=== PATIENT | female | born 1955 | race Caucasian/White ===

== ENCOUNTER 2019-12-30 10:20 | Emergency (ER) | payer MEDICARE, MEDICAID, SELFPAY ==
--- NOTE | ~2019-12-30 | CT_ITS ---
EXAMINATION: CT brain wo con DATE: 12/30/2019 12:01 INDICATION: Head injury. TECHNIQUE: Computed tomography (CT) of the head was performed without intravenous contrast. The mA wa s adjusted according to patient size. Iterative reconstruction technique was employed. The dose-lengt h product was 529.67 mGy-cm. COMPARISON: None FINDINGS: There is no intracranial hemorrhage, acute infarction, or abnormal intracranial mass lesion . The ventricles are normal in size. There is a right frontal lateral scalp hematoma. The paranasal s inuses are clear. The mastoid air cells are normal. The orbits are normal. IMPRESSION: 1. Normal brain. Reviewed, dictated and finalized at location A. IMPRESSION: 1. Normal brain.
[2019-12-30 10:48] VITALS: BP 152/83; PULSE 100; RESP 18; TEMP 37.3; O2SAT 97
--- NOTE | 2019-12-30 12:12 | ED.FALL ---
HPI - Fall General Chief Complaint: Wound/Laceration Stated Complaint: Fell scraped arm and head Source: patient and family Mode of arrival: ambulatory Limitations: no limitations History of Present Illness HPI Narrative: This is 64-year-old female patient presents after she had tripped outdoors and fell on an outstretched right forearm and hit her head has a hematoma right frontal scalp with no loss of consciousness there is no nausea vomiting no blurry vision no headache. Also has abrasions to her right forearm elbow and palm has good range of motion in her arms with no swelling no bruising just abrasions that were visualized. The patient is up-to-date with her tetanus. complaint: fall Onset (ago): hour(s) Fall from: standing Fall witnessed: yes, by family Place fall occurred: street Loss of consciousness: none Prolonged down time: no Symptoms prior to fall: none Context: tripped/slipped Location of injury: head Location of injury - extremities: Right: forearm (abrasions) Severity: mild Related Data Home Medications Medication Instructions Recorded Confirmed atorvastatin 40 mg DAILY 12/30/19 12/30/19 clopidogrel 75 mg DAILY 12/30/19 12/30/19 insulin NPH and regular human 70 unit SUBCUT BID 12/30/19 12/30/19 [Novolin 70/30 U-100 Insulin] lisinopril 40 mg DAILY 12/30/19 12/30/19 metoprolol succinate 50 mg PO DAILY 12/30/19 12/30/19 Allergies Allergy/AdvReac Type Severity Reaction Status Date / Time cephalexin [Keflex] Allergy Intermediate Hives Verified 12/30/19 10:58 No Known Allergies Allergy Mild Verified 12/30/19 10:58 Review of Systems Review of Systems: All systems reviewed & are unremarkable except as noted in HPI and below PMFSH Past Medical History Medical History Diabetes mellitus Family History Family History Other Family history of coronary artery disease Social History Social History Gender identity (if verbalized by the patient): Female Exam Const: General: no acute distress and alert Orientation/consciousness: patient oriented x3 HENMT: Head: normal to inspection, contusion and hematoma Head images: 1. Eyes: Pupils: Equal, round and reactive pupils present Neck: Neck: normal visual inspection Chest: Chest palpation & inspection: normal inspection of the chest and abnormal inspection of the chest Resp: Effort & Inspection: normal respiratory effort Cardio: Rate: regular rate Rhythm: regular rhythm GI: Auscultation: normal bowel sounds : General: Yes no CVA tenderness Back/Spine/Pelvis: Back: no CVA tenderness Skin: General skin exam: normal color Rashes: no rashes Wounds: wounds noted Other: Abrasions noted on right elbow and right palm area Neuro: General: patient oriented x3 and moves all extremities Course Vital Signs Vital signs: Vital Signs Temperature 37.3 C 12/30/19 10:48 Pulse Rate 100 12/30/19 10:48 Respiratory Rate 18 12/30/19 10:48 Blood Pressure 152/83 H 12/30/19 10:48 Pulse Oximetry 97 12/30/19 10:48 Temperature 37.3 C 12/30/19 10:48 Pulse Rate 100 12/30/19 10:48 Respiratory Rate 18 12/30/19 10:48 Blood Pressure 152/83 H 12/30/19 10:48 Pulse Oximetry 97 12/30/19 10:48 Critical Care Time Critical Care Time Critical Care Time: No Discharge Plan Discharge Clinical Impression: Multiple contusions Patient Disposition: Home, Self-Care Condition: Stable Instructions: Antibiotic Form, Concussion (ED), Head Injury (ED) Additional Instructions: follow-up with primary care physician if symptoms persist or worsen. Prescriptions: No Action atorvastatin 40 mg tablet 40 mg DAILY RF: 0 metoprolol succinate 50 mg tablet extended release 24 hr 50 mg PO DAILY RF: 0 Novolin 70/30 U-100 Insulin 100 uni
[2019-12-30 12:35] VITALS: RESP 18
== END 2019-12-30 12:30 | disposition home or self-care (01) ==
PROVIDERS: Emergency Provider Emergency Medicine; PCP Internal Medicine
DX: T14.8XXA Other injury of unspecified body region, initial encounter (principal); E11.9 Type 2 diabetes mellitus without complications; W01.0XXA Fall on same level from slipping, tripping and stumbling without subsequent striking against object, initial encounter
CPT/HCPCS: 70450; 99282; 99284

== ENCOUNTER 2020-07-18 15:13 | Observation (INO) | payer MEDICARE, MEDICAID, SELFPAY ==
[2020-07-18] VITALS (8 sets, daily range): BP systolic 96–161; BP diastolic 42–86; PULSE 82–94; RESP 18–20; TEMP 36.4–37.5; O2SAT 92–98; BMI 25.9
--- NOTE | ~2020-07-18 | CT_ITS ---
EXAMINATION: CT brain wo con EXAM DATE: 07/18/2020 17:55 INDICATION: dizziness, generalized weakness x 7 days TECHNIQUE: Spiral CT of the head was performed without contrast. Axial, coronal and sagittal images were reviewed. The dose-length product (DLP) for this examination was 605.33 mGy-cm. The exposure w as tailored according to patient size, and iterative reconstruction (ASIR) was used as additional dos e reduction technique. Comparison is made to prior examination from 12/30/2019. FINDINGS: There is no acute intraparenchymal hemorrhage. No evidence of intraparenchymal brain mass lesion. No evidence of acute infarction. Please note that initial head CT has limited sensitivity f or small or acute infarctions. There is mild periventricular and subcortical hypodensity, nonspecific but probably related to small vessel ischemic disease. There is mild prominence of the sulci and v entricles related to cerebral atrophy. There is intracranial carotid arteriosclerosis. There are n o extra-axial collections. There is no mass effect or midline shift. The orbits are unremarkable. Soft tissue is unremarkable. The visualized sinuses and mastoid air cells are well aerated. IMPRESSION: 1. No acute intracranial findings. 2. Mild age related findings. Reviewed, dictated and finalized at location A.
--- NOTE | ~2020-07-18 | XR_ITS ---
EXAMINATION: XR chest 2V 07/18/2020 16:00 INDICATION: Shortness of breath. Weakness. Chest tightness. PROCEDURE: 2 view chest COMPARISON: Comparison to multiple prior studies sequentially, with oldest reviewed study dated 05/2008. FINDINGS: The lungs are clear. The cardiomediastinal silhouette is within normal limits. There are no pleural effusions. There is no pneumothorax suspected. IMPRESSION: 1: NO ACUTE CARDIOPULMONARY DISEASE. Reviewed, dictated and finalized at location B.
--- NOTE | 2020-07-18 15:24 | ED.WEAKNESS ---
HPI - Weakness General Chief complaint: Dizziness Stated complaint: weak,chills,dizzy Time Seen by Provider: 07/18/20 15:24 Source: patient Mode of arrival: ambulatory Limitations: no limitations History of Present Illness HPI Narrative: 65-year-old woman comes in today complaining of weakness and chills and lightheadedness when she stands for the last week. Patient states that she has had no cough, sore throat, nausea, vomiting, diarrhea, abdominal pain or rash. She denies any sick exposures. Patient states that he has a history of coronary artery disease but has had no chest pain or shortness of breath. MD Complaint: generalized weakness Onset (ago): week(s) (1) Duration: constant Migration: none Severity: mild Relieving factors: rest Related Data Home Medications Medication Instructions Recorded Confirmed atorvastatin 40 mg DAILY 12/30/19 12/30/19 insulin NPH and regular human 70 unit SUBCUT BID 12/30/19 12/30/19 [Novolin 70/30 U-100 Insulin] metoprolol succinate 50 mg PO DAILY 12/30/19 12/30/19 aspirin [Aspirin Childrens] 81 mg PO DAILY 07/18/20 07/18/20 lisinopril-hydrochlorothiazide 2 tablet PO DAILY 07/18/20 07/18/20 multivit with min-folic acid 1 tablet PO DAILY 07/18/20 07/18/20 [Women's Multivitamin Gummies] nifedipine [Adalat CC] 30 mg PO DAILY 07/18/20 07/18/20 omega 0-yhy-bzq-fish oil [Fish Oil] 1 cap PO DAILY 07/18/20 07/18/20 Allergies Allergy/AdvReac Type Severity Reaction Status Date / Time cephalexin [Keflex] Allergy Intermediate Hives Verified 12/30/19 10:58 No Known Allergies Allergy Mild Verified 12/30/19 10:58 Review of Systems Constitutional: Constitutional: Reports chills, Denies fever(s) and Reports weakness Eyes: Eyes: Denies change in vision and Denies photophobia ENT: Denies dysphagia, Denies nasal congestion and Denies sore throat Cardiovascular: Cardiovascular: Denies chest pain and Denies radiating jaw, neck or arm pain Respiratory: Respiratory: Denies cough, Denies dyspnea and Denies wheezing Gastrointestinal: Gastrointestinal: Denies abdominal pain, Denies diarrhea, Denies nausea and Denies vomiting Genitourinary: Genitourinary: Denies nocturia and Denies dysuria Musculoskeletal: Musculoskeletal: Denies arthralgias, Denies joint swelling and Denies muscle cramps Integumentary/Breasts: Skin/Breast: Denies pruritus, Denies erythema and Denies rash Neurologic: Denies vertigo, Denies dizziness and Denies syncope Endocrine: Endocrine: Denies polydipsia and Denies polyuria Hematologic/Lymphatic: Hematologic/Lymphatic: Denies easy bleeding and Denies easy bruising Allergic/Immunologic: Allergic/Immunologic: Denies lip swelling and Denies tongue swelling PMFSH Past Medical History Medical History Coronary artery disease Diabetes mellitus Hyperlipidemia Hypertension Surgical History Surgical History History of appendectomy S/P coronary artery stent placement x2 Family History Family History Other Family history of coronary artery disease Social History Social History Smoking status: Never smoker Alcohol use details: rare Substance use: never Living arrangements: alone Occupation/Education: retired Gender identity (if verbalized by the patient): Female Exam Const: General: healthy appearing and alert Orientation/consciousness: patient oriented x3 Limitations: no limitations Other: mild acute distress HENMT: Head: normal to inspection Ears: external ears normal, TM's normal bilaterally and EAC's normal General nose exam: Normal nares present Face and sinus: normal facial exam Mouth: Yes moist mucous membranes Throat: posterior oropharynx normal Eyes: Conjunctivae: conjunctivae normal Pupils: Equal, round a
--- NOTE | 2020-07-18 15:30 | ECG_ITS ---
Measurements Intervals [place] Rate: 85 P: 54 FL: 124 QRS: 67 QRSD: 84 T: 81 QT: 336 QTc: 400 Interpretive Statements SINUS RHYTHM BASELINE WANDER- I, II, III, AVR, AVL, AVF NORMAL ECG Electronically Signed On 07-18-2020 15:58:02 CDT by Ricki Torrez D.O.
[2020-07-18 15:48] LABS: Basophils Absolute Auto 0.01 K/mm3 (0.00-0.10); Basophils Percent Auto 0.1 % (0.0-1.0); Eosinophils Absolute Auto 0.02 K/mm3 (0.02-0.50); Eosinophils Percent Auto 0.3 % (1.0-6.0); Hematocrit 34.9 % (35.0-42.0); Hemoglobin 11.9 g/dL (11.7-13.8); Immature Granulocyte Absolute 0.03 K/mm3 (0.00-0.00); Immature Granulocyte Percent A 0.4 % (0.0-0.0); Lymphocytes Absolute Auto 1.53 K/mm3 (1.10-4.50); Lymphocytes Percent Auto 21.4 % (18.0-42.0); Mean Corpuscular HGB Conc 34.1 g/dL (32.0-36.0); Mean Corpuscular Volume 90.9 fL (78.0-102.0); Mean Platelet Volume 9.2 fl (9.2-11.8); Monocytes Absolute Auto 0.44 K/mm3 (0.10-0.90); Monocytes Percent Auto 6.2 % (2.0-11.0); Neutrophils Absolute Auto 5.1 K/mm3 (1.7-7.2); Neutrophils Percent Auto 71.6 % (50.0-70.0); Platelet Count Result 184 K/mm3 (150-420); Red Blood Count 3.84 M/mm3 (4.20-5.40); Red Cell Distribution Width 12.6 % (11.6-14.4); White Blood Count 7.2 K/mm3 (4.8-10.8)
[2020-07-18] MEDS: SODIUM CHLORIDE 0.9% IV 1,000 ML 999 ML IV CONT (15:49)
[2020-07-18 16:03] LABS: D Dimer 0.47 mg/L (0.19-0.50); Partial Thromboplastin Time 27.3 SEC (22.3-31.6)
[2020-07-18 16:06] LABS: Lactic Acid Reflex 1.4 mmol/L (0.4-2.0)
[2020-07-18 16:12] LABS: Alanine Aminotransferase 27 U/L (14-59); Albumin Level 3.3 g/dL (3.4-5.0); Alkaline Phosphatase 87 U/L (46-116); Anion Gap 9 mmol/L (8-16); Aspartate Amino Transferase 18 U/L (15-37); Bilirubin,Total 0.8 mg/dL (0.00-1.00); Blood Urea Nitrogen 25 mg/dL (7-18); CRP 2.8 mg/dL (0.0-0.9); Carbon Dioxide 26 mmol/L (21-32); Chloride 92 mmol/L (98-108); Estimated Glomerular Filt Rate 52; Glucose 229 mg/dL (70-99); Osmolality Calculated 275 mOsm/kg (285-295); Potassium 4.3 mmol/L (3.5-5.1); Sodium 127 mmol/L (136-145); Total Protein 7.8 g/dL (6.4-8.2)
[2020-07-18 16:13] LABS: Troponin I < 0.02 ng/mL (0.00-0.056)
[2020-07-18 16:26] LABS: Creatine Kinase 68 U/L (26-192); Lactate Dehydrogenase 237 U/L (81-234)
[2020-07-18 16:36] LABS: Add Urine Microscopic? YES; Appearance Urine Clear (Clear); Bilirubin Urine Negative (Negative); Blood Urine Negative (Negative); Color Urine Yellow (Yellow); Glucose Urine UA Trace (Negative); Ketones Urine Negative (Negative); Leukocyte Esterase Ur Negative LEU/UL (Negative); Nitrate Urine Negative (Negative); Protein Urine Negative (Negative); Urobilinogen Urine 0.2 mg/dL (0.2-1.0); pH Urine 5.5 (5.0-8.0)
[2020-07-18 16:44] LABS: RBC Urine 0-2 /hpf (0-2); WBC Urine 0-3 /hpf (0-3)
[2020-07-18 16:45] LABS: Bacteria Urine Trace /hpf; Squamous Epithelial Cell Urine Few /hpf (Few)
--- NOTE | 2020-07-18 18:40 | PC.NURSE ---
Admitted to 210 for PUI Covid, telemetry applied, admit diagnosis of dehydration and hyponatremia, states 1 week hx of dizzyness, weakness, body aches, no fever, no n/v/d,
[2020-07-18 19:23] LABS: BNP 43.3 pg/mL (0-100); Troponin I < 0.02 ng/mL (0.00-0.056)
[2020-07-18] MEDS: SODIUM CHLORIDE 0.9% IV 1,000 ML 100 ML IV CONT (19:23)
--- NOTE | 2020-07-18 20:00 | PC.NURSE ---
Patient watching tv. Respirations even and unlabored. Denies pain/complaints/needs/dizziness @ this time. IVF infusing to site in RFA without difficulty. No distress noted. Call light in reach.
[2020-07-18] MEDS: INSULIN HUMAN ISOPHAN/REGULAR 70/30 (*BKC) 100 UNITS/ML 70 UNITS SUB-Q (20:10)
--- NOTE | 2020-07-18 20:20 | PC.NURSE ---
Patient requested/given turkey sandwich and fruit cup. Call light in reach.
[2020-07-18 21:05] LABS: Glucose Point of Care 236 (65-105)
--- NOTE | 2020-07-18 21:50 | PC.NURSE ---
Patient ambulated to/from bathroom with IV pole with CGA and steady gait. Respirations remained even and unlabored. Denies SOB/pain/complaints/needs/dizziness @ this time. IVF infusing to site in RFA without difficulty. No distress noted. Call light in reach.
[2020-07-18 22:26] LABS: Anion Gap 8 mmol/L (8-16); Blood Urea Nitrogen 19 mg/dL (7-18); Calcium 8.9 mg/dL (8.5-10.1); Carbon Dioxide 27 mmol/L (21-32); Chloride 98 mmol/L (98-108); Estimated CRCL calculation 49 ml/min; Estimated Glomerular Filt Rate > 60; Glucose 197 mg/dL (70-99); Osmolality Calculated 283 mOsm/kg (285-295); Potassium 4.2 mmol/L (3.5-5.1); Sodium 133 mmol/L (136-145)
[2020-07-18 22:28] LABS: Troponin I < 0.02 ng/mL (0.00-0.056)
--- NOTE | 2020-07-19 01:05 | PC.NURSE ---
Patient appears to be sleeping by the rise and fall of her chest. No distress noted. IVF infusing to site in RFA without difficulty. Call light in reach.
[2020-07-19 03:46] VITALS: BP 141/62; PULSE 88; RESP 18; TEMP 37.2; O2SAT 94
[2020-07-19] MEDS: SODIUM CHLORIDE 0.9% IV 1,000 ML 100 ML IV CONT (05:30)
[2020-07-19 05:49] LABS: Basophils Absolute Auto 0.02 K/mm3 (0.00-0.10); Basophils Percent Auto 0.3 % (0.0-1.0); Eosinophils Absolute Auto 0.06 K/mm3 (0.02-0.50); Eosinophils Percent Auto 0.8 % (1.0-6.0); Hemoglobin 11.2 g/dL (11.7-13.8); Immature Granulocyte Absolute 0.02 K/mm3 (0.00-0.00); Immature Granulocyte Percent A 0.3 % (0.0-0.0); Lymphocytes Absolute Auto 2.73 K/mm3 (1.10-4.50); Lymphocytes Percent Auto 34.5 % (18.0-42.0); Mean Corpuscular HGB Conc 33.9 g/dL (32.0-36.0); Mean Corpuscular Hemoglobin 30.9 pg (27.0-31.0); Mean Corpuscular Volume 90.9 fL (78.0-102.0); Mean Platelet Volume 9.2 fl (9.2-11.8); Monocytes Absolute Auto 0.53 K/mm3 (0.10-0.90); Monocytes Percent Auto 6.7 % (2.0-11.0); Neutrophils Absolute Auto 4.6 K/mm3 (1.7-7.2); Neutrophils Percent Auto 57.4 % (50.0-70.0); Platelet Count Result 206 K/mm3 (150-420); Red Blood Count 3.63 M/mm3 (4.20-5.40); Red Cell Distribution Width 12.6 % (11.6-14.4); White Blood Count 7.9 K/mm3 (4.8-10.8)
[2020-07-19 06:04] LABS: Anion Gap 8 mmol/L (8-16); Blood Urea Nitrogen 15 mg/dL (7-18); Calcium 8.6 mg/dL (8.5-10.1); Carbon Dioxide 27 mmol/L (21-32); Chloride 100 mmol/L (98-108); Estimated CRCL calculation 57 ml/min; Estimated Glomerular Filt Rate > 60; Glucose 57 mg/dL (70-99); Osmolality Calculated 278 mOsm/kg (285-295); Phosphorus 2.8 mg/dL (2.6-4.7); Potassium 3.8 mmol/L (3.5-5.1); Sodium 135 mmol/L (136-145)
--- NOTE | 2020-07-19 07:30 | PC.NURSE ---
bedside glucose 58, orange juice with sugar given, denies s/s of low glucose, advised breakfast would be here at 0800
[2020-07-19 08:00] VITALS: BP 145/53; PULSE 79; RESP 18; TEMP 35.9; O2SAT 96
--- NOTE | 2020-07-19 08:19 | PC.NURSE ---
EAting breakfast at this time, no dizzyness noted, feels good today
[2020-07-19 08:26] LABS: Glucose Point of Care 58 (65-105)
--- NOTE | 2020-07-19 09:00 | PC.NURSE ---
fluids infusing, insulin held at this time, patient aware, did receive insulin late in day yesterday, no dizzyness, denies needs, sitting quietly in bed,
--- NOTE | 2020-07-19 09:01 | PHAR ---
07/19/20 08:45 - SPOKE W/[facility] AND CONFIRMED PT. TAKES HUMULIN 70/30 INSULIN 70U BID. TLS
[2020-07-19 09:06] VITALS: PULSE 79
[2020-07-19] MEDS: OMEGA 3 POLYUNSAT FATTY ACIDS 1 GM CAP PO (09:06)
[2020-07-19] MEDS: METOPROLOL SUCCINATE EXT REL 50 MG TABCR 100 MG PO (09:06)
[2020-07-19] MEDS: ASPIRIN 81 MG CHEWABLE TABLET PO (09:06)
[2020-07-19] MEDS: THERAPEUTIC MULTIVITAMINS/MINERALS TAB (*BKC) 1 TABLET PO (09:07)
[2020-07-19] MEDS: lisinopriL 20 MG TABLET 40 MG PO (09:07)
[2020-07-19] MEDS: NIFEdipine 30 MG TAB.ER.24 PO (09:08)
[2020-07-19] MEDS: ATORVASTATIN 40 MG TABLET PO (09:08)
--- NOTE | 2020-07-19 09:54 | PM.SD ---
Same Day Admit/Disch: HPI History of Present Illness Chief complaint: DEHYDRATION HYPONATREMIA Narrative: Sujata Prakash is a 65 year old female that presents to our ED with complaints of weakness chills dizziness and lightheadedness for approximately 1 week. Patient has a past medical history of CAD, diabetes mellitus, HLD, hypertension. On admission patient's WBC was within normal limits, H&H 11.2/33, sodium 133, potassium BUN and creatinine within normal limits, glucose 197, lactic acid within normal limit, troponin negative x2, BUN 43.3. Covid test pending, chest x-ray and head CT unremarkable patient is being admitted for gastritis, hypernatremia and dehydration. Today she notes that her condition has improved she no longer had weakness, chills, dizziness or lightheaded. She believes that the IV hydration helped her. The patient denies SOB, CP, palpitation, extremity numbness, lightheadedness, dizziness, constipation, diarrhea, chills, or fever. Patient is at baseline and agrees that she is ready for discharge today PMFSH Past Medical History Medical History Coronary artery disease Diabetes mellitus Hyperlipidemia Hypertension Surgical History Surgical History History of appendectomy S/P coronary artery stent placement x2 Family History Family History Other Family history of coronary artery disease Social History Social History Smoking status: Never smoker Alcohol use details: rare Substance use: never Living arrangements: alone Occupation/Education: retired Gender identity (if verbalized by the patient): Female Spiritual care concerns: No Same Day Admit/Disch: Med Pre-admit Medications Home Medications Medication Instructions Recorded Confirmed Type Novolin 70/30 U-100 Insulin 70 unit SUBCUT BID 12/30/19 07/18/20 History atorvastatin 40 mg PO DAILY 12/30/19 07/18/20 History metoprolol succinate [Toprol XL] 100 mg PO DAILY 12/30/19 07/18/20 History Women's Multivitamin Gummies 1 tablet PO DAILY 07/18/20 07/18/20 History aspirin [Aspirin Childrens] 81 mg PO DAILY 07/18/20 07/18/20 History lisinopril-hydrochlorothiazide 2 tablet PO DAILY 07/18/20 07/18/20 History nifedipine [Adalat CC] 30 mg PO DAILY 07/18/20 07/18/20 History omega 9-ahp-rpr-fish oil [Fish Oil] 1 cap PO DAILY 07/18/20 07/18/20 History Exam Narrative: Exam Narrative: GENERAL: This is a well-nourished, well-developed patient, in no apparent distress. HEAD: normocephalic, atraumatic. EYES: PERRL. Sclera clear/white. Vision is grossly intact. EARS: External ears normal, auditory canals clear and without drainage, TMs normal without perforation. Hearing grossly intact. NOSE: External nose normal with no obvious nasal discharge, nares without redness, no rhinorrhea. THROAT: Mucous membranes moist, posterior pharynx clear. NECK: Neck supple, non-tender without lymphadenopathy, masses or thyromegaly. CARDIOVASCULAR: Regular rate and rhythm without murmurs, gallops, or rubs. RESPIRATORY: Clear to auscultation. Breath sounds equal bilaterally. No wheezes, rales, or rhonchi. GASTROINTESTINAL: Abdomen soft, non-tender, nondistended. Bowel sounds are active. No hepato-splenomegaly, or palpable masses. No guarding. SKIN: warm, intact with no suspicious lesions or rash, good texture and turgor. NEURO: awake, alert, and oriented to person, place and time. There were no obvious focal neurologic abnormalities. Steady gait EXTREMITIES: Normal range of motion. No edema. No calf tenderness. Negative Homans sign bilaterally. BACK: Nontender without deformity or crepitance. No flank tenderness. DS: Data Data Completed and Pending Labs on day of discharge: Labs from last 24 hours 07/19/20 07/19/20 07/19/20 07:33 05:41 05
[2020-07-19 11:31] LABS: Glucose Point of Care 187 (65-105)
--- NOTE | 2020-07-19 11:31 | PC.NURSE ---
Called for ride home, saline lock removed, telemetry dc'd, up in room with no dizzyness
[2020-07-19 12:00] VITALS: PULSE 70; RESP 18; TEMP 36.1; O2SAT 95
--- NOTE | 2020-07-19 12:48 | PC.NURSE ---
Discharge instructions reveiwed with pateint, just waiting on ride home, up in room with no dizziness, no chest pain
--- NOTE | 2020-07-19 13:18 | PC.NURSE ---
WAiting on ride home, denies needs,
--- NOTE | 2020-07-19 13:35 | PC.NURSE ---
Discharge to home via wheel chair, discharge instructions reviewed with patient, no questions voiced
[2020-07-19 23:56] LABS: SARS-CoV-2 RNA PCR Positive
--- NOTE | 2020-07-28 13:52 | PC.NURSE ---
Pt states she understood her discharge instructions and everybody treated me wonderful, the nurses were so kind .
== END 2020-07-19 13:35 | disposition home or self-care (01) ==
LOC: CHSED 17:02 → CHS2ND 17:41
PROVIDERS: Admitting Provider Emergency Medicine; Emergency Provider Emergency Medicine; PCP Internal Medicine; Visit Provider Emergency Medicine
DX: U07.1 COVID-19 (principal); E86.0 Dehydration; E87.1 Hypo-osmolality and hyponatremia; I25.10 Atherosclerotic heart disease of native coronary artery without angina pectoris; E11.9 Type 2 diabetes mellitus without complications; E78.5 Hyperlipidemia, unspecified; I10 Essential (primary) hypertension; Z95.5 Presence of coronary angioplasty implant and graft
CPT/HCPCS: 36415; 70450; 71046; 80048; 80053; 81001; 82550; 83605; 83615; 83735; 83880; 84100; 84484; 85025; 85380; 85610; 85730; 86140; 87040; 87635; 93005; 96360; 96361; 99285; A9270; C9803; G0378; J1815; J7030; U0003

== ENCOUNTER 2020-08-02 20:48 | Emergency (ER) | payer MEDICARE, MEDICAID, SELFPAY ==
[2020-08-02 21:04] VITALS: BP 118/95; PULSE 106; RESP 20; TEMP 36.8; O2SAT 99
--- NOTE | 2020-08-02 21:04 | ED.WEAKNESS ---
HPI - Weakness General Chief complaint: Weakness Stated complaint: Weak dry mouth Time Seen by Provider: 08/02/20 21:04 Source: patient Mode of arrival: ambulatory Limitations: no limitations History of Present Illness HPI Narrative: 65-year-old woman with a history of diabetes, coronary artery disease, and hypertension comes in today complaining of weakness and dry mouth. Patient states that she was here 2 weeks ago, had hyponatremia, and was diagnosed with COVID-19. She was kept overnight and went home the next day after her sodium was corrected with normal saline. She also complains of a sore throat. Patient states that she has had no chest pain, shortness of breath, nausea, vomiting, dysuria, hematuria, abdominal pain. MD Complaint: generalized weakness Onset (ago): day(s) Duration: constant Location: generalized Migration: none Severity: mild Relieving factors: none Exacerbating factors: none Context: history of similar Related Data Home Medications Medication Instructions Recorded Confirmed Novolin 70/30 U-100 Insulin 70 unit SUBCUT BID 12/30/19 07/18/20 atorvastatin 40 mg PO DAILY 12/30/19 07/18/20 metoprolol succinate [Toprol XL] 100 mg PO DAILY 12/30/19 07/18/20 Women's Multivitamin Gummies 1 tablet PO DAILY 07/18/20 07/18/20 aspirin [Aspirin Childrens] 81 mg PO DAILY 07/18/20 07/18/20 nifedipine [Adalat CC] 30 mg PO DAILY 07/18/20 07/18/20 omega 3-dcg-tit-fish oil [Fish Oil] 1 cap PO DAILY 07/18/20 07/18/20 Allergies Allergy/AdvReac Type Severity Reaction Status Date / Time cephalexin [Keflex] Allergy Intermediate Hives Verified 08/02/20 21:10 No Known Allergies Allergy Mild Verified 08/02/20 21:10 Review of Systems Constitutional: Constitutional: Reports as per HPI, Denies chills, Denies fever(s) and Reports weakness Eyes: Eyes: Denies change in vision and Denies photophobia ENT: Denies dysphagia, Denies nasal congestion and Denies sore throat Cardiovascular: Cardiovascular: Denies chest pain and Denies radiating jaw, neck or arm pain Respiratory: Respiratory: Denies cough, Denies dyspnea and Denies wheezing Gastrointestinal: Gastrointestinal: Denies abdominal pain, Denies diarrhea, Denies nausea and Denies vomiting Genitourinary: Genitourinary: Denies hematuria, Denies nocturia and Denies dysuria Musculoskeletal: Musculoskeletal: Denies arthralgias and Denies joint swelling Integumentary/Breasts: Skin/Breast: Denies pruritus, Denies erythema and Denies rash Neurologic: Denies vertigo, Denies dizziness and Denies syncope Hematologic/Lymphatic: Hematologic/Lymphatic: Denies easy bleeding and Denies easy bruising Allergic/Immunologic: Allergic/Immunologic: Denies lip swelling and Denies tongue swelling PMFSH Past Medical History Medical History Coronary artery disease Diabetes mellitus Hyperlipidemia Hypertension Surgical History Surgical History History of appendectomy S/P coronary artery stent placement x2 Family History Family History Other Family history of coronary artery disease Social History Social History Smoking status: Never smoker Substance use: never Gender identity (if verbalized by the patient): Female Spiritual care concerns: No Exam Const: General: no acute distress and alert Orientation/consciousness: patient oriented x3 Limitations: no limitations HENMT: Head: normal to inspection Ears: TM's normal bilaterally and EAC's normal General nose exam: Normal nares present Face and sinus: normal facial exam Mouth: Yes moist mucous membranes Throat: posterior oropharynx normal Eyes: Conjunctivae: conjunctivae normal Pupils: Equal, round and reactive pupils present EOM: EOMs intact bilaterally Direct Ophthalmoscopy: no photop
--- NOTE | 2020-08-02 21:07 | ECG_ITS ---
Measurements Intervals [place] Rate: 97 P: 67 RI: 144 QRS: 67 QRSD: 85 T: 65 QT: 310 QTc: 394 Interpretive Statements SINUS RHYTHM MINIMAL Q WAVES- INF/LAT LEADS BORDERLINE ECG Electronically Signed On 08-03-2020 7:12:58 [employer] by Ricki Torrez D.O.
[2020-08-02 21:29] LABS: Add Urine Microscopic? YES; Appearance Urine Clear (Clear); Bilirubin Urine Negative (Negative); Blood Urine Negative (Negative); Color Urine Yellow (Yellow); Glucose Urine UA 2+ (Negative); Ketones Urine Negative (Negative); Leukocyte Esterase Ur Negative (Negative); Nitrate Urine Negative (Negative); Protein Urine Negative (Negative); Specific Grav Ur <= 1.005 (1.010-1.020); Urobilinogen Urine 0.2 mg/dL (0.2-1.0)
[2020-08-02 21:29] LABS: Basophils Absolute Auto 0.06 K/mm3 (0.00-0.10); Basophils Percent Auto 0.6 % (0.0-1.0); Eosinophils Absolute Auto 0.19 K/mm3 (0.02-0.50); Eosinophils Percent Auto 1.7 % (1.0-6.0); Hematocrit 32.9 % (35.0-42.0); Hemoglobin 11.4 g/dL (11.7-13.8); Immature Granulocyte Absolute 0.05 K/mm3 (0.00-0.00); Immature Granulocyte Percent A 0.5 % (0.0-0.0); Lymphocytes Absolute Auto 2.84 K/mm3 (1.10-4.50); Lymphocytes Percent Auto 26.1 % (18.0-42.0); Mean Corpuscular HGB Conc 34.7 g/dL (32.0-36.0); Mean Corpuscular Hemoglobin 30.9 pg (27.0-31.0); Mean Corpuscular Volume 89.2 fL (78.0-102.0); Mean Platelet Volume 8.5 fl (9.2-11.8); Monocytes Absolute Auto 0.73 K/mm3 (0.10-0.90); Monocytes Percent Auto 6.7 % (2.0-11.0); Neutrophils Percent Auto 64.4 % (50.0-70.0); Platelet Count Result 277 K/mm3 (150-420); Red Blood Count 3.69 M/mm3 (4.20-5.40); Red Cell Distribution Width 12.4 % (11.6-14.4); White Blood Count 10.9 K/mm3 (4.8-10.8)
[2020-08-02 21:35] LABS: Bacteria Urine Trace /hpf; RBC Urine 0-2 /hpf (0-2); Squamous Epithelial Cell Urine Few /hpf (Few); WBC Urine 0-3 /hpf (0-3)
[2020-08-02 21:39] VITALS: BP 136/66; PULSE 95
[2020-08-02 21:40] VITALS: BP 136/65; BP 144/68; PULSE 101; PULSE 98
[2020-08-02 21:48] LABS: Lactic Acid Reflex 2.5 mmol/L (0.4-2.0)
[2020-08-02 21:54] LABS: Alanine Aminotransferase 26 U/L (14-59); Albumin Level 3.2 g/dL (3.4-5.0); Alkaline Phosphatase 86 U/L (46-116); Anion Gap 9 mmol/L (8-16); Aspartate Amino Transferase 10 U/L (15-37); Bilirubin,Total 0.6 mg/dL (0.00-1.00); Blood Urea Nitrogen 17 mg/dL (7-18); Calcium 9.2 mg/dL (8.5-10.1); Carbon Dioxide 26 mmol/L (21-32); Chloride 89 mmol/L (98-108); Estimated CRCL calculation 44 ml/min; Estimated Glomerular Filt Rate 56; Glucose 281 mg/dL (70-99); Lactate Dehydrogenase 167 U/L (81-234); Osmolality Calculated 269 mOsm/kg (285-295); Potassium 4.2 mmol/L (3.5-5.1); Sodium 124 mmol/L (136-145); Total Protein 7.5 g/dL (6.4-8.2)
[2020-08-02 21:55] LABS: Troponin I < 0.02 ng/mL (0.00-0.056)
[2020-08-02 21:56] LABS: Thyroid Stimulating Hormone Reflex 0.63 u/IU/mL (0.36-3.74)
[2020-08-02] MEDS: SODIUM CHLORIDE 0.9% IV 1,000 ML 999 ML IV CONT (22:07)
[2020-08-02 22:50] VITALS: PULSE 95; RESP 20; O2SAT 99
== END 2020-08-02 22:51 | disposition home or self-care (01) ==
PROVIDERS: Emergency Provider Emergency Medicine; PCP Internal Medicine
DX: E87.1 Hypo-osmolality and hyponatremia (principal)
CPT/HCPCS: 36415; 80053; 81001; 83605; 83615; 84443; 84484; 85025; 93005; 96360; 99284; J7030

== ENCOUNTER 2020-08-05 14:35 | Emergency (ER) | payer MEDICARE, MEDICAID, SELFPAY ==
[2020-08-05 15:23] VITALS: BP 149/68; PULSE 92; RESP 16; TEMP 37; O2SAT 98
[2020-08-05 16:22] LABS: Basophils Absolute Auto 0.05 K/mm3 (0.00-0.10); Basophils Percent Auto 0.6 % (0.0-1.0); Eosinophils Absolute Auto 0.14 K/mm3 (0.02-0.50); Eosinophils Percent Auto 1.8 % (1.0-6.0); Hematocrit 36.3 % (35.0-42.0); Hemoglobin 12.1 g/dL (11.7-13.8); Immature Granulocyte Absolute 0.05 K/mm3 (0.00-0.00); Immature Granulocyte Percent A 0.6 % (0.0-0.0); Lymphocytes Absolute Auto 2.05 K/mm3 (1.10-4.50); Lymphocytes Percent Auto 26.5 % (18.0-42.0); Mean Corpuscular HGB Conc 33.3 g/dL (32.0-36.0); Mean Corpuscular Hemoglobin 30.3 pg (27.0-31.0); Mean Corpuscular Volume 90.8 fL (78.0-102.0); Mean Platelet Volume 8.7 fl (9.2-11.8); Monocytes Absolute Auto 0.47 K/mm3 (0.10-0.90); Monocytes Percent Auto 6.1 % (2.0-11.0); Neutrophils Percent Auto 64.4 % (50.0-70.0); Platelet Count Result 273 K/mm3 (150-420); Red Cell Distribution Width 12.7 % (11.6-14.4); White Blood Count 7.7 K/mm3 (4.8-10.8)
[2020-08-05 16:36] LABS: Alanine Aminotransferase 28 U/L (14-59); Albumin Level 3.5 g/dL (3.4-5.0); Alkaline Phosphatase 88 U/L (46-116); Anion Gap 6 mmol/L (8-16); Aspartate Amino Transferase 11 U/L (15-37); Bilirubin,Total 0.6 mg/dL (0.00-1.00); Blood Urea Nitrogen 13 mg/dL (7-18); Calcium 9.6 mg/dL (8.5-10.1); Carbon Dioxide 29 mmol/L (21-32); Chloride 97 mmol/L (98-108); Estimated CRCL calculation 56 ml/min; Estimated Glomerular Filt Rate > 60; Glucose 223 mg/dL (70-99); Osmolality Calculated 281 mOsm/kg (285-295); Potassium 4.8 mmol/L (3.5-5.1); Sodium 132 mmol/L (136-145); Total Protein 8.2 g/dL (6.4-8.2)
--- NOTE | 2020-08-05 16:45 | ED.WEAKNESS ---
HPI - Weakness General Chief complaint: Weakness Stated complaint: weakness, dry mouth, light headedness Source: patient Mode of arrival: ambulatory Limitations: no limitations History of Present Illness HPI Narrative: This is a 65-year-old female with a history of hypertension was seen in the emergency department about a week or so ago and had a sodium level that was 124, felt some weakness and dizziness was on lisinopril with hydrochlorothiazide, like hydrochlorothiazide was discontinued and the patient had contacted her primary care physician which wanted her to perform another sodium level but the patient felt anxious and wanted her sodium levels evaluated before Friday. Patient is stable afebrile no chest pain no shortness of breath did complain of some generalized weakness but it was more of a concern with her sodium level. Complaint: generalized weakness Onset (ago): day(s) Duration: improved Severity: mild Relieving factors: none Exacerbating factors: none Related Data Home Medications Medication Instructions Recorded Confirmed Novolin 70/30 U-100 Insulin 70 unit SUBCUT BID 12/30/19 07/18/20 atorvastatin 40 mg PO DAILY 12/30/19 07/18/20 metoprolol succinate [Toprol XL] 100 mg PO DAILY 12/30/19 07/18/20 Women's Multivitamin Gummies 1 tablet PO DAILY 07/18/20 07/18/20 aspirin [Aspirin Childrens] 81 mg PO DAILY 07/18/20 07/18/20 nifedipine [Adalat CC] 30 mg PO DAILY 07/18/20 07/18/20 omega 8-ksi-sup-fish oil [Fish Oil] 1 cap PO DAILY 07/18/20 07/18/20 Allergies Allergy/AdvReac Type Severity Reaction Status Date / Time cephalexin [Keflex] Allergy Intermediate Hives Verified 08/02/20 21:10 No Known Allergies Allergy Mild Verified 08/02/20 21:10 Review of Systems Review of Systems: All systems reviewed & are unremarkable except as noted in HPI and below PMFSH Past Medical History Medical History Coronary artery disease Diabetes mellitus Hyperlipidemia Hypertension Surgical History Surgical History History of appendectomy S/P coronary artery stent placement x2 Family History Family History Other Family history of coronary artery disease Social History Social History Smoking status: Never smoker Substance use: never Gender identity (if verbalized by the patient): Female Spiritual care concerns: No Exam Const: General: no acute distress and alert Orientation/consciousness: patient oriented x3 HENMT: Head: normal to inspection Eyes: Conjunctivae: conjunctivae normal Pupils: Equal, round and reactive pupils present EOM: EOMs intact bilaterally Direct Ophthalmoscopy: no photophobia Neck: Neck: normal visual inspection Chest: Chest palpation & inspection: normal inspection of the chest Resp: Effort & Inspection: normal respiratory effort Auscultation: clear to auscultation bilaterally Cardio: Rate: regular rate Rhythm: regular rhythm GI: GI Palp: Yes Soft to palpation Auscultation: normal bowel sounds : General: Yes no CVA tenderness Urinary Catheter: Urinary Catheter: patent and draining Neuro: General: patient oriented x3, moves all extremities, no meningeal signs and no focal motor deficits Extrem: General: normal to inspection and no pedal edema Psych: Mental Status: mental status grossly normal Course Course Emergency Course: Patient reassessed and informed of sodium levels which gave the patient reassurance and feeling stable with currently no symptoms. Vital Signs Vital signs: Vital Signs Temperature 37.0 C 08/05/20 15:23 Pulse Rate 92 08/05/20 15:23 Respiratory Rate 16 08/05/20 15:23 Blood Pressure 149/68 H 08/05/20 15:23 Pulse Oximetry 98 08/05/20 15:23 Temperature 37.0 C 08/05/20 15:23 Pulse Rate 92 11/0
[2020-08-05 17:10] VITALS: BP 140/69; PULSE 82; RESP 16; O2SAT 99
== END 2020-08-05 17:10 | disposition home or self-care (01) ==
PROVIDERS: Emergency Provider Emergency Medicine; PCP Internal Medicine
DX: E87.1 Hypo-osmolality and hyponatremia (principal); I25.10 Atherosclerotic heart disease of native coronary artery without angina pectoris; E11.9 Type 2 diabetes mellitus without complications; E78.5 Hyperlipidemia, unspecified; I10 Essential (primary) hypertension
CPT/HCPCS: 36415; 80053; 85025; 99282; 99283

== ENCOUNTER 2020-08-07 07:00 | Outpatient (CLI) | payer MEDICARE, MEDICAID, SELFPAY ==
[2020-08-07 07:12] LABS: Basophils Absolute Auto 0.03 K/mm3 (0.00-0.10); Basophils Percent Auto 0.4 % (0.0-1.0); Eosinophils Absolute Auto 0.29 K/mm3 (0.02-0.50); Eosinophils Percent Auto 4.1 % (1.0-6.0); Hematocrit 35.8 % (35.0-42.0); Hemoglobin 11.8 g/dL (11.7-13.8); Immature Granulocyte Absolute 0.04 K/mm3 (0.00-0.00); Immature Granulocyte Percent A 0.6 % (0.0-0.0); Lymphocytes Percent Auto 36.3 % (18.0-42.0); Mean Corpuscular Hemoglobin 30.8 pg (27.0-31.0); Mean Corpuscular Volume 93.5 fL (78.0-102.0); Mean Platelet Volume 8.4 fl (9.2-11.8); Monocytes Absolute Auto 0.47 K/mm3 (0.10-0.90); Monocytes Percent Auto 6.6 % (2.0-11.0); Neutrophils Absolute Auto 3.7 K/mm3 (1.7-7.2); Platelet Count Result 252 K/mm3 (150-420); Red Blood Count 3.83 M/mm3 (4.20-5.40); Red Cell Distribution Width 13.2 % (11.6-14.4); White Blood Count 7.2 K/mm3 (4.8-10.8)
[2020-08-07 07:33] LABS: Hemoglobin A1C 7.8 % (<5.7)
[2020-08-07 08:04] LABS: Alanine Aminotransferase 31 U/L (14-59); Albumin Level 3.3 g/dL (3.4-5.0); Alkaline Phosphatase 81 U/L (46-116); Anion Gap 9 mmol/L (8-16); Aspartate Amino Transferase < 10 U/L (15-37); Bilirubin,Total 0.7 mg/dL (0.00-1.00); Blood Urea Nitrogen 14 mg/dL (7-18); Calcium 9.2 mg/dL (8.5-10.1); Carbon Dioxide 30 mmol/L (21-32); Chloride 100 mmol/L (98-108); Estimated Glomerular Filt Rate > 60; Glucose 191 mg/dL (70-99); Osmolality Calculated 293 mOsm/kg (285-295); Sodium 139 mmol/L (136-145); Total Protein 7.1 g/dL (6.4-8.2)
[2020-08-09 07:45] LABS: Osmolality, Urine 439 mOsm/kg (50-1200)
== END 2020-08-07 07:01 | disposition home or self-care (01) ==
LOC: CHSLAB 07:02
PROVIDERS: PCP Internal Medicine; Visit Provider Internal Medicine
DX: E11.9 Type 2 diabetes mellitus without complications (principal); E87.1 Hypo-osmolality and hyponatremia
CPT/HCPCS: 36415; 80053; 83036; 83930; 83935; 85025

== ENCOUNTER 2021-03-02 15:58 | Emergency (ER) | payer MEDICARE, MEDICAID, SELFPAY ==
[2021-03-02 16:15] VITALS: BP 163/65; PULSE 92; RESP 18; TEMP 36.8; O2SAT 96
--- NOTE | 2021-03-02 16:21 | ED.DIZZY ---
HPI - Dizziness General Chief Complaint: Dizziness Stated Complaint: dizziness Time Seen by Provider: 03/02/21 16:21 Source: patient Mode of arrival: ambulatory Limitations: no limitations History of Present Illness HPI Narrative: 65-year-old woman with a history of hyponatremia comes in today complaining of dizziness. She states the dizziness is such that she feels unsteady but has no room spinning. It is like the dizziness she had when her sodium was low. She states that she is scheduled to get some lab tests this week but has not done it yet. She denies headache, nausea, vomiting, ear pain, cough or cold symptoms, chest pain, shortness of breath, abdominal pain, diarrhea, dysuria, hematuria, and black or bloody stools. she states she no longer takes hydrochlorothiazide. Patient states that she has had no difficulty navigating stairs as she walks her dog every day. She states that she feels off balance she has a walker at home, but has not been using it. MD elicited complaint: dizziness Pertinent past history: other ( Hyponatremia) Onset (ago): week(s) (1) Timing: gradual onset Severity: mild Description: off-balance History of similar symptoms: Yes Exacerbating factors: standing Relieving factors: nothing Associated symptoms: denies other symptoms Related Data Home Medications Medication Instructions Recorded Confirmed Novolin 70/30 U-100 Insulin 70 unit SUBCUT BID 12/30/19 03/02/21 atorvastatin 40 mg PO DAILY 12/30/19 03/02/21 metoprolol succinate [Toprol XL] 100 mg PO DAILY 12/30/19 03/02/21 Women's Multivitamin Gummies 1 tablet PO DAILY 07/18/20 03/02/21 aspirin [Aspirin Childrens] 81 mg PO DAILY 07/18/20 03/02/21 nifedipine [Adalat CC] 30 mg PO DAILY 07/18/20 03/02/21 omega 7-fmb-tam-fish oil [Fish Oil] 1 cap PO DAILY 07/18/20 03/02/21 Allergies Allergy/AdvReac Type Severity Reaction Status Date / Time cephalexin [Keflex] Allergy Intermediate Hives Verified 08/02/20 21:10 Review of Systems Constitutional: Constitutional: Denies chills, Denies fever(s) and Denies weakness Eyes: Eyes: Denies change in vision and Denies photophobia ENT: Denies nasal congestion and Denies sore throat Cardiovascular: Cardiovascular: Denies chest pain and Denies radiating jaw, neck or arm pain Respiratory: Respiratory: Denies cough, Denies dyspnea and Denies wheezing Gastrointestinal: Gastrointestinal: Denies abdominal pain, Denies diarrhea, Denies nausea and Denies vomiting Genitourinary: Genitourinary: Denies nocturia and Denies dysuria Musculoskeletal: Musculoskeletal: Denies back pain, Denies arthralgias and Denies joint swelling Integumentary/Breasts: Skin/Breast: Denies pruritus, Denies erythema and Denies rash Neurologic: Reports as per HPI, Denies confusion, Denies vertigo, Reports dizziness, Denies syncope, Denies headache(s), Denies numbness and Denies weakness Hematologic/Lymphatic: Hematologic/Lymphatic: Denies easy bleeding and Denies easy bruising Allergic/Immunologic: Allergic/Immunologic: Denies lip swelling and Denies throat swelling PMFSH Past Medical History Medical History (Updated 03/02/21 @ 17:06 by Bubba Felix MD) Coronary artery disease Diabetes mellitus Hyperlipidemia Hypertension Hyponatremia Surgical History Surgical History History of appendectomy S/P coronary artery stent placement x2 Family History Family History Other Family history of coronary artery disease Social History Social History Smoking status: Never smoker Substance use: never Gender identity (if verbalized by the patient): Female Spiritual care concerns: No Exam Const: General: healthy appearing, no acute distress and alert Orientation/consciousness: patient oriented x3 Limitations: no limitations HENMT: Head: normal to
--- NOTE | 2021-03-02 16:25 | ECG_ITS ---
Measurements Intervals [place] Rate: 89 P: 53 [place]: 143 QRS: 51 QRSD: 81 T: 87 QT: 331 QTc: 403 Interpretive Statements SINUS RHYTHM BORDERLINE ST-T WAVE ABNORMALITY- HIGH LATERAL LEADS BASELINE ARTIFACT- I, II, V2 BORDERLINE ECG Electronically Signed On 03-02-2021 16:49:10 CDT by Ricki Torrez D.O.
[2021-03-02 16:41] LABS: Add Urine Microscopic? YES; Appearance Urine Clear (Clear); Bilirubin Urine Negative (Negative); Blood Urine Negative (Negative); Color Urine Yellow (Yellow); Glucose Urine UA 1+ (Negative); Ketones Urine Negative (Negative); Leukocyte Esterase Ur Negative LEU/UL (Negative); Nitrate Urine Negative (Negative); Protein Urine Negative (Negative); Specific Grav Ur <= 1.005 (1.010-1.020); Urobilinogen Urine 0.2 mg/dL (0.2-1.0); pH Urine 5.5 (5.0-8.0)
[2021-03-02 16:41] LABS: Basophils Absolute Auto 0.07 K/mm3 (0.00-0.10); Basophils Percent Auto 0.7 % (0.0-1.0); Eosinophils Absolute Auto 0.23 K/mm3 (0.02-0.50); Eosinophils Percent Auto 2.4 % (1.0-6.0); Hematocrit 39.9 % (35.0-42.0); Hemoglobin 13.7 g/dL (11.7-13.8); Immature Granulocyte Absolute 0.05 K/mm3 (0.00-0.00); Immature Granulocyte Percent A 0.5 % (0.0-0.0); Lymphocytes Absolute Auto 3.27 K/mm3 (1.10-4.50); Lymphocytes Percent Auto 34.6 % (18.0-42.0); Mean Corpuscular HGB Conc 34.3 g/dL (32.0-36.0); Mean Corpuscular Hemoglobin 31.4 pg (27.0-31.0); Mean Corpuscular Volume 91.5 fL (78.0-102.0); Mean Platelet Volume 9.9 fl (9.2-11.8); Monocytes Absolute Auto 0.53 K/mm3 (0.10-0.90); Monocytes Percent Auto 5.6 % (2.0-11.0); Neutrophils Absolute Auto 5.3 K/mm3 (1.7-7.2); Neutrophils Percent Auto 56.2 % (50.0-70.0); Platelet Count Result 220 K/mm3 (150-420); Red Blood Count 4.36 M/mm3 (4.20-5.40); Red Cell Distribution Width 12.7 % (11.6-14.4); White Blood Count 9.4 K/mm3 (4.8-10.8)
[2021-03-02 16:46] LABS: Bacteria Urine None seen /hpf; RBC Urine 0-2 /hpf (0-2); Squamous Epithelial Cell Urine Few /hpf (Few); WBC Urine 0-3 /hpf (0-3)
[2021-03-02 16:58] LABS: Alanine Aminotransferase 30 U/L (14-59); Albumin Level 3.7 g/dL (3.4-5.0); Alkaline Phosphatase 90 U/L (46-116); Anion Gap 12 mmol/L (8-16); Aspartate Amino Transferase 13 U/L (15-37); Bilirubin,Total 0.7 mg/dL (0.00-1.00); Blood Urea Nitrogen 16 mg/dL (7-18); Calcium 9.8 mg/dL (8.5-10.1); Carbon Dioxide 26 mmol/L (21-32); Chloride 99 mmol/L (98-108); Estimated CRCL calculation 45 ml/min; Estimated Glomerular Filt Rate 57; Glucose 262 mg/dL (70-99); Magnesium 1.9 mg/dL (1.8-2.4); Osmolality Calculated 294 mOsm/kg (285-295); Potassium 4.5 mmol/L (3.5-5.1); Sodium 137 mmol/L (136-145)
[2021-03-02 16:59] LABS: Troponin I < 4.0 ng/L (0.00-60.4)
[2021-03-02 17:13] VITALS: BP 144/68; PULSE 86; RESP 16
== END 2021-03-02 17:15 | disposition home or self-care (01) ==
PROVIDERS: Emergency Provider Emergency Medicine; PCP Internal Medicine
DX: R42 Dizziness and giddiness (principal)
CPT/HCPCS: 36415; 80053; 81001; 83735; 84484; 85025; 93005; 99283; 99284

== ENCOUNTER 2021-06-08 10:34 | Outpatient (CLI) | payer MEDICARE, MEDICAID, SELFPAY ==
[2021-06-08 10:50] LABS: Basophils Absolute Auto 0.07 K/mm3 (0.00-0.10); Basophils Percent Auto 0.8 % (0.0-1.0); Eosinophils Absolute Auto 0.14 K/mm3 (0.02-0.50); Eosinophils Percent Auto 1.6 % (1.0-6.0); Hematocrit 41.7 % (35.0-42.0); Hemoglobin 14.2 g/dL (11.7-13.8); Immature Granulocyte Absolute 0.04 K/mm3 (0.00-0.00); Immature Granulocyte Percent A 0.4 % (0.0-0.0); Lymphocytes Absolute Auto 3.07 K/mm3 (1.10-4.50); Lymphocytes Percent Auto 34.1 % (18.0-42.0); Mean Corpuscular HGB Conc 34.1 g/dL (32.0-36.0); Mean Corpuscular Hemoglobin 31.5 pg (27.0-31.0); Mean Corpuscular Volume 92.5 fL (78.0-102.0); Mean Platelet Volume 9.2 fl (9.2-11.8); Monocytes Absolute Auto 0.53 K/mm3 (0.10-0.90); Monocytes Percent Auto 5.9 % (2.0-11.0); Neutrophils Absolute Auto 5.2 K/mm3 (1.7-7.2); Neutrophils Percent Auto 57.2 % (50.0-70.0); Platelet Count Result 236 K/mm3 (150-420); Red Blood Count 4.51 M/mm3 (4.20-5.40); Red Cell Distribution Width 12.7 % (11.6-14.4)
[2021-06-08 11:07] LABS: Alanine Aminotransferase 35 U/L (14-59); Albumin Level 3.9 g/dL (3.4-5.0); Alkaline Phosphatase 83 U/L (46-116); Anion Gap 11 mmol/L (8-16); Aspartate Amino Transferase 14 U/L (15-37); Bilirubin,Total 0.7 mg/dL (0.00-1.00); Blood Urea Nitrogen 13 mg/dL (7-18); CRP < 0.2 mg/dL (0.0-0.9); Calcium 9.8 mg/dL (8.5-10.1); Carbon Dioxide 28 mmol/L (21-32); Chloride 100 mmol/L (98-108); Estimated Glomerular Filt Rate 60; Glucose 259 mg/dL (70-99); Osmolality Calculated 297 mOsm/kg (285-295); Potassium 4.5 mmol/L (3.5-5.1); Sodium 139 mmol/L (136-145); Total Protein 8.2 g/dL (6.4-8.2)
[2021-06-08 14:36] LABS: Uric Acid 4.1 mg/dL (2.6-6.0)
== END 2021-06-08 10:35 | disposition home or self-care (01) ==
LOC: CHSLAB 10:37
PROVIDERS: PCP Internal Medicine; Visit Provider Nurse Practitioner Family
DX: M79.605 Pain in left leg (principal)
CPT/HCPCS: 36415; 80053; 83735; 84550; 85025; 85380; 86140

== ENCOUNTER 2021-07-27 10:50 | Outpatient (CLI) | payer MEDICARE, MEDICAID, SELFPAY ==
[2021-07-27 12:33] LABS: SARS-CoV-2 RNA PCR Negative (Negative)
== END 2021-07-27 10:51 | disposition home or self-care (01) ==
LOC: CHSLAB 10:52
PROVIDERS: PCP Internal Medicine; Visit Provider Internal Medicine
DX: Z20.822 Contact with and (suspected) exposure to COVID-19 (principal)
CPT/HCPCS: C9803; U0003; U0005

== ENCOUNTER 2021-07-28 22:08 | Emergency (ER) | payer MEDICARE, MEDICAID, SELFPAY ==
[2021-07-28 22:20] VITALS: BP 202/83; PULSE 103; RESP 20; TEMP 36.6; O2SAT 99
--- NOTE | 2021-07-28 22:21 | ECG_ITS ---
Measurements Intervals [place] Rate: 103 P: 49 MD: 135 QRS: 46 QRSD: 90 T: 88 QT: 320 QTc: 419 Interpretive Statements SINUS TACHYCARDIA BORDERLINE ST-T WAVE ABNORMALITY- HIGH LATERAL LEADS BASELINE ARTIFACT- I, II, III, AVR, AVL, AVF BORDERLINE ECG Electronically Signed On 07-30-2021 7:50:06 CDT by Ricki Torrez D.O.
--- NOTE | 2021-07-28 22:44 | ED.HA ---
HPI - Headache General Chief Complaint: Unspecified Stated Complaint: bp high,heart rate high Source: patient Mode of arrival: ambulatory Limitations: no limitations History of Present Illness HPI Narrative: this is a 66-year-old female presents with a a mild throbbing like headache after she took her blood pressure at home and found that she had a blood pressure reading that was high with elevated heart rate. Patient denies any chest pain no shortness of breath no nausea vomiting no abdominal plain no blurry vision headache is a mild throbbing that started gradually with no dysuria no flank pain. The patient has a history of hypertension recently saw her primary care physician. MD elicited complaint: headache Onset description: gradually Severity: mild Exacerbating factors: none Relieving factors: nothing Context: occurred at rest Related Data Home Medications Medication Instructions Recorded Confirmed Novolin 70/30 U-100 Insulin 70 unit SUBCUT BID 12/30/19 03/02/21 atorvastatin 40 mg PO DAILY 12/30/19 03/02/21 metoprolol succinate [Toprol XL] 100 mg PO DAILY 12/30/19 03/02/21 Women's Multivitamin Gummies 1 tablet PO DAILY 07/18/20 03/02/21 aspirin [Aspirin Childrens] 81 mg PO DAILY 07/18/20 03/02/21 nifedipine [Adalat CC] 30 mg PO DAILY 07/18/20 03/02/21 omega 8-qet-dql-fish oil [Fish Oil] 1 cap PO DAILY 07/18/20 03/02/21 Allergies Allergy/AdvReac Type Severity Reaction Status Date / Time cephalexin [Keflex] Allergy Intermediate Hives Verified 08/02/20 21:10 Review of Systems Review of Systems: All systems reviewed & are unremarkable except as noted in HPI and below PMFSH Past Medical History Medical History Coronary artery disease Diabetes mellitus Hyperlipidemia Hypertension Hyponatremia Surgical History Surgical History History of appendectomy S/P coronary artery stent placement x2 Family History Family History Other Family history of coronary artery disease Social History Social History Smoking status: Never smoker Alcohol use details: rare Substance use: never Gender identity (if verbalized by the patient): Female Spiritual care concerns: No Exam Const: General: no acute distress Orientation/consciousness: patient oriented x3 HENMT: Head: normal to inspection and contusion Eyes: Conjunctivae: conjunctivae normal Pupils: Equal, round and reactive pupils present Neck: Neck: normal visual inspection, no lymphadenopathy and no meningeal signs Chest: Chest palpation & inspection: normal inspection of the chest Resp: Effort & Inspection: normal respiratory effort Cardio: Rate: regular rate Rhythm: regular rhythm GI: GI Palp: Yes Soft to palpation : General: Yes no CVA tenderness Urinary Catheter: Urinary Catheter: patent and draining and urine clear Neuro: General: patient oriented x3, moves all extremities, no meningeal signs and no focal motor deficits Psych: Appearance: grossly normal Mental Status: mental status grossly normal Affect: normal affect Course Course Emergency Course: Labs and EKG reviewed with patient blood pressure has improved and will give the patient a dose of Lopressor. Reassessment of blood pressure has improved along with improvement of her heart rate Critical Care Time Critical Care Time Critical Care Time: No Discharge Plan Discharge Clinical Impression: Hypertension Qualifiers: Hypertension type: primary hypertension Qualified Code(s): I10 - Essential (primary) hypertension Patient Disposition: Home, Self-Care Condition: Stable Instructions: Antibiotic Form Additional Instructions: Take medicine as prescribed and follow-up with primary care physician within 1 week further evaluation and raza
[2021-07-28 23:10] LABS: Alanine Aminotransferase 33 U/L (14-59); Albumin Level 3.6 g/dL (3.4-5.0); Alkaline Phosphatase 88 U/L (46-116); Anion Gap 12 mmol/L (8-16); Aspartate Amino Transferase 16 U/L (15-37); Bilirubin,Total 0.7 mg/dL (0.00-1.00); Blood Urea Nitrogen 16 mg/dL (7-18); Calcium 9.3 mg/dL (8.5-10.1); Carbon Dioxide 25 mmol/L (21-32); Chloride 100 mmol/L (98-108); Estimated Glomerular Filt Rate > 60; Glucose 135 mg/dL (70-99); Osmolality Calculated 287 mOsm/kg (285-295); Potassium 3.8 mmol/L (3.5-5.1); Sodium 137 mmol/L (136-145); Total Protein 7.9 g/dL (6.4-8.2)
[2021-07-28 23:20] VITALS: PULSE 100
[2021-07-28] MEDS: METOPROLOL TARTRATE 50 MG TAB PO (23:20)
[2021-07-28 23:26] VITALS: PULSE 100
[2021-07-28 23:27] VITALS: BP 155/66; PULSE 90; RESP 20; TEMP 36.6; O2SAT 96
== END 2021-07-28 23:33 | disposition home or self-care (01) ==
PROVIDERS: Emergency Provider Emergency Medicine; PCP Internal Medicine
DX: I10 Essential (primary) hypertension (principal); I25.10 Atherosclerotic heart disease of native coronary artery without angina pectoris; E11.9 Type 2 diabetes mellitus without complications; E78.5 Hyperlipidemia, unspecified
CPT/HCPCS: 36415; 80053; 93005; 99282; 99283; A9270

== ENCOUNTER 2021-12-04 06:58 | Outpatient (CLI) | payer MEDICARE, MEDICAID, SELFPAY ==
[2021-12-04 09:12] LABS: SARS-CoV-2 RNA PCR Negative (Negative)
== END 2021-12-04 06:59 | disposition home or self-care (01) ==
PROVIDERS: PCP Internal Medicine; Visit Provider Internal Medicine
DX: J06.9 Acute upper respiratory infection, unspecified (principal); Z20.822 Contact with and (suspected) exposure to COVID-19
CPT/HCPCS: C9803; U0003; U0005

== ENCOUNTER 2022-01-02 19:29 | Emergency (ER) | payer MEDICARE, MEDICAID, SELFPAY ==
--- NOTE | ~2022-01-02 | XR_ITS ---
EXAMINATION: XR chest 1V portable Exam Date/Time: 01/02/2022 19:50 CDT CLINICAL HISTORY: chest tightness across center of chest today Comparison: 07/18/2020. RESULT: Lines, tubes, and devices: None. Lungs and pleura: Clear. Cardiomediastinal silhouette: Stable cardiomediastinal silhouette. Other: No acute osseous or upper abdominal finding. IMPRESSION: No acute cardiopulmonary process. Reviewed, dictated and finalized at [facility].
--- NOTE | 2022-01-02 19:38 | ECG_ITS ---
Measurements Intervals [place] Rate: 88 P: 54 [place]: 144 QRS: 48 QRSD: 86 T: 77 QT: 333 QTc: 404 Interpretive Statements SINUS RHYTHM COMPARED TO ECG 07/28/2021 22:51:14 THE PATIENT IS NO LONGER TACHYCARDIA Electronically Signed On 01-02-2022 21:23:44 CDT by Sujey Bella M.D.
--- NOTE | 2022-01-02 19:39 | ED.CHESTPAIN ---
HPI - Chest Pain General Chief Complaint: Chest Pain Stated Complaint: tightness in chest Time Seen by Provider: 01/02/22 19:40 History of Present Illness HPI narrative: 66-year-old female with positive history of coronary artery disease hypertension, dyslipidemia diabetes mellitus, coronary artery status post 2 stents in 2010, a recent negative stress test developed -- chest discomfort when she walked up a flight of stairs at 2:00 p.m. She took sublingual nitro with resolution of chest discomfort. Total duration of chest discomfort was 7 minutes. There was no radiation of the discomfort. No nausea vomiting. No shortness of breath. No lightheadedness. Subsequently the patient went out and walked her dog for 15 minutes without any recurrence of chest discomfort. She is presently pain-free. MD complaint: chest discomfort Pertinent past history: coronary artery disease Onset (ago): hour(s) ( Started 6 hours ago) Timing of current episode: other ( pain lasted 7 minutes with resolution with sublingual nitro) Prior episodes: No Onset: during exertion Pain location: left chest Pain radiation: none Severity: mild Quality: tightness Relieving factors: nitroglycerin Exacerbating factors: nothing Treatment prior to arrival: nitroglycerin Risk Factors Coronary artery disease risk factors: diabetes, hyperlipidemia and hypertension Thoracic aortic dissection risk factors: longstanding hypertension Related Data On Oral Contraceptives: No Home Medications Medication Instructions Recorded Confirmed Novolin 70/30 U-100 Insulin 70 unit SUBCUT BID 12/30/19 01/02/22 atorvastatin 40 mg PO DAILY 12/30/19 01/02/22 metoprolol succinate [Toprol XL] 100 mg PO DAILY 12/30/19 01/02/22 Women's Multivitamin Gummies 1 tablet PO DAILY 07/18/20 01/02/22 aspirin [Aspirin Childrens] 81 mg PO DAILY 07/18/20 01/02/22 nifedipine [Adalat CC] 30 mg PO DAILY 07/18/20 01/02/22 omega 0-bcd-tkg-fish oil [Fish Oil] 1 cap PO DAILY 07/18/20 01/02/22 Allergies Allergy/AdvReac Type Severity Reaction Status Date / Time cephalexin [Keflex] Allergy Intermediate Hives Verified 01/02/22 19:46 Review of Systems Review of Systems: All systems reviewed & are unremarkable except as noted in HPI and below Constitutional: Constitutional: Reports as per HPI and Reports no additional constitutional complaints Eyes: Eyes: Reports as per HPI and Reports no additional eye complaints ENT: Reports system reviewed and no additional complaints, except as documented and Reports as per HPI Cardiovascular: Cardiovascular: Reports as per HPI and Reports no additional cardiovascular complaints Comments: chest discomfort with exertion Respiratory: Respiratory: Reports as per HPI and Reports no additional respiratory complaints Gastrointestinal: Gastrointestinal: Reports as per HPI and Reports no additional gastrointestinal complaints Genitourinary: Genitourinary: Reports no additional female genitourinary complaints Musculoskeletal: Musculoskeletal: Reports no additional musculoskeletal complaints and Reports as per HPI Integumentary/Breasts: Skin/Breast: Reports system reviewed and no additional complaints, except as docu and Reports as per HPI Neurologic: Reports system reviewed and no additional complaints, except as documented and Reports as per HPI Psychiatric: Psychiatric: Reports no additional psychiatric complaints and Reports as per HPI Endocrine: Endocrine: Reports no additional endocrine complaints and Reports as per HPI Hematologic/Lymphatic: Hematologic/Lymphatic: Reports no additional hematologic/lymphatic complaints and Reports as per HPI Allergic/Immunologic: Allergic/Immunologic: Reports no additional allergic/immunologic complaints and Reports as per HPI [facility] Past Medical History Medical History Coronary artery disease Diabetes mellitus Hyperlipidemia Hypertension Hyponatremia Surgical History
[2022-01-02 19:42] VITALS: BP 168/58; PULSE 91; RESP 18; TEMP 36.9; O2SAT 98
[2022-01-02] MEDS: ASPIRIN 81 MG CHEWABLE TABLET 324 MG PO (19:54)
[2022-01-02 20:03] LABS: Basophils Absolute Auto 0.07 K/mm3 (0.00-0.10); Basophils Percent Auto 0.7 % (0.0-1.0); Eosinophils Absolute Auto 0.22 K/mm3 (0.02-0.50); Eosinophils Percent Auto 2.3 % (1.0-6.0); Hemoglobin 12.6 g/dL (11.7-13.8); Immature Granulocyte Absolute 0.05 K/mm3 (0.00-0.00); Immature Granulocyte Percent A 0.5 % (0.0-0.0); Lymphocytes Absolute Auto 3.22 K/mm3 (1.10-4.50); Lymphocytes Percent Auto 33.2 % (18.0-42.0); Mean Corpuscular HGB Conc 34.1 g/dL (32.0-36.0); Mean Corpuscular Hemoglobin 31.8 pg (27.0-31.0); Mean Corpuscular Volume 93.4 fL (78.0-102.0); Mean Platelet Volume 9.6 fl (9.2-11.8); Monocytes Absolute Auto 0.62 K/mm3 (0.10-0.90); Monocytes Percent Auto 6.4 % (2.0-11.0); Neutrophils Absolute Auto 5.5 K/mm3 (1.7-7.2); Neutrophils Percent Auto 56.9 % (50.0-70.0); Platelet Count Result 222 K/mm3 (150-420); Red Blood Count 3.96 M/mm3 (4.20-5.40); White Blood Count 9.7 K/mm3 (4.8-10.8)
[2022-01-02 20:20] LABS: Partial Thromboplastin Time 24.1 SEC (23.90-30.70); Prothrombin Time 10.3 Seconds (9.50-12.10)
[2022-01-02 20:21] LABS: Lactic Acid Reflex 1.5 mmol/L (0.4-2.0)
[2022-01-02 20:23] LABS: SARS-CoV-2 Ag Negative (Negative)
[2022-01-02 20:32] LABS: Alanine Aminotransferase 27 U/L (14-59); Albumin Level 3.6 g/dL (3.4-5.0); Alkaline Phosphatase 68 U/L (46-116); Anion Gap 10 mmol/L (8-16); Aspartate Amino Transferase 11 U/L (15-37); Bilirubin,Total 0.5 mg/dL (0.00-1.00); Blood Urea Nitrogen 20 mg/dL (7-18); Calcium 9.4 mg/dL (8.5-10.1); Carbon Dioxide 26 mmol/L (21-32); Chloride 102 mmol/L (98-108); Estimated CRCL calculation 48 ml/min; Estimated Glomerular Filt Rate 55; Glucose 182 mg/dL (70-99); NT Pro B Type Natriuretic Pept 242 pg/mL (0-125); Osmolality Calculated 293 mOsm/kg (285-295); Potassium 3.9 mmol/L (3.5-5.1); Sodium 138 mmol/L (136-145); Total Protein 7.8 g/dL (6.4-8.2)
[2022-01-02 20:34] LABS: Magnesium 1.9 mg/dL (1.8-2.4)
[2022-01-02 20:35] LABS: Troponin I 8.4 ng/L (0.00-60.4)
[2022-01-02 21:22] LABS: Add Urine Microscopic? YES; Appearance Urine Clear (Clear); Bilirubin Urine Negative (Negative); Blood Urine Negative (Negative); Color Urine Light Yellow (Yellow); Glucose Urine UA Negative (Negative); Ketones Urine Negative (Negative); Leukocyte Esterase Ur 2+ (Negative); Nitrate Urine Negative (Negative); Protein Urine Negative (Negative); Specific Grav Ur <= 1.005 (1.010-1.020); Urobilinogen Urine 0.2 mg/dL (0.2-1.0); pH Urine 6.5 (5.0-8.0)
[2022-01-02 21:28] LABS: Bacteria Urine Trace /hpf; RBC Urine 0-2 /hpf (0-2); Squamous Epithelial Cell Urine Few /hpf (Few)
--- NOTE | 2022-01-03 | ECG_ITS ---
Measurements Intervals [place] Rate: 82 P: 49 [place]: 142 QRS: 54 QRSD: 90 T: 72 QT: 341 QTc: 399 Interpretive Statements SINUS RHYTHM COMPARED TO ECG 01/02/2022 19:43:38 NO SIGNIFICANT CHANGES Electronically Signed On 01-03-2022 19:02:16 CDT by Sujey Bella M.D.
[2022-01-03 01:05] VITALS: BP 145/88; PULSE 82; RESP 16; TEMP 36.6; O2SAT 96
== END 2022-01-03 01:10 | disposition home or self-care (01) ==
PROVIDERS: Emergency Provider Internal Medicine Critical Care Medicine; PCP Internal Medicine
DX: I20.9 Angina pectoris, unspecified (principal); N39.0 Urinary tract infection, site not specified; E11.65 Type 2 diabetes mellitus with hyperglycemia; Z20.822 Contact with and (suspected) exposure to COVID-19; E78.5 Hyperlipidemia, unspecified; I10 Essential (primary) hypertension
CPT/HCPCS: 36415; 71045; 80053; 81001; 83605; 83735; 83880; 84484; 85025; 85610; 85730; 87426; 93005; 99284; A9270; C9803

== ENCOUNTER 2022-02-11 07:56 | Outpatient (CLI) | payer MEDICARE, MEDICAID, SELFPAY ==
[2022-02-11 08:20] LABS: Hemoglobin A1C 7.3 % (<5.7)
[2022-02-11 08:28] LABS: Alanine Aminotransferase 17 U/L (14-59); Albumin Level 3.4 g/dL (3.4-5.0); Alkaline Phosphatase 65 U/L (46-116); Anion Gap 8 mmol/L (8-16); Aspartate Amino Transferase 11 U/L (15-37); Bilirubin,Total 0.7 mg/dL (0.00-1.00); Blood Urea Nitrogen 19 mg/dL (7-18); Calcium 9.1 mg/dL (8.5-10.1); Carbon Dioxide 28 mmol/L (21-32); Chloride 103 mmol/L (98-108); Estimated Glomerular Filt Rate > 60; Glucose 185 mg/dL (70-99); Osmolality Calculated 295 mOsm/kg (285-295); Potassium 4.7 mmol/L (3.5-5.1); Sodium 139 mmol/L (136-145); Total Protein 7.6 g/dL (6.4-8.2)
[2022-02-11 08:32] LABS: Creatinine Urine 54.57 mg/dL (40-278); MALB Creatinine Ratio 99.1 mg/g (0-30); Microalbumin Urine Random 54.1 mg/L
== END 2022-02-11 07:57 | disposition home or self-care (01) ==
LOC: CHSLAB 07:59
PROVIDERS: PCP Internal Medicine; Visit Provider Internal Medicine
DX: E11.9 Type 2 diabetes mellitus without complications (principal); I10 Essential (primary) hypertension
CPT/HCPCS: 36415; 80053; 82043; 83036

== ENCOUNTER 2022-04-04 10:32 | Emergency (ER) | payer MEDICARE, MEDICAID, SELFPAY ==
[2022-04-04 10:38] VITALS: BP 149/60; PULSE 86; RESP 18; TEMP 36.7; O2SAT 98
[2022-04-04 11:31] LABS: SARS-CoV-2 RNA PCR Positive (Negative)
--- NOTE | 2022-04-04 11:36 | ED.GENADULT ---
HPI - General Adult General Chief complaint: Upper Respiratory Infection Stated complaint: THROAT PAIN COUGH Source: patient Mode of arrival: ambulatory Limitations: no limitations History of Present Illness HPI narrative: This is a 66-year-old female who presents with cough and sore throat with no shortness of breath no fever chills no chest pain no abdominal pain no diarrhea constipation, the patient is not vaccinated for COVID and started developing cough with sore throat over the last 2 days. Onset (ago): day(s) Severity: mild Related Data Home Medications Medication Instructions Recorded Confirmed atorvastatin 40 mg tablet 40 mg PO DAILY 12/30/19 01/02/22 insulin human U-100 NPH-regulr 70 unit subcut BID 12/30/19 01/02/22 70-30 mix 100 unit/mL subcutaneous susp (Novolin 70/30 U-100 Insulin) metoprolol succinate 50 mg 100 mg PO DAILY 12/30/19 01/02/22 tablet,extended release 24 hr (Toprol XL) aspirin 81 mg chewable tablet 81 mg PO DAILY 07/18/20 01/02/22 (Aspirin Childrens) multivitamin with minerals-folic 1 tablet PO DAILY 07/18/20 01/02/22 acid 200 mcg chewable tablet (Women's Multivitamin Gummies) nifedipine 30 mg tablet,extended 30 mg PO DAILY 07/18/20 01/02/22 release (Adalat CC) omega 6-zxp-aqx-fish oil 1,000 mg 1 cap PO DAILY 07/18/20 01/02/22 (120 mg-180 mg) capsule (Fish Oil) insulin human U-100 NPH-regulr 80 unit subcut HS 04/04/22 04/04/22 70-30 mix 100 unit/mL subcutaneous susp (Humulin 70/30 U-100 Insulin) metoprolol succinate 100 mg 100 tablet PO HS 04/04/22 04/04/22 tablet,extended release 24 hr Allergies Allergy/AdvReac Type Severity Reaction Status Date / Time cephalexin [Keflex] Allergy Intermediate Hives Verified 04/04/22 11:11 Review of Systems Review of Systems: All systems reviewed & are unremarkable except as noted in HPI and below PMFSH Past Medical History Medical History Coronary artery disease Diabetes mellitus Hyperlipidemia Hypertension Hyponatremia Surgical History Surgical History History of appendectomy S/P coronary artery stent placement x2 Family History Family History Other Family history of coronary artery disease Social History Social History Smoking status: Never smoker Alcohol use details: rare Substance use: never Gender identity (if verbalized by the patient): Female Spiritual care concerns: No Exam Const: General: healthy appearing Nutritional Appearance: well nourished HENMT: Head: normal to inspection General nose exam: Normal external nose present Face and sinus: normal facial exam Eyes: Conjunctivae: conjunctivae normal Neck: Neck: normal visual inspection, no lymphadenopathy and no meningeal signs Chest: Chest palpation & inspection: normal inspection of the chest Resp: Effort & Inspection: normal respiratory effort Auscultation: clear to auscultation bilaterally Cardio: Rate: regular rate Rhythm: regular rhythm GI: GI Palp: Yes Soft to palpation Auscultation: normal bowel sounds : General: Yes bladder normal to palpation Skin: General skin exam: normal color Rashes: no rashes Wounds: no wounds Neuro: General: patient oriented x3, moves all extremities and no meningeal signs Extrem: General: normal to inspection Psych: Mental Status: mental status grossly normal Affect: normal affect Course Course Emergency Course: Patient is positive for COVID and will be sending medication to her pharmacy. Vital Signs Vital signs: Vital Signs Temperature 36.7 C 04/04/22 10:38 Pulse Rate 86 04/04/22 10:38 Respiratory Rate 18 04/04/22 10:38 Blood Pressure 149/60 H 04/04/22 10:38 Pulse Oximetry 98 04/04/22 10:38 Oxygen Delivery Room Air 0
[2022-04-04 11:42] VITALS: BP 135/64; PULSE 86; RESP 18; TEMP 36.9; O2SAT 98
== END 2022-04-04 11:45 | disposition home or self-care (01) ==
PROVIDERS: Emergency Provider Emergency Medicine; PCP Internal Medicine
DX: U07.1 COVID-19 (principal); I25.10 Atherosclerotic heart disease of native coronary artery without angina pectoris; E11.9 Type 2 diabetes mellitus without complications; E78.5 Hyperlipidemia, unspecified; I10 Essential (primary) hypertension
CPT/HCPCS: 87081; 87880; 99283; C9803; U0003; U0005

== ENCOUNTER 2022-04-05 19:23 | Inpatient (IN) | payer MEDICARE, MEDICAID, SELFPAY ==
[2022-04-05] VITALS (7 sets, daily range): BP systolic 110–139; BP diastolic 50–83; PULSE 80–95; RESP 16–20; TEMP 36.4–36.6; O2SAT 90–97; BMI 31.0
--- NOTE | ~2022-04-05 | CT_ITS ---
EXAMINATION: CT diagnostic chest wo con DATE: 04/05/2022 20:01 INDICATION: Shortness of breath, cough. The lungs TECHNIQUE: Computed tomography (CT) of the chest was performed without intravenous contrast. Automate d exposure control and iterative reconstruction technique were employed. Exam dose: 313.99 mGy-cm to sienna exam DLP. COMPARISON: None FINDINGS: Mild bilateral pleural effusions. There is mild involvement of the left upper lobe, lingula. There are more prominent bilateral lower l obe dependent pulmonary infiltrates and/or atelectasis. Mild bilateral mediastinal lymph node prominence, likely reactive. Mild cardiomegaly. Trace pericardial fluid. Coronary artery calcifications. Line aortic and great ves rocky calcification. No thoracic aortic aneurysm. Normal morphology of the adrenal glands. Numerous small stones are noted in the gallbladder. No gallbladder wall thickening or pericholecystic fluid or fat stranding is evident. Prominent degenerative disc disease in the lower cervical spine. 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 No suspicious osteolytic or osteoblastic lesions are noted. IMPRESSION: Bilateral pulmonary infiltrates, mild in the left upper lobe and lingula, more prominent in the dependent lower lobes Mild pleural effusions, cardiomegaly. Mild congestive heart failure is suspected Aortic and coronary atherosclerosis Reviewed, dictated and finalized at [facility]. Reviewed, dictated and finalized at location [facility]. IMPRESSION: Bilateral pulmonary infiltrates, mild in the left upper lobe and l ingula, more prominent in the dependent lower lobes Mild pleural effusions, cardiomegaly. Mild congestive heart failure is suspecte d Aortic and coronary atherosclerosis
[2022-04-05 20:13] LABS: Basophils Absolute Auto 0.03 K/mm3 (0.00-0.10); Basophils Percent Auto 0.2 % (0.0-1.0); Hematocrit 30.3 % (35.0-42.0); Hemoglobin 10.9 g/dL (11.7-13.8); Immature Granulocyte Absolute 0.12 K/mm3 (0.00-0.00); Immature Granulocyte Percent A 0.6 % (0.0-0.0); Lymphocytes Percent Auto 7.3 % (18.0-42.0); Mean Corpuscular Hemoglobin 31.6 pg (27.0-31.0); Mean Corpuscular Volume 87.8 fL (78.0-102.0); Monocytes Absolute Auto 0.97 K/mm3 (0.10-0.90); Neutrophils Absolute Auto 16.7 K/mm3 (1.7-7.2); Neutrophils Percent Auto 86.9 % (50.0-70.0); Platelet Count Result 246 K/mm3 (150-420); Red Blood Count 3.45 M/mm3 (4.20-5.40); Red Cell Distribution Width 12.2 % (11.6-14.4); White Blood Count 19.2 K/mm3 (4.8-10.8)
[2022-04-05 20:15] LABS: Alveolar/Arterial O2 Gradient 39.8 mmHg; Base Excess ABG -4.8 mmol/L (0-2); Fractional Inspired Oxygen 21 %; HCO3 ABG 19.4 mmol/L (23-29); Oxygen Content ABG 15.8 %vol (16.0-22.0); Oxygen Saturation ABG 92.8 % (95-97); Oxyhemoglobin 92.7 % (94-100); PCO2 ABG 33.1 mmHg (35-45); PO2 ABG 70.3 mmHg (75-85); PO2 FiO2 Ratio Arterial Blood 3.35 %; Total Hemoglobin 12.1 g/dL (12.0-18.0); pH ABG 7.39 (7.35-7.45)
[2022-04-05 20:16] LABS: Device ROOM AIR; Modified Allen's Test Pass; Site Drawn RIGHT RADIAL
[2022-04-05] MEDS: methylPREDNISolone SOD SUCC 125 MG VIAL IV PUSH (20:27)
[2022-04-05 20:32] LABS: Alanine Aminotransferase 23 U/L (14-59); Albumin Level 2.8 g/dL (3.4-5.0); Alkaline Phosphatase 72 U/L (46-116); Anion Gap 14 mmol/L (8-16); Aspartate Amino Transferase 25 U/L (15-37); Blood Urea Nitrogen 36 mg/dL (7-18); Calcium 9.6 mg/dL (8.5-10.1); Carbon Dioxide 19 mmol/L (21-32); Chloride 82 mmol/L (98-108); Estimated Glomerular Filt Rate 35; Osmolality Calculated 269 mOsm/kg (285-295); Potassium 5.1 mmol/L (3.5-5.1); Total Protein 7.1 g/dL (6.4-8.2)
[2022-04-05 20:35] LABS: Lactic Acid Reflex 7.8 mmol/L (0.4-2.0)
--- NOTE | 2022-04-05 20:37 | PC.NURSE ---
pt refused strep and pcr swab
[2022-04-05 20:39] LABS: Sodium 115 mmol/L (136-145)
[2022-04-05 20:40] LABS: Glucose 483 mg/dL (70-99)
[2022-04-05] MEDS: UMECLIDINIUM BROMIDE 62.5 MCG ELLIPTA 1 PUFF INHALATION ×2 (20:43→21:21)
[2022-04-05] MEDS: ALBUTEROL SULFATE (*SP) INHALER 2 PUFF INHALATION (20:43)
[2022-04-05] MEDS: SODIUM CHLORIDE 0.9% IV 1,000 ML 999 ML IV CONT (21:09)
[2022-04-05] MEDS: FUROSEMIDE INJ 100 MG/10 ML VIAL 80 MG IV PUSH (21:10)
[2022-04-05] MEDS: AZITHROMYCIN 250 MG TABLET 500 MG PO (21:10)
[2022-04-05] MEDS: INSULIN HUMAN REGULAR (*BKC) 100 UNITS/ML 8 UNITS IV PUSH (21:21)
--- NOTE | 2022-04-05 22:11 | ED.WEAKNESS ---
HPI - Weakness General Chief complaint: Weakness Stated complaint: COVID+,Dehydrated Time Seen by Provider: 04/05/22 19:27 Source: patient and RN notes reviewed Mode of arrival: ambulatory Limitations: no limitations History of Present Illness HPI Narrative: Virus + patient on Paxlovid x 1 day. now very weak, SOB/wheezing and mild episodic vomiting. MD Complaint: generalized weakness and lack of energy Onset (ago): hour(s) (12) Duration: progressively worsening Location: generalized Migration: none Severity: mild Severity scale (1-10): 8 Quality: other (no acute chest pain) Relieving factors: none Exacerbating factors: none Associated symptoms: nausea/vomiting, myalgias and shortness of breath Related Data Home Medications Medication Instructions Recorded Confirmed atorvastatin 40 mg tablet 40 mg PO DAILY 12/30/19 04/05/22 insulin human U-100 NPH-regulr 75 unit subcut QACBREAK 12/30/19 04/05/22 70-30 mix 100 unit/mL subcutaneous susp (Novolin 70/30 U-100 Insulin) metoprolol succinate 50 mg 50 mg PO DAILY 12/30/19 04/05/22 tablet,extended release 24 hr (Toprol XL) aspirin 81 mg chewable tablet 81 mg PO DAILY 07/18/20 04/05/22 (Aspirin Childrens) multivitamin with minerals-folic 1 tablet PO DAILY 07/18/20 04/05/22 acid 200 mcg chewable tablet (Women's Multivitamin Gummies) nifedipine 30 mg tablet,extended 60 mg PO DAILY 07/18/20 04/05/22 release (Adalat CC) omega 9-bfq-yxq-fish oil 1,000 mg 1 cap PO DAILY 07/18/20 04/05/22 (120 mg-180 mg) capsule (Fish Oil) insulin human U-100 NPH-regulr 80 unit subcut HS 04/04/22 04/05/22 70-30 mix 100 unit/mL subcutaneous susp (Humulin 70/30 U-100 Insulin) metoprolol succinate 100 mg 100 tablet PO HS 04/04/22 04/05/22 tablet,extended release 24 hr Allergies Allergy/AdvReac Type Severity Reaction Status Date / Time cephalexin [Keflex] Allergy Intermediate Hives Verified 04/05/22 19:41 Review of Systems Review of Systems: All systems reviewed & are unremarkable except as noted in HPI and below Constitutional: Constitutional: Reports no additional constitutional complaints Eyes: Eyes: Reports no additional eye complaints ENT: Reports system reviewed and no additional complaints, except as documented Cardiovascular: Cardiovascular: Reports no additional cardiovascular complaints Respiratory: Respiratory: Reports dyspnea Gastrointestinal: Gastrointestinal: Reports no additional gastrointestinal complaints Genitourinary: Genitourinary: Reports no additional female genitourinary complaints Musculoskeletal: Musculoskeletal: Reports no additional musculoskeletal complaints Integumentary/Breasts: Skin/Breast: Reports system reviewed and no additional complaints, except as docu Neurologic: Reports system reviewed and no additional complaints, except as documented Psychiatric: Psychiatric: Reports no additional psychiatric complaints Endocrine: Endocrine: Reports no additional endocrine complaints Hematologic/Lymphatic: Hematologic/Lymphatic: Reports no additional hematologic/lymphatic complaints Allergic/Immunologic: Allergic/Immunologic: Reports no additional allergic/immunologic complaints PMFSH Past Medical History Medical History Coronary artery disease COVID-19 Diabetes mellitus Hyperlipidemia Hypertension Hyponatremia Non-STEMI (non-ST elevated myocardial infarction) Pneumonia Surgical History Surgical History History of appendectomy S/P coronary artery stent placement x2 Family History Family History Other Family history of coronary artery disease Social History Social History Smoking status: Never smoker Alcohol use details: rare Substance use: never Gender identity (if verbalized by the
--- NOTE | 2022-04-05 22:18 | ECG_ITS ---
Measurements Intervals [place] Rate: 77 P: 55 [place]: 155 QRS: 66 QRSD: 96 T: 85 QT: 356 QTc: 405 Interpretive Statements SINUS RHYTHM ST-T WAVE ABNORMALITY IN HIGH LATERAL LEADS- CONSIDER ISCHEMIA BASELINE ARTIFACT- I, III, AVR, AVL, V5 ABNORMAL ECG Electronically Signed On 04-06-2022 7:22:42 CDT by Ricki Torrez D.O.
--- NOTE | 2022-04-05 22:45 | PC.NURSE ---
pt admitted with 0.9 NS 1000ml still infusing
[2022-04-05 23:02] LABS: Reflex Lactic Acid Yes or No Add Lactic
[2022-04-05 23:19] LABS: Prothrombin Time 10.9 Seconds (9.50-12.10)
[2022-04-05 23:27] LABS: Lactic Acid 5.4 mmol/L (0.4-2.0)
[2022-04-05 23:28] LABS: NT Pro B Type Natriuretic Pept 2519 pg/mL (0-125)
[2022-04-05 23:30] LABS: Alanine Aminotransferase 25 U/L (14-59); Estimated Glomerular Filt Rate 40
[2022-04-06] VITALS: BP 145/68; PULSE 74; PULSE 78; RESP 20; TEMP 36
--- NOTE | 2022-04-06 00:06 | PC.NURSE ---
Sandra in lab called with critical troponin for patient. Result 2235.2. Dr. Antonio notified of result, then Napoleon Ventura notified of result. Dr. Antonio to call tile helper.
--- NOTE | 2022-04-06 00:08 | ADMGEN ---
This patient, Sujata Prakash, was admitted to 2nd Floor Room 210-2. Patient oriented to hospital policies and general routines including ID bracelet, bed and alarms, visiting hours, pain management, procedures, bathroom and other care routines, personal items, smoking policy, room service/diet, and visiting hours. Information on how to activate the Rapid Response Team has been discussed. Patient are encouraged to report perceived risks to care and to ask questions if they do not understand what they are told or what they should do. Patient stood and transferred from ER stretcher to bed without assistance with steady gait. Respirations even and unlabored. Denies SOB. Denies pain. Alert and oriented x4. IV NS infusing to site in LAC without difficulty. No distress noted. Call light in reach
--- NOTE | 2022-04-06 00:09 | PM.EVENT ---
Event Note Event Note Event Note: Received a phone call from nurse who called me about a Trop that was ordered in the emergency room prior to bringing pt to the floor. Trop result are critical 2235.5 . Informed nurse to call and discuss with emergency room MD Antonio. I did call myself and spoke with Dr. Antonio about elevated Trop and the needed to get a hold of cardiology for patient who is having a Non STEMI that is positive for COVID-19, hyponatremic . Patient is in need of possible transfer at this time as she needs higher acuity of care .
[2022-04-06 00:16] LABS: Glucose Point of Care > 450 mg/dl (65-105)
--- NOTE | 2022-04-06 00:18 | PC.NURSE ---
Manfred Ventura, MICROBIOLOGY ANALYST/Hospitalist notified that patient's blood sugar is 493.
[2022-04-06] MEDS: REMDESIVIR 200 MG/NS 250 ML 200 MG/250 ML BAG 250 MG IVPB (00:37)
[2022-04-06] MEDS: WATER, STERILE FOR INJECTION 10 ML VIAL 20 ML XX (00:37)
[2022-04-06] MEDS: SODIUM CHLORIDE 0.9% IV 1,000 ML 75 ML IV CONT (00:38)
[2022-04-06] MEDS: ENOXAPARIN 100 MG/ML SYRINGE 84 MG SUB-Q (01:03)
[2022-04-06] MEDS: INSULIN HUMAN REGULAR (*BKC) 100 UNITS/ML 10 UNITS SUB-Q (01:04)
--- NOTE | 2022-04-06 02:15 | PC.NURSE ---
Dr Antonio updated on patient's VS and BS being over 500 with new orders received.
[2022-04-06 02:16] LABS: Glucose Point of Care > 450 mg/dl (65-105)
[2022-04-06 02:23] VITALS: PULSE 74; RESP 20; O2SAT 91
--- NOTE | 2022-04-06 02:27 | PC.NURSE ---
Patient VS bp- 134/49 p-76 t-96.9 spo2-87 r-20, blood sugar greater than 500, MD notified, O2 started at 3l n/c, spo2 91%, lactated ringers at 250ml/hr per orders.
[2022-04-06 02:31] VITALS: BP 134/49; PULSE 76; RESP 20; TEMP 36.1; O2SAT 91
[2022-04-06] MEDS: LACTATED RINGERS 1,000 ML 250 ML IV CONT (02:35)
[2022-04-06] MEDS: INSULIN REG 100 UNITS/100 ML 100 UNITS/100 ML BAG IV CONT (02:43)
--- NOTE | 2022-04-06 03:40 | PC.NURSE ---
Finger stick blood sugar report to Dr Antonio in ED 497, insulin drip at 5 units an hour
[2022-04-06 03:44] LABS: Glucose Point of Care > 450 mg/dl (65-105)
--- NOTE | 2022-04-06 03:45 | PC.NURSE ---
Report to Nia at [facility], to go to ICU for direct admit
[2022-04-06 03:47] VITALS: BP 116/49; PULSE 78; RESP 20; TEMP 36.1; O2SAT 91
--- NOTE | 2022-04-06 03:48 | PC.NURSE ---
EMILIANA doesn't have ALS truck page out for [facility] for transfer
[2022-04-06 03:51] LABS: Acetone Negative (Negative)
[2022-04-06 04:02] LABS: Hemoglobin 10.4 g/dL (11.7-13.8); Lactic Acid Reflex 3.6 mmol/L (0.4-2.0); Mean Corpuscular HGB Conc 35.9 g/dL (32.0-36.0); Mean Corpuscular Hemoglobin 31.6 pg (27.0-31.0); Mean Corpuscular Volume 88.1 fL (78.0-102.0); Mean Platelet Volume 10.6 fl (9.2-11.8); Platelet Count Result 220 K/mm3 (150-420); Red Blood Count 3.29 M/mm3 (4.20-5.40); Red Cell Distribution Width 12.2 % (11.6-14.4); White Blood Count 17.4 K/mm3 (4.8-10.8)
[2022-04-06 04:10] LABS: Alanine Aminotransferase 22 U/L (14-59); Estimated CRCL calculation 41 ml/min; Estimated Glomerular Filt Rate 43
[2022-04-06 04:14] LABS: Anion Gap 11 mmol/L (8-16); Blood Urea Nitrogen 37 mg/dL (7-18); Calcium 8.8 mg/dL (8.5-10.1); Carbon Dioxide 22 mmol/L (21-32); Chloride 84 mmol/L (98-108); Estimated CRCL calculation 41 ml/min; Estimated Glomerular Filt Rate 43; Osmolality Calculated 274 mOsm/kg (285-295); Potassium 4.8 mmol/L (3.5-5.1)
[2022-04-06 04:16] LABS: Glucose 496 mg/dL (70-99); Sodium 117 mmol/L (136-145)
[2022-04-06 04:21] LABS: Hemoglobin A1C 8.2 % (<5.7)
--- NOTE | 2022-04-06 04:29 | PC.NURSE ---
Report to EMS for transfer, patient insulin drip on hold at this time, EMS unable to transport with drip, Dr Antonio aware and OK to hold for transfer, glucose per lab 496 at this time
--- NOTE | 2022-04-06 04:33 | PC.NURSE ---
EMS has patient loaded on Nia amaya at [facility] notified of discharge time, all personal items including patient chart with images on disc sent with patient via EMS
--- NOTE | 2022-04-08 13:47 | PM.EVENT ---
Event Note Event Note Event Note: I didn't see pt or transfer according to Nurses note Dr. Antonio transferred patient to [facility]
[2022-04-09 20:22] LABS: Vitamin D 25 Hydroxy 24 ng/mL (30-100)
== END 2022-04-06 04:35 | disposition short-term general hospital (02) | DRG 177 ==
LOC: CHSED 19:27 → CHS2ND 22:18
PROVIDERS: Nurse Practitioner Family; Admitting Provider Internal Medicine; Emergency Provider Emergency Medicine; PCP Internal Medicine; Visit Provider Internal Medicine
DX: U07.1 COVID-19 (principal); A41.9 Sepsis, unspecified organism; I21.4 Non-ST elevation (NSTEMI) myocardial infarction; J18.9 Pneumonia, unspecified organism; I25.10 Atherosclerotic heart disease of native coronary artery without angina pectoris; I10 Essential (primary) hypertension; E87.1 Hypo-osmolality and hyponatremia; E78.5 Hyperlipidemia, unspecified; Z95.5 Presence of coronary angioplasty implant and graft; E11.9 Type 2 diabetes mellitus without complications
CPT/HCPCS: 36415; 36600; 71250; 80048; 80053; 82010; 82306; 82565; 82805; 82948; 83036; 83605; 83880; 84460; 84484; 85025; 85027; 85610; 87040; 93005; 94640; 96365; 96375; 99285; A9270; J0248; J0696; J1650; J1815; J1940; J2930; J7030; J7120

== ENCOUNTER 2022-04-22 23:40 | Observation (INO) | payer MEDICARE, MEDICAID, SELFPAY ==
--- NOTE | ~2022-04-22 | XR_ITS ---
EXAMINATION: XR chest 1V portable DATE: 04/23/2022 00:13 INDICATION: Weakness, nausea and vomiting. TECHNIQUE: frontal view of the chest was obtained. COMPARISON: Chest radiograph dated 01/02/[address] dated 04/05/2022 FINDINGS: The lungs are clear with no focal airspace opacities, pulmonary edema, pleural effusion or pneumothor ax. The cardiomediastinal silhouette is normal. Moderate degenerative skeletal changes in the spine a nd at both shoulders. IMPRESSION: 1. No acute cardiopulmonary disease. Reviewed, dictated and finalized at location A.
[2022-04-22 23:45] VITALS: BP 120/52; PULSE 93; RESP 16; TEMP 36.7; O2SAT 100
[2022-04-22 23:57] LABS: Glucose Point of Care 354 mg/dl (65-105)
[2022-04-23] VITALS (30 sets, daily range): BP systolic 103–157; BP diastolic 42–85; PULSE 86–106; RESP 14–22; TEMP 36.2–36.8; O2SAT 97–100
--- NOTE | 2022-04-23 00:06 | ECG_ITS ---
Measurements Intervals Freeman Rate: 93 P: 61 IL: 133 QRS: 44 QRSD: 82 T: 50 QT: 316 QTc: 395 Interpretive Statements SINUS RHYTHM WITH SINUS ARRHYTHMIA BASELINE ARTIFACT- I, II, III, AVR, AVL, AVF, V1 NORMAL ECG Electronically Signed On 04-23-2022 7:17:38 CDT by Ricki Torrez D.O.
[2022-04-23 00:18] LABS: Alveolar/Arterial O2 Gradient 20.2 mmHg; Base Excess ABG 1.7 mEq/l (+/-2.0); Carboxyhemoglobin 0.3 % THb (0-2.0); Device ROOM AIR; Fractional Inspired Oxygen 21 %; Modified Allen's Test Pass; Oxygen Content ABG 11.2 %vol (16.0-22.0); Oxygen Saturation ABG 96.5 % (95.0-100.0); Oxyhemoglobin 94.6 % THb (90.0-100.0); PCO2 ABG 39.3 mmHg (35.0-45.0); PO2 ABG 82.5 mmHg (80.0-100.0); PO2 FiO2 Ratio Arterial Blood 3.93 %; Reduced Hemoglobin 5.1 %THb (0-5.0); Site Drawn RIGHT RADIAL; Total Hemoglobin 8.3 g/dL (12.0-18.0); pH ABG 7.438 (7.350-7.450)
[2022-04-23] MEDS: PANTOPRAZOLE SODIUM IV 40 MG VIAL IV PUSH ×3 (00:38→18:41)
[2022-04-23] MEDS: ONDANSETRON INJ 4 MG/2 ML VIAL IV PUSH (00:38)
[2022-04-23] MEDS: LACTATED RINGERS 1,000 ML 999 ML IV CONT (00:38)
[2022-04-23 00:59] LABS: Basophils Percent Auto 0.6 % (0.2-1.2); Eosinophils Percent Auto 0.1 % (0-4.4); Hematocrit 24.2 % (37.0-47.0); Hemoglobin 7.5 g/dL (12.0-15.0); Immature Granulocyte Absolute 0.06 K/mm3 (0.00-0.031); Immature Granulocyte Percent A 0.9 % (0-0.5); Lymphocytes Absolute Auto 0.95 K/mm3 (0.9-3.2); Lymphocytes Percent Auto 13.6 % (18.3-44.2); Mean Corpuscular Hemoglobin 30.7 pg (26-34); Mean Corpuscular Volume 99.2 fl (80-100); Monocytes Absolute Auto 0.3 K/mm3 (0.1-0.6); Monocytes Percent Auto 4.5 % (2.6-8.5); Neutrophils Absolute Auto 5.6 K/mm3 (1.3-6.7); Neutrophils Percent Auto 80.3 % (45.5-73.1); Platelet Count Result 213 k/mm3 (150-375); Red Blood Count 2.44 M/mm3 (4.2-5.4); Red Cell Distribution Width 14.1 % (11.5-14.5)
--- NOTE | 2022-04-23 01:04 | PC.NURSE ---
attempted to get urine sample from pt, pt accidentally pooped at the same time contaminating the urine sample - NC [id number]
--- NOTE | 2022-04-23 01:07 | ED.GENADULT ---
HPI - General Adult General Chief complaint: Unspecified Stated complaint: HEMATAEMESIS Time Seen by Provider: 04/22/22 23:50 Source: patient, EMS, RN notes reviewed and old records reviewed Mode of arrival: EMS Limitations: no limitations History of Present Illness HPI narrative: This is a 66 year old female who presents for evaluation of weakness and hematemesis. Patient states she was recently discharged from hospital in [place] after treatment of COVID with bilateral pneumonia. She was restarted back on Plavix due to her heart disease. She states around 6 pm tonight she develop weakness, sweating with nausea and vomiting. She reports having 6 episodes of emesis, and her initial episodes of nonbloody. She developed emesis with bright red blood. She states it looked like mucous with blood, and she denies clots. She reports having large loose bowel movement today, but she thinks she took too much stool softener. Today she took Senna and gave herself a suppository. She does reports her stool was dark in color. She denies fever, chills, abdominal pain, chest pain or shortness of breath. She denies history of PUD or GI bleeding. Related Data Home Medications Medication Instructions Recorded Confirmed atorvastatin 40 mg tablet 40 mg PO DAILY 12/30/19 04/23/22 metoprolol succinate 50 mg 50 mg PO [facility] 12/30/19 04/23/22 tablet,extended release 24 hr (Toprol XL) aspirin 81 mg chewable tablet 81 mg PO DAILY 07/18/20 04/23/22 (Aspirin Childrens) multivitamin with minerals-folic 1 tablet PO DAILY 07/18/20 04/23/22 acid 200 mcg chewable tablet (Women's Multivitamin Gummies) omega 0-xdl-rjp-fish oil 1,000 mg 1 cap PO DAILY 07/18/20 04/23/22 (120 mg-180 mg) capsule (Fish Oil) clopidogrel 75 mg tablet 75 mg PO DAILY 04/23/22 04/23/22 insulin human U-100 NPH-regulr 75 unit subcut 04/23/22 04/23/22 70-30 mix 100 unit/mL subcutaneous susp (Humulin 70/30 U-100 Insulin) losartan 100 mg tablet 100 mg PO 04/23/22 04/23/22 metoprolol succinate 100 mg 100 mg PO 04/23/22 04/23/22 tablet,extended release 24 hr nifedipine 60 mg tablet,extended 60 mg PO DAILY 04/23/22 04/23/22 release nitroglycerin 0.4 mg sublingual 0.4 mg sublingual Q5M PRN Angina 04/23/22 04/23/22 tablet Allergies Allergy/AdvReac Type Severity Reaction Status Date / Time cephalexin [Keflex] Allergy Intermediate Hives Verified 04/05/22 19:41 Review of Systems Review of Systems: CONSTITUTIONAL: Denies fever, chills, EYES: Denies visual changes, redness, or discharge. ENT: Denies rhinorrhea, congestion, sore throat, or otalgia. CARDIOVASCULAR: Denies chest pain, palpitations, or edema. RESPIRATORY: Denies cough or dyspnea. GASTROINTESTINAL: Denies abdominal pain; Reports nausea, vomiting, GENITOURINARY: Denies dysuria or hematuria. SKIN: Denies rash or itching. MUSCULOSKELETAL: Denies back pain, joint pain, or myalgia. NEUROLOGIC: Denies headache, numbness PSYCHIATRIC: Denies anxiety or depression. All systems reviewed & are unremarkable except as noted in HPI and below PMFSH Past Medical History Medical History (Updated 04/23/22 @ 05:26 by Zoe Garcia MD) Coronary artery disease (11/04/17) Diabetes mellitus Hyperlipidemia Hypertension Non-STEMI (non-ST elevated myocardial infarction) (04/06/22) Pneumonia due to COVID-19 virus (04/05/22) Surgical History Surgical History (Updated 04/23/22 @ 05:15 by Geovanna Rowe DO) History of appendectomy At age 3 S/P coronary artery stent placement (~2010) x2 Family History Family History (Updated 04/23/22 @ 05:14 by Geovanna Rowe DO) Other CHF (congestive heart failure) Social History Social History (Updated 04/23/22 @ 05:18 by Geovanna Rowe DO) Social History: Code status: Full code Surrogate decision maker: Babatunde Prakash (son) Smoking status: Never smoker Alcohol intake: never Alcohol use details: rare alcohol use only in small
[2022-04-23 01:10] LABS: Alanine Aminotransferase 31 U/L (6-35); Albumin Level 2.9 g/dL (3.5-5.1); Alkaline Phosphatase 58 U/L (38-126); Anion Gap 8 mmol/L (8-16); Aspartate Amino Transferase 27 U/L (14-36); Bilirubin,Total 0.5 mg/dL (0.2-1.3); Blood Urea Nitrogen 41 mg/dL (7-17); Carbon Dioxide 27 mmol/L (22-30); Chloride 95 mmol/L (98-107); Estimated CRCL calculation 68 ml/min; Estimated Glomerular Filt Rate > 60; Glucose 368 mg/dL (65-110); Lipase 49 U/L (23-300); Magnesium 1.9 mg/dL (1.6-2.3); Potassium 5.3 mmol/L (3.4-5.0); Sodium 130 mmol/L (137-145)
[2022-04-23 01:11] LABS: Lactic Acid Reflex 3.4 mmol/L (0.7-2.0)
[2022-04-23 01:13] LABS: INR 1.1; Prothrombin Time 14.2 Seconds (11.1-14.7)
[2022-04-23 01:14] LABS: Partial Thromboplastin Time 24.4 SECONDS (22.3-36.8)
[2022-04-23] MEDS: INSULIN HUMAN REGULAR (*BKC) 100 UNITS/ML 6 UNITS IV PUSH (01:33)
[2022-04-23] MEDS: SODIUM CHLORIDE 0.9% IV 1,000 ML 999 ML IV CONT (01:34)
[2022-04-23 01:38] LABS: Glucose Point of Care 324 mg/dl (65-105)
[2022-04-23 02:32] LABS: Hemoglobin 7.6 g/dL (12.0-15.0)
[2022-04-23 02:33] LABS: Glucose Point of Care 257 mg/dl (65-105)
[2022-04-23] MEDS: SODIUM CHLORIDE 0.9% IV 500 ML 999 ML IV CONT (02:39)
[2022-04-23 02:40] LABS: SARS-CoV-2 RNA PCR Positive
[2022-04-23 02:58] LABS: Appearance Urine Clear (Clear); Bilirubin Urine Negative (Negative); Blood Urine Negative (Negative); Color Urine Yellow (Yellow); Glucose Urine UA 2+ mg/dL (Negative); Ketones Urine Trace mg/dL (Negative); Leukocyte Esterase Ur Negative LEU/UL (Negative); Nitrate Urine Negative (Negative); Protein Urine Negative (Negative); Specific Grav Ur 1.015 (1.001-1.035); Urobilinogen Urine 0.2 mg/dL (<2.0); pH Urine 5.5 (5.0-9.0)
[2022-04-23 03:05] LABS: Mucus Urine Rare /lpf; RBC Urine 0-2 /hpf (0-2); WBC Urine 0-3 /hpf
[2022-04-23 03:06] LABS: Add Urine Microscopic? YES
--- NOTE | 2022-04-23 03:55 | PM.IMHP ---
H&P: HPI History of Present Illness Date/Time: 04/23/22 03:55 Chief Complaint: Vomiting blood Narrative: 66-year-old female with a past medical history of coronary artery disease, hyperlipidemia, insulin-dependent diabetes and hypertension who presented to the ER from home due to vomiting bright red blood. Patient was evaluated at [facility] 04/05/2022 and was diagnosed with COVID. She returned to the hospital the next day and was found have bilateral COVID pneumonia, severe lactic acidosis, DKA, and markedly elevated troponins. 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 She was treated conservatively for elevated troponin but on discharge was sent home on Plavix. It sounds as if she was also treated with steroids but I am unsure if she received Remdesivir. The patient reported that she did not have any chest pain throughout her stay except for what was associated with cough. Since she was discharged from the hospital on the she has had persistent dry cough. She denies any recent fever or chills. She denies any chest pain or she changes in shortness of breath. She denies a known history of heart murmur or congestive heart failure. Today the patient suddenly developed generalized ill feeling and started having dry heaves. She became lightheaded and clammy. She had a syncopal or near syncopal event. EMS was called. When EMS arrived to the home that witnessed the patient having bright red emesis multiple times. The patient denies any prior history of GI bleed and has not been taking any NSAIDs at home. She reported that she had not had a bowel movement in several days so on the afternoon of the she took a suppository and a couple of stool softeners. When she did have a bowel movement it was black and mushy. She denies having any abdominal pain, heartburn or GERD symptoms. When her son had stopped to visit with the patient to prior to onset of events the patient had reported that she was feeling bloated and felt like she needed to belch. Patient reports that she has never had a colonoscopy or an EGD. She has never been diagnosed with ulcers. She denies any urinary symptoms are episodes of urinary incontinence. Her repeat COVID PCR today was still positive. Her glucoses at home have been elevated. In the ER her glucose was 368. She received 6 units of IV insulin with repeat glucose of 257. Her anion gap and bicarb were normal. She did have significant lactic acidosis on initial labs in the ER. She received 200 mL of fluid bolus via EMS and another 2.5 L of isotonic fluids in the ER. Her lactic acidosis resolved. The patient was noted to be anemic when she arrived to the hospital at [place] on the she denies a known history of anemia. Her hemoglobin at that time was 10.4. Her hemoglobin today was 7.5. Source of information is from the patient and patient's son at bedside. I discussed the patient's care in condition with the son with the patient's permission. The patient's son reported the patient's voice had been quite course for the last several days in seemed to be getting worse since she was discharged from the hospital. But after she has received several L of fluid in the ER her hoarseness in her voice has almost resolved. Review of Systems Review of Systems: 12 systems were reviewed with pertinent positives and negatives per HPI. Except as documented in the HPI, all other systems were reviewed and are negative. [facility] Past Medical History Medical History (Updated 04/23/22 @ 05:37 by Geovanna Rowe DO) Coronary artery disease (11/04/17) Diabetes mellitus Hyperlipidemia Hypertension Non-STEMI (non-ST elevated myocardial infarction) (04/06/22) Pneumonia due to COVID-19 virus (04/05/22) Surgical History Surgical History (Updated 04/23/22 @ 05:15 by Geovanna Rowe DO) History of appendectomy At age 3 S/P coronary artery stent
[2022-04-23 03:57] LABS: Reflex Lactic Acid Yes or No Add Lactic
--- NOTE | 2022-04-23 04:12 | ADMGEN ---
This patient, Sujata Prakash, was admitted to IMU Room 213-01. Patient/family oriented to hospital policies and general routines including ID bracelet, bed and alarms, visiting hours, pain management, procedures, bathroom and other care routines, personal items, smoking policy, room service/diet, and visiting hours. Information on how to activate the Rapid Response Team has been discussed. Patient/Family are encouraged to report perceived risks to care and to ask questions if they do not understand what they are told or what they should do.
[2022-04-23 04:52] LABS: Lactic Acid 1.5 mmol/L (0.7-2.0)
[2022-04-23 05:39] LABS: Glucose Point of Care 292 mg/dl (65-105)
[2022-04-23] MEDS: INSULIN ASPART (*BKC) 100 UNITS/ML SUB-Q ×3 (05:48→18:47)
[2022-04-23] MEDS: SODIUM CHLORIDE 0.9% IV 1,000 ML 125 ML IV CONT ×2 (05:49→21:47)
[2022-04-23 07:31] LABS: Immature Reticulocyte Fraction 31.5 % (3.0-15.9); Reticulocyte Hemoglobin Conten 34.3 pg (28.2-35.7); Reticulocyte Percent 6.57 % (0.7-4.3); Reticulocytes Absolute 0.14 B/L (32.2-175.7)
[2022-04-23 07:37] LABS: Iron 42 ug/dL (37-170)
[2022-04-23 07:46] LABS: Percent Iron Saturation 16 % (20-50)
[2022-04-23 08:07] LABS: Thyroid Stimulating Hormone Reflex 0.156 uIU/mL (0.465-4.68)
[2022-04-23 08:29] LABS: Hematocrit 20.7 % (37.0-47.0)
[2022-04-23 08:30] LABS: Hemoglobin 6.4 g/dL (12.0-15.0)
[2022-04-23 08:39] LABS: Anion Gap 7 mmol/L (8-16); Blood Urea Nitrogen 35 mg/dL (7-17); Calcium 8.6 mg/dL (8.4-10.2); Carbon Dioxide 24 mmol/L (22-30); Chloride 103 mmol/L (98-107); Estimated CRCL calculation 78 ml/min; Estimated Glomerular Filt Rate > 60; Glucose 249 mg/dL (65-110); Potassium 4.7 mmol/L (3.4-5.0); Sodium 134 mmol/L (137-145)
[2022-04-23 08:42] LABS: Folic Acid 17.7 ng/mL (2.76->20)
[2022-04-23 09:07] LABS: Free T4 Free Thyroxine Reflex 1.37 ng/dL (0.78-2.19)
[2022-04-23] MEDS: SODIUM CHLORIDE 0.9% IV 250 ML 30 ML IV CONT (10:22)
[2022-04-23] MEDS: TUBING, BLOOD PLUM PUMP TUBING 1 EACH XX (10:23)
[2022-04-23 11:28] LABS: Total Triiodothyronine (T3) 1.09 NG/ML (0.97-1.69)
[2022-04-23 11:58] LABS: Glucose Point of Care 267 mg/dl (65-105)
--- NOTE | 2022-04-23 16:52 | WPDGICN ---
Assessment and Plan Assessment and plan (1) Hematemesis: Code(s): K92.0 - Hematemesis Status: Acute Assessment and Plan: will do egd in the morning probably stress ulcer, evaluated for esophagitis, etc on iv protonix more recommendations after scope (2) Acute anemia: Code(s): D64.9 - Anemia, unspecified Status: Acute Assessment and Plan: patient required blood transfusion most likely upper gi source never had colonoscopy, probably can offer one as outpatient' continue to monitor for more signs of bleeding (3) Hyperglycemia due to diabetes mellitus: Code(s): E11.65 - Type 2 diabetes mellitus with hyperglycemia Status: Acute Assessment and Plan: treated (4) Acute dehydration: Code(s): E86.0 - Dehydration Status: Acute Assessment and Plan: treated (5) Coronary artery disease: Onset Date: 11/04/17 Code(s): I25.10 - Atherosclerotic heart disease of [place] coronary artery without angina pectoris Status: Acute Assessment and Plan: plavix on hold for now GI Consult Note Consult date/time: 04/23/22 16:52 Reason for consult: hematemesis, acute blood loss anemia HPI: Sujata Prakash is a 66 year old female with history of coronary artery disease, hyperlipidemia, insulin-dependent diabetes and hypertension who came to the ER from home due to new onset of vomiting bright red blood.?She was diagnosed with COVID on 04/05/22 at [place] and admitted the following day with bilateral COVID pneumonia, severe lactic acidosis, DKA, and markedly elevated troponins then 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 She now is taking baby aspirin and plavix. [place]ay had at least 6 episodes of bright red emesis and also noted melena, became lightheaded and clammy.?She denies any prior history of GI bleed and has not been taking any NSAIDs. Patient reports that she has never had a colonoscopy or an EGD.? She is feeling better now and got 2 units prbc, hb was low ~ 6.4, bun 40. Review of Systems Review of Systems: CONSTITUTIONAL: Denies fever, chills, EYES: Denies visual changes, redness, or discharge. ENT: Denies rhinorrhea, congestion, sore throat, or otalgia. CARDIOVASCULAR: Denies chest pain, palpitations, or edema. RESPIRATORY: Denies cough or dyspnea. GASTROINTESTINAL: Denies abdominal pain; Reports nausea, vomiting, GENITOURINARY: Denies dysuria or hematuria. SKIN: Denies rash or itching. MUSCULOSKELETAL: Denies back pain, joint pain, or myalgia. NEUROLOGIC: Denies headache, numbness PSYCHIATRIC: Denies anxiety or depression. All systems reviewed & are unremarkable except as noted in HPI and below PMFSH Past Medical History Medical History (Updated 04/23/22 @ 17:03 by Jaime Cruz MD) Coronary artery disease (11/04/17) Diabetes mellitus Hyperlipidemia Hypertension Non-STEMI (non-ST elevated myocardial infarction) (04/06/22) Pneumonia due to COVID-19 virus (04/05/22) Surgical History Surgical History (Updated 04/23/22 @ 05:15 by Geovanna Rowe DO) History of appendectomy At age 3 S/P coronary artery stent placement (~2010) x2 Family History Family History (Updated 04/23/22 @ 05:14 by Geovanna Rowe DO) Other CHF (congestive heart failure) Social History Social History (Updated 04/23/22 @ 05:18 by Geovanna Rowe DO) Social History: Code status: Full code Surrogate decision maker: Babatunde Prakash (son) Smoking status: Never smoker Alcohol intake: never Alcohol use details: rare alcohol use only in small amounts Substance use: never Additional living arrangements comments: She lives in her own apartment. Her brother recently moved in with her after he retired. She has 1 son. 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 Gender identi
[2022-04-23 17:18] LABS: Glucose Point of Care 217 mg/dl (65-105)
[2022-04-23 20:08] LABS: Hematocrit 29.1 % (37.0-47.0); Hemoglobin 9.4 g/dL (12.0-15.0)
[2022-04-23 21:20] LABS: Hematocrit 29.1 % (37.0-47.0); Hemoglobin 9.2 g/dL (12.0-15.0)
[2022-04-23] MEDS: LOSARTAN POTASSIUM 100 MG TABLET PO (21:45)
[2022-04-23] MEDS: INSULIN HUMAN ISOPHAN/REGULAR 70/30 (*BKC) 100 UNITS/ML 40 UNITS SUB-Q (21:48)
[2022-04-24] VITALS (16 sets, daily range): BP systolic 105–151; BP diastolic 42–56; PULSE 66–95; RESP 16–22; TEMP 36.3–37.1; O2SAT 93–100
[2022-04-24 00:26] LABS: Glucose Point of Care 256 mg/dl (65-105)
[2022-04-24 05:20] LABS: Glucose Point of Care 146 mg/dl (65-105)
[2022-04-24] MEDS: SODIUM CHLORIDE 0.9% IV 1,000 ML 125 ML IV CONT ×2 (05:21→21:18)
[2022-04-24 07:14] LABS: Glucose Point of Care 148 mg/dl (65-105)
[2022-04-24 07:31] LABS: Hematocrit 28.7 % (37.0-47.0); Hemoglobin 9.4 g/dL (12.0-15.0)
[2022-04-24] MEDS: NIFEdipine 30 MG TAB.ER.24 60 MG PO (09:15)
[2022-04-24] MEDS: ATORVASTATIN 40 MG TABLET PO (09:15)
[2022-04-24] MEDS: PANTOPRAZOLE SODIUM IV 40 MG VIAL IV PUSH ×2 (09:15→17:42)
[2022-04-24] MEDS: METOPROLOL SUCCINATE EXT REL 100 MG TABCR PO (09:15)
--- NOTE | 2022-04-24 11:12 | WPDANESEPPF ---
Anes - Initial Pre Proc Eval Procedure: Operation Date: 04/24/22 15:00 Proposed Procedures p Esophagogastroduodenoscopy - Jaime Cruz MD Date/Time: 04/24/22 11:12 Surgeon: Kevin Harris MD Pre Op Diagnosis: upper GI Bleeding, anemia Patient Data Age: 66 Gender: F Height: 1.65 m Weight: 76.2 kg Last Vital Signs Temp 36.6 C 04/24/22 08:00 Pulse 89 04/24/22 09:15 Resp 16 04/24/22 08:00 BP 139/56 L 04/24/22 08:00 Pulse Ox 93 04/24/22 08:00 O2 Del Method Room Air 04/24/22 04:00 Allergies Allergy/AdvReac Type Severity Reaction Status Date / Time cephalexin [Keflex] Allergy Intermediate Hives Verified 04/05/22 19:41 Home Medications Medication Instructions Recorded Confirmed Type atorvastatin 40 mg tablet 40 mg PO DAILY 12/30/19 04/23/22 History aspirin 81 mg chewable tablet 81 mg PO DAILY 07/18/20 04/23/22 History (Aspirin Childrens) multivitamin with minerals-folic 1 tablet PO DAILY 07/18/20 04/23/22 History acid 200 mcg chewable tablet (Women's Multivitamin Gummies) omega 0-ags-mru-fish oil 1,000 mg 1 cap PO DAILY 07/18/20 04/23/22 History (120 mg-180 mg) capsule (Fish Oil) clopidogrel 75 mg tablet 75 mg PO DAILY 04/23/22 04/23/22 History insulin human U-100 NPH-regulr 70 unit subcut DAILY 04/23/22 04/23/22 History 70-30 mix 100 unit/mL subcutaneous susp (Humulin 70/30 U-100 Insulin) insulin human U-100 NPH-regulr 80 unit subcut HS 04/23/22 04/23/22 History 70-30 mix 100 unit/mL subcutaneous susp (Humulin 70/30 U-100 Insulin) losartan 100 mg tablet 100 mg PO HS 04/23/22 04/23/22 History metoprolol succinate 100 mg 100 mg PO DAILY 04/23/22 04/23/22 History tablet,extended release 24 hr nifedipine 60 mg tablet,extended 60 mg PO DAILY 04/23/22 04/23/22 History release nitroglycerin 0.4 mg sublingual 0.4 mg sublingual Q5M PRN Angina 04/23/22 04/23/22 History tablet Laboratory Tests 04/23/22 04/23/22 04/23/22 00:56 04:36 11:39 Hgb Hct POC Capillary Glucose 267 mg/dl H mg/dl (65-105) Total T3 1.09 NG/ML NG/ML (0.97-1.69) Blood Type A Negative Antibody Screen Negative Crossmatch See Detail 04/23/22 04/23/22 04/23/22 17:11 19:32 21:02 Hgb 9.4 g/dL L D g/dL 9.2 g/dL L g/dL (12.0-15.0) (12.0-15.0) Hct 29.1 % L % 29.1 % L % (37.0-47.0) (37.0-47.0) POC Capillary Glucose 217 mg/dl H mg/dl (65-105) Total T3 Blood Type Antibody Screen Crossmatch 04/24/22 04/24/22 04/24/22 00:22 05:16 07:11 Hgb Hct POC Capillary Glucose 256 mg/dl H mg/dl 146 mg/dl H mg/dl 148 mg/dl H mg/dl (65-105) (65-105) (65-105) Total T3 Blood Type Antibody Screen Crossmatch 04/24/22 07:20 Hgb 9.4 g/dL L g/dL (12.0-15.0) Hct 28.7 % L % (37.0-47.0) POC Capillary Glucose Total T3 Blood Type Antibody Screen Crossmatch Patient hx anesthesia problems: none Family hx anesthesia problems: none Results Review: All pre-operative results and documents have been reviewed as part of the pre-operative evaluation. [facility] Past Medical History Medical History (Updated 04/23/22 @ 17:03 by Jaime Cruz MD) Coronary artery disease (11/04/17) Diabetes mellitus Hyperlipidemia Hypertension Non-STEMI (non-ST elevated myocardial infarction) (04/06/22) Pneumonia due to COVID-19 virus (04/05/22) Surgical History Surgical History (Updated 04/23/22 @ 05:15 by Geovanna Rowe DO) History of appendectomy At age 3 S/P coronary artery stent placement (~2010) x2 Family History Family History (Updated 04/23/22 @ 05:14 by Geovanna Rowe DO) Other CHF (congestive heart failure) Social History Social History (Updated 04/23
[2022-04-24 11:25] LABS: Glucose Point of Care 180 mg/dl (65-105)
--- NOTE | 2022-04-24 12:03 | PM.IMPN ---
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 The patient may have developed a stress ulcer given her recent hospitalizations and recent restarting of Plavix. Aspirin and Plavix are on hold. GI consulted PPI b.i.d. Planned EGD today (2) Type 2 diabetes mellitus with hyperglycemia, with long-term current use of insulin: Code(s): E11.65 - Type 2 diabetes mellitus with hyperglycemia; Z79.4 - MCFP (current) use of insulin Status: Acute Assessment and Plan: The patient has insulin-dependent diabetes mellitus with hyperglycemia. She had significant hyperglycemia on presentation. Glucoses improved after IV insulin and fluids. Currently on high-dose sliding scale insulin q.6 hours will NPO. Will continue hypoglycemia protocol as needed. (3) Acute anemia: Code(s): D64.9 - Anemia, unspecified Status: Acute Assessment and Plan: The patient has acute on chronic anemia. Although patient did have a hemoglobin of 10 during her ER visit at [place] I suspect the patient's hemoglobin was lower upon discharge from hospital in [place] as she was quite dehydrated when she was in the ER at [place]. Her baseline hemoglobin is not known. Patient has been typed and screened. Will continue to monitor serial H&Hs every 6 hours. Hemoglobin down to 6.4 04/23 (4) Hyponatremia: Code(s): E87.1 - Hypo-osmolality and hyponatremia Status: Acute Assessment and Plan: The patient's hyponatremia is improved compared to her prior hospitalization. I suspect of pop component of her hyponatremia so due to hyperglycemia. Will continue to monitor. (5) Essential hypertension: Code(s): I10 - Essential (primary) hypertension Status: Acute Assessment and Plan: Resume home medication (6) Hyperkalemia: Code(s): E87.5 - Hyperkalemia Status: Acute Assessment and Plan: Likely due to dehydration Plan Mild lactic acidosis 3.4 on admission resolved with IV resuscitation Coronary artery disease with recent elevated troponin related to COVID pneumonia status post stents in 2010 recently placed back on Plavix. DVT prophylaxis SCDs Code status full code Subjective Date/time seen: 04/24/22 12:03 Interval history: HPI:66-year-old female with a past medical history of coronary artery disease, hyperlipidemia, insulin-dependent diabetes and hypertension who presented to the ER from home due to vomiting bright red blood.? Patient was evaluated at [facility] 04/05/2022 and was diagnosed with COVID.? She returned to the hospital the next day and was found have bilateral COVID pneumonia, severe lactic acidosis, DKA, and markedly elevated troponins.? 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 She was treated conservatively for elevated troponin but on discharge was sent home on Plavix.? It sounds as if she was also treated with steroids but I am unsure if she received Remdesivir.? The patient reported that she did not have any chest pain throughout her stay except for what was associated with cough.? Since she was discharged from the hospital on the she has had persistent dry cough.? She denies any recent fever or chills.? She denies any chest pain or she changes in shortness of breath.? She denies a known history of heart murmur or congestive heart failure.? Today the patient suddenly developed generalized ill feeling and started having dry heaves.? She became lightheaded and clammy.? She had a syncopal or near syncopal event.? EMS was called.? When EMS arrived to the home that witnessed the patient having bright red emesis multiple times.? The patient denies any prior history of GI bleed and has not
[2022-04-24] MEDS: LACTATED RINGERS 1,000 ML 150 ML IV CONT (13:24)
[2022-04-24 13:29] LABS: Glucose Point of Care 159 mg/dl (65-105)
[2022-04-24 14:46] LABS: Glucose Point of Care 148 mg/dl (65-105)
[2022-04-24 16:59] LABS: Glucose Point of Care 146 mg/dl (65-105)
[2022-04-24] MEDS: SUCRALFATE SUSP 100 MG/ML 10 ML UDC 1000 MG PO ×2 (17:41→21:18)
[2022-04-24 18:45] LABS: Glucose Point of Care 304 mg/dl (65-105)
[2022-04-24] MEDS: INSULIN ASPART (*BKC) 100 UNITS/ML SUB-Q (18:57)
[2022-04-24] MEDS: INSULIN HUMAN ISOPHAN/REGULAR 70/30 (*BKC) 100 UNITS/ML 40 UNITS SUB-Q (21:18)
[2022-04-24] MEDS: LOSARTAN POTASSIUM 100 MG TABLET PO (21:19)
--- NOTE | 2022-04-24 22:12 | PC.NURSE ---
This patient, Sujata Prakash, was transferred to [[id number] ] on 04/24/22 at 2213. Personal belongings sent with patient. Report given to [ ]. Appropriate documentation sent with patient.report given to carley.
[2022-04-24] MEDS: BENZOCAINE/MENTHOL (*BKC) 18 EA LOZENGE 1 LOZENGE PO (23:08)
[2022-04-25] MEDS: SODIUM CHLORIDE 0.9% IV 1,000 ML 125 ML IV CONT (06:09)
[2022-04-25] MEDS: SUCRALFATE SUSP 100 MG/ML 10 ML UDC 1000 MG PO ×4 (06:09→20:46)
[2022-04-25 06:15] VITALS: BP 147/55; PULSE 87; RESP 21; TEMP 36.7; O2SAT 100
[2022-04-25 06:22] LABS: Basophils Percent Auto 0.5 % (0.2-1.2); Eosinophils Absolute Auto 0.2 K/mm3 (0-0.3); Eosinophils Percent Auto 3.3 % (0-4.4); Hematocrit 28.1 % (37.0-47.0); Hemoglobin 9.1 g/dL (12.0-15.0); Immature Granulocyte Absolute 0.05 K/mm3 (0.00-0.031); Immature Granulocyte Percent A 0.9 % (0-0.5); Lymphocytes Absolute Auto 2.02 K/mm3 (0.9-3.2); Lymphocytes Percent Auto 34.7 % (18.3-44.2); Mean Corpuscular HGB Conc 32.4 g/dl (32-36); Mean Corpuscular Volume 92.7 fl (80-100); Mean Platelet Volume 9.2 fl (7.4-10.4); Monocytes Absolute Auto 0.5 K/mm3 (0.1-0.6); Monocytes Percent Auto 8.4 % (2.6-8.5); Neutrophils Percent Auto 52.2 % (45.5-73.1); Nucleated Red Blood Cells Perc 0.3 % (0.0-0.2); Platelet Count Result 144 k/mm3 (150-375); Red Blood Count 3.03 M/mm3 (4.2-5.4); Red Cell Distribution Width 16.7 % (11.5-14.5); White Blood Count 5.8 K/mm3 (4.5-10.0)
[2022-04-25 06:38] LABS: Alanine Aminotransferase 19 U/L (6-35); Albumin Level 2.6 g/dL (3.5-5.1); Alkaline Phosphatase 54 U/L (38-126); Anion Gap 5 mmol/L (8-16); Aspartate Amino Transferase 19 U/L (14-36); Bilirubin,Total 0.6 mg/dL (0.2-1.3); Blood Urea Nitrogen 12 mg/dL (7-17); Carbon Dioxide 29 mmol/L (22-30); Chloride 106 mmol/L (98-107); Estimated CRCL calculation 78 ml/min; Estimated Glomerular Filt Rate > 60; Glucose 56 mg/dL (65-110); Magnesium 1.8 mg/dL (1.6-2.3); Potassium 3.5 mmol/L (3.4-5.0); Sodium 140 mmol/L (137-145)
[2022-04-25 07:34] LABS: Glucose Point of Care 159 mg/dl (65-105)
--- NOTE | 2022-04-25 07:59 | WPDANESPN ---
Anes - Prog Note Post-Op Date/Time: 04/25/22 07:59 Cardiovascular status: normal Respiratory status: normal Airway patency: baseline Mental status: baseline Post-Op hydration status: normal Vital Signs: Last Vital Signs Temp 36.7 C 04/25/22 06:15 Pulse 87 04/25/22 06:15 Resp 21 H 04/25/22 06:15 BP 147/55 H 04/25/22 06:15 Pulse Ox 100 04/25/22 06:15 O2 Del Method Room Air 04/24/22 22:45 O2 Flow Rate 2 04/24/22 14:36 Pain Score (VAS): 0 I/O: Intake & Output 04/24/22 04/24/22 04/25/22 15:59 23:59 07:59 Intake Total 7314 294 2270 Output Total 400 Balance 222 881 1826 Laboratory Tests 04/25/22 05:41 04/25/22 05:41 04/24/22 04/24/22 04/24/22 11:19 13:25 14:43 WBC RBC Hgb Hct MCV MCH MCHC RDW Plt Count MPV Immature Gran % (Auto) Neut % (Auto) Lymph % (Auto) [place] % (Auto) Eos % (Auto) Baso % (Auto) Lymph # (Auto) [place] # (Auto) Eos # (Auto) Baso # (Auto) Abs Immat Gran (auto) Absolute Neuts (auto) Absolute Nucleated RBC Nucleated RBC % Sodium Potassium Chloride Carbon Dioxide Anion Gap BUN Creatinine Estim Creat Clear Calc Estimated GFR Glucose POC Capillary Glucose 180 H 159 H 148 H Calcium Magnesium Total Bilirubin AST ALT Alkaline Phosphatase Total Protein Albumin 04/24/22 04/24/22 04/25/22 16:33 18:41 05:41 WBC 5.8 RBC 3.03 L Hgb 9.1 L Hct 28.1 L MCV 92.7 D MCH 30.0 MCHC 32.4 RDW 16.7 H Plt Count 144 L MPV 9.2 Immature Gran % (Auto) 0.9 H Neut % (Auto) 52.2 Lymph % (Auto) 34.7 [place] % (Auto) 8.4 Eos % (Auto) 3.3 Baso % (Auto) 0.5 Lymph # (Auto) 2.02 [place] # (Auto) 0.5 Eos # (Auto) 0.2 Baso # (Auto) 0.0 Abs Immat Gran (auto) 0.05 H Absolute Neuts (auto) 3.0 Absolute Nucleated RBC 0.0 Nucleated RBC % 0.3 H Sodium Potassium Chloride Carbon Dioxide Anion Gap BUN Creatinine Estim Creat Clear Calc Estimated GFR Glucose POC Capillary Glucose 146 H 304 H Calcium Magnesium Total Bilirubin AST ALT Alkaline Phosphatase Total Protein Albumin 04/25/22 04/25/22 05:41 07:31 WBC RBC Hgb Hct MCV MCH MCHC RDW Plt Count MPV Immature Gran % (Auto) Neut % (Auto) Lymph % (Auto) [place] % (Auto) Eos % (Auto) Baso % (Auto) Lymph # (Auto) [place] # (Auto) Eos # (Auto) Baso # (Auto) Abs Immat Gran (auto) Absolute Neuts (auto) Absolute Nucleated RBC Nucleated RBC % Sodium 140 Potassium 3.5 Chloride 106 Carbon Dioxide 29 Anion Gap 5 L BUN 12 D Creatinine 0.60 L Estim Creat Clear Calc 78 Estimated GFR > 60 Glucose 56 L* POC Capillary Glucose 159 H Calcium 8.0 L Magnesium 1.8 Total Bilirubin 0.6 AST 19 ALT 19 Alkaline Phosphatase 54 Total Protein 5.0 L Albumin 2.6 L Post-procedural complaints: none Patient Feedback: Patient satisfied with anesthetic care.
[2022-04-25 09:03] VITALS: PULSE 89
[2022-04-25] MEDS: METOPROLOL SUCCINATE EXT REL 100 MG TABCR PO (09:03)
[2022-04-25] MEDS: CLOPIDOGREL BISULFATE 75 MG TABLET PO (09:03)
[2022-04-25] MEDS: ATORVASTATIN 40 MG TABLET PO (09:03)
[2022-04-25] MEDS: PANTOPRAZOLE SODIUM IV 40 MG VIAL IV PUSH ×2 (09:03→17:12)
[2022-04-25] MEDS: NIFEdipine 30 MG TAB.ER.24 60 MG PO (09:03)
[2022-04-25] MEDS: polyethylene glycoL 3350 17 GM POWD.PACK PO (10:37)
[2022-04-25] MEDS: INSULIN HUMAN ISOPHAN/REGULAR 70/30 (*BKC) 100 UNITS/ML 20 UNITS SUB-Q (10:37)
[2022-04-25 11:18] LABS: Glucose Point of Care 224 mg/dl (65-105)
--- NOTE | 2022-04-25 11:31 | PM.IMPN ---
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 The patient may have developed a stress ulcer given her recent hospitalizations and recent restarting of Plavix. Aspirin and Plavix are on hold. GI consulted PPI b.i.d. status post EGD 04/24/2022 with esophagitis and gastritis on PPI hold Plavix for 2. Resume aspirin upon discharge H&H is stable Follow-up with Cardiology with regard to long-term Plavix need as sounds elevated troponin recent admission would be related to her underlying COPD rather than myocardial infarction (2) Type 2 diabetes mellitus with hyperglycemia, with long-term current use of insulin: Code(s): E11.65 - Type 2 diabetes mellitus with hyperglycemia; Z79.4 - shelter (current) use of insulin Status: Acute Assessment and Plan: The patient has insulin-dependent diabetes mellitus with hyperglycemia. She had significant hyperglycemia on presentation. Glucoses improved after IV insulin and fluids. Currently on high-dose sliding scale insulin q.6 hours will NPO. Will continue hypoglycemia protocol as needed. Adjust insulin and monitor (3) Acute anemia: Code(s): D64.9 - Anemia, unspecified Status: Acute Assessment and Plan: The patient has acute on chronic anemia. Although patient did have a hemoglobin of 10 during her ER visit at [place] I suspect the patient's hemoglobin was lower upon discharge from hospital in [place] as she was quite dehydrated when she was in the ER at [place]. Her baseline hemoglobin is not known. Patient has been typed and screened. Will continue to monitor serial H&Hs every 6 hours. Hemoglobin down to 6.4 04/23 status post 2 units check PRBC transfusion (4) Hyponatremia: Code(s): E87.1 - Hypo-osmolality and hyponatremia Status: Acute Assessment and Plan: The patient's hyponatremia is improved compared to her prior hospitalization. I suspect of pop component of her hyponatremia so due to hyperglycemia. Will continue to monitor. (5) Essential hypertension: Code(s): I10 - Essential (primary) hypertension Status: Acute Assessment and Plan: Resume home medication (6) Hyperkalemia: Code(s): E87.5 - Hyperkalemia Status: Acute Assessment and Plan: Likely due to dehydration Plan Mild lactic acidosis 3.4 on admission resolved with IV resuscitation Coronary artery disease with recent elevated troponin related to COVID pneumonia status post stents in 2010 recently placed back on Plavix. currently aspirin Plavix both on hold due to GI bleed DVT prophylaxis SCDs Code status full code Additional Plan disposition: PT OT to see will stop fluid today labs in a.m. stable discharge home tomorrow Subjective Date/time seen: 04/25/22 11:31 Interval history: HPI:66-year-old female with a past medical history of coronary artery disease, hyperlipidemia, insulin-dependent diabetes and hypertension who presented to the ER from home due to vomiting bright red blood.? Patient was evaluated at [facility] 04/05/2022 and was diagnosed with COVID.? She returned to the hospital the next day and was found have bilateral COVID pneumonia, severe lactic acidosis, DKA, and markedly elevated troponins.? 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 She was treated conservatively for elevated troponin but on discharge was sent home on Plavix.? It sounds as if she was also treated with steroids but I am unsure if she received Remdesivir.? The patient reported that she did not have any chest pain throughout her stay except for what was associated with cough.? Since she was discharged from the hospital on the she has had persistent dry cough.?
[2022-04-25] MEDS: INSULIN ASPART (*BKC) 100 UNITS/ML SUB-Q (12:26)
[2022-04-25 14:00] VITALS: BP 136/48; PULSE 79; RESP 16; TEMP 36.6; O2SAT 97
[2022-04-25 16:20] LABS: Glucose Point of Care 142 mg/dl (65-105)
--- NOTE | 2022-04-25 16:41 | WPDGIPROGNO ---
Progress Note: A&P Assessment and Plan (1) Ulcer, stomach peptic: Code(s): K25.9 - Gastric ulcer, unspecified as acute or chronic, without hemorrhage or perforation Status: Acute Assessment and Plan: egd yesterday with esophagitis and ulcerative gastritis s/p bx will need to go home with ppi twice daily (already prescribed) egd in 3 months to document healing hold plavix for 2 weeks home soon (2) Hematemesis: Code(s): K92.0 - Hematemesis Status: Acute Assessment and Plan: resolved (3) Acute anemia: Code(s): D64.9 - Anemia, unspecified Status: Acute Assessment and Plan: improved after transfusion h/h as outpatient (4) Coronary artery disease: Onset Date: 11/04/17 Code(s): I25.10 - Atherosclerotic heart disease of [place] coronary artery without angina pectoris Status: Acute Subjective Date/time seen: 04/25/22 16:41 Interval history: she is doing much better, no signs of bleeding and tolerating diet Review of Systems Review of Systems: All systems reviewed & are unremarkable except as noted in HPI and below Exam Const: General: comfortable and no acute distress HENMT: General nose exam: Normal nares present Eyes: General: appearance normal, both eyes and all related structures Neck: Neck: supple Resp: Other: Clear to auscultation bilaterally Cardio: Rate: regular rate GI: GI Palp: Yes Soft to palpation and No Tenderness to palpation present (GI) Auscultation: normal bowel sounds Neuro: Other: Alert oriented times 4, speech is clear, no facial asymmetry, patient is a good historian, no localizing neurologic deficits noted on limited exam Extrem: Other: No clubbing, cyanosis or edema Psych: Other: Appropriate mood and affect, pleasant and cooperative Objective Data Vital Signs Vital Signs: Vital Signs - 24 hr 04/24/22 16:58 04/24/22 19:31 04/24/22 20:00 Temperature 97.4 F L 97.5 F L Pulse Rate 81 86 86 Respiratory Rate 16 22 H 22 H Blood Pressure 128/53 L 122/43 L Pulse Oximetry 98 94 94 Oxygen Delivery Room Air 04/24/22 22:45 04/25/22 06:15 04/25/22 09:03 Temperature 98.1 F Pulse Rate 86 87 89 Respiratory Rate 22 H 21 H Blood Pressure 147/55 H Pulse Oximetry 94 100 Oxygen Delivery Room Air 04/25/22 10:58 04/25/22 09:15 04/25/22 11:10 Temperature Pulse Rate Respiratory Rate Blood Pressure Pulse Oximetry Oxygen Delivery Room Air Room Air Room Air 04/25/22 14:00 Temperature 97.9 F Pulse Rate 79 Respiratory Rate 16 Blood Pressure 136/48 L Pulse Oximetry 97 Oxygen Delivery Intake/Output Intake/Output: Intake & Output 04/22/22 04/23/22 04/24/22 04/25/22 23:59 23:59 23:59 23:59 Intake Total 4890 2640 1600 Output Total 1725 1400 Balance 3165 1240 1600 Meds/Results Medications: Active Medications Generic Name Dose Route Start Last Admin Trade Name Freq PRN Reason Stop Dose Admin Atorvastatin Calcium 40 mg 04/24/22 09:00 04/25/22 09:03 Atorvastatin 40 Mg Tablet PO 40 mg DAILY [place] Administration Clopidogrel Bisulfate 75 mg 04/24/22 09:00 04/25/22 09:03 Clopidogrel Bisulfate 75 Mg Tablet PO 75 mg DAILY [place] Administration Dextrose 12.5 gm 04/23/22 05:12 Dextrose 50% 25 Gm/50 Ml Syringe IV PUSH PRN PRN Hypoglycemia Protocol Glucagon 1 mg 04/23/22 05:12 Glucagon For Inj 1 Mg Vial IM PRN PRN Hypoglycemia Protocol Glucose 15 gm 04/23/22 05:12 Glucose Oral Gel 15 Gm Of Glucse In 37.5 Gm Tube PO PRN PRN Hypoglycemia Protocol Dextrose 1,000 mls @ 100 mls/hr 04/23/22 05:12 Dextrose 5% 1,000 Ml IVPB PRN PRN Hypoglycemia Protocol Insulin Aspart 3 - 6 units 04/25/22 08:00 04/25/22 12:26 Insulin Aspart (*Bkc) 100 Units/Ml SUB-Q 3 units TIDWM [place] Administration Protocol Insulin Human Isoph/Insulin Regular 40 units
[2022-04-25 20:00] VITALS: PULSE 79; RESP 16; O2SAT 97
[2022-04-25] MEDS: LOSARTAN POTASSIUM 100 MG TABLET PO (20:45)
[2022-04-25] MEDS: INSULIN HUMAN ISOPHAN/REGULAR 70/30 (*BKC) 100 UNITS/ML 40 UNITS SUB-Q (20:59)
[2022-04-25 21:02] LABS: Glucose Point of Care 246 mg/dl (65-105)
[2022-04-25 22:47] VITALS: BP 110/53; PULSE 84; RESP 21; TEMP 36.9; O2SAT 100
[2022-04-26] MEDS: SUCRALFATE SUSP 100 MG/ML 10 ML UDC 1000 MG PO ×2 (05:52→12:30)
[2022-04-26 05:55] LABS: Basophils Percent Auto 0.5 % (0.2-1.2); Eosinophils Absolute Auto 0.2 K/mm3 (0-0.3); Eosinophils Percent Auto 3.8 % (0-4.4); Hematocrit 26.7 % (37.0-47.0); Hemoglobin 8.4 g/dL (12.0-15.0); Immature Granulocyte Absolute 0.05 K/mm3 (0.00-0.031); Immature Granulocyte Percent A 0.9 % (0-0.5); Lymphocytes Absolute Auto 1.81 K/mm3 (0.9-3.2); Lymphocytes Percent Auto 31.5 % (18.3-44.2); Mean Corpuscular HGB Conc 31.5 g/dl (32-36); Mean Corpuscular Hemoglobin 29.8 pg (26-34); Mean Corpuscular Volume 94.7 fl (80-100); Mean Platelet Volume 9.2 fl (7.4-10.4); Monocytes Absolute Auto 0.5 K/mm3 (0.1-0.6); Monocytes Percent Auto 9.4 % (2.6-8.5); Neutrophils Absolute Auto 3.1 K/mm3 (1.3-6.7); Neutrophils Percent Auto 53.9 % (45.5-73.1); Platelet Count Result 142 k/mm3 (150-375); Red Blood Count 2.82 M/mm3 (4.2-5.4); Red Cell Distribution Width 16.5 % (11.5-14.5); White Blood Count 5.7 K/mm3 (4.5-10.0)
[2022-04-26 06:00] VITALS: BP 129/43; PULSE 83; RESP 20; TEMP 37.1; O2SAT 99
[2022-04-26 06:04] LABS: Alanine Aminotransferase 16 U/L (6-35); Albumin Level 2.6 g/dL (3.5-5.1); Alkaline Phosphatase 53 U/L (38-126); Anion Gap 2 mmol/L (8-16); Aspartate Amino Transferase 15 U/L (14-36); Bilirubin,Total 0.7 mg/dL (0.2-1.3); Blood Urea Nitrogen 10 mg/dL (7-17); Calcium 8.1 mg/dL (8.4-10.2); Carbon Dioxide 30 mmol/L (22-30); Chloride 106 mmol/L (98-107); Estimated CRCL calculation 78 ml/min; Estimated Glomerular Filt Rate > 60; Glucose 47 mg/dL (65-110); Potassium 3.7 mmol/L (3.4-5.0); Sodium 138 mmol/L (137-145)
[2022-04-26 07:34] LABS: Glucose Point of Care 52 mg/dl (65-105)
[2022-04-26 08:02] LABS: Glucose Point of Care 100 mg/dl (65-105)
[2022-04-26 09:03] LABS: Hematocrit 29.4 % (37.0-47.0); Hemoglobin 9.3 g/dL (12.0-15.0)
[2022-04-26] MEDS: ATORVASTATIN 40 MG TABLET PO (09:06)
[2022-04-26] MEDS: NIFEdipine 30 MG TAB.ER.24 60 MG PO (09:06)
[2022-04-26] MEDS: PANTOPRAZOLE SODIUM IV 40 MG VIAL IV PUSH (09:06)
[2022-04-26 09:07] VITALS: PULSE 83
[2022-04-26] MEDS: METOPROLOL SUCCINATE EXT REL 100 MG TABCR PO (09:07)
--- NOTE | 2022-04-26 11:00 | WPDGIPROGNO ---
Progress Note: A&P Assessment and Plan (1) Ulcer, stomach peptic: Code(s): K25.9 - Gastric ulcer, unspecified as acute or chronic, without hemorrhage or perforation Status: Acute Assessment and Plan: egd showed esophagitis and ulcerative gastritis s/p bx she is going home with ppi twice daily (already prescribed) egd in 3 months to document healing hold plavix for 2 weeks (2) Hematemesis: Code(s): K92.0 - Hematemesis Status: Acute Assessment and Plan: resolved (3) Acute anemia: Code(s): D64.9 - Anemia, unspecified Status: Acute Assessment and Plan: improved after transfusion h/h as outpatient (4) Coronary artery disease: Onset Date: 11/04/17 Code(s): I25.10 - Atherosclerotic heart disease of [place] coronary artery without angina pectoris Status: Acute Subjective Date/time seen: 04/26/22 11:00 Interval history: no more bleeding and tolerating regular diet Review of Systems Review of Systems: All systems reviewed & are unremarkable except as noted in HPI and below Exam Const: General: comfortable and no acute distress HENMT: General nose exam: Normal nares present Eyes: General: appearance normal, both eyes and all related structures Neck: Neck: supple Resp: Other: Clear to auscultation bilaterally Cardio: Rate: regular rate GI: GI Palp: Yes Soft to palpation and No Tenderness to palpation present (GI) Auscultation: normal bowel sounds Neuro: Other: Alert oriented times 4, speech is clear, no facial asymmetry, patient is a good historian, no localizing neurologic deficits noted on limited exam Extrem: Other: No clubbing, cyanosis or edema Psych: Other: Appropriate mood and affect, pleasant and cooperative Objective Data Vital Signs Vital Signs: Vital Signs - 24 hr 04/25/22 20:00 04/25/22 22:47 04/26/22 06:00 Temperature 98.4 F 98.8 F Pulse Rate 79 84 83 Respiratory Rate 16 21 H 20 Blood Pressure 110/53 L 129/43 L Pulse Oximetry 97 100 99 Oxygen Delivery Room Air 04/26/22 09:07 04/26/22 08:00 Temperature Pulse Rate 83 Respiratory Rate Blood Pressure Pulse Oximetry Oxygen Delivery Room Air Intake/Output Intake/Output: Intake & Output 04/23/22 04/24/22 04/25/22 04/26/22 23:59 23:59 23:59 23:59 Intake Total 4890 2640 2340 1180 Output Total 1725 1400 Balance 3165 1240 2340 1180 Meds/Results Radiology Results: ITS Impressions Chest X-Ray 04/23/22 07:14 IMPRESSION: 1. No acute cardiopulmonary disease. Labs Labs: Laboratory Results - last 24 hr 04/25/22 04/25/22 04/26/22 16:18 20:45 05:20 WBC 5.7 RBC 2.82 L Hgb 8.4 L Hct 26.7 L MCV 94.7 MCH 29.8 MCHC 31.5 L RDW 16.5 H Plt Count 142 L MPV 9.2 Immature Gran % (Auto) 0.9 H Neut % (Auto) 53.9 Lymph % (Auto) 31.5 [place] % (Auto) 9.4 H Eos % (Auto) 3.8 Baso % (Auto) 0.5 Lymph # (Auto) 1.81 [place] # (Auto) 0.5 Eos # (Auto) 0.2 Baso # (Auto) 0.0 Abs Immat Gran (auto) 0.05 H Absolute Neuts (auto) 3.1 Absolute Nucleated RBC 0.0 Nucleated RBC % 0.0 Sodium Potassium Chloride Carbon Dioxide Anion Gap BUN Creatinine Estim Creat Clear Calc Estimated GFR Glucose POC Capillary Glucose 142 H 246 H Calcium Magnesium Total Bilirubin AST ALT Alkaline Phosphatase Total Protein Albumin 04/26/22 04/26/22 04/26/22 05:20 07:29 08:00 WBC RBC Hgb Hct MCV MCH MCHC RDW Plt Count MPV Immature Gran % (Auto) Neut % (Auto) Lymph % (Auto) [place] % (Auto) Eos % (Auto) Baso % (Auto) Lymph # (Auto) [place] # (Auto) Eos # (Auto) Baso # (Auto) Abs Immat Gran (auto) Absolute Neuts (auto) Absolute Nucleated RBC Nucleated RBC % Sodium 138 Potassium 3.7 Chloride 106 Carbon Dioxide 30 Anio
[2022-04-26 11:17] LABS: Glucose Point of Care 260 mg/dl (65-105)
--- NOTE | 2022-04-26 12:22 | PM.DS ---
DS: Admitting Diagnosis Discharge Date 04/26/2022 Admitting Diagnosis GI bleed DS: Discharge Diagnosis Discharge Diagnosis (1) Hematemesis of fresh blood: Code(s): K92.0 - Hematemesis Status: Acute Assessment and Plan: Patient has Hemoccult-positive stools and emesis with bright red blood. The patient may have developed a stress ulcer given her recent hospitalizations and recent restarting of Plavix. Aspirin and Plavix are on hold. GI consulted PPI b.i.d. status post EGD 04/24/2022 with esophagitis and gastritis on PPI need to hold aspirin and Plavix for 2 weeks Resume aspirin following that 2 weeks. Needed transfusion during hospital stay Follow-up with Cardiology with regard to long-term Plavix need as sounds elevated troponin recent admission would be related to her underlying COPD rather than myocardial infarction (2) Type 2 diabetes mellitus with hyperglycemia, with long-term current use of insulin: Code(s): E11.65 - Type 2 diabetes mellitus with hyperglycemia; Z79.4 - FPC (current) use of insulin Status: Acute Assessment and Plan: The patient has insulin-dependent diabetes mellitus with hyperglycemia. She had significant hyperglycemia on presentation. Glucoses improved after IV insulin and fluids. Currently on high-dose sliding scale insulin q.6 hours will NPO. Will continue hypoglycemia protocol as needed. Adjust insulin and monitor She was hypoglycemic the few times during the hospital stay the she was on lot lower dose of insulin compared to what she takes at home Her 70/30 dose reduced to 20 units in the morning and 20 units in the evening and further titration of the dose as an outpatient basis with her primary care physician (3) Acute anemia: Code(s): D64.9 - Anemia, unspecified Status: Acute Assessment and Plan: The patient has acute on chronic anemia. Although patient did have a hemoglobin of 10 during her ER visit at [place] I suspect the patient's hemoglobin was lower upon discharge from hospital in [place] as she was quite dehydrated when she was in the ER at [place]. Her baseline hemoglobin is not known. Patient has been typed and screened. Will continue to monitor serial H&Hs every 6 hours. Hemoglobin down to 6.4 04/23 status post 2 units check PRBC transfusion H&H remained stable at the time of discharge Recheck in (4) Hyponatremia: Code(s): E87.1 - Hypo-osmolality and hyponatremia Status: Acute Assessment and Plan: The patient's hyponatremia is improved compared to her prior hospitalization. I suspect of pop component of her hyponatremia so due to hyperglycemia. Will continue to monitor. (5) Essential hypertension: Code(s): I10 - Essential (primary) hypertension Status: Acute Assessment and Plan: Resume home medication (6) Hyperkalemia: Code(s): E87.5 - Hyperkalemia Status: Acute Assessment and Plan: Likely due to dehydration Plan Mild lactic acidosis 3.4 on admission resolved with IV resuscitation Coronary artery disease with recent elevated troponin related to COVID pneumonia status post stents in 2010 recently placed back on Plavix. currently aspirin Plavix both on hold due to GI bleed DVT prophylaxis SCDs Code status full code DS: Summary Hospital Course Hospital Course: See above Time Spent with Patient Time attestation: Total time spent providing and/or coordinating discharge services: 50 minutes Exam Narrative: GENERAL: well appearing, not in acute distress HEENT: Nonicteric sclerae, PERRLA, EOMI. Oropharynx clear. Moist mucous membranes. Conjunctivae appear pale CHEST: Chest wall is nontender. HEART: Regular rate and rhythm without murmur, rubs, or gallops LUNGS: Clear to auscultation bilaterally. no respiratory distress ABDOMEN: Soft, positive bowel sounds, non-tender, no organomegaly. SKIN: No rash, no excessive bruising, petechiae,
== END 2022-04-26 14:20 | disposition home health service (06) ==
LOC: ANHED 23:50 → ANHIMU 04-23 02:53 → ANH3MED 04-24 22:19
PROVIDERS: Internal Medicine Gastroenterology; Student in an Organized Health Care Education/Training Program; Admitting Provider Internal Medicine; Emergency Provider General Practice; PCP Internal Medicine; Visit Provider Internal Medicine
PROC: 0DJ08ZZ Inspection of Upper Intestinal Tract, Via Natural or Artificial Opening Endoscopic (ICD-10-PCS; CPT 43235; principal; 2022-04-24 15:00)
DX: K92.0 Hematemesis (principal); K29.50 Unspecified chronic gastritis without bleeding; K22.10 Ulcer of esophagus without bleeding; K25.9 Gastric ulcer, unspecified as acute or chronic, without hemorrhage or perforation; K21.00 Gastro-esophageal reflux disease with esophagitis, without bleeding; K29.80 Duodenitis without bleeding; U07.1 COVID-19; E11.65 Type 2 diabetes mellitus with hyperglycemia; D62 Acute posthemorrhagic anemia; E87.1 Hypo-osmolality and hyponatremia; I10 Essential (primary) hypertension; E87.5 Hyperkalemia; E87.2 Acidosis; E78.5 Hyperlipidemia, unspecified; R55 Syncope and collapse; E86.0 Dehydration; R19.5 Other fecal abnormalities; I25.10 Atherosclerotic heart disease of native coronary artery without angina pectoris; Z95.5 Presence of coronary angioplasty implant and graft; I25.2 Old myocardial infarction; Z90.49 Acquired absence of other specified parts of digestive tract; Z79.82 Long term (current) use of aspirin; Z79.02 Long term (current) use of antithrombotics/antiplatelets; Z79.4 Long term (current) use of insulin; Z79.899 Other long term (current) drug therapy; Z82.49 Family history of ischemic heart disease and other diseases of the circulatory system
CPT/HCPCS: 43239; 36415; 36430; 36600; 51701; 71045; 80048; 80053; 81001; 82010; 82375; 82607; 82728; 82746; 82805; 82948; 83050; 83540; 83550; 83605; 83690; 83735; 84439; 84443; 84480; 85014; 85018; 85025; 85046; 85610; 85730; 86850; 86900; 86901; 86920; 87081; 88305; 93005; 96361; 96365; 96366; 96374; 96375; 96376; 97161; 97165; 99285; A9270; C9113; C9803; G0378; J1815; J2001; J2354; J2405; J2704; J7030; J7040; J7050; J7120; P9016; U0003; U0005

== ENCOUNTER 2022-08-27 02:17 | Day surgery (SDC) | payer MEDICARE, MEDICAID, SELFPAY ==
[2022-08-08 15:40] VITALS: BMI 27.1
[2022-08-27 09:08] LABS: Glucose Point of Care 302 mg/dl (65-105)
[2022-08-27 09:11] VITALS: BP 156/57; PULSE 78; RESP 20; TEMP 36.6; O2SAT 98
--- NOTE | 2022-08-27 09:22 | WPDANESEPPF ---
Anes - Initial Pre Proc Eval Procedure: Operation Date: 08/27/22 10:30 Proposed Procedures p Esophagogastroduodenoscopy EGD - Jaime Cruz MD Date/Time: 08/27/22 09:22 Surgeon: Jaime Cruz MD Pre Op Diagnosis: gastritis, esophagitis, duodenitis Patient Data Age: 67 Gender: F Height: 1.65 m Weight: 74 kg Last Vital Signs Temp 36.6 C 08/27/22 09:11 Pulse 78 08/27/22 09:11 Resp 20 08/27/22 09:11 BP 156/57 H 08/27/22 09:11 Pulse Ox 98 08/27/22 09:11 O2 Del Method Room Air 08/27/22 09:11 Allergies Allergy/AdvReac Type Severity Reaction Status Date / Time cephalexin [Keflex] Allergy Intermediate Hives Verified 08/27/22 09:09 Home Medications Medication Instructions Recorded Confirmed Type atorvastatin 40 mg tablet 40 mg PO DAILY 12/30/19 08/08/22 History multivitamin with minerals-folic 2 tablet PO DAILY 07/18/20 08/08/22 History acid 200 mcg chewable tablet (Women's Multivitamin Gummies) omega 4-mcl-trl-fish oil 1,000 mg 1 cap PO DAILY 07/18/20 08/08/22 History (120 mg-180 mg) capsule (Fish Oil) losartan 100 mg tablet 100 mg PO HS 04/23/22 08/08/22 History metoprolol succinate 100 mg 100 mg PO HS 04/23/22 08/08/22 History tablet,extended release 24 hr nifedipine 60 mg tablet,extended 60 mg PO DAILY 04/23/22 08/08/22 History release nitroglycerin 0.4 mg sublingual 0.4 mg sublingual Q5M PRN Angina 04/23/22 08/08/22 History tablet sucralfate 100 mg/mL oral 1,000 mg (10 mL) PO ACHS #1,000 mL 04/26/22 08/08/22 Rx suspension aspirin 81 mg capsule 81 mg PO DAILY 08/08/22 08/08/22 History insulin human U-100 NPH-regulr 60 unit subcut DAILY 08/08/22 08/08/22 History 70-30 mix 100 unit/mL subcutaneous susp (Humulin 70/30 U-100 Insulin) insulin human U-100 NPH-regulr 60 unit subcut HS 08/08/22 08/08/22 History 70-30 mix 100 unit/mL subcutaneous susp (Humulin 70/30 U-100 Insulin) metoprolol succinate 50 mg 50 mg PO DAILY 08/08/22 08/27/22 History tablet,extended release 24 hr pantoprazole 40 mg tablet,delayed See Rx Instructions .Route 08/26/22 08/27/22 Rx release .COMPLEX #180 tabs Laboratory Tests 08/27/22 09:05 POC Capillary Glucose 302 mg/dl H mg/dl (65-105) Patient hx anesthesia problems: none Family hx anesthesia problems: none Results Review: All pre-operative results and documents have been reviewed as part of the pre-operative evaluation. [facility] Past Medical History Medical History Coronary artery disease (11/04/17) Diabetes mellitus Hyperlipidemia Hypertension Non-STEMI (non-ST elevated myocardial infarction) (04/06/22) Pneumonia due to COVID-19 virus (04/05/22) Ulcer, stomach peptic Surgical History Surgical History History of appendectomy At age 3 S/P coronary artery stent placement (~2010) x2 Family History Family History Other CHF (congestive heart failure) Social History Social History Social History: Code status: Full code Surrogate decision maker: Babatunde Prakash (son) Smoking status: Never smoker Alcohol intake: never Alcohol use details: rare alcohol use only in small amounts Substance use: never Living arrangements: with family Additional living arrangements comments: She lives in her own apartment. Her brother recently moved in with her after he retired. She has 1 son. 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 Gender identity (if verbalized by the patient): Female Spiritual care concerns: No Anes - Eval Final PreProcedure Day of Procedure 08/27/22 09:22 Patient weight: overweight Heart: regular
[2022-08-27] MEDS: LACTATED RINGERS 1,000 ML 150 ML IV CONT (09:23)
--- NOTE | 2022-08-27 09:31 | PM.HPGS ---
History of Present Illness History of Present Illness Consent: Risks, benefits, and alternatives have been discussed and questions answered. Patient agrees to proceed with procedure. Chief complaint: gastritis, esophagitis, duodenitis Narrative: Sujata Prakash is a 67 year old female with ugib, 03/2022 and egd showed gastric ulcers and erosive esophagitis, doing well on ppi Review of Systems Constitutional: Constitutional: Denies headache(s) and Denies weakness Eyes: Eyes: Denies blurry vision ENT: Reports Normal hearing present, Denies headache(s) and Denies neck pain Cardiovascular: Cardiovascular: Denies chest pain and Denies dyspnea Respiratory: Respiratory: Denies dyspnea Gastrointestinal: Gastrointestinal: Reports no additional gastrointestinal complaints Genitourinary: Genitourinary: Denies dysuria Musculoskeletal: Musculoskeletal: Denies neck pain Integumentary/Breasts: Skin/Breast: Denies dry skin Neurologic: Reports Normal hearing present, Denies headache(s) and Denies weakness Psychiatric: Psychiatric: Denies anxiety Endocrine: Endocrine: Denies change in body appearance Hematologic/Lymphatic: Hematologic/Lymphatic: Denies easy bleeding Allergic/Immunologic: Allergic/Immunologic: Denies urticaria PMFSH Past Medical History Medical History Coronary artery disease (11/04/17) Diabetes mellitus Hyperlipidemia Hypertension Non-STEMI (non-ST elevated myocardial infarction) (04/06/22) Pneumonia due to COVID-19 virus (04/05/22) Ulcer, stomach peptic Surgical History Surgical History History of appendectomy At age 3 S/P coronary artery stent placement (~2010) x2 Family History Family History Other CHF (congestive heart failure) Social History Social History Social History: Code status: Full code Surrogate decision maker: Babatunde Prakash (son) Smoking status: Never smoker Alcohol intake: never Alcohol use details: rare alcohol use only in small amounts Substance use: never Living arrangements: with family Additional living arrangements comments: She lives in her own apartment. Her brother recently moved in with her after he retired. She has 1 son. 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 Gender identity (if verbalized by the patient): Female Spiritual care concerns: No Meds Home Medications and Allergies Home Medications Medication Instructions Recorded Confirmed Type atorvastatin 40 mg tablet 40 mg PO DAILY 12/30/19 08/08/22 History multivitamin with minerals-folic 2 tablet PO DAILY 07/18/20 08/08/22 History acid 200 mcg chewable tablet (Women's Multivitamin Gummies) omega 0-wjh-isq-fish oil 1,000 mg 1 cap PO DAILY 07/18/20 08/08/22 History (120 mg-180 mg) capsule (Fish Oil) losartan 100 mg tablet 100 mg PO HS 04/23/22 08/08/22 History metoprolol succinate 100 mg 100 mg PO HS 04/23/22 08/08/22 History tablet,extended release 24 hr nifedipine 60 mg tablet,extended 60 mg PO DAILY 04/23/22 08/08/22 History release nitroglycerin 0.4 mg sublingual 0.4 mg sublingual Q5M PRN Angina 04/23/22 08/08/22 History tablet sucralfate 100 mg/mL oral 1,000 mg (10 mL) PO ACHS #1,000 mL 04/26/22 08/08/22 Rx suspension aspirin 81 mg capsule 81 mg PO DAILY 08/08/22 08/08/22 History insulin human U-100 NPH-regulr 60 unit subcut DAILY 08/08/22 08/08/22 History 70-30 mix 100 unit/mL subcutaneous susp (Humulin 70/30 U-100 Insulin) insulin human U-100 NPH-regulr 60 unit subcut HS 08/08/22 08/08/22 History 70-30 mix 100 unit/mL subcutaneous susp (Humulin 70/30 U-100 Insulin) metoprolol succinate 50 mg 50 mg PO DA
[2022-08-27 09:40] VITALS: BP 129/60; PULSE 64; RESP 23; O2SAT 100
[2022-08-27 09:50] VITALS: BP 144/70; PULSE 69; RESP 22; O2SAT 98
[2022-08-27 09:59] LABS: Glucose Point of Care 366 mg/dl (65-105)
[2022-08-27 10:00] VITALS: BP 162/62; PULSE 68; RESP 20; O2SAT 98
== END 2022-08-27 10:08 | disposition home or self-care (01) ==
PROVIDERS: PCP Internal Medicine; Visit Provider Internal Medicine Gastroenterology
PROC: 0DJ08ZZ Inspection of Upper Intestinal Tract, Via Natural or Artificial Opening Endoscopic (ICD-10-PCS; CPT 43235; principal; 2022-08-27 10:30)
DX: Z09 Encounter for follow-up examination after completed treatment for conditions other than malignant neoplasm (principal); K29.70 Gastritis, unspecified, without bleeding; Z87.11 Personal history of peptic ulcer disease; I10 Essential (primary) hypertension; I25.10 Atherosclerotic heart disease of native coronary artery without angina pectoris; E11.9 Type 2 diabetes mellitus without complications; E78.5 Hyperlipidemia, unspecified; I25.2 Old myocardial infarction; Z95.5 Presence of coronary angioplasty implant and graft; Z79.82 Long term (current) use of aspirin; Z79.4 Long term (current) use of insulin
CPT/HCPCS: 43235; 82948; J2704; J7120

== ENCOUNTER 2023-06-11 10:09 | Outpatient (CLI) | payer MEDICARE, MEDICAID, SELFPAY ==
--- NOTE | ~2023-06-11 | US_ITS ---
EXAMINATION: US carotid duplex BI DATE: 06/11/2023 10:36 INDICATION: Dizziness TECHNIQUE: Grayscale, color Doppler, and pulsed Doppler images of the cervical carotid arteries were obtained. The degree of vessel stenosis is placed in one of the following categories: normal, <50%, 5 0-69%, >=70% but less than near-occlusion, near-occlusion, or total occlusion. Note that percent sten osis relative to normal distal artery lumen diameter is indirectly measured from velocity measurement s as described by Cecil, et al. Radiology 2003; 229:340-346. Notes: Normal: Peak systolic velocity <125 centimeters/sec and no plaque <50%. Peak systolic velocity <125 ( EDV <40; ICA/CCA PSV ratio <2.0; used these factors only a tandem lesions or low cardiac output or co ntralateral disease) 50-69 %: PSV 125-230 (EDV 40-100; ratio 2-4) >= 70% but less than near occlusion: PSV greater than 230 (EDV > 100; ratio> 4.0) Near Occlusion: PSV that is variable; markedly narrowed lumen Occlusion: Absent flow on color/spectral Doppler and no lumen on mcclellan scale. COMPARISON: None. FINDINGS: RIGHT: The right common carotid artery (CCA) peak systolic velocity (PSV) is 79 cm/s. The right internal car otid artery (ICA) PSV is 83 cm/s. The right ICA end-diastolic velocity (EDV) is 28 cm/s. The right IC A/CCA PSV ratio is 1.0. The external carotid artery (ECA) PSV is 134 cm/s. There is antegrade flow in the right vertebral artery. LEFT: The left CCA PSV is 84 cm/s. The left ICA PSV is 108 cm/s. The left ICA EDV is 32 cm/s. The left ICA/ CCA PSV ratio is 1.3. The ECA PSV is 118 cm/s. There is antegrade flow in the left vertebral artery. IMPRESSION: 1. Less than 50% stenosis in the right internal carotid artery by sonographic criteria. 2. Less than 50% stenosis in the left internal carotid artery by sonographic criteria. Reviewed, dictated and finalized at location B. IMPRESSION: 1. Less than 50% stenosis in the right internal carotid artery by sonographic amaury mahajan. 2. Less than 50% stenosis in the left internal carotid artery by sonographic veena morton.
== END 2023-06-11 10:10 | disposition home or self-care (01) ==
LOC: CHSIMG 10:12
PROVIDERS: PCP Internal Medicine; Visit Provider Internal Medicine
DX: I25.10 Atherosclerotic heart disease of native coronary artery without angina pectoris (principal); R42 Dizziness and giddiness; I65.23 Occlusion and stenosis of bilateral carotid arteries
CPT/HCPCS: 93880

== ENCOUNTER 2024-04-06 08:44 | Emergency (ER) | payer MEDICARE, MEDICAID, SELFPAY ==
[2024-04-06] VITALS (70 sets, daily range): BP systolic 120–173; BP diastolic 40–117; PULSE 14–93; RESP 11–24; TEMP 36.4–36.7; O2SAT 92–99
[2024-04-06 08:51] LABS: Glucose Point of Care 252 mg/dl (65-105)
--- NOTE | 2024-04-06 09:21 | ECG_ITS ---
Test Date: 2024-04-06 09:18:10 Measurements Intervals [place] Rate: 78 P: 70 [place]: 150 QRS: 77 QRSD: 90 T: 81 QT: 368 QTc: 419 Interpretive Statements SINUS RHYTHM BORDERLINE ST-T WAVE ABNORMALITY- DIFFUSE LEADS BASELINE WANDER- II, III, AVL, AVF BORDERLINE ECG No previous ECG available for comparison Electronically Signed On 04-06-2024 09:25:30 CDT by Ricki Torrez D.O.
--- NOTE | 2024-04-06 09:24 | ECG_ITS ---
Test Date: 2024-04-06 15:53:15 Measurements Intervals [place] Rate: 82 P: 68 MD: 137 QRS: 72 QRSD: 90 T: 79 QT: 353 QTc: 414 Interpretive Statements SINUS RHYTHM NONSPECIFIC ST & T-WAVE ABNORMALITY- INF/LAT LEADS BASELINE ARTIFACT- I, II, III BORDERLINE ECG Compared to ECG 04/06/2024 09:18:10 NO SIGNIFICANT CHANGE Electronically Signed On 04-06-2024 18:37:32 CDT by Ricki Torrez D.O.
--- NOTE | 2024-04-06 09:26 | ED.DIZZY ---
HPI - Dizziness General Chief Complaint: Dizziness Stated Complaint: dizziness Time Seen by Provider: 04/06/24 09:22 History of Present Illness HPI Narrative: 68-year-old white female with history of type 2 diabetes, hypertension, coronary artery disease, 2 previous stents, last 1 in 2010, reports that she had got up this morning, had a bowl of cereal and 2 cups of coffee, and then went to stand up, got a little lightheaded, dizzy, walked a few steps over to a bed and sat on the edge of it, and stayed there for a few minutes while the sensation gradually cleared. There was no vertigo, did not feel that it the lightheadedness got enough to where she was at risk of passing out, had no chest pain, palpitations, shortness of breath, abdominal pain, nausea or vomiting, diarrhea or constipation, has noted a little bit of increased urinary frequency, but no dysuria or urgency. She has had some vaginal itching for the last 4 5 days, has tried some vaginosis so but that has not helped. She has had no recent fever, chills, sinus drainage. Related Data Home Medications Medication Instructions Recorded Confirmed losartan 100 mg tablet 100 mg PO HS 04/23/22 04/06/24 metoprolol succinate 100 mg 100 mg PO HS 04/23/22 04/06/24 tablet,extended release 24 hr nifedipine 60 mg tablet,extended 60 mg PO DAILY 04/23/22 04/06/24 release aspirin 81 mg capsule 81 mg PO DAILY 08/08/22 04/06/24 insulin human U-100 NPH-regulr 70 unit subcut HS 08/08/22 04/06/24 70-30 mix 100 unit/mL subcutaneous susp (Humulin 70/30 U-100 Insulin) insulin human U-100 NPH-regulr 70 unit subcut QA 08/08/22 04/06/24 70-30 mix 100 unit/mL subcutaneous susp (Humulin 70/30 U-100 Insulin) pioglitazone 15 mg tablet 15 mg PO DAILY 04/06/24 04/06/24 rosuvastatin 20 mg tablet 20 mg PO DAILY 04/06/24 04/06/24 sucralfate 100 mg/mL oral 10 ml PO ACHS 04/06/24 04/06/24 suspension Allergies Allergy/AdvReac Type Severity Reaction Status Date / Time cephalexin [Keflex] Allergy Intermediate Hives Verified 04/06/24 08:50 Review of Systems Review of Systems: All systems reviewed & are unremarkable except as noted in HPI and below PMFSH Past Medical History Medical History Coronary artery disease (11/04/17) Diabetes mellitus Hyperlipidemia Hypertension Non-STEMI (non-ST elevated myocardial infarction) (04/06/22) Pneumonia due to COVID-19 virus (04/05/22) Ulcer, stomach peptic Surgical History Surgical History History of appendectomy At age 3 S/P coronary artery stent placement (~2010) x2 Family History Family History Other CHF (congestive heart failure) Social History Social History Social History: Code status: Full code Surrogate decision maker: Babatunde Prakash (son) Smoking status: Never smoker Alcohol intake: never Alcohol use details: rare alcohol use only in small amounts Substance use: never Living arrangements: with family Additional living arrangements comments: She lives in her own apartment. Her brother recently moved in with her after he retired. She has 1 son. 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 Gender identity (if verbalized by the patient): Female Spiritual care concerns: No Exam Narrative: pleasant, well-appearing, appropriately interactive, no acute distress Const: General: cooperative, healthy appearing, comfortable, no acute distress, well developed, alert, awake and Physically active Orientation/consciousness: patient oriented x3 HENMT: Head: normal to inspection, normocephalic and atraumatic Ears: hearing grossly normal b
[2024-04-06] MEDS: LACTATED RINGERS 500 ML 999 ML IV CONT (09:39)
[2024-04-06 09:40] LABS: Basophils Absolute Auto 0.06 K/mm3 (0.00-0.10); Basophils Percent Auto 0.7 % (0.0-1.0); Eosinophils Absolute Auto 0.27 K/mm3 (0.02-0.50); Hematocrit 37.4 % (35.0-42.0); Hemoglobin 12.6 g/dL (11.7-13.8); Immature Granulocyte Absolute 0.07 K/mm3 (0.00-0.00); Immature Granulocyte Percent A 0.8 % (0.0-0.0); Lymphocytes Absolute Auto 2.21 K/mm3 (1.10-4.50); Lymphocytes Percent Auto 24.8 % (18.0-42.0); Mean Corpuscular HGB Conc 33.7 g/dL (32-36); Mean Corpuscular Hemoglobin 30.6 pg (27.0-31.0); Mean Corpuscular Volume 90.8 fL (78.0-102.0); Mean Platelet Volume 10.6 fl (9.2-11.8); Monocytes Absolute Auto 0.65 K/mm3 (0.10-0.90); Monocytes Percent Auto 7.3 % (2.0-11.0); Neutrophils Absolute Auto 5.64 K/mm3 (1.70-7.20); Neutrophils Percent Auto 63.4 % (50.0-70.0); Platelet Count Result 212 K/mm3 (150-420); Red Blood Count 4.12 M/mm3 (4.20-5.40); Red Cell Distribution Width 13.7 % (11.6-14.4); White Blood Count 8.9 K/mm3 (4.8-10.8)
[2024-04-06 10:00] LABS: Alanine Aminotransferase 9 U/L (14-59); Albumin Level 3.3 g/dL (3.4-5.0); Alkaline Phosphatase 61 U/L (46-116); Anion Gap 10 mmol/L (4-12); Aspartate Amino Transferase < 10 U/L (15-37); Bilirubin,Total 0.5 mg/dL (0.00-1.00); Blood Urea Nitrogen 13 mg/dL (7-18); Calcium 9.4 mg/dL (8.5-10.1); Carbon Dioxide 26 mmol/L (21-32); Chloride 100 mmol/L (98-108); Estimated CRCL calculation 60 ml/min; Estimated Glomerular Filt Rate > 60; Glucose 256 mg/dL (70-99); Osmolality Calculated 291 mOsm/kg (285-295); Potassium 4.2 mmol/L (3.5-5.1); Sodium 136 mmol/L (136-145); Total Protein 7.7 g/dL (6.4-8.2)
[2024-04-06 10:01] LABS: Hemoglobin A1C 7.2 % (<5.7)
[2024-04-06 10:03] LABS: Troponin I 87.8 ng/L (0.00-60.4)
[2024-04-06 10:09] LABS: Appearance Urine Clear (Clear); Bilirubin Urine Negative (Negative); Blood Urine Trace-intact (Negative); Color Urine Light Yellow (Yellow); Glucose Urine UA 1+ (Negative); Ketones Urine Negative (Negative); Leukocyte Esterase Ur 1+ LEU/UL (Negative); Nitrate Urine Negative (Negative); Protein Urine 2+ (Negative); Urobilinogen Urine 0.2 mg/dL (0.2-1.0)
[2024-04-06 10:20] LABS: Add Urine Microscopic? YES; Bacteria Urine 1+ /hpf; RBC Urine 0-2 /hpf (0-2); Squamous Epithelial Cell Urine Moderate /hpf (Few); WBC Urine 0-5 /hpf (0-3)
[2024-04-06 12:47] LABS: Troponin I 618.1 ng/L (0.00-60.4)
[2024-04-06] MEDS: ASPIRIN 81 MG CHEWABLE TABLET 324 MG PO (13:51)
[2024-04-06 16:06] LABS: Troponin I 1947.4 ng/L (0.00-60.4)
[2024-04-06 17:59] LABS: Glucose Point of Care 150 mg/dl (65-105)
== END 2024-04-06 16:32 | disposition short-term general hospital (02) ==
PROVIDERS: Emergency Provider Emergency Medicine; PCP Internal Medicine
DX: I21.4 Non-ST elevation (NSTEMI) myocardial infarction (principal); E11.59 Type 2 diabetes mellitus with other circulatory complications; I10 Essential (primary) hypertension; I25.10 Atherosclerotic heart disease of native coronary artery without angina pectoris; E78.5 Hyperlipidemia, unspecified; I25.2 Old myocardial infarction; Z79.4 Long term (current) use of insulin; Z79.82 Long term (current) use of aspirin
CPT/HCPCS: 36415; 80053; 81001; 82948; 83036; 84484; 85025; 87077; 87086; 87088; 93005; 96360; 99285; A9270; J7120

== ENCOUNTER 2024-04-06 14:45 | Observation (INO) | payer MEDICARE, MEDICAID, SELFPAY ==
[2024-04-06] VITALS (7 sets, daily range): BP systolic 159–180; BP diastolic 52–72; PULSE 75–90; RESP 18–20; TEMP 36–36.6; O2SAT 97–99; BMI 29.9
--- NOTE | 2024-04-06 17:27 | PC.NURSE ---
This patient, Sujata Prakash, was admitted to IMU Room 201-01 at 17:13. Patient/family oriented to hospital policies and general routines including ID bracelet, bed and alarms, visiting hours, pain management, procedures, bathroom and other care routines, personal items, smoking policy, room service/diet, and visiting hours. Information on how to activate the Rapid Response Team has been discussed. Patient/Family are encouraged to report perceived risks to care and to ask questions if they do not understand what they are told or what they should do.
--- NOTE | 2024-04-06 19:17 | PM.IMHP ---
H&P: HPI History of Present Illness Date/Time: 04/06/24 19:17 Chief Complaint: Dizziness and shortness of breath Narrative: Patient is a 68-year-old female who came to the hospital complaining of dizziness. Patient has past medical history of type 2 diabetes, hypertension, coronary artery disease status post 2 stents last 1 done in 2010. History of hypertension and hyperlipidemia. She got up this morning had some coffee and cupcake but cereal that she started feeling some lightheadedness as she moved 2 steps forward. Patient denied any chest pain no nausea no vomiting no diarrhea and no rectal bleed no hematemesis hemoptysis no urgency frequency of urination no vaginal bleed. Patient has history of GI bleeds in the past currently very compliant with medication follows her primary care physician routinely. At bedtime patient is fully alert awake very hungry eating her dinner denies any complaints Review of Systems Review of Systems: No fevers chills nausea vomiting. No double vision no blurry vision. No difficulty hearing or sinus complaints. No chest pain shortness of breath fever palpitation dizziness ankle swelling. No coughing wheezing chills. No nausea constipation diarrhea abdominal pain reflux. No urgency frequency of urination. No hematuria. No skin rash eczema. No anxiety depression difficulty sleeping. No bleeding gums enlarged glands. No muscle ache back pain joint stiffness. No loss of strength numbness headache tremor or loss of memory. [facility] Past Medical History Medical History Coronary artery disease (11/04/17) Diabetes mellitus Hyperlipidemia Hypertension Non-STEMI (non-ST elevated myocardial infarction) (04/06/22) Pneumonia due to COVID-19 virus (04/05/22) Ulcer, stomach peptic Surgical History Surgical History History of appendectomy At age 3 S/P coronary artery stent placement (~2010) x2 Family History Family History Other CHF (congestive heart failure) Social History Social History Social History: Code status: Full code Surrogate decision maker: Babatunde Prakash (son) Smoking status: Never smoker Alcohol intake: never Alcohol use details: rare alcohol use only in small amounts Substance use: never Do You Feel Safe in your Home?: Yes Lack of Transportation: No Lack of Food: Never True Current Housing: I Have Housing Concerned About Future Housing: No Difficulty Paying Gas/Electric Bills: No Difficulty Paying for Meds: No Currently Unemployed: No Education: Decline to Answer Difficulty w/ Childcare or Family Care: No Living arrangements: with family Additional living arrangements comments: She lives in her own apartment. Her brother recently moved in with her after he retired. She has 1 son. 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 Gender identity (if verbalized by the patient): Female Spiritual care concerns: No Meds Home Medications and Allergies Home Medications Medication Instructions Recorded Confirmed Type losartan 100 mg tablet 100 mg PO 04/23/22 04/06/24 History metoprolol succinate 100 mg 100 mg PO HS 04/23/22 04/06/24 History tablet,extended release 24 hr nifedipine 60 mg tablet,extended 60 mg PO DAILY 04/23/22 04/06/24 History release aspirin 81 mg capsule 81 mg PO DAILY 08/08/22 04/06/24 History insulin human U-100 NPH-regulr 70 unit subcut 08/08/22 04/06/24 History 70-30 mix 100 unit/mL subcutaneous susp (Humulin 70/30 U-100 Insulin) insulin human U-100 NPH-regulr 70 unit subcut [facility] 08/08/22 04/06/24 History 68
[2024-04-06 19:46] LABS: Hematocrit 39.3 % (37.0-47.0); Hemoglobin 12.6 g/dL (12.0-15.0); Mean Corpuscular HGB Conc 32.1 g/dl (32-36); Mean Corpuscular Hemoglobin 29.5 pg (26-34); Mean Platelet Volume 10.5 fl (7.4-10.4); Platelet Count Result 229 k/mm3 (150-375); Red Blood Count 4.27 M/mm3 (4.2-5.4); Red Cell Distribution Width 13.8 % (11.5-14.5); White Blood Count 10.9 K/mm3 (4.5-10.0)
[2024-04-06 19:56] LABS: Alanine Aminotransferase 17 U/L (6-35); Albumin Level 4.4 g/dL (3.5-5.1); Alkaline Phosphatase 69 U/L (38-126); Anion Gap 11 mmol/L (4-12); Aspartate Amino Transferase 32 U/L (14-36); Bilirubin,Total 0.9 mg/dL (0.2-1.3); Blood Urea Nitrogen 16 mg/dL (7-17); Calcium 9.5 mg/dL (8.4-10.2); Carbon Dioxide 27 mmol/L (22-30); Chloride 101 mmol/L (98-107); Cholesterol 167 mg/dL (0-200); Estimated CRCL calculation 60 ml/min; Estimated Glomerular Filt Rate > 60; Glucose 225 mg/dL (65-110); HDL Direct 47 mg/dL; Potassium 4.4 mmol/L (3.4-5.0); Sodium 139 mmol/L (137-145); Triglycerides 218 mg/dL (<150)
[2024-04-06 20:08] LABS: LDL Cholesterol Direct 74 mg/dL
[2024-04-06 20:15] LABS: Glucose Point of Care 256 mg/dl (65-105)
[2024-04-06] MEDS: INSULIN HUMAN ISOPHAN/REGULAR 70/30 (*BKC) 100 UNITS/ML 70 UNITS SUB-Q (21:10)
[2024-04-06] MEDS: LOSARTAN POTASSIUM 100 MG TABLET PO (21:11)
[2024-04-06] MEDS: SUCRALFATE SUSP 100 MG/ML 10 ML UDC 1000 MG PO (21:12)
[2024-04-06] MEDS: METOPROLOL SUCCINATE EXT REL 100 MG TABCR PO (21:12)
[2024-04-06] MEDS: PANTOPRAZOLE 40 MG TABLET PO (21:12)
[2024-04-07] VITALS (16 sets, daily range): BP systolic 146–173; BP diastolic 45–69; PULSE 65–99; RESP 12–18; TEMP 36.6–37.2; O2SAT 95–98
--- NOTE | 2024-04-07 | ECHO_ITS ---
Patient Info Name: Sujata Prakash Age: 68 years : 1955 Gender: Female Ht: 65 in Wt: 179 lbs BSA: 1.95 m2 HR: 70 bpm BP: 146 / 67 mmHg Heart Rhythm: Sinus Rhythm Technical Quality: Fair Exam Date: 04/07/2024 7:34 AM Exam Location: Echo Lab Patient Status: Outpatient Admit Date: 04/06/2024 Staff Ordering Physician: Vasile Jarquin MD Dog Show Judge: Tamara Parr RDCS Attending Provider: Ovidio Calero MD Exam Type: CA echo dop color flow w con Study Info Indications - CHF Complete two-dimensional, color flow and Doppler transthoracic echocardiogram is performed with contrast to opacify the left ventricle and to improve the deliniation of the left ventricle endocardial borders. Contrast/Agitated Saline Contrast/Ag. Saline: Definity Amount: 2.00 ml Administered By: Tamara Parr RDCS Existing IV Access: Yes IV Access Condition: patent with no signs of infiltration Summary 1. Left ventricular chamber dimension is normal. 2. Left ventricular systolic function is normal, estimated at 65-70%. 3. There is moderate asymmetric septal increased left ventricular wall thickness. 4. The left ventricular diastolic function is grade II diastolic dysfunction. 5. Left atrial chamber dimension is mildly enlarged. 6. The mitral valve has thickened leaflets and calcified leaflets. 7. There is mild mitral valve regurgitation. 8. There is mild tricuspid valve regurgitation. 9. Moderate pulmonary hypertension, estimated pulmonary arterial systolic pressure is 49 mmHg. 10. There is mild pulmonic regurgitation. Left Ventricle Left ventricular chamber dimension is normal. Left ventricular systolic function is normal, estimated at 65-70%. There is moderate asymmetric septal increased left ventricular wall thickness. The left ventricular diastolic function is grade II diastolic dysfunction. Right Ventricle Right ventricular chamber dimension is normal. Right ventricular systolic function is normal. Left Atria Left atrial chamber dimension is mildly enlarged. Right Atria Right atrial chamber dimension is normal. Atrial Septum Intact interatrial septum visualized by color flow imaging. Aortic Valve The aortic valve is trileaflet. There is mild aortic valve sclerosis. There is no aortic valve stenosis. There is trace aortic valve regurgitation. Pulmonic Valve The pulmonic valve is normal. There is no pulmonic valve stenosis. There is mild pulmonic regurgitation. Mitral Valve The mitral valve has thickened leaflets and calcified leaflets. There is no mitral valve stenosis. There is mild mitral valve regurgitation. Tricuspid Valve The tricuspid valve leaflets are normal. There is no significant tricuspid valve stenosis. There is mild tricuspid valve regurgitation. Moderate pulmonary hypertension, estimated pulmonary arterial systolic pressure is 49 mmHg. Pericardium/Pleural The pericardium appears normal. There is trivial pericardial effusion. Inferior Vena Cava Normal inferior vena cava with >50% collapse upon inspiration consistent with normal right atrial pressure, 10 mmHg. Aorta The aortic root size at the sinus of Valsalva is normal. Left Ventricular Outflow Tract Name Value Normal LVOT 2D LVOT Diameter 1.88
[2024-04-07] MEDS: SUCRALFATE SUSP 100 MG/ML 10 ML UDC 1000 MG PO ×4 (05:59→20:22)
[2024-04-07 06:24] LABS: Glucose Point of Care 80 mg/dl (65-105)
[2024-04-07] MEDS: PERFLUTREN LIPID MICROSPHERES 1.5 ML VIAL DILUTED TO 10 ML TOTAL VOLUME IV PUSH (07:37)
[2024-04-07 08:36] LABS: Glucose Point of Care 97 mg/dl (65-105)
[2024-04-07] MEDS: NIFEdipine 30 MG TAB.ER.24 60 MG PO (09:12)
[2024-04-07] MEDS: ASPIRIN 81 MG ENTERIC TABLET PO (09:12)
[2024-04-07] MEDS: ROSUVASTATIN 20 MG TABLET PO (09:12)
[2024-04-07] MEDS: PANTOPRAZOLE 40 MG TABLET PO ×2 (09:12→20:22)
--- NOTE | 2024-04-07 10:26 | IVDEFINITY ---
Prior to administration of IV Definity the patient was educated on the risks and benefits of the imaging enhancing agent including potential adverse side effects. The patient verbalized understanding. Allergies were verified. No exclusion criteria were identified and at least one of the following inclusion criteria were met: 1) physician request, 2) patient technically difficult to image (per the [place] Society of Echocardiography guidelines of two or more segments not discernable within the apical view), or 3) questionable left ventricular function. ?
[2024-04-07 11:02] LABS: Troponin I 0.832 ng/mL (0.000-0.034)
--- NOTE | 2024-04-07 11:38 | PM.CNCAR ---
Assessment and Plan Assessment and plan (1) Non-STEMI (non-ST elevated myocardial infarction): Onset Date: 04/06/22 Code(s): I21.4 - Non-ST elevation (NSTEMI) myocardial infarction Status: Acute Assessment and Plan: EKGs show sinus rhythm, nonspecific STTW abnormality. No ischemic changes. Unable to compare to previous EKGs. Her first troponin at [facility] was elevated at 87.8 [0-60], with repeat at 618, and third troponin at 1947. Troponin here 1.830, followed by 0.832. Telemetry without any arrhythmias. Her troponin levels are lower this admission than when she was last here in March 2022 for acute on chronic anemia, GI bleed. No chest pain whatsoever. Had an episode of dizziness that lasted for about an hour. No other associated symptoms. Feeling well now without recurrence in symptoms. Unclear if this is an acute coronary syndrome. Her symptoms could have possibly been from an arrhythmia as well. At this time, will obtain transthoracic echocardiogram. Continue tele monitoring. Check TSH level. Further recommendations and plan pending results of echocardiogram. May need an event monitor at time of discharge if workup otherwise negative. Patient's primary sheet metal helper is Dr. Akiko Hastings with [facility]. She will need to follow up with Dr. Hastings after hospital discharge. (2) Coronary artery disease: Onset Date: 11/04/17 Code(s): I25.10 - Atherosclerotic heart disease of elim ira coronary artery without angina pectoris Status: Acute Assessment and Plan: Continue ASA, statin, beta migdalia. (3) Essential hypertension: Code(s): I10 - Essential (primary) hypertension Status: Acute Assessment and Plan: Continue Losartan, Toprol, Nifedipine. (4) Hyperlipidemia: Code(s): E78.5 - Hyperlipidemia, unspecified Status: Acute Assessment and Plan: Continue Rosuvastatin. (5) Type 2 diabetes mellitus with hyperglycemia, with long-term current use of insulin: Code(s): E11.65 - Type 2 diabetes mellitus with hyperglycemia; Z79.4 - halfway (current) use of insulin Status: Acute Assessment and Plan: Management as per primary team. Plan Recommendations and plan discussed with Hospitalist. History of Present Illness History of Present Illness Consult date/time: 04/07/24 11:38 Requesting physician: Vasile Jarquin MD Consult reason: Other (Elevated troponin) Reason For Visit: NSTEMI Narrative: We are consulted for elevated troponin. This is a pleasant 68 year old female with coronary artery disease s/p two prior stents in 2010, type 2 diabetes mellitus, hypertension, hyperlipidemia, history of GI bleed in 03/2022 who was transferred from [facility] for elevated troponin levels. Patient states she was feeling well and in her usual state of health until she got sudden onset of dizziness yesterday morning. Occurred shortly after eating breakfast. Ate Rice Krispy cereal, which is her normal breakfast. Patient states the dizziness felt like she had partied too much. No chest pain, shortness of breathy, or other associated symptoms. Lasted for about an hour and then resolved. [place] better when she got IVFs in the ED. EKGs on admission show sinus rhythm, nonspecific STTW abnormality. No ischemic changes. Unable to compare to previous EKGs. Her first troponin at [facility] was elevated at 87.8 [0-60], with repeat at 618, and third troponin at 1947. Patient's primary sheet metal helper is Dr. Akiko Hastings with [facility]. [facility] initially tried to transfer patient there, however, they were at capacity. Patient therefore transferred to [place]. Patient remains chest pain free here and has had no recurrences in her dizziness. Ambulating about her room without issue. Troponin here 1.830, followed by 0.832. Telemetry without any arrhythmias. Review of Systems Review of Systems: All systems reviewed & are unremarkable exc
[2024-04-07] MEDS: SENNOSIDES 8.6 MG TABLET PO (11:39)
[2024-04-07 11:57] LABS: Glucose Point of Care 223 mg/dl (65-105)
[2024-04-07 15:49] LABS: Glucose Point of Care 255 mg/dl (65-105)
--- NOTE | 2024-04-07 16:41 | WPDPN ---
Progress Note: A&P Assessment and Plan (1) Non-ST elevated myocardial infarction (non-STEMI): Code(s): I21.4 - Non-ST elevation (NSTEMI) myocardial infarction Status: Inactive (2) Coronary artery disease: Onset Date: 11/04/17 Code(s): I25.10 - Atherosclerotic heart disease of [place] coronary artery without angina pectoris Status: Acute (3) Essential hypertension: Code(s): I10 - Essential (primary) hypertension Status: Acute (4) Type 2 diabetes mellitus with hyperglycemia, with long-term current use of insulin: Code(s): E11.65 - Type 2 diabetes mellitus with hyperglycemia; Z79.4 - group home (current) use of insulin Status: Acute (5) Ulcer, stomach peptic: Code(s): K25.9 - Gastric ulcer, unspecified as acute or chronic, without hemorrhage or perforation Status: Acute Plan CAD/non STEMI/chest pain -patient's symptoms are typical chest pain with worse on exertion, concerning for ACS -elevated troponins will continue trending troponins Will avoid anticoagulation for right now due to history of GI bleed -continue telemetry, EKG showed may be early repolarization -cardiology consulted -prn Nitroglycerin, oxygen, morphine, aspirin -checking lipid panel DM Optimize medications insulin 70 /30 Routine glucose monitoring. Watch for Hypoglycemia. Watch for peripheral neuropathy Encouraged lower extremity and foot care BMI goal < 25 LDL goal <80 1800 ADA diet Lifestyle modification HB A1c levels 7.2 Antiplatelet therapy with aspirin GERD History of peptic ulcer disease and GI bleed 2 years ago Continue Protonix and Carafate Watch for dysphagia and sudden weight loss Monitor H&H routinely. Stool for occult blood if needed Discussed the etiology of GERD with patient. Encouraged lifestyle changes and the need for a lifelong regimen of medications to help reduce symptoms. Discussed the potential for serious complications if symptoms are not resolved. Discussed raising the head of the bed 4 to 6 inches; avoiding chocolate, coffee, peppermint, fruit juices, tomatoes, greasy and spicy foods. Encouraged moderation of alcoholic beverages if you drink routinely and avoidance of smoking.if a smoker History of hypertension. Continue losartan, metoprolol History of hyperlipidemia. Continue Crestor. DVT prophylaxis. SCDs will avoid any anticoagulation due to previous history of peptic ulcer disease and GI bleed GI prophylaxis. Protonix All records reviewed Discussed plan of care with the nursing staff and with the patient in detail. Answered all questions and concerns from the patient. All labs have been reviewed. 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 dictation may have been done utilizing a voice recognition system. Attempts have been made to correct errors. However, there may be uncorrected grammatical, spelling, and recognition errors present. 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 Review of Systems Review of Systems: No fevers chills nausea vomiting. No double vision no blurry vision.
[2024-04-07 19:37] LABS: Alanine Aminotransferase 17 U/L (6-35); Albumin Level 4.7 g/dL (3.5-5.1); Alkaline Phosphatase 73 U/L (38-126); Anion Gap 13 mmol/L (4-12); Aspartate Amino Transferase 29 U/L (14-36); Bilirubin,Total 0.9 mg/dL (0.2-1.3); Blood Urea Nitrogen 19 mg/dL (7-17); Calcium 9.5 mg/dL (8.4-10.2); Carbon Dioxide 26 mmol/L (22-30); Chloride 98 mmol/L (98-107); Estimated CRCL calculation 45 ml/min; Estimated Glomerular Filt Rate 49; Glucose 323 mg/dL (65-110); Potassium 4.5 mmol/L (3.4-5.0); Sodium 137 mmol/L (137-145)
[2024-04-07] MEDS: INSULIN HUMAN ISOPHAN/REGULAR 70/30 (*BKC) 100 UNITS/ML 70 UNITS SUB-Q (20:22)
[2024-04-07] MEDS: LOSARTAN POTASSIUM 100 MG TABLET PO (20:22)
[2024-04-07] MEDS: METOPROLOL SUCCINATE EXT REL 100 MG TABCR PO (20:22)
[2024-04-07 20:29] LABS: Glucose Point of Care 319 mg/dl (65-105)
[2024-04-07 20:37] LABS: Hemoglobin A1C 7.3 % (<5.7)
[2024-04-08] VITALS (32 sets, daily range): BP systolic 118–178; BP diastolic 44–110; PULSE 66–99; RESP 14–26; TEMP 36.2–37; O2SAT 92–100
[2024-04-08 00:33] LABS: Glucose Point of Care 129 mg/dl (65-105)
[2024-04-08] MEDS: SUCRALFATE SUSP 100 MG/ML 10 ML UDC 1000 MG PO ×4 (05:49→20:14)
[2024-04-08 08:20] LABS: Glucose Point of Care 84 mg/dl (65-105)
--- NOTE | 2024-04-08 08:39 | PM.PNCARD ---
Progress Note: A&P Assessment and Plan (1) Non-STEMI (non-ST elevated myocardial infarction): Onset Date: 04/06/22 Code(s): I21.4 - Non-ST elevation (NSTEMI) myocardial infarction Status: Acute Assessment and Plan: EKGs show sinus rhythm, nonspecific STTW abnormality. No ischemic changes. Unable to compare to previous EKGs. Her first troponin at [facility], [place] was elevated at 87.8 [0-60], with repeat at 618, and third troponin at 1947. Troponin here 1.830, followed by 0.832. Telemetry without any arrhythmias. Her troponin levels are lower this admission than when she was last here in March 2022 for acute on chronic anemia, GI bleed. No chest pain whatsoever. Had an episode of dizziness that lasted for about an hour. No other associated symptoms. Feeling well now without recurrence in symptoms. Unclear if this is an acute coronary syndrome. Her symptoms could have possibly been from an arrhythmia as well. Echocardiogram unremarkable. As there is no alternate explanation for her rise in troponin at this point, will proceed with [facility] this afternoon. Patient understands and is in agreement. Patient's primary manager advertising is Dr. Akiko Hastings with [facility]. She will need to follow up with Dr. Hastings after hospital discharge. (2) Coronary artery disease: Onset Date: 11/04/17 Code(s): I25.10 - Atherosclerotic heart disease of [place] coronary artery without angina pectoris Status: Acute Assessment and Plan: Continue ASA, statin, beta migdalia. (3) Essential hypertension: Code(s): I10 - Essential (primary) hypertension Status: Acute Assessment and Plan: Continue Losartan, Toprol, Nifedipine. (4) Hyperlipidemia: Code(s): E78.5 - Hyperlipidemia, unspecified Status: Acute Assessment and Plan: Continue Rosuvastatin. (5) Type 2 diabetes mellitus with hyperglycemia, with long-term current use of insulin: Code(s): E11.65 - Type 2 diabetes mellitus with hyperglycemia; Z79.4 - halfway (current) use of insulin Status: Acute Assessment and Plan: Management as per primary team. Subjective Date/time seen: 04/08/24 08:39 Interval history: Cardiology follow up for elevated troponin Date of service 04/08/2024: She's feeling well this morning and has no complaints. Review of Systems Review of Systems: All systems reviewed & are unremarkable except as noted in HPI and below (HPI) Exam Const: General: comfortable and no acute distress Eyes: General: appearance normal, both eyes and all related structures Sclera: sclerae normal Neck: Neck: supple Resp: Effort & Inspection: normal respiratory effort Auscultation: clear to auscultation bilaterally Cardio: Rate: regular rate Rhythm: regular rhythm Heart sounds: no murmurs Skin: General skin exam: normal color Neuro: Speech: normal speech Psych: Mental Status: mental status grossly normal Affect: normal affect Objective Data Vital Signs Vital Signs: Vital Signs - 24 hr 04/07/24 10:00 04/07/24 12:00 04/07/24 12:00 Temperature 37.2 C Pulse Rate 80 66 Respiratory Rate 12 Blood Pressure 159/69 H Pulse Oximetry 98 Oxygen Delivery Room Air 04/07/24 12:00 04/07/24 14:00 04/07/24 15:59 Temperature 37.2 C Pulse Rate 87 82 98 Respiratory Rate 16 Blood Pressure 173/45 H Pulse Oximetry 98 Oxygen Delivery 04/07/24 16:00 04/07/24 16:00 04/07/24 18:00 Temperature Pulse Rate 95 79 Respiratory Rate Blood Pressure Pulse Oximetry Oxygen Delivery Room Air 04/07/24 20:22 04/07/24 20:38 04/07/24 20:00 Temperature 36.6 C Pulse Rate 99 94 97 Respiratory Rate 16 Blood Pressure 152/64 H Pulse Oximetry 98 Oxygen Delivery 04/07/24 20:00 04/07/24 22:00 04/08/24 00:15 Temperature 36.5 C Pulse Rate 89 97 Respiratory Rate 16 Blood Pressure 145/51 H Pulse Oximetry 97 Oxygen Delivery Room
[2024-04-08] MEDS: ASPIRIN 81 MG ENTERIC TABLET PO (09:01)
[2024-04-08] MEDS: NIFEdipine 30 MG TAB.ER.24 60 MG PO (09:01)
[2024-04-08] MEDS: PANTOPRAZOLE 40 MG TABLET PO ×2 (09:02→20:05)
[2024-04-08] MEDS: ROSUVASTATIN 20 MG TABLET PO (09:02)
[2024-04-08 11:56] LABS: Glucose Point of Care 157 mg/dl (65-105)
--- NOTE | 2024-04-08 12:27 | WPDHPUPDATE1 ---
History and Physical Update Update Date/Time: 04/08/24 12:27 History and Physical has been reviewed, including an updated exam of the patient. There are NO changes in the patient's condition. Risks, benefits, and alternatives have been discussed and questions answered. Patient agrees to proceed with procedure.
--- NOTE | 2024-04-08 12:27 | WPDMODSED ---
Moderate Sedation Note-Pt Data Patient Data Diagnosis: NSTEMI Present Complaint: NSTEMI Procedure to be performed/Plan: Coronary angiography, left heart cath, +/- PCI Allergies Allergy/AdvReac Type Severity Reaction Status Date / Time cephalexin [Keflex] Allergy Intermediate Hives Verified 04/06/24 17:36 Home Medications Medication Instructions Recorded Confirmed Type losartan 100 mg tablet 100 mg PO 04/23/22 04/06/24 History metoprolol succinate 100 mg 100 mg PO 04/23/22 04/06/24 History tablet,extended release 24 hr nifedipine 60 mg tablet,extended 60 mg PO DAILY 04/23/22 04/06/24 History release aspirin 81 mg capsule 81 mg PO DAILY 08/08/22 04/06/24 History insulin human U-100 NPH-regulr 70 unit subcut 08/08/22 04/06/24 History 70-30 mix 100 unit/mL subcutaneous susp (Humulin 70/30 U-100 Insulin) insulin human U-100 NPH-regulr 70 unit subcut [facility] 08/08/22 04/06/24 History 70-30 mix 100 unit/mL subcutaneous susp (Humulin 70/30 U-100 Insulin) pantoprazole 40 mg tablet,delayed 40 mg PO BID 90 days #180 tabs 03/06/23 04/06/24 Rx release pioglitazone 15 mg tablet 15 mg PO DAILY 04/06/24 04/06/24 History rosuvastatin 20 mg tablet 20 mg PO DAILY 04/06/24 04/06/24 History sucralfate 100 mg/mL oral 10 ml PO ACHS 04/06/24 04/06/24 History suspension Current Medications: Active Medications Aspirin (Aspirin 81 Mg Enteric Tablet) 81 mg PO DAILY [facility] Stop: 05/07/24 08:59 Last Admin: 04/08/24 09:01 Dose: 81 mg Insulin Human Isoph/Insulin Regular (Insulin Human Isophan/Regular 70/30 (*Bkc) 100 Units/Ml) 70 units SUB-Q [facility] Last Admin: 04/08/24 09:07 Dose: Not Given Insulin Human Isoph/Insulin Regular (Insulin Human Isophan/Regular 70/30 (*Bkc) 100 Units/Ml) 70 units SUB-Q [facility] Last Admin: 04/07/24 20:22 Dose: 70 units Losartan Potassium (Losartan Potassium 100 Mg Tablet) 100 mg PO [facility] Last Admin: 04/07/24 20:22 Dose: 100 mg Metoprolol Succinate (Metoprolol Succinate Ext Rel 100 Mg Tabcr) 100 mg PO [facility] Last Admin: 04/07/24 20:22 Dose: 100 mg Nifedipine (Nifedipine 30 Mg Tab.Er.24) 60 mg PO DAILY [facility] Last Admin: 04/08/24 09:01 Dose: 60 mg Pantoprazole Sodium (Pantoprazole 40 Mg Tablet) 40 mg PO Q12HR [facility] Last Admin: 04/08/24 09:02 Dose: 40 mg Rosuvastatin Calcium (Rosuvastatin 20 Mg Tablet) 20 mg PO DAILY [facility] Last Admin: 04/08/24 09:02 Dose: 20 mg Senna (Sennosides 8.6 Mg Tablet) 8.6 mg PO PRN PRN PRN Reason: Constipation Last Admin: 04/07/24 11:39 Dose: 8.6 mg Sucralfate (Sucralfate Susp 100 Mg/Ml 10 Ml Udc) 1,000 mg PO ACHS [facility] Last Admin: 04/08/24 12:00 Dose: 1,000 mg Sedation/Anesthesia: No previous sedation/anesthesia problems (including family history). [facility] Past Medical History Medical History Coronary artery disease (11/04/17) Diabetes mellitus Hyperlipidemia Hypertension Non-STEMI (non-ST elevated myocardial infarction) (04/06/22) Pneumonia due to COVID-19 virus (04/05/22) Ulcer, stomach peptic Surgical History Surgical History History of appendectomy At age 3 S/P coronary artery stent placement (~2010) x2 Family History Family History Other CHF (congestive heart failure) Social History Social History Social History: Code status: Full code Surrogate decision maker: Babatunde Prakash (son) Smoking status: Never smoker Alcohol intake: never Alcohol use details: rare alcohol use only in small amounts Substance use: never Do You Feel Safe in your Home?: Yes Lack of Transportation: No Lack of Food: Never True Current Housing: I Have Housing Concerned About Future Housing: No Difficulty Paying Gas/Electric Bills: No Difficulty Paying for Meds: No Currently Unemploye
--- NOTE | 2024-04-08 13:01 | WPDCARDPROC ---
Cardiac Cath Procedure Note Date of procedure:: 04/08/24 Performing physician:: CATHETERIZATION LABORATORY REPORT Procedure Date: 1955 Qa Manager: Juana Pinto M.D., [facility]? Referring Physician: Juana Pinto M.D. ? Anesthesia: Versed and Fentanyl were ordered and given in my presence at 12:37, procedure ended at 12:58. Supervision of nurse monitored moderate sedation with Versed and Fentanyl was provided for 21 minutes. Total of Versed 1mg and Fentanyl 50mcg were administered by the Midlevel Provider RN Addis Meehan. Pre-op Diagnosis: Coronary artery disease Post-op Diagnosis: 1. Multi vessel coronary artery disease involving LAD, OM-2, and WASH OIL COOLER OPERATOR of proximal RCA. 2. Elevated left ventricular end-diastolic pressure of 28mmHg Procedure(s): 1. Moderate sedation 2. Ultrasound-guided access of the right radial artery 3. Coronary angiography 4. Left heart catheterization Access Site: Right radial artery Brief History and Clinical Indications: Patient is a 68 year old female with known CAD s/p 2 prior stents in 2010 who is referred for [facility] for NSTEMI. All risks, benefits and alternatives to left heart catheterization with or without percutaneous coronary intervention was discussed at length with the patient. Risk of complications including but not limited to bleeding, infection, arrhythmia, stroke, worsening kidney function, blood loss, groin hematoma, limb loss, emergency coronary artery bypass grafting, and even were discussed with the patient and all questions were answered. The patient understood and wished to proceed. Time out called, patient name, date of , medical record number, allergies, procedure performed, identify Qa Manager, patient and staff member concurred with accurate data, procedure carried on. Findings: LEFT HEART CATHETERIZATION FINDINGS: 1. Left main: The left main coronary artery is widely patent without any significant obstructive disease. The left main is short. 2. Left anterior descending: The proximal-mid LAD is heavily calcified. The proximal LAD has a heavily calcific 80% stenosis. The remainder of the LAD is diffusely diseased. The mid and distal LAD is of small caliber. Diagonal branches are of very small caliber and diffusely diseased. 3. Left circumflex: The proximal LCX is calcified. There is an angiographically moderate stenosis in the proximal LCX. Prior stent material is seen in the mid portion of the LCX extending into OM branch, proximal to the bifurcation of the OM. OM-2 branch has significant ostial disease of 70-80%. 4. Right coronary artery: The RCA is the dominant vessel. The RCA is WASH OIL COOLER OPERATOR in its proximal portion. Prior stent material is visualized in the mid portion. There are well-formed [id number]-rv-uvpod collaterals supplying the distal RCA territory. 5. Left ventricle: A. End-diastolic pressure 28 mmHg. B. LV gram deferred. C. No significant gradient across aortic valve on catheter pullback. Description of Procedure: Informed consent signed and placed in the chart. Patient transferred to veterinary laboratory technician room. Prepped and draped in usual sterile fashion. 2% lidocaine injected subcutaneously in right wrist area. 22-gauge venipuncture catheter used to access the right radial artery under ultrasound guidance. 6-FR slender sheath placed in right radial artery. Nitroglycerine and Verapamil were given intraarterial through the sheath. Versacore wire advanced under fluoroscopy 5F Tig 4 diagnostic catheter engaged Left Main Coronary Artery. 5F Tig 4 diagnostic catheter engaged Right Coronary Artery Multiple orthogonal angiogram obtained and reviewed 5F Pigtail diagnostic catheter crossed aortic valve to obtain LVEDP, LV angiogram deferred. Hemostasis was achieved by application of TR band. Post Operative Condition: Stable No significant blood loss Disposition: Floor Plan: The patient will be monitored in the recovery area. Patient has multivessel coronary art
--- NOTE | 2024-04-08 13:49 | WPDPN ---
Progress Note: A&P Assessment and Plan (1) Non-ST elevated myocardial infarction (non-STEMI): Code(s): I21.4 - Non-ST elevation (NSTEMI) myocardial infarction Status: Inactive (2) Coronary artery disease: Onset Date: 11/04/17 Code(s): I25.10 - Atherosclerotic heart disease of [place] coronary artery without angina pectoris Status: Acute (3) Essential hypertension: Code(s): I10 - Essential (primary) hypertension Status: Acute (4) Type 2 diabetes mellitus with hyperglycemia, with long-term current use of insulin: Code(s): E11.65 - Type 2 diabetes mellitus with hyperglycemia; Z79.4 - nursing home (current) use of insulin Status: Acute (5) Ulcer, stomach peptic: Code(s): K25.9 - Gastric ulcer, unspecified as acute or chronic, without hemorrhage or perforation Status: Acute Plan CAD/non STEMI/chest pain -patient's symptoms are typical chest pain with worse on exertion, concerning for ACS -elevated troponins will continue trending troponins Will avoid anticoagulation for right now due to history of GI bleed -continue telemetry, EKG showed may be early repolarization -cardiology consulted -prn Nitroglycerin, oxygen, morphine, aspirin -checking lipid panel DM Optimize medications insulin 70 /30 Routine glucose monitoring. Watch for Hypoglycemia. Watch for peripheral neuropathy Encouraged lower extremity and foot care BMI goal < 25 LDL goal <80 1800 ADA diet Lifestyle modification HB A1c levels 7.2 Antiplatelet therapy with aspirin GERD History of peptic ulcer disease and GI bleed 2 years ago Continue Protonix and Carafate Watch for dysphagia and sudden weight loss Monitor H&H routinely. Stool for occult blood if needed Discussed the etiology of GERD with patient. Encouraged lifestyle changes and the need for a lifelong regimen of medications to help reduce symptoms. Discussed the potential for serious complications if symptoms are not resolved. Discussed raising the head of the bed 4 to 6 inches; avoiding chocolate, coffee, peppermint, fruit juices, tomatoes, greasy and spicy foods. Encouraged moderation of alcoholic beverages if you drink routinely and avoidance of smoking.if a smoker History of hypertension. Continue losartan, metoprolol History of hyperlipidemia. Continue Crestor. DVT prophylaxis. SCDs will avoid any anticoagulation due to previous history of peptic ulcer disease and GI bleed GI prophylaxis. Protonix All records reviewed Discussed plan of care with the nursing staff and with the patient in detail. Answered all questions and concerns from the patient. All labs have been reviewed. 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 Will monitor will have a PT OT evaluate the patient. dictation may have been done utilizing a voice recognition system. Attempts have been made to correct errors. However, there may be uncorrected grammatical, spelling, and recognition errors present. 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
[2024-04-08 17:16] LABS: Glucose Point of Care 297 mg/dl (65-105)
[2024-04-08] MEDS: SODIUM CHLORIDE 0.9% IV 1,000 ML 125 ML IV CONT (17:23)
[2024-04-08] MEDS: INSULIN HUMAN ISOPHAN/REGULAR 70/30 (*BKC) 100 UNITS/ML 70 UNITS SUB-Q (20:04)
[2024-04-08] MEDS: LOSARTAN POTASSIUM 100 MG TABLET PO (20:05)
[2024-04-08] MEDS: METOPROLOL SUCCINATE EXT REL 100 MG TABCR PO (20:05)
[2024-04-08 20:14] LABS: Glucose Point of Care 327 mg/dl (65-105)
[2024-04-09] VITALS (10 sets, daily range): BP systolic 124–153; BP diastolic 52–62; PULSE 68–85; RESP 16–20; TEMP 36.2–36.8; O2SAT 93–99
[2024-04-09] MEDS: SUCRALFATE SUSP 100 MG/ML 10 ML UDC 1000 MG PO ×2 (07:23→12:02)
[2024-04-09 08:32] LABS: Glucose Point of Care 121 mg/dl (65-105)
[2024-04-09] MEDS: ROSUVASTATIN 20 MG TABLET PO (08:52)
[2024-04-09] MEDS: NIFEdipine 30 MG TAB.ER.24 60 MG PO (08:52)
[2024-04-09] MEDS: ASPIRIN 81 MG ENTERIC TABLET PO (08:52)
[2024-04-09] MEDS: PANTOPRAZOLE 40 MG TABLET PO (08:52)
[2024-04-09] MEDS: INSULIN HUMAN ISOPHAN/REGULAR 70/30 (*BKC) 100 UNITS/ML 70 UNITS SUB-Q (08:52)
--- NOTE | 2024-04-09 10:50 | PM.PNCARD ---
Progress Note: A&P Assessment and Plan (1) Non-STEMI (non-ST elevated myocardial infarction): Onset Date: 04/06/22 Code(s): I21.4 - Non-ST elevation (NSTEMI) myocardial infarction Status: Acute Assessment and Plan: EKGs show sinus rhythm, nonspecific STTW abnormality. No ischemic changes. Unable to compare to previous EKGs. Her first troponin at [facility] was elevated at 87.8 [0-60], with repeat at 618, and third troponin at 1947. Troponin here 1.830, followed by 0.832. Telemetry without any arrhythmias. Her troponin levels are lower this admission than when she was last here in March 2022 for acute on chronic anemia, GI bleed. No chest pain whatsoever. Had an episode of dizziness that lasted for about an hour. No other associated symptoms. Feeling well now without recurrence in symptoms. Unclear if this is an acute coronary syndrome. Her symptoms could have possibly been from an arrhythmia as well. Echocardiogram unremarkable. [facility] 04/08/24: 1. Left main: The left main coronary artery is widely patent without any significant obstructive disease. The left main is short. 2. Left anterior descending: The proximal-mid LAD is heavily calcified. The proximal LAD has a heavily calcific 80% stenosis. The remainder of the LAD is diffusely diseased. The mid and distal LAD is of small caliber. Diagonal branches are of very small caliber and diffusely diseased. 3. Left circumflex: The proximal LCX is calcified. There is an angiographically moderate stenosis in the proximal LCX. Prior stent material is seen in the mid portion of the LCX extending into OM branch, proximal to the bifurcation of the OM. OM-2 branch has significant ostial disease of 70-80%. 4. Right coronary artery: The RCA is the dominant vessel. The RCA is PLASMA CENTER TECHNICIAN in its proximal portion. Prior stent material is visualized in the mid portion. There are well-formed [id number] collaterals supplying the distal RCA territory. Patient has multivessel coronary artery disease. The mid and distal LAD is diffusely diseased and quite small caliber in size -- not sure if this would be graftable for a BHATIA, however, recommended outpatient Heart Team discussion with CT Surgery consultation. As patient is clinically stable, does not need inpatient evaluation. In the meantime, will treat medically. Started DAPT, however, patient refusing Plavix as she had significant GI bleeding with plavix in the past. Patient's primary consulting psychologist is Dr. Akiko Hastings with [facility]. She will need to follow up with Dr. Hastings after hospital discharge - she has already made an appointment. (2) Coronary artery disease: Onset Date: 11/04/17 Code(s): I25.10 - Atherosclerotic heart disease of [place] coronary artery without angina pectoris Status: Acute Assessment and Plan: Continue ASA, statin, beta migdalia. (3) Essential hypertension: Code(s): I10 - Essential (primary) hypertension Status: Acute Assessment and Plan: Continue Losartan, Toprol, Nifedipine. (4) Hyperlipidemia: Code(s): E78.5 - Hyperlipidemia, unspecified Status: Acute Assessment and Plan: Continue Rosuvastatin. (5) Type 2 diabetes mellitus with hyperglycemia, with long-term current use of insulin: Code(s): E11.65 - Type 2 diabetes mellitus with hyperglycemia; Z79.4 - oysterman (current) use of insulin Status: Acute Assessment and Plan: Management as per primary team. Subjective Date/time seen: 04/09/24 10:50 Interval history: Cardiology follow up for elevated troponin Date of service 04/08/2024: She's feeling well this morning and has no complaints. Date of service 04/09/2024: Continues to feel well and have no complaints. She is eager to go home. Review of Systems Review of Systems: All systems reviewed & are unremarkable except as noted in HPI and below (HPI) Exam Const: General: comfortable and no acute dist
--- NOTE | 2024-04-09 11:45 | PM.DS ---
DS: Admitting Diagnosis Discharge Date 04/09/2024 Admitting Diagnosis Dizziness and shortness of breath DS: Discharge Diagnosis Discharge Diagnosis (1) Non-STEMI (non-ST elevated myocardial infarction): Onset Date: 04/06/22 Code(s): I21.4 - Non-ST elevation (NSTEMI) myocardial infarction Status: Acute (2) Type 2 diabetes mellitus with hyperglycemia, with long-term current use of insulin: Code(s): E11.65 - Type 2 diabetes mellitus with hyperglycemia; Z79.4 - long term care social worker (current) use of insulin Status: Acute DS: Summary Hospital Course Hospital Course: patient presented with c/o of CP and dizziness to outside hospital and patient was found to have elevated tropes and transferred to the hospital for further evaluation, patient is seem by fashion editor does not suspect acute DC most likely demand ischemia due to arrhythmias, however to further evaluate patient will have cardiac cath today, patient is clinically stable her symptoms have improved, to further evaluate patient patient had a cardiac echo showed normal left ventricular function with ejection fraction of 65% and grade 2 diastolic dysfunction. Will monitor will have a PT OT evaluate the patient. Patient had cardiac cath patient has multivesseles coronary artery disease and many need CABG, patient with need further evaluation with CT surgeon, seen by her fashion editor and clinically stable, will discharge home today. Time Spent with Patient Time attestation: Total time spent providing and/or coordinating discharge services: Exam Narrative: GENERAL: Well appearing, no acute distress. HEAD: Normocephalic, atraumatic. NECK: Supple. No adenopathy, no masses. RESPIRATORY: respirations nonlabored. , no rales, wheezing. CARDIOVASCULAR: Regular rate and rhythm without murmurs, . Peripheral pulses 2+ and equal bilaterally.ABDOMINAL: Soft, nontender, nondistended, no hepatosplenomegaly. Normoactive BS. MUSCULOSKELETAL: no Epigastric and no hypochondrial tenderness SKIN: Warm, dry, NEURO: A&O X3. Moves all extremities DS: Data Data Completed and Pending Labs on day of discharge: Labs from last 24 hours 04/09/24 04/08/24 04/08/24 07:34 19:55 16:57 POC Capillary Glucose 121 H 327 H 297 H 04/08/24 11:44 POC Capillary Glucose 157 H Discharge Plan Discharge Attending physician on discharge: Ovidio Calero Consulting providers: Juana Pinto; Augusto Hernandez; Kimmie Parra Discharging Clinician: Marcelo To Patient Disposition: Home, Self-Care Activity: as tolerated Diet: heart healthy Discharge Instructions: [facility] [address] [place] [address] DISCHARGE INSTRUCTIONS - POST RADIAL CATH Activity 1. No driving for 24 hours. 2. No lifting more than 5 lb with affected arm for 1 week. 3. May shower ( tomorrow) but no excessive soaking of affected hand/wrist (such as washing dishes), swimming pool or hot tub for 5 days. Wound Care 1. May remove arm board in the morning. 2. May remove gauze dressing in the morning and put Band-Aid over affected radial site. Keep site covered for 3 days. 3. Observe for redness, drainage, swelling or bleeding. Medications DO NOT STOP YOUR MEDICATIONS ONLY YOUR TUBE TRAILER FILLER CAN STOP THE FOLLOWING MEDICATIONS - PLEASE CALL THE OFFICE WITH QUESTIONS. *Aspirin *Atorvastatin *Losartan *Metoprolol *Clopidogrel (Plavix) Important Reminders 1.
[2024-04-09 12:50] LABS: Glucose Point of Care 130 mg/dl (65-105)
== END 2024-04-09 12:59 | disposition home or self-care (01) ==
PROVIDERS: Internal Medicine; Admitting Provider Internal Medicine; PCP Internal Medicine; Visit Provider Family Medicine
PROC: 4A023N7 Measurement of Cardiac Sampling and Pressure, Left Heart, Percutaneous Approach (ICD-10-PCS; CPT 93452; principal; 2024-04-08 13:00)
DX: I21.4 Non-ST elevation (NSTEMI) myocardial infarction (principal); I25.10 Atherosclerotic heart disease of native coronary artery without angina pectoris; I10 Essential (primary) hypertension; E11.65 Type 2 diabetes mellitus with hyperglycemia; I27.20 Pulmonary hypertension, unspecified; I08.1 Rheumatic disorders of both mitral and tricuspid valves; K25.9 Gastric ulcer, unspecified as acute or chronic, without hemorrhage or perforation; Z95.5 Presence of coronary angioplasty implant and graft; E78.5 Hyperlipidemia, unspecified; I25.2 Old myocardial infarction; Z79.4 Long term (current) use of insulin; Z79.82 Long term (current) use of aspirin; Z79.84 Long term (current) use of oral hypoglycemic drugs
CPT/HCPCS: 36415; 80053; 80061; 82948; 83036; 84443; 84484; 85027; 93458; 96374; A9270; C1769; C1887; C1894; C8929; G0378; J1644; J1815; J2250; J2305; J3010; J7030; J7040; Q9957

== ENCOUNTER 2024-07-09 14:49 | Inpatient (IN) | payer MEDICARE, MEDICAID, SELFPAY ==
[2024-07-09] VITALS (21 sets, daily range): BP systolic 132–165; BP diastolic 39–66; PULSE 98–114; RESP 16–30; TEMP 36.9; O2SAT 94–100; BMI 26.8; BMI 26.6
--- NOTE | ~2024-07-09 | CT_ITS ---
EXAMINATION: CT brain wo con DATE: 07/09/2024 15:32 INDICATION: Dizziness. TECHNIQUE: Computed tomography (CT) of the head was performed without intravenous contrast. The mA wa s adjusted according to patient size. Iterative reconstruction technique was employed. The dose-lengt h product was 605.33 mGy-cm. COMPARISON: Head CT 07/18/2020 FINDINGS: There is no intracranial hemorrhage, acute infarction, or abnormal intracranial mass lesion . The ventricles are normal in size. The orbits are normal. The paranasal sinuses are clear. The mast oid air cells are normal. IMPRESSION: 1. Normal brain. Reviewed, dictated and finalized at location A. IMPRESSION: 1. Normal brain.
--- NOTE | ~2024-07-09 | CT_ITS ---
EXAMINATION: CT abdomen pelvis wo con DATE: 07/11/2024 00:02 INDICATION: Bleeding stoma. TECHNIQUE: Computed tomography (CT) of the abdomen and pelvis was performed without intravenous contr ast. Automated exposure control and iterative reconstruction technique were employed. The dose-length product was 798.29 mGy-cm. COMPARISON: None. FINDINGS: The visualized portions of the lung bases demonstrate mild atelectasis. There are small ple ural effusions. Cardiomegaly is noted. There are coronary artery calcifications. There is a small per icardial effusion. The liver is normal. There are gallstones in the gallbladder, which is normal in s ize. The spleen, pancreas, adrenal glands, and kidneys are normal. There is no urolithiasis. There is calcified atherosclerosis of the aorta and many of the other arteries. There is a stent in the super ior mesenteric artery. There is gas in the bladder lumen, likely from recent instrumentation. There i s diverticulosis of the colon without evidence of diverticulitis. There is an end ileostomy on the ri ght. 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 There is fat stranding in the abdomen, consistent with in flammation versus edema. There is trace ascites. There is severe lumbar spondylosis. IMPRESSION: 1. Small pleural effusions. 2. Small pericardial effusion. 3. Stranding in the abdomen, consistent with inflammation versus edema. Reviewed, dictated and finalized at location A.
--- NOTE | ~2024-07-09 | XR_ITS ---
XR chest 2V Ordering provider: Canelo Duran MD History: 68 years Female with . dizziness . Comparison: April 23, 2022 FINDINGS: MEDIASTINUM: The cardiac silhouette is not enlarged. Postoperative changes in the mediastinum. LUNGS: No infiltrates, effusions or pneumothorax. OTHER: No free air under the diaphragm. IMPRESSION: No acute cardiopulmonary pathology. Reviewed, dictated and finalized at location A.
--- NOTE | 2024-07-09 14:50 | ED.DIZZY ---
HPI - Dizziness General Chief Complaint: Dizziness Stated Complaint: dizzy Time Seen by Provider: 07/09/24 14:49 Source: patient and EMS Mode of arrival: EMS History of Present Illness HPI Narrative: 68 years old white female came to the ED by ambulance from [facility] not feeling good, feeling dehydrated, nauseated, diaphoretic associated with dizziness started at 5:00 a.m. this morning. Which is roughly 10 hours ago. Patient is status post CABG subsequently 1 week later abdominal surgery and 2 ostomies. Patient was discharged from [facility] and admitted to [facility] on July 02 which is 7 days ago. Patient is telling me the staff Of the [facility] are not qualify to take care of her. Her stools leaking out of the bag, diarrhea like, yellowish coloration, unable to manage the colostomy bags. History of diabetes, hypertension, hyperlipidemia, baby aspirin once a day, CABG and abdominal surgery of unknown etiology at this time Related Data Home Medications Medication Instructions Recorded Confirmed losartan 100 mg tablet 100 mg PO HS 04/23/22 04/06/24 metoprolol succinate 100 mg 100 mg PO 04/23/22 04/06/24 tablet,extended release 24 hr nifedipine 60 mg tablet,extended 60 mg PO DAILY 04/23/22 04/06/24 release aspirin 81 mg capsule 81 mg PO DAILY 08/08/22 04/06/24 insulin human U-100 NPH-regulr 70 unit subcut 08/08/22 04/06/24 70-30 mix 100 unit/mL subcutaneous susp (Humulin 70/30 U-100 Insulin) insulin human U-100 NPH-regulr 70 unit subcut [facility] 08/08/22 04/06/24 70-30 mix 100 unit/mL subcutaneous susp (Humulin 70/30 U-100 Insulin) pioglitazone 15 mg tablet 15 mg PO DAILY 04/06/24 04/06/24 rosuvastatin 20 mg tablet 20 mg PO DAILY 04/06/24 04/06/24 sucralfate 100 mg/mL oral 10 ml PO ACHS 04/06/24 04/06/24 suspension Allergies Allergy/AdvReac Type Severity Reaction Status Date / Time cephalexin [Keflex] Allergy Intermediate Hives Verified 04/06/24 17:36 Review of Systems Review of Systems: All systems reviewed & are unremarkable except as noted in HPI and below PMFSH Past Medical History Medical History Coronary artery disease (11/04/17) Diabetes mellitus Hyperlipidemia Hypertension Non-STEMI (non-ST elevated myocardial infarction) (04/06/22) Pneumonia due to COVID-19 virus (04/05/22) Ulcer, stomach peptic Surgical History Surgical History History of appendectomy At age 3 S/P coronary artery stent placement (~2010) x2 Family History Family History Other CHF (congestive heart failure) Social History Social History Social History: Code status: Full code Surrogate decision maker: Babatunde Prakash (son) Smoking status: Never smoker Alcohol intake: never Alcohol use details: rare alcohol use only in small amounts Substance use: never Do You Feel Safe in your Home?: Yes Lack of Transportation: No Lack of Food: Never True Current Housing: I Have Housing Concerned About Future Housing: No Difficulty Paying Gas/Electric Bills: No Difficulty Paying for Meds: No Currently Unemployed: No Education: Decline to Answer Difficulty w/ Childcare or Family Care: No Living arrangements: with family Additional living arrangements comments: She lives in her own apartment. Her brother recently moved in with her after he retired. She has 1 son. 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 Gender identity (if verbalized by the patient): Female Spiritual care concerns: No Exam Narrative: General appearance: Well-developed, well-nourished Skin: Normal color Head: Normocephalic, nontraumatic Eyes: Clear conjunctiva ENT: Oropharynx normal, ears normal, nose normal Neck: Supple, nontender Chest and respiratory: Airway patent, no respiratory distress, no accessory muscle use Heart: tachycardia Abdomen: Soft, nontender, no organomegaly, quiet bowel sounds ,2 bags 1 of them showing liquid yellowish stool almost full Vascular: Normal peripheral pulses, normal capillary refill. Musculoskeletal: Normal range of motion, nontender back Neurologic: Alert and oriented ?3, TRAUMA DOCTOR is normal as tested, no gross motor deficit Course Vital Signs Vital signs: Vital Signs Pulse Rate 110 H 07/09/24 14:49 Respiratory Rate 30 H 07/09/24 14:49 Blood Pressure 136/43 L 07/09/24 14:49 Pulse Oximetry 94 07/09/24 14:49 Oxygen Delivery Room Air 07/09/24 14:49 Pulse Rate 107 H 07/09/24 18:15 Respiratory Rate 18 07/09/24 18:15 Blood Pressure 154/64 H 07/09/24 18:14 Pulse Oximetry 97 07/09/24 18:15 Oxygen Delivery Room Air 07/09/24 14:49 MDM - Dizziness MDM Narrative Medical decision making narrative: PATIENT PRESENTS WITH NOT FEELING WELL, FEELING DEHYDRATED, DIZZY, AND POOR RETIREMENT MANAGEMENT FOR HER CLOSELY BAGS. VITAL SIGNS ARE STABLE PHYSICAL EXAMINATION SHOWING ILL LOOKING PATIENT, YELLOW LIQUID STOOL LEAKING OUT A CLOSE BAG DIFFERENTIAL DIAGNOSIS INCLUDE DEHYDRATION, URINARY TRACT INFECTION, ELECTROLYTE IMBALANCE, DEPRESSION. BLOOD WORKUP TODAY SHOWED NORMAL WBC, LIKE A SODIUM OF 132, BLOOD GLUCOSE 388, LACTIC ACID 3.6 URINALYSIS SHOWED EVIDENCE OF URINARY TRACT INFECTION, /STRAIGHT CATH. ROCEPHIN IV STARTED PATIENT RECEIVED 2 L OF NORMAL SALINE ADMIT TO HOSPITALIST, OBSERVATION. Differential Diagnosis Differential diagnosis: Likely other ( ABOVE) Lab Data 07/09/24 16:02 07/09/24 16:02 Labs: Lab Results 07/09/24 07/09/24 Range/Units 16:02 16:28 WBC 8.2 (4.5-10.0) K/mm3 RBC 3.75 L (4.2-5.4) M/mm3 Hgb 11.2 L (12.0-15.0) g/dL Hct 35.9 L (37.0-47.0) % MCV 95.7 (80-100) fl MCH 29.9 (26-34) pg MCHC 31.2 L (32-36) g/dl RDW 16.0 H (11.5-14.5) % Plt Count 340 (150-375) k/mm3 MPV 9.7 (7.4-10.4) fl Immature Gran % (Auto) 0.5 (0-0.5) % Neut % (Auto) 79.5 H (45.5-73.1) % Lymph % (Auto) 10.9 L (18.3-44.2) % [place] % (Auto) 7.2 (2.6-8.5) % Eos % (Auto) 1.2 (0-4.4) % Baso % (Auto) 0.7 (0.2-1.2) % Lymph # (Auto) 0.89 L (0.9-3.2) K/mm3 [place] # (Auto) 0.6 (0.1-0.6) K/mm3 Eos # (Auto) 0.1 (0-0.3) K/mm3 Baso # (Auto) 0.1 (0.0-0.1) K/mm3 Abs Immat Gran (auto) 0.04 H (0.00-0.031) K/mm3 Absolute Neuts (auto) 6.5 (1.3-6.7) K/mm3 Absolute Nucleated RBC 0.000 (0.0-0.012) K/mm3 Nucleated RBC % 0.0 (0.0-0.2) % PT 16.1 H (11.1-14.7) Seconds INR 1.2 APTT 28.5 (22.3-36.8) Seconds Sodium 132 L (137-145) mmol/L Potassium 5.0 (3.4-5.0) mmol/L Chloride 96 L (98-107) mmol/L Carbon Dioxide 27 (22-30) mmol/L Anion Gap 9 (4-12) mmol/L BUN 23 H (7-17) mg/dL Creatinine 0.90 (0.7-1.0) mg/dL Estim Creat Clear Calc Not Reportable Estimated GFR > 60 (59 - ) Glucose 388 H (65-110) mg/dL Lactic Acid 3.6 H (0.7-2.0) mmol/L Calcium 9.0 (8.4-10.2) mg/dL Total Bilirubin 1.4 H (0.2-1.3) mg/dL AST 34 (14-36) U/L ALT 34 (6-35) U/L Alkaline Phosphatase 141 H (38-126) U/L C-Reactive Protein 5.3 H (<1.0) mg/dL Total Protein 8.0 (6.3-8.2) g/dL Albumin 3.7 (3.5-5.1) g/dL Urine Color Yellow (Yellow) Urine Appearance Turbid H (Clear) Urine pH 5.0 (5.0-9.0) Ur Specific [place] 1.015 (1.001-1.035) Urine Protein 1+ H (Negative) mg/dL Urine Glucose (UA) 3+ H (Negative) mg/dL Urine Ketones Negative (Negative) mg/dL Ur Blood (Man) Non-hemolyzed trace H (Negative) Urine Nitrate Negative (Negative) Urine Bilirubin Negative (Negative) Urine Urobilinogen 0.2 (<2.0) mg/dL Add Ur Microanalysis Reviewed Leukocyte Esterase Rfl 3+ H (Negative) MILLI/UL Urine RBC 11-20 H (0-2) /hpf Urine WBC 51-100 H (0-3) /hpf Ur Squamous Epith Cells Many H (Few) /hpf Urine Bacteria 1+ H /hpf Urine Casts 11-20 Imaging Data Radiologist's impression: Impressions Head CT 07/09/24 15:36 IMPRESSION: 1. Normal brain. Chest X-Ray 07/09/24 15:40 IMPRESSION: No acute cardiopulmonary pathology. Discharge Plan Discharge Clinical Impression: Urinary tract infection, Hyperglycemia due to diabetes mellitus, Acute dehydration Patient Disposition: Still a Patient Condition: Stable Additional Instructions: admit to hospitalist Prescriptions: No Action pioglitazone 15 mg tablet 15 mg PO DAILY sucralfate 100 mg/mL suspension 10 ml PO ACHS rosuvastatin 20 mg tablet 20 mg PO DAILY nifedipine 60 mg tablet extended release 60 mg PO DAILY losartan 100 mg tablet 100 mg PO HS metoprolol succinate 100 mg tablet extended release 24 hr 100 mg PO HS aspirin 81 mg Capsule 81 mg PO DAILY Humulin 70/30 U-100 Insulin 100 unit/mL (70-30) suspension 70 unit SUBCUT QAM Humulin 70/30 U-100 Insulin 100 unit/mL (70-30) suspension 70 unit SUBCUT HS sennosides [Senokot] 8.6 mg Tablet 8.6 mg PO PRN PRN (Reason: Constipation) Qty: 30 0RF pantoprazole 40 mg tablet,delayed release (DR/EC) 40 mg PO BID 90 Days Qty: 180 2RF Follow-up/Referrals: Torres Pedroza MD [Primary Care Provider] -
--- NOTE | 2024-07-09 14:58 | ECG_ITS ---
Test Date: 2024-07-09 15:03:36 Measurements Intervals [place] Rate: 106 P: 68 SD: 142 QRS: 62 QRSD: 83 T: 180 QT: 313 QTc: 417 Interpretive Statements SINUS TACHYCARDIA LEFT VENTRICULAR HYPERTROPHY AND ST-T CHANGE [VOLTAGE CRITERIA PLUS ST/T ABNORMALITY] ARTIFACT Compared to ECG 04/06/2024 15:53:15 NO CHANGES Electronically Signed On 07-10-2024 08:26:39 CDT by Mundo Rogers M.D.
[2024-07-09] MEDS: ONDANSETRON INJ 4 MG/2 ML VIAL 8 MG IV PUSH (15:57)
[2024-07-09] MEDS: SODIUM CHLORIDE 0.9% IV 1,000 ML 999 ML IV CONT ×2 (15:57→17:17)
[2024-07-09 16:15] LABS: Basophils Absolute Auto 0.1 K/mm3 (0.0-0.1); Basophils Percent Auto 0.7 % (0.2-1.2); Eosinophils Absolute Auto 0.1 K/mm3 (0-0.3); Eosinophils Percent Auto 1.2 % (0-4.4); Hematocrit 35.9 % (37.0-47.0); Hemoglobin 11.2 g/dL (12.0-15.0); Immature Granulocyte Absolute 0.04 K/mm3 (0.00-0.031); Immature Granulocyte Percent A 0.5 % (0-0.5); Lymphocytes Absolute Auto 0.89 K/mm3 (0.9-3.2); Lymphocytes Percent Auto 10.9 % (18.3-44.2); Mean Corpuscular HGB Conc 31.2 g/dl (32-36); Mean Corpuscular Hemoglobin 29.9 pg (26-34); Mean Corpuscular Volume 95.7 fl (80-100); Mean Platelet Volume 9.7 fl (7.4-10.4); Monocytes Absolute Auto 0.6 K/mm3 (0.1-0.6); Monocytes Percent Auto 7.2 % (2.6-8.5); Neutrophils Absolute Auto 6.5 K/mm3 (1.3-6.7); Neutrophils Percent Auto 79.5 % (45.5-73.1); Platelet Count Result 340 k/mm3 (150-375); Red Blood Count 3.75 M/mm3 (4.2-5.4); White Blood Count 8.2 K/mm3 (4.5-10.0)
[2024-07-09 16:33] LABS: Lactic Acid Reflex 3.6 mmol/L (0.7-2.0)
[2024-07-09 16:36] LABS: Alanine Aminotransferase 34 U/L (6-35); Albumin Level 3.7 g/dL (3.5-5.1); Alkaline Phosphatase 141 U/L (38-126); Anion Gap 9 mmol/L (4-12); Aspartate Amino Transferase 34 U/L (14-36); Bilirubin,Total 1.4 mg/dL (0.2-1.3); Blood Urea Nitrogen 23 mg/dL (7-17); CRP 5.3 mg/dL (<1.0); Carbon Dioxide 27 mmol/L (22-30); Chloride 96 mmol/L (98-107); Estimated Glomerular Filt Rate > 60; Glucose 388 mg/dL (65-110); Sodium 132 mmol/L (137-145)
[2024-07-09 16:40] LABS: INR 1.2; Prothrombin Time 16.1 Seconds (11.1-14.7)
[2024-07-09 16:41] LABS: Partial Thromboplastin Time 28.5 Seconds (22.3-36.8)
[2024-07-09 17:03] LABS: Add Urine Microscopic? YES; Appearance Urine Turbid (Clear); Bacteria Urine 1+ /hpf; Bilirubin Urine Negative (Negative); Blood Urine Non-Hemolyzed Trace (Negative); Color Urine Yellow (Yellow); Glucose Urine UA 3+ mg/dL (Negative); Ketones Urine Negative (Negative); Leukocyte Esterase Ur 3+ LEU/UL (Negative); Need Manual Microscopic Reviewed; Nitrate Urine Negative (Negative); Protein Urine 1+ mg/dL (Negative); Specific Grav Ur 1.015 (1.001-1.035); Squamous Epithelial Cell Urine Many /hpf (Few); Urobilinogen Urine 0.2 mg/dL (<2.0); WBC Urine 51-100 /hpf (0-3)
[2024-07-09] MEDS: MORPHINE SULFATE (*CRX) 4 MG/ML INJ IV PUSH (17:54)
[2024-07-09] MEDS: ONDANSETRON INJ 4 MG/2 ML VIAL IV PUSH (17:54)
--- NOTE | 2024-07-09 18:09 | PC.NURSE ---
Faxed release of info consent to [facility] hospitalist request
--- NOTE | 2024-07-09 18:15 | PM.IMHP ---
H&P: HPI History of Present Illness Date/Time: 07/09/24 18:15 Chief Complaint: Multiple complaints. Narrative: This is a pleasant 68-year-old female with coronary artery disease status post 4 vessel bypass on 06/15/2024 at [facility], insulin-dependent type 2 diabetes mellitus, hypertension, dyslipidemia, peptic ulcers, and what sounds like a partial colectomy with ostomy who presented to the emergency department via EMS from [facility] with multiple complaints. The patient provides the following history. Following her bypass surgery she had what sounds like a bowel obstruction with necrosis or possible perforation (the patient and her son do not know the specifics and records have been requested) and she was in the ICU for an extended stay. She was discharged to [facility] for rehab one week ago and she has not been happy with the care that she is receiving there. The patient feels as though they are not responsive to her needs in a timely fashion and she does not believe they have the appropriate bags for her ostomy as they are continuously leaking. Her glucose has been labile with a reported level in the 40s this morning however was over 300 last evening. She does not think that she is getting enough fluid and feels dehydrated. Today she is feeling lightheaded and dizzy with position changes and overall feels weak. She denies fever, chills, sweats, syncope, chest pain, pleuritic pain, palpitations, shortness of breath, cough, abdominal pain, vomiting, and dysuria. In the ED: She was afebrile on arrival with stable vital signs. Labs were significant for WBC count of 8.2, hemoglobin 11.2, platelet 340, sodium 132, chloride 96, BUN 23, creatinine 0.90, glucose 388, total bilirubin 1.4, CRP 5.3 lactic acid 3.6. Urinalysis was positive for 1+ protein, 3+ glucose, 3+ leukocyte esterase, 11 to 20 RBC, 51 to 100 WBC, 1+ bacteria, and many squamous cells with 11 to 20 casts seen on microscopy. Head CT showed normal brain. Chest x-ray showed no acute cardiopulmonary disease. She was given ceftriaxone 1 g for possible urinary tract infection and 2 L normal saline bolus. She is being admitted in this setting for further hydration and care coordination consult as she reports will not be to returning to [facility]. Review of Systems Review of Systems: 12 systems were reviewed and are negative except for as per HPI. [facility] Past Medical History Medical History (Updated 07/09/24 @ 21:30 by Sushila Alvarez PA-C) Coronary artery disease (11/04/17) Esophagitis with gastritis Hyperlipidemia Hypertension Insulin dependent type 2 diabetes mellitus Non-STEMI (non-ST elevated myocardial infarction) (04/06/22) Peptic ulcer of stomach Pneumonia due to COVID-19 virus (04/05/22) Surgical History Surgical History (Updated 07/09/24 @ 18:40 by Sushila Alvarez PA-C) History of appendectomy History of coronary artery stent placement History of four vessel coronary artery bypass graft (05/2024) [facility] History of partial colectomy Family History Family History Other CHF (congestive heart failure) Social History Social History (Updated 07/09/24 @ 21:32 by Sushila Alvarez PA-C) Social History: Surrogate medical decision maker: Babatunde Prakash, son ([phone]). Code status: Full code. Smoking status: Never smoker Alcohol intake: never Alcohol use details: rare alcohol use only in small amounts Substance use: never Substance use type: does not use Do You Feel Safe in your Home?: Yes Lack of Transportation: No Lack of Food: Never True Current Housing: I Have Housing Concerned About Future Housing: No Difficulty Paying Gas/Electric Bills: No Difficulty Paying for Meds: No Currently Unemployed: No Education: High School Diploma/GED Difficulty w/ Childcare or Family Care: No Living arrangements: with family Additional living arrangements comments: She lives with her brother and her beagle Vick. She has 1 son. 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 Spiritual care concerns: No Meds Home Medications and Allergies Home Medications Medication Instructions Recorded Confirmed Type losartan 100 mg tablet 100 mg PO HS 04/23/22 07/09/24 History metoprolol succinate 100 mg 50 mg PO BID 04/23/22 07/09/24 History tablet,extended release 24 hr aspirin 81 mg capsule 81 mg PO DAILY 08/08/22 07/09/24 History insulin human U-100 NPH-regulr 50 unit subcut BID 08/08/22 07/09/24 History 70-30 mix 100 unit/mL subcutaneous susp (Humulin 70/30 U-100 Insulin) rosuvastatin 20 mg tablet 20 mg PO DAILY 04/06/24 07/09/24 History sucralfate 100 mg/mL oral 10 ml PO ACHS 04/06/24 07/09/24 History suspension sennosides 8.6 mg tablet (Senokot) 8.6 mg PO PRN PRN Constipation #30 04/09/24 07/09/24 Rx tabs acetaminophen 325 mg tablet 650 mg PO Q8H PRN Pain (Scale 07/09/24 07/09/24 History Score 1-3) amiodarone 200 mg tablet 200 mg PO BID 07/09/24 07/09/24 History bisacodyl 10 mg rectal suppository 10 mg RECTAL DAILY PRN Constipation 07/09/24 07/09/24 History clopidogrel 75 mg tablet 75 mg PO DAILY 07/09/24 07/09/24 History furosemide 40 mg tablet 40 mg PO DAILY 07/09/24 07/09/24 History nifedipine 60 mg tablet,extended 60 mg PO DAILY 07/09/24 07/09/24 History release pantoprazole 40 mg tablet,delayed 40 mg PO DAILY 07/09/24 07/09/24 History release trazodone 50 mg tablet 50 mg PO HS 07/09/24 07/09/24 History Allergies Allergy/AdvReac Type Severity Reaction Status Date / Time cephalexin [Keflex] Allergy Intermediate Hives Verified 04/06/24 17:36 clopidogrel [From Plavix] Allergy Unknown Verified 07/09/24 20:12 Vital Signs Vital Signs - 24 hr 07/09/24 14:49 07/09/24 14:55 07/09/24 16:00 Pulse Rate 110 H 106 H 108 H Respiratory Rate 30 H 22 H 19 Blood Pressure 136/43 L 136/43 L 132/50 L Pulse Oximetry 94 99 98 Oxygen Delivery Room Air 07/09/24 17:25 07/09/24 15:00 07/09/24 15:15 Pulse Rate 100 106 H 109 H Respiratory Rate 20 20 23 H Blood Pressure 140/46 L 137/41 L 136/39 L Pulse Oximetry 100 99 98 Oxygen Delivery 07/09/24 16:15 07/09/24 16:30 07/09/24 17:00 Pulse Rate 101 H 101 H 103 H Respiratory Rate 17 18 16 Blood Pressure 150/55 H 146/48 H 136/45 L Pulse Oximetry 99 99 99 Oxygen Delivery 07/09/24 17:15 07/09/24 17:23 07/09/24 17:46 Pulse Rate 102 H 101 H 103 H Respiratory Rate 19 17 19 Blood Pressure 138/50 L 132/66 155/58 H Pulse Oximetry 98 100 99 Oxygen Delivery 07/09/24 18:00 07/09/24 18:01 Pulse Rate 105 H 105 H Respiratory Rate 21 H 18 Blood Pressure 159/47 H Pulse Oximetry 100 98 Oxygen Delivery Exam Narrative: General: Chronically ill-appearing female in the semi-Perez position in bed in no acute distress. Weight: 72.5 kg. BMI: 26.6. HEENT: PERRL, EOMI. Sclera anicteric. Tacky mucous membranes. Neck: Supple. No JVD or lymphadenopathy. Respiratory: Respirations are nonlabored and lungs are clear to auscultation bilaterally. Cardiovascular: Regular rate and rhythm with S1-S2. Chest: Healing sternotomy. Gastrointestinal: Abdomen is soft and nondistended with positive bowel sounds. There is an ostomy in the right middle quadrant with loose yellow stool in the bag. Another stoma is to the left of that and is draining a small amount of pinkish mcclellan opaque fluid. Multiple healing incisions from laparoscopy. There is some area of breakdown around the stoma bags. Skin: Warm and dry. Generalized pallor. Extremities: No cyanosis, clubbing, or edema. Radial and pedal pulses intact. Healing incisions from vein grafts. Neurological: Alert. Cranial nerves 2-12 are grossly intact. Generalized weakness without focal findings. Psychiatric: Pleasant and cooperative with normal mood. She is tearful. H&P: Results Labs Labs: Short CBC 07/09/24 Range/Units 16:02 WBC 8.2 (4.5-10.0) K/mm3 Hgb 11.2 L (12.0-15.0) g/dL Hct 35.9 L (37.0-47.0) % Plt Count 340 (150-375) k/mm3 [facility] 07/09/24 16:02 Sodium 132 L Potassium 5.0 Chloride 96 L Carbon Dioxide 27 BUN 23 H Creatinine 0.90 Glucose 388 H Calcium 9.0 Liver Function 07/09/24 Range/Units 16:02 Total Bilirubin 1.4 H (0.2-1.3) mg/dL AST 34 (14-36) U/L ALT 34 (6-35) U/L Alkaline Phosphatase 141 H (38-126) U/L Albumin 3.7 (3.5-5.1) g/dL Urine 07/09/24 Range/Units 16:28 Urine Color Yellow (Yellow) Urine Appearance Turbid H (Clear) Urine pH 5.0 (5.0-9.0) Ur Specific [place] 1.015 (1.001-1.035) Urine Protein 1+ H (Negative) mg/dL Urine Glucose (UA) 3+ H (Negative) mg/dL Imaging Head CT 07/09/24 15:36 IMPRESSION: 1. Normal brain. Chest X-Ray 07/09/24 15:40 IMPRESSION: 1. No acute cardiopulmonary pathology. Assessment and Plan Assessment and plan (1) Dehydration: Code(s): E86.0 - Dehydration Status: Acute (2) Labile blood glucose: Code(s): R73.09 - Other abnormal glucose Status: Acute (3) Insulin dependent type 2 diabetes mellitus: Code(s): E11.9 - Type 2 diabetes mellitus without complications; Z79.4 - [facility] (current) use of insulin Status: Acute (4) Coronary artery disease: Onset Date: 11/04/17 Code(s): I25.10 - Atherosclerotic heart disease of [place] coronary artery without angina pectoris Status: Acute (5) Essential hypertension: Code(s): I10 - Essential (primary) hypertension Status: Acute Plan The patient presented to the emergency department for evaluation of multiple complaints including dizziness, dehydration, labile blood pressures, and concerns about the care that she is receiving at rehab as detailed in HPI. Labs, imaging, EKG, and all reports were personally reviewed. She looks a bit dry on exam and labs and will be hydrated overnight. Lactic acid level was elevated though sepsis seems unlikely and I suspect this is related to lab draw technique. She did received 2 L normal saline in the ED and lactic acid level has normalized. Blood cultures were obtained though there is no history to suggest underlying infection. Her dizziness seems to occur mostly with position changes thus will check orthostatic vital signs. Initiate fall precautions and consult PT/OT. She does not intend on returning to [facility] and care coordination has been consulted as she will likely still need to go to rehab on discharge. She is interested to see if she would qualify for [facility]. 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 We will continue to monitor glucose closely and make adjustments in dosing depending on how she trends. Initiate sliding scale insulin, Accu-Cheks, and hypoglycemic protocol. A1c is pending. Urinalysis is abnormal but looks contaminated. She is afebrile with a normal WBC count and has no complaints of dysuria thus will discontinue antibiotics. Her abdominal exam is benign and records have been requested from [facility] to establish a better picture as to what surgeries she had while in the hospital. Wound nurse has been consulted to help with her ostomy; patient has not been instructed on how to care for them. No issues with regards to chest pain and her sternotomy is healing nicely. Her medications will be reviewed and resumed as appropriate. Findings and treatment plan were discussed with the patient. Questions were solicited and answered to satisfaction. The patient's medical management will be taken over by the hospitalist team in a.m. Quality VTE Prophylaxis VTE prophylaxis: mechanical ordered If No VTE Prophylaxis Answer both mechanical and pharmacologic: Reason no pharmacologic proph: medical contraindication (patient on dual anti-platelet therapy, pharmacologic prophylaxis would put her at increased risk for bleeding.) The patient has been admitted under observation status. Hospitalist [facility] Advance Care Plan I have confirmed that the patient's Advanced Care Plan is present, code status is documented, or surrogate decision maker is listed in patient medical record.: Yes Medication Reconciliation The patient is not eligible for med reconciliation; the patient is in a emergent medical situation where delaying treatment would jeopardize the patients health.: Yes
[2024-07-09 19:09] LABS: Reflex Lactic Acid Yes or No Add Lactic
--- NOTE | 2024-07-09 20:22 | ADMGEN ---
This patient, Sujata Prakash, was admitted to Medical Room 345-. Patient/family oriented to hospital policies and general routines including ID bracelet, bed and alarms, visiting hours, pain management, procedures, bathroom and other care routines, personal items, smoking policy, room service/diet, and visiting hours. Information on how to activate the Rapid Response Team has been discussed. Patient/Family are encouraged to report perceived risks to care and to ask questions if they do not understand what they are told or what they should do.
[2024-07-09] MEDS: SODIUM CHLORIDE 0.9% IV 1,000 ML 125 ML IV CONT (20:46)
[2024-07-09 21:33] LABS: Hemoglobin A1C 5.8 % (<5.7)
[2024-07-09] MEDS: AMIODARONE HCL 200 MG TABLET PO (22:22)
[2024-07-09] MEDS: METOPROLOL SUCCINATE EXT REL 50 MG TABCR PO (22:22)
[2024-07-09] MEDS: INSULIN ASPART (*BKC) 100 UNITS/ML SUB-Q (22:26)
[2024-07-09] MEDS: PANTOPRAZOLE 40 MG TABLET PO (22:28)
[2024-07-09 23:05] LABS: Glucose Point of Care 273 mg/dl (65-105)
[2024-07-10] VITALS (12 sets, daily range): BP systolic 122–162; BP diastolic 44–57; PULSE 86–102; RESP 18; TEMP 36.4–37; O2SAT 97–100
[2024-07-10] MEDS: SUCRALFATE SUSP 100 MG/ML 10 ML UDC 1000 MG PO ×4 (05:04→20:52)
[2024-07-10 06:04] LABS: Hematocrit 32.8 % (37.0-47.0); Mean Corpuscular HGB Conc 30.5 g/dl (32-36); Mean Corpuscular Hemoglobin 29.7 pg (26-34); Mean Corpuscular Volume 97.3 fl (80-100); Mean Platelet Volume 9.5 fl (7.4-10.4); Platelet Count Result 283 k/mm3 (150-375); Red Blood Count 3.37 M/mm3 (4.2-5.4); White Blood Count 7.4 K/mm3 (4.5-10.0)
[2024-07-10 06:15] LABS: Alanine Aminotransferase 26 U/L (6-35); Albumin Level 2.9 g/dL (3.5-5.1); Alkaline Phosphatase 116 U/L (38-126); Anion Gap 6 mmol/L (4-12); Aspartate Amino Transferase 23 U/L (14-36); Bilirubin,Total 1.1 mg/dL (0.2-1.3); Blood Urea Nitrogen 15 mg/dL (7-17); Carbon Dioxide 25 mmol/L (22-30); Chloride 105 mmol/L (98-107); Estimated CRCL calculation 51 ml/min; Estimated Glomerular Filt Rate > 60; Glucose 174 mg/dL (65-110); Magnesium 1.8 mg/dL (1.6-2.3); Potassium 4.7 mmol/L (3.4-5.0); Sodium 136 mmol/L (137-145)
[2024-07-10 08:34] LABS: Glucose Point of Care 162 mg/dl (65-105)
[2024-07-10] MEDS: AMIODARONE HCL 200 MG TABLET PO ×2 (08:42→20:52)
[2024-07-10] MEDS: ASPIRIN 81 MG ENTERIC TABLET PO (08:42)
[2024-07-10] MEDS: CLOPIDOGREL BISULFATE 75 MG TABLET PO (08:43)
[2024-07-10] MEDS: METOPROLOL SUCCINATE EXT REL 50 MG TABCR PO ×2 (08:44→20:52)
[2024-07-10] MEDS: FUROSEMIDE 40 MG TABLET PO (08:44)
[2024-07-10] MEDS: ROSUVASTATIN 20 MG TABLET PO (08:45)
[2024-07-10] MEDS: PANTOPRAZOLE 40 MG TABLET PO ×2 (08:45→20:52)
[2024-07-10] MEDS: NIFEdipine 30 MG TAB.ER.24 60 MG PO (08:46)
[2024-07-10] MEDS: INSULIN HUMAN ISOPHAN/REGULAR 70/30 (*BKC) 100 UNITS/ML 50 UNITS SUB-Q (08:51)
--- NOTE | 2024-07-10 12:17 | P.PNIM_ITS ---
Progress Note: A&P Assessment and Plan (1) Dehydration: Code(s): E86.0 - Dehydration Status: Acute Assessment and Plan: * Resolved after IV hydration * 07/10 hold furosemide (2) Labile blood glucose: Code(s): R73.09 - Other abnormal glucose Status: Acute Assessment and Plan: * At home she was taking 70 units of 70/30 twice daily and at the [facility] 50 units of 70/30 twice daily * She is willing to switch to a basal bolus regimen * Discussed the benefits of continuous glucose monitoring which she had never heard of but will discuss with her physician (3) Insulin dependent type 2 diabetes mellitus: Code(s): E11.9 - Type 2 diabetes mellitus without complications; Z79.4 - [facility] (current) use of insulin Status: Acute Assessment and Plan: * 07/10 change diabetic regimen from 70/30 50 units b.i.d. to basal glargine 30 units and pre meal aspartate 8 units plus sliding scale * Adjust based on sliding scale insulin requirements (4) Coronary artery disease: Onset Date: 11/04/17 Code(s): I25.10 - Atherosclerotic heart disease of [place] coronary artery without angina pectoris Status: Acute Assessment and Plan: * Status post CABG June 15 (5) Essential hypertension: Code(s): I10 - Essential (primary) hypertension Status: Acute Assessment and Plan: * 07/10 blood pressures reviewed and adequately controlled (6) Complication of ostomy: Status: Acute Assessment and Plan: * Ostomy nurse consultation regarding leakage issues (7) Protein-calorie malnutrition, moderate: Code(s): E44.0 - Moderate protein-calorie malnutrition Status: Acute Assessment and Plan: * Albumin 2.9 07/10 * Encouraged p.o. intake Subjective Date/time seen: 07/10/24 12:17 Interval history: This unfortunate 69-year-old female was admitted from [facility] where she was rehabbing from 2 major surgeries. June 15 she underwent 4 vessel bypass. She was healing from that when she had abdominal pain and what sounds like ischemic bowel. She had a stent placed in an abdominal artery and an ostomy placed. She has had issues with the ostomy leaking. Her blood sugars have been swinging wildly up and down at the rehab facility. She did not feel good there at all. She did not feel safe. She was not eating well. She was sent to the hospital because of the widely varying blood sugars and problems with her ostomy. Currently she is having no chest pain shortness of breath or swelling. No blood in urine or stool. No focal weakness or numbness. Review of Systems Review of Systems: All systems reviewed & are unremarkable except as noted in HPI and below Exam Narrative: HEENT: PERRL, sclerae nonicteric, pharyngeal mucosa pink and intact NECK: No JVD. CHEST: Clear to auscultation. Normal effort. HEART: NL S1/S2, regular, no murmur. ABDOMEN: BS+, soft, nontender, no mass, no bruits, ostomy intact and functioning. EXTREMITIES: No cyanosis, edema, or clubbing. NEUROLOGIC: CN intact and symmetric to inspection. MUSCULOSKELETAL: Tone and strength symmetric. PSYCH: Alert. Oriented to person, place, and time. Objective Data Vital Signs Vital Signs: Vital Signs - 24 hr 07/09/24 14:49 07/09/24 14:55 07/09/24 16:00 Temperature Pulse Rate 110 H 106 H 108 H Respiratory Rate 30 H 22 H 19 Blood Pressure 136/43 L 136/43 L 132/50 L Pulse Oximetry 94 99 98 Oxygen Delivery Room Air 07/09/24 17:25 07/09/24 15:00 07/09/24 15:15 Temperature Pulse Rate 100 106 H 109 H Respiratory Rate 20 20 23 H Blood Pressure 140/46 L 137/41 L 136/39 L Pulse Oximetry 100 99 98 Oxygen Delivery 07/09/24 16:15 07/09/24 16:30 07/09/24 17:00 Temperature Pulse Rate 101 H 101 H 103 H Respiratory Rate 17 18 16 Blood Pressure 150/55 H 146/48 H 136/45 L Pulse Oximetry 99 99 99 Oxygen Delivery 07/09/24 17:15 07/09/24 17:23 07/09/24 17:46 Temperature Pulse Rate 102 H 101 H 103 H Respiratory Rate 19 17 19 Blood Pressure 138/50 L 132/66 155/58 H Pulse Oximetry 98 100 99 Oxygen Delivery 07/09/24 18:00 07/09/24 18:01 07/09/24 18:12 Temperature Pulse Rate 105 H 105 H 105 H Respiratory Rate 21 H 18 24 H Blood Pressure 159/47 H 165/58 H Pulse Oximetry 100 98 98 Oxygen Delivery 07/09/24 18:14 07/09/24 18:15 07/09/24 18:16 Temperature Pulse Rate 114 H 107 H 105 H Respiratory Rate 24 H 18 19 Blood Pressure 154/64 H 156/58 H Pulse Oximetry 97 97 97 Oxygen Delivery 07/09/24 18:31 07/09/24 20:24 07/09/24 22:22 Temperature 98.5 F Pulse Rate 99 99 98 Respiratory Rate 19 18 Blood Pressure 138/59 L 153/55 H Pulse Oximetry 99 97 Oxygen Delivery 07/09/24 22:22 07/10/24 00:02 07/10/24 05:08 Temperature 97.6 F Pulse Rate 98 90 Respiratory Rate 18 Blood Pressure 159/54 H Pulse Oximetry 97 Oxygen Delivery Room Air 07/10/24 08:24 07/10/24 08:25 07/10/24 08:25 Temperature Pulse Rate 92 94 102 H Respiratory Rate Blood Pressure 149/57 H 156/51 H 133/52 L Pulse Oximetry 100 Oxygen Delivery 07/10/24 08:42 07/10/24 09:52 Temperature Pulse Rate 92 Respiratory Rate Blood Pressure Pulse Oximetry 98 Oxygen Delivery Room Air Intake/Output Intake/Output: Intake & Output 07/07/24 07/08/24 07/09/24 07/10/24 23:59 23:59 23:59 23:59 Intake Total 2049 710 Output Total 350 Balance 2049 360 Meds/Results Medications: Active Medications Generic Name Dose Route Start Last Admin Trade Name Freq PRN Reason Stop Dose Admin Acetaminophen 650 mg 07/09/24 18:18 Acetaminophen 325 Mg Tablet PO Q4H PRN Mild Pain (1-3) or Fever Amiodarone HCl 200 mg 07/09/24 21:45 07/10/24 08:42 Amiodarone Hcl 200 Mg Tablet PO 200 mg Q12HR [place] Administration Aspirin 81 mg 07/10/24 09:00 07/10/24 08:42 Aspirin 81 Mg Enteric Tablet PO 08/09/24 08:59 81 mg DAILY [facility] Administration Bisacodyl 10 mg 07/09/24 21:43 Bisacodyl 10 Mg Suppository RECTAL DAILY PRN Constipation Clopidogrel Bisulfate 75 mg 07/10/24 09:00 07/10/24 08:43 Clopidogrel Bisulfate 75 Mg Tablet PO 75 mg DAILY [place] Administration Dextrose 12.5 gm 07/09/24 21:15 Dextrose 50% 25 Gm/50 Ml Syringe IV PUSH PRN PRN Hypoglycemia Protocol Furosemide 40 mg 07/10/24 09:00 07/10/24 08:44 Furosemide 40 Mg Tablet PO 40 mg DAILY [place] Administration Glucagon 1 mg 07/09/24 21:15 Glucagon For Inj 1 Mg Vial IM PRN PRN Hypoglycemia Protocol Glucose 15 gm 07/09/24 21:15 Glucose Oral Gel 15 Gm Of Glucse In 37.5 Gm Tube PO PRN PRN Hypoglycemia Protocol Dextrose 1,000 mls @ 100 mls/hr 07/09/24 21:15 Dextrose 5% 1,000 Ml IVPB PRN PRN Hypoglycemia Protocol Insulin Aspart 3 - 6 units 07/10/24 08:00 07/10/24 08:49 Insulin Aspart (*Bkc) 100 Units/Ml SUB-Q Not Given TIDWM [place] Protocol Insulin Aspart 1 - 3 units 07/09/24 22:19 07/09/24 22:26 Insulin Aspart (*Bkc) 100 Units/Ml SUB-Q 2 units HS [place] Administration Protocol Insulin Human Isoph/Insulin Regular 50 units 07/10/24 09:00 07/10/24 08:51 Insulin Human Isophan/Regular 70/30 (*Bkc) 100 Units/Ml SUB-Q 50 units BID [facility] Administration Losartan Potassium 100 mg 07/10/24 21:00 Losartan Potassium 100 Mg Tablet PO HS [facility] Metoprolol Succinate 50 mg 07/09/24 21:45 07/10/24 08:44 Metoprolol Succinate Ext Rel 50 Mg Tabcr PO 50 mg Q12HR [place] Administration Nifedipine 60 mg 07/10/24 09:00 07/10/24 08:46 Nifedipine 30 Mg Tab.Er.24 PO 60 mg DAILY [place] Administration Ondansetron HCl 4 mg 07/09/24 18:18 Ondansetron Inj 4 Mg/2 Ml Vial IV PUSH Q4H PRN Nausea Pantoprazole Sodium 40 mg 07/09/24 21:00 07/10/24 08:45 Pantoprazole 40 Mg Tablet PO 40 mg Q12HR [place] Administration Rosuvastatin Calcium 20 mg 07/10/24 09:00 07/10/24 08:45 Rosuvastatin 20 Mg Tablet PO 20 mg DAILY [place] Administration Senna 8.6 mg 07/09/24 21:43 Sennosides 8.6 Mg Tablet PO PRN PRN Constipation Sucralfate 1,000 mg 07/10/24 06:30 07/10/24 11:47 Sucralfate Susp 100 Mg/Ml 10 Ml Udc PO 1,000 mg ACHS [facility] Administration Trazodone HCl 50 mg 07/10/24 21:00 Trazodone Hcl 50 Mg Tablet PO HS [facility] Radiology Results: ITS Impressions Head CT 07/09/24 15:36 IMPRESSION: 1. Normal brain. Chest X-Ray 07/09/24 15:40 IMPRESSION: No acute cardiopulmonary pathology. Labs Labs: Laboratory Results - last 24 hr 07/09/24 07/09/24 07/09/24 16:00 16:02 16:28 WBC 8.2 RBC 3.75 L Hgb 11.2 L Hct 35.9 L MCV 95.7 MCH 29.9 MCHC 31.2 L RDW 16.0 H Plt Count 340 MPV 9.7 Immature Gran % (Auto) 0.5 Neut % (Auto) 79.5 H Lymph % (Auto) 10.9 L [place] % (Auto) 7.2 Eos % (Auto) 1.2 Baso % (Auto) 0.7 Lymph # (Auto) 0.89 L [place] # (Auto) 0.6 Eos # (Auto) 0.1 Baso # (Auto) 0.1 Abs Immat Gran (auto) 0.04 H Absolute Neuts (auto) 6.5 Absolute Nucleated RBC 0.000 Nucleated RBC % 0.0 PT 16.1 H INR 1.2 APTT 28.5 Sodium 132 L Potassium 5.0 Chloride 96 L Carbon Dioxide 27 Anion Gap 9 BUN 23 H Creatinine 0.90 Estim Creat Clear Calc Not Reportable Estimated GFR > 60 Glucose 388 H POC Capillary Glucose Hemoglobin A1c 5.8 H Lactic Acid 3.6 H Calcium 9.0 Magnesium Total Bilirubin 1.4 H AST 34 ALT 34 Alkaline Phosphatase 141 H C-Reactive Protein 5.3 H Total Protein 8.0 Albumin 3.7 Urine Color Yellow Urine Appearance Turbid H Urine pH 5.0 Ur Specific [place] 1.015 Urine Protein 1+ H Urine Glucose (UA) 3+ H Urine Ketones Negative Ur Blood (Man) Non-hemolyzed trace H Urine Nitrate Negative Urine Bilirubin Negative Urine Urobilinogen 0.2 Add Ur Microanalysis Reviewed Leukocyte Esterase Rfl 3+ H Urine RBC 11-20 H Urine WBC 51-100 H Ur Squamous Epith Cells Many H Urine Bacteria 1+ H Urine Casts 11-20 07/09/24 07/09/24 07/10/24 20:06 20:20 05:42 WBC 7.4 RBC 3.37 L Hgb 10.0 L Hct 32.8 L MCV 97.3 MCH 29.7 MCHC 30.5 L RDW 16.0 H Plt Count 283 MPV 9.5 Immature Gran % (Auto) Neut % (Auto) Lymph % (Auto) [place] % (Auto) Eos % (Auto) Baso % (Auto) Lymph # (Auto) [place] # (Auto) Eos # (Auto) Baso # (Auto) Abs Immat Gran (auto) Absolute Neuts (auto) Absolute Nucleated RBC Nucleated RBC % PT INR APTT Sodium 136 L Potassium 4.7 Chloride 105 Carbon Dioxide 25 Anion Gap 6 BUN 15 D Creatinine 0.80 Estim Creat Clear Calc 51 Estimated GFR > 60 Glucose 174 H POC Capillary Glucose 273 H Hemoglobin A1c Lactic Acid 2.0 Calcium 8.0 L Magnesium 1.8 Total Bilirubin 1.1 AST 23 ALT 26 Alkaline Phosphatase 116 C-Reactive Protein Total Protein 7.0 Albumin 2.9 L Urine Color Urine Appearance Urine pH Ur Specific [place] Urine Protein Urine Glucose (UA) Urine Ketones Ur Blood (Man) Urine Nitrate Urine Bilirubin Urine Urobilinogen Add Ur Microanalysis Leukocyte Esterase Rfl Urine RBC Urine WBC Ur Squamous Epith Cells Urine Bacteria Urine Casts 07/10/24 08:13 WBC RBC Hgb Hct MCV MCH MCHC RDW Plt Count MPV Immature Gran % (Auto) Neut % (Auto) Lymph % (Auto) [place] % (Auto) Eos % (Auto) Baso % (Auto) Lymph # (Auto) [place] # (Auto) Eos # (Auto) Baso # (Auto) Abs Immat Gran (auto) Absolute Neuts (auto) Absolute Nucleated RBC Nucleated RBC % PT INR APTT Sodium Potassium Chloride Carbon Dioxide Anion Gap BUN Creatinine Estim Creat Clear Calc Estimated GFR Glucose POC Capillary Glucose 162 H Hemoglobin A1c Lactic Acid Calcium Magnesium Total Bilirubin AST ALT Alkaline Phosphatase C-Reactive Protein Total Protein Albumin Urine Color Urine Appearance Urine pH Ur Specific [place] Urine Protein Urine Glucose (UA) Urine Ketones Ur Blood (Man) Urine Nitrate Urine Bilirubin Urine Urobilinogen Add Ur Microanalysis Leukocyte Esterase Rfl Urine RBC Urine WBC Ur Squamous Epith Cells Urine Bacteria Urine Casts
[2024-07-10 12:21] LABS: Glucose Point of Care 128 mg/dl (65-105)
--- NOTE | 2024-07-10 14:59 | PCOTNOTE ---
Attempted OT evaluation. Patient just finished with PT evaluation and is resting. Will follow.
[2024-07-10 17:05] LABS: Glucose Point of Care 125 mg/dl (65-105)
[2024-07-10] MEDS: INSULIN ASPART (*BKC) 100 UNITS/ML 8 UNITS SUB-Q (17:07)
[2024-07-10] MEDS: INSULIN GLARGINE (*BKC) 100 UNITS/ML 30 UNITS SUB-Q (20:49)
[2024-07-10] MEDS: traZODone HCL 50 MG TABLET PO (20:51)
[2024-07-10] MEDS: LOSARTAN POTASSIUM 100 MG TABLET PO (20:51)
--- NOTE | 2024-07-10 23:01 | P.PNCROSS_ITS ---
Event Note Event Note Event Note: 07/10/2024 at 23:00 69-year-old female past medical history of recent 4 vessel CABG 06/15/2024 complicated by bowel obstruction/bowel ischemia and/or necrosis requiring bowel resection and ostomy placement [facility] complicated by prolonged ICU stay. Patient was subsequently discharged from that facility approximately approximately 07/01/2024 who was brought into our facility due to dizziness and hypoglycemia. Patient was subsequently treated for dehydration and hypoglycemia. Nursing staff called me just before 23:00 when they noticed blood in her ostomy bag with cares. When they removed the patient's ostomy bag to further evaluate they noticed arterial spurting blood flow from the medial side of her right ostomy. When I arrived at bedside nursing staff was holding pressure. When dressing was removed the patient had a small amounts of pulsat ile bright red blood from the 9 o'clock position of the right ostomy. I held pressure and applied Surgicel. After 10 minutes of direct pressure and Surgicel patient did have brief hemostasis. However shortly thereafter the patient did develop spurting arterial blood again. I considered using silver nitrate on the wound but given that I do not experience this much I did run this by the surgeon at our facility. Although they were not involved in the patient's care or performed the patient's prior surgical procedures the reassure me that trial of silver nitrate would be appropriate. Obtain silver nitrate applied to the patient's area of bleeding. Patient no longer had pulsatile blood flow but did have some venous appearing blood from adjacent site. So nitrate was also apply to this area as well. Patient had hemostasis. The patient had been reporting some right lower quadrant pain on palpation but had not been having any abdominal pain prior to onset of bleeding. Patient was having good ostomy output although she did have evidence of some intact pills discharging from her ostomy. I was not concerned of internal hemorrhage but given patient's abdominal pain and extensive surgical history I did err on the side of caution and obtain CT of the abdomen pelvis with and without contrast. I am awaiting radiologic interpretation of his CT but on my review patient has no obvious free air or areas of active extravasation of blood but of course my interpretation is limited the scope and area of my practice. Patient's abdomen is soft with normoactive bowel sounds. Surgical cailin are in place in midline and incision is clean dry and intact. The patient is alert oriented and appropriate. Nursing staff called me a couple of hours later as a noted that when they ruled the patient for bathing the patient again developed arterial blood loss from same area. I gave instructions on holding pressure and applying Surgicel. By the time I arrived at the patient's bedside the patient had adequate hemostasis and Surgicel was well adhered to the area of bleeding. I gave instructions for frequent monitoring of wound area and to apply ostomy bag over the patient's site with care to avoid disrupting of clot. If recurrence in bleeding will place official surgical consult. 75 minute spent in critical care activities. Due to a high probability of clinically significant, life threatening deterioration, the patient required my highest level of preparedness to intervene emergently and I personally spent this critical care time directly and personally managing the patient. This critical care time included obtaining a history; examining the patient; pulse oximetry; ordering and review of studies; arranging urgent treatment with development of a management plan; evaluation of patient's response to treatment; frequent reassessment; and discussions with other providers. It was exclusive of separately billable procedures and treating other patients and teaching time. Please see Assessment and Plan section and the rest of the note for further information on patient assessment and treatment.
[2024-07-10 23:03] LABS: Glucose Point of Care 128 mg/dl (65-105)
[2024-07-10 23:13] LABS: Hematocrit 30.9 % (37.0-47.0); Hemoglobin 9.7 g/dL (12.0-15.0)
[2024-07-11 00:02] LABS: INR 1.3; Prothrombin Time 16.6 Seconds (11.1-14.7)
[2024-07-11 00:03] LABS: Partial Thromboplastin Time 29.4 Seconds (22.3-36.8)
[2024-07-11 04:43] LABS: Hematocrit 31.1 % (37.0-47.0); Hemoglobin 9.8 g/dL (12.0-15.0); Mean Corpuscular HGB Conc 31.5 g/dl (32-36); Mean Corpuscular Hemoglobin 30.1 pg (26-34); Mean Corpuscular Volume 95.4 fl (80-100); Mean Platelet Volume 9.3 fl (7.4-10.4); Platelet Count Result 269 k/mm3 (150-375); Red Blood Count 3.26 M/mm3 (4.2-5.4); Red Cell Distribution Width 15.5 % (11.5-14.5); White Blood Count 6.6 K/mm3 (4.5-10.0)
[2024-07-11 04:52] VITALS: BP 132/50; PULSE 80; RESP 16; TEMP 37.2; O2SAT 98
[2024-07-11 04:53] LABS: Anion Gap 5 mmol/L (4-12); Blood Urea Nitrogen 13 mg/dL (7-17); Calcium 8.9 mg/dL (8.4-10.2); Carbon Dioxide 29 mmol/L (22-30); Chloride 102 mmol/L (98-107); Estimated CRCL calculation 51 ml/min; Estimated Glomerular Filt Rate > 60; Glucose 122 mg/dL (65-110); Potassium 4.8 mmol/L (3.4-5.0); Sodium 136 mmol/L (137-145)
[2024-07-11 05:30] LABS: Thyroid Stimulating Hormone Reflex 0.943 uIU/mL (0.465-4.68)
[2024-07-11] MEDS: SILVER NITRATE (*SP) STICK 1 EACH TOPICAL (06:01)
[2024-07-11] MEDS: CELLULOSE OXIDIZED 4 x 8 INCH 1 PKT XX (06:01)
--- NOTE | 2024-07-11 07:49 | PCOTNOTE ---
Attempted OT evaluation, due to current medical condition RN reports not appropriate to see. Will follow.
[2024-07-11 09:07] LABS: Glucose Point of Care 149 mg/dl (65-105)
--- NOTE | 2024-07-11 09:21 | P.CONGS_ITS ---
Assessment and Plan Assessment and plan (1) Complication of ostomy: Status: Acute Assessment and Plan: no further bleeding from the ileostomy site this morning, continue watchful observation, continue to hold Plavix, okay to restart diet and replace ostomy appliance (2) Non-STEMI (non-ST elevated myocardial infarction): Onset Date: 04/06/22 Code(s): I21.4 - Non-ST elevation (NSTEMI) myocardial infarction Status: Acute Assessment and Plan: management per primary team and Cardiology History of Present Illness Consult details Consult date: 07/11/24 Reason for consult: wound care Requesting physician: Geovanna Rowe DO Narrative: The patient is a 69-year-old female with multiple medical issues that we are consulted on for bleeding from her ileostomy. The patient had a CABG and postoperatively developed ischemic bowel. The patient was emergently taken to the operating and bowel resection was performed. There are no records and the patient is unsure of exactly what happened. The patient does have an ileostomy as well as a colostomy. Apparently last night the patient had bright red blood from the ileostomy site. The patient is on Plavix. Multiple interventions were done including silver nitrate, Surgicel, and pressure. The patient has not had any further bleeding this morning. Review of Systems Review of Systems: All systems reviewed & are unremarkable except as noted in HPI and below PMFSH Past Medical History Medical History Coronary artery disease (11/04/17) Esophagitis with gastritis Hyperlipidemia Hypertension Insulin dependent type 2 diabetes mellitus Non-STEMI (non-ST elevated myocardial infarction) (04/06/22) Peptic ulcer of stomach Pneumonia due to COVID-19 virus (04/05/22) Surgical History Surgical History History of appendectomy History of coronary artery stent placement History of four vessel coronary artery bypass graft (05/2024) [facility] History of partial colectomy Family History Family History Other CHF (congestive heart failure) Social History Social History Social History: Surrogate medical decision maker: Babatunde Prakash, son ([phone]). Code status: Full code. Smoking status: Never smoker Alcohol intake: never Alcohol use details: rare alcohol use only in small amounts Substance use: never Substance use type: does not use Do You Feel Safe in your Home?: Yes Lack of Transportation: No Lack of Food: Never True Current Housing: I Have Housing Concerned About Future Housing: No Difficulty Paying Gas/Electric Bills: No Difficulty Paying for Meds: No Currently Unemployed: No Education: High School Diploma/GED Difficulty w/ Childcare or Family Care: No Living arrangements: with family Additional living arrangements comments: She lives with her brother and her beagle Vick. She has 1 son. Occupation/Education: retired Additional occupation/education comments: Worked in a longterm and in the [employer] for the [employer]. Spiritual care concerns: No Meds Home Medications and Allergies Home Medications Medication Instructions Recorded Confirmed Type losartan 100 mg tablet 100 mg PO HS 04/23/22 07/09/24 History metoprolol succinate 100 mg 50 mg PO BID 04/23/22 07/09/24 History tablet,extended release 24 hr aspirin 81 mg capsule 81 mg PO DAILY 08/08/22 07/09/24 History insulin human U-100 NPH-regulr 50 unit subcut BID 08/08/22 07/09/24 History 70-30 mix 100 unit/mL subcutaneous susp (Humulin 70/30 U-100 Insulin) rosuvastatin 20 mg tablet 20 mg PO DAILY 04/06/24 07/09/24 History sucralfate 100 mg/mL oral 10 ml PO ACHS 04/06/24 07/09/24 History suspension sennosides 8.6 mg tablet (Senokot) 8.6 mg PO PRN PRN Constipation #30 04/09/24 07/09/24 Rx tabs acetaminophen 325 mg tablet 650 mg PO Q8H PRN Pain (Scale 07/09/24 07/09/24 History Score 1-3) amiodarone 200 mg tablet 200 mg PO BID 07/09/24 07/09/24 History bisacodyl 10 mg rectal suppository 10 mg RECTAL DAILY PRN Constipation 07/09/24 07/09/24 History clopidogrel 75 mg tablet 75 mg PO DAILY 07/09/24 07/09/24 History furosemide 40 mg tablet 40 mg PO DAILY 07/09/24 07/09/24 History nifedipine 60 mg tablet,extended 60 mg PO DAILY 07/09/24 07/09/24 History release pantoprazole 40 mg tablet,delayed 40 mg PO DAILY 07/09/24 07/09/24 History release trazodone 50 mg tablet 50 mg PO HS 07/09/24 07/09/24 History Allergies Allergy/AdvReac Type Severity Reaction Status Date / Time cephalexin [Keflex] Allergy Intermediate Hives Verified 04/06/24 17:36 clopidogrel [From Plavix] Allergy Unknown Verified 07/09/24 20:12 Vital Signs Vital Signs - 24 hr 07/10/24 09:52 07/10/24 11:00 07/10/24 13:48 Temperature 36.7 C Pulse Rate 86 Respiratory Rate 18 Blood Pressure 144/44 H Pulse Oximetry 98 100 Oxygen Delivery Room Air Room Air 07/10/24 13:59 07/10/24 20:05 07/10/24 20:10 Temperature 36.8 C Pulse Rate 96 98 Respiratory Rate 18 Blood Pressure 122/50 L 127/56 L Pulse Oximetry 99 Oxygen Delivery Room Air 07/10/24 20:13 07/10/24 20:00 07/10/24 20:52 Temperature Pulse Rate 102 H 86 Respiratory Rate Blood Pressure 125/45 L 127/56 L Pulse Oximetry Oxygen Delivery 07/10/24 20:52 07/10/24 23:00 07/10/24 20:00 Temperature 37.0 C Pulse Rate 86 94 Respiratory Rate 18 Blood Pressure 162/54 H Pulse Oximetry 100 Oxygen Delivery Room Air 07/11/24 04:52 Temperature 37.2 C Pulse Rate 80 Respiratory Rate 16 Blood Pressure 132/50 L Pulse Oximetry 98 Oxygen Delivery Exam Const: General: cooperative, comfortable, no acute distress and ill appearing Resp: Auscultation: diminished lung sounds Cardio: Rate: regular rate Rhythm: regular rhythm GI: Inspection: normal to inspection, non-distended and incision GI Palp: Yes abdominal tenderness, Yes Soft to palpation, Yes Tenderness to palpation present (GI), No Guarding due to palpation present (GI) and No Rigid due to palpation Other: Midline incision with cailin, right sided ileostomy with no bleeding, left- sided colostomy Skin: General skin exam: normal color and no rashes or lesions noted Neuro: General: patient oriented x3 and CN's II-XI intact bilaterally Extrem: General: normal to inspection and full ROM Psych: Appearance: grossly normal Results Labs 07/11/24 04:37 07/11/24 04:37 Labs: Abnormal lab results 07/10/24 07/10/24 07/10/24 Range/Units 12:18 16:58 20:20 RBC (4.2-5.4) M/mm3 Hgb (12.0-15.0) g/dL Hct (37.0-47.0) % MCHC (32-36) g/dl RDW (11.5-14.5) % PT (11.1-14.7) Seconds Sodium (137-145) mmol/L Glucose (65-110) mg/dL POC Capillary Glucose 128 H 125 H 128 H (65-105) mg/dl 07/10/24 07/10/24 07/11/24 Range/Units 23:04 23:33 04:37 RBC 3.26 L (4.2-5.4) M/mm3 Hgb 9.7 L 9.8 L (12.0-15.0) g/dL Hct 30.9 L 31.1 L (37.0-47.0) % MCHC 31.5 L (32-36) g/dl RDW 15.5 H (11.5-14.5) % PT 16.6 H (11.1-14.7) Seconds Sodium 136 L (137-145) mmol/L Glucose 122 H (65-110) mg/dL POC Capillary Glucose (65-105) mg/dl 07/11/24 Range/Units 08:51 RBC (4.2-5.4) M/mm3 Hgb (12.0-15.0) g/dL Hct (37.0-47.0) % MCHC (32-36) g/dl RDW (11.5-14.5) % PT (11.1-14.7) Seconds Sodium (137-145) mmol/L Glucose (65-110) mg/dL POC Capillary Glucose 149 H (65-105) mg/dl Diabetes panel 07/11/24 Range/Units 04:37 Sodium 136 L (137-145) mmol/L Potassium 4.8 (3.4-5.0) mmol/L Chloride 102 (98-107) mmol/L Carbon Dioxide 29 (22-30) mmol/L BUN 13 (7-17) mg/dL Creatinine 0.80 (0.7-1.0) mg/dL Glucose 122 H (65-110) mg/dL Calcium 8.9 (8.4-10.2) mg/dL Calcium panel 07/11/24 Range/Units 04:37 Calcium 8.9 (8.4-10.2) mg/dL Pituitary panel 07/11/24 Range/Units 04:37 Sodium 136 L (137-145) mmol/L Potassium 4.8 (3.4-5.0) mmol/L Chloride 102 (98-107) mmol/L Carbon Dioxide 29 (22-30) mmol/L BUN 13 (7-17) mg/dL Creatinine 0.80 (0.7-1.0) mg/dL Glucose 122 H (65-110) mg/dL Calcium 8.9 (8.4-10.2) mg/dL Adrenal panel 07/11/24 Range/Units 04:37 Sodium 136 L (137-145) mmol/L Potassium 4.8 (3.4-5.0) mmol/L Chloride 102 (98-107) mmol/L Carbon Dioxide 29 (22-30) mmol/L BUN 13 (7-17) mg/dL Creatinine 0.80 (0.7-1.0) mg/dL Glucose 122 H (65-110) mg/dL Calcium 8.9 (8.4-10.2) mg/dL All other labs normal.
[2024-07-11] MEDS: ASPIRIN 81 MG ENTERIC TABLET PO (09:35)
[2024-07-11] MEDS: NIFEdipine 30 MG TAB.ER.24 60 MG PO (09:35)
[2024-07-11 09:36] VITALS: PULSE 79
[2024-07-11] MEDS: METOPROLOL SUCCINATE EXT REL 50 MG TABCR PO ×2 (09:36→20:16)
[2024-07-11] MEDS: AMIODARONE HCL 200 MG TABLET PO ×2 (09:36→20:15)
[2024-07-11] MEDS: ROSUVASTATIN 20 MG TABLET PO (09:36)
[2024-07-11] MEDS: PANTOPRAZOLE 40 MG TABLET PO ×2 (09:37→20:16)
[2024-07-11] MEDS: INSULIN ASPART (*BKC) 100 UNITS/ML 8 UNITS SUB-Q ×3 (09:39→17:32)
[2024-07-11 12:06] LABS: Glucose Point of Care 174 mg/dl (65-105)
[2024-07-11] MEDS: SUCRALFATE SUSP 100 MG/ML 10 ML UDC 1000 MG PO ×3 (12:08→20:15)
--- NOTE | 2024-07-11 13:58 | PM.IMPN ---
Progress Note: A&P Assessment and Plan (1) Labile blood glucose: Code(s): R73.09 - Other abnormal glucose Status: Acute Assessment and Plan: At home she was taking 70 units of 70/30 twice daily and at the [place] [facility] units of 70/30 twice daily She is willing to switch to a basal bolus regimen Discussed the benefits of continuous glucose monitoring which she had never heard of but will discuss with her physician 07/11 BS 149-174 on basal-bolus regimen with no hypoglycemia (2) Complication of ostomy: Status: Acute Assessment and Plan: Bleeding 07/11 early AM, stopped with topical surgiseal and silver nitrate 07/10 Plavix held and ASA continued (due to recent CABG) 07/11 Hgb stable at 9.8 Ostomy nurse consultation 07/12 regarding leakage issues (3) Dehydration: Code(s): E86.0 - Dehydration Status: Acute Assessment and Plan: Resolved after IV hydration 07/10 hold furosemide (4) Insulin dependent type 2 diabetes mellitus: Code(s): E11.9 - Type 2 diabetes mellitus without complications; Z79.4 - assisted (current) use of insulin Status: Acute Assessment and Plan: 07/10 change diabetic regimen from 70/30 50 units b.i.d. to basal glargine 30 units and pre meal aspartate 8 units plus sliding scale Adjust based on sliding scale insulin requirements (5) Coronary artery disease: Onset Date: 11/04/17 Code(s): I25.10 - Atherosclerotic heart disease of [place] coronary artery without angina pectoris Status: Acute Assessment and Plan: Status post CABG June 1507/10 Plavix held due to bleeding, ASA continued (6) Essential hypertension: Code(s): I10 - Essential (primary) hypertension Status: Acute Assessment and Plan: 07/11 blood pressures reviewed and adequately controlled (7) Protein-calorie malnutrition, moderate: Code(s): E44.0 - Moderate protein-calorie malnutrition Status: Acute Assessment and Plan: Albumin 2.9 07/10 Encouraged p.o. intake Subjective Date/time seen: 07/11/24 13:58 Interval history: Bleeding from stoma overnight. Cross coverage hospitalist was able to get bleeding stopped with silver nitrate and SurgiSeal. Irritation around stoma is chronic. No chest pain or shortness of breath or abdominal pain. No blood in stool or urine. Review of Systems Review of Systems: All systems reviewed & are unremarkable except as noted in HPI and below Exam Narrative: HEENT: PERRL, sclerae nonicteric, pharyngeal mucosa pink and intact NECK: No JVD. CHEST: Clear to auscultation. Normal effort. HEART: NL S1/S2, regular, no murmur. ABDOMEN: BS+, soft, nontender, no mass, no bruits, ostomy intact and functioning. EXTREMITIES: No cyanosis, edema, or clubbing. NEUROLOGIC: CN intact and symmetric to inspection. MUSCULOSKELETAL: Tone and strength symmetric. PSYCH: Alert. Oriented to person, place, and time. Objective Data Vital Signs Vital Signs: Vital Signs - 24 hr 07/10/24 13:59 07/10/24 20:05 07/10/24 20:10 Temperature 98.2 F Pulse Rate 96 98 Respiratory Rate 18 Blood Pressure 122/50 L 127/56 L Pulse Oximetry 99 Oxygen Delivery Room Air 07/10/24 20:13 07/10/24 20:00 07/10/24 20:52 Temperature Pulse Rate 102 H 86 Respiratory Rate Blood Pressure 125/45 L 127/56 L Pulse Oximetry Oxygen Delivery 07/10/24 20:52 07/10/24 23:00 07/10/24 20:00 Temperature 98.6 F Pulse Rate 86 94 Respiratory Rate 18 Blood Pressure 162/54 H Pulse Oximetry 100 Oxygen Delivery Room Air 07/11/24 04:52 07/11/24 09:36 07/11/24 09:36 Temperature 99 F Pulse Rate 80 79 79 Respiratory Rate 16 Blood Pressure 132/50 L Pulse Oximetry 98 Oxygen Delivery 07/11/24 09:40 Temperature Pulse Rate Respiratory Rate Blood Pressure Pulse Oximetry Oxygen Delivery Room Air Intake/Output Intake/Output: Intake & Output 07/08/24 07/09/24 07/10/24 07/11/24 23:59 23:59 23:59 23:59 Intake Total 2049 1320 850 Output Total 1550 500 Balance 2049 -230 350 Meds/Results Medications: Active Medications Generic Name Dose Route Start Last Admin Trade Name Freq PRN Reason Stop Dose Admin Acetaminophen 650 mg 07/09/24 18:18 Acetaminophen 325 Mg Tablet PO Q4H PRN Mild Pain (1-3) or Fever Amiodarone HCl 200 mg 07/09/24 21:45 07/11/24 09:36 Amiodarone Hcl 200 Mg Tablet PO 200 mg Q12HR [facility] Administration Aspirin 81 mg 07/10/24 09:00 07/11/24 09:35 Aspirin 81 Mg Enteric Tablet PO 08/09/24 08:59 81 mg DAILY [facility] Administration Bisacodyl 10 mg 07/09/24 21:43 Bisacodyl 10 Mg Suppository RECTAL DAILY PRN Constipation Clopidogrel Bisulfate 75 mg 07/10/24 09:00 07/10/24 08:43 Clopidogrel Bisulfate 75 Mg Tablet PO 75 mg DAILY [facility] Administration Dextrose 12.5 gm 07/09/24 21:15 Dextrose 50% 25 Gm/50 Ml Syringe IV PUSH PRN PRN Hypoglycemia Protocol Furosemide 40 mg 07/10/24 09:00 07/10/24 08:44 Furosemide 40 Mg Tablet PO 40 mg DAILY [facility] Administration Glucagon 1 mg 07/09/24 21:15 Glucagon For Inj 1 Mg Vial IM PRN PRN Hypoglycemia Protocol Glucose 15 gm 07/09/24 21:15 Glucose Oral Gel 15 Gm Of Glucse In 37.5 Gm Tube PO PRN PRN Hypoglycemia Protocol Dextrose 1,000 mls @ 100 mls/hr 07/09/24 21:15 Dextrose 5% 1,000 Ml IVPB PRN PRN Hypoglycemia Protocol Insulin Aspart 3 - 6 units 07/10/24 08:00 07/11/24 12:07 Insulin Aspart (*Bkc) 100 Units/Ml SUB-Q Not Given TIDWM [facility] Protocol Insulin Aspart 1 - 3 units 07/09/24 22:19 07/10/24 20:52 Insulin Aspart (*Bkc) 100 Units/Ml SUB-Q Not Given HS [facility] Protocol Insulin Aspart 8 units 07/10/24 17:00 07/11/24 12:09 Insulin Aspart (*Bkc) 100 Units/Ml SUB-Q 8 units TIDWM [facility] Administration Insulin Glargine 30 units 07/10/24 21:00 07/10/24 20:49 Insulin Glargine (*Bkc) 100 Units/Ml SUB-Q 30 units HS [facility] Administration Losartan Potassium 100 mg 07/10/24 21:00 07/10/24 20:51 Losartan Potassium 100 Mg Tablet PO 100 mg HS [facility] Administration Metoprolol Succinate 50 mg 07/09/24 21:45 07/11/24 09:36 Metoprolol Succinate Ext Rel 50 Mg Tabcr PO 50 mg Q12HR [facility] Administration Nifedipine 60 mg 07/10/24 09:00 07/11/24 09:35 Nifedipine 30 Mg Tab.Er.24 PO 60 mg DAILY [facility] Administration Ondansetron HCl 4 mg 07/09/24 18:18 Ondansetron Inj 4 Mg/2 Ml Vial IV PUSH Q4H PRN Nausea Pantoprazole Sodium 40 mg 07/09/24 21:00 07/11/24 09:37 Pantoprazole 40 Mg Tablet PO 40 mg Q12HR [facility] Administration Rosuvastatin Calcium 20 mg 07/10/24 09:00 07/11/24 09:36 Rosuvastatin 20 Mg Tablet PO 20 mg DAILY [facility] Administration Senna 8.6 mg 07/09/24 21:43 Sennosides 8.6 Mg Tablet PO PRN PRN Constipation Sucralfate 1,000 mg 07/10/24 06:30 07/11/24 12:08 Sucralfate Susp 100 Mg/Ml 10 Ml Udc PO 1,000 mg ACHS [facility] Administration Trazodone HCl 50 mg 07/10/24 21:00 07/10/24 20:51 Trazodone Hcl 50 Mg Tablet PO 50 mg HS [facility] Administration Radiology Results: ITS Impressions Head CT 07/09/24 15:36 IMPRESSION: 1. Normal brain. Chest X-Ray 07/09/24 15:40 IMPRESSION: No acute cardiopulmonary pathology. Abdomen/Pelvis CT 07/11/24 07:45 IMPRESSION: 1. Small pleural effusions. 2. Small pericardial effusion. 3. Stranding in the abdomen, consistent with inflammation versus edema. Labs Labs: Laboratory Results - last 24 hr 07/10/24 07/10/24 07/10/24 16:58 20:20 23:04 WBC RBC Hgb 9.7 L Hct 30.9 L MCV MCH MCHC RDW Plt Count MPV PT INR APTT Sodium Potassium Chloride Carbon Dioxide Anion Gap BUN Creatinine Estim Creat Clear Calc Estimated GFR Glucose POC Capillary Glucose 125 H 128 H Calcium TSH (Reflex) 07/10/24 07/11/24 07/11/24 23:33 04:37 08:51 WBC 6.6 RBC 3.26 L Hgb 9.8 L Hct 31.1 L MCV 95.4 MCH 30.1 MCHC 31.5 L RDW 15.5 H Plt Count 269 MPV 9.3 PT 16.6 H INR 1.3 APTT 29.4 Sodium 136 L Potassium 4.8 Chloride 102 Carbon Dioxide 29 Anion Gap 5 BUN 13 Creatinine 0.80 Estim Creat Clear Calc 51 Estimated GFR > 60 Glucose 122 H POC Capillary Glucose 149 H Calcium 8.9 TSH (Reflex) 0.943 07/11/24 11:59 WBC RBC Hgb Hct MCV MCH MCHC RDW Plt Count MPV PT INR APTT Sodium Potassium Chloride Carbon Dioxide Anion Gap BUN Creatinine Estim Creat Clear Calc Estimated GFR Glucose POC Capillary Glucose 174 H Calcium TSH (Reflex)
[2024-07-11 14:00] VITALS: BP 132/46; PULSE 83; RESP 20; TEMP 36.6; O2SAT 100
[2024-07-11 17:10] LABS: Glucose Point of Care 130 mg/dl (65-105)
[2024-07-11] MEDS: INSULIN GLARGINE (*BKC) 100 UNITS/ML 30 UNITS SUB-Q (20:11)
[2024-07-11 20:15] VITALS: BP 124/48; PULSE 79; RESP 20; TEMP 36.8; O2SAT 100
[2024-07-11 20:16] VITALS: PULSE 79
[2024-07-11] MEDS: traZODone HCL 50 MG TABLET PO (20:16)
[2024-07-11] MEDS: LOSARTAN POTASSIUM 100 MG TABLET PO (20:16)
[2024-07-11 20:52] LABS: Glucose Point of Care 186 mg/dl (65-105)
[2024-07-12] VITALS (7 sets, daily range): BP systolic 124–139; BP diastolic 44–58; PULSE 64–93; RESP 18–20; TEMP 36.4–37; O2SAT 97–100
[2024-07-12] MEDS: SUCRALFATE SUSP 100 MG/ML 10 ML UDC 1000 MG PO ×4 (06:04→20:30)
[2024-07-12 08:23] LABS: Glucose Point of Care 140 mg/dl (65-105)
[2024-07-12] MEDS: NIFEdipine 30 MG TAB.ER.24 60 MG PO (09:22)
[2024-07-12] MEDS: ROSUVASTATIN 20 MG TABLET PO (09:23)
[2024-07-12] MEDS: AMIODARONE HCL 200 MG TABLET PO ×2 (09:23→20:30)
[2024-07-12] MEDS: ASPIRIN 81 MG ENTERIC TABLET PO (09:25)
[2024-07-12] MEDS: PANTOPRAZOLE 40 MG TABLET PO ×2 (09:25→20:30)
[2024-07-12] MEDS: METOPROLOL SUCCINATE EXT REL 50 MG TABCR PO ×2 (09:25→20:30)
[2024-07-12] MEDS: INSULIN ASPART (*BKC) 100 UNITS/ML 8 UNITS SUB-Q ×3 (09:26→17:56)
--- NOTE | 2024-07-12 11:13 | PM.PNGS ---
Progress Note: A&P Assessment and Plan (1) Complication of ostomy: Status: Acute Assessment and Plan: No further bleeding from the ileostomy site, continue to hold Plavix, no need for surgical intervention. Will sign off at this point. Call with any surgical questions or concern. Discussed with the patient that she needs to follow-up with her surgeon as an outpatient as scheduled. (2) Non-STEMI (non-ST elevated myocardial infarction): Onset Date: 04/06/22 Code(s): I21.4 - Non-ST elevation (NSTEMI) myocardial infarction Status: Acute Assessment and Plan: management per primary team and Cardiology Plan I have discussed the patient's case and plan of care with Dr. Alex. Subjective Subjective Date/Time Seen: 07/12/24 11:13 Interval history: Patient seen today. Nurse at the bedside as well. No issues with bleeding from the ileostomy site overnight. Plavix still on hold. Exam Const: General: comfortable and no acute distress Orientation/consciousness: patient oriented x3 GI: Inspection: non-distended GI Palp: Yes Soft to palpation, No Tenderness to palpation present (GI) and No Guarding due to palpation present (GI) Auscultation: normal bowel sounds Other: Ileostomy functioning well, no bleeding, ostomy appliance in place. Midline incision healing well with cailin in place. No erythema or drainage. Mucous fistula left of midline, stoma pink and healthy, ostomy appliance in place. Objective Data Vital Signs Vital Signs: Vital Signs - 24 hr 07/11/24 14:00 07/11/24 20:15 07/11/24 20:15 Temperature 97.9 F 98.2 F Pulse Rate 83 79 79 Respiratory Rate 20 20 Blood Pressure 132/46 L 124/48 L Pulse Oximetry 100 100 07/11/24 20:16 07/12/24 06:00 07/12/24 09:23 Temperature 97.6 F Pulse Rate 79 80 93 Respiratory Rate 18 Blood Pressure 134/44 L Pulse Oximetry 97 07/12/24 09:25 Temperature Pulse Rate 93 Respiratory Rate Blood Pressure Pulse Oximetry Intake/Output Intake/Output: Intake & Output 07/09/24 07/10/24 07/11/24 07/12/24 23:59 23:59 23:59 23:59 Intake Total 2049 1320 1900 170 Output Total 1550 1975 500 Balance 205 -230 -75 -330 Meds/Results Medications: Active Medications Generic Name Dose Route Start Last Admin Trade Name Freq PRN Reason Stop Dose Admin Acetaminophen 650 mg 07/09/24 18:18 Acetaminophen 325 Mg Tablet PO Q4H PRN Mild Pain (1-3) or Fever Amiodarone HCl 200 mg 07/09/24 21:45 07/12/24 09:23 Amiodarone Hcl 200 Mg Tablet PO 200 mg Q12HR [facility] Administration Aspirin 81 mg 07/10/24 09:00 07/12/24 09:25 Aspirin 81 Mg Enteric Tablet PO 08/09/24 08:59 81 mg DAILY [facility] Administration Bisacodyl 10 mg 07/09/24 21:43 Bisacodyl 10 Mg Suppository RECTAL DAILY PRN Constipation Clopidogrel Bisulfate 75 mg 07/10/24 09:00 07/10/24 08:43 Clopidogrel Bisulfate 75 Mg Tablet PO 75 mg DAILY [facility] Administration Dextrose 12.5 gm 07/09/24 21:15 Dextrose 50% 25 Gm/50 Ml Syringe IV PUSH PRN PRN Hypoglycemia Protocol Furosemide 40 mg 07/10/24 09:00 07/10/24 08:44 Furosemide 40 Mg Tablet PO 40 mg DAILY [facility] Administration Glucagon 1 mg 07/09/24 21:15 Glucagon For Inj 1 Mg Vial IM PRN PRN Hypoglycemia Protocol Glucose 15 gm 07/09/24 21:15 Glucose Oral Gel 15 Gm Of Glucse In 37.5 Gm Tube PO PRN PRN Hypoglycemia Protocol Dextrose 1,000 mls @ 100 mls/hr 07/09/24 21:15 Dextrose 5% 1,000 Ml IVPB PRN PRN Hypoglycemia Protocol Insulin Aspart 3 - 6 units 07/10/24 08:00 07/12/24 08:33 Insulin Aspart (*Bkc) 100 Units/Ml SUB-Q Not Given [facility] Protocol Insulin Aspart 1 - 3 units 07/09/24 22:19 07/11/24 20:11 Insulin Aspart (*Bkc) 100 Units/Ml SUB-Q Not Given HS [facility] Protocol Insulin Aspart 8 units 07/10/24 17:00 07/12/24 09:26 Insulin Aspart (*Bkc) 100 Units/Ml SUB-Q 8 units TIDWM [facility] Administration Insulin Glargine 30 units 07/10/24 21:00 07/11/24 20:11 Insulin Glargine (*Bkc) 100 Units/Ml SUB-Q 30 units HS [facility] Administration Losartan Potassium 100 mg 07/10/24 21:00 07/11/24 20:16 Losartan Potassium 100 Mg Tablet PO 100 mg HS [facility] Administration Metoprolol Succinate 50 mg 07/09/24 21:45 07/12/24 09:25 Metoprolol Succinate Ext Rel 50 Mg Tabcr PO 50 mg Q12HR [facility] Administration Nifedipine 60 mg 07/10/24 09:00 07/12/24 09:22 Nifedipine 30 Mg Tab.Er.24 PO 60 mg DAILY [facility] Administration Ondansetron HCl 4 mg 07/09/24 18:18 Ondansetron Inj 4 Mg/2 Ml Vial IV PUSH Q4H PRN Nausea Pantoprazole Sodium 40 mg 07/09/24 21:00 07/12/24 09:25 Pantoprazole 40 Mg Tablet PO 40 mg Q12HR [facility] Administration Rosuvastatin Calcium 20 mg 07/10/24 09:00 07/12/24 09:23 Rosuvastatin 20 Mg Tablet PO 20 mg DAILY [facility] Administration Senna 8.6 mg 07/09/24 21:43 Sennosides 8.6 Mg Tablet PO PRN PRN Constipation Sucralfate 1,000 mg 07/10/24 06:30 07/12/24 06:04 Sucralfate Susp 100 Mg/Ml 10 Ml Udc PO 1,000 mg ACHS [facility] Administration Trazodone HCl 50 mg 07/10/24 21:00 07/11/24 20:16 Trazodone Hcl 50 Mg Tablet PO 50 mg HS [facility] Administration Radiology Results: ITS Impressions Head CT 07/09/24 15:36 IMPRESSION: 1. Normal brain. Chest X-Ray 07/09/24 15:40 IMPRESSION: No acute cardiopulmonary pathology. Abdomen/Pelvis CT 07/11/24 07:45 IMPRESSION: 1. Small pleural effusions. 2. Small pericardial effusion. 3. Stranding in the abdomen, consistent with inflammation versus edema. Labs Labs: Laboratory Results - last 24 hr 07/11/24 07/11/24 07/11/24 11:59 17:04 20:09 POC Capillary Glucose 174 H 130 H 186 H 07/12/24 08:14 POC Capillary Glucose 140 H
[2024-07-12 12:22] LABS: Glucose Point of Care 137 mg/dl (65-105)
[2024-07-12 17:13] LABS: Glucose Point of Care 161 mg/dl (65-105)
--- NOTE | 2024-07-12 18:50 | PM.IMPN ---
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 She had bright red blood from the ileostomy on 07/11. Multiple interventions and surgery followin. Interventions include silver nitrate, Surgicel and pressure. Holding Plavix Bleeding 07/11 early AM, stopped with topical SurgiSeal and silver nitrate 07/10 Plavix held and ASA continued (due to recent CABG) 07/11 Hgb stable at 9.8 Ostomy nurse consultation 07/12 regarding leakage issues, appreciate assistance (2) Dehydration: Code(s): E86.0 - Dehydration Status: Acute Assessment and Plan: Resolved after IV hydration 07/10 hold furosemide (3) Insulin dependent type 2 diabetes mellitus: Code(s): E11.9 - Type 2 diabetes mellitus without complications; Z79.4 - FDC (current) use of insulin Status: Acute Assessment and Plan: Home meds: 70 units of 70/30 twice daily and at the [facility] 50 units of 70/30 twice daily Switched to basal/bolus: Lovolog 8units TID, Lantus 30 hs Discussed the benefits of continuous glucose monitoring, she will discuss with her outpatient physician 07/11 BS 149-174 on basal-bolus regimen with no hypoglycemia (4) Coronary artery disease: Onset Date: 11/04/17 Code(s): I25.10 - Atherosclerotic heart disease of [place] coronary artery without angina pectoris Status: Acute Assessment and Plan: Status post CABG June 15. Plavix held 07/10 due to bleeding --continue aspirin --continue to Plavix per surgery recs for bleeding ostomy (5) Essential hypertension: Code(s): I10 - Essential (primary) hypertension Status: Acute Assessment and Plan: Home meds: furosemide 40 daily, losartan 100, metoprolol succinate 50 b.i.d., nifedipine 60 daily blood pressures reviewed and adequately controlled, 122-162/44-56 in the last 3 days --continue to hold furosemide --continue losartan, metoprolol, nifedipine at home doses --restart furosemide as able (6) Protein-calorie malnutrition, moderate: Code(s): E44.0 - Moderate protein-calorie malnutrition Status: Acute Assessment and Plan: Albumin 2.9 07/10. Encouraged p.o. intake Time Spent With Patient Time: 59 minutes Subjective Date/time seen: 07/12/24 15:30 Interval history: Doing well today, eating sugar free birthday cake that her brother made (birthday was [birth year]). Has an appetite. No acute issues, no bleeding. Holding plavix Review of Systems Review of Systems: 12 systems were reviewed and are negative except for as per HPI. All systems reviewed & are unremarkable except as noted in HPI and below Exam Narrative: HEENT: PERRL, sclerae nonicteric, pharyngeal mucosa pink and intact NECK: No JVD. CHEST: Clear to auscultation. Normal effort. HEART: NL S1/S2, regular, no murmur. ABDOMEN: BS+, soft, nontender, no mass, no bruits, ostomy x2 intact and functioning. No bleeding, somas pink EXTREMITIES: No cyanosis, edema, or clubbing. NEUROLOGIC: CN intact and symmetric to inspection. MUSCULOSKELETAL: Tone and strength symmetric. PSYCH: Alert. Oriented to person, place, and time. Objective Data Vital Signs Vital Signs: Vital Signs - 24 hr 07/11/24 20:15 07/11/24 20:15 07/11/24 20:16 Temperature 98.2 F Pulse Rate 79 79 79 Respiratory Rate 20 Blood Pressure 124/48 L Pulse Oximetry 100 Oxygen Delivery 07/12/24 06:00 07/12/24 09:23 07/12/24 09:25 Temperature 97.6 F Pulse Rate 80 93 93 Respiratory Rate 18 Blood Pressure 134/44 L Pulse Oximetry 97 Oxygen Delivery 07/12/24 09:20 07/12/24 14:00 Temperature 98.6 F Pulse Rate 84 Respiratory Rate 18 Blood Pressure 124/50 L Pulse Oximetry 100 Oxygen Delivery Room Air Intake/Output Intake/Output: Intake & Output 07/09/24 07/10/24 07/11/24 07/12/24 23:59 23:59 23:59 23:59 Intake Total 2049 1320 1900 960 Output Total 1550 1975 700 Balance 2049230 260 Meds/Results Medications: Active Medications Generic Name Dose Route Start Last Admin Trade Name Freq PRN Reason Stop Dose Admin Acetaminophen 650 mg 07/09/24 18:18 Acetaminophen 325 Mg Tablet PO Q4H PRN Mild Pain (1-3) or Fever Amiodarone HCl 200 mg 10/11/24 21:45 07/12/24 09:23 Amiodarone Hcl 200 Mg Tablet PO 200 mg Q12HR [facility] Administration Aspirin 81 mg 07/10/24 09:00 07/12/24 09:25 Aspirin 81 Mg Enteric Tablet PO 08/09/24 08:59 81 mg DAILY [facility] Administration Bisacodyl 10 mg 07/09/24 21:43 Bisacodyl 10 Mg Suppository RECTAL DAILY PRN Constipation Clopidogrel Bisulfate 75 mg 07/10/24 09:00 07/10/24 08:43 Clopidogrel Bisulfate 75 Mg Tablet PO 75 mg DAILY [facility] Administration Dextrose 12.5 gm 07/09/24 21:15 Dextrose 50% 25 Gm/50 Ml Syringe IV PUSH PRN PRN Hypoglycemia Protocol Furosemide 40 mg 07/10/24 09:00 07/10/24 08:44 Furosemide 40 Mg Tablet PO 40 mg DAILY [facility] Administration Glucagon 1 mg 07/09/24 21:15 Glucagon For Inj 1 Mg Vial IM PRN PRN Hypoglycemia Protocol Glucose 15 gm 07/09/24 21:15 Glucose Oral Gel 15 Gm Of Glucse In 37.5 Gm Tube PO PRN PRN Hypoglycemia Protocol Dextrose 1,000 mls @ 100 mls/hr 07/09/24 21:15 Dextrose 5% 1,000 Ml IVPB PRN PRN Hypoglycemia Protocol Insulin Aspart 3 - 6 units 07/10/24 08:00 07/12/24 17:53 Insulin Aspart (*Bkc) 100 Units/Ml SUB-Q Not Given TIDWM [facility] Protocol Insulin Aspart 1 - 3 units 07/09/24 22:19 07/11/24 20:11 Insulin Aspart (*Bkc) 100 Units/Ml SUB-Q Not Given HS [facility] Protocol Insulin Aspart 8 units 07/10/24 17:00 07/12/24 17:56 Insulin Aspart (*Bkc) 100 Units/Ml SUB-Q 8 units TIDWM [facility] Administration Insulin Glargine 30 units 07/10/24 21:00 07/11/24 20:11 Insulin Glargine (*Bkc) 100 Units/Ml SUB-Q 30 units HS [facility] Administration Losartan Potassium 100 mg 07/10/24 21:00 07/11/24 20:16 Losartan Potassium 100 Mg Tablet PO 100 mg HS [facility] Administration Metoprolol Succinate 50 mg 07/09/24 21:45 07/12/24 09:25 Metoprolol Succinate Ext Rel 50 Mg Tabcr PO 50 mg Q12HR [facility] Administration Nifedipine 60 mg 07/10/24 09:00 07/12/24 09:22 Nifedipine 30 Mg Tab.Er.24 PO 60 mg DAILY [facility] Administration Ondansetron HCl 4 mg 07/09/24 18:18 Ondansetron Inj 4 Mg/2 Ml Vial IV PUSH Q4H PRN Nausea Pantoprazole Sodium 40 mg 07/09/24 21:00 07/12/24 09:25 Pantoprazole 40 Mg Tablet PO 40 mg Q12HR [facility] Administration Rosuvastatin Calcium 20 mg 07/10/24 09:00 07/12/24 09:23 Rosuvastatin 20 Mg Tablet PO 20 mg DAILY [facility] Administration Senna 8.6 mg 07/09/24 21:43 Sennosides 8.6 Mg Tablet PO PRN PRN Constipation Sucralfate 1,000 mg 07/10/24 06:30 07/12/24 17:03 Sucralfate Susp 100 Mg/Ml 10 Ml Udc PO 1,000 mg ACHS [facility] Administration Trazodone HCl 50 mg 07/10/24 21:00 07/11/24 20:16 Trazodone Hcl 50 Mg Tablet PO 50 mg HS [facility] Administration Radiology Results: ITS Impressions Head CT 07/09/24 15:36 IMPRESSION: 1. Normal brain. Chest X-Ray 07/09/24 15:40 IMPRESSION: No acute cardiopulmonary pathology. Abdomen/Pelvis CT 07/11/24 07:45 IMPRESSION: 1. Small pleural effusions. 2. Small pericardial effusion. 3. Stranding in the abdomen, consistent with inflammation versus edema. Labs Labs: Laboratory Results - last 24 hr 07/11/24 07/12/24 07/12/24 20:09 08:14 12:14 POC Capillary Glucose 186 H 140 H 137 H 07/12/24 17:02 POC Capillary Glucose 161 H Quality VTE Prophylaxis VTE prophylaxis: mechanical ordered Hospitalist MIPS Advance Care Plan I have confirmed that the patient's Advanced Care Plan is present, code status is documented, or surrogate decision maker is listed in patient medical record.: Yes Medication Reconciliation I have utilized all available resources to obtain, update and review the patients current medications (includes all prescriptions, OTC, herbals, cannabis, and nutritional supplements).: Yes
[2024-07-12 20:16] LABS: Glucose Point of Care 181 mg/dl (65-105)
[2024-07-12] MEDS: INSULIN GLARGINE (*BKC) 100 UNITS/ML 30 UNITS SUB-Q (20:29)
[2024-07-12] MEDS: traZODone HCL 50 MG TABLET PO (20:30)
[2024-07-12] MEDS: LOSARTAN POTASSIUM 100 MG TABLET PO (20:30)
[2024-07-13] VITALS (8 sets, daily range): BP systolic 121–145; BP diastolic 49–56; PULSE 79–90; RESP 16–20; TEMP 36.1–36.9; O2SAT 100
[2024-07-13] MEDS: SUCRALFATE SUSP 100 MG/ML 10 ML UDC 1000 MG PO ×4 (05:27→20:05)
[2024-07-13 08:24] LABS: Glucose Point of Care 163 mg/dl (65-105)
[2024-07-13] MEDS: ROSUVASTATIN 20 MG TABLET PO (08:24)
[2024-07-13] MEDS: AMIODARONE HCL 200 MG TABLET PO ×2 (08:24→20:05)
[2024-07-13] MEDS: PANTOPRAZOLE 40 MG TABLET PO ×2 (08:25→20:06)
[2024-07-13] MEDS: ASPIRIN 81 MG ENTERIC TABLET PO (08:25)
[2024-07-13] MEDS: METOPROLOL SUCCINATE EXT REL 50 MG TABCR PO ×2 (08:25→20:06)
[2024-07-13] MEDS: NIFEdipine 30 MG TAB.ER.24 60 MG PO (08:25)
[2024-07-13] MEDS: INSULIN ASPART (*BKC) 100 UNITS/ML 8 UNITS SUB-Q ×3 (09:11→17:08)
--- NOTE | 2024-07-13 09:19 | P.PNIM_ITS ---
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 She had bright red blood from the ileostomy on 07/11. Multiple interventions and surgery followin. Interventions include silver nitrate, Surgicel and pressure. Holding Plavix Bleeding 07/11 early AM, stopped with topical SurgiSeal and silver nitrate * 07/10 Plavix held and ASA continued (due to recent CABG) * Hgb stable, 9-10 * Ostomy nurse consultation 07/12 regarding leakage issues, appreciate assistance * Continue to follow CBC * Patient reports pills are whole in ostomy. Can't change most of them to liquid, try crushing and putting in applesauce if she can tolerate them (2) Dehydration: Code(s): E86.0 - Dehydration Status: Acute Assessment and Plan: Resolved after IV hydration 07/10 hold furosemide (3) Insulin dependent type 2 diabetes mellitus: Code(s): E11.9 - Type 2 diabetes mellitus without complications; Z79.4 - correction (current) use of insulin Status: Acute Assessment and Plan: Home meds: 70 units of 70/30 twice daily and at the retirement 50 units of 70/30 twice daily * Switched to basal/bolus: Lovolog 8units TID, Lantus 30 hs * Discussed the benefits of continuous glucose monitoring, she will discuss with her outpatient physician * Blood sugars relatively controlled, 130-160, occasional blood sugar over 200 and no hypoglycemia (4) Coronary artery disease: Onset Date: 11/04/17 Code(s): I25.10 - Atherosclerotic heart disease of [place] coronary artery without angina pectoris Status: Acute Assessment and Plan: Status post CABG June 15. Plavix held 07/10 due to bleeding --continue aspirin --continue to Plavix per surgery recs for bleeding ostomy (5) Essential hypertension: Code(s): I10 - Essential (primary) hypertension Status: Acute Assessment and Plan: Home meds: furosemide 40 daily, losartan 100, metoprolol succinate 50 b.i.d., nifedipine 60 daily blood pressures reviewed and adequately controlled, 122-162/44-56 in the last 3 days --continue to hold furosemide --continue losartan, metoprolol, nifedipine at home doses --restart furosemide as able (6) Protein-calorie malnutrition, moderate: Code(s): E44.0 - Moderate protein-calorie malnutrition Status: Acute Assessment and Plan: Albumin 2.9 07/10. Encouraged p.o. intake Time Spent With Patient Time: 57 minutes Subjective Date/time seen: 07/13/24 09:19 Interval history: No bleeding, and feeling ok. H&H stable. She reported pills in ostomy bag were still whole Review of Systems Review of Systems: 12 systems were reviewed and are negativ e except for as per HPI. All systems reviewed & are unremarkable except as noted in HPI and below Exam Narrative: HEENT: PERRL, sclerae nonicteric, pharyngeal mucosa pink and intact NECK: No JVD. CHEST: Clear to auscultation. Normal effort. HEART: NL S1/S2, regular, no murmur. ABDOMEN: BS+, soft, nontender, no mass, no bruits, ostomy x2 intact and functioning. No bleeding, somas pink EXTREMITIES: No cyanosis, edema, or clubbing. NEUROLOGIC: CN intact and symmetric to inspection. MUSCULOSKELETAL: Tone and strength symmetric. PSYCH: Alert. Oriented to person, place, and time. Objective Data Vital Signs Vital Signs: Vital Signs - 24 hr 07/12/24 09:23 07/12/24 09:25 07/12/24 09:20 Temperature Pulse Rate 93 93 Respiratory Rate Blood Pressure Pulse Oximetry Oxygen Delivery Room Air 07/12/24 14:00 07/12/24 20:30 07/12/24 20:30 Temperature 98.6 F Pulse Rate 84 79 79 Respiratory Rate 18 Blood Pressure 124/50 L Pulse Oximetry 100 Oxygen Delivery 07/12/24 21:15 07/12/24 21:16 07/13/24 06:00 Temperature 98.2 F 98.2 F 98.4 F Pulse Rate 79 64 79 Respiratory Rate 20 20 16 Blood Pressure 139/56 L 129/58 L 124/51 L Pulse Oximetry 100 100 100 Oxygen Delivery 07/13/24 08:24 07/13/24 08:25 Temperature Pulse Rate 88 88 Respiratory Rate Blood Pressure Pulse Oximetry Oxygen Delivery Intake/Output Intake/Output: Intake & Output 07/10/24 07/11/24 07/12/24 07/13/24 23:59 23:59 23:59 23:59 Intake Total 1320 1900 960 500 Output Total 0700 1699 1538 792 Balance -230 -75 -340 -350 Meds/Results Medications: Active Medications Generic Name Dose Route Start Last Admin Trade Name Freq PRN Reason Stop Dose Admin Acetaminophen 650 mg 07/09/24 18:18 Acetaminophen 325 Mg Tablet PO Q4H PRN Mild Pain (1-3) or Fever Amiodarone HCl 200 mg 07/09/24 21:45 07/13/24 08:24 Amiodarone Hcl 200 Mg Tablet PO 200 mg Q12HR [facility] Administration Aspirin 81 mg 07/10/24 09:00 07/13/24 08:25 Aspirin 81 Mg Enteric Tablet PO 08/09/24 08:59 81 mg DAILY [facility] Administration Bisacodyl 10 mg 07/09/24 21:43 Bisacodyl 10 Mg Suppository RECTAL DAILY PRN Constipation Clopidogrel Bisulfate 75 mg 07/10/24 09:00 07/10/24 08:43 Clopidogrel Bisulfate 75 Mg Tablet PO 75 mg DAILY [facility] Administration Dextrose 12.5 gm 07/09/24 21:15 Dextrose 50% 25 Gm/50 Ml Syringe IV PUSH PRN PRN Hypoglycemia Protocol Furosemide 40 mg 07/10/24 09:00 07/10/24 08:44 Furosemide 40 Mg Tablet PO 40 mg DAILY [facility] Administration Glucagon 1 mg 07/09/24 21:15 Glucagon For Inj 1 Mg Vial IM PRN PRN Hypoglycemia Protocol Glucose 15 gm 07/09/24 21:15 Glucose Oral Gel 15 Gm Of Glucse In 37.5 Gm Tube PO PRN PRN Hypoglycemia Protocol Dextrose 1,000 mls @ 100 mls/hr 07/09/24 21:15 Dextrose 5% 1,000 Ml IVPB PRN PRN Hypoglycemia Protocol Insulin Aspart 3 - 6 units 07/10/24 08:00 07/13/24 08:38 Insulin Aspart (*Bkc) 100 Units/Ml SUB-Q Not Given TIDWM [facility] Protocol Insulin Aspart 1 - 3 units 07/09/24 22:19 07/12/24 20:29 Insulin Aspart (*Bkc) 100 Units/Ml SUB-Q Not Given HS [facility] Protocol Insulin Aspart 8 units 07/10/24 17:00 07/13/24 09:11 Insulin Aspart (*Bkc) 100 Units/Ml SUB-Q 8 units TIDWM [facility] Administration Insulin Glargine 30 units 07/10/24 21:00 07/12/24 20:29 Insulin Glargine (*Bkc) 100 Units/Ml SUB-Q 30 units HS [facility] Administration Losartan Potassium 100 mg 07/10/24 21:00 07/12/24 20:30 Losartan Potassium 100 Mg Tablet PO 100 mg HS [facility] Administration Metoprolol Succinate 50 mg 07/09/24 21:45 07/13/24 08:25 Metoprolol Succinate Ext Rel 50 Mg Tabcr PO 50 mg Q12HR [facility] Administration Nifedipine 60 mg 07/10/24 09:00 07/13/24 08:25 Nifedipine 30 Mg Tab.Er.24 PO 60 mg DAILY [facility] Administration Ondansetron HCl 4 mg 07/09/24 18:18 Ondansetron Inj 4 Mg/2 Ml Vial IV PUSH Q4H PRN Nausea Pantoprazole Sodium 40 mg 07/09/24 21:00 07/13/24 08:25 Pantoprazole 40 Mg Tablet PO 40 mg Q12HR [facility] Administration Rosuvastatin Calcium 20 mg 07/10/24 09:00 07/13/24 08:24 Rosuvastatin 20 Mg Tablet PO 20 mg DAILY [facility] Administration Senna 8.6 mg 07/09/24 21:43 Sennosides 8.6 Mg Tablet PO PRN PRN Constipation Sucralfate 1,000 mg 07/10/24 06:30 07/13/24 05:27 Sucralfate Susp 100 Mg/Ml 10 Ml Udc PO 1,000 mg ACHS [facility] Administration Trazodone HCl 50 mg 07/10/24 21:00 07/12/24 20:30 Trazodone Hcl 50 Mg Tablet PO 50 mg HS [facility] Administration Radiology Results: ITS Impressions Head CT 07/09/24 15:36 IMPRESSION: 1. Normal brain. Chest X-Ray 07/09/24 15:40 IMPRESSION: No acute cardiopulmonary pathology. Abdomen/Pelvis CT 07/11/24 07:45 IMPRESSION: 1. Small pleural effusions. 2. Small pericardial effusion. 3. Stranding in the abdomen, consistent with inflammation versus edema. Labs Labs: Laboratory Results - last 24 hr 07/12/24 07/12/24 07/12/24 12:14 17:02 19:47 POC Capillary Glucose 137 H 161 H 181 H 07/13/24 08:10 POC Capillary Glucose 163 H Quality VTE Prophylaxis VTE prophylaxis: mechanical ordered Hospitalist MIPS Advance Care Plan I have confirmed that the patient's Advanced Care Plan is present, code status is documented, or surrogate decision maker is listed in patient medical record.: Yes Medication Reconciliation I have utilized all available resources to obtain, update and review the patients current medications (includes all prescriptions, OTC, herbals, cannabis, and nutritional supplements).: Yes
[2024-07-13 09:36] LABS: Basophils Absolute Auto 0.1 K/mm3 (0.0-0.1); Basophils Percent Auto 1.5 % (0.2-1.2); Eosinophils Absolute Auto 0.2 K/mm3 (0-0.3); Eosinophils Percent Auto 3.3 % (0-4.4); Hematocrit 33.6 % (37.0-47.0); Hemoglobin 10.6 g/dL (12.0-15.0); Immature Granulocyte Absolute 0.05 K/mm3 (0.00-0.031); Immature Granulocyte Percent A 0.8 % (0-0.5); Lymphocytes Absolute Auto 1.83 K/mm3 (0.9-3.2); Lymphocytes Percent Auto 27.6 % (18.3-44.2); Mean Corpuscular HGB Conc 31.5 g/dl (32-36); Mean Corpuscular Hemoglobin 29.9 pg (26-34); Mean Corpuscular Volume 94.6 fl (80-100); Mean Platelet Volume 9.3 fl (7.4-10.4); Monocytes Absolute Auto 0.5 K/mm3 (0.1-0.6); Monocytes Percent Auto 6.8 % (2.6-8.5); Platelet Count Result 367 k/mm3 (150-375); Red Blood Count 3.55 M/mm3 (4.2-5.4); Red Cell Distribution Width 15.2 % (11.5-14.5); White Blood Count 6.6 K/mm3 (4.5-10.0)
[2024-07-13 09:54] LABS: Anion Gap 8 mmol/L (4-12); Blood Urea Nitrogen 20 mg/dL (7-17); Calcium 9.3 mg/dL (8.4-10.2); Carbon Dioxide 27 mmol/L (22-30); Chloride 99 mmol/L (98-107); Estimated CRCL calculation 41 ml/min; Estimated Glomerular Filt Rate 55; Glucose 210 mg/dL (65-110); Potassium 4.9 mmol/L (3.4-5.0); Sodium 134 mmol/L (137-145)
--- NOTE | 2024-07-13 11:34 | PCOTNOTE ---
The patient treatment was not able to be completed. Not appropriate at this time. Patient requiring colostomy care per RN. Will plan to continue treatment per plan of care.
[2024-07-13 11:55] LABS: Glucose Point of Care 232 mg/dl (65-105)
[2024-07-13] MEDS: INSULIN ASPART (*BKC) 100 UNITS/ML SUB-Q (12:02)
[2024-07-13 16:56] LABS: Glucose Point of Care 132 mg/dl (65-105)
[2024-07-13] MEDS: traZODone HCL 50 MG TABLET PO (20:06)
[2024-07-13] MEDS: LOSARTAN POTASSIUM 100 MG TABLET PO (20:06)
[2024-07-13] MEDS: INSULIN GLARGINE (*BKC) 100 UNITS/ML 30 UNITS SUB-Q (20:07)
[2024-07-13 20:19] LABS: Glucose Point of Care 138 mg/dl (65-105)
[2024-07-14] VITALS (13 sets, daily range): BP systolic 84–153; BP diastolic 51–77; PULSE 78–94; RESP 16–19; TEMP 36.7–36.8; O2SAT 99–100
[2024-07-14] MEDS: SUCRALFATE SUSP 100 MG/ML 10 ML UDC 1000 MG PO ×4 (05:24→20:18)
[2024-07-14 05:31] LABS: Basophils Absolute Auto 0.1 K/mm3 (0.0-0.1); Basophils Percent Auto 0.9 % (0.2-1.2); Eosinophils Absolute Auto 0.2 K/mm3 (0-0.3); Eosinophils Percent Auto 3.8 % (0-4.4); Hematocrit 33.1 % (37.0-47.0); Hemoglobin 10.5 g/dL (12.0-15.0); Immature Granulocyte Absolute 0.03 K/mm3 (0.00-0.031); Immature Granulocyte Percent A 0.5 % (0-0.5); Lymphocytes Absolute Auto 1.72 K/mm3 (0.9-3.2); Lymphocytes Percent Auto 27.1 % (18.3-44.2); Mean Corpuscular HGB Conc 31.7 g/dl (32-36); Mean Corpuscular Hemoglobin 29.5 pg (26-34); Mean Platelet Volume 9.3 fl (7.4-10.4); Monocytes Absolute Auto 0.5 K/mm3 (0.1-0.6); Monocytes Percent Auto 8.5 % (2.6-8.5); Neutrophils Absolute Auto 3.8 K/mm3 (1.3-6.7); Neutrophils Percent Auto 59.2 % (45.5-73.1); Platelet Count Result 328 k/mm3 (150-375); Red Blood Count 3.56 M/mm3 (4.2-5.4); Red Cell Distribution Width 15.1 % (11.5-14.5); White Blood Count 6.3 K/mm3 (4.5-10.0)
[2024-07-14 05:44] LABS: Anion Gap 7 mmol/L (4-12); Blood Urea Nitrogen 20 mg/dL (7-17); Calcium 9.1 mg/dL (8.4-10.2); Carbon Dioxide 27 mmol/L (22-30); Chloride 99 mmol/L (98-107); Estimated CRCL calculation 41 ml/min; Estimated Glomerular Filt Rate 55; Glucose 154 mg/dL (65-110); Potassium 4.6 mmol/L (3.4-5.0); Sodium 133 mmol/L (137-145)
[2024-07-14 08:33] LABS: Glucose Point of Care 163 mg/dl (65-105)
--- NOTE | 2024-07-14 09:22 | PM.IMPN ---
Progress Note: A&P Assessment and Plan (1) Orthostatic hypotension: Code(s): I95.1 - Orthostatic hypotension Status: Acute Assessment and Plan: Patient with positive orthostatics this AM 139/51 to 84/61. 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 She had bright red blood from the ileostomy on 07/11. Multiple interventions and surgery followin. Interventions include silver nitrate, Surgicel and pressure. Holding Plavix Bleeding 07/11 early AM, stopped with topical SurgiSeal and silver nitrate 07/10 Plavix held and ASA continued (due to recent CABG) Hgb stable, 9-10 Ostomy nurse consultation 07/12 regarding leakage issues, appreciate assistance Continue to follow CBC Patient reports pills are whole in ostomy. Can't change most of them to liquid, try crushing and putting in applesauce if she can tolerate them, likely due to decreased transit time (3) Dehydration: Code(s): E86.0 - Dehydration Status: Acute Assessment and Plan: See above 07/10 hold furosemide (4) Insulin dependent type 2 diabetes mellitus: Code(s): E11.9 - Type 2 diabetes mellitus without complications; Z79.4 - alf (current) use of insulin Status: Acute Assessment and Plan: Home meds: 70 units of 70/30 twice daily and at the long-term 50 units of 70/30 twice daily Switched to basal/bolus: Lovolog 8units TID, Lantus 30 hs Discussed the benefits of continuous glucose monitoring, she will discuss with her outpatient physician Blood sugars relatively controlled, 130-160, occasional blood sugar over 200 and no hypoglycemia (5) Coronary artery disease: Onset Date: 11/04/17 Code(s): I25.10 - Atherosclerotic heart disease of [place] coronary artery without angina pectoris Status: Acute Assessment and Plan: Status post CABG June 15. Plavix held 07/10 due to bleeding --continue aspirin --continue to hold Plavix per surgery recs for bleeding ostomy No surgical plans, no signs of bleeding (6) Essential hypertension: Code(s): I10 - Essential (primary) hypertension Status: Acute Assessment and Plan: Patient currently hypotensive likely due to dehydration Home meds: furosemide 40 daily, losartan 100, metoprolol succinate 50 b.i.d., nifedipine 60 daily blood pressures reviewed and adequately controlled, 122-162/44-56 in the last 3 days --continue to hold furosemide --continue losartan, metoprolol, nifedipine at home doses --restart furosemide as able (7) Protein-calorie malnutrition, moderate: Code(s): E44.0 - Moderate protein-calorie malnutrition Status: Acute Assessment and Plan: Albumin 2.9 07/10. Encouraged p.o. intake Time Spent With Patient Time: Greater than 55 minutes Subjective Date/time seen: 07/14/24 09:22 Interval history: No bleeding, and feeling ok. H&H stable. She reported pills in ostomy bag were still whole. Patient unwilling to stand with OT due to fear of falling, with PT the patent had to take several breaks while doing standing exercises patient not appropriate for Acute Rehab at this time. Per PT patient did much better yesterday, likely unable to do therapy today due to positive orthostatics. Patient with positive orthostatics this AM 139/51 to 84/61. Given 1 L bolus with improvement and orthostatics. Patient's ostomy doubling fluid with very little fecal matter and in it, Imodium ordered, goal for ostomy to have 600-1500 mL a day. Review of Systems Review of Systems: 12 systems were reviewed and are negative except for as per HPI. All systems reviewed & are unremarkable except as noted in HPI and below Exam Narrative: HEENT: PERRL, sclerae nonicteric, pharyngeal mucosa pink and intact NECK: No JVD. CHEST: Clear to auscultation. Normal effort. HEART: NL S1/S2, regular, no murmur. ABDOMEN: BS+, soft, nontender, no mass, no bruits, ostomy x2 intact and functioning. Colostomy with water, ileostomy with mucous, No bleeding, somas pink EXTREMITIES: No cyanosis, edema, or clubbing. NEUROLOGIC: CN intact and symmetric to inspection. MUSCULOSKELETAL: Tone and strength symmetric. PSYCH: Alert. Oriented to person, place, and time. Objective Data Vital Signs Vital Signs: Vital Signs - 24 hr 07/13/24 14:00 07/13/24 20:05 07/13/24 20:06 Temperature 97.0 F L Pulse Rate 90 82 82 Respiratory Rate 18 Blood Pressure 121/55 L Pulse Oximetry 100 07/13/24 20:00 07/13/24 21:24 07/14/24 06:00 Temperature 98.2 F 98.2 F 98.2 F Pulse Rate 79 82 85 Respiratory Rate 20 20 18 Blood Pressure 142/56 H 145/49 H 125/77 Pulse Oximetry 100 100 100 Intake/Output Intake/Output: Intake & Output 07/11/24 07/12/24 07/13/24 07/14/24 23:59 23:59 23:59 23:59 Intake Total 4899 557 6819 500 Output Total 1975 1300 1925 400 Balance -75 340 -505 100 Meds/Results Medications: Active Medications Generic Name Dose Route Start Last Admin Trade Name Freq PRN Reason Stop Dose Admin Acetaminophen 650 mg 07/09/24 18:18 Acetaminophen 325 Mg Tablet PO Q4H PRN Mild Pain (1-3) or Fever Amiodarone HCl 200 mg 07/09/24 21:45 07/13/24 20:05 Amiodarone Hcl 200 Mg Tablet PO 200 mg Q12HR [facility] Administration Aspirin 81 mg 07/10/24 09:00 07/13/24 08:25 Aspirin 81 Mg Enteric Tablet PO 08/09/24 08:59 81 mg DAILY [facility] Administration Bisacodyl 10 mg 07/09/24 21:43 Bisacodyl 10 Mg Suppository RECTAL DAILY PRN Constipation Clopidogrel Bisulfate 75 mg 07/10/24 09:00 07/10/24 08:43 Clopidogrel Bisulfate 75 Mg Tablet PO 75 mg DAILY [facility] Administration Dextrose 12.5 gm 07/09/24 21:15 Dextrose 50% 25 Gm/50 Ml Syringe IV PUSH PRN PRN Hypoglycemia Protocol Furosemide 40 mg 07/10/24 09:00 07/10/24 08:44 Furosemide 40 Mg Tablet PO 40 mg DAILY [facility] Administration Glucagon 1 mg 07/09/24 21:15 Glucagon For Inj 1 Mg Vial IM PRN PRN Hypoglycemia Protocol Glucose 15 gm 07/09/24 21:15 Glucose Oral Gel 15 Gm Of Glucse In 37.5 Gm Tube PO PRN PRN Hypoglycemia Protocol Dextrose 1,000 mls @ 100 mls/hr 07/09/24 21:15 Dextrose 5% 1,000 Ml IVPB PRN PRN Hypoglycemia Protocol Insulin Aspart 3 - 6 units 07/10/24 08:00 07/14/24 08:44 Insulin Aspart (*Bkc) 100 Units/Ml SUB-Q Not Given TIDWM [facility] Protocol Insulin Aspart 1 - 3 units 07/09/24 22:19 07/13/24 20:06 Insulin Aspart (*Bkc) 100 Units/Ml SUB-Q Not Given HS [facility] Protocol Insulin Aspart 8 units 07/10/24 17:00 07/13/24 17:08 Insulin Aspart (*Bkc) 100 Units/Ml SUB-Q 8 units TIDWM [place] Administration Insulin Glargine 30 units 07/10/24 21:00 07/13/24 20:07 Insulin Glargine (*Bkc) 100 Units/Ml SUB-Q 30 units HS [facility] Administration Losartan Potassium 100 mg 07/10/24 21:00 07/13/24 20:06 Losartan Potassium 100 Mg Tablet PO 100 mg HS [facility] Administration Metoprolol Succinate 50 mg 07/09/24 21:45 07/13/24 20:06 Metoprolol Succinate Ext Rel 50 Mg Tabcr PO 50 mg Q12HR [facility] Administration Nifedipine 60 mg 07/10/24 09:00 07/13/24 08:25 Nifedipine 30 Mg Tab.Er.24 PO 60 mg DAILY [place] Administration Ondansetron HCl 4 mg 07/09/24 18:18 Ondansetron Inj 4 Mg/2 Ml Vial IV PUSH Q4H PRN Nausea Pantoprazole Sodium 40 mg 07/09/24 21:00 07/13/24 20:06 Pantoprazole 40 Mg Tablet PO 40 mg Q12HR [facility] Administration Rosuvastatin Calcium 20 mg 07/10/24 09:00 07/13/24 08:24 Rosuvastatin 20 Mg Tablet PO 20 mg DAILY [facility] Administration Senna 8.6 mg 07/09/24 21:43 Sennosides 8.6 Mg Tablet PO PRN PRN Constipation Sucralfate 1,000 mg 07/10/24 06:30 07/14/24 05:24 Sucralfate Susp 100 Mg/Ml 10 Ml Udc PO 1,000 mg ACHS [facility] Administration Trazodone HCl 50 mg 07/10/24 21:00 07/13/24 20:06 Trazodone Hcl 50 Mg Tablet PO 50 mg HS [facility] Administration Radiology Results: ITS Impressions Head CT 07/09/24 15:36 IMPRESSION: 1. Normal brain. Chest X-Ray 07/09/24 15:40 IMPRESSION: No acute cardiopulmonary pathology. Abdomen/Pelvis CT 07/11/24 07:45 IMPRESSION: 1. Small pleural effusions. 2. Small pericardial effusion. 3. Stranding in the abdomen, consistent with inflammation versus edema. Labs Labs: Laboratory Results - last 24 hr 07/13/24 07/13/24 07/13/24 09:31 11:41 16:45 WBC 6.6 RBC 3.55 L Hgb 10.6 L Hct 33.6 L MCV 94.6 MCH 29.9 MCHC 31.5 L RDW 15.2 H Plt Count 367 MPV 9.3 Immature Gran % (Auto) 0.8 H Neut % (Auto) 60.0 Lymph % (Auto) 27.6 [place] % (Auto) 6.8 Eos % (Auto) 3.3 Baso % (Auto) 1.5 H Lymph # (Auto) 1.83 [place] # (Auto) 0.5 Eos # (Auto) 0.2 Baso # (Auto) 0.1 Abs Immat Gran (auto) 0.05 H Absolute Neuts (auto) 4.0 Absolute Nucleated RBC 0.000 Nucleated RBC % 0.0 Sodium 134 L Potassium 4.9 Chloride 99 Carbon Dioxide 27 Anion Gap 8 BUN 20 H Creatinine 1.00 Estim Creat Clear Calc 41 Estimated GFR 55 L Glucose 210 H POC Capillary Glucose 232 H 132 H Calcium 9.3 07/13/24 07/14/24 07/14/24 19:43 05:24 08:23 WBC 6.3 RBC 3.56 L Hgb 10.5 L Hct 33.1 L MCV 93.0 MCH 29.5 MCHC 31.7 L RDW 15.1 H Plt Count 328 MPV 9.3 Immature Gran % (Auto) 0.5 Neut % (Auto) 59.2 Lymph % (Auto) 27.1 [place] % (Auto) 8.5 Eos % (Auto) 3.8 Baso % (Auto) 0.9 Lymph # (Auto) 1.72 [place] # (Auto) 0.5 Eos # (Auto) 0.2 Baso # (Auto) 0.1 Abs Immat Gran (auto) 0.03 Absolute Neuts (auto) 3.8 Absolute Nucleated RBC 0.000 Nucleated RBC % 0.0 Sodium 133 L Potassium 4.6 Chloride 99 Carbon Dioxide 27 Anion Gap 7 BUN 20 H Creatinine 1.00 Estim Creat Clear Calc 41 Estimated GFR 55 L Glucose 154 H POC Capillary Glucose 138 H 163 H Calcium 9.1 Quality VTE Prophylaxis VTE prophylaxis: mechanical ordered and pharmacologic ordered Hospitalist MIPS Advance Care Plan I have confirmed that the patient's Advanced Care Plan is present, code status is documented, or surrogate decision maker is listed in patient medical record.: Yes Medication Reconciliation I have utilized all available resources to obtain, update and review the patients current medications (includes all prescriptions, OTC, herbals, cannabis, and nutritional supplements).: Yes
[2024-07-14] MEDS: SODIUM CHLORIDE 0.9% IV 1,000 ML 999 ML IV CONT (10:12)
[2024-07-14] MEDS: ASPIRIN 81 MG ENTERIC TABLET PO (10:14)
[2024-07-14] MEDS: ROSUVASTATIN 20 MG TABLET PO (10:14)
[2024-07-14] MEDS: LOPERAMIDE HCL 2 MG CAPSULE 4 MG PO (10:17)
[2024-07-14 12:07] LABS: Glucose Point of Care 227 mg/dl (65-105)
[2024-07-14] MEDS: PANTOPRAZOLE 40 MG TABLET PO ×2 (13:16→20:18)
[2024-07-14] MEDS: METOPROLOL SUCCINATE EXT REL 50 MG TABCR PO ×2 (13:16→20:18)
[2024-07-14] MEDS: AMIODARONE HCL 200 MG TABLET PO ×2 (13:17→20:18)
[2024-07-14] MEDS: INSULIN ASPART (*BKC) 100 UNITS/ML SUB-Q (13:18)
[2024-07-14] MEDS: INSULIN ASPART (*BKC) 100 UNITS/ML 8 UNITS SUB-Q ×2 (13:18→18:16)
[2024-07-14 16:39] LABS: Glucose Point of Care 173 mg/dl (65-105)
[2024-07-14] MEDS: LOPERAMIDE HCL 2 MG CAPSULE PO ×2 (18:14→20:18)
[2024-07-14] MEDS: traZODone HCL 50 MG TABLET PO (20:18)
[2024-07-14] MEDS: INSULIN GLARGINE (*BKC) 100 UNITS/ML 30 UNITS SUB-Q (20:23)
[2024-07-14 21:09] LABS: Glucose Point of Care 185 mg/dl (65-105)
[2024-07-15] VITALS (14 sets, daily range): BP systolic 126–162; BP diastolic 41–56; PULSE 69–97; RESP 16–18; TEMP 35.9–36.7; O2SAT 100
[2024-07-15] MEDS: SUCRALFATE SUSP 100 MG/ML 10 ML UDC 1000 MG PO ×4 (05:41→20:32)
[2024-07-15] MEDS: LOPERAMIDE HCL 2 MG CAPSULE PO ×3 (05:42→17:35)
[2024-07-15 08:00] LABS: Glucose Point of Care 140 mg/dl (65-105)
--- NOTE | 2024-07-15 08:35 | PM.IMPN ---
Progress Note: A&P Assessment and Plan (1) Orthostatic hypotension: Code(s): I95.1 - Orthostatic hypotension Status: Acute Assessment and Plan: Resolved Patient with positive orthostatics this AM 139/51 to 84/61. Likely due to acute dehydration from increased output in ostomy Imodium ordered, goal for ostomy to have 600-1500 mL with paste like output, Imodium ordered to prevent dehydration Started banatrol with meals. 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 She had bright red blood from the ileostomy on 07/11. Multiple interventions and surgery followin. Interventions include silver nitrate, Surgicel and pressure. Holding Plavix Bleeding 07/11 early AM, stopped with topical SurgiSeal and silver nitrate 07/10 Plavix held and ASA continued (due to recent CABG) Hgb stable, 9-10 Ostomy nurse consultation 07/12 regarding leakage issues, appreciate assistance Continue to follow CBC Patient reports pills are whole in ostomy. Can't change most of them to liquid, try crushing and putting in applesauce if she can tolerate them, likely due to decreased transit time Restart Plavix on 07/15 (3) Dehydration: Code(s): E86.0 - Dehydration Status: Acute Assessment and Plan: See above 07/10 hold furosemide (4) Insulin dependent type 2 diabetes mellitus: Code(s): E11.9 - Type 2 diabetes mellitus without complications; Z79.4 - prison (current) use of insulin Status: Acute Assessment and Plan: Home meds: 70 units of 70/30 twice daily and at the [place] [facility] units of 70/30 twice daily Switched to basal/bolus: Lovolog 8units TID, Lantus 30 hs Discussed the benefits of continuous glucose monitoring, she will discuss with her outpatient physician Blood sugars relatively controlled, 130-160, occasional blood sugar over 200 and no hypoglycemia (5) Coronary artery disease: Onset Date: 11/04/17 Code(s): I25.10 - Atherosclerotic heart disease of [place] coronary artery without angina pectoris Status: Acute Assessment and Plan: Status post CABG June 15. Plavix held 07/10 due to bleeding --continue aspirin --continue to hold Plavix per surgery recs for bleeding ostomy No surgical plans, no signs of bleeding (6) Essential hypertension: Code(s): I10 - Essential (primary) hypertension Status: Acute Assessment and Plan: Patient currently hypotensive likely due to dehydration Home meds: furosemide 40 daily, losartan 100, metoprolol succinate 50 b.i.d., nifedipine 60 daily blood pressures reviewed and adequately controlled, 122-162/44-56 in the last 3 days --continue to hold furosemide --continue losartan, metoprolol, nifedipine at home doses --restart furosemide as able (7) Protein-calorie malnutrition, moderate: Code(s): E44.0 - Moderate protein-calorie malnutrition Status: Acute Assessment and Plan: Albumin 2.9 07/10. Encouraged p.o. intake (8) Hyperkalemia: Code(s): E87.5 - Hyperkalemia Status: Acute Assessment and Plan: Repeat potassium level, patient may need treatment for hyperkalemia Time Spent With Patient Time with patient: Greater than 35 minutes Subjective Date/time seen: 07/15/24 08:35 Interval history: No bleeding from ostomy, and feeling ok. H&H stable. She reported pills in ostomy bag were still whole. Patient orthostatic yesterday with improvement after a 1 L bolus we likely due to acute dehydration from copious watery from ostomy. Patient placed on Imodium and fiber yesterday, with some improvement in output. Started banatrol with meals. Review of Systems Review of Systems: 12 systems were reviewed and are negative except for as per HPI. All systems reviewed & are unremarkable except as noted in HPI and below Exam Narrative: HEENT: PERRL, sclerae nonicteric, pharyngeal mucosa pink and intact NECK: No JVD. CHEST: Clear to auscultation. Normal effort. HEART: NL S1/S2, regular, no murmur. ABDOMEN: BS+, soft, nontender, no mass, no bruits, ostomy x2 intact and functioning. Colostomy with watery output, ileostomy with mucous, No bleeding, somas pink EXTREMITIES: No cyanosis, edema, or clubbing. NEUROLOGIC: CN intact and symmetric to inspection. MUSCULOSKELETAL: Tone and strength symmetric. PSYCH: Alert. Oriented to person, place, and time. Objective Data Vital Signs Vital Signs: Vital Signs - 24 hr 07/14/24 09:34 07/14/24 09:35 07/14/24 13:16 Temperature 98.2 F 98.2 F Pulse Rate 88 93 84 Respiratory Rate 16 18 Blood Pressure 111/64 84/61 L Pulse Oximetry 100 100 Oxygen Delivery 07/14/24 13:17 07/14/24 14:00 07/14/24 16:00 Temperature 98.2 F Pulse Rate 84 83 78 Respiratory Rate 19 Blood Pressure 120/68 Pulse Oximetry 99 Oxygen Delivery 07/14/24 19:55 07/14/24 19:58 07/14/24 20:02 Temperature 98.2 F Pulse Rate 80 89 94 Respiratory Rate 18 Blood Pressure 153/66 H 137/67 129/52 L Pulse Oximetry 100 100 Oxygen Delivery 07/14/24 20:18 07/14/24 20:18 07/14/24 20:00 Temperature Pulse Rate 94 94 Respiratory Rate Blood Pressure Pulse Oximetry Oxygen Delivery Room Air 07/14/24 20:00 07/15/24 00:00 07/15/24 04:00 Temperature Pulse Rate 94 69 75 Respiratory Rate Blood Pressure Pulse Oximetry Oxygen Delivery 07/15/24 05:25 07/15/24 08:00 Temperature 98.1 F Pulse Rate 80 75 Respiratory Rate 16 Blood Pressure 133/48 L Pulse Oximetry 100 Oxygen Delivery Intake/Output Intake/Output: Intake & Output 07/12/24 07/13/24 07/14/24 07/15/24 23:59 23:59 23:59 23:59 Intake Total 960 1420 2558 250 Output Total 1300 1925 1225 450 Balance -340 -505 1333 -200 Meds/Results Medications: Active Medications Generic Name Dose Route Start Last Admin Trade Name Freq PRN Reason Stop Dose Admin Acetaminophen 650 mg 07/09/24 18:18 Acetaminophen 325 Mg Tablet PO Q4H PRN Mild Pain (1-3) or Fever Amiodarone HCl 200 mg 07/09/24 21:45 07/14/24 20:18 Amiodarone Hcl 200 Mg Tablet PO 200 mg Q12HR [facility] Administration Aspirin 81 mg 07/10/24 09:00 07/14/24 10:14 Aspirin 81 Mg Enteric Tablet PO 08/09/24 08:59 81 mg DAILY [facility] Administration Bisacodyl 10 mg 07/09/24 21:43 Bisacodyl 10 Mg Suppository RECTAL DAILY PRN Constipation Calcium Polycarbophil 625 mg 07/15/24 09:00 Calcium Polycarbophil 625 Mg Tablet PO QAM [facility] Clopidogrel Bisulfate 75 mg 07/10/24 09:00 07/10/24 08:43 Clopidogrel Bisulfate 75 Mg Tablet PO 75 mg DAILY [facility] Administration Dextrose 12.5 gm 07/09/24 21:15 Dextrose 50% 25 Gm/50 Ml Syringe IV PUSH PRN PRN Hypoglycemia Protocol Enoxaparin Sodium 40 mg 07/15/24 09:00 Enoxaparin 40 Mg/0.4 Ml Syringe SUB-Q DAILY [facility] Furosemide 40 mg 07/10/24 09:00 07/10/24 08:44 Furosemide 40 Mg Tablet PO 40 mg DAILY [facility] Administration Glucagon 1 mg 07/09/24 21:15 Glucagon For Inj 1 Mg Vial IM PRN PRN Hypoglycemia Protocol Glucose 15 gm 07/09/24 21:15 Glucose Oral Gel 15 Gm Of Glucse In 37.5 Gm Tube PO PRN PRN Hypoglycemia Protocol Dextrose 1,000 mls @ 100 mls/hr 07/09/24 21:15 Dextrose 5% 1,000 Ml IVPB PRN PRN Hypoglycemia Protocol Insulin Aspart 3 - 6 units 07/10/24 08:00 07/15/24 08:07 Insulin Aspart (*Bkc) 100 Units/Ml SUB-Q Not Given TIDWM [facility] Protocol Insulin Aspart 1 - 3 units 07/09/24 22:19 07/14/24 20:23 Insulin Aspart (*Bkc) 100 Units/Ml SUB-Q Not Given HS [facility] Protocol Insulin Aspart 8 units 07/10/24 17:00 07/14/24 18:16 Insulin Aspart (*Bkc) 100 Units/Ml SUB-Q 8 units TIDWM [facility] Administration Insulin Glargine 30 units 07/10/24 21:00 07/14/24 20:23 Insulin Glargine (*Bkc) 100 Units/Ml SUB-Q 30 units HS [facility] Administration Loperamide HCl 2 mg 07/14/24 09:46 07/15/24 05:42 Loperamide Hcl 2 Mg Capsule PO 2 mg PRN PRN Administration Diarrhea Losartan Potassium 100 mg 07/10/24 21:00 07/13/24 20:06 Losartan Potassium 100 Mg Tablet PO 100 mg HS [facility] Administration Metoprolol Succinate 50 mg 07/09/24 21:45 10/16/24 20:18 Metoprolol Succinate Ext Rel 50 Mg Tabcr PO 50 mg Q12HR [facility] Administration Nifedipine 60 mg 07/10/24 09:00 07/14/24 10:07 Nifedipine 30 Mg Tab.Er.24 PO Not Given DAILY [facility] Ondansetron HCl 4 mg 07/09/24 18:18 Ondansetron Inj 4 Mg/2 Ml Vial IV PUSH Q4H PRN Nausea Pantoprazole Sodium 40 mg 07/09/24 21:00 07/14/24 20:18 Pantoprazole 40 Mg Tablet PO 40 mg Q12HR [facility] Administration Rosuvastatin Calcium 20 mg 07/10/24 09:00 07/14/24 10:14 Rosuvastatin 20 Mg Tablet PO 20 mg DAILY [facility] Administration Senna 8.6 mg 07/09/24 21:43 Sennosides 8.6 Mg Tablet PO PRN PRN Constipation Sucralfate 1,000 mg 07/10/24 06:30 07/15/24 05:41 Sucralfate Susp 100 Mg/Ml 10 Ml Udc PO 1,000 mg ACHS [facility] Administration Trazodone HCl 50 mg 07/10/24 21:00 07/14/24 20:18 Trazodone Hcl 50 Mg Tablet PO 50 mg HS [facility] Administration Radiology Results: ITS Impressions Head CT 07/09/24 15:36 IMPRESSION: 1. Normal brain. Chest X-Ray 07/09/24 15:40 IMPRESSION: No acute cardiopulmonary pathology. Abdomen/Pelvis CT 07/11/24 07:45 IMPRESSION: 1. Small pleural effusions. 2. Small pericardial effusion. 3. Stranding in the abdomen, consistent with inflammation versus edema. Labs Labs: Laboratory Results - last 24 hr 07/14/24 07/14/24 07/14/24 11:56 16:32 20:20 POC Capillary Glucose 227 H 173 H 185 H 07/15/24 07:55 POC Capillary Glucose 140 H Quality VTE Prophylaxis VTE prophylaxis: mechanical ordered and pharmacologic ordered Hospitalist MIPS Advance Care Plan I have confirmed that the patient's Advanced Care Plan is present, code status is documented, or surrogate decision maker is listed in patient medical record.: Yes Medication Reconciliation I have utilized all available resources to obtain, update and review the patients current medications (includes all prescriptions, OTC, herbals, cannabis, and nutritional supplements).: Yes
[2024-07-15] MEDS: ASPIRIN 81 MG ENTERIC TABLET PO (08:56)
[2024-07-15] MEDS: PANTOPRAZOLE 40 MG TABLET PO ×2 (08:56→20:32)
[2024-07-15] MEDS: ROSUVASTATIN 20 MG TABLET PO (08:56)
[2024-07-15] MEDS: METOPROLOL SUCCINATE EXT REL 50 MG TABCR PO ×2 (08:57→20:32)
[2024-07-15] MEDS: INSULIN ASPART (*BKC) 100 UNITS/ML 8 UNITS SUB-Q ×3 (08:57→17:34)
[2024-07-15] MEDS: AMIODARONE HCL 200 MG TABLET PO ×2 (08:57→20:32)
[2024-07-15] MEDS: ENOXAPARIN 40 MG/0.4 ML SYRINGE SUB-Q (08:58)
[2024-07-15 09:30] LABS: Hematocrit 36.4 % (37.0-47.0); Hemoglobin 11.2 g/dL (12.0-15.0); Mean Corpuscular HGB Conc 30.8 g/dl (32-36); Mean Corpuscular Volume 94.3 fl (80-100); Mean Platelet Volume 9.3 fl (7.4-10.4); Platelet Count Result 423 k/mm3 (150-375); Red Blood Count 3.86 M/mm3 (4.2-5.4); Red Cell Distribution Width 15.3 % (11.5-14.5); White Blood Count 8.3 K/mm3 (4.5-10.0)
[2024-07-15 09:38] LABS: Anion Gap 6 mmol/L (4-12); Blood Urea Nitrogen 19 mg/dL (7-17); Calcium 9.6 mg/dL (8.4-10.2); Carbon Dioxide 27 mmol/L (22-30); Chloride 102 mmol/L (98-107); Estimated CRCL calculation 45 ml/min; Estimated Glomerular Filt Rate > 60; Glucose 165 mg/dL (65-110); Potassium 5.3 mmol/L (3.4-5.0); Sodium 135 mmol/L (137-145)
[2024-07-15 11:51] LABS: Glucose Point of Care 172 mg/dl (65-105)
[2024-07-15 14:33] LABS: Potassium 4.9 mmol/L (3.4-5.0)
[2024-07-15 17:03] LABS: Glucose Point of Care 154 mg/dl (65-105)
[2024-07-15] MEDS: INSULIN GLARGINE (*BKC) 100 UNITS/ML 30 UNITS SUB-Q (20:29)
[2024-07-15] MEDS: traZODone HCL 50 MG TABLET PO (20:32)
[2024-07-15 23:01] LABS: Glucose Point of Care 192 mg/dl (65-105)
[2024-07-16] VITALS (13 sets, daily range): BP systolic 78–167; BP diastolic 48–70; PULSE 75–89; RESP 16–20; TEMP 35.8–36.6; O2SAT 98–100
[2024-07-16] MEDS: SUCRALFATE SUSP 100 MG/ML 10 ML UDC 1000 MG PO ×4 (05:55→21:02)
[2024-07-16 06:01] LABS: Hematocrit 31.2 % (37.0-47.0); Hemoglobin 9.9 g/dL (12.0-15.0); Mean Corpuscular HGB Conc 31.7 g/dl (32-36); Mean Corpuscular Hemoglobin 29.2 pg (26-34); Mean Platelet Volume 9.3 fl (7.4-10.4); Platelet Count Result 341 k/mm3 (150-375); Red Blood Count 3.39 M/mm3 (4.2-5.4); White Blood Count 6.9 K/mm3 (4.5-10.0)
[2024-07-16 06:14] LABS: Alanine Aminotransferase 20 U/L (6-35); Albumin Level 3.3 g/dL (3.5-5.1); Alkaline Phosphatase 116 U/L (38-126); Anion Gap 6 mmol/L (4-12); Aspartate Amino Transferase 21 U/L (14-36); Bilirubin,Total 0.7 mg/dL (0.2-1.3); Blood Urea Nitrogen 22 mg/dL (7-17); Calcium 9.1 mg/dL (8.4-10.2); Carbon Dioxide 24 mmol/L (22-30); Chloride 102 mmol/L (98-107); Estimated CRCL calculation 45 ml/min; Estimated Glomerular Filt Rate > 60; Glucose 143 mg/dL (65-110); Potassium 4.8 mmol/L (3.4-5.0); Sodium 132 mmol/L (137-145)
[2024-07-16 08:03] LABS: Glucose Point of Care 164 mg/dl (65-105)
--- NOTE | 2024-07-16 08:12 | P.PNIM_ITS ---
Progress Note: A&P Assessment and Plan (1) Orthostatic hypotension: Code(s): I95.1 - Orthostatic hypotension Status: Acute Assessment and Plan: positive orthostatics this morning 150/56 prone and 78/51 standing, fluid bolus ordered and midodrine TID. Likely due to acute dehydration from increased output in ostomy Imodium ordered, goal for ostomy to have 600-1500 mL with paste like output, Imodium ordered to prevent dehydration Continue banatrol with meals. 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 She had bright red blood from the ileostomy on 07/11. Multiple interventions Bleeding 07/11 early AM, stopped with topical SurgiSeal and silver nitrate * 07/10 Plavix held and ASA continued (due to recent CABG) * Hgb stable, 9-10 * Ostomy nurse consultation 07/12 regarding leakage issues, appreciate assistance * Continue to follow CBC * Patient reports pills are whole in ostomy. 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 Status: Acute Assessment and Plan: Home meds: 70 units of 70/30 twice daily and at the intermediate 50 units of 70/30 twice daily * Switched to basal/bolus: Lovolog 8units TID, Lantus 30 hs * Discussed the benefits of continuous glucose monitoring, she will discuss with her outpatient physician * Blood sugars relatively controlled, 130-160, occasional blood sugar over 200 and no hypoglycemia (5) Coronary artery disease: Onset Date: 11/04/17 Code(s): I25.10 - Atherosclerotic heart disease of [place] coronary artery without angina pectoris Status: Acute Assessment and Plan: Status post CABG June 15. Plavix held 07/10 due to bleeding --continue aspirin --continue to hold Plavix per surgery recs for bleeding ostomy No surgical plans, no signs of bleeding (6) Essential hypertension: Code(s): I10 - Essential (primary) hypertension Status: Acute Assessment and Plan: Patient currently hypotensive likely due to dehydration Home meds: furosemide 40 daily, losartan 100, metoprolol succinate 50 b.i.d., nifedipine 60 daily blood pressures reviewed and adequately controlled, 122-162/44-56 in the last 3 days --continue to hold furosemide --continue losartan, metoprolol, nifedipine at home doses --restart furosemide as able (7) Protein-calorie malnutrition, moderate: Code(s): E44.0 - Moderate protein-calorie malnutrition Status: Acute Assessment and Plan: Albumin 2.9 07/10. Encouraged p.o. intake (8) Hyperkalemia: Code(s): E87.5 - Hyperkalemia Status: Acute Assessment and Plan: Repeat potassium level WNL (9) Hyponatremia: Code(s): E87.1 - Hypo-osmolality and hyponatremia Status: Acute Assessment and Plan: Patient taken off low-sodium diet placed on regular diabetic diet Repeat BMP tomorrow Time Spent With Patient Time with patient: Greater than 35 minutes Subjective Date/time seen: 07/16/24 08:12 Interval history: No bleeding from ostomy, and feeling ok. H&H stable. She reported pills in ostomy bag were still whole. Patient orthostatic yesterday with improvement after a 1 L bolus we likely due to acute dehydration from copious watery from ostomy. Patient placed on Imodium PRN and fiber, with some improvement in output. Started banatrol with meals yesterday. Patient with positive orthostatics this morning 150/56 prone and 78/51 standing, fluid bolus ordered and midodrine TID. Patient also is still putting out straight water, this paste like before patient can discharge, patient is not medically ready for discharge. Review of Systems Review of Systems: 12 systems were reviewed and are negativ e except for as per HPI. All systems reviewed & are unremarkable except as noted in HPI and below Exam Narrative: HEENT: PERRL, sclerae nonicteric, pharyngeal mucosa pink and intact NECK: No JVD. CHEST: Clear to auscultation. Normal effort. HEART: NL S1/S2, regular, no murmur. ABDOMEN: BS+, soft, nontender, no mass, no bruits, ostomy x2 intact and functioning. Colostomy with watery output, ileostomy with mucous, No bleeding, somas pink EXTREMITIES: No cyanosis, edema, or clubbing. NEUROLOGIC: CN intact and symmetric to inspection. MUSCULOSKELETAL: Tone and strength symmetric. PSYCH: Alert. Oriented to person, place, and time. Objective Data Vital Signs Vital Signs: Vital Signs - 24 hr 07/15/24 08:57 07/15/24 08:57 07/15/24 09:53 Temperature Pulse Rate 79 79 82 Respiratory Rate Blood Pressure 162/50 H Pulse Oximetry Oxygen Delivery 07/15/24 09:53 07/15/24 09:54 07/15/24 14:00 Temperature 96.7 F L Pulse Rate 88 95 91 Respiratory Rate 18 Blood Pressure 126/54 L 133/41 L 161/52 H Pulse Oximetry 100 Oxygen Delivery 07/15/24 12:00 07/15/24 16:00 07/15/24 19:43 Temperature 97 F L Pulse Rate 79 86 97 Respiratory Rate 18 Blood Pressure 146/46 H Pulse Oximetry 100 Oxygen Delivery 07/15/24 19:45 07/15/24 20:32 07/15/24 20:32 Temperature Pulse Rate 86 86 Respiratory Rate Blood Pressure 128/56 L Pulse Oximetry Oxygen Delivery 07/15/24 20:00 07/15/24 20:00 07/16/24 00:00 Temperature Pulse Rate 81 78 Respiratory Rate Blood Pressure Pulse Oximetry Oxygen Delivery Room Air 07/16/24 04:00 07/16/24 05:55 Temperature 98 F Pulse Rate 75 83 Respiratory Rate 16 Blood Pressure 117/48 L Pulse Oximetry 100 Oxygen Delivery Intake/Output Intake/Output: Intake & Output 07/13/24 07/14/24 07/15/24 07/16/24 23:59 23:59 23:59 23:59 Intake Total 1420 2558 1220 0 Output Total 1925 1225 1500 300 Balance -505 5353 -280 -300 Meds/Results Medications: Active Medications Generic Name Dose Route Start Last Admin Trade Name Freq PRN Reason Stop Dose Admin Acetaminophen 650 mg 07/09/24 18:18 Acetaminophen 325 Mg Tablet PO Q4H PRN Mild Pain (1-3) or Fever Amiodarone HCl 200 mg 07/09/24 21:45 07/15/24 20:32 Amiodarone Hcl 200 Mg Tablet PO 200 mg Q12HR [facility] Administration Aspirin 81 mg 07/10/24 09:00 07/15/24 08:56 Aspirin 81 Mg Enteric Tablet PO 08/09/24 08:59 81 mg DAILY [facility] Administration Calcium Polycarbophil 625 mg 07/15/24 09:00 07/15/24 09:03 Calcium Polycarbophil 625 Mg Tablet PO Not Given QAM [facility] Clopidogrel Bisulfate 75 mg 07/10/24 09:00 07/10/24 08:43 Clopidogrel Bisulfate 75 Mg Tablet PO 75 mg DAILY [facility] Administration Dextrose 12.5 gm 07/09/24 21:15 Dextrose 50% 25 Gm/50 Ml Syringe IV PUSH PRN PRN Hypoglycemia Protocol Enoxaparin Sodium 40 mg 07/15/24 09:00 07/15/24 08:58 Enoxaparin 40 Mg/0.4 Ml Syringe SUB-Q 40 mg DAILY [facility] Administration Furosemide 40 mg 07/10/24 09:00 07/10/24 08:44 Furosemide 40 Mg Tablet PO 40 mg DAILY [facility] Administration Glucagon 1 mg 07/09/24 21:15 Glucagon For Inj 1 Mg Vial IM PRN PRN Hypoglycemia Protocol Glucose 15 gm 07/09/24 21:15 Glucose Oral Gel 15 Gm Of Glucse In 37.5 Gm Tube PO PRN PRN Hypoglycemia Protocol Dextrose 1,000 mls @ 100 mls/hr 07/09/24 21:15 Dextrose 5% 1,000 Ml IVPB PRN PRN Hypoglycemia Protocol Insulin Aspart 3 - 6 units 07/10/24 08:00 07/15/24 17:35 Insulin Aspart (*Bkc) 100 Units/Ml SUB-Q Not Given TIDWM [facility] Protocol Insulin Aspart 1 - 3 units 07/09/24 22:19 07/15/24 20:32 Insulin Aspart (*Bkc) 100 Units/Ml SUB-Q Not Given HS [facility] Protocol Insulin Aspart 8 units 07/10/24 17:00 07/15/24 17:34 Insulin Aspart (*Bkc) 100 Units/Ml SUB-Q 8 units TIDWM [facility] Administration Insulin Glargine 30 units 07/10/24 21:00 07/15/24 20:29 Insulin Glargine (*Bkc) 100 Units/Ml SUB-Q 30 units HS [facility] Administration Loperamide HCl 2 mg 07/14/24 09:46 07/15/24 17:35 Loperamide Hcl 2 Mg Capsule PO 2 mg PRN PRN Administration Diarrhea Losartan Potassium 100 mg 07/10/24 21:00 07/13/24 20:06 Losartan Potassium 100 Mg Tablet PO 100 mg HS [facility] Administration Metoprolol Succinate 50 mg 07/09/24 21:45 07/15/24 20:32 Metoprolol Succinate Ext Rel 50 Mg Tabcr PO 50 mg Q12HR [facility] Administration Nifedipine 60 mg 07/10/24 09:00 07/14/24 10:07 Nifedipine 30 Mg Tab.Er.24 PO Not Given DAILY [facility] Ondansetron HCl 4 mg 07/09/24 18:18 Ondansetron Inj 4 Mg/2 Ml Vial IV PUSH Q4H PRN Nausea Pantoprazole Sodium 40 mg 07/09/24 21:00 07/15/24 20:32 Pantoprazole 40 Mg Tablet PO 40 mg Q12HR [facility] Administration Rosuvastatin Calcium 20 mg 07/10/24 09:00 07/15/24 08:56 Rosuvastatin 20 Mg Tablet PO 20 mg DAILY [facility] Administration Sucralfate 1,000 mg 07/10/24 06:30 07/16/24 05:55 Sucralfate Susp 100 Mg/Ml 10 Ml Udc PO 1,000 mg ACHS [facility] Administration Trazodone HCl 50 mg 07/10/24 21:00 07/15/24 20:32 Trazodone Hcl 50 Mg Tablet PO 50 mg HS [facility] Administration Radiology Results: ITS Impressions Head CT 07/09/24 15:36 IMPRESSION: 1. Normal brain. Chest X-Ray 07/09/24 15:40 IMPRESSION: No acute cardiopulmonary pathology. Abdomen/Pelvis CT 07/11/24 07:45 IMPRESSION: 1. Small pleural effusions. 2. Small pericardial effusion. 3. Stranding in the abdomen, consistent with inflammation versus edema. Labs Labs: Laboratory Results - last 24 hr 07/15/24 07/15/24 07/15/24 09:21 11:36 14:08 WBC 8.3 RBC 3.86 L Hgb 11.2 L Hct 36.4 L MCV 94.3 MCH 29.0 MCHC 30.8 L RDW 15.3 H Plt Count 423 H MPV 9.3 Sodium 135 L Potassium 5.3 H 4.9 Chloride 102 Carbon Dioxide 27 Anion Gap 6 BUN 19 H Creatinine 0.90 Estim Creat Clear Calc 45 Estimated GFR > 60 Glucose 165 H POC Capillary Glucose 172 H Calcium 9.6 Total Bilirubin AST ALT Alkaline Phosphatase Total Protein Albumin 07/15/24 07/15/24 07/16/24 16:57 19:54 05:33 WBC 6.9 RBC 3.39 L Hgb 9.9 L Hct 31.2 L MCV 92.0 MCH 29.2 MCHC 31.7 L RDW 15.0 H Plt Count 341 MPV 9.3 Sodium 132 L Potassium 4.8 Chloride 102 Carbon Dioxide 24 Anion Gap 6 BUN 22 H Creatinine 0.90 Estim Creat Clear Calc 45 Estimated GFR > 60 Glucose 143 H POC Capillary Glucose 154 H 192 H Calcium 9.1 Total Bilirubin 0.7 AST 21 ALT 20 Alkaline Phosphatase 116 Total Protein 7.0 Albumin 3.3 L 07/16/24 07:59 WBC RBC Hgb Hct MCV MCH MCHC RDW Plt Count MPV Sodium Potassium Chloride Carbon Dioxide Anion Gap BUN Creatinine Estim Creat Clear Calc Estimated GFR Glucose POC Capillary Glucose 164 H Calcium Total Bilirubin AST ALT Alkaline Phosphatase Total Protein Albumin Quality VTE Prophylaxis VTE prophylaxis: mechanical ordered and pharmacologic ordered Hospitalist MIPS Advance Care Plan I have confirmed that the patient's Advanced Care Plan is present, code status is documented, or surrogate decision maker is listed in patient medical record.: Yes Medication Reconciliation I have utilized all available resources to obtain, update and review the patients current medications (includes all prescriptions, OTC, herbals, cannabi s, and nutritional supplements).: Yes
[2024-07-16] MEDS: AMIODARONE HCL 200 MG TABLET PO ×2 (08:32→21:02)
[2024-07-16] MEDS: METOPROLOL SUCCINATE EXT REL 50 MG TABCR PO ×2 (08:32→21:02)
[2024-07-16] MEDS: ASPIRIN 81 MG ENTERIC TABLET PO (08:32)
[2024-07-16] MEDS: PANTOPRAZOLE 40 MG TABLET PO ×2 (08:32→21:02)
[2024-07-16] MEDS: calcium polycarbophiL 625 MG TABLET PO (08:33)
[2024-07-16] MEDS: MIDODRINE HCL 10 MG TABLET 5 MG PO ×3 (08:33→16:46)
[2024-07-16] MEDS: ROSUVASTATIN 20 MG TABLET PO (08:33)
[2024-07-16] MEDS: CLOPIDOGREL BISULFATE 75 MG TABLET PO (08:33)
[2024-07-16] MEDS: ENOXAPARIN 40 MG/0.4 ML SYRINGE SUB-Q (08:33)
[2024-07-16] MEDS: SODIUM CHLORIDE 0.9% IV 1,000 ML 999 ML IV CONT (08:35)
--- NOTE | 2024-07-16 09:09 | PCPTNOTE ---
Attempted to see patient for PT, however patient was eating breakfast.
[2024-07-16] MEDS: INSULIN ASPART (*BKC) 100 UNITS/ML 8 UNITS SUB-Q ×3 (09:25→16:45)
[2024-07-16 11:38] LABS: Glucose Point of Care 185 mg/dl (65-105)
[2024-07-16 16:33] LABS: Glucose Point of Care 169 mg/dl (65-105)
[2024-07-16] MEDS: LOPERAMIDE HCL 2 MG CAPSULE PO (16:46)
[2024-07-16] MEDS: INSULIN GLARGINE (*BKC) 100 UNITS/ML 30 UNITS SUB-Q (20:48)
[2024-07-16] MEDS: traZODone HCL 50 MG TABLET PO (21:02)
[2024-07-17] VITALS (15 sets, daily range): BP systolic 95–158; BP diastolic 49–78; PULSE 70–102; RESP 18–20; TEMP 36.2–36.8; O2SAT 98–100
[2024-07-17] MEDS: LOPERAMIDE HCL 2 MG CAPSULE PO ×3 (04:22→17:36)
[2024-07-17 06:02] LABS: Alanine Aminotransferase 20 U/L (6-35); Albumin Level 3.4 g/dL (3.5-5.1); Alkaline Phosphatase 129 U/L (38-126); Anion Gap 6 mmol/L (4-12); Aspartate Amino Transferase 21 U/L (14-36); Bilirubin,Total 0.8 mg/dL (0.2-1.3); Blood Urea Nitrogen 19 mg/dL (7-17); Calcium 9.1 mg/dL (8.4-10.2); Carbon Dioxide 26 mmol/L (22-30); Chloride 101 mmol/L (98-107); Estimated CRCL calculation 45 ml/min; Estimated Glomerular Filt Rate > 60; Glucose 196 mg/dL (65-110); Potassium 4.7 mmol/L (3.4-5.0); Sodium 133 mmol/L (137-145)
[2024-07-17] MEDS: SUCRALFATE SUSP 100 MG/ML 10 ML UDC 1000 MG PO ×4 (06:38→20:22)
--- NOTE | 2024-07-17 08:00 | P.PNIM_ITS ---
Progress Note: A&P Assessment and Plan (1) Orthostatic hypotension: Code(s): I95.1 - Orthostatic hypotension Status: Acute Assessment and Plan: positive orthostatics this morning 150/56 prone and 78/51 standing, fluid bolus ordered and midodrine TID. 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 She had bright red blood from the ileostomy on 07/11. Multiple interventions Bleeding 07/11 early AM, stopped with topical SurgiSeal and silver nitrate * 07/10 Plavix held and ASA continued (due to recent CABG) * Hgb stable, 9-10 * Ostomy nurse consultation 07/12 regarding leakage issues, appreciate assistance * Continue to follow CBC * Patient reports pills are whole in ostomy. Can't change most of them to liquid, try crushing and putting in applesauce if she can tolerate them, likely due to decreased transit time * Restart Plavix on 07/15 (3) Dehydration: Code(s): E86.0 - Dehydration Status: Acute Assessment and Plan: See above 07/10 hold furosemide (4) Insulin dependent type 2 diabetes mellitus: Code(s): E11.9 - Type 2 diabetes mellitus without complications; Z79.4 - longterm (current) use of insulin Status: Acute Assessment and Plan: Home meds: 70 units of 70/30 twice daily and at the [facility] 50 units of 70/30 twice daily * Switched to basal/bolus: Lovolog 8units TID, Lantus 30 hs * Discussed the benefits of continuous glucose monitoring, she will discuss with her outpatient physician * Blood sugars relatively controlled, 130-160, occasional blood sugar over 200 and no hypoglycemia (5) Coronary artery disease: Onset Date: 11/04/17 Code(s): I25.10 - Atherosclerotic heart disease of [place] coronary artery without angina pectoris Status: Acute Assessment and Plan: Status post CABG June 15. Plavix held 07/10 due to bleeding --continue aspirin --continue Plavix No surgical plans, no signs of bleeding (6) Essential hypertension: Code(s): I10 - Essential (primary) hypertension Status: Acute Assessment and Plan: Patient currently hypotensive likely due to dehydration Home meds: furosemide 40 daily, losartan 100, metoprolol succinate 50 b.i.d., nifedipine 60 daily blood pressures reviewed and adequately controlled, 122-162/44-56 in the last 3 days --continue to hold furosemide --continue losartan, metoprolol, nifedipine at home doses --restart furosemide as able (7) Protein-calorie malnutrition, moderate: Code(s): E44.0 - Moderate protein-calorie malnutrition Status: Acute Assessment and Plan: Albumin 2.9 07/10. Encouraged p.o. intake Ensure TID (8) Hyperkalemia: Code(s): E87.5 - Hyperkalemia Status: Acute Assessment and Plan: Repeat potassium level WNL (9) Hyponatremia: Code(s): E87.1 - Hypo-osmolality and hyponatremia Status: Acute Assessment and Plan: Patient taken off low-sodium diet placed on regular diabetic diet Repeat BMP tomorrow Time Spent With Patient Time with patient: Greater than 35 minutes Subjective Date/time seen: 07/17/24 08:00 Interval history: Patient again with positive orthostatics were 30 and around, fluid bolus 1 L and Bentyl added, p.r.n. Imodium given. Dietitian consulted for recommendations. Patient with over 2 L of ostomy watery output yesterday, output should be paste like before patient can discharge, patient is not medically ready for discharge. Patient still with surgical cailin from last month, will remove Review of Systems Review of Systems: 12 systems were reviewed and are negativ e except for as per HPI. All systems reviewed & are unremarkable except as noted in HPI and below Exam Narrative: HEENT: PERRL, sclerae nonicteric, pharyngeal mucosa pink and intact NECK: No JVD. CHEST: Clear to auscultation. Normal effort. HEART: NL S1/S2, regular, no murmur. ABDOMEN: BS+, soft, nontender, no mass, no bruits, ostomy x2 intact and functioning. Colostomy with watery output, ileostomy with mucous, No bleeding, somas pink EXTREMITIES: No cyanosis, edema, or clubbing. NEUROLOGIC: CN intact and symmetric to inspection. MUSCULOSKELETAL: Tone and strength symmetric. PSYCH: Alert. Oriented to person, place, and time. Objective Data Vital Signs Vital Signs: Vital Signs - 24 hr 07/16/24 08:14 07/16/24 08:15 07/16/24 08:32 Temperature 96.5 F L 96.5 F L Pulse Rate 86 89 76 Respiratory Rate 18 19 Blood Pressure 113/57 L 78/51 L Pulse Oximetry 100 100 Oxygen Delivery 07/16/24 14:00 07/16/24 12:00 07/16/24 16:00 Temperature 97.0 F L Pulse Rate 76 78 84 Respiratory Rate 18 Blood Pressure 120/70 Pulse Oximetry 98 Oxygen Delivery 07/16/24 20:00 07/16/24 21:02 07/16/24 21:02 Temperature Pulse Rate 82 86 86 Respiratory Rate Blood Pressure Pulse Oximetry Oxygen Delivery 07/16/24 20:00 07/16/24 22:00 07/17/24 00:00 Temperature 97.1 F L Pulse Rate 86 74 Respiratory Rate 20 Blood Pressure 167/59 H Pulse Oximetry 99 Oxygen Delivery Room Air 07/17/24 04:28 07/17/24 05:35 07/17/24 05:43 Temperature 98.3 F 98.3 F Pulse Rate 80 76 76 Respiratory Rate 20 20 Blood Pressure 150/78 H 150/78 H Pulse Oximetry 98 98 Oxygen Delivery 07/17/24 05:44 Temperature 98.3 F Pulse Rate 79 Respiratory Rate 20 Blood Pressure 148/69 H Pulse Oximetry 99 Oxygen Delivery Intake/Output Intake/Output: Intake & Output 07/14/24 07/15/24 07/16/24 07/17/24 23:59 23:59 23:59 23:59 Intake Total 2558 1220 2960 500 Output Total 1225 1500 1125 1200 Balance 1333 -280 1835 -700 Meds/Results Medications: Active Medications Generic Name Dose Route Start Last Admin Trade Name Freq PRN Reason Stop Dose Admin Acetaminophen 650 mg 07/09/24 18:18 Acetaminophen 325 Mg Tablet PO Q4H PRN Mild Pain (1-3) or Fever Amiodarone HCl 200 mg 07/09/24 21:45 07/16/24 21:02 Amiodarone Hcl 200 Mg Tablet PO 200 mg Q12HR [facility] Administration Aspirin 81 mg 07/10/24 09:00 07/16/24 08:32 Aspirin 81 Mg Enteric Tablet PO 08/09/24 08:59 81 mg DAILY [facility] Administration Calcium Polycarbophil 625 mg 07/15/24 09:00 07/16/24 08:33 Calcium Polycarbophil 625 Mg Tablet PO 625 mg QAM [facility] Administration Clopidogrel Bisulfate 75 mg 07/10/24 09:00 07/16/24 08:33 Clopidogrel Bisulfate 75 Mg Tablet PO 75 mg DAILY [facility] Administration Dextrose 12.5 gm 07/09/24 21:15 Dextrose 50% 25 Gm/50 Ml Syringe IV PUSH PRN PRN Hypoglycemia Protocol Enoxaparin Sodium 40 mg 07/15/24 09:00 07/16/24 08:33 Enoxaparin 40 Mg/0.4 Ml Syringe SUB-Q 40 mg DAILY [facility] Administration Furosemide 40 mg 07/10/24 09:00 07/10/24 08:44 Furosemide 40 Mg Tablet PO 40 mg DAILY [facility] Administration Glucagon 1 mg 07/09/24 21:15 Glucagon For Inj 1 Mg Vial IM PRN PRN Hypoglycemia Protocol Glucose 15 gm 07/09/24 21:15 Glucose Oral Gel 15 Gm Of Glucse In 37.5 Gm Tube PO PRN PRN Hypoglycemia Protocol Dextrose 1,000 mls @ 100 mls/hr 07/09/24 21:15 Dextrose 5% 1,000 Ml IVPB PRN PRN Hypoglycemia Protocol Insulin Aspart 3 - 6 units 07/10/24 08:00 07/16/24 16:30 Insulin Aspart (*Bkc) 100 Units/Ml SUB-Q Not Given TIDWM [facility] Protocol Insulin Aspart 1 - 3 units 07/09/24 22:19 07/16/24 21:03 Insulin Aspart (*Bkc) 100 Units/Ml SUB-Q Not Given HS [facility] Protocol Insulin Aspart 8 units 07/10/24 17:00 07/16/24 16:45 Insulin Aspart (*Bkc) 100 Units/Ml SUB-Q 8 units TIDWM [facility] Administration Insulin Glargine 30 units 07/10/24 21:00 07/16/24 20:48 Insulin Glargine (*Bkc) 100 Units/Ml SUB-Q 30 units HS [facility] Administration Loperamide HCl 2 mg 07/14/24 09:46 07/17/24 04:22 Loperamide Hcl 2 Mg Capsule PO 2 mg PRN PRN Administration Diarrhea Losartan Potassium 100 mg 07/10/24 21:00 07/13/24 20:06 Losartan Potassium 100 Mg Tablet PO 100 mg HS [facility] Administration Metoprolol Succinate 50 mg 07/09/24 21:45 07/16/24 21:02 Metoprolol Succinate Ext Rel 50 Mg Tabcr PO 50 mg Q12HR [facility] Administration Midodrine 5 mg 07/16/24 09:00 07/16/24 16:46 Midodrine Hcl 10 Mg Tablet PO 5 mg TID [facility] Administration Nifedipine 60 mg 07/10/24 09:00 07/14/24 10:07 Nifedipine 30 Mg Tab.Er.24 PO Not Given DAILY [facility] Ondansetron HCl 4 mg 07/09/24 18:18 Ondansetron Inj 4 Mg/2 Ml Vial IV PUSH Q4H PRN Nausea Pantoprazole Sodium 40 mg 07/09/24 21:00 07/16/24 21:02 Pantoprazole 40 Mg Tablet PO 40 mg Q12HR [facility] Administration Rosuvastatin Calcium 20 mg 07/10/24 09:00 07/16/24 08:33 Rosuvastatin 20 Mg Tablet PO 20 mg DAILY [facility] Administration Sucralfate 1,000 mg 07/10/24 06:30 07/17/24 06:38 Sucralfate Susp 100 Mg/Ml 10 Ml Udc PO 1,000 mg ACHS [facility] Administration Trazodone HCl 50 mg 07/10/24 21:00 07/16/24 21:02 Trazodone Hcl 50 Mg Tablet PO 50 mg HS [facility] Administration Radiology Results: ITS Impressions Head CT 10/11/24 15:36 IMPRESSION: 1. Normal brain. Chest X-Ray 07/09/24 15:40 IMPRESSION: No acute cardiopulmonary pathology. Abdomen/Pelvis CT 07/11/24 07:45 IMPRESSION: 1. Small pleural effusions. 2. Small pericardial effusion. 3. Stranding in the abdomen, consistent with inflammation versus edema. Labs Labs: Laboratory Results - last 24 hr 07/16/24 07/16/24 07/16/24 07:59 11:32 16:30 Sodium Potassium Chloride Carbon Dioxide Anion Gap BUN Creatinine Estim Creat Clear Calc Estimated GFR Glucose POC Capillary Glucose 164 H 185 H 169 H Calcium Total Bilirubin AST ALT Alkaline Phosphatase Total Protein Albumin 07/17/24 05:35 Sodium 133 L Potassium 4.7 Chloride 101 Carbon Dioxide 26 Anion Gap 6 BUN 19 H Creatinine 0.90 Estim Creat Clear Calc 45 Estimated GFR > 60 Glucose 196 H POC Capillary Glucose Calcium 9.1 Total Bilirubin 0.8 AST 21 ALT 20 Alkaline Phosphatase 129 H Total Protein 7.0 Albumin 3.4 L Quality VTE Prophylaxis VTE prophylaxis: mechanical ordered and pharmacologic ordered Hospitalist [facility] Advance Care Plan I have confirmed that the patient's Advanced Care Plan is present, code status is documented, or surrogate decision maker is listed in patient medical record.: Yes Medication Reconciliation I have utilized all available resources to obtain, update and review the patients current medications (includes all prescriptions, OTC, herbals, cannabis, and nutritional supplements).: Yes
[2024-07-17 08:13] LABS: Glucose Point of Care 163 mg/dl (65-105)
[2024-07-17 08:33] LABS: Glucose Point of Care 160 mg/dl (65-105)
[2024-07-17] MEDS: ROSUVASTATIN 20 MG TABLET PO (08:34)
[2024-07-17] MEDS: calcium polycarbophiL 625 MG TABLET PO (08:35)
[2024-07-17] MEDS: CLOPIDOGREL BISULFATE 75 MG TABLET PO (08:35)
[2024-07-17] MEDS: MIDODRINE HCL 10 MG TABLET 5 MG PO ×3 (08:35→17:36)
[2024-07-17] MEDS: PANTOPRAZOLE 40 MG TABLET PO ×2 (08:35→20:22)
[2024-07-17] MEDS: ASPIRIN 81 MG ENTERIC TABLET PO (08:35)
[2024-07-17] MEDS: ENOXAPARIN 40 MG/0.4 ML SYRINGE SUB-Q (08:36)
[2024-07-17] MEDS: METOPROLOL SUCCINATE EXT REL 50 MG TABCR PO ×2 (08:39→20:22)
[2024-07-17] MEDS: AMIODARONE HCL 200 MG TABLET PO ×2 (08:39→20:22)
[2024-07-17] MEDS: INSULIN ASPART (*BKC) 100 UNITS/ML 8 UNITS SUB-Q ×3 (08:40→17:37)
[2024-07-17 12:13] LABS: Glucose Point of Care 218 mg/dl (65-105)
[2024-07-17] MEDS: DICYCLOMINE HCL 10 MG CAPSULE PO ×3 (13:08→20:22)
[2024-07-17] MEDS: INSULIN ASPART (*BKC) 100 UNITS/ML SUB-Q (13:12)
[2024-07-17] MEDS: SODIUM CHLORIDE 0.9% IV 1,000 ML 999 ML IV CONT (13:23)
[2024-07-17 17:30] LABS: Glucose Point of Care 161 mg/dl (65-105)
[2024-07-17] MEDS: INSULIN GLARGINE (*BKC) 100 UNITS/ML 30 UNITS SUB-Q (20:21)
[2024-07-17] MEDS: traZODone HCL 50 MG TABLET PO (20:22)
[2024-07-18] VITALS (17 sets, daily range): BP systolic 120–156; BP diastolic 46–60; PULSE 70–102; RESP 17–20; TEMP 36.1–36.3; O2SAT 100
[2024-07-18 01:28] LABS: Glucose Point of Care 170 mg/dl (65-105)
[2024-07-18] MEDS: SUCRALFATE SUSP 100 MG/ML 10 ML UDC 1000 MG PO ×4 (06:36→20:34)
--- NOTE | 2024-07-18 08:39 | P.PNIM_ITS ---
Progress Note: A&P Assessment and Plan (1) Orthostatic hypotension: Code(s): I95.1 - Orthostatic hypotension Status: Acute Assessment and Plan: positive orthostatics this morning 150/56 prone and 78/51 standing, fluid bolus ordered and midodrine TID. 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 She had bright red blood from the ileostomy on 07/11. Multiple interventions Bleeding 07/11 early AM, stopped with topical SurgiSeal and silver nitrate * 07/10 Plavix held and ASA continued (due to recent CABG) * Hgb stable, 9-10 * Ostomy nurse consultation 07/12 regarding leakage issues, appreciate assistance * Continue to follow CBC * Patient reports pills are whole in ostomy. Can't change most of them to liquid, try crushing and putting in applesauce if she can tolerate them, likely due to decreased transit time * Restart Plavix on 07/15 (3) Dehydration: Code(s): E86.0 - Dehydration Status: Acute Assessment and Plan: See above 07/10 hold furosemide (4) Insulin dependent type 2 diabetes mellitus: Code(s): E11.9 - Type 2 diabetes mellitus without complications; Z79.4 - snf (current) use of insulin Status: Acute Assessment and Plan: Home meds: 70 units of 70/30 twice daily and at the [facility] 50 units of 70/30 twice daily * Switched to basal/bolus: Lovolog 8units TID, Lantus 30 hs * Discussed the benefits of continuous glucose monitoring, she will discuss with her outpatient physician * Blood sugars relatively controlled, 130-160, occasional blood sugar over 200 and no hypoglycemia (5) Coronary artery disease: Onset Date: 11/04/17 Code(s): I25.10 - Atherosclerotic heart disease of [place] coronary artery without angina pectoris Status: Acute Assessment and Plan: Status post CABG June 15. Plavix held 07/10 due to bleeding --continue aspirin --continue Plavix No surgical plans, no signs of bleeding (6) Essential hypertension: Code(s): I10 - Essential (primary) hypertension Status: Acute Assessment and Plan: Patient currently hypotensive likely due to dehydration Home meds: furosemide 40 daily, losartan 100, metoprolol succinate 50 b.i.d., nifedipine 60 daily blood pressures reviewed and adequately controlled, 122-162/44-56 in the last 3 days --continue to hold furosemide --continue losartan, metoprolol, nifedipine at home doses --restart furosemide as able (7) Protein-calorie malnutrition, moderate: Code(s): E44.0 - Moderate protein-calorie malnutrition Status: Acute Assessment and Plan: Albumin 2.9 07/10. Encouraged p.o. intake Ensure TID Fiber (8) Hyperkalemia: Code(s): E87.5 - Hyperkalemia Status: Acute Assessment and Plan: Repeat potassium level WNL (9) Hyponatremia: Code(s): E87.1 - Hypo-osmolality and hyponatremia Status: Acute Assessment and Plan: Patient taken off low-sodium diet placed on regular diabetic diet Repeat BMP tomorrow Time Spent With Patient Time with patient: Greater than 35 minutes Subjective Date/time seen: 07/18/24 08:39 Interval history: Patient's orthostatics were negative, stool output trending down Patient with brown liquid no fecal matter in the ostomy bag, Imodium adjusted Review of Systems Review of Systems: 12 systems were reviewed and are negativ e except for as per HPI. All systems reviewed & are unremarkable except as noted in HPI and below Exam Narrative: HEENT: PERRL, sclerae nonicteric, pharyngeal mucosa pink and intact NECK: No JVD. CHEST: Clear to auscultation. Normal effort. HEART: NL S1/S2, regular, no murmur. ABDOMEN: BS+, soft, nontender, no mass, no bruits, ostomy x2 intact and functioning. Colostomy with watery output, ileostomy with mucous, No bleeding, somas pink EXTREMITIES: No cyanosis, edema, or clubbing. NEUROLOGIC: CN intact and symmetric to inspection. MUSCULOSKELETAL: Tone and strength symmetric. PSYCH: Alert. Oriented to person, place, and time. Objective Data Vital Signs Vital Signs: Vital Signs - 24 hr 07/17/24 09:16 07/17/24 09:17 07/17/24 09:17 Temperature Pulse Rate 88 87 100 Respiratory Rate Blood Pressure 150/49 H 153/60 H 95/50 L Pulse Oximetry Oxygen Delivery 07/17/24 14:41 07/17/24 12:00 07/17/24 16:00 Temperature 97.1 F L Pulse Rate 80 87 70 Respiratory Rate 18 Blood Pressure 158/55 H Pulse Oximetry 100 Oxygen Delivery 07/17/24 20:22 07/17/24 20:22 07/17/24 20:00 Temperature Pulse Rate 80 80 102 H Respiratory Rate Blood Pressure Pulse Oximetry Oxygen Delivery 07/17/24 20:00 07/17/24 22:00 07/18/24 00:00 Temperature 97.7 F Pulse Rate 89 70 Respiratory Rate 20 Blood Pressure 157/52 H Pulse Oximetry 100 Oxygen Delivery Room Air 07/18/24 04:00 07/18/24 05:43 07/18/24 05:45 Temperature 97.3 F L 97.3 F L Pulse Rate 84 80 80 Respiratory Rate 20 20 Blood Pressure 150/53 H 150/53 H Pulse Oximetry 100 100 Oxygen Delivery 07/18/24 05:46 07/18/24 05:47 Temperature 97.0 F L 97.4 F L Pulse Rate 82 92 Respiratory Rate 20 20 Blood Pressure 148/57 H 134/46 L Pulse Oximetry 100 100 Oxygen Delivery Intake/Output Intake/Output: Intake & Output 07/15/24 07/16/24 07/17/24 07/18/24 23:59 23:59 23:59 23:59 Intake Total 1220 2960 2880 400 Output Total 1500 1125 1875 1000 Balance -280 1835 1005 -600 Meds/Results Medications: Active Medications Generic Name Dose Route Start Last Admin Trade Name Freq PRN Reason Stop Dose Admin Acetaminophen 650 mg 07/09/24 18:18 Acetaminophen 325 Mg Tablet PO Q4H PRN Mild Pain (1-3) or Fever Amiodarone HCl 200 mg 07/09/24 21:45 07/17/24 20:22 Amiodarone Hcl 200 Mg Tablet PO 200 mg Q12HR [facility] Administration Aspirin 81 mg 07/10/24 09:00 07/17/24 08:35 Aspirin 81 Mg Enteric Tablet PO 08/09/24 08:59 81 mg DAILY [facility] Administration Calcium Polycarbophil 625 mg 07/15/24 09:00 07/17/24 08:35 Calcium Polycarbophil 625 Mg Tablet PO 625 mg QAM [facility] Administration Clopidogrel Bisulfate 75 mg 07/10/24 09:00 07/17/24 08:35 Clopidogrel Bisulfate 75 Mg Tablet PO 75 mg DAILY [facility] Administration Dextrose 12.5 gm 07/09/24 21:15 Dextrose 50% 25 Gm/50 Ml Syringe IV PUSH PRN PRN Hypoglycemia Protocol Dicyclomine HCl 10 mg 07/17/24 13:00 07/17/24 20:22 Dicyclomine Hcl 10 Mg Capsule PO 10 mg QID [facility] Administration Enoxaparin Sodium 40 mg 07/15/24 09:00 07/17/24 08:36 Enoxaparin 40 Mg/0.4 Ml Syringe SUB-Q 40 mg DAILY [facility] Administration Furosemide 40 mg 07/10/24 09:00 07/10/24 08:44 Furosemide 40 Mg Tablet PO 40 mg DAILY [facility] Administration Glucagon 1 mg 07/09/24 21:15 Glucagon For Inj 1 Mg Vial IM PRN PRN Hypoglycemia Protocol Glucose 15 gm 07/09/24 21:15 Glucose Oral Gel 15 Gm Of Glucse In 37.5 Gm Tube PO PRN PRN Hypoglycemia Protocol Dextrose 1,000 mls @ 100 mls/hr 07/09/24 21:15 Dextrose 5% 1,000 Ml IVPB PRN PRN Hypoglycemia Protocol Insulin Aspart 3 - 6 units 07/10/24 08:00 07/17/24 17:10 Insulin Aspart (*Bkc) 100 Units/Ml SUB-Q Not Given TIDWM [facility] Protocol Insulin Aspart 1 - 3 units 07/09/24 22:19 07/17/24 20:42 Insulin Aspart (*Bkc) 100 Units/Ml SUB-Q Not Given HS [facility] Protocol Insulin Aspart 8 units 07/10/24 17:00 07/17/24 17:37 Insulin Aspart (*Bkc) 100 Units/Ml SUB-Q 8 units TIDWM [facility] Administration Insulin Glargine 30 units 07/10/24 21:00 07/17/24 20:21 Insulin Glargine (*Bkc) 100 Units/Ml SUB-Q 30 units HS [facility] Administration Loperamide HCl 2 mg 07/17/24 18:00 07/17/24 17:36 Loperamide Hcl 2 Mg Capsule PO 2 mg BID [facility] Administration Losartan Potassium 100 mg 07/10/24 21:00 07/13/24 20:06 Losartan Potassium 100 Mg Tablet PO 100 mg HS [facility] Administration Metoprolol Succinate 50 mg 07/09/24 21:45 07/17/24 20:22 Metoprolol Succinate Ext Rel 50 Mg Tabcr PO 50 mg Q12HR [facility] Administration Midodrine 5 mg 07/16/24 09:00 07/17/24 17:36 Midodrine Hcl 10 Mg Tablet PO 5 mg TID [facility] Administration Nifedipine 60 mg 07/10/24 09:00 07/14/24 10:07 Nifedipine 30 Mg Tab.Er.24 PO Not Given DAILY [facility] Ondansetron HCl 4 mg 07/09/24 18:18 Ondansetron Inj 4 Mg/2 Ml Vial IV PUSH Q4H PRN Nausea Pantoprazole Sodium 40 mg 07/09/24 21:00 07/17/24 20:22 Pantoprazole 40 Mg Tablet PO 40 mg Q12HR [facility] Administration Rosuvastatin Calcium 20 mg 07/10/24 09:00 07/17/24 08:34 Rosuvastatin 20 Mg Tablet PO 20 mg DAILY [facility] Administration Sucralfate 1,000 mg 07/10/24 06:30 07/18/24 06:36 Sucralfate Susp 100 Mg/Ml 10 Ml Udc PO 1,000 mg ACHS [facility] Administration Trazodone HCl 50 mg 07/10/24 21:00 07/17/24 20:22 Trazodone Hcl 50 Mg Tablet PO 50 mg HS [facility] Administration Radiology Results: ITS Impressions Head CT 07/09/24 15:36 IMPRESSION: 1. Normal brain. Chest X-Ray 07/09/24 15:40 IMPRESSION: No acute cardiopulmonary pathology. Abdomen/Pelvis CT 07/11/24 07:45 IMPRESSION: 1. Small pleural effusions. 2. Small pericardial effusion. 3. Stranding in the abdomen, consistent with inflammation versus edema. Labs Labs: Laboratory Results - last 24 hr 07/17/24 07/17/24 07/17/24 12:06 17:10 19:44 POC Capillary Glucose 218 H 161 H 170 H Quality VTE Prophylaxis VTE prophylaxis: mechanical ordered and pharmacologic ordered Hospitalist [facility] Advance Care Plan I have confirmed that the patient's Advanced Care Plan is present, code status is documented, or surrogate decision maker is listed in patient medical record.: Yes Medication Reconciliation I have utilized all available resources to obtain, update and review the patients current medications (includes all prescriptions, OTC, herbals, canna bis, and nutritional supplements).: Yes
[2024-07-18 08:44] LABS: Glucose Point of Care 223 mg/dl (65-105)
[2024-07-18] MEDS: ENOXAPARIN 40 MG/0.4 ML SYRINGE SUB-Q (08:54)
[2024-07-18] MEDS: PANTOPRAZOLE 40 MG TABLET PO ×2 (08:54→20:34)
[2024-07-18] MEDS: ASPIRIN 81 MG ENTERIC TABLET PO (08:54)
[2024-07-18] MEDS: MIDODRINE HCL 10 MG TABLET 5 MG PO ×3 (08:54→16:37)
[2024-07-18] MEDS: CLOPIDOGREL BISULFATE 75 MG TABLET PO (08:54)
[2024-07-18] MEDS: LOPERAMIDE HCL 2 MG CAPSULE PO (08:54)
[2024-07-18] MEDS: ROSUVASTATIN 20 MG TABLET PO (08:54)
[2024-07-18] MEDS: METOPROLOL SUCCINATE EXT REL 50 MG TABCR PO ×2 (08:55→20:34)
[2024-07-18] MEDS: DICYCLOMINE HCL 10 MG CAPSULE PO ×4 (08:55→20:34)
[2024-07-18] MEDS: INSULIN ASPART (*BKC) 100 UNITS/ML SUB-Q ×3 (08:55→20:35)
[2024-07-18] MEDS: calcium polycarbophiL 625 MG TABLET PO (08:55)
[2024-07-18] MEDS: INSULIN ASPART (*BKC) 100 UNITS/ML 8 UNITS SUB-Q (08:55)
[2024-07-18] MEDS: AMIODARONE HCL 200 MG TABLET PO ×2 (08:55→20:34)
[2024-07-18] MEDS: INSULIN ASPART (*BKC) 100 UNITS/ML 10 UNITS SUB-Q ×2 (12:15→17:50)
[2024-07-18 12:18] LABS: Glucose Point of Care 230 mg/dl (65-105)
[2024-07-18] MEDS: LOPERAMIDE HCL 2 MG CAPSULE 4 MG PO (16:38)
[2024-07-18 17:31] LABS: Glucose Point of Care 199 mg/dl (65-105)
[2024-07-18] MEDS: INSULIN GLARGINE (*BKC) 100 UNITS/ML 30 UNITS SUB-Q (20:35)
[2024-07-18] MEDS: traZODone HCL 50 MG TABLET PO (21:44)
[2024-07-19] VITALS (15 sets, daily range): BP systolic 108–161; BP diastolic 52–67; PULSE 76–103; RESP 16–20; TEMP 36.2–36.8; O2SAT 98–100
[2024-07-19] MEDS: SUCRALFATE SUSP 100 MG/ML 10 ML UDC 1000 MG PO ×4 (05:40→20:31)
[2024-07-19 08:14] LABS: Glucose Point of Care 249 mg/dl (65-105)
[2024-07-19 08:20] LABS: Glucose Point of Care 208 mg/dl (65-105)
[2024-07-19] MEDS: calcium polycarbophiL 625 MG TABLET PO (09:02)
[2024-07-19] MEDS: ROSUVASTATIN 20 MG TABLET PO (09:03)
[2024-07-19] MEDS: CLOPIDOGREL BISULFATE 75 MG TABLET PO (09:03)
[2024-07-19] MEDS: PANTOPRAZOLE 40 MG TABLET PO ×2 (09:03→20:31)
[2024-07-19] MEDS: DICYCLOMINE HCL 10 MG CAPSULE PO ×4 (09:03→20:32)
[2024-07-19] MEDS: ASPIRIN 81 MG ENTERIC TABLET PO (09:03)
[2024-07-19] MEDS: LOPERAMIDE HCL 2 MG CAPSULE 4 MG PO ×2 (09:03→17:36)
--- NOTE | 2024-07-19 09:04 | P.PNIM_ITS ---
Progress Note: A&P Assessment and Plan (1) Orthostatic hypotension: Code(s): I95.1 - Orthostatic hypotension Status: Acute Assessment and Plan: positive orthostatics this morning 150/56 prone and 78/51 standing, fluid bolus ordered and midodrine TID. 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 She had bright red blood from the ileostomy on 07/11. Multiple interventions Bleeding 07/11 early AM, stopped with topical SurgiSeal and silver nitrate * 07/10 Plavix held and ASA continued (due to recent CABG) * Hgb stable, 9-10 * Ostomy nurse consultation 07/12 regarding leakage issues, appreciate assistance * Continue to follow CBC * Patient reports pills are whole in ostomy. 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 Plavix held 07/10 due to bleeding --continue aspirin --continue Plavix No surgical plans, no signs of bleeding (6) Essential hypertension: Code(s): I10 - Essential (primary) hypertension Status: Acute Assessment and Plan: Patient currently hypotensive likely due to dehydration Home meds: furosemide 40 daily, losartan 100, metoprolol succinate 50 b.i.d., nifedipine 60 daily blood pressures reviewed and adequately controlled, 122-162/44-56 in the last 3 days --continue to hold furosemide --continue losartan, metoprolol, nifedipine at home doses --restart furosemide as able (7) Protein-calorie malnutrition, moderate: Code(s): E44.0 - Moderate protein-calorie malnutrition Status: Acute Assessment and Plan: Albumin 2.9 07/10. Encouraged p.o. intake Ensure TID Fiber (8) Hyperkalemia: Code(s): E87.5 - Hyperkalemia Status: Acute Assessment and Plan: Repeat potassium level WNL (9) Hyponatremia: Code(s): E87.1 - Hypo-osmolality and hyponatremia Status: Acute Assessment and Plan: Patient taken off low-sodium diet placed on regular diabetic diet Repeat BMP tomorrow Time Spent With Patient Time with patient: Greater than 35 minutes Subjective Date/time seen: 07/19/24 09:04 Interval history: Patient's orthostatics were negative, stool output trending down Ostomy output improving and is more stool like, patient will likely be medically ready to discharge tomorrow Review of Systems Review of Systems: 12 systems were reviewed and are negativ e except for as per HPI. All systems reviewed & are unremarkable except as noted in HPI and below Exam Narrative: HEENT: PERRL, sclerae nonicteric, pharyngeal mucosa pink and intact NECK: No JVD. CHEST: Clear to auscultation. Normal effort. HEART: NL S1/S2, regular, no murmur. ABDOMEN: BS+, soft, nontender, no mass, no bruits, ostomy x2 intact and functioning. Colostomy with watery output was some soft stool, ileostomy with mucous, No bleeding, somas pink EXTREMITIES: No cyanosis, edema, or clubbing. NEUROLOGIC: CN intact and symmetric to inspection. MUSCULOSKELETAL: Tone and strength symmetric. PSYCH: Alert. Oriented to person, place, and time. Objective Data Vital Signs Vital Signs: Vital Signs - 24 hr 07/18/24 12:00 07/18/24 14:18 07/18/24 16:05 Temperature 97.2 F L Pulse Rate 82 84 79 Respiratory Rate 17 Blood Pressure 120/48 L Pulse Oximetry 100 Oxygen Delivery 07/18/24 20:34 07/18/24 20:34 07/18/24 21:06 Temperature 97.0 F L Pulse Rate 84 84 89 Respiratory Rate 20 Blood Pressure 156/60 H Pulse Oximetry 100 Oxygen Delivery 07/18/24 21:08 07/18/24 21:09 07/18/24 21:10 Temperature 97.3 F L 97.0 F L 97.0 F L Pulse Rate 91 89 102 H Respiratory Rate 20 20 20 Blood Pressure 156/57 H 156/60 H 139/52 L Pulse Oximetry 100 100 100 Oxygen Delivery 07/18/24 20:00 07/18/24 20:00 07/19/24 00:00 Temperature Pulse Rate 86 82 Respiratory Rate Blood Pressure Pulse Oximetry Oxygen Delivery Room Air 07/19/24 04:00 07/19/24 06:00 Temperature 97.8 F Pulse Rate 79 76 Respiratory Rate 20 Blood Pressure 140/55 L Pulse Oximetry 98 Oxygen Delivery Intake/Output Intake/Output: Intake & Output 07/16/24 07/17/24 07/18/24 07/19/24 23:59 23:59 23:59 23:59 Intake Total 2960 2880 2580 700 Output Total 1125 1875 2800 1950 Balance 1835 8360 -085 -[id number] Meds/Results Medications: Active Medications Generic Name Dose Route Start Last Admin Trade Name Freq PRN Reason Stop Dose Admin Acetaminophen 650 mg 07/09/24 18:18 Acetaminophen 325 Mg Tablet PO Q4H PRN Mild Pain (1-3) or Fever Amiodarone HCl 200 mg 07/09/24 21:45 07/18/24 20:34 Amiodarone Hcl 200 Mg Tablet PO 200 mg Q12HR [place] Administration Aspirin 81 mg 07/10/24 09:00 07/18/24 08:54 Aspirin 81 Mg Enteric Tablet PO 08/09/24 08:59 81 mg DAILY [facility] Administration Calcium Polycarbophil 625 mg 07/15/24 09:00 07/18/24 08:55 Calcium Polycarbophil 625 Mg Tablet PO 625 mg QAM [facility] Administration Clopidogrel Bisulfate 75 mg 07/10/24 09:00 07/18/24 08:54 Clopidogrel Bisulfate 75 Mg Tablet PO 75 mg DAILY [facility] Administration Dextrose 12.5 gm 07/09/24 21:15 Dextrose 50% 25 Gm/50 Ml Syringe IV PUSH PRN PRN Hypoglycemia Protocol Dicyclomine HCl 10 mg 07/17/24 13:00 07/18/24 20:34 Dicyclomine Hcl 10 Mg Capsule PO 10 mg QID [place] Administration Enoxaparin Sodium 40 mg 07/15/24 09:00 07/18/24 08:54 Enoxaparin 40 Mg/0.4 Ml Syringe SUB-Q 40 mg DAILY [facility] Administration Furosemide 40 mg 07/10/24 09:00 07/10/24 08:44 Furosemide 40 Mg Tablet PO 40 mg DAILY [facility] Administration Glucagon 1 mg 07/09/24 21:15 Glucagon For Inj 1 Mg Vial IM PRN PRN Hypoglycemia Protocol Glucose 15 gm 07/09/24 21:15 Glucose Oral Gel 15 Gm Of Glucse In 37.5 Gm Tube PO PRN PRN Hypoglycemia Protocol Dextrose 1,000 mls @ 100 mls/hr 07/09/24 21:15 Dextrose 5% 1,000 Ml IVPB PRN PRN Hypoglycemia Protocol Insulin Aspart 3 - 6 units 07/10/24 08:00 07/18/24 17:34 Insulin Aspart (*Bkc) 100 Units/Ml SUB-Q Not Given TIDWM [place] Protocol Insulin Aspart 1 - 3 units 07/09/24 22:19 07/18/24 20:35 Insulin Aspart (*Bkc) 100 Units/Ml SUB-Q 1 units HS [facility] Administration Protocol Insulin Aspart 10 units 07/18/24 12:00 07/18/24 17:50 Insulin Aspart (*Bkc) 100 Units/Ml SUB-Q 10 units TIDWM [place] Administration Insulin Glargine 30 units 07/10/24 21:00 07/18/24 20:35 Insulin Glargine (*Bkc) 100 Units/Ml SUB-Q 30 units HS [facility] Administration Loperamide HCl 4 mg 07/18/24 17:00 07/18/24 16:38 Loperamide Hcl 2 Mg Capsule PO 4 mg BID [facility] Administration Losartan Potassium 100 mg 07/10/24 21:00 07/13/24 20:06 Losartan Potassium 100 Mg Tablet PO 100 mg HS [facility] Administration Metoprolol Succinate 50 mg 07/09/24 21:45 07/18/24 20:34 Metoprolol Succinate Ext Rel 50 Mg Tabcr PO 50 mg Q12HR [place] Administration Midodrine 5 mg 07/16/24 09:00 07/18/24 16:37 Midodrine Hcl 10 Mg Tablet PO 5 mg TID [facility] Administration Nifedipine 60 mg 07/10/24 09:00 07/14/24 10:07 Nifedipine 30 Mg Tab.Er.24 PO Not Given DAILY [facility] Ondansetron HCl 4 mg 07/09/24 18:18 Ondansetron Inj 4 Mg/2 Ml Vial IV PUSH Q4H PRN Nausea Pantoprazole Sodium 40 mg 07/09/24 21:00 07/18/24 20:34 Pantoprazole 40 Mg Tablet PO 40 mg Q12HR [place] Administration Rosuvastatin Calcium 20 mg 07/10/24 09:00 07/18/24 08:54 Rosuvastatin 20 Mg Tablet PO 20 mg DAILY [place] Administration Sucralfate 1,000 mg 07/10/24 06:30 07/19/24 05:40 Sucralfate Susp 100 Mg/Ml 10 Ml Udc PO 1,000 mg ACHS [facility] Administration Trazodone HCl 50 mg 07/10/24 21:00 07/18/24 21:44 Trazodone Hcl 50 Mg Tablet PO 50 mg HS [place] Administration Radiology Results: ITS Impressions Head CT 07/09/24 15:36 IMPRESSION: 1. Normal brain. Chest X-Ray 07/09/24 15:40 IMPRESSION: No acute cardiopulmonary pathology. Abdomen/Pelvis CT 07/11/24 07:45 IMPRESSION: 1. Small pleural effusions. 2. Small pericardial effusion. 3. Stranding in the abdomen, consistent with inflammation versus edema. Labs Labs: Laboratory Results - last 24 hr 07/18/24 07/18/24 07/18/24 12:09 17:26 19:54 POC Capillary Glucose 230 H 199 H 249 H 07/19/24 08:14 POC Capillary Glucose 208 H Quality VTE Prophylaxis VTE prophylaxis: mechanical ordered and pharmacologic ordered
[2024-07-19] MEDS: INSULIN ASPART (*BKC) 100 UNITS/ML SUB-Q ×3 (09:07→20:32)
[2024-07-19] MEDS: INSULIN ASPART (*BKC) 100 UNITS/ML 10 UNITS SUB-Q ×3 (09:07→17:37)
[2024-07-19] MEDS: METOPROLOL SUCCINATE EXT REL 50 MG TABCR PO ×2 (09:09→20:30)
[2024-07-19] MEDS: AMIODARONE HCL 200 MG TABLET PO ×2 (09:09→20:31)
[2024-07-19 11:55] LABS: Glucose Point of Care 231 mg/dl (65-105)
--- NOTE | 2024-07-19 13:51 | PCDIET ---
Nutrition consult: Discussed with [employer] INSTRUCTOR Nel re: ostomy output being watery. Soft stool is common with ileostomy as the water absorption in the colon is bypassed. Pt is optimized on Banatrol TID. Glucerna BID for additional 220 kcal and 10 g protein each. Eating 50-100% on diabetic diet. No additional nutrition interventions needed. Thank you for this consult.
[2024-07-19 16:55] LABS: Glucose Point of Care 173 mg/dl (65-105)
[2024-07-19] MEDS: traZODone HCL 50 MG TABLET PO (20:31)
[2024-07-19] MEDS: INSULIN GLARGINE (*BKC) 100 UNITS/ML 34 UNITS SUB-Q (20:32)
[2024-07-19 21:12] LABS: Glucose Point of Care 233 mg/dl (65-105)
[2024-07-20] VITALS: PULSE 83
[2024-07-20 04:00] VITALS: PULSE 74
[2024-07-20 04:12] VITALS: BP 148/57; PULSE 75; RESP 16; TEMP 36.6; O2SAT 100
[2024-07-20] MEDS: SUCRALFATE SUSP 100 MG/ML 10 ML UDC 1000 MG PO (06:19)
[2024-07-20 08:00] VITALS: PULSE 76
[2024-07-20 08:12] LABS: Glucose Point of Care 191 mg/dl (65-105)
[2024-07-20] MEDS: ROSUVASTATIN 20 MG TABLET PO (08:49)
[2024-07-20] MEDS: CLOPIDOGREL BISULFATE 75 MG TABLET PO (08:49)
[2024-07-20] MEDS: calcium polycarbophiL 625 MG TABLET PO (08:49)
[2024-07-20] MEDS: PANTOPRAZOLE 40 MG TABLET PO (08:49)
[2024-07-20] MEDS: INSULIN ASPART (*BKC) 100 UNITS/ML 10 UNITS SUB-Q (08:49)
[2024-07-20] MEDS: DICYCLOMINE HCL 10 MG CAPSULE PO (08:49)
[2024-07-20] MEDS: ASPIRIN 81 MG ENTERIC TABLET PO (08:49)
[2024-07-20 08:52] VITALS: PULSE 97
[2024-07-20] MEDS: AMIODARONE HCL 200 MG TABLET PO (08:52)
[2024-07-20] MEDS: METOPROLOL SUCCINATE EXT REL 50 MG TABCR PO (08:52)
--- NOTE | 2024-07-20 09:51 | P.DS_ITS ---
DS: Admitting Diagnosis Discharge Date 07/20/2024 Admitting Diagnosis Acute dehydration DS: Discharge Diagnosis Discharge Diagnosis (1) Orthostatic hypotension: Code(s): I95.1 - Orthostatic hypotension Status: Acute Assessment and Plan: positive orthostatics this morning 150/56 prone and 78/51 standing, fluid bolus ordered and midodrine TID. 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 She had bright red blood from the ileostomy on 07/11. Multiple interventions Bleeding 07/11 early AM, stopped with topical SurgiSeal and silver nitrate * 07/10 Plavix held and ASA continued (due to recent CABG) * Hgb stable, 9-10 * Ostomy nurse consultation 07/12 regarding leakage issues, appreciate assistance * Continue to follow CBC * Patient reports pills are whole in ostomy. 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 Status: Acute Assessment and Plan: Home meds: 70 units of 70/30 twice daily and at the detention 50 units of 70/30 twice daily * Switched to basal/bolus: Lovolog 8units TID, Lantus 30 hs * Discussed the benefits of continuous glucose monitoring, she will discuss with her outpatient physician * Blood sugars relatively controlled, 130-160, occasional blood sugar over 200 and no hypoglycemia (5) Coronary artery disease: Onset Date: 11/04/17 Code(s): I25.10 - Atherosclerotic heart disease of [place] coronary artery without angina pectoris Status: Acute Assessment and Plan: Status post CABG June 15. Plavix held 07/10 due to bleeding --continue aspirin --continue Plavix No surgical plans, no signs of bleeding (6) Essential hypertension: Code(s): I10 - Essential (primary) hypertension Status: Acute Assessment and Plan: Patient currently hypotensive likely due to dehydration Home meds: furosemide 40 daily, losartan 100, metoprolol succinate 50 b.i.d., nifedipine 60 daily blood pressures reviewed and adequately controlled, 122-162/44-56 in the last 3 days --continue to hold furosemide --continue losartan, metoprolol, nifedipine at home doses --restart furosemide as able (7) Protein-calorie malnutrition, moderate: Code(s): E44.0 - Moderate protein-calorie malnutrition Status: Acute Assessment and Plan: Albumin 2.9 07/10. Encouraged p.o. intake Ensure TID Fiber (8) Hyperkalemia: Code(s): E87.5 - Hyperkalemia Status: Acute Assessment and Plan: Repeat potassium level WNL (9) Hyponatremia: Code(s): E87.1 - Hypo-osmolality and hyponatremia Status: Acute Assessment and Plan: Patient taken off low-sodium diet placed on regular diabetic diet Repeat BMP tomorrow DS: Summary Hospital Course Reason for hospitalization: Acute dehydration due to over productive colostomy and hypoglycemia Hospital Course: This is a pleasant 68-year-old female with coronary artery disease status post 4 vessel bypass on 06/15/2024 at [facility], insulin-dependent type 2 diabetes mellitus, hypertension, dyslipidemia, peptic ulcers, and what sounds like a partial colectomy with ostomy who presented to the emergency department via EMS from [facility] with multiple complaints. The patient provides the following history. Following her bypass surgery she had what sounds like a bowel obstruction with necrosis or possible perforation (the patient and her son do not know the specifics and records have been requested) and she was in the ICU for an extended stay. She was discharged to [facility] for rehab one week ago and she has not been happy with the care that she is receiving there. The patient feels as though they are not responsive to her needs in a timely fashion and she does not believe they have the appropriate bags for her ostomy as they are continuously leaking. Her glucose has been labile with a reported level in the 40s this morning however was over 300 last evening. She does not think that she is getting enough fluid and feels dehydrated. Today she is feeling lightheaded and dizzy with position changes and overall feels weak. She denies fever, chills, sweats, syncope, chest pain, pleuritic pain, palpitations, shortness of breath, cough, abdominal pain, vomiting, and dysuria. In the ED: She was afebrile on arrival with stable vital signs. Labs were significant for WBC count of 8.2, hemoglobin 11.2, platelet 340, sodium 132, chloride 96, BUN 23, creatinine 0.90, glucose 388, total bilirubin 1.4, CRP 5.3 lactic acid 3.6. Urinalysis was positive for 1+ protein, 3+ glucose, 3+ leukocyte esterase, 11 to 20 RBC, 51 to 100 WBC, 1+ bacteria, and many squamous cells with 11 to 20 casts seen on microscopy. Head CT showed normal brain. Chest x-ray showed no acute cardiopulmonary disease. She was given ceftriaxone 1 g for possible urinary tract infection and 2 L normal saline bolus. She is being admitted in this setting for further hydration and care coordination consult as she reports will not be to returning to [facility]. On 07/10/2024 the patient had a rapid response for blood in her ostomy bag with cares. When they removed the patient's ostomy bag to further evaluate they noticed arterial spurting blood flow from the medial side of her right ostomy. Multiple interventions were done including silver nitrate, Surgicel, and pressure. The patient has not had any further bleeding the next morning. Patient had hypoglycemia from malabsorption her home insulin was decreased while she was in hospital, on day of discharge patient was hyperglycemic and may restart on her home insulin. Patient had several bouts of hypotension and orthostatic hypotension due to severe dehydration from over productive colostomy that was having over 2 L of watery output per day. The patient was started on several medications including fiber, Bentyl, mannitol and scheduled Imodium. Her ostomy output goal is to have 600-1800 mL with toothpaste like output, Imodium ordered to prevent dehydration, hold Imodium if output is less than 800 mL in 12 hours. Patient will need a follow-up with her general surgeon and cardiothoracic surgeon as previously planned. Status at Discharge Functional status at discharge: uses cane/walker Time Spent with Patient Time attestation: Total time spent providing and/or coordinating discharge services: Exam Narrative: HEENT: PERRL, sclerae nonicteric, pharyngeal mucosa pink and intact NECK: No JVD. CHEST: Clear to auscultation. Normal effort. HEART: NL S1/S2, regular, no murmur. ABDOMEN: BS+, soft, nontender, no mass, no bruits, ostomy x2 intact and functioning. Colostomy with watery output was some soft stool-improving, ileostomy with mucous, No bleeding, somas pink EXTREMITIES: No cyanosis, edema, or clubbing. NEUROLOGIC: CN intact and symmetric to inspection. MUSCULOSKELETAL: Tone and strength symmetric. PSYCH: Alert. Oriented to person, place, and time. DS: Data Data Completed and Pending Labs on day of discharge: Labs from last 24 hours 07/20/24 07/19/24 07/19/24 07:58 20:03 16:51 POC Capillary Glucose 191 H 233 H 173 H 07/19/24 11:34 POC Capillary Glucose 231 H Discharge Plan Discharge Discharging Clinician: Nel Walton Anticipated Discharge Date/Time: 07/20/24 09:52 Patient Disposition: SNF Activity: january shower Diet: high fiber Wound Care Instructions: follow printed instructions Discharge Instructions: Discharge instructions: You were admitted for acute dehydration related to your new colostomy, able to keep your ostomy output with toothpaste like consistency, you had been prescribed several medications to help. Restart home insulin 70 units of 70/30 twice daily and at the detention 50 units of 70/30 twice daily New medications prescribed: Imodium BID, goal for ostomy to have 600-1800 mL in 24 hours with toothpaste like output, hold if ostomy output is less than 800 mL and 12 hours Banatrol with meals Ensure with meals Daily Fiber Follow-up with JASON for ostomy teaching and management You are recommended to be on a high-fiber diabetic diet. You are activity as tolerated Monitor blood pressures Avoid social areas, you wear a mask when in social settings Encouraged to continue with yearly vaccinations Return to the emergency department if he developed sudden shortness of breath, chest pain, nausea, vomiting, upset stomach or intractable diarrhea Return to the emergency department if you develop fever greater than 101.5 Follow-up with: Your primary care physician within 1-2 weeks for post hospitalization check up Follow-up with your surgeon within 1-2 weeks for ostomy evaluation Follow-up with your cardiac surgeon as previously recommended Thank you for choosing [facility] for your healthcare needs Patient Instructions: Dehydration (DC), High Fiber Diet (DC), Short Bowel Syndrome (DC), Colectomy (DC) Stand Alone Forms: General Discharge Information Discharge Medications: New calcium polycarbophil [Fiber (calcium polycarbophil)] 625 mg Tablet 625 mg PO QAM Qty: 30 0RF dicyclomine 10 mg Capsule 10 mg PO QID Qty: 90 0RF loperamide 2 mg Capsule 4 mg PO BID Qty: 14 0RF Rx Instructions: Hold for colostomy output less than 800 in 12 hours. Ostomy output goal for 24 hours is between 600-1800, unit colostomy output to be toothpaste like, to water into will become dehydrated, too thick and you will become constipated. Continued sucralfate 100 mg/mL suspension 10 ml PO ACHS rosuvastatin 20 mg tablet 20 mg PO DAILY furosemide 40 mg tablet 40 mg PO DAILY acetaminophen 325 mg Tablet 650 mg PO Q8H PRN (Reason: Pain (Scale Score 1-3)) trazodone 50 mg tablet 50 mg PO HS amiodarone 200 mg tablet 200 mg PO BID Rx Instructions: 200 mg BID until 07/15, then changes to 200 mg daily clopidogrel 75 mg tablet 75 mg PO DAILY pantoprazole 40 mg tablet,delayed release (DR/EC) 40 mg PO DAILY metoprolol succinate 100 mg tablet extended release 24 hr 50 mg PO BID aspirin 81 mg Capsule 81 mg PO DAILY Humulin 70/30 U-100 Insulin 100 unit/mL (70-30) suspension 50 unit SUBCUT BID Held nifedipine 60 mg tablet extended release 60 mg PO DAILY Hold Instructions: Resume on 07/27/24. Hold for 1 week, blood pressure hypertensive may restart losartan 100 mg tablet 100 mg PO HS Hold Instructions: Resume on 07/23/24. May restart if patient is still hypertensive after Lasix Discontinued bisacodyl 10 mg Suppository 10 mg RECTAL DAILY PRN (Reason: Constipation) sennosides [Senokot] 8.6 mg Tablet 8.6 mg PO PRN PRN (Reason: Constipation) Qty: 30 0RF Date of admission: 07/14/24 11:10 Primary Care Provider: Torres Pedroza Admitting Provider: Ovidio Calero Attending physician on admission: Joslyn Mcdonnell Condition: Stable Quality VTE Prophylaxis VTE prophylaxis: mechanical ordered and pharmacologic ordered Hospitalist MIPS Heart Failure (Exclusion) Patient has history of Heart Transplant or Left Ventricular Assistive Device?: No IF YES, STOP HERE Heart Failure (Qualifier) Patient has current or prior documentation of LVEF less than or equal to 40%, or mod/servere depressed LVSF?: No IF NO, STOP HERE
[2024-07-20 11:57] LABS: SARS-CoV-2 RNA PCR Negative (Negative)
== END 2024-07-20 11:40 | DRG 982 ==
LOC: ANHED 17:13 → ANH3MED 18:58
PROVIDERS: Internal Medicine; Nurse Practitioner; Nurse Practitioner Acute Care; Physician Assistant; Admitting Provider Internal Medicine; Emergency Provider Emergency Medicine; PCP Internal Medicine; Visit Provider Nurse Practitioner Gerontology
DX: E86.0 Dehydration (principal); E44.0 Moderate protein-calorie malnutrition; K94.11 Enterostomy hemorrhage; K94.09 Other complications of colostomy; E87.1 Hypo-osmolality and hyponatremia; I95.1 Orthostatic hypotension; I25.10 Atherosclerotic heart disease of native coronary artery without angina pectoris; I10 Essential (primary) hypertension; E87.5 Hyperkalemia; E11.65 Type 2 diabetes mellitus with hyperglycemia; E78.5 Hyperlipidemia, unspecified; Z11.52 Encounter for screening for COVID-19; Z95.1 Presence of aortocoronary bypass graft; Z79.4 Long term (current) use of insulin; Z79.82 Long term (current) use of aspirin; Z68.26 Body mass index [BMI] 26.0-26.9, adult; Z87.11 Personal history of peptic ulcer disease; I25.2 Old myocardial infarction; Z95.5 Presence of coronary angioplasty implant and graft; Z90.49 Acquired absence of other specified parts of digestive tract; Z86.16 Personal history of COVID-19
CPT/HCPCS: 36415; 70450; 71046; 74176; 80048; 80053; 81001; 82948; 83036; 83605; 83735; 84132; 84443; 85014; 85018; 85025; 85027; 85610; 85730; 86140; 87040; 87086; 87635; 93005; 96361; 96365; 96375; 96376; 97110; 97162; 97166; 97530; 97535; 99213; 99215; 99285; A9270; G0378; G0463; J0696; J1650; J1815; J2270; J2405; J7030

== ENCOUNTER 2024-10-21 14:30 | Inpatient (IN) | payer MEDICARE, MEDICAID, SELFPAY ==
[2024-10-21] VITALS (14 sets, daily range): BP systolic 105–146; BP diastolic 42–67; PULSE 78–90; RESP 13–20; TEMP 36.4; O2SAT 100; BMI 24.7
--- NOTE | ~2024-10-21 | XR_ITS ---
HISTORY: ulcer of 2nd right toe COMPARISON: None TECHNIQUE: 3 views of the right foot were performed FINDINGS: In the region of clinical concern (the right second toe) there is significant soft tissue swelling wi th bony erosion likely osteomyelitis of the peripheral most portion of the distal phalanx. Soft tissu e swelling extends to the dorsum of the forefoot. Scattered lucency within the proximal and middle ph alanx of the second toe. IMPRESSION: Significant soft tissue swelling with bony erosion the peripheral most portion of the di stal phalanx of the second toe Reviewed, dictated and finalized at location A. GRINDER IMPRESSION: Significant soft tissue swelling with bony erosion the peripheral most portion of the distal phalanx of the second toe
--- NOTE | ~2024-10-21 | XR_ITS ---
CHEST RADIOGRAPH CLINICAL HISTORY: increased oxygen needs . COMPARISON: 07/09/2024 TECHNIQUE: Single portable view of the chest. FINDINGS Sternal wires and mediastinal clips are identified, the wires are midline and intact. Clip projecting over the atrial appendage. The remainder of the cardiomediastinal silhouette is otherwise unremarkable. The lungs are clear. IMPRESSION: No focal infiltrate or effusion. Reviewed, dictated and finalized at location A. LE DRILLER
--- NOTE | 2024-10-21 14:40 | ED_ITS ---
HPI - Extremity Injury (Lower) General Chief Complaint: Extremity Injury, Lower <Deb Augustine, PHOTO STUDIO ASSISTANT - Last Filed: 10/21/24 14:42> Stated Complaint: wound to toe on left foot <Deb Augustine APRN - Last Filed: 10/21/24 14:42> Time Seen by Provider: 10/21/24 14:35 <Deb Augustine PHOTO STUDIO ASSISTANT - Last Filed: 10/21/24 14:42> Focused HPI: Patient is a 69-year-old female who presents to the ER with concerns of infected 2nd phalange on her right foot. She reports she 1st started noticing the infection at the beginning of the month. Patient reports her primary care provider has been watching the wound, and sent her here to get a ?MRI. Patient endorses a history of diabetes, cardiac surgery in May, colostomy, neuropathy. She denies any pain, recent fevers, streaking redness up her leg, calf pain. GENERAL: Well-appearing, obese, and in no acute distress. HEAD: Normocephalic, atraumatic. CHEST: Clear to auscultation. ?No respiratory distress. HEART: Regular rate and rhythm.? NEURO: ?Alert and oriented x3. Patient screened in triage and initial orders placed.? ?Additional care and disposition to be based upon?diagnostic testing and treatment. <Deb Augustine, PHOTO STUDIO ASSISTANT - Last Filed: 10/21/24 14:42> Focused HPI: Patient is a 69-year-old female who presents to the ER with concerns of infected 2nd phalange on her right foot. She reports she 1st started noticing the infection at the beginning of the month. Patient reports her primary care provider has been watching the wound, and sent her here to get a ?MRI. Patient endorses a history of diabetes, cardiac surgery in May, colostomy, neuropathy. She denies any pain, recent fevers, streaking redness up her leg, calf pain. GENERAL: Well-appearing, obese, and in no acute distress. HEAD: Normocephalic, atraumatic. CHEST: Clear to auscultation. ?No respiratory distress. HEART: Regular rate and rhythm.? NEURO: ?Alert and oriented x3. Patient screened in triage and initial orders placed.? ?Additional care and disposition to be based upon?diagnostic testing and treatment. Agree with triage assessment, patient states that [place] [facility] she has had wound care and states that she has been soaking her foot in Epson salts. She states that she has not taking any antibiotics for her infection. Also admits that secondary to her diabetes she has peripheral neuropathy and cannot feel much of her foot. <Emili Rahman MD - Last Filed: 10/21/24 19:57> Related Data Home Medications: Home Medications ?Medication ?Instructions ?Recorded ?Confirmed ?Last Taken ?Type losartan 100 mg tablet 100 mg PO HS 04/23/22 09/06/24 07/09/24 History metoprolol succinate 100 mg 50 mg PO BID 04/23/22 09/06/24 07/09/24 History tablet,extended release 24 hr aspirin 81 mg capsule 81 mg PO DAILY 08/08/22 09/06/24 07/09/24 History insulin human U-100 NPH-regulr 50 unit subcut BID 08/08/22 09/06/24 07/09/24 History 70-30 mix 100 unit/mL subcutaneous susp (Humulin 70/30 U-100 Insulin) rosuvastatin 20 mg tablet 20 mg PO DAILY 04/06/24 09/06/24 07/09/24 History sucralfate 100 mg/mL oral 10 ml PO ACHS 04/06/24 09/06/24 07/09/24 History suspension acetaminophen 325 mg tablet 650 mg PO Q8H PRN Pain (Scale 07/09/24 09/06/24 Unknown History Score 1-3) amiodarone 200 mg tablet 200 mg PO BID 07/09/24 09/06/24 07/09/24 History clopidogrel 75 mg tablet 75 mg PO DAILY 07/09/24 09/06/24 07/09/24 History furosemide 40 mg tablet 40 mg PO DAILY 07/09/24 09/06/24 07/09/24 History nifedipine 60 mg tablet,extended 60 mg PO DAILY 07/09/24 09/06/24 07/09/24 History release pantoprazole 40 mg tablet,delayed 40 mg PO DAILY 07/09/24 09/06/24 07/09/24 History release trazodone 50 mg tablet 50 mg PO HS 07/09/24 09/06/24 07/08/24 History <Deb Augustine APRN - Last Filed: 10/21/24 14:42> Allergies/Adverse Reactions: Allergies Allergy/AdvReac Type Severity Reaction Status Date / Time cephalexin (Keflex) Allergy Intermediate Hives Verified 10/21/24 14:59 clopidogrel (From Plavix) Allergy Unknown Verified 10/21/24 14:59 <Deb Augustine PHOTO STUDIO ASSISTANT - Last Filed: 10/21/24 14:42> Review of Systems 2 Review of Systems: All systems are reviewed and are negative unless stated otherwise in the HPI. <Emili Rahman MD - Last Filed: 10/21/24 19:57> PMFSH Past Medical History Medical History: Medical History Esophagitis with gastritis Peptic ulcer of stomach Insulin dependent type 2 diabetes mellitus Pneumonia due to COVID-19 virus (04/05/22) Coronary artery disease (11/04/17) Non-STEMI (non-ST elevated myocardial infarction) (04/06/22) Hypertension Hyperlipidemia <Deb Augustine PHOTO STUDIO ASSISTANT - Last Filed: 10/21/24 14:42> Surgical History Surgical History: Surgical History History of partial colectomy History of four vessel coronary artery bypass graft (05/2024) [facility] History of coronary artery stent placement History of appendectomy <Deb Augustine APRN - Last Filed: 10/21/24 14:42> Family History Family History: Family History Other CHF (congestive heart failure) <Deb Augustine APRN - Last Filed: 10/21/24 14:42> Social History Social History: Social History Social History: Surrogate medical decision maker: Babatunde Prakash, son ([phone]). Code status: Full code. Smoking status: Never smoker Alcohol intake: never Alcohol use details: rare alcohol use only in small amounts Substance use: never Substance use type: does not use Do You Feel Safe in your Home?: Yes Lack of Transportation: No Lack of Food: Never True Current Housing: I Have Housing Concerned About Future Housing: No Difficulty Paying Gas/Electric Bills: No Difficulty Paying for Meds: No Currently Unemployed: No Education: High School Diploma/GED Difficulty w/ Childcare or Family Care: No Living arrangements: with family Additional living arrangements comments: She lives with her brother and her beagle Vick. She has 1 son. 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 Spiritual care concerns: No <Deb Augustine APRN - Last Filed: 10/21/24 14:42> Exam 2 Narrative: General: Alert, awake, afebrile, in no acute distress. HEENT: PERRL, no rhinorrhea, no post nasal drip, oropharynx clear. Neck: Trachea midline, no JVD, no lymphadenopathy. Cardiovascular: Regular rate and rhythm, no murmurs, rubs or gallops, no peripheral edema. Respiratory: Clear to auscultation bilaterally, no tachypnea, no wheezing, no rhonchi, no rubs, no respiratory distress. Abdomen: Soft, nontender, nondistended, no rebound, no guarding, no peritoneal signs. Musculoskeletal: Right foot 2nd toe cellulitis with abscess and pearly all inked yellow greenish drainage Skin: No rashes or petechia, no signs of infection. Psychiatric: Alert and oriented, normal behavior and judgment for situation. Neurological: Alert and oriented to person, place, and time. Follows all commands. No focal deficits, speech is clear and fluent. <Emili Rahman MD - Last Filed: 10/21/24 19:57> Course Vital Signs Vital signs: Vital Signs Temperature 97.5 F L 10/21/24 14:54 Pulse Rate 78 10/21/24 14:54 Respiratory Rate 16 10/21/24 14:54 Blood Pressure 105/51 L 10/21/24 14:54 Pulse Oximetry 100 10/21/24 14:54 Oxygen Delivery Room Air 10/21/24 14:54 Temperature 97.5 F L 10/21/24 14:54 Pulse Rate 80 10/21/24 17:50 Respiratory Rate 18 10/21/24 17:50 Blood Pressure 111/58 L 10/21/24 17:50 Pulse Oximetry 100 10/21/24 17:50 Oxygen Delivery Room Air 10/21/24 14:54 <Deb Augustine APRN - Last Filed: 10/21/24 14:42> Vital Signs Temperature 97.5 F L 10/21/24 14:54 Pulse Rate 78 10/21/24 14:54 Respiratory Rate 16 10/21/24 14:54 Blood Pressure 105/51 L 10/21/24 14:54 Pulse Oximetry 100 10/21/24 14:54 Oxygen Delivery Room Air 10/21/24 14:54 Temperature 97.5 F L 10/21/24 14:54 Pulse Rate 80 10/21/24 17:50 Respiratory Rate 18 10/21/24 17:50 Blood Pressure 111/58 L 10/21/24 17:50 Pulse Oximetry 100 10/21/24 17:50 Oxygen Delivery Room Air 10/21/24 14:54 <Emili Rahman MD - Last Filed: 10/21/24 19:57> MDM - Extremity Injury (Lower) MDM Narrative Medical decision making narrative: The patient was evaluated by myself in the emergency department. History is obtained from patient who is an independent historian and physical exam was performed. External medical records were reviewed at this time. IV was established and pertinent tests were ordered. Patient was administered 1 L IV fluid bolus with normal saline. EKG was obtained which revealed sinus rhythm rate of 78 beats per minute, no evidence of acute ischemia with limitation of baseline artifact. EKG was independently interpreted by me and is currently pending official cardiology read. Laboratory results obtained revealing a leukocytosis of 15.4, hemoglobin of 8.3 which is around patient's baseline, sodium 126, potassium 6.3, bicarb 17, BUN 69 creatinine 1.74 which is higher than patient's baseline, C reactive protein 3.2, urinalysis did reveal urinary tract infection with 3+ leuk esterases and 51-100 white blood cells. At this time, patient was administered 1 g of calcium gluconate, 10 units of IV insulin, dextrose, 30 g of Kayexalate and 10 mg of albuterol for hyperkalemia. Patient was also started on maintenance fluids with normal saline at a rate of 100 cc/hour. Imaging studies obtained included a right foot x-ray which was independently interpreted by me revealin. Significant soft tissue swelling with bony erosion the peripheral most portion of the distal phalanx of the second toe consistent with osteomyelitis. Patient was started on IV vancomycin and ciprofloxacin to cover her for osteomyelitis. Blood cultures were obtained prior to antibiotic administration. Differential diagnosis considerations include cellulitis, sepsis, osteomyelitis. Comorbidities impacting this visit include history of diabetes mellitus. I have evaluated and discussed social determinants of health with the patient that could potentially impact subsequent diagnosis and treatment plans. On repeat assessment of the patient, reevaluation revealed that the patient is doing well and is in no acute distress. Patient symptoms have improved since she arrived to our emergency department. Repeat vital signs were all reviewed and noted to be stable. Differential diagnosis and treatment plan were discussed with the patient at bedside. Patient agrees with discussion and after shared medical decision making agrees with [admission/discharge]. All questions were answered to the patient's satisfaction. Case was discussed with the on-call TELETYPIST Chema at 1945 regarding admission and he accepted admission. Patient was admitted in stable condition. <Emili Rahman MD - Last Filed: 10/21/24 19:57> Lab Data Result diagrams: 10/21/24 17:46 10/21/24 17:46 <Deb Augustine APRN - Last Filed: 10/21/24 14:42> Labs: Lab Results 10/21/24 10/21/24 10/21/24 Range/Units 17:45 17:46 18:46 WBC 15.4 H (4.5-10.0) K/mm3 RBC 2.72 L (4.2-5.4) M/mm3 Hgb 8.3 L (12.0-15.0) g/dL Hct 26.0 L (37.0-47.0) % MCV 95.6 (80-100) fl MCH 30.5 (26-34) pg MCHC 31.9 L (32-36) g/dl RDW 15.6 H (11.5-14.5) % Plt Count 385 H (150-375) k/mm3 MPV 9.4 (7.4-10.4) fl Immature Gran % (Auto) 1.2 H (0-0.5) % Neut % (Auto) 74.5 H (45.5-73.1) % Lymph % (Auto) 15.5 L (18.3-44.2) % [place] % (Auto) 6.7 (2.6-8.5) % Eos % (Auto) 1.4 (0-4.4) % Baso % (Auto) 0.7 (0.2-1.2) % Lymph # (Auto) 2.38 (0.9-3.2) K/mm3 [place] # (Auto) 1.0 H (0.1-0.6) K/mm3 Eos # (Auto) 0.2 (0-0.3) K/mm3 Baso # (Auto) 0.1 (0.0-0.1) K/mm3 Abs Immat Gran (auto) 0.18 H (0.00-0.031) K/mm3 Absolute Neuts (auto) 11.5 H (1.3-6.7) K/mm3 Absolute Nucleated RBC 0.000 (0.0-0.012) K/mm3 Nucleated RBC % 0.0 (0.0-0.2) % ESR 104 H (0-20) mm/hr PT 15.7 H (11.1-14.7) Seconds INR 1.2 APTT 31.2 (22.3-36.8) Seconds Sodium 126 L (137-145) mmol/L Potassium 6.3 H* (3.4-5.0) mmol/L Chloride 96 L (98-107) mmol/L Carbon Dioxide 17 L (22-30) mmol/L Anion Gap 13 H (4-12) mmol/L BUN 69 H D (7-17) mg/dL Creatinine 1.74 H (0.7-1.0) mg/dL Estim Creat Clear Calc 24 ml/min Estimated GFR 29 L (59 - ) Glucose 134 H (65-110) mg/dL Lactic Acid 1.7 (0.7-2.0) mmol/L Calcium 9.6 (8.4-10.2) mg/dL Total Bilirubin 0.6 (0.2-1.3) mg/dL AST 19 (14-36) U/L ALT 19 (6-35) U/L Alkaline Phosphatase 108 (38-126) U/L Troponin I 0.012 (0.000-0.034) ng/mL C-Reactive Protein 3.2 H (<1.0) mg/dL Total Protein 8.0 (6.3-8.2) g/dL Albumin 3.8 (3.5-5.1) g/dL Urine Color Yellow (Yellow) Urine Appearance Cloudy H (Clear) Urine pH 5.0 (5.0-9.0) Ur Specific [place] 1.013 (1.001-1.035) Urine Protein Negative (Negative) mg/dL Urine Glucose (UA) Negative (Negative) mg/dL Urine Ketones Negative (Negative) mg/dL Ur Blood (Man) Negative (Negative) Urine Nitrate Negative (Negative) Urine Bilirubin Negative (Negative) Urine Urobilinogen 0.2 (<2.0) mg/dL Add Ur Microanalysis Reviewed Leukocyte Esterase Rfl 3+ H (Negative) MILLI/UL Urine RBC 0-2 (0-2) /hpf Urine WBC 51-100 H (0-3) /hpf Ur Squamous Epith Cells Few (Few) /hpf Urine Bacteria 1+ H /hpf Urine Casts 6-10 Hyaline Casts Present (None) /lpf <Deb Augustine, PHOTO STUDIO ASSISTANT - Last Filed: 10/21/24 14:42> Lab Results 10/21/24 10/21/24 10/21/24 Range/Units 17:45 17:46 18:46 WBC 15.4 H (4.5-10.0) K/mm3 RBC 2.72 L (4.2-5.4) M/mm3 Hgb 8.3 L (12.0-15.0) g/dL Hct 26.0 L (37.0-47.0) % MCV 95.6 (80-100) fl MCH 30.5 (26-34) pg MCHC 31.9 L (32-36) g/dl RDW 15.6 H (11.5-14.5) % Plt Count 385 H (150-375) k/mm3 MPV 9.4 (7.4-10.4) fl Immature Gran % (Auto) 1.2 H (0-0.5) % Neut % (Auto) 74.5 H (45.5-73.1) % Lymph % (Auto) 15.5 L (18.3-44.2) % [place] % (Auto) 6.7 (2.6-8.5) % Eos % (Auto) 1.4 (0-4.4) % Baso % (Auto) 0.7 (0.2-1.2) % Lymph # (Auto) 2.38 (0.9-3.2) K/mm3 [place] # (Auto) 1.0 H (0.1-0.6) K/mm3 Eos # (Auto) 0.2 (0-0.3) K/mm3 Baso # (Auto) 0.1 (0.0-0.1) K/mm3 Abs Immat Gran (auto) 0.18 H (0.00-0.031) K/mm3 Absolute Neuts (auto) 11.5 H (1.3-6.7) K/mm3 Absolute Nucleated RBC 0.000 (0.0-0.012) K/mm3 Nucleated RBC % 0.0 (0.0-0.2) % ESR 104 H (0-20) mm/hr PT 15.7 H (11.1-14.7) Seconds INR 1.2 APTT 31.2 (22.3-36.8) Seconds Sodium 126 L (137-145) mmol/L Potassium 6.3 H* (3.4-5.0) mmol/L Chloride 96 L (98-107) mmol/L Carbon Dioxide 17 L (22-30) mmol/L Anion Gap 13 H (4-12) mmol/L BUN 69 H D (7-17) mg/dL Creatinine 1.74 H (0.7-1.0) mg/dL Estim Creat Clear Calc 24 ml/min Estimated GFR 29 L (59 - ) Glucose 134 H (65-110) mg/dL Lactic Acid 1.7 (0.7-2.0) mmol/L Calcium 9.6 (8.4-10.2) mg/dL Total Bilirubin 0.6 (0.2-1.3) mg/dL AST 19 (14-36) U/L ALT 19 (6-35) U/L Alkaline Phosphatase 108 (38-126) U/L Troponin I 0.012 (0.000-0.034) ng/mL C-Reactive Protein 3.2 H (<1.0) mg/dL Total Protein 8.0 (6.3-8.2) g/dL Albumin 3.8 (3.5-5.1) g/dL Urine Color Yellow (Yellow) Urine Appearance Cloudy H (Clear) Urine pH 5.0 (5.0-9.0) Ur Specific [place] 1.013 (1.001-1.035) Urine Protein Negative (Negative) mg/dL Urine Glucose (UA) Negative (Negative) mg/dL Urine Ketones Negative (Negative) mg/dL Ur Blood (Man) Negative (Negative) Urine Nitrate Negative (Negative) Urine Bilirubin Negative (Negative) Urine Urobilinogen 0.2 (<2.0) mg/dL Add Ur Microanalysis Reviewed Leukocyte Esterase Rfl 3+ H (Negative) MILLI/UL Urine RBC 0-2 (0-2) /hpf Urine WBC 51-100 H (0-3) /hpf Ur Squamous Epith Cells Few (Few) /hpf Urine Bacteria 1+ H /hpf Urine Casts 6-10 Hyaline Casts Present (None) /lpf <Emili Rahman MD - Last Filed: 10/21/24 19:57> Discharge Plan Discharge Clinical Impression: Acute hyponatremia, Urinary tract infection, Osteomyelitis, Diabetic foot ulcer, Acute kidney injury, Acute hyperkalemia Diabetes mellitus Qualifiers: Diabetes mellitus type: type 2 Diabetes mellitus skilled nursing insulin use: with exterminator helper use Diabetes mellitus complication status: with circulatory complication Diabetes mellitus complication detail: with other circulatory complications Qualified Code(s): E11.59 - Type 2 diabetes mellitus with other circulatory complications <Deb Augustine APRN - Last Filed: 10/21/24 14:42> Patient Disposition: Still a Patient <Deb Augustine APRN - Last Filed: 10/21/24 14:42> Condition: Improved <Deb Augustine APRN - Last Filed: 10/21/24 14:42> Patient Language: Ethiopian <Deb Augustine APRN - Last Filed: 10/21/24 14:42> Prescriptions: No Action sucralfate 100 mg/mL suspension 10 ml PO ACHS rosuvastatin 20 mg tablet 20 mg PO DAILY furosemide 40 mg tablet 40 mg PO DAILY acetaminophen 325 mg Tablet 650 mg PO Q8H PRN (Reason: Pain (Scale Score 1-3)) trazodone 50 mg tablet 50 mg PO HS amiodarone 200 mg tablet 200 mg PO BID Rx Instructions: 200 mg BID until 07/15, then changes to 200 mg daily clopidogrel 75 mg tablet 75 mg PO DAILY nifedipine 60 mg tablet extended release 60 mg PO DAILY pantoprazole 40 mg tablet,delayed release (DR/EC) 40 mg PO DAILY calcium polycarbophil [Fiber (calcium polycarbophil)] 625 mg Tablet 625 mg PO QAM Qty: 30 0RF dicyclomine 10 mg Capsule 10 mg PO QID Qty: 90 0RF loperamide 2 mg Capsule 4 mg PO BID Qty: 14 0RF Rx Instructions: Hold for colostomy output less than 800 in 12 hours. Ostomy output goal for 24 hours is between 600-1800, unit colostomy output to be toothpaste like, to water into will become dehydrated, too thick and you will become constipated. losartan 100 mg tablet 100 mg PO HS metoprolol succinate 100 mg tablet extended release 24 hr 50 mg PO BID aspirin 81 mg Capsule 81 mg PO DAILY Humulin 70/30 U-100 Insulin 100 unit/mL (70-30) suspension 50 unit SUBCUT BID <Deb Augustine APRN - Last Filed: 10/21/24 14:42> Follow-up/Referrals: Torres Pedroza MD [Primary Care Provider] - <Deb Augustine APRN - Last Filed: 10/21/24 14:42> Time of Disposition: 19:56 <Deb Augustine APRN - Last Filed: 10/21/24 14:42> 19:56 <Emili Rahman MD - Last Filed: 10/21/24 19:57>
[2024-10-21 17:57] LABS: Basophils Absolute Auto 0.1 K/mm3 (0.0-0.1); Basophils Percent Auto 0.7 % (0.2-1.2); Eosinophils Absolute Auto 0.2 K/mm3 (0-0.3); Eosinophils Percent Auto 1.4 % (0-4.4); Hemoglobin 8.3 g/dL (12.0-15.0); Immature Granulocyte Absolute 0.18 K/mm3 (0.00-0.031); Immature Granulocyte Percent A 1.2 % (0-0.5); Lymphocytes Absolute Auto 2.38 K/mm3 (0.9-3.2); Lymphocytes Percent Auto 15.5 % (18.3-44.2); Mean Corpuscular HGB Conc 31.9 g/dl (32-36); Mean Corpuscular Hemoglobin 30.5 pg (26-34); Mean Corpuscular Volume 95.6 fl (80-100); Mean Platelet Volume 9.4 fl (7.4-10.4); Monocytes Percent Auto 6.7 % (2.6-8.5); Neutrophils Absolute Auto 11.5 K/mm3 (1.3-6.7); Neutrophils Percent Auto 74.5 % (45.5-73.1); Platelet Count Result 385 k/mm3 (150-375); Red Blood Count 2.72 M/mm3 (4.2-5.4); Red Cell Distribution Width 15.6 % (11.5-14.5); White Blood Count 15.4 K/mm3 (4.5-10.0)
[2024-10-21 18:18] LABS: INR 1.2; Partial Thromboplastin Time 31.2 Seconds (22.3-36.8); Prothrombin Time 15.7 Seconds (11.1-14.7)
[2024-10-21 18:30] LABS: Alanine Aminotransferase 19 U/L (6-35); Albumin Level 3.8 g/dL (3.5-5.1); Alkaline Phosphatase 108 U/L (38-126); Anion Gap 13 mmol/L (4-12); Aspartate Amino Transferase 19 U/L (14-36); Bilirubin,Total 0.6 mg/dL (0.2-1.3); Blood Urea Nitrogen 69 mg/dL (7-17); CRP 3.2 mg/dL (<1.0); Calcium 9.6 mg/dL (8.4-10.2); Carbon Dioxide 17 mmol/L (22-30); Chloride 96 mmol/L (98-107); Estimated CRCL calculation 24 ml/min; Estimated Glomerular Filt Rate 29; Glucose 134 mg/dL (65-110); Potassium 6.3 mmol/L (3.4-5.0); Sodium 126 mmol/L (137-145)
--- NOTE | 2024-10-21 18:41 | ECG_ITS ---
Test Date: 2024-10-21 19:44:10 Measurements Intervals [place] Rate: 78 P: 66 GA: 168 QRS: 47 QRSD: 94 T: 85 QT: 338 QTc: 386 Interpretive Statements SINUS RHYTHM NONSPECIFIC T-WAVE ABNORMALITY Compared to ECG 07/09/2024 15:03:36 T-wave abnormality now present Sinus tachycardia no longer present Left ventricular hypertrophy no longer present ST (T wave) deviation no longer present Electronically Signed On 10-22-2024 11:53:21 [employer]REIGHT AIR BRAKE FITTER by Anny Smith
[2024-10-21 18:58] LABS: Lactic Acid Reflex 1.7 mmol/L (0.7-2.0)
[2024-10-21 19:02] LABS: Add Urine Microscopic? YES; Appearance Urine Cloudy (Clear); Bacteria Urine 1+ /hpf; Bilirubin Urine Negative (Negative); Blood Urine Negative (Negative); Color Urine Yellow (Yellow); Glucose Urine UA Negative (Negative); Hyaline Casts Urine Present /lpf; Ketones Urine Negative (Negative); Leukocyte Esterase Ur 3+ LEU/UL (Negative); Need Manual Microscopic Reviewed; Nitrate Urine Negative (Negative); Protein Urine Negative (Negative); RBC Urine 0-2 /hpf (0-2); Specific Grav Ur 1.013 (1.001-1.035); Squamous Epithelial Cell Urine Few /hpf (Few); Urobilinogen Urine 0.2 mg/dL (<2.0); WBC Urine 51-100 /hpf (0-3)
[2024-10-21 19:13] LABS: Troponin I 0.012 ng/mL (0.000-0.034)
[2024-10-21 19:22] LABS: Erythrocyte Sedimentation Rate 104 mm/hr (0-20)
[2024-10-21] MEDS: ALBUTEROL SULFATE NEB 2.5 MG/3 ML INH 10 MG INHALATION (19:40)
[2024-10-21] MEDS: SODIUM CHLORIDE 0.9% IV 1,000 ML 999 ML IV CONT (20:11)
[2024-10-21] MEDS: DEXTROSE 50% 25 GM/50 ML SYRINGE IV PUSH (20:13)
[2024-10-21] MEDS: INSULIN HUMAN REGULAR (*BKC) 100 UNITS/ML 10 UNITS IV PUSH (20:14)
[2024-10-21] MEDS: CALCIUM GLUC 1,000 MG/NS 100ML 1,000 MG/100 ML BAG 200 MG IVPB (20:17)
[2024-10-21] MEDS: SODIUM POLYSTYRENE SULFONONATE 15 GM/60 ML BTL 30 GM PO (20:23)
[2024-10-21] MEDS: metroNIDAZOLE 500 MG/ISO 100ML 500 MG/100 ML BAG 100 MG IVPB (20:41)
[2024-10-21] MEDS: CIPROFLOXACIN 400 MG/D5W 200ML 200 ML 200 MG IVPB (21:43)
[2024-10-21 22:19] LABS: Anion Gap 11 mmol/L (4-12); Blood Urea Nitrogen 65 mg/dL (7-17); Calcium 8.9 mg/dL (8.4-10.2); Carbon Dioxide 15 mmol/L (22-30); Chloride 100 mmol/L (98-107); Estimated CRCL calculation 28 ml/min; Estimated Glomerular Filt Rate 35; Glucose 158 mg/dL (65-110); Sodium 126 mmol/L (137-145)
--- NOTE | 2024-10-21 22:20 | PC.NURSE ---
This patient, Sujata Prakash, was admitted to IMU Room 200-01. Patient/family oriented to hospital policies and general routines including ID bracelet, bed and alarms, visiting hours, pain management, procedures, bathroom and other care routines, personal items, smoking policy, room service/diet, and visiting hours. Information on how to activate the Rapid Response Team has been discussed. Patient/Family are encouraged to report perceived risks to care and to ask questions if they do not understand what they are told or what they should do.
[2024-10-21] MEDS: SODIUM CHLORIDE 0.9% IV 1,000 ML 250 ML IV CONT (22:40)
[2024-10-21] MEDS: VANCOMYCIN 1,750 MG/NS 500 ML 1,750 MG/500 ML BAG 250 MG IVPB (22:40)
[2024-10-22] VITALS (28 sets, daily range): BP systolic 98–138; BP diastolic 38–54; PULSE 83–113; RESP 14–18; TEMP 35.7–36.9; O2SAT 93–100; BMI 24.7
[2024-10-22] MEDS: SODIUM CHLORIDE 0.9% IV 1,000 ML 100 ML IV CONT ×2 (02:53→15:48)
[2024-10-22 05:10] LABS: Basophils Absolute Auto 0.1 K/mm3 (0.0-0.1); Basophils Percent Auto 0.5 % (0.2-1.2); Eosinophils Absolute Auto 0.1 K/mm3 (0-0.3); Eosinophils Percent Auto 1.1 % (0-4.4); Hematocrit 22.9 % (37.0-47.0); Hemoglobin 7.4 g/dL (12.0-15.0); Immature Granulocyte Absolute 0.16 K/mm3 (0.00-0.031); Immature Granulocyte Percent A 1.3 % (0-0.5); Lymphocytes Absolute Auto 1.89 K/mm3 (0.9-3.2); Lymphocytes Percent Auto 14.8 % (18.3-44.2); Mean Corpuscular HGB Conc 32.3 g/dl (32-36); Mean Corpuscular Volume 95.8 fl (80-100); Mean Platelet Volume 9.3 fl (7.4-10.4); Monocytes Percent Auto 7.8 % (2.6-8.5); Neutrophils Absolute Auto 9.5 K/mm3 (1.3-6.7); Neutrophils Percent Auto 74.5 % (45.5-73.1); Platelet Count Result 314 k/mm3 (150-375); Red Blood Count 2.39 M/mm3 (4.2-5.4); Red Cell Distribution Width 15.7 % (11.5-14.5); White Blood Count 12.7 K/mm3 (4.5-10.0)
[2024-10-22 05:24] LABS: Alanine Aminotransferase 15 U/L (6-35); Alkaline Phosphatase 88 U/L (38-126); Anion Gap 9 mmol/L (4-12); Aspartate Amino Transferase 18 U/L (14-36); Bilirubin,Total 0.4 mg/dL (0.2-1.3); Blood Urea Nitrogen 56 mg/dL (7-17); CRP 2.8 mg/dL (<1.0); Calcium 9.1 mg/dL (8.4-10.2); Carbon Dioxide 18 mmol/L (22-30); Chloride 106 mmol/L (98-107); Estimated CRCL calculation 31 ml/min; Estimated Glomerular Filt Rate 39; Glucose 116 mg/dL (65-110); Phosphorus 5.7 mg/dL (2.5-4.5); Potassium 5.9 mmol/L (3.4-5.0); Sodium 133 mmol/L (137-145)
[2024-10-22] MEDS: metroNIDAZOLE 500 MG/ISO 100ML 500 MG/100 ML BAG 100 MG IVPB (05:25)
[2024-10-22 05:28] LABS: Lactic Acid Reflex 1.9 mmol/L (0.7-2.0)
[2024-10-22] MEDS: SUCRALFATE SUSP 100 MG/ML 10 ML UDC 1000 MG PO (05:30)
[2024-10-22 05:37] LABS: Procalcitonin 0.1 ng/mL
[2024-10-22 05:42] LABS: Erythrocyte Sedimentation Rate > 140 mm/hr (0-20)
[2024-10-22] MEDS: SODIUM BICARBONATE 8.4% 50 MEQ/50 ML SYRINGE IV PUSH (05:44)
[2024-10-22] MEDS: SODIUM ZIRCONIUM CYCLOSILICATE 5 GM POWD.PACK 15 GM PO (05:44)
[2024-10-22] MEDS: DEXTROSE 50% 25 GM/50 ML SYRINGE IV PUSH (05:45)
[2024-10-22] MEDS: INSULIN HUMAN REGULAR (*BKC) 100 UNITS/ML 10 UNITS IV PUSH (05:45)
--- OUTSIDE RECORDS SUMMARY | 2024-10-22 05:56 | XMS_ITS | Encounter Summary ---
Author Organization [facility] Address [address] [place] [address]. [place], [place] [id number] [place] [id number] Care Team Providers Care Camp Counselor Name Role Phone José Emmanuel MD Primary Care Provider Kai Bryson MD Unavailable Unavailable Torres Pedroza MD Primary Care Provider [phone] Akiko Hastings MD Unavailable [phone] Encounter Details Date Type Department Care Team (Late st Contact Info) Description 03/06/2016 Abstract [facility] AT [address] [id number] Case Lawson MD Social History Tobacco Use Types Packs/Day Years Used Date Smoking Tobacco: Never Alcohol Use Standard Drinks/Week Comments No 0 (1 standard drink = 0.6 oz pur e alcohol) Comments Unknown Sex and Gender Information Value Date Recorded Sex Assigned at Not on file Legal Sex Female 1:34 AM CDT Gender Identity Not on file Sexual Orientation Not on file Occupation Industry Job Start Date Job End Date 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 EQUIPMENT OPERATOR Office Visit [facility] [place] [phone] Akiko Hastings MD [address] [place] [address] 12/15/2024 3:30 PM CDT Office Visit [facility] [place] [address] Akiko Hastings MD [address] [place], [place] [id number] documented as of this encounter Visit Diagnoses Not on filedocumented in this encounter Additional Health Concerns Infection Onset Date Last Indicated Resolved Time COVID-19 Rule Out 04/06/2022 04/06/2022 04/06/2022 7:09 AM CDT COVID-19 Confirmed Comment:04/04/22 per H&P (SB) 04/06/2022 04/06/2022 05/01/2022 1 2:32 AM CDT documented as of this encounter Care Teams Camp Counselor Relationship Specialty Start Date End Date José Emmanuel MD PCP - General SURGERY 09/05/16 12/13/18 Torres Pedroza MD [address] [place] [id number] PCP - General INTERNAL MEDICINE 12/14/18 Kai Herndon MD CARDIOVASCULAR DISEASE 09/05/16 10/07/19 Akiko Hastings MD [address] [place] [address] CARDIOVASCULAR DISEASE 10/08/19 documented as of this encounter
--- OUTSIDE RECORDS SUMMARY | 2024-10-22 05:56 | XMS_ITS | Clinical Summary ---
Author Organization [facility] [address] [place] [address] Care Team Providers Care Garage Worker Name Role Phone Torres Pedroza MD Primary Care Provider [phone] Akiko Hastings MD Unavailable [phone] Kevin Hancock MD Unavailable [phone] Babatunde Baron MD Unavailable [phone] Carlos Harding MD Unavailable Allergies Active Allergy Reactions Criticality Noted Date Comments Cephalexin Hives Medium 01/02/2022 Clopidogrel Other (See comments) Medium 06/04/2024 Bleeding Medications sucralfate (CARAFATE) suspension 1 gram/10 mL Take 10 mL (1 g total) by mouth 4 (four) times a day (with meals and nightly) Active pantoprazole DR (PROTONIX) 40 mg EC tablet Take 1 tablet (40 mg total) by mouth 2 (two) times a day 3 Active losartan (COZAAR) 100 mg tablet Take 1 tablet (100 mg total) by mouth nightly Active rosuvastatin (CRESTOR) 20 mg tablet Take 1 tablet (20 mg total) by mouth daily 3 Active aspirin 81 mg chewable tablet Take 1 tablet (81 mg total) by mouth daily 4 Active senna (SENOKOT) 8.6 mg tablet Take 1 tablet by mouth daily as needed for constipation 2 Active acetaminophen ER (TYLENOL) 650 mg 8 hr tablet Take 1 tablet (650 mg total) by mouth every 8 (eight) hours as needed for pain Active HumuLIN 70/30 100 unit/mL vial for injection Inject 50 Units under the skin every 12 (twelve) hours 30 mL 4 Active amiodarone (PACERONE) 200 mg tabletIndicatio ns:Prevention of A. Fib Post Cardio-Thoracic Surgery Take 1 tablet (200 mg total) by mouth 2 (two) times a day for 14 days, THEN 1 tablet (200 mg total) daily. 58 tablet 4 Active furosemide (LASIX) 40 mg tablet Take 1 tablet (40 mg total) by mouth daily 30 tablet 11 4 07/02/20 25 Active dicyclomine (BENTYL) 10 mg capsule Take 1 capsule (10 mg total) by mouth 4 (four) times a day before meals and nightly Active polycarbophil (FIBERCON) 625 mg tablet Take 1 tablet (625 mg total) by mouth daily Active metoprolol tartrate (LOPRESSOR) 50 mg immediate release tablet Take 1 tablet (50 mg total) by mouth 2 (two) times a day 60 tablet 4 Active magnesium oxide (MAG-OX) 400 mg (241.3 mg elemental magnesium) tabletIndicatio ns:hypomagnesem ia Take 1 tablet (400 mg total) by mouth 2 (two) times a day 60 tablet 4 Active clopidogreL (PLAVIX) 75 mg tablet Take 1 tablet (75 mg total) by mouth daily 30 tablet 2 4 11/10/19 25 Active ondansetron (ZOFRAN) 4 mg tablet Take 1 tablet (4 mg total) by mouth every 6 (six) hours as needed for nausea or vomiting Active sertraline (ZOLOFT) 25 mg tablet Take 1 tablet (25 mg total) by mouth daily Active collagenase (SANTYL) ointment Apply topically daily Active Active Problems Problem Noted Date Diagnosed Date Acute ischemic enteritis ([facility]) 08/10/2024 MILENA (acute kidney injury) 06/28/2024 Superior mesenteric artery stenosis ([facility]/HCC) Ischemic colitis 06/23/2024 Atrial fibrillation with RVR ([facility]) 4 S/P CABG (coronary artery bypass graft) 06/15/20 24 Coronary artery disease involving [place] heart 0 06/04/2024 Hypertension 05/20/2024 Overview (05/20/2024): History of hypertension treated with medication Hyperlipidemia 05/20/2024 Overview (05/20/2024): History of hyperlipidemia - treated. Diabetes 05/20/2024 CAD, multiple vessel 05/20/2024 Encounters Date Type Department Care Team Description 09/30/2024 9:30 AM [employer] OFFICER Office Visit [facility] [address] [place] [address] Kevin Hancock MD Surgical wound dehiscence, subsequent encounter (Primary Dx) 08/30/2024 11:00 AM [employer] OFFICER Office Visit [facility] [address] [place] [address] [address] [place] [address] Kevin Hancock MD Encounter for post surgical wound check (Primary Dx) 08/19/2024 3:00 PM [employer] OFFICER - 08/19/2024 11:59 PM [employer] OFFICER Hospital Encounter [facility] Infusion Center [facility] [place] [address] Acute ischemic enteritis (CMS/HCC) (HCC) (Primary Dx) Discharge Disposition: Discharge to home or self care 08/12/2024 11:05 AM [employer] OFFICER - 08/12/2024 11:59 PM [employer] OFFICER Hospital Encounter [facility] Cardiac Testing [address] [place] [address] S/P CABG (coronary artery bypass graft) Discharge Disposition: Discharge to home or self care 08/12/2024 10:00 AM [employer] OFFICER Office Visit [facility] [address] [place] [address] Kevin Hancock MD Sternal wound dehiscence, initial encounter (Primary Dx); Hypomagnesemia 08/12/2024 9:35 AM [employer] OFFICER - 08/12/2024 11:59 PM [employer] OFFICER Hospital Encounter [facility] Diagnostic Imaging [facility] [place] [address] S/P CABG (coronary artery bypass graft) Discharge Disposition: Discharge to home or self care 08/11/2024 Telephone [facility] [address] [facility] Advanced Medicine 8th Floor [address] Room [address] [place] [address] JuanJennaAGUILA 08/10/2024 Orders Only [facility] [address] [place] [address] Catherine Lomas RN 07/26/2024 Telephone [facility] [address] [facility] 8th Floor [address] Room [address] [address] Kevin Hancock MD 07/23/2024 Telephone [facility] 8th Floor [address] Room [address] [place] [address] Jenna Martinez RMA 07/23/2024 Telephone [facility] [address] [facility] [address] [place] [address] Sol Folres, NARCISO Follow-up from Last 3 Months Surgical History Surgery Date Site/Laterality Comments CORONARY ANGIOPLASTY 04/26/2011 N/A MANJULA to Circ APPENDECTOMY CARDIAC CATHETERIZATION 03/29/2024 - 04/28/2024 CORONARY ARTERY BYPASS GRAFT Medical History Medical History Date Comments Hypertension Hyperlipidemia Diabetes mellitus (HCC) CAD (coronary artery disease) Cardiomyopathy (HCC) Acute respiratory distress s yndrome (ARDS) due to COVID-19 virus (CMS/HCC) (HCC) 04/06/2022 Type 2 diabetes mellitus (HCC) Gastric ulcer GERD (gastroesophageal reflux disease) Wears glasses Wears dentures upper Family History Medical History Relation Name Comments CABG Father 5 vessel CABG i n his 70's Coronary artery disease Other Fami ly history of premature CAD Relation Name Status Comments Father Other Social History Tobacco Use Types Packs/Day Years Used Date Smoking Tobacco: Never Smokeless Tobacco: Never Tobacco Cessation:Counseling Given: Not Answered [facility] Utilities Answer Date Recorded In the past 12 months has [employer], gas, oil, or water [employer] threatened to shut off services in your home? No 06/16/2024 Social Connection and Isolat ion Panel [NHANES] Answer Date Recorded In a typical week, how many times do you talk on the phone with family, friends, or neighbors? Three times a week 06/16/2024 How often do you get togethe r with friends or relatives? More than three times a week 06/16/2024 How often do you attend chur ch or orthodoxy services? Never 06/16/2024 Do you belong to any clubs o r organizations such as congregational groups, unions, fraternal or athletic groups, or school groups? No 06/16/2024 How often do you attend meet ings of the clubs or organizations you belong to? Never 06/16/2024 Are you , , di vorced, , never , or living with a partner? 06/16/2024 AUDIT-C Answer Date Recorded Q1: How often do you have a drink containing alcohol? Never 06/10/2024 Q2: How many drinks containi ng alcohol do you have on a typical day when you are drinking? Patient does not drink Q3: How often do you have si x or more drinks on one occasion? Never 06/10/2024 Overall Financial Resource Strain (CARDIA) Answe r Date Recorded How hard is it for you to pa y for the very basics like food, housing, medical care, and heating? Not very hard 06/16/2024 Hunger Vital Sign Answer Date Recorded Within the past 12 months, y ou worried that your food would run out before you got the money to buy more. Never true 06/16/20 24 Within the past 12 months, t he food you bought just didn't last and you didn't have money to get more. Never true 06/16/2024 PRAPARE - Transportation Answer Date Re corded In the past 12 months, has l ack of transportation kept you from medical appointments or from getting medications? No 05/30 In the past 12 months, has l ack of transportation kept you from meetings, work, or from getting things needed for daily living? No 06/16/2024 Housing Stability Vital Sign Answer Jean e Recorded In the last 12 months, was t here a time when you were not able to pay the mortgage or rent on time? No 06/16/2024 In the past 12 months, how m any times have you moved where you were living? 0 06/16/2024 At any time in the past 12 m [facility], were you homeless or living in a nursing home (including now)? No 06/16/2024 Personal Safety Answer Date Recorded Have you ever been in or are you currently in a harmful physical or emotional relationship or is someone making you feel afraid or unsafe? Denies 06/15/2024 Comments Unknown Sex and Gender Information Value Date Recorded Sex Assigned at Not on file Legal Sex Female 1:29 PM CDT Gender Identity Not on file Sexual Orientation Not on file Obstetrics History Last Filed Vital Signs Vital Sign Reading Time Taken Comments Blood Pressure 122/73 09/30/2024 9:23 AM [employer] OFFICER Pulse 81 09/30/2024 9:23 AM [employer] OFFICER Temperature 36.7 ??C (98.1 ??F) 09/30/2024 9:23 AM CS T Respiratory Rate 20 07/01/2024 11:00 AM CDT Oxygen Saturation 100% 09/30/2024 9:23 AM [employer] OFFICER Inhaled Oxygen Concentration - - Weight 67.6 kg (149 lb) 09/30/2024 9:23 AM [employer] OFFICER Height 165.1 cm (5' 5 ) 09/30/2024 9:23 AM [employer] OFFICER Body Mass Index 24.79 09/30/2024 9:23 AM [employer] OFFICER Plan of Treatment Health Maintenance Due Date Last Done Comments Albumin Creatinine Ratio, Urine 1953 Breast Cancer Screening-Mammogram 1953 Colon Cancer Screening-Colonoscopy 1953 Depression Screening 1953 Hepatitis C Screening 1953 Osteoporosis Screening-Bone Density Scan 1953 Dilated Eye Exam 1953 Foot Exam 1953 Pneumococcal vaccine 65+ (1 of 2 - PCV) 1959 DTaP/Tdap/Td Vaccine (1 - Tdap) 1964 Hepatitis B Screening 1971 Well Visit 65+ 2018 Influenza Vaccine (#1) 2024 3, 07/02/2022, 05/30/2021, Additional history exists Hemoglobin A1C 12/08/2024 06/10/2024 Lipid Panel 06/10/2025 06/10/2024, 04/06/2024 eGFR 06/30/2025 06/30/2024, 09/2023, 06/28/2024, Additional history exists Fall Risk Assessment 07/01/2025 07/01/2024 Zoster Vaccine Completed 07/19/2022, 10/04/2019 Medical Devices Implanted Type Area Chain Link Fence Installer Device Identifier Shelf Expiration Date Model / Serial / Lot Holidog Vasquez Distal Marker Radiology Stainless Steel Sterile [facility]-D - [id number] Implanted:Qty : 1 on 06/15/2024 by Kevin Hancock MD at [facility] Graft N/A: Heart Holidog 05/29/2026 AM-D / / [id number] Med[employer] Visi-Pro Od6 Mm L37 Mm L80 Cm Balloon Expandable; Solid Radial St [id number] 80 - [id number] Implanted:Qty : 1 on 06/22/2024 by Babatunde Baron MD at [facility] Stent N/A: Superior Mesenteric Artery [employer] Inc [id number] 10/10/2025 [id number] / / [id number] Stent Heart Montagect Implanted:Qty : 1 on 06/15/2024 by Kevin Hancock MD at [facility] N/A: Sternum [employer] 04/28/2027 OS-MON-1 401CT / [id number] / Description:NOT APPROVED BY [facility] DO NOT CHARGE [employer] Device Closure Fibertape Sternal Cerclage Cutting Needle Ar-[id number] - [id number] Implanted:Qty : 3 on 06/15/2024 by Kevin Hancock MD at [facility] [employer] [id number] 03/28/2029 [id number]-[id number] / / [id number] Procedures Procedure Name Priority Date/Time Associated Diagnosis Comments ECG 12-LEAD Routine 08/12/2024 11:16 AM [employer] OFFICER S/P CABG (coronary artery bypass graft) XR CHEST PA LATERAL 2 VIEWS Schedule Routine, Read Routine (OP Routine) 08/12/2024 10:13 AM [employer] OFFICER S/P CABG (coronary artery bypass graft) EGFR Routine 06/30/2024 5:18 AM CDT HEMOGLOBIN A1C Routine 06/10/2024 11:51 AM CDT Coronary artery disease involving [place] heart with other form of angina pectoris, unspecified vessel or lesion type (HCC) Type 2 diabetes mellitus without complication, unspecified whether mcfp insulin use (HCC) Pre-op exam LIPID PANEL Routine 06/10/2024 11:51 AM CDT Coronary artery disease involving [place] heart with other form of angina pectoris, unspecified vessel or lesion type (HCC) Pre-op exam from Last 3 Months or Most Recently Relevant to Health Maintenance Results * ECG 12 lead (08/12/2024 11:16 AM [employer] OFFICER) Ventricular Rate EKG/Min 94 BPM [facility] Atrial Rate 94 BPM [facility] [place]-Interval (MSEC) 146 ms [facility] QRS-Interval (MSEC) 86 ms [facility] QT-Interval (MSEC) 320 ms [facility] QTc 400 ms [facility] P [place] 58 degrees [facility] R [place] 63 degrees [facility] T [place] 158 degrees [facility] Diagnosis Normal sinus rhythm Minimal voltage criteria for LVH, may be normal variant ( Yvan product ) ST & T wave abnormality, consider lateral ischemia Abnormal ECG Confirmed by TERESA VERMA M.D. ([id number]) on 08/12/2024 4:12:25 PM [facility] 08/12/2024 11:1 6 AM [employer] OFFICER 08/12/2024 4:12 PM [employer] OFFICER us Sol Flores NP ECG ORDERABLES Final Resu lt [facility] * X-ray chest 2 views (08/12/2024 10:13 AM [employer] OFFICER) Anatomical Region Laterality Modality Body, Chest N/A Computed Radiogr aphy 08/17/2024 8:58 AM [employer] OFFICER Narrative 08/17/2024 8:59 AM [employer] OFFICER EXAM DESCRIPTION: XR CHEST PA LATERAL 2 VIEWS REASON FOR STUDY: Pt states she had CABG done Jun [address] appointment today where she is supposed to get her stitches removed. Denies chest pain and sob. States chest xray is a follow up from surgery. ? FINDINGS: Posteroanterior and lateral images of the thorax without comparison demonstrate evidence of prior cardiothoracic surgery, a normal heart size, no focal consolidation and no pleural effusions. IMPRESSION: No acute radiographic abnormality. THIS IS AN ELECTRONICALLY VERIFIED FINAL REPORT 08/17/2024 8:59 AM - Electronically signed by ??Andrew Canela M.D. SN D: ??08/17/2024 8:59 AM T: Report ID: [id number] Reading Location: ??[id number] Procedure Note Andrew Canela MD - 08/17/2024 EXAM DESCRIPTION: XR CHEST PA LATERAL 2 VIEWS REASON FOR STUDY: Pt states she had CABG done Jun [address] appointment today where she is supposed to get her stitches removed.Denies chest pain and sob. States chest xray is a follow up from surgery. FINDINGS: Posteroanterior and lateral images of the thorax withoutcomparison demonstrate evidence of prior cardiothoracic surgery, a normal heart size,no focal consolidation and no pleural effusions. IMPRESSION: No acute radiographic abnormality. THIS IS AN ELECTRONICALLY VERIFIED FINAL REPORT 08/17/2024 8:59 AM - Electronically signed by Andrew Canela M.D. SN T: Report ID: [id number] Reading Location: [id number] us Sol Flores NP IMG XR PROCEDURES Final Re sult * eGFR (06/30/2024 5:18 AM CDT) [facility] eGFR 70 >=60 mL/min/1. 73 m2 Comment: Interpretive Data Reference Interval Normal ?>/= 90 mL/min/1.73m2 Mildly decreased* ? 60 - 89 mL/min/1.73m2 Mildly to moderately decreased ?45 - 59 mL/min/1.73m2 Moderately to severely decreased ??30 - 44 mL/min/1.73m2 Severely decreased ?15 - 29 mL/min/1.73m2 Kidney Failure ?< 15 ??mL/min/1.73m2 *Relative to young adult level Estimated glomerular filtration rate is determined by the 2020 CKD-EPI equation recommended by the National Kidney Foundation (A Unifying Approach to GFR Estimation: Recommendations of the NKF-ASK Task Force on Reassessing the Inclusion of Race in Diagnosing Kidney Disease, JASN 2020). The CKD-EPI equation should not be used for patients with unstable renal function and has not been validated in children and those over 70. Current interpretive data was last reviewed 2021. Blood 06/30/2024 5:18 AM CDT 06/30/2024 6:10 AM CDT us Joleen Brewer MD LAB BLOOD ORDERABLES Final Resu lt [facility] [address] [facility] Department [place] [address] * (ABNORMAL) Hemoglobin A1c (06/10/2024 11:51 AM CDT) Hgb A1C 6.7(H) 4.0 - 5.6 % Estimated Average Glucose 146 mg/dL [facility] Comment: The ADA recommends reporting an estimated Average Glucose (eAG) with all Hemoglobin A1c results using the equation derived from a study of 507 normal and diabetic adults. ??Minority populations were underrepresented and children were not included. ?? (Diabetes Care 31:6783-5207, 2008). ??The eAG is not equivalent to a fasting glucose. Blood 06/10/2024 11:5 1 AM CDT 06/10/2024 11:57 AM CDT us Sol Flores NOTE TELLER LAB BLOOD ORDERABLES Final Result [facility] [address] [facility] Department [place] [address] * (ABNORMAL) Lipid panel (06/10/2024 11:51 AM CDT) Cholesterol 161 30 - 199 mg/dL Comment: Interpretive Data Ages < or = 19 years ??Acceptable: ? <170 mg/dL ??Borderline high: ??170-199 mg/dL ??High: ? >or= 200 mg/dL Ages > or = 20 years ??Desirable: ?<200 mg/dL ??Borderline high: ??200-239 mg/dL ??High: ? >or= 240 mg/dL Literature References: 1. Expert Panel on Integrated Guidelines for Cardiovascular Health and Risk Reduction in Children and Adolescents. Pediatrics 2011;128:S213 2. NCEP Expert Panel. Circulation 2004;110:227 Current Interpretive Data was last revised on 2018. Triglycerides 259(H) <=149 mg/dL [facility] Comment: Interpretive Data Ages < or = 9 years ??Acceptable: ? <75 mg/dL ??Borderline high: ??75-99 mg/dL ??High: ? >or= 100 mg/dL Ages 10 to 20 years ??Acceptable: ? <90 mg/dL ??Borderline high: ??90-129 mg/dL ??High: ? >or= 130 mg/dL Ages > or = 20 years ??Desirable: ?<150 mg/dL ??Borderline high: ??150-199 mg/dL ??High: ? 200-499 mg/dL ?Very high: ?? >or= 499 mg/dL Literature References: 1. Expert Panel on Integrated Guidelines for Cardiovascular Health and Risk Reduction in Children and Adolescents. Pediatrics 2011;128:S213 2. NCEP Expert Panel. Circulation 2004;110:227 Current Interpretive Data was last revised on 2018. HDL 53 >=40 mg/dL [facility] Comment: Interpretive Data Ages < or = 19 years ??Acceptable: ? >45 mg/dL ??Borderline low: ?? 40-45 mg/dL ??Low: ? <40 mg/dL Ages > or = 20 years ??Desirable: ?>or= 60 mg/dL ??Low: ? <40 mg/dL Literature References: 1. Expert Panel on Integrated Guidelines for Cardiovascular Health and Risk Reduction in Children and Adolescents. Pediatrics 2011;128:S213 2. NCEP Expert Panel. Circulation 2004;110:227 Current Interpretive Data was last revised on 2018. LDL, calculated 67 <=129 mg/dL [facility] Comment: Interpretive Data Ages < or = 19 years ??Acceptable: ? <110 mg/dL ??Borderline high: ??110-129 mg/dL ??High: ?>or= 130 mg/dL Ages > or = 20 years ??Optimal: ? <100 mg/dL ??Near optimal: ?100-129 mg/dL ??Borderline high: ?? 130-159 mg/dL ??High: ?>160 mg/dL Calculated using the Gonzalo LDL-C estimating equation. This equation was implemented on 2024. Prior to this date LDL-C was estimated using the Friedewald equation. Literature References: 1. Expert Panel on Integrated Guidelines for Cardiovascular Health and Risk Reduction in Children and Adolescents. Pediatrics 2011;128:S213 2. NCEP Expert Panel. Circulation 2004;110:227 3. Gonzalo Shearer et al. BRANDI Cardiol. 2020 January 27;5(5):540-548. doi: 10.1001/jamacardio.2020.0013 Current Interpretive Data was last revised on 2024. Non-HDL Cholesterol 108 mg/dL [facility] Comment: Interpretive Data Ages < or = 19 years ??Acceptable: ?<120 mg/dL ??Borderline high: ??120-144 mg/dL ??High: ?>145 mg/dL Ages > or = 20 years ??When triglycerides are >200 mg/dL, Non-HDL cholesterol is a secondary target of ? therapy with treatment goals that are 30 mg/dL greater than the LDL cholesterol target. ? Literature References: 1. Expert Panel on Integrated Guidelines for Cardiovascular Health and Risk Reduction in Children and Adolescents. Pediatrics 2011;128:S213 2. NCEP Expert Panel. Circulation 2004;110:227 Current Interpretive Data was last revised on 2018. Chol/HDL ratio 3 [facility] Blood 06/10/2024 11:5 1 AM CDT 06/10/2024 11:57 AM CDT Sol Flores NOTE TELLER LAB BLOOD ORDERABLES Final Result [facility] [address] [facility] Department [place] [address] from Last 3 Months or Most Recently Relevant to Health Maintenance Insurance [employer] Advance Directives For more information, please contact: [phone] * Full Code (Latest Code Status on File) Date Activated Date Inactivated Comments 06/15/2024 3:04 PM 07/01/2024 10:16 PM Care Teams Garage Worker Relationship Specialty Start Date End Date Torres Pedroza MD PCP - General Internal Medicine 04/06/24 Akiko Hastings MD [address] [place] [address] Referring Physician Cardiology 05/20/24 Kevin Hancock MD [id number] [place] [address] Thoracic Surgery 07/01/24 Babatunde Baron MD [address] [address] Consulting Physician General Surgery 07/01/24 Carlos Harding MD [address] [address] Consulting Physician Vascular Surgery 07/01/24
--- OUTSIDE RECORDS SUMMARY | 2024-10-22 05:56 | XMS_ITS | Referral Summary ---
Author Organization [facility] [address] [place] [address] Care Team Providers Care Endless Track Vehicle Supervisor Name Role Phone Torres Pedroza MD Primary Care Provider [phone] Akiko Hastings MD Unavailable [phone] Kevin Hancock MD Unavailable [phone] Babatunde Baron MD Unavailable [phone] Carlos Harding MD Unavailable Encounters Date Type Department Care Team Description 09/30/2024 9:30 AM SOUND TRUCK OPERATOR Office Visit [facility] Medical Office Building [address], [address] [place] [address] Kevin Hancock MD Surgical wound dehiscence, subsequent encounter (Primary Dx) 08/30/2024 11:00 AM SOUND TRUCK OPERATOR Office Visit [facility] Medical Office Building [address], [address] [place] [phone] Kevin Hancock MD Encounter for post surgical wound check (Primary Dx) 08/19/2024 3:00 PM SOUND TRUCK OPERATOR - 08/19/2024 11:59 PM SOUND TRUCK OPERATOR Hospital Encounter [address] [address] Acute ischemic enteritis (CMS/HCC) (HCC) (Primary Dx) Discharge Disposition: Discharge to home or self care 08/12/2024 11:05 AM SOUND TRUCK OPERATOR - 08/12/2024 11:59 PM SOUND TRUCK OPERATOR Hospital Encounter [facility] Cardiac Testing [address] [place] [address] S/P CABG (coronary artery bypass graft) Discharge Disposition: Discharge to home or self care 08/12/2024 9:35 AM SOUND TRUCK OPERATOR - 08/12/2024 11:59 PM SOUND TRUCK OPERATOR Hospital Encounter [facility] Diagnostic Imaging [address] [place] [address] S/P CABG (coronary artery bypass graft) Discharge Disposition: Discharge to home or self care 08/12/2024 10:00 AM SOUND TRUCK OPERATOR Office Visit [facility] [address] [place] [address] Medical Office Building [address], [address] [place] [address] Kevin Hancock MD Sternal wound dehiscence, initial encounter (Primary Dx); Hypomagnesemia 08/11/2024 Telephone [facility] [address] [place] [address] Medicine 8th Floor [address] Room [address] [place] [phone] Jenna aMrtinez RMA 08/10/2024 Orders Only [facility] Infusion Center [address] [place] [address] Catherine Lomas, RN 07/26/2024 Telephone [facility] [address] [place] [address] 8th Floor [address] Room [address] [place] [phone] Kevin Hancock MD 07/23/2024 Telephone [facility] [address] [place] [address] 8th Floor [address] Room [address] [place] [phone] Jenna Martinez RMA 07/23/2024 Telephone [facility] [address] [place] [address] Medical Office Building [address], [address] [place] [address] Sol Flores, SALES REPRESENTATIVE CONSULTANT Follow-up from Last 3 Months Allergies Active Allergy Reactions Criticality Noted Date [...] Noted Date Diagnosed Date Acute ischemic enteritis ([facility]) 08/10/2024 MILENA (acute kidney injury) 06/28/2024 Superior mesenteric artery stenosis ([facility]) Ischemic colitis 06/23/2024 Atrial fibrillation with RVR ([facility]) S/P CABG (coronary artery bypass graft) 06/15/20 24 Coronary artery disease involving [place] heart 0 06/04/2024 Hypertension 05/20/2024 Overview (05/20/2024): History of hypertension treated with medication Hyperlipidemia 05/20/2024 Overview (05/20/2024): History of hyperlipidemia - treated. Diabetes 05/20/2024 CAD, multiple vessel 05/20/2024 Social History Tobacco Use Types Packs/Day Years Used Date Smoking Tobacco: Never Smokeless Tobacco: Never Tobacco Cessation:Counseling Given: Not Answered [facility] [employer] Answer Date Recorded In the past 12 months has e [employer], gas, oil, or water [facility] [employer] threatened to shut off services in your [...] often do you attend chur ch or amish services? Never 06/16/2024 Do you belong to any clubs o r organizations such as christian groups, unions, fraternal or athletic groups, or [...] any time in the past 12 m [facility], were you homeless or living in a alf (including now)? No 06/16/2024 Personal Safety Answer [...] on file Sexual Orientation Not on file Last Filed Vital Signs Vital Sign Reading Time Taken Comments Blood Pressure 122/73 09/30/2024 9:23 AM SOUND TRUCK OPERATOR Pulse 81 09/30/2024 9:23 AM SOUND TRUCK OPERATOR Temperature 36.7 ??C (98.1 ??F) 09/30/2024 9:23 AM CS T Respiratory Rate 20 07/01/2024 11:00 AM CDT Oxygen Saturation 100% 09/30/2024 9:23 AM SOUND TRUCK OPERATOR Inhaled Oxygen Concentration - - Weight 67.6 kg (149 lb) 09/30/2024 9:23 AM SOUND TRUCK OPERATOR Height 165.1 cm (5' 5 ) 09/30/2024 9:23 AM SOUND TRUCK OPERATOR Body Mass Index 24.79 09/30/2024 9:23 AM SOUND TRUCK OPERATOR Plan of Treatment Not on file Medical Devices Implanted Type Area Landscape Foreman Device Identifier Shelf Expiration Date Model / Serial / Lot Yesware Vasquez Distal Marker Radiology Stainless Steel Sterile [facility] - [id number] Implanted:Qty : 1 on 06/15/2024 by Kevin Hancock MD at [facility] Graft N/A: Heart Yesware 05/29/2026 AM-D / / [id number] Medtronic Inc Visi-Pro Od6 Mm L37 Mm L80 Cm Balloon Expandable; Solid Radial St [id number] 80 - [id number] Implanted:Qty : 1 on 06/22/2024 by Babatunde Baron MD at [facility] Stent N/A: Superior Mesenteric Artery Medtronic Inc [id number] 10/10/2025 [id number] / / [id number] Stent Heart Montagect Implanted:Qty : 1 on 06/15/2024 by Kevin Hancock MD at [facility] N/A: Sternum [employer] 04/28/2027 OS-MON-1 401CT / [id number] / Description:NOT APPROVED BY [facility] DO NOT CHARGE [employer] Device Closure Fibertape Sternal [place]clage Cutting Needle Ar-7288 - [id number] Implanted:Qty : 3 on 06/15/2024 by Kevin Hancock MD at [facility] [employer] [id number] 03/28/2029 [id number] / / [id number] Procedures Procedure Name Priority Date/Time Associated Diagnosis Comments ECG 12-LEAD Routine 08/12/2024 11:16 AM SOUND TRUCK OPERATOR S/P CABG (coronary artery bypass graft) XR CHEST PA LATERAL 2 VIEWS Schedule Routine, Read Routine (OP Routine) 08/12/2024 10:13 AM SOUND TRUCK OPERATOR S/P CABG (coronary artery bypass graft) EGFR Routine 06/30/2024 5:18 AM CDT HEMOGLOBIN A1C Routine 06/10/2024 11:51 AM CDT Coronary artery disease involving [place] heart with other form of angina pectoris, unspecified vessel or lesion type (HCC) Type 2 diabetes mellitus without complication, unspecified whether halfway insulin use (HCC) Pre-op exam LIPID PANEL Routine 06/10/2024 11:51 AM CDT Coronary artery disease involving [place] heart with other form of angina pectoris, unspecified vessel or lesion type (HCC) Pre-op exam from Last 3 Months or Most Recently Relevant to Health Maintenance Results * ECG 12 lead (08/12/2024 11:16 AM SOUND TRUCK OPERATOR) Pathologist [facility] Ventricular Rate EKG/Min 94 BPM [facility] Atrial Rate 94 BPM [facility] SD-Interval (MSEC) 146 ms [facility] QRS-Interval (MSEC) 86 ms [facility] QT-Interval (MSEC) 320 ms [facility] QTc 400 ms [facility] P [place] 58 degrees [facility] R [place] 63 degrees [facility] T [place] 158 degrees [facility] Diagnosis Normal sinus rhythm Minimal voltage criteria for LVH, may be normal variant ( [place] product ) ST & T wave abnormality, consider lateral ischemia Abnormal ECG Confirmed by TERESA VERMA M.D. ([id number]) on 08/12/2024 4:12:25 PM [facility] 08/12/2024 11:1 6 AM SOUND TRUCK OPERATOR 08/12/2024 4:12 PM SOUND TRUCK OPERATOR us Sol Flores NP ECG ORDERABLES Final Resu lt [facility] * X-ray chest 2 views (08/12/2024 10:13 AM SOUND TRUCK OPERATOR) Anatomical Region Laterality Modality Body, Chest N/A Computed Radiogr aphy 08/17/2024 8:58 AM SOUND TRUCK OPERATOR Narrative 08/17/2024 8:59 AM SOUND TRUCK OPERATOR EXAM DESCRIPTION: XR CHEST PA LATERAL 2 [...] D: ??08/17/2024 8:59 AM T: Report ID: [id number] Reading Location: ??[id number] Procedure Note Andrew Canela MD - 08/17/2024 [...] Andrew Canela M.D. SN T: Report ID: [id number] Reading Location: [id number] us Sol Flores NP IMG XR PROCEDURES Final Re sult * eGFR (06/30/2024 5:18 AM CDT) eGFR 70 >=60 mL/min/1. 73 m2 Comment: [...] LAB BLOOD ORDERABLES Final Resu lt [facility] [address] [facility] [place] [address] * (ABNORMAL) Hemoglobin A1c (06/10/2024 [...] children were not included. ?? (Diabetes Care 31:2212-9717, 2008). ??The eAG is not equivalent to a fasting glucose. Blood 06/10/2024 11:5 1 AM CDT 06/10/2024 11:57 AM CDT Sol Flores SALES REPRESENTATIVE CONSULTANT LAB BLOOD ORDERABLES Final Result [facility] [address] [facility] [place] [address] * (ABNORMAL) Lipid panel (06/10/2024 11:51 AM [...] on 2018. Triglycerides 259(H) <=149 mg/dL [facility] Comment: Interpretive Data Ages < [...] mg/dL ??High: ?>160 mg/dL Calculated using the Sánchez LDL-C estimating equation. This equation was implemented on 2024. Prior to this date LDL-C was estimated using the Friedewald equation. Literature References: 1. Expert Panel on Integrated Guidelines for Cardiovascular Health and Risk Reduction in Children and Adolescents. Pediatrics 2011;128:S213 2. NCEP Expert Panel. Circulation 2004;110:227 3. Gonzalo M et al. BRANDI Cardiol. 2020 January 27;5(5):540-548. doi: 10.1001/jamacardio.2020.0013 Current Interpretive Data was last revised on 2024. Non-HDL Cholesterol 108 mg/dL [facility] Comment: Interpretive Data Ages [...] revised on 2018. Chol/HDL ratio 3 [facility] Blood 06/10/2024 11:5 1 AM CDT 06/10/2024 11:57 AM CDT Sol Flores NP LAB BLOOD ORDERABLES Final Result [facility] [address] [facility] [place] [address] from Last 3 Months or Most Recently Relevant to Health Maintenance Insurance [employer] MEDICARE [facility] Address: [address] [address] [place] [address] [employer] MEDICARE [facility] Address: [address] [address] [place] [address] Advance Directives For more information, please contact: [phone] * Full Code (Latest Code Status on File) Date Activated Date Inactivated Comments 06/15/2024 3:04 PM 07/01/2024 10:16 PM Care Teams Endless Track Vehicle Supervisor Relationship Specialty Start Date End Date Torres Pedroza MD PCP - General Internal Medicine 04/06/24 Akiko [place] MD [address] [place] [address] Referring Physician Cardiology 05/20/24 Kevin Hancock MD [id number] [place] [address] Thoracic Surgery 07/01/24 Babatunde Baron MD [address] [place] [address] Consulting Physician General Surgery 07/01/24 Carlos Harding MD [address] [address] Consulting Physician Vascular Surgery 07/01/24
--- OUTSIDE RECORDS SUMMARY | 2024-10-22 05:56 | XMS_ITS | Encounter Summary ---
Author Organization [facility] Address [address] [place] [address]. [place] [address] [place] [address] Care Team Providers Care Ecclesiastical Worker Name Role Phone José Emmanuel MD Primary Care Provider Kai Bryson MD Unavailable Unavailable Torres Pedroza MD Primary Care Provider [phone] Akiko Hastings MD Unavailable [phone] Encounter Details Date Type Department Care Team (Late st Contact Info) Description 03/18/2016 Abstract [facility] [address] [place] [phone] Case Lawson MD Social History Tobacco Use Types Packs/Day Years Used Date Smoking Tobacco: Never Comments Unknown Sex and Gender Information Value Date Recorded Sex Assigned at Not on file Legal Sex Female 1:34 AM CDT Gender Identity Not on file Sexual Orientation Not on file documented as of this encounter Plan of Treatment Upcoming Encounters Date Type Department Care Team (Late Contact Info) Description 10/27/2024 8:30 AM SHIELD INSTALLER Office Visit [facility] [place] [phone] Akiko [place] MD [address] [place] [address] 12/15/2024 3:30 PM CDT Office Visit [facility] [place] [phone] Akiko [place] MD [address] [place], [place] [phone] documented as of this encounter Visit Diagnoses Not on filedocumented in this encounter Additional Health Concerns Infection Onset Date Last Indicated Resolved Time COVID-19 Rule Out 04/06/2022 04/06/2022 04/06/2022 7:09 AM CDT COVID-19 Confirmed Comment:04/04/22 per H&P (SB) 04/06/2022 04/06/2022 05/01/2022 1 2:32 AM CDT documented as of this encounter Care Teams Ecclesiastical Worker Relationship Specialty Start Date End Date José Emmanuel MD PCP - General SURGERY 09/05/16 12/13/18 Torres Pedroza MD [address] [place] [phone] PCP - General INTERNAL MEDICINE 12/14/18 Kai Herndon MD CARDIOVASCULAR DISEASE 09/05/16 10/07/19 Akiko Hastings MD [address] [place] [address] CARDIOVASCULAR DISEASE 10/08/19 documented as of this encounter
--- OUTSIDE RECORDS SUMMARY | 2024-10-22 05:56 | XMS_ITS | Clinical Summary ---
Author Organization [facility] Address [address] [place] [address]. [place] [address] [place] [address] Care Team Providers Care Mill Feeder Name Role Phone Torres Pedroza MD Primary Care Provider [phone] Akiko Hatsings MD Unavailable [phone] Allergies Active Allergy Reactions Criticality Noted Date Comments Cephalexin Hives 01/02/2022 Medications aspirin 81 MG chewable tabletIndication s:Anticoagulant Therapy Chew 1 tablet (81 mg total) by mouth daily. Indications: Anticoagulant Therapy 01/13/20 14 Active HUMULIN 70/30 (70-30) 100 UNIT/ML injectionIndicat ions:Diabetes Mellitus Inject 70 Units into the skin 2 (two) times daily before meals. Indications: Diabetes 70 units in the morning and 70 units at night 03/27/20 20 Active METOPROLOL SUCCINATE ER 100 MG 24 hr tablet [The details of the medication are not available because there are pending changes by a home health clinician.] 90 tablet 3 05/28/20 21 Active Additional Information Patient taking differently: 150 mg Oral Daily, Reported on 01/06/2023 [address]CERIN 0.[address] TABLET UNDER THE TONGUE EVERY 5 MINUTES NEEDED FOR CHEST PAIN. 25 tablet 2 11/19/19 22 Active BD INSULIN SYRINGE U/F 31G X /16 1 ML Misc USE TWICE A DAY TO INJECT INSULIN DIRECTED 11/25/19 22 Active losartan 100 MG tabletIndication s:Hypertension Take 1 tablet (100 mg total) by mouth nightly at bedtime. Indications: High Blood Pressure Disorder at bedtime. 02/29/20 22 Active [place]berlake-3 Fatty Acids (EQL FISH OIL) 1000 MG CapIndications:S upplement Take 1,000 mg by mouth daily. Indications: Supplement 04/18/20 Active Multiple Vitamins-Mineral s (HM MULTIVITAMIN ADULT GUMMY OR)Indications:S upplement Take 1 each by mouth daily. Indications: Supplement 04/18/20 22 Active Senna (SENOKOT) 8.6 MG tabletIndication s:Constipation Take 1 tablet (8.6 mg total) by mouth daily as needed. Indications: Constipation 04/18/20 22 Active sucralfate (CARAFATE) 1 GM/10ML suspension SHAKE WELL AND TAKE 10 MLS BY MOUTH 4 TIMES A DAY BEFORE MEALS AND AT BEDTIME 01/01/20 23 Active pantoprazole EC (PROTONIX) 40 MG tablet Take 1 tablet (40 mg total) by mouth 2 (two) times daily. 12/24/19 23 Active pioglitazone (ACTOS) 15 MG tablet Take 1 tablet (15 mg total) by mouth daily. 07/26/20 23 Active rosuvastatin (CRESTOR) 20 MG tablet Take 1 tablet (20 mg total) by mouth daily. DIRECTED 07/20/20 23 Active isosorbide mononitrate ER (IMDUR) 30 MG 24 hr tablet Take 1 tablet (30 mg total) by mouth daily. 90 tablet 3 05/05/20 24 Active NIFEdipine ER (ADALAT CC) 60 MG 24 hr tablet take 1 tablet by mouth every day 90 tablet 1 06/28/20 24 Active Active Problems Problem Noted Date Diagnosed Date Pneumonia due to COVID-19 virus 04/06/2022 Acute respiratory distress s yndrome (ARDS) due to COVID-19 virus ([facility]) 04/06/2022 Chest pain of uncertain etiology 05/15/2018 Coronary artery disease invo lving [place] coronary artery of [place] heart without angina pectoris 09/03/2016 S/P angioplasty with stent 09/03/2016 Hypertension Overview (09/03/2016): History of hypertension treated with medication Hyperlipidemia Overview (09/03/2016): History of hyperlipidemia - treated. Diabetes ([facility]) Family History Medical History Relation Comments CABG Father 5 vessel Coronary artery disease Other Family h istory is positive for premature coronary heart disease Relation Status Comments Father (Age 74) of 5 vessel CABG at age 74 Mother (Age 85) Other Social History Tobacco Use Types Packs/Day Years Used Date Smoking Tobacco: Never Smokeless Tobacco: Never Tobacco Cessation:Counseling Given: Not Answered Alcohol Use Standard Drinks/Week Comments No 0 (1 standard drink = 0.6 oz pur e alcohol) Comments Unknown Sex and Gender Information Value Date Recorded Sex Assigned at Not on file Legal Sex Female 1:34 AM CDT Gender Identity Not on file Sexual Orientation Not on file Occupation Industry Job Start Date Job End Date 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 Not on f ile Not on file Not on file Last Filed Vital Signs Vital Sign Reading Time Taken Comments Blood Pressure 152/56 05/05/2024 3:17 PM CDT Pulse 91 05/05/2024 3:16 PM CDT Temperature 36.8 ??C (98.2 ??F) 05/16/2022 1:36 PM CD T Respiratory Rate 18 05/05/2024 3:16 PM CDT Oxygen Saturation 99% 05/05/2024 3:16 PM CDT Inhaled Oxygen Concentration - - Weight 82.2 kg (181 lb 4.8 oz) 05/05/2024 3:16 P M CDT Height 165.1 cm (5' 5 ) 05/05/2024 3:16 PM CDT Body Mass Index 30.17 05/05/2024 3:16 PM CDT Plan of Treatment Upcoming Encounters Date Type Department Care Team (Late st Contact Info) Description 10/27/2024 8:30 AM PELT SALTER Office Visit [facility] [place] [address] [place] [address] [phone] Akiko [place] MD [address] [place] [address] 12/15/2024 3:30 PM CDT Office Visit [facility] [place] [address] Akiko Hastings MD [address] [place] [address] Health Maintenance Due Date Last Done Comments Colorectal Cancer Screening Colonoscopy (10 Years) 1953 Kidney Health Evaluation 1955 Pneumococcal Vaccine: 65+ Years (1 of 2 - PCV) 1959 PHQ-2 (Physician Belkofski) 1965 Diabetes: Retinopathy Eye Exam 1971 Hepatitis C 1971 DTaP, Tdap and Td Vaccines ( 1 - Tdap) 1972 Mammogram Screening 1993 RSV Immunization or 60+ Years (1 - Risk 60-74 years 1-dose series) 2013 Annual Medicare Wellness Visit 2018 Dexa Scan (General) 2018 Zoster Vaccines (2 of 2) 11/29/2019 10/04/2019 Hemoglobin A1C 10/08/2022 04/07/2022 COVID-19 Vaccine (1 - 2023-2 5 season) 2024 Influenza Adult (#1) 2024 06/16/2019 Lipid Panel 04/06/2025 04/06/2024, 03/11/2012 Meningococcal B Vaccine Aged Out No l onger eligible based on patient's age to complete this topic Meningococcal Vaccine Aged Out No miquel lucretia eligible based on patient's age to complete this topic RSV Immunizations Under 20 Months Aged Out No longer eligible b ased on patient's age to complete this topic Procedures Procedure Name Priority Date/Time Associated Diagnosis Comments LIPID PANEL Routine 04/06/2024 HEMOGLOBIN, GLYCOSYLATED Routine 04/07/2022 4:11 AM CDT from Last 3 Months or Most Recently Relevant to Health Maintenance Results * LIPID PANEL (04/06/2024) CHOLESTEROL 167 TRIGLYCERIDES 218 HDL 47 DIRECT LDL 74 Narrative Resulting Agency Comment [facility], [place], [place] Marcelo To MD LABORATORY Final Result * (ABNORMAL) HEMOGLOBIN, GLYCOSYLATED (04/07/2022 4:11 AM CDT) HGB A1C 8.2(H) <5.7 % 04/07/2022 4:58 AM CDT [facility] ESTIMATED AVG GLUCOSE 189(H) 74 - 114 MG/DL 04/07/2022 4:58 AM CDT [facility] 04/07/2022 4:11 AM CDT Jerome Mckeon MD LABORATORY Final Result [facility] [address] [place] [address], [place] [phone] from Last 3 Months or Most Recently Relevant to Health Maintenance Insurance MEDICAID MEDICAID Advance Directives * Full Code (Latest Code Status on File) Date Activated Date Inactivated Comments 04/18/2022 4:27 PM * Full Code Date Activated Date Inactivated Comments 04/06/2022 5:43 AM 04/16/2022 5:39 PM Care Teams Mill Feeder Relationship Specialty Start Date End Date Torres Pedroza MD [address] [place] [phone] PCP - General INTERNAL MEDICINE 12/14/18 Akiko Hastings MD [address] [place] [address] CARDIOVASCULAR DISEASE 10/08/19
--- OUTSIDE RECORDS SUMMARY | 2024-10-22 05:56 | XMS_ITS | CONTINUITY OF CARE DOCUMENT ---
Author Name nievesleonora cira Address Unknown Organization [facility] Address [address] [place] [address] [address] [place] [address] Phone [phone] Care Team Providers Care Truss Assembler Name Role Phone KEITH AGUERO, JAZMIN Unavailable Unavailable ROQUE AGUERO, JEFFERSON Longo Unavailable INSURANCE PROVIDERS Payer name Policy type / Coverage type Lagrange red libertarian ID [facility] DISABILITY Commercial insuranc e [employer] [id number]
[2024-10-22 07:16] LABS: Fractional Inspired Oxygen 21 %; HCO3 VBG 16.3 mEq/l (24.0-30.0); PCO2 VBG 31.5 mmHg (42.0-48.0); PO2 VBG 79.2 mmHg (35.0-45.0); pH VBG 7.332 (7.300-7.400)
[2024-10-22 07:18] LABS: Device ROOM AIR
[2024-10-22] MEDS: ALBUTEROL SULFATE NEB 2.5 MG/3 ML INH 10 MG INHALATION (07:23)
[2024-10-22 07:38] LABS: Iron 28 ug/dL (37-170)
[2024-10-22 07:47] LABS: Percent Iron Saturation 10 % (20-50)
[2024-10-22 08:30] LABS: Folic Acid 11.1 ng/mL (2.76->20)
--- NOTE | 2024-10-22 09:29 | P.HP_ITS ---
H&P: HPI History of Present Illness Date/Time: 10/22/24 09:29 Chief Complaint: Two swelling Narrative: A 69-year-old female who presents to the ER from nursing facility with concerns for infected 2nd toe right foot. She noticed redness and sore spot in the beginning of this month. She went to see primary provider with been watching the wound. Continued worsening she was sent to the ER for evaluation. She d enies any fever chills leg swelling calf pain. She does have history of diabetes. He had recent complicated course after CABG in May followed by bowel ischemia leading to i.e. ostomy placement. She has been in rehab since then. Patient is not on any antibiotics currently. On ED evaluation her vitals were stable she was afebrile. EKG showed normal sinus rhythm with no signs of acute ischemia. Laboratory evaluation revealed leukocytosis of 15.4 hemoglobin of 8 which is around baseline sodium of 126 potassium 6.3 bicarb 17 BUN 69 creatinine 1.7 which is higher than her baseline creatinine level. CRP is 3.2. Urinalysis revealed 51-100 WBC 3 +leukocyte esterase. Patient received calcium gluconate IV insulin dextrose Kayexalate and albuterol for hyperkalemia and was started on IV fluids. X-ray of the right foot was obtained which showed significant soft tissue swelling with bony erosions the peripheral most portion of the distal phalanx of the 2nd toe consistent with osteomyelitis. Patient has been started on IV vancomycin and ciprofloxacin for osteomyelitis. Blood cultures were obtained. Review of Systems Review of Systems: - CONSTITUTIONAL: Denies weight loss, fe gemma and chills. - HEENT: Denies changes in vision and he aring - RESPIRATORY: Denies SOB and cough. - CV: Denies palpitations and CP. - GI: Denies abdominal pain, nausea, vom iting and diarrhea. - : Denies dysuria and urinary frequen cy. - MSK: Denies myalgia and joint pain. S ee HPI - SKIN: Denies rash and pruritus. - NEUROLOGICAL: Denies headache and sync ope. - PSYCHIATRIC: Denies recent changes in mood. Denies anxiety and depression. PMFSH Past Medical History Medical History Esophagitis with gastritis Peptic ulcer of stomach Insulin dependent type 2 diabetes mellitus Pneumonia due to COVID-19 virus (04/05/22) Coronary artery disease (11/04/17) Non-STEMI (non-ST elevated myocardial infarction) (04/06/22) Hypertension Hyperlipidemia Surgical History Surgical History History of partial colectomy History of four vessel coronary artery bypass graft (05/2024) [facility] History of coronary artery stent placement History of appendectomy Family History Family History (Updated 10/21/24 @ 22:56 by Meenu Pereyra RN) Father CHF (congestive heart failure) Mother Hypertension Social History Social History Social History: Surrogate medical decision maker: Babatunde Prakash, son ([phone]). Code status: Full code. Smoking status: Never smoker Alcohol intake: never Alcohol use details: rare alcohol use only in small amounts Substance use: never Substance use type: does not use Do You Feel Safe in your Home?: Yes Lack of Transportation: No Lack of Food: Never True Current Housing: I Have Housing Concerned About Future Housing: No Difficulty Paying Gas/Electric Bills: No Difficulty Paying for Meds: No Currently Unemployed: No Education: Decline to Answer Difficulty w/ Childcare or Family Care: No Living arrangements: with family Additional living arrangements comments: She lives with her brother and her beagle Vick. She has 1 son. 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 Spiritual care concerns: No Meds Home Medications and Allergies Home Medications ?Medication ?Instructions ?Recorded ?Confirmed ?Type losartan 100 mg tablet 100 mg PO DAILY 04/23/22 10/22/24 History metoprolol succinate 100 mg 50 mg PO BID 04/23/22 10/22/24 History tablet,extended release 24 hr aspirin 81 mg capsule 81 mg PO DAILY 08/08/22 10/22/24 History insulin human U-100 NPH-regulr 50 unit subcut BID 08/08/22 10/22/24 History 70-30 mix 100 unit/mL subcutaneous susp (Humulin 70/30 U-100 Insulin) rosuvastatin 20 mg tablet 20 mg PO DAILY 04/06/24 10/22/24 History sucralfate 100 mg/mL oral 10 ml PO ACHS 04/06/24 10/22/24 History suspension acetaminophen 325 mg tablet 650 mg PO Q8H PRN Pain (Scale 07/09/24 10/22/24 History Score 1-3) amiodarone 200 mg tablet 200 mg PO BID 07/09/24 10/22/24 History clopidogrel 75 mg tablet 75 mg PO DAILY 07/09/24 10/22/24 History furosemide 40 mg tablet 40 mg PO DAILY 07/09/24 10/22/24 History pantoprazole 40 mg tablet,delayed 20 mg PO DAILY 07/09/24 10/22/24 History release trazodone 50 mg tablet 50 mg PO HS 07/09/24 10/22/24 History calcium polycarbophil 625 mg 625 mg PO QAM #30 tabs 07/20/24 10/22/24 Rx tablet (Fiber (calcium polycarbophil)) dicyclomine 10 mg capsule 10 mg PO QID #90 caps 07/20/24 10/22/24 Rx magnesium oxide 400 mg PO BID 10/22/24 10/22/24 History ondansetron 4 mg disintegrating 4 mg PO Q6H PRN nausea and vomiting 10/22/24 10/22/24 History tablet sertraline 25 mg tablet 25 mg PO DAILY 10/22/24 10/22/24 History Allergies Allergy/AdvReac Type Severity Reaction Status Date / Time cephalexin (Keflex) Allergy Intermediate Hives Verified 10/21/24 22:37 Vital Signs Vital Signs - 24 hr 10/21/24 14:54 10/21/24 17:50 10/21/24 18:23 Temperature 97.5 F L Pulse Rate 78 80 Respiratory Rate 16 18 Blood Pressure 105/51 L 111/58 L 146/67 H Pulse Oximetry 100 100 100 Oxygen Delivery Room Air 10/21/24 18:49 10/21/24 19:01 10/21/24 19:40 Temperature Pulse Rate 81 Respiratory Rate 20 Blood Pressure 131/53 L 133/44 L Pulse Oximetry 100 100 Oxygen Delivery 10/21/24 20:10 10/21/24 20:11 10/21/24 20:16 Temperature Pulse Rate 81 80 82 Respiratory Rate 14 14 17 Blood Pressure 136/45 L 136/45 L 111/45 L Pulse Oximetry 100 100 100 Oxygen Delivery 10/21/24 20:21 10/21/24 20:46 10/21/24 21:31 Temperature Pulse Rate 88 87 88 Respiratory Rate 20 13 16 Blood Pressure 139/46 L 122/47 L Pulse Oximetry 100 100 Oxygen Delivery 10/21/24 22:20 10/21/24 22:32 10/21/24 23:50 Temperature 97.5 F L 97.5 F L Pulse Rate 90 83 Respiratory Rate 18 18 Blood Pressure 123/42 L 124/46 L Pulse Oximetry 100 100 Oxygen Delivery Room Air 10/22/24 00:00 10/22/24 00:00 10/22/24 02:00 Temperature Pulse Rate 83 86 Respiratory Rate Blood Pressure Pulse Oximetry Oxygen Delivery Room Air 10/22/24 04:00 10/22/24 04:00 10/22/24 04:48 Temperature 97.6 F Pulse Rate 83 84 Respiratory Rate 18 Blood Pressure 138/50 L Pulse Oximetry 100 Oxygen Delivery Room Air 10/22/24 06:00 10/22/24 07:25 10/22/24 07:26 Temperature Pulse Rate 90 85 Respiratory Rate 14 Blood Pressure Pulse Oximetry 98 Oxygen Delivery Room Air 10/22/24 07:57 Temperature 98.5 F Pulse Rate 96 Respiratory Rate 16 Blood Pressure 133/39 L Pulse Oximetry 100 Oxygen Delivery Exam Narrative: General: Alert, awake, afebrile, in no acute distress. HEENT: PERRL, no rhinorrhea, no post nasal drip, oropharynx clear. Neck: Trachea midline, no JVD, no lymphadenopathy. Cardiovascular: Regular rate and rhythm, no murmurs, rubs or gallops, no peripheral edema. Respiratory: Clear to auscultation bilaterally, no tachypnea, no wheezing, no rhonchi, no rubs, no respiratory distress. Abdomen: Soft, nontender, nondistended, no rebound, no guarding, no peritoneal signs. Musculoskeletal: Right foot 2nd toe cellulitis with purulent drainage is from di stal phalanx Skin: No rashes or petechia, no signs of infection. Psychiatric: Alert and oriented, normal behavior and judgment for situation. Neurological: Alert and oriented to person, place, and time. Follows all commands. No focal deficits, speech is clear and fluent. H&P: Results Labs Labs: Short CBC 10/21/24 10/22/24 Range/Units 17:46 04:23 WBC 15.4 H 12.7 H (4.5-10.0) K/mm3 Hgb 8.3 L 7.4 L (12.0-15.0) g/dL Hct 26.0 L 22.9 L (37.0-47.0) % Plt Count 385 H 314 (150-375) k/mm3 BMP 10/21/24 10/21/24 10/22/24 17:46 21:41 04:23 Sodium 126 L 126 L 133 L Potassium 6.3 H* 5.0 5.9 H Chloride 96 L 100 106 Carbon Dioxide 17 L 15 L 18 L BUN 69 H D 65 H 56 H Creatinine 1.74 H 1.47 H 1.33 H Glucose 134 H 158 H 116 H Calcium 9.6 8.9 9.1 Cardiac Enzymes 10/21/24 Range/Units 17:45 Troponin I 0.012 (0.000-0.034) ng/mL Liver Function 10/21/24 10/22/24 Range/Units 17:46 04:23 Total Bilirubin 0.6 0.4 (0.2-1.3) mg/dL AST 19 18 (14-36) U/L ALT 19 15 (6-35) U/L Alkaline Phosphatase 108 88 (38-126) U/L Albumin 3.8 3.0 L (3.5-5.1) g/dL Urine 10/21/24 Range/Units 18:46 Urine Color Yellow (Yellow) Urine Appearance Cloudy H (Clear) Urine pH 5.0 (5.0-9.0) Ur Specific [place] 1.013 (1.001-1.035) Urine Protein Negative (Negative) mg/dL Urine Glucose (UA) Negative (Negative) mg/dL Assessment and Plan Assessment and plan (1) Essential hypertension: Code(s): I10 - Essential (primary) hypertension Status: Acute (2) Coronary artery disease: Onset Date: 11/04/17 Code(s): I25.10 - Atherosclerotic heart disease of [place] coronary artery without angina pectoris Status: Acute (3) Hyperlipidemia: Code(s): E78.5 - Hyperlipidemia, unspecified Status: Acute (4) Type 2 diabetes mellitus with hyperglycemia, with long-term current use of insulin: Code(s): E11.65 - Type 2 diabetes mellitus with hyperglycemia; 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 She noticed redness and sore spot in the beginning of this month. She went to see primary provider with been watching the wound. Continued worsening she was sent to the ER for evaluation. She denies any fever chills leg swelling calf pain. She does have history of diabetes. He had recent complicated course after CABG in May followed by bowel ischemia leading to i.e. ostomy placement. She has been in rehab since then. Patient is not on any antibiotics currently. On ED evaluation her vitals were stable she was afebrile. EKG showed normal sinus rhythm with no signs of acute ischemia. Laboratory evaluation revealed leukocytosis of 15.4 hemoglobin of 8 which is around baseline sodium of 126 potassium 6.3 bicarb 17 BUN 69 creatinine 1.7 which is higher than her baseline creatinine level. CRP is 3.2. Urinalysis revealed 51-100 WBC 3 +leukocyte esterase. Patient received calcium gluconate IV insulin dextrose Kayexalate and albuterol for hyperkalemia and was started on IV fluids. X-ray of the right foot was obtained which showed significant soft tissue swelling with bony erosions the peripheral most portion of the distal phalanx of the 2nd toe consistent with osteomyelitis. Patient has been started on IV vancomycin and c iprofloxacin for osteomyelitis. Blood cultures were obtained. General surgery has been consulted. Purulent discharge comes from the toe infection site on evaluation. She will likely need debridement and/or toe amputation further treatment. Will continue IV antibiotics as ordered. Culture was also obtained this a.m.. Diabetic toe infection with osteomyelitis of phalanx MILENA creatinine 1.7. Baseline creatinine 0.9 IV fluid to continue will hold Lasix Chronic anemia Hyponatremia UTI Hyperkalemia Coronary artery disease status post CABG May of 2024 Hypertension Hyperlipidemia Status post partial colectomy and ostomy placement June 2024. Peptic ulcer disease Type 2 diabetes on insulin DVTprophylaxis SCDs Code status full code Hospitalist MIPS Advance Care Plan I have confirmed that the patient's Advanced Care Plan is present, code status is documented, or surrogate decision maker is listed in patient medical record.: Yes Medication Reconciliation I have utilized all available resources to obtain, update and review the patients current medications (includes all prescriptions, OTC, herbals, cannabis, and nutritional supplements).: Yes
[2024-10-22] MEDS: AMIODARONE HCL 200 MG TABLET PO ×2 (11:08→17:42)
[2024-10-22] MEDS: PANTOPRAZOLE 40 MG TABLET PO (11:09)
[2024-10-22] MEDS: MAGNESIUM OXIDE 400 MG TABLET PO ×2 (11:09→17:42)
[2024-10-22] MEDS: DICYCLOMINE HCL 10 MG CAPSULE PO ×3 (11:09→17:42)
[2024-10-22] MEDS: ROSUVASTATIN 20 MG TABLET PO (11:09)
[2024-10-22] MEDS: METOPROLOL SUCCINATE EXT REL 50 MG TABCR PO ×2 (11:09→21:13)
[2024-10-22] MEDS: SERTRALINE HCL 25 MG TABLET PO (11:09)
--- NOTE | 2024-10-22 11:27 | PM.CNGS ---
Assessment and Plan Assessment and plan (1) Osteomyelitis: Qualifiers: Osteomyelitis type: chronic, with draining sinus Osteomyelitis location: foot Laterality: right Qualified Code(s): M86.471 - Chronic osteomyelitis with draining sinus, right ankle and foot Code(s): M86.9 - Osteomyelitis, unspecified Status: Acute Assessment and Plan: Osteomyelitis right 2nd toe. I explained the options of nonsurgical treatment verses toe amputation to both the patient and her son. I explained that the medical treatment would involve 6 weeks of IV antibiotics and there is no guarantee that would be successful. After discussion and phone call with her son, she wishes to go ahead with right 2nd toe amputation. I explained the procedure to her and the usual recovery. All questions were answered. We will plan to go ahead this afternoon. 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 This was complicated by a bowel infarction postoperatively. 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 She had been in [facility] in [place] since that time. Recently it was noted that she had purulent fluid and ulceration with erythema and swelling of her right 2nd toe. She was sent to the emergency room at [facility] yesterday. Plain films showed osteomyelitis of the distal phalanx. I saw her in consultation this morning. She has purulent fluid coming from the end of her right 2nd toe as well as easily palpable bone at the distal ulceration. She also has an ischemic ulcer on the dorsum of the toe just above the interphalangeal joint. The infection seems to be limited to the toe. After discussion with the patient and calling her son, Babatunde, plans are to proceed with right 2nd toe amputation in the operating room today. Review of Systems Review of Systems: All systems reviewed & are unremarkable except as noted in HPI and below (HPI) [facility] Past Medical History Medical History Esophagitis with gastritis Peptic ulcer of stomach Insulin dependent type 2 diabetes mellitus Pneumonia due to COVID-19 virus (04/05/22) Coronary artery disease (11/04/17) Non-STEMI (non-ST elevated myocardial infarction) (04/06/22) Hypertension Hyperlipidemia Surgical History Surgical History History of partial colectomy History of four vessel coronary artery bypass graft (05/2024) [facility] History of coronary artery stent placement History of appendectomy Family History Family History Father CHF (congestive heart failure) Mother Hypertension Social History Social History Social History: Surrogate medical decision maker: Babatunde Prakash, nayely ([phone]). Code status: Full code. Smoking status: Never smoker Alcohol intake: never Alcohol use details: rare alcohol use only in small amounts Substance use: never Substance use type: does not use Do You Feel Safe in your Home?: Yes Lack of Transportation: No Lack of Food: Never True Current Housing: I Have Housing Concerned About Future Housing: No Difficulty Paying Gas/Electric Bills: No Difficulty Paying for Meds: No Currently Unemployed: No Education: Decline to Answer Difficulty w/ Childcare or Family Care: No Living arrangements: with family Additional living arrangements comments: She lives with her brother and her beagle Vick. She has 1 son. 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 Spiritual care concerns: No Meds Home Medications and Allergies Home Medications ?Medication ?Instructions ?Recorded ?Confirmed ?Type losartan 100 mg tablet 100 mg PO DAILY 04/23/22 10/22/24 History metoprolol succinate 100 mg 50 mg PO BID 04/23/22 10/22/24 History tablet,extended release 24 hr aspirin 81 mg capsule 81 mg PO DAILY 08/08/22 10/22/24 History insulin human U-100 NPH-regulr 50 unit subcut BID 08/08/22 10/22/24 History 70-30 mix 100 unit/mL subcutaneous susp (Humulin 70/30 U-100 Insulin) rosuvastatin 20 mg tablet 20 mg PO DAILY 04/06/24 10/22/24 History sucralfate 100 mg/mL oral 10 ml PO ACHS 04/06/24 10/22/24 History suspension acetaminophen 325 mg tablet 650 mg PO Q8H PRN Pain (Scale 07/09/24 10/22/24 History Score 1-3) amiodarone 200 mg tablet 200 mg PO BID 07/09/24 10/22/24 History clopidogrel 75 mg tablet 75 mg PO DAILY 07/09/24 10/22/24 History furosemide 40 mg tablet 40 mg PO DAILY 07/09/24 10/22/24 History pantoprazole 40 mg tablet,delayed 20 mg PO DAILY 07/09/24 10/22/24 History release trazodone 50 mg tablet 50 mg PO HS 07/09/24 10/22/24 History calcium polycarbophil 625 mg 625 mg PO QAM #30 tabs 07/20/24 10/22/24 Rx tablet (Fiber (calcium polycarbophil)) dicyclomine 10 mg capsule 10 mg PO QID #90 caps 07/20/24 10/22/24 Rx magnesium oxide 400 mg PO BID 10/22/24 10/22/24 History ondansetron 4 mg disintegrating 4 mg PO Q6H PRN nausea and vomiting 10/22/24 10/22/24 History tablet sertraline 25 mg tablet 25 mg PO DAILY 10/22/24 10/22/24 History Allergies Allergy/AdvReac Type Severity Reaction Status Date / Time cephalexin (Keflex) Allergy Intermediate Hives Verified 10/21/24 22:37 Vital Signs Vital Signs - 24 hr 10/21/24 14:54 10/21/24 17:50 10/21/24 18:23 Temperature 36.4 C L Pulse Rate 78 80 Respiratory Rate 16 18 Blood Pressure 105/51 L 111/58 L 146/67 H Pulse Oximetry 100 100 100 Oxygen Delivery Room Air 10/21/24 18:49 10/21/24 19:01 10/21/24 19:40 Temperature Pulse Rate 81 Respiratory Rate 20 Blood Pressure 131/53 L 133/44 L Pulse Oximetry 100 100 Oxygen Delivery 10/21/24 20:10 10/21/24 20:11 10/21/24 20:16 Temperature Pulse Rate 81 80 82 Respiratory Rate 14 14 17 Blood Pressure 136/45 L 136/45 L 111/45 L Pulse Oximetry 100 100 100 Oxygen Delivery 10/21/24 20:21 10/21/24 20:46 10/21/24 21:31 Temperature Pulse Rate 88 87 88 Respiratory Rate 20 13 16 Blood Pressure 139/46 L 122/47 L Pulse Oximetry 100 100 Oxygen Delivery 10/21/24 22:20 10/21/24 22:32 10/21/24 23:50 Temperature 36.4 C L 36.4 C L Pulse Rate 90 83 Respiratory Rate 18 18 Blood Pressure 123/42 L 124/46 L Pulse Oximetry 100 100 Oxygen Delivery Room Air 10/22/24 00:00 10/22/24 00:00 10/22/24 02:00 Temperature Pulse Rate 83 86 Respiratory Rate Blood Pressure Pulse Oximetry Oxygen Delivery Room Air 10/22/24 04:00 10/22/24 04:00 10/22/24 04:48 Temperature 36.4 C Pulse Rate 83 84 Respiratory Rate 18 Blood Pressure 138/50 L Pulse Oximetry 100 Oxygen Delivery Room Air 10/22/24 06:00 10/22/24 07:25 10/22/24 07:26 Temperature Pulse Rate 90 85 Respiratory Rate 18 Blood Pressure Pulse Oximetry 98 Oxygen Delivery Room Air 10/22/24 07:50 10/22/24 07:57 Temperature 36.9 C Pulse Rate 85 96 Respiratory Rate 18 16 Blood Pressure 133/39 L Pulse Oximetry 100 Oxygen Delivery Exam Const: General: comfortable, no acute distress, alert and awake HENMT: Head: normocephalic and atraumatic Mouth: Yes Normal oral and palatal mucosa present Eyes: Conjunctivae: conjunctivae normal Pupils: Equal, round and reactive pupils present EOM: EOMs intact bilaterally Neck: Neck: normal visual inspection, no lymphadenopathy and nontender Resp: Effort & Inspection: normal respiratory effort Auscultation: clear to auscultation bilaterally Cardio: Rate: regular rate Rhythm: regular rhythm Heart sounds: no gallops, no murmurs and no rubs Peripheral pulses: dorsalis pedis present on the right 2+ GI: Inspection: non-distended GI Palp: Yes Soft to palpation, No Tenderness to palpation present (GI), No Hepatomegaly present and No Splenomegaly present Skin: General skin exam: turgor normal, dry skin, no ecchymosis and erythema Lesions: lesion noted (See right 2nd toe exam) Rashes: no rashes Neuro: General: no focal motor deficits and CN's II-XI intact bilaterally Cranial nerves: Yes Equal, round and reactive pupils present, Yes Bilaterally intact EOM present, Yes facial symmetry and Yes Midline tongue present Speech: normal speech Motor exam (neuro): 5/5 motor strength present throughout and Motor abnormalities not present Extrem: General: no clubbing, cyanosis or edema and edema Right lower extremity: foot (Right 2nd toe with ulceration tip and dorsum, purulent fluid) Details: vascular exam Details: dorsalis pedis pulse present; no tenderness and no crepitus Psych: Affect: normal affect Thought process: Normal thought process present Insight: Good insight present (Psych) Results Labs 10/22/24 04:23 10/22/24 04:23 Labs: Abnormal lab results 10/21/24 10/21/24 10/21/24 Range/Units 17:46 18:41 18:46 WBC 15.4 H (4.5-10.0) K/mm3 RBC 2.72 L (4.2-5.4) M/mm3 Hgb 8.3 L (12.0-15.0) g/dL Hct 26.0 L (37.0-47.0) % MCHC 31.9 L (32-36) g/dl RDW 15.6 H (11.5-14.5) % Plt Count 385 H (150-375) k/mm3 Immature Gran % (Auto) 1.2 H (0-0.5) % Neut % (Auto) 74.5 H (45.5-73.1) % Lymph % (Auto) 15.5 L (18.3-44.2) % [place] # (Auto) 1.0 H (0.1-0.6) K/mm3 Abs Immat Gran (auto) 0.18 H (0.00-0.031) K/mm3 Absolute Neuts (auto) 11.5 H (1.3-6.7) K/mm3 ESR 104 H (0-20) mm/hr PT 15.7 H (11.1-14.7) Seconds VBG pCO2 (42.0-48.0) mmHg VBG pO2 (35.0-45.0) mmHg VBG HCO3 (24.0-30.0) mEq/l Sodium 126 L (137-145) mmol/L Potassium 6.3 H* (3.4-5.0) mmol/L Chloride 96 L (98-107) mmol/L Carbon Dioxide 17 L (22-30) mmol/L Anion Gap 13 H (4-12) mmol/L BUN 69 H D (7-17) mg/dL Creatinine 1.74 H (0.7-1.0) mg/dL Estimated GFR 29 L (59 - ) Glucose 134 H (65-110) mg/dL Hemoglobin A1c 8.0 H (<5.7) % Phosphorus (2.5-4.5) mg/dL Iron (37-170) ug/dL % Saturation (20-50) % Ferritin (11.1-264) ng/mL C-Reactive Protein 3.2 H (<1.0) mg/dL Total Protein (6.3-8.2) g/dL Albumin (3.5-5.1) g/dL Urine Appearance Cloudy H (Clear) Leukocyte Esterase Rfl 3+ H (Negative) MILLI/UL Urine WBC 51-100 H (0-3) /hpf Urine Bacteria 1+ H /hpf 10/21/24 10/22/24 10/22/24 Range/Units 21:41 04:23 06:47 WBC 12.7 H (4.5-10.0) K/mm3 RBC 2.39 L (4.2-5.4) M/mm3 Hgb 7.4 L (12.0-15.0) g/dL Hct 22.9 L (37.0-47.0) % MCHC (32-36) g/dl RDW 15.7 H (11.5-14.5) % Plt Count (150-375) k/mm3 Immature Gran % (Auto) 1.3 H (0-0.5) % Neut % (Auto) 74.5 H (45.5-73.1) % Lymph % (Auto) 14.8 L (18.3-44.2) % [place] # (Auto) 1.0 H (0.1-0.6) K/mm3 Abs Immat Gran (auto) 0.16 H (0.00-0.031) K/mm3 Absolute Neuts (auto) 9.5 H (1.3-6.7) K/mm3 ESR > 140 H (0-20) mm/hr PT (11.1-14.7) Seconds VBG pCO2 (42.0-48.0) mmHg VBG pO2 (35.0-45.0) mmHg VBG HCO3 (24.0-30.0) mEq/l Sodium 126 L 133 L (137-145) mmol/L Potassium 5.9 H (3.4-5.0) mmol/L Chloride (98-107) mmol/L Carbon Dioxide 15 L 18 L (22-30) mmol/L Anion Gap (4-12) mmol/L BUN 65 H 56 H (7-17) mg/dL Creatinine 1.47 H 1.33 H (0.7-1.0) mg/dL Estimated GFR 35 L 39 L (59 - ) Glucose 158 H 116 H (65-110) mg/dL Hemoglobin A1c (<5.7) % Phosphorus 5.7 H (2.5-4.5) mg/dL Iron 28 L (37-170) ug/dL % Saturation 10 L (20-50) % Ferritin 345.00 H (11.1-264) ng/mL C-Reactive Protein 2.8 H (<1.0) mg/dL Total Protein 6.0 L (6.3-8.2) g/dL Albumin 3.0 L (3.5-5.1) g/dL Urine Appearance (Clear) Leukocyte Esterase Rfl (Negative) MILLI/UL Urine WBC (0-3) /hpf Urine Bacteria /hpf 10/22/24 Range/Units 07:12 WBC (4.5-10.0) K/mm3 RBC (4.2-5.4) M/mm3 Hgb (12.0-15.0) g/dL Hct (37.0-47.0) % MCHC (32-36) g/dl RDW (11.5-14.5) % Plt Count (150-375) k/mm3 Immature Gran % (Auto) (0-0.5) % Neut % (Auto) (45.5-73.1) % Lymph % (Auto) (18.3-44.2) % [place] # (Auto) (0.1-0.6) K/mm3 Abs Immat Gran (auto) (0.00-0.031) K/mm3 Absolute Neuts (auto) (1.3-6.7) K/mm3 ESR (0-20) mm/hr PT (11.1-14.7) Seconds VBG pCO2 31.5 L (42.0-48.0) mmHg VBG pO2 79.2 H (35.0-45.0) mmHg VBG HCO3 16.3 L (24.0-30.0) mEq/l Sodium (137-145) mmol/L Potassium (3.4-5.0) mmol/L Chloride (98-107) mmol/L Carbon Dioxide (22-30) mmol/L Anion Gap (4-12) mmol/L BUN (7-17) mg/dL Creatinine (0.7-1.0) mg/dL Estimated GFR (59 - ) Glucose (65-110) mg/dL Hemoglobin A1c (<5.7) % Phosphorus (2.5-4.5) mg/dL Iron (37-170) ug/dL % Saturation (20-50) % Ferritin (11.1-264) ng/mL C-Reactive Protein (<1.0) mg/dL Total Protein (6.3-8.2) g/dL Albumin (3.5-5.1) g/dL Urine Appearance (Clear) Leukocyte Esterase Rfl (Negative) MILLI/UL Urine WBC (0-3) /hpf Urine Bacteria /hpf Diabetes panel 10/21/24 10/21/24 10/21/24 Range/Units 17:46 18:41 21:41 Sodium 126 L 126 L (137-145) mmol/L Potassium 6.3 H* 5.0 (3.4-5.0) mmol/L Chloride 96 L 100 (98-107) mmol/L Carbon Dioxide 17 L 15 L (22-30) mmol/L BUN 69 H D 65 H (7-17) mg/dL Creatinine 1.74 H 1.47 H (0.7-1.0) mg/dL Glucose 134 H 158 H (65-110) mg/dL Hemoglobin A1c 8.0 H (<5.7) % Calcium 9.6 8.9 (8.4-10.2) mg/dL AST 19 (14-36) U/L ALT 19 (6-35) U/L Alkaline Phosphatase 108 (38-126) U/L Total Protein 8.0 (6.3-8.2) g/dL Albumin 3.8 (3.5-5.1) g/dL 10/22/24 Range/Units 04:23 Sodium 133 L (137-145) mmol/L Potassium 5.9 H (3.4-5.0) mmol/L Chloride 106 (98-107) mmol/L Carbon Dioxide 18 L (22-30) mmol/L BUN 56 H (7-17) mg/dL Creatinine 1.33 H (0.7-1.0) mg/dL Glucose 116 H (65-110) mg/dL Hemoglobin A1c (<5.7) % Calcium 9.1 (8.4-10.2) mg/dL AST 18 (14-36) U/L ALT 15 (6-35) U/L Alkaline Phosphatase 88 (38-126) U/L Total Protein 6.0 L (6.3-8.2) g/dL Albumin 3.0 L (3.5-5.1) g/dL Calcium panel 10/21/24 10/21/24 10/22/24 Range/Units 17:46 21:41 04:23 Calcium 9.6 8.9 9.1 (8.4-10.2) mg/dL Phosphorus 5.7 H (2.5-4.5) mg/dL Albumin 3.8 3.0 L (3.5-5.1) g/dL Pituitary panel 10/21/24 10/21/24 10/22/24 Range/Units 17:46 21:41 04:23 Sodium 126 L 126 L 133 L (137-145) mmol/L Potassium 6.3 H* 5.0 5.9 H (3.4-5.0) mmol/L Chloride 96 L 100 106 (98-107) mmol/L Carbon Dioxide 17 L 15 L 18 L (22-30) mmol/L BUN 69 H D 65 H 56 H (7-17) mg/dL Creatinine 1.74 H 1.47 H 1.33 H (0.7-1.0) mg/dL Glucose 134 H 158 H 116 H (65-110) mg/dL Calcium 9.6 8.9 9.1 (8.4-10.2) mg/dL Adrenal panel 10/21/24 10/21/24 10/22/24 Range/Units 17:46 21:41 04:23 Sodium 126 L 126 L 133 L (137-145) mmol/L Potassium 6.3 H* 5.0 5.9 H (3.4-5.0) mmol/L Chloride 96 L 100 106 (98-107) mmol/L Carbon Dioxide 17 L 15 L 18 L (22-30) mmol/L BUN 69 H D 65 H 56 H (7-17) mg/dL Creatinine 1.74 H 1.47 H 1.33 H (0.7-1.0) mg/dL Glucose 134 H 158 H 116 H (65-110) mg/dL Calcium 9.6 8.9 9.1 (8.4-10.2) mg/dL Total Bilirubin 0.6 0.4 (0.2-1.3) mg/dL AST 19 18 (14-36) U/L ALT 19 15 (6-35) U/L Alkaline Phosphatase 108 88 (38-126) U/L Total Protein 8.0 6.0 L (6.3-8.2) g/dL Albumin 3.8 3.0 L (3.5-5.1) g/dL All other labs normal. Imaging Additional studies: Plain films right foot show erosion and changes consistent with osteomyelitis of the distal phalanx 2nd toe
[2024-10-22 11:51] LABS: Glucose Point of Care 236 mg/dl (65-105)
[2024-10-22] MEDS: LACTATED RINGERS 1,000 ML 30 ML IV CONT (12:00)
--- NOTE | 2024-10-22 12:19 | WPDHPUPDATE1 ---
History and Physical Update Update Date/Time: 10/22/24 12:19 History and Physical has been reviewed, including an updated exam of the patient. There are NO changes in the patient's condition. Risks, benefits, and alternatives have been discussed and questions answered. Patient agrees to proceed with procedure.
--- NOTE | 2024-10-22 12:25 | WPDANESEPPF ---
Anes - Initial Pre Proc Eval Procedure: Operation Date: 10/22/24 12:30 Proposed Procedures p Right Second Toe Amputation - Ang Hernadez MD Date/Time: 10/22/24 12:25 Surgeon: Liana Novoa MD Pre Op Diagnosis: Cellulitis/osteomyelitis/UTI Patient Data Age: 69 Gender: F Height: 1.65 m Weight: 67.3 kg Last Vital Signs Temp 36.9 C 10/22/24 07:57 Pulse 96 10/22/24 07:57 Resp 16 10/22/24 07:57 BP 133/39 L 10/22/24 07:57 Pulse Ox 100 10/22/24 07:57 O2 Del Method Room Air 10/22/24 07:25 Allergies Allergy/AdvReac Type Severity Reaction Status Date / Time cephalexin (Keflex) Allergy Intermediate Hives Verified 10/21/24 22:37 Home Medications ?Medication ?Instructions ?Recorded ?Confirmed ?Type losartan 100 mg tablet 100 mg PO DAILY 04/23/22 10/22/24 History metoprolol succinate 100 mg 50 mg PO BID 04/23/22 10/22/24 History tablet,extended release 24 hr aspirin 81 mg capsule 81 mg PO DAILY 08/08/22 10/22/24 History insulin human U-100 NPH-regulr 50 unit subcut BID 08/08/22 10/22/24 History 70-30 mix 100 unit/mL subcutaneous susp (Humulin 70/30 U-100 Insulin) rosuvastatin 20 mg tablet 20 mg PO DAILY 04/06/24 10/22/24 History sucralfate 100 mg/mL oral 10 ml PO ACHS 04/06/24 10/22/24 History suspension acetaminophen 325 mg tablet 650 mg PO Q8H PRN Pain (Scale 07/09/24 10/22/24 History Score 1-3) amiodarone 200 mg tablet 200 mg PO BID 07/09/24 10/22/24 History clopidogrel 75 mg tablet 75 mg PO DAILY 07/09/24 10/22/24 History furosemide 40 mg tablet 40 mg PO DAILY 07/09/24 10/22/24 History pantoprazole 40 mg tablet,delayed 20 mg PO DAILY 07/09/24 10/22/24 History release trazodone 50 mg tablet 50 mg PO HS 07/09/24 10/22/24 History calcium polycarbophil 625 mg 625 mg PO QAM #30 tabs 07/20/24 10/22/24 Rx tablet (Fiber (calcium polycarbophil)) dicyclomine 10 mg capsule 10 mg PO QID #90 caps 07/20/24 10/22/24 Rx magnesium oxide 400 mg PO BID 10/22/24 10/22/24 History ondansetron 4 mg disintegrating 4 mg PO Q6H PRN nausea and vomiting 10/22/24 10/22/24 History tablet sertraline 25 mg tablet 25 mg PO DAILY 10/22/24 10/22/24 History Laboratory Tests 10/21/24 10/21/24 10/21/24 17:45 17:46 18:41 WBC 15.4 H K/mm3 (4.5-10.0) RBC 2.72 L M/mm3 (4.2-5.4) Hgb 8.3 L g/dL (12.0-15.0) Hct 26.0 L % (37.0-47.0) MCV 95.6 fl (80-100) MCH 30.5 pg (26-34) MCHC 31.9 L g/dl (32-36) RDW 15.6 H % (11.5-14.5) Plt Count 385 H k/mm3 (150-375) MPV 9.4 fl (7.4-10.4) Immature Gran % (Auto) 1.2 H % (0-0.5) Neut % (Auto) 74.5 H % (45.5-73.1) Lymph % (Auto) 15.5 L % (18.3-44.2) Lanier % (Auto) 6.7 % (2.6-8.5) Eos % (Auto) 1.4 % (0-4.4) Baso % (Auto) 0.7 % (0.2-1.2) Lymph # (Auto) 2.38 K/mm3 (0.9-3.2) Lanier # (Auto) 1.0 H K/mm3 (0.1-0.6) Eos # (Auto) 0.2 K/mm3 (0-0.3) Baso # (Auto) 0.1 K/mm3 (0.0-0.1) Abs Immat Gran (auto) 0.18 H K/mm3 (0.00-0.031) Absolute Neuts (auto) 11.5 H K/mm3 (1.3-6.7) Absolute Nucleated RBC 0.000 K/mm3 (0.0-0.012) Nucleated RBC % 0.0 % (0.0-0.2) ESR 104 H mm/hr (0-20) PT 15.7 H Seconds (11.1-14.7) INR 1.2 APTT 31.2 Seconds (22.3-36.8) VBG pH VBG pCO2 VBG pO2 VBG HCO3 O2 Delivery Device O2 Liters/Min FiO2 Sodium 126 L mmol/L (137-145) Potassium 6.3 H* mmol/L (3.4-5.0) Chloride 96 L mmol/L (98-107) Carbon Dioxide 17 L mmol/L (22-30) Anion Gap 13 H mmol/L (4-12) BUN 69 H D mg/dL (7-17) Creatinine 1.74 H mg/dL (0.7-1.0) Estim Creat Clear Calc 24 ml/min Estimated GFR 29 L (59 - ) Glucose 134 H mg/dL (65-110) POC Capillary Glucose Hemoglobin A1c 8.0 H % (<5.7) Lactic Acid 1.7 mmol/L (0.7-2.0) Calcium 9.6 mg/dL (8.4-10.2) Phosphorus Magnesium Iron TIBC % Saturation Ferritin Total Bilirubin 0.6 mg/dL (0.2-1.3) AST 19 U/L (14-36) ALT 19 U/L (6-35) Alkaline Phosphatase 108 U/L (38-126) Troponin I 0.012 ng/mL (0.000-0.034) C-Reactive Protein 3.2 H mg/dL (<1.0) Total Protein 8.0 g/dL (6.3-8.2) Albumin 3.8 g/dL (3.5-5.1) Vitamin B12 Folate Procalcitonin Urine Color Urine Appearance Urine pH Ur Specific [place] Urine Protein Urine Glucose (UA) Urine Ketones Ur Blood (Man) Urine Nitrate Urine Bilirubin Urine Urobilinogen Add Ur Microanalysis Leukocyte Esterase Rfl Urine RBC Urine WBC Ur Squamous Epith Cells Urine Bacteria Urine Casts Hyaline Casts 10/21/24 10/21/24 10/22/24 18:46 21:41 04:23 WBC 12.7 H K/mm3 (4.5-10.0) RBC 2.39 L M/mm3 (4.2-5.4) Hgb 7.4 L g/dL (12.0-15.0) Hct 22.9 L % (37.0-47.0) MCV 95.8 fl (80-100) MCH 31.0 pg (26-34) MCHC 32.3 g/dl (32-36) RDW 15.7 H % (11.5-14.5) Plt Count 314 k/mm3 (150-375) MPV 9.3 fl (7.4-10.4) Immature Gran % (Auto) 1.3 H % (0-0.5) Neut % (Auto) 74.5 H % (45.5-73.1) Lymph % (Auto) 14.8 L % (18.3-44.2) Lanier % (Auto) 7.8 % (2.6-8.5) Eos % (Auto) 1.1 % (0-4.4) Baso % (Auto) 0.5 % (0.2-1.2) Lymph # (Auto) 1.89 K/mm3 (0.9-3.2) Lanier # (Auto) 1.0 H K/mm3 (0.1-0.6) Eos # (Auto) 0.1 K/mm3 (0-0.3) Baso # (Auto) 0.1 K/mm3 (0.0-0.1) Abs Immat Gran (auto) 0.16 H K/mm3 (0.00-0.031) Absolute Neuts (auto) 9.5 H K/mm3 (1.3-6.7) Absolute Nucleated RBC 0.000 K/mm3 (0.0-0.012) Nucleated RBC % 0.0 % (0.0-0.2) ESR > 140 H mm/hr (0-20) PT INR APTT VBG pH VBG pCO2 VBG pO2 VBG HCO3 O2 Delivery Device O2 Liters/Min FiO2 Sodium 126 L mmol/L 133 L mmol/L (137-145) (137-145) Potassium 5.0 mmol/L 5.9 H mmol/L (3.4-5.0) (3.4-5.0) Chloride 100 mmol/L 106 mmol/L (98-107) (98-107) Carbon Dioxide 15 L mmol/L 18 L mmol/L (22-30) (22-30) Anion Gap 11 mmol/L 9 mmol/L (4-12) (4-12) BUN 65 H mg/dL 56 H mg/dL (7-17) (7-17) Creatinine 1.47 H mg/dL 1.33 H mg/dL (0.7-1.0) (0.7-1.0) Estim Creat Clear Calc 28 ml/min 31 ml/min Estimated GFR 35 L 39 L (59 - ) (59 - ) Glucose 158 H mg/dL 116 H mg/dL (65-110) (65-110) POC Capillary Glucose Hemoglobin A1c Lactic Acid Calcium 8.9 mg/dL 9.1 mg/dL (8.4-10.2) (8.4-10.2) Phosphorus 5.7 H mg/dL (2.5-4.5) Magnesium 2.0 mg/dL (1.6-2.3) Iron TIBC % Saturation Ferritin Total Bilirubin 0.4 mg/dL (0.2-1.3) AST 18 U/L (14-36) ALT 15 U/L (6-35) Alkaline Phosphatase 88 U/L (38-126) Troponin I C-Reactive Protein 2.8 H mg/dL (<1.0) Total Protein 6.0 L g/dL (6.3-8.2) Albumin 3.0 L g/dL (3.5-5.1) Vitamin B12 Folate Procalcitonin 0.1 ng/mL Urine Color Yellow (Yellow) Urine Appearance Cloudy H (Clear) Urine pH 5.0 (5.0-9.0) Ur Specific [place] 1.013 (1.001-1.035) Urine Protein Negative mg/dL (Negative) Urine Glucose (UA) Negative mg/dL (Negative) Urine Ketones Negative mg/dL (Negative) Ur Blood (Man) Negative (Negative) Urine Nitrate Negative (Negative) Urine Bilirubin Negative (Negative) Urine Urobilinogen 0.2 mg/dL (<2.0) Add Ur Microanalysis Reviewed Leukocyte Esterase Rfl 3+ H MILLI/UL (Negative) Urine RBC 0-2 /hpf (0-2) Urine WBC 51-100 H /hpf (0-3) Ur Squamous Epith Cells Few /hpf (Few) Urine Bacteria 1+ H /hpf Urine Casts 6-10 Hyaline Casts Present /lpf (None) 10/22/24 10/22/24 10/22/24 04:24 06:47 06:48 WBC RBC Hgb Hct MCV MCH MCHC RDW Plt Count MPV Immature Gran % (Auto) Neut % (Auto) Lymph % (Auto) Lanier % (Auto) Eos % (Auto) Baso % (Auto) Lymph # (Auto) Lanier # (Auto) Eos # (Auto) Baso # (Auto) Abs Immat Gran (auto) Absolute Neuts (auto) Absolute Nucleated RBC Nucleated RBC % ESR PT INR APTT VBG pH VBG pCO2 VBG pO2 VBG HCO3 O2 Delivery Device O2 Liters/Min FiO2 Sodium Potassium Chloride Carbon Dioxide Anion Gap BUN Creatinine Estim Creat Clear Calc Estimated GFR Glucose POC Capillary Glucose Hemoglobin A1c Lactic Acid 1.9 mmol/L (0.7-2.0) Calcium Phosphorus Magnesium Iron 28 L ug/dL (37-170) TIBC 277 ug/dL (261-462) % Saturation 10 L % (20-50) Ferritin 345.00 H ng/mL (11.1-264) Total Bilirubin AST ALT Alkaline Phosphatase Troponin I C-Reactive Protein Total Protein Albumin Vitamin B12 770.0 pg/mL (239-931) Folate 11.1 ng/mL (2.76->20) Procalcitonin Urine Color Urine Appearance Urine pH Ur Specific [place] Urine Protein Urine Glucose (UA) Urine Ketones Ur Blood (Man) Urine Nitrate Urine Bilirubin Urine Urobilinogen Add Ur Microanalysis Leukocyte Esterase Rfl Urine RBC Urine WBC Ur Squamous Epith Cells Urine Bacteria Urine Casts Hyaline Casts 10/22/24 10/22/24 07:12 11:48 WBC RBC Hgb Hct MCV MCH MCHC RDW Plt Count MPV Immature Gran % (Auto) Neut % (Auto) Lymph % (Auto) Lanier % (Auto) Eos % (Auto) Baso % (Auto) Lymph # (Auto) Lanier # (Auto) Eos # (Auto) Baso # (Auto) Abs Immat Gran (auto) Absolute Neuts (auto) Absolute Nucleated RBC Nucleated RBC % ESR PT INR APTT VBG pH 7.332 (7.300-7.400) VBG pCO2 31.5 L mmHg (42.0-48.0) VBG pO2 79.2 H mmHg (35.0-45.0) VBG HCO3 16.3 L mEq/l (24.0-30.0) O2 Delivery Device Room air O2 Liters/Min Not Reportable FiO2 21 % Sodium Potassium Chloride Carbon Dioxide Anion Gap BUN Creatinine Estim Creat Clear Calc Estimated GFR Glucose POC Capillary Glucose 236 H mg/dl (65-105) Hemoglobin A1c Lactic Acid Calcium Phosphorus Magnesium Iron TIBC % Saturation Ferritin Total Bilirubin AST ALT Alkaline Phosphatase Troponin I C-Reactive Protein Total Protein Albumin Vitamin B12 Folate Procalcitonin Urine Color Urine Appearance Urine pH Ur Specific [place] Urine Protein Urine Glucose (UA) Urine Ketones Ur Blood (Man) Urine Nitrate Urine Bilirubin Urine Urobilinogen Add Ur Microanalysis Leukocyte Esterase Rfl Urine RBC Urine WBC Ur Squamous Epith Cells Urine Bacteria Urine Casts Hyaline Casts Patient hx anesthesia problems: none Family hx anesthesia problems: none Results Review: All pre-operative results and documents have been reviewed as part of the pre-operative evaluation. [facility] Past Medical History Medical History Esophagitis with gastritis Peptic ulcer of stomach Insulin dependent type 2 diabetes mellitus Pneumonia due to COVID-19 virus (04/05/22) Coronary artery disease (11/04/17) Non-STEMI (non-ST elevated myocardial infarction) (04/06/22) Hypertension Hyperlipidemia Surgical History Surgical History History of partial colectomy History of four vessel coronary artery bypass graft (05/2024) [facility] History of coronary artery stent placement History of appendectomy Family History Family History Father CHF (congestive heart failure) Mother Hypertension Social History Social History Social History: Surrogate medical decision maker: Babatunde Prakash, son ([phone]). Code status: Full code. Smoking status: Never smoker Alcohol intake: never Alcohol use details: rare alcohol use only in small amounts Substance use: never Substance use type: does not use Do You Feel Safe in your Home?: Yes Lack of Transportation: No Lack of Food: Never True Current Housing: I Have Housing Concerned About Future Housing: No Difficulty Paying Gas/Electric Bills: No Difficulty Paying for Meds: No Currently Unemployed: No Education: Decline to Answer Difficulty w/ Childcare or Family Care: No Living arrangements: with family Additional living arrangements comments: She lives with her brother and her bebridgettee Vick. She has 1 son. 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 Spiritual care concerns: No Anes - Eval Final PreProcedure Day of Procedure 10/22/24 12:25 Patient weight: normal Heart: regular rate and rhythm Lungs: clear to auscultation Airway: Mallampati scale class II Neurological: alert and oriented Last oral intake: >/= 8 hours ASA classification: II Emergent: no Anesthetic plan: proceed Anesthesia type and monitoring: general GIVS and standard monitoring Results Review: All pre-operative results and documents have been reviewed as part of the pre-operative evaluation. Informed Consent: The patient's anesthetic plan and its attendant risks and benefits were discussed with the patient/family/POA. Questions were solicited and answers provided to the satisfaction of the patient/family/POA.
[2024-10-22 12:41] LABS: Potassium 5.1 mmol/L (3.4-5.0)
[2024-10-22] MEDS: LIDOCAINE 1% LOCAL INJ 20 ML VIAL 10 ML INFILTRATE (13:17)
--- NOTE | 2024-10-22 13:27 | P.OP_ITS ---
Procedure Note - Detailed Date of Procedure 10/22/24 Pre-op Diagnosis Osteomyelitis right 2nd toe, distal phalanx Post-op Diagnosis Same Procedure Performed Right 2nd toe amputation Surgeon Ang Hernadez MD [employer] Anesthesia General (G IV S) and Local Indications Patient has a swollen right 2nd toe with ulceration on the dorsum and particularly on the tip of the toe. This probes to bone. Plain films suggest distal phalanx osteomyelitis. There was purulent fluid coming from the tip of the toe. Patient is diabetic. After discussion, she is taken to surgery now for right 2nd toe amputation. Findings Well vascularized right 2nd toe. No evidence of infection at base of toe Description of Procedure Patient was taken to surgery and anesthesia was induced. The right foot was prepped and draped. Local anesthetic was infiltrated creating a digital block at the base of the right 2nd toe. The proposed incision which was transversely oriented with dorsal and plantar flaps was drawn on the skin. Incision was then made. The base of the proximal phalanx was exposed using a periosteal elevator. A bone cutter was then used and divided the toe at the proximal phalanx. The toe was passed off as a specimen. We then did some additional dissection. Rongeurs were used to remove more of the base of the proximal phalanx so that there was a smooth surface to the bone. Cautery was used for hemostasis but there was considerable oozing from the skin and subcutaneous. We then placed interrupted 3-0 Vicryl subcutaneous sutures. The skin was then loosely approximated with subcuticular interrupted 4-0 Vicryl suture. The wound was now dry. All skin surfaces appeared to be viable. The area of the foot was then cleaned. The amputation wound was dressed with Xeroform gauze, fluffs, Kerlix roll. Patient was then awakened and taken to recovery in good condition. Sponge and needle counts were correct x2. Estimated Blood Loss -10 Urine Output 700 Drains No Packing No Pathology Yes (Right 2nd toe) Complications None Condition Stable Disposition PACU [facility] Billing Surgery - Charge Forward: Surgery Billing (Right 2nd toe amputation)
[2024-10-22] MEDS: cefTRIAXone 2 GM/NS 100 ML 2 GM/100 ML BAG IVPB (15:18)
[2024-10-22] MEDS: metroNIDAZOLE 500 MG TABLET PO ×2 (15:18→21:13)
--- NOTE | 2024-10-22 15:34 | PC.NURSE ---
On 10/22/24, the student, [Bobbi Grullon], provided care and completed [facility] documentation on this patient. I have reviewed the student's documentation and agree with the findings.
[2024-10-22] MEDS: SODIUM ZIRCONIUM CYCLOSILICATE 10 GM POWD.PACK PO ×2 (15:48→21:14)
[2024-10-22] MEDS: INSULIN ASPART (*BKC) 100 UNITS/ML SUB-Q ×2 (18:24→22:06)
[2024-10-22 20:45] LABS: Glucose Point of Care 314 mg/dl (65-105)
[2024-10-22] MEDS: traZODone HCL 50 MG TABLET PO (21:13)
--- NOTE | 2024-10-22 23:33 | PC.NURSE ---
This RN transfered patient by bed to [facility]. RN December received report. Patient belongings with patient and patient oriented to unit protocol.
[2024-10-23] VITALS (14 sets, daily range): BP systolic 109–128; BP diastolic 43–54; PULSE 80–87; RESP 16–20; TEMP 36.1–36.7; O2SAT 91–98
[2024-10-23] MEDS: SODIUM CHLORIDE 0.9% IV 1,000 ML 100 ML IV CONT (03:18)
[2024-10-23] MEDS: metroNIDAZOLE 500 MG TABLET PO ×3 (05:58→21:04)
[2024-10-23 06:58] LABS: Basophils Percent Auto 0.4 % (0.2-1.2); Eosinophils Percent Auto 0.1 % (0-4.4); Hematocrit 21.1 % (37.0-47.0); Immature Granulocyte Absolute 0.08 K/mm3 (0.00-0.031); Immature Granulocyte Percent A 0.8 % (0-0.5); Lymphocytes Absolute Auto 1.08 K/mm3 (0.9-3.2); Mean Corpuscular HGB Conc 30.8 g/dl (32-36); Mean Corpuscular Hemoglobin 30.4 pg (26-34); Mean Corpuscular Volume 98.6 fl (80-100); Mean Platelet Volume 9.3 fl (7.4-10.4); Monocytes Absolute Auto 0.6 K/mm3 (0.1-0.6); Monocytes Percent Auto 6.4 % (2.6-8.5); Neutrophils Percent Auto 81.3 % (45.5-73.1); Platelet Count Result 310 k/mm3 (150-375); Red Blood Count 2.14 M/mm3 (4.2-5.4); Red Cell Distribution Width 16.1 % (11.5-14.5); White Blood Count 9.9 K/mm3 (4.5-10.0)
[2024-10-23 07:07] LABS: Hemoglobin 6.5 g/dL (12.0-15.0)
[2024-10-23 07:15] LABS: Alanine Aminotransferase 16 U/L (6-35); Albumin Level 2.8 g/dL (3.5-5.1); Alkaline Phosphatase 77 U/L (38-126); Anion Gap 7 mmol/L (4-12); Aspartate Amino Transferase 24 U/L (14-36); Bilirubin,Total 0.3 mg/dL (0.2-1.3); Blood Urea Nitrogen 39 mg/dL (7-17); Calcium 8.5 mg/dL (8.4-10.2); Carbon Dioxide 21 mmol/L (22-30); Chloride 107 mmol/L (98-107); Estimated CRCL calculation 37 ml/min; Estimated Glomerular Filt Rate 47; Glucose 267 mg/dL (65-110); Magnesium 2.1 mg/dL (1.6-2.3); Phosphorus 3.7 mg/dL (2.5-4.5); Potassium 4.8 mmol/L (3.4-5.0); Sodium 135 mmol/L (137-145)
[2024-10-23 07:38] LABS: Erythrocyte Sedimentation Rate > 140 mm/hr (0-20); Procalcitonin 0.1 ng/mL
[2024-10-23 08:58] LABS: Glucose Point of Care 270 mg/dl (65-105)
[2024-10-23] MEDS: INSULIN ASPART (*BKC) 100 UNITS/ML SUB-Q ×2 (09:45→13:06)
[2024-10-23] MEDS: PANTOPRAZOLE 40 MG TABLET PO (09:46)
[2024-10-23] MEDS: DICYCLOMINE HCL 10 MG CAPSULE PO ×4 (09:46→21:04)
[2024-10-23] MEDS: MAGNESIUM OXIDE 400 MG TABLET PO ×2 (09:46→18:45)
[2024-10-23] MEDS: ROSUVASTATIN 20 MG TABLET PO (09:46)
[2024-10-23] MEDS: AMIODARONE HCL 200 MG TABLET PO ×2 (09:48→18:45)
[2024-10-23] MEDS: METOPROLOL SUCCINATE EXT REL 50 MG TABCR PO ×2 (09:49→21:04)
[2024-10-23] MEDS: SERTRALINE HCL 25 MG TABLET PO (09:49)
--- NOTE | 2024-10-23 10:11 | PM.IMPN ---
Progress Note: A&P Assessment and Plan (1) Essential hypertension: Code(s): I10 - Essential (primary) hypertension Status: Acute (2) Coronary artery disease: Onset Date: 11/04/17 Code(s): I25.10 - Atherosclerotic heart disease of [place] coronary artery without angina pectoris Status: Acute (3) Hyperlipidemia: Code(s): E78.5 - Hyperlipidemia, unspecified Status: Acute (4) Type 2 diabetes mellitus with hyperglycemia, with long-term current use of insulin: Code(s): E11.65 - Type 2 diabetes mellitus with hyperglycemia; Z79.4 - jail (current) use of insulin Status: Acute (5) Diabetic foot ulcer: Code(s): E11.621 - Type 2 diabetes mellitus with foot ulcer; L97.509 - Non-pressure chronic ulcer of other part of unspecified foot with unspecified severity Status: Chronic Plan A 69-year-old female who presents to the ER from nursing facility with concerns for infected 2nd toe right foot. She noticed redness and sore spot in the beginning of this month. She went to see primary provider with been watching the wound. Continued worsening she was sent to the ER for evaluation. She denies any fever chills leg swelling calf pain. She does have history of diabetes. He had recent complicated course after CABG in May followed by bowel ischemia leading to i.e. ostomy placement. She has been in rehab since then. Patient is not on any antibiotics currently. On ED evaluation her vitals were stable she was afebrile. EKG showed normal sinus rhythm with no signs of acute ischemia. Laboratory evaluation revealed leukocytosis of 15.4 hemoglobin of 8 which is around baseline sodium of 126 potassium 6.3 bicarb 17 BUN 69 creatinine 1.7 which is higher than her baseline creatinine level. CRP is 3.2. Urinalysis revealed 51-100 WBC 3 +leukocyte esterase. Patient received calcium gluconate IV insulin dextrose Kayexalate and albuterol for hyperkalemia and was started on IV fluids. X-ray of the right foot was obtained which showed significant soft tissue swelling with bony erosions the peripheral most portion of the distal phalanx of the 2nd toe consistent with osteomyelitis. Patient has been started on IV vancomycin and ciprofloxacin for osteomyelitis. Blood cultures were obtained. General surgery has been consulted. Purulent discharge comes from the toe infection site on evaluation. She underwent right 2nd toe amputation 10/22/2024. Will continue IV antibiotics which was switched to ceftriaxone vancomycin and metronidazole. Her blood culture came back positive for Gram-positive cocci in chains. Yet to be identified. Continue current antibiotics. Dressing changes per General surgery. Diabetic toe infection with osteomyelitis of phalanx MILENA creatinine 1.7. Baseline creatinine 0.9 IV fluid to continue will hold Lasix. Renal failure resolved Acute on Chronic anemia hemoglobin down to 6.5 will transfuse 1 unit of PRBC today. Will stop IV fluid. Aspirin Plavix on hold Hyponatremia mild on admission 126. Improved UTI on ceftriaxone. Urine culture pending Hyperkalemia treated. Resolved Coronary artery disease status post CABG May of 2024 Hypertension Hyperlipidemia Status post partial colectomy and ostomy placement June 2024. Peptic ulcer disease Type 2 diabetes on insulin A1c at 8 add basal insulin DVTprophylaxis SCDs Lovenox which will be held due to anemia Code status full code Subjective Date/time seen: 10/23/24 10:11 Interval history: Patient underwent toe amputation yesterday per feels well this a.m.. Labs were reviewed. Review of Systems Review of Systems: All systems reviewed & are unremarkable except as noted in HPI and below Exam Narrative: General: Alert, awake, afebrile, in no acute distress. HEENT: PERRL, no rhinorrhea, no post nasal drip, oropharynx clear. Neck: Trachea midline, no JVD, no lymphadenopathy. Cardiovascular: Regular rate and rhythm, no murmurs, rubs or gallops, no peripheral edema. Respiratory: Clear to auscultation bilaterally, no tachypnea, no wheezing, no rhonchi, no rubs, no respiratory distress. Abdomen: Soft, nontender, nondistended, no rebound, no guarding, no peritoneal signs. Musculoskeletal: Right foot with dressing in place Skin: No rashes or petechia, no signs of infection. Psychiatric: Alert and oriented, normal behavior and judgment for situation. Neurological: Alert and oriented to person, place, and time. Follows all commands. No focal deficits, speech is clear and fluent. Objective Data Vital Signs Vital Signs: Vital Signs - 24 hr 10/22/24 12:00 10/22/24 13:27 10/22/24 13:40 Temperature 97.8 F 98.1 F Pulse Rate 113 H 97 100 Respiratory Rate 16 16 17 Blood Pressure 120/45 L 105/44 L 118/53 L Pulse Oximetry 100 100 100 Oxygen Delivery Room Air Simple Face Mask Simple Face Mask Oxygen Flow Rate 6 6 10/22/24 13:55 10/22/24 14:00 10/22/24 14:10 Temperature Pulse Rate 102 H 98 98 Respiratory Rate 14 17 Blood Pressure 120/52 L 117/54 L Pulse Oximetry 100 100 Oxygen Delivery Room Air Room Air Oxygen Flow Rate 10/22/24 14:25 10/22/24 15:00 10/22/24 15:15 Temperature 98.3 F 96.3 F L Pulse Rate 96 93 98 Respiratory Rate 17 18 16 Blood Pressure 118/47 L 98/41 L 99/38 L Pulse Oximetry 100 93 96 Oxygen Delivery Room Air Oxygen Flow Rate 10/22/24 16:00 10/22/24 16:00 10/22/24 16:00 Temperature 97.4 F L Pulse Rate 96 102 H Respiratory Rate 16 Blood Pressure 118/40 L Pulse Oximetry 100 Oxygen Delivery Room Air Oxygen Flow Rate 10/22/24 16:45 10/22/24 17:42 10/22/24 18:00 Temperature 97.7 F Pulse Rate 90 102 H 99 Respiratory Rate 17 Blood Pressure 130/44 L Pulse Oximetry 98 Oxygen Delivery Oxygen Flow Rate 10/22/24 19:57 10/22/24 20:00 10/22/24 20:00 Temperature 97.7 F Pulse Rate 102 H 104 H Respiratory Rate 18 Blood Pressure 129/42 L Pulse Oximetry 94 Oxygen Delivery Room Air Oxygen Flow Rate 10/22/24 21:13 10/22/24 22:00 10/23/24 06:00 Temperature 97.0 F L Pulse Rate 103 H 103 H 86 Respiratory Rate 18 Blood Pressure 117/48 L Pulse Oximetry 97 Oxygen Delivery Oxygen Flow Rate 10/23/24 09:48 10/23/24 09:49 Temperature Pulse Rate 86 86 Respiratory Rate Blood Pressure Pulse Oximetry Oxygen Delivery Oxygen Flow Rate Intake/Output Intake/Output: Intake & Output 10/20/24 10/21/24 10/22/24 10/23/24 23:59 23:59 23:59 23:59 Intake Total 1400 3440 1000 Output Total 3125 Balance 0891 096 1842 Meds/Results Medications: Active Medications Generic Name Dose Route Start Last Admin Trade Name Freq PRN Reason Stop Dose Admin Acetaminophen 500 mg 10/22/24 14:27 Acetaminophen 500 Mg Tablet PO Q6H PRN Pain Rated 1-3 Amiodarone HCl 200 mg 10/22/24 08:00 10/23/24 09:48 Amiodarone Hcl 200 Mg Tablet PO 200 mg BIDWM [place] Administration Dextrose 12.5 gm 10/22/24 00:26 Dextrose 50% 25 Gm/50 Ml Syringe IV PUSH PRN PRN Hypoglycemia Protocol Dicyclomine HCl 10 mg 10/22/24 09:00 10/23/24 09:46 Dicyclomine Hcl 10 Mg Capsule PO 10 mg QID [place] Administration Enoxaparin Sodium 40 mg 10/23/24 09:00 10/23/24 08:43 Enoxaparin 40 Mg/0.4 Ml Syringe SUB-Q Not Given DAILY [place] Fentanyl Citrate 25 mcg 10/22/24 14:27 Fentanyl Citrate Inj (*Crx) 100 Mcg/2 Ml Vial IV PUSH Q2H PRN Breakthrough Pain Rated 7-10 or NPO Glucagon 1 mg 10/22/24 00:26 Glucagon For Inj 1 Mg Vial IM PRN PRN Hypoglycemia Protocol Glucose 15 gm 10/22/24 00:26 Glucose Oral Gel 15 Gm Of Glucse In 37.5 Gm Tube PO PRN PRN Hypoglycemia Protocol Sodium Chloride 1,000 mls @ 100 mls/hr 10/22/24 03:00 10/23/24 09:49 Normal Saline Iv IV CONT Not Given .Q10H [place] Vancomycin HCl 1,250 mg in 250 mls @ 166.667 mls/hr 10/23/24 11:00 Vancomycin 1,250 Mg/Ns 250 Ml IVPB Q36H [facility] Dextrose 1,000 mls @ 100 mls/hr 10/22/24 00:26 Dextrose 5% 1,000 Ml IVPB PRN PRN Hypoglycemia Protocol Ceftriaxone Sodium 2 gm in 100 mls @ 200 mls/hr 10/22/24 14:00 10/22/24 15:18 Rocephin 2 Gm/Ns 100 Ml IVPB 200 mls/hr Q24H [place] Administration Sodium Chloride 250 mls @ 30 mls/hr 10/23/24 09:22 Normal Saline Iv IV CONT 10/23/24 17:41 .Q8H20M STA Insulin Aspart 4 - 8 units 10/22/24 21:00 10/23/24 09:45 Insulin Aspart (*Bkc) 100 Units/Ml SUB-Q 5 units 0800,1200,1700,2100 [place] Administration Protocol Magnesium Oxide 400 mg 10/22/24 09:00 10/23/24 09:46 Magnesium Oxide 400 Mg Tablet PO 400 mg BID [place] Administration Metoprolol Succinate 50 mg 10/22/24 09:00 10/23/24 09:49 Metoprolol Succinate Ext Rel 50 Mg Tabcr PO 50 mg Q12HR [place] Administration Metronidazole 500 mg 10/22/24 14:00 10/23/24 05:58 Metronidazole 500 Mg Tablet PO 500 mg Q8HR [place] Administration Oxycodone/Acetaminophen 0.5 tablet 10/22/24 14:27 Oxycodone/Acetaminophen (*Crx) 5-325 Mg Tablet PO Q4H PRN Pain Rated 4-6 Pantoprazole Sodium 40 mg 10/22/24 09:00 10/23/24 09:46 Pantoprazole 40 Mg Tablet PO 40 mg DAILY [place] Administration Rosuvastatin Calcium 20 mg 10/22/24 09:00 10/23/24 09:46 Rosuvastatin 20 Mg Tablet PO 20 mg DAILY [place] Administration Sertraline HCl 25 mg 10/22/24 09:00 10/23/24 09:49 Sertraline Hcl 25 Mg Tablet PO 25 mg DAILY [place] Administration Sodium Zirconium Cyclosilicate 10 gm 10/22/24 10:00 10/22/24 21:14 Sodium Zirconium Cyclosilicate 10 Gm Powd.Pack PO 10 gm TID@1000,1500,2200 [place] Administration Trazodone HCl 50 mg 10/22/24 21:00 10/22/24 21:13 Trazodone Hcl 50 Mg Tablet PO 50 mg HS [place] Administration Radiology Results: ITS Impressions Foot X-Ray 10/21/24 15:25 IMPRESSION: Significant soft tissue swelling with bony erosion the peripheral most portion of the distal phalanx of the second toe Labs Labs: Laboratory Results - last 24 hr 10/22/24 10/22/24 10/22/24 11:48 12:29 18:00 WBC RBC Hgb Hct MCV MCH MCHC RDW Plt Count MPV Immature Gran % (Auto) Neut % (Auto) Lymph % (Auto) [place] % (Auto) Eos % (Auto) Baso % (Auto) Lymph # (Auto) [place] # (Auto) Eos # (Auto) Baso # (Auto) Abs Immat Gran (auto) Absolute Neuts (auto) Absolute Nucleated RBC Nucleated RBC % ESR Sodium Potassium 5.1 H Chloride Carbon Dioxide Anion Gap BUN Creatinine Estim Creat Clear Calc Estimated GFR Glucose POC Capillary Glucose 236 H 314 H Calcium Phosphorus Magnesium Total Bilirubin AST ALT Alkaline Phosphatase C-Reactive Protein Total Protein Albumin Procalcitonin 10/23/24 10/23/24 06:40 08:30 WBC 9.9 RBC 2.14 L Hgb 6.5 L* Hct 21.1 L MCV 98.6 MCH 30.4 MCHC 30.8 L RDW 16.1 H Plt Count 310 MPV 9.3 Immature Gran % (Auto) 0.8 H Neut % (Auto) 81.3 H Lymph % (Auto) 11.0 L [place] % (Auto) 6.4 Eos % (Auto) 0.1 Baso % (Auto) 0.4 Lymph # (Auto) 1.08 [place] # (Auto) 0.6 Eos # (Auto) 0.0 Baso # (Auto) 0.0 Abs Immat Gran (auto) 0.08 H Absolute Neuts (auto) 8.0 H Absolute Nucleated RBC 0.000 Nucleated RBC % 0.0 ESR > 140 H Sodium 135 L Potassium 4.8 Chloride 107 Carbon Dioxide 21 L Anion Gap 7 BUN 39 H D Creatinine 1.13 H Estim Creat Clear Calc 37 Estimated GFR 47 L Glucose 267 H POC Capillary Glucose 270 H Calcium 8.5 Phosphorus 3.7 Magnesium 2.1 Total Bilirubin 0.3 AST 24 ALT 16 Alkaline Phosphatase 77 C-Reactive Protein 3.0 H Total Protein 6.0 L Albumin 2.8 L Procalcitonin 0.1
[2024-10-23 12:12] LABS: Glucose Point of Care 331 mg/dl (65-105)
[2024-10-23] MEDS: VANCOMYCIN 1,250 MG/NS 250 ML 1,250 MG/250 ML BAG 166 MG IVPB (12:14)
[2024-10-23] MEDS: INSULIN ASPART (*BKC) 100 UNITS/ML 8 UNITS SUB-Q ×2 (13:06→18:45)
[2024-10-23] MEDS: SODIUM CHLORIDE 0.9% IV 250 ML 30 ML IV CONT (14:15)
[2024-10-23] MEDS: TUBING, BLOOD PLUM PUMP TUBING 1 EACH XX (14:15)
[2024-10-23] MEDS: cefTRIAXone 2 GM/NS 100 ML 2 GM/100 ML BAG IVPB (14:21)
--- NOTE | 2024-10-23 15:49 | PM.PNGS ---
Progress Note: A&P Assessment and Plan (1) Osteomyelitis: Qualifiers: Laterality: right Osteomyelitis location: foot Osteomyelitis type: chronic, with draining sinus Qualified Code(s): M86.471 - Chronic osteomyelitis with draining sinus, right ankle and foot Code(s): M86.9 - Osteomyelitis, unspecified Status: Acute Assessment and Plan: Feels better. Wound dressing dry and intact. Will change tomorrow. Continue antibiotics of vancomycin, metronidazole, ceftriaxone. (2) Insulin dependent type 2 diabetes mellitus: Code(s): E11.9 - Type 2 diabetes mellitus without complications; Z79.4 - [employer] (current) use of insulin Status: Chronic Subjective Subjective Date/Time Seen: 10/23/24 15:49 Post Op day: 1 Patient reports: no new complaints, feels better, pain is less and afebrile Exam Const: General: healthy appearing, comfortable, alert and awake Extrem: Right lower extremity: foot (Foot warm, no swelling, dressing dry and intact) Details: normal capillary refill and no edema; no unusual warmth and no crepitus Objective Data Vital Signs Vital Signs: Vital Signs - 24 hr 10/22/24 16:00 10/22/24 16:00 10/22/24 16:00 Temperature 36.3 C L Pulse Rate 96 102 H Respiratory Rate 16 Blood Pressure 118/40 L Pulse Oximetry 100 Oxygen Delivery Room Air 10/22/24 16:45 10/22/24 17:42 10/22/24 18:00 Temperature 36.5 C Pulse Rate 90 102 H 99 Respiratory Rate 17 Blood Pressure 130/44 L Pulse Oximetry 98 Oxygen Delivery 10/22/24 19:57 10/22/24 20:00 10/22/24 20:00 Temperature 36.5 C Pulse Rate 102 H 104 H Respiratory Rate 18 Blood Pressure 129/42 L Pulse Oximetry 94 Oxygen Delivery Room Air 10/22/24 21:13 10/22/24 22:00 10/23/24 06:00 Temperature 36.1 C L Pulse Rate 103 H 103 H 86 Respiratory Rate 18 Blood Pressure 117/48 L Pulse Oximetry 97 Oxygen Delivery 10/23/24 08:00 10/23/24 09:48 10/23/24 09:49 Temperature Pulse Rate 86 86 Respiratory Rate Blood Pressure Pulse Oximetry Oxygen Delivery Room Air 10/23/24 14:15 10/23/24 14:31 10/23/24 15:31 Temperature 36.3 C L 36.7 C 36.6 C Pulse Rate 81 82 80 Respiratory Rate 20 17 18 Blood Pressure 111/43 L 109/51 L 111/50 L Pulse Oximetry 98 93 94 Oxygen Delivery Intake/Output Intake/Output: Intake & Output 10/20/24 10/21/24 10/22/24 10/23/24 23:59 23:59 23:59 23:59 Intake Total 1400 3540 1000 Output Total 3125 Balance 2856 293 8210 Meds/Results Medications: Active Medications Generic Name Dose Route Start Last Admin Trade Name Freq PRN Reason Stop Dose Admin Acetaminophen 500 mg 10/22/24 14:27 Acetaminophen 500 Mg Tablet PO Q6H PRN Pain Rated 1-3 Amiodarone HCl 200 mg 10/22/24 08:00 10/23/24 09:48 Amiodarone Hcl 200 Mg Tablet PO 200 mg BIDWM [place] Administration Dextrose 12.5 gm 10/22/24 00:26 Dextrose 50% 25 Gm/50 Ml Syringe IV PUSH PRN PRN Hypoglycemia Protocol Dextrose 12.5 gm 10/23/24 10:15 Dextrose 50% 25 Gm/50 Ml Syringe IV PUSH PRN PRN Hypoglycemia Protocol Dicyclomine HCl 10 mg 10/22/24 09:00 10/23/24 13:06 Dicyclomine Hcl 10 Mg Capsule PO 10 mg QID [place] Administration Enoxaparin Sodium 40 mg 10/23/24 09:00 10/23/24 08:43 Enoxaparin 40 Mg/0.4 Ml Syringe SUB-Q Not Given DAILY [place] Fentanyl Citrate 25 mcg 10/22/24 14:27 Fentanyl Citrate Inj (*Crx) 100 Mcg/2 Ml Vial IV PUSH Q2H PRN Breakthrough Pain Rated 7-10 or NPO Glucagon 1 mg 10/22/24 00:26 Glucagon For Inj 1 Mg Vial IM PRN PRN Hypoglycemia Protocol Glucagon 1 mg 10/23/24 10:15 Glucagon For Inj 1 Mg Vial IM PRN PRN Hypoglycemia Protocol Glucose 15 gm 10/22/24 00:26 Glucose Oral Gel 15 Gm Of Glucse In 37.5 Gm Tube PO PRN PRN Hypoglycemia Protocol Glucose 15 gm 10/23/24 10:15 Glucose Oral Gel 15 Gm Of Glucse In 37.5 Gm Tube PO PRN PRN Hypoglycemia Protocol Vancomycin HCl 1,250 mg in 250 mls @ 166.667 mls/hr 10/23/24 11:00 10/23/24 12:14 Vancomycin 1,250 Mg/Ns 250 Ml IVPB 166 mls/hr Q36H [place] Administration Dextrose 1,000 mls @ 100 mls/hr 10/22/24 00:26 Dextrose 5% 1,000 Ml IVPB PRN PRN Hypoglycemia Protocol Ceftriaxone Sodium 2 gm in 100 mls @ 200 mls/hr 10/22/24 14:00 10/23/24 14:21 Rocephin 2 Gm/Ns 100 Ml IVPB 200 mls/hr Q24H [place] Administration Sodium Chloride 250 mls @ 30 mls/hr 10/23/24 09:22 10/23/24 14:15 Normal Saline Iv IV CONT 10/23/24 17:41 30 mls/hr .Q8H20M STA Administration Dextrose 1,000 mls @ 100 mls/hr 10/23/24 10:15 Dextrose 5% 1,000 Ml IVPB PRN PRN Hypoglycemia Protocol Insulin Aspart 4 - 8 units 10/23/24 12:00 10/23/24 13:06 Insulin Aspart (*Bkc) 100 Units/Ml SUB-Q 6 units TIDWM [place] Administration Protocol Insulin Aspart 8 units 10/23/24 12:00 10/23/24 13:06 Insulin Aspart (*Bkc) 100 Units/Ml SUB-Q 8 units TIDWM [place] Administration Insulin Glargine 20 units 10/23/24 21:00 Insulin Glargine (*Bkc) 100 Units/Ml SUB-Q HS [place] Magnesium Oxide 400 mg 10/22/24 09:00 10/23/24 09:46 Magnesium Oxide 400 Mg Tablet PO 400 mg BID [place] Administration Metoprolol Succinate 50 mg 10/22/24 09:00 10/23/24 09:49 Metoprolol Succinate Ext Rel 50 Mg Tabcr PO 50 mg Q12HR [place] Administration Metronidazole 500 mg 10/22/24 14:00 10/23/24 14:19 Metronidazole 500 Mg Tablet PO 500 mg Q8HR [place] Administration Oxycodone/Acetaminophen 0.5 tablet 10/22/24 14:27 Oxycodone/Acetaminophen (*Crx) 5-325 Mg Tablet PO Q4H PRN Pain Rated 4-6 Pantoprazole Sodium 40 mg 10/22/24 09:00 10/23/24 09:46 Pantoprazole 40 Mg Tablet PO 40 mg DAILY [place] Administration Rosuvastatin Calcium 20 mg 10/22/24 09:00 10/23/24 09:46 Rosuvastatin 20 Mg Tablet PO 20 mg DAILY [place] Administration Sertraline HCl 25 mg 10/22/24 09:00 10/23/24 09:49 Sertraline Hcl 25 Mg Tablet PO 25 mg DAILY [place] Administration Sodium Zirconium Cyclosilicate 10 gm 10/22/24 10:00 10/23/24 10:15 Sodium Zirconium Cyclosilicate 10 Gm Powd.Pack PO Not Given TID@1000,1500,2200 [place] Trazodone HCl 50 mg 10/22/24 21:00 10/22/24 21:13 Trazodone Hcl 50 Mg Tablet PO 50 mg HS [place] Administration Radiology Results: ITS Impressions Foot X-Ray 10/21/24 15:25 IMPRESSION: Significant soft tissue swelling with bony erosion the peripheral most portion of the distal phalanx of the second toe Labs Labs: Laboratory Results - last 24 hr 10/22/24 10/23/24 10/23/24 18:00 06:40 08:30 WBC 9.9 RBC 2.14 L Hgb 6.5 L* Hct 21.1 L MCV 98.6 MCH 30.4 MCHC 30.8 L RDW 16.1 H Plt Count 310 MPV 9.3 Immature Gran % (Auto) 0.8 H Neut % (Auto) 81.3 H Lymph % (Auto) 11.0 L [place] % (Auto) 6.4 Eos % (Auto) 0.1 Baso % (Auto) 0.4 Lymph # (Auto) 1.08 [place] # (Auto) 0.6 Eos # (Auto) 0.0 Baso # (Auto) 0.0 Abs Immat Gran (auto) 0.08 H Absolute Neuts (auto) 8.0 H Absolute Nucleated RBC 0.000 Nucleated RBC % 0.0 ESR > 140 H Sodium 135 L Potassium 4.8 Chloride 107 Carbon Dioxide 21 L Anion Gap 7 BUN 39 H D Creatinine 1.13 H Estim Creat Clear Calc 37 Estimated GFR 47 L Glucose 267 H POC Capillary Glucose 314 H 270 H Calcium 8.5 Phosphorus 3.7 Magnesium 2.1 Total Bilirubin 0.3 AST 24 ALT 16 Alkaline Phosphatase 77 C-Reactive Protein 3.0 H Total Protein 6.0 L Albumin 2.8 L Procalcitonin 0.1 Blood Type Antibody Screen Crossmatch 10/23/24 10/23/24 10:12 12:06 WBC RBC Hgb Hct MCV MCH MCHC RDW Plt Count MPV Immature Gran % (Auto) Neut % (Auto) Lymph % (Auto) [place] % (Auto) Eos % (Auto) Baso % (Auto) Lymph # (Auto) [place] # (Auto) Eos # (Auto) Baso # (Auto) Abs Immat Gran (auto) Absolute Neuts (auto) Absolute Nucleated RBC Nucleated RBC % ESR Sodium Potassium Chloride Carbon Dioxide Anion Gap BUN Creatinine Estim Creat Clear Calc Estimated GFR Glucose POC Capillary Glucose 331 H Calcium Phosphorus Magnesium Total Bilirubin AST ALT Alkaline Phosphatase C-Reactive Protein Total Protein Albumin Procalcitonin Blood Type A Negative Antibody Screen Negative Crossmatch See Detail
[2024-10-23 17:09] LABS: Glucose Point of Care 156 mg/dl (65-105)
[2024-10-23 20:06] LABS: Hematocrit 28.3 % (37.0-47.0)
[2024-10-23] MEDS: INSULIN GLARGINE (*BKC) 100 UNITS/ML 20 UNITS SUB-Q (21:04)
[2024-10-23] MEDS: traZODone HCL 50 MG TABLET PO (21:04)
[2024-10-23 22:09] LABS: Glucose Point of Care 191 mg/dl (65-105)
[2024-10-24] VITALS (8 sets, daily range): BP systolic 113–145; BP diastolic 39–52; PULSE 74–82; RESP 14–18; TEMP 36.5–36.8; O2SAT 94–99
[2024-10-24] MEDS: metroNIDAZOLE 500 MG TABLET PO ×3 (05:09→21:31)
[2024-10-24 07:55] LABS: Basophils Absolute Auto 0.1 K/mm3 (0.0-0.1); Basophils Percent Auto 0.6 % (0.2-1.2); Eosinophils Absolute Auto 0.1 K/mm3 (0-0.3); Eosinophils Percent Auto 0.5 % (0-4.4); Hemoglobin 8.3 g/dL (12.0-15.0); Immature Granulocyte Absolute 0.19 K/mm3 (0.00-0.031); Immature Granulocyte Percent A 1.3 % (0-0.5); Lymphocytes Absolute Auto 1.75 K/mm3 (0.9-3.2); Lymphocytes Percent Auto 11.7 % (18.3-44.2); Mean Corpuscular HGB Conc 31.9 g/dl (32-36); Mean Platelet Volume 9.3 fl (7.4-10.4); Monocytes Absolute Auto 0.9 K/mm3 (0.1-0.6); Monocytes Percent Auto 6.1 % (2.6-8.5); Neutrophils Percent Auto 79.8 % (45.5-73.1); Platelet Count Result 269 k/mm3 (150-375); Red Blood Count 2.68 M/mm3 (4.2-5.4); Red Cell Distribution Width 15.6 % (11.5-14.5)
[2024-10-24 08:10] LABS: Alanine Aminotransferase 15 U/L (6-35); Albumin Level 2.7 g/dL (3.5-5.1); Alkaline Phosphatase 71 U/L (38-126); Anion Gap 6 mmol/L (4-12); Aspartate Amino Transferase 34 U/L (14-36); Bilirubin,Total 0.4 mg/dL (0.2-1.3); Blood Urea Nitrogen 37 mg/dL (7-17); CRP 5.7 mg/dL (<1.0); Calcium 8.6 mg/dL (8.4-10.2); Carbon Dioxide 22 mmol/L (22-30); Chloride 105 mmol/L (98-107); Estimated CRCL calculation 38 ml/min; Estimated Glomerular Filt Rate 51; Glucose 141 mg/dL (65-110); Phosphorus 3.5 mg/dL (2.5-4.5); Potassium 5.1 mmol/L (3.4-5.0); Sodium 133 mmol/L (137-145)
[2024-10-24 08:17] LABS: Glucose Point of Care 158 mg/dl (65-105)
[2024-10-24 08:29] LABS: Procalcitonin 0.2 ng/mL
[2024-10-24] MEDS: ROSUVASTATIN 20 MG TABLET PO (08:35)
[2024-10-24] MEDS: METOPROLOL SUCCINATE EXT REL 50 MG TABCR PO ×2 (08:35→21:31)
[2024-10-24] MEDS: PANTOPRAZOLE 40 MG TABLET PO (08:35)
[2024-10-24] MEDS: MAGNESIUM OXIDE 400 MG TABLET PO ×2 (08:35→17:31)
[2024-10-24] MEDS: SERTRALINE HCL 25 MG TABLET PO (08:35)
[2024-10-24] MEDS: AMIODARONE HCL 200 MG TABLET PO ×2 (08:35→17:31)
[2024-10-24] MEDS: DICYCLOMINE HCL 10 MG CAPSULE PO ×4 (08:35→21:30)
[2024-10-24] MEDS: INSULIN ASPART (*BKC) 100 UNITS/ML 8 UNITS SUB-Q ×3 (08:38→17:29)
--- NOTE | 2024-10-24 08:52 | PM.PNGS ---
Progress Note: A&P Assessment and Plan (1) Osteomyelitis: Qualifiers: Laterality: right Osteomyelitis location: foot Osteomyelitis type: chronic, with draining sinus Qualified Code(s): M86.471 - Chronic osteomyelitis with draining sinus, right ankle and foot Code(s): M86.9 - Osteomyelitis, unspecified Status: Acute Assessment and Plan: Second toe amputation wound healing appropriately. Wound cultures preop showing light growth Staph aureus, sensitivities pending. Patient feels better. Will get her postop shoe and start ambulation. (2) Insulin dependent type 2 diabetes mellitus: Code(s): E11.9 - Type 2 diabetes mellitus without complications; Z79.4 - intermediate (current) use of insulin Status: Chronic Subjective Subjective Date/Time Seen: 10/24/24 08:52 Post Op day: 2 Patient reports: no new complaints, feels better, pain is less, tolerating a regular diet, voiding w/o difficulty and afebrile Exam Const: General: cooperative, healthy appearing, comfortable, alert and awake Extrem: Right lower extremity: foot (Healing erythema at amputation site, looks good) Objective Data Vital Signs Vital Signs: Vital Signs - 24 hr 10/23/24 09:48 10/23/24 09:49 10/23/24 14:00 Temperature 36.3 C L Pulse Rate 86 86 81 Respiratory Rate 20 Blood Pressure 111/43 L Pulse Oximetry 98 Oxygen Delivery Oxygen Flow Rate 10/23/24 14:15 10/23/24 14:31 10/23/24 15:31 Temperature 36.3 C L 36.7 C 36.6 C Pulse Rate 81 82 80 Respiratory Rate 20 17 18 Blood Pressure 111/43 L 109/51 L 111/50 L Pulse Oximetry 98 93 94 Oxygen Delivery Oxygen Flow Rate 10/23/24 16:31 10/23/24 17:22 10/23/24 17:31 Temperature 36.7 C 36.4 C Pulse Rate 82 85 Respiratory Rate 18 17 Blood Pressure 114/54 L 118/50 L Pulse Oximetry 91 91 92 Oxygen Delivery Nasal Cannula Oxygen Flow Rate 0.5 10/23/24 17:35 10/23/24 18:45 10/23/24 20:00 Temperature Pulse Rate 85 85 Respiratory Rate 17 Blood Pressure Pulse Oximetry 92 92 Oxygen Delivery Room Air Room Air Oxygen Flow Rate 10/23/24 20:00 10/23/24 21:04 10/24/24 00:45 Temperature 36.5 C 36.5 C Pulse Rate 87 85 82 Respiratory Rate 16 16 Blood Pressure 128/48 L 120/50 L Pulse Oximetry 93 94 Oxygen Delivery Oxygen Flow Rate 10/24/24 06:00 Temperature 36.6 C Pulse Rate 82 Respiratory Rate 18 Blood Pressure 130/52 L Pulse Oximetry 96 Oxygen Delivery Oxygen Flow Rate Intake/Output Intake/Output: Intake & Output 10/21/24 10/22/24 10/23/24 10/24/24 23:59 23:59 23:59 23:59 Intake Total 1400 3540 4280 300 Output Total 3125 950 800 Balance 2374 807 6343 -500 Meds/Results Medications: Active Medications Generic Name Dose Route Start Last Admin Trade Name Freq PRN Reason Stop Dose Admin Acetaminophen 500 mg 10/22/24 14:27 Acetaminophen 500 Mg Tablet PO Q6H PRN Pain Rated 1-3 Amiodarone HCl 200 mg 10/22/24 08:00 10/24/24 08:35 Amiodarone Hcl 200 Mg Tablet PO 200 mg BIDWM [place] Administration Dextrose 12.5 gm 10/23/24 10:15 Dextrose 50% 25 Gm/50 Ml Syringe IV PUSH PRN PRN Hypoglycemia Protocol Dicyclomine HCl 10 mg 10/22/24 09:00 10/24/24 08:35 Dicyclomine Hcl 10 Mg Capsule PO 10 mg QID [place] Administration Enoxaparin Sodium 40 mg 10/23/24 09:00 10/23/24 08:43 Enoxaparin 40 Mg/0.4 Ml Syringe SUB-Q Not Given DAILY [facility] Fentanyl Citrate 25 mcg 10/22/24 14:27 Fentanyl Citrate Inj (*Crx) 100 Mcg/2 Ml Vial IV PUSH Q2H PRN Breakthrough Pain Rated 7-10 or NPO Glucagon 1 mg 10/23/24 10:15 Glucagon For Inj 1 Mg Vial IM PRN PRN Hypoglycemia Protocol Glucose 15 gm 10/23/24 10:15 Glucose Oral Gel 15 Gm Of Glucse In 37.5 Gm Tube PO PRN PRN Hypoglycemia Protocol Vancomycin HCl 1,250 mg in 250 mls @ 166.667 mls/hr 10/23/24 11:00 10/23/24 13:45 Vancomycin 1,250 Mg/Ns 250 Ml IVPB Infused Q36H [place] Infusion Ceftriaxone Sodium 2 gm in 100 mls @ 200 mls/hr 10/22/24 14:00 10/23/24 14:51 Rocephin 2 Gm/Ns 100 Ml IVPB Infused Q24H [place] Infusion Dextrose 1,000 mls @ 100 mls/hr 10/23/24 10:15 Dextrose 5% 1,000 Ml IVPB PRN PRN Hypoglycemia Protocol Insulin Aspart 4 - 8 units 10/23/24 12:00 10/24/24 08:36 Insulin Aspart (*Bkc) 100 Units/Ml SUB-Q Not Given TIDWM [place] Protocol Insulin Aspart 8 units 10/23/24 12:00 10/24/24 08:38 Insulin Aspart (*Bkc) 100 Units/Ml SUB-Q 8 units TIDWM [place] Administration Insulin Glargine 20 units 10/23/24 21:00 10/23/24 21:04 Insulin Glargine (*Bkc) 100 Units/Ml SUB-Q 20 units HS [place] Administration Magnesium Oxide 400 mg 10/22/24 09:00 10/24/24 08:35 Magnesium Oxide 400 Mg Tablet PO 400 mg BID [place] Administration Metoprolol Succinate 50 mg 10/22/24 09:00 10/24/24 08:35 Metoprolol Succinate Ext Rel 50 Mg Tabcr PO 50 mg Q12HR [place] Administration Metronidazole 500 mg 10/22/24 14:00 10/24/24 05:09 Metronidazole 500 Mg Tablet PO 500 mg Q8HR [place] Administration Oxycodone/Acetaminophen 0.5 tablet 10/22/24 14:27 Oxycodone/Acetaminophen (*Crx) 5-325 Mg Tablet PO Q4H PRN Pain Rated 4-6 Pantoprazole Sodium 40 mg 10/22/24 09:00 10/24/24 08:35 Pantoprazole 40 Mg Tablet PO 40 mg DAILY [place] Administration Rosuvastatin Calcium 20 mg 10/22/24 09:00 10/24/24 08:35 Rosuvastatin 20 Mg Tablet PO 20 mg DAILY [place] Administration Sertraline HCl 25 mg 10/22/24 09:00 10/24/24 08:35 Sertraline Hcl 25 Mg Tablet PO 25 mg DAILY [place] Administration Sodium Zirconium Cyclosilicate 10 gm 10/22/24 10:00 10/23/24 10:15 Sodium Zirconium Cyclosilicate 10 Gm Powd.Pack PO Not Given TID@1000,1500,2200 [place] Trazodone HCl 50 mg 10/22/24 21:00 10/23/24 21:04 Trazodone Hcl 50 Mg Tablet PO 50 mg HS [place] Administration Radiology Results: ITS Impressions Foot X-Ray 10/21/24 15:25 IMPRESSION: Significant soft tissue swelling with bony erosion the peripheral most portion of the distal phalanx of the second toe Chest X-Ray 10/23/24 20:13 IMPRESSION: No focal infiltrate or effusion. Labs Labs: Laboratory Results - last 24 hr 10/23/24 10/23/24 10/23/24 08:30 10:12 12:06 WBC RBC Hgb Hct MCV MCH MCHC RDW Plt Count MPV Immature Gran % (Auto) Neut % (Auto) Lymph % (Auto) [place] % (Auto) Eos % (Auto) Baso % (Auto) Lymph # (Auto) [place] # (Auto) Eos # (Auto) Baso # (Auto) Abs Immat Gran (auto) Absolute Neuts (auto) Absolute Nucleated RBC Nucleated RBC % Sodium Potassium Chloride Carbon Dioxide Anion Gap BUN Creatinine Estim Creat Clear Calc Estimated GFR Glucose POC Capillary Glucose 270 H 331 H Calcium Phosphorus Magnesium Total Bilirubin AST ALT Alkaline Phosphatase C-Reactive Protein Total Protein Albumin Procalcitonin Blood Type A Negative Antibody Screen Negative Crossmatch See Detail 10/23/24 10/23/24 10/23/24 16:48 19:58 21:02 WBC RBC Hgb 9.0 L Hct 28.3 L MCV MCH MCHC RDW Plt Count MPV Immature Gran % (Auto) Neut % (Auto) Lymph % (Auto) [place] % (Auto) Eos % (Auto) Baso % (Auto) Lymph # (Auto) [place] # (Auto) Eos # (Auto) Baso # (Auto) Abs Immat Gran (auto) Absolute Neuts (auto) Absolute Nucleated RBC Nucleated RBC % Sodium Potassium Chloride Carbon Dioxide Anion Gap BUN Creatinine Estim Creat Clear Calc Estimated GFR Glucose POC Capillary Glucose 156 H 191 H Calcium Phosphorus Magnesium Total Bilirubin AST ALT Alkaline Phosphatase C-Reactive Protein Total Protein Albumin Procalcitonin Blood Type Antibody Screen Crossmatch 10/24/24 10/24/24 07:24 08:05 WBC 15.0 H RBC 2.68 L Hgb 8.3 L Hct 26.0 L MCV 97.0 MCH 31.0 MCHC 31.9 L RDW 15.6 H Plt Count 269 MPV 9.3 Immature Gran % (Auto) 1.3 H Neut % (Auto) 79.8 H Lymph % (Auto) 11.7 L [place] % (Auto) 6.1 Eos % (Auto) 0.5 Baso % (Auto) 0.6 Lymph # (Auto) 1.75 [place] # (Auto) 0.9 H Eos # (Auto) 0.1 Baso # (Auto) 0.1 Abs Immat Gran (auto) 0.19 H Absolute Neuts (auto) 12.0 H Absolute Nucleated RBC 0.000 Nucleated RBC % 0.0 Sodium 133 L Potassium 5.1 H Chloride 105 Carbon Dioxide 22 Anion Gap 6 BUN 37 H Creatinine 1.07 H Estim Creat Clear Calc 38 Estimated GFR 51 L Glucose 141 H POC Capillary Glucose 158 H Calcium 8.6 Phosphorus 3.5 Magnesium 2.0 Total Bilirubin 0.4 AST 34 ALT 15 Alkaline Phosphatase 71 C-Reactive Protein 5.7 H Total Protein 6.0 L Albumin 2.7 L Procalcitonin 0.2 Blood Type Antibody Screen Crossmatch wound cultures showing light growth Staph aureus, sensitivities pending
[2024-10-24 09:11] LABS: Erythrocyte Sedimentation Rate > 140 mm/hr (0-20)
[2024-10-24 12:01] LABS: Glucose Point of Care 194 mg/dl (65-105)
--- NOTE | 2024-10-24 13:41 | P.PNIM_ITS ---
Progress Note: A&P Assessment and Plan (1) Essential hypertension: Code(s): I10 - Essential (primary) hypertension Status: Acute (2) Coronary artery disease: Onset Date: 11/04/17 Code(s): I25.10 - Atherosclerotic heart disease of [place] coronary artery without angina pectoris Status: Acute (3) Hyperlipidemia: Code(s): E78.5 - Hyperlipidemia, unspecified Status: Acute (4) Type 2 diabetes mellitus with hyperglycemia, with long-term current use of insulin: Code(s): E11.65 - Type 2 diabetes mellitus with hyperglycemia; Z79.4 - prison (current) use of insulin Status: Acute (5) Diabetic foot ulcer: Code(s): E11.621 - Type 2 diabetes mellitus with foot ulcer; L97.509 - Non-pressure chronic ulcer of other part of unspecified foot with unspecified severity Status: Chronic Plan A 69-year-old female who presents to the ER from nursing facility with concerns for infected 2nd toe right foot. She noticed redness and sore spot in the beginning of this month. She went to see primary provider with been watching the wound. Continued worsening she was sent to the ER for evaluation. She denies any fever chills leg swelling calf pain. She does have history of diabetes. He had recent complicated course after CABG in May followed by bowel ischemia leading to i.e. ostomy placement. She has been in rehab since then. Patient is not on any antibiotics currently. On ED evaluation her vitals were stable she was afebrile. EKG showed normal sinus rhythm with no signs of acute ischemia. Laboratory evaluation revealed leukocytosis of 15.4 hemoglobin of 8 which is around baseline sodium of 126 potassium 6.3 bicarb 17 BUN 69 creatinine 1.7 which is higher than her baseline creatinine level. CRP is 3.2. Urinalysis revealed 51-100 WBC 3 +leukocyte esterase. Patient received calcium gluconate IV insulin dextrose Kayexalate and albuterol for hyperkalemia and was started on IV fluids. X-ray of the right foot was obtained which showed significant soft tissue swelling with bony erosions the peripheral most portion of the distal phalanx of the 2nd toe consistent with osteomyelitis. Patient has been started on IV vancomycin and ciprofloxacin for osteomyelitis. Blood cultures were obtained. General surgery has been consulted. Purulent discharge comes from the toe infection site on evaluation. She underwent right 2nd toe amputation 10/22/2024. Will continue IV antibiotics which was switched to ceftriaxone vancomycin and metronidazole. Her blood culture came back positive for Gram-positive cocci in chains Which is identified as Streptococcus. Sensitive to ceftriaxone. Wound cultures growing Staphylococcus aureus sensitivity pending. Will continue current antibiotics. Metronidazole for possible concurrent anaerobic infection Dressing changes per General surgery. Diabetic toe infection with osteomyelitis of phalanx MILENA creatinine 1.7. Baseline creatinine 0.9 IV fluid to continue will hold Lasix. Renal failure resolved Acute on Chronic anemia hemoglobin down to 6.5 will transfuse 1 unit of PRBC today. Will stop IV fluid. Aspirin Plavix on hold Hyponatremia mild on admission 126. Improved UTI on ceftriaxone. Urine culture mixed genital alan Hyperkalemia treated. Resolved Coronary artery disease status post CABG May of 2024 Hypertension Hyperlipidemia Status post partial colectomy and ostomy placement June 2024. Peptic ulcer disease Type 2 diabetes on insulin A1c at 8 add basal insulin DVTprophylaxis SCDs Lovenox which will be held due to anemia Code status full code Subjective Date/time seen: 10/24/24 13:41 Interval history: patient was mildly hypoxic yesterday for short period time. She was placed on oxygen. Chest x-ray was clear. Received transfusion. She feels good no shortness of breath chest pain. Review of Systems Review of Systems: All systems reviewed & are unremarkable except as noted in HPI and below Exam Narrative: General: Alert, awake, afebrile, in no acute distress. HEENT: PERRL, no rhinorrhea, no post nasal drip, oropharynx clear. Neck: Trachea midline, no JVD, no lymphadenopathy. Cardiovascular: Regular rate and rhythm, no murmurs, rubs or gallops, no peripheral edema. Respiratory: Clear to auscultation bilaterally, no tachypnea, no wheezing, no rhonchi, no rubs, no respiratory distress. Abdomen: Soft, nontender, nondistended, no rebound, no guarding, no peritoneal signs. Musculoskeletal: Right foot with dressing in place Skin: No rashes or petechia, no signs of infection. Psychiatric: Alert and oriented, normal behavior and judgment for situation. Neurological: Alert and oriented to person, place, and time. Follows all commands. No focal deficits, speech is clear and fluent. Objective Data Vital Signs Vital Signs: Vital Signs - 24 hr 10/23/24 14:00 10/23/24 14:15 10/23/24 14:31 Temperature 97.4 F L 97.4 F L 98.1 F Pulse Rate 81 81 82 Respiratory Rate 20 20 17 Blood Pressure 111/43 L 111/43 L 109/51 L Pulse Oximetry 98 98 93 Oxygen Delivery Oxygen Flow Rate 10/23/24 15:31 10/23/24 16:31 10/23/24 17:22 Temperature 97.9 F 98.0 F Pulse Rate 80 82 Respiratory Rate 18 18 Blood Pressure 111/50 L 114/54 L Pulse Oximetry 94 91 91 Oxygen Delivery Nasal Cannula Oxygen Flow Rate 0.5 10/23/24 17:31 10/23/24 17:35 10/23/24 18:45 Temperature 97.6 F Pulse Rate 85 85 Respiratory Rate 17 Blood Pressure 118/50 L Pulse Oximetry 92 92 Oxygen Delivery Room Air Oxygen Flow Rate 10/23/24 20:00 10/23/24 20:00 10/23/24 21:04 Temperature 97.7 F Pulse Rate 85 87 85 Respiratory Rate 17 16 Blood Pressure 128/48 L Pulse Oximetry 92 93 Oxygen Delivery Room Air Oxygen Flow Rate 10/24/24 00:45 10/24/24 06:00 10/24/24 08:00 Temperature 97.7 F 97.8 F 98.2 F Pulse Rate 82 82 79 Respiratory Rate 16 18 18 Blood Pressure 120/50 L 130/52 L 125/48 L Pulse Oximetry 94 96 94 Oxygen Delivery Oxygen Flow Rate 10/24/24 08:00 10/24/24 12:00 Temperature 98.2 F Pulse Rate 79 76 Respiratory Rate 18 18 Blood Pressure 127/45 L Pulse Oximetry 94 96 Oxygen Delivery Room Air Oxygen Flow Rate Intake/Output Intake/Output: Intake & Output 10/21/24 10/22/24 10/23/24 10/24/24 23:59 23:59 23:59 23:59 Intake Total 1400 3540 4280 720 Output Total 3125 950 800 Balance 3846 784 0651 -80 Meds/Results Medications: Active Medications Generic Name Dose Route Start Last Admin Trade Name Freq PRN Reason Stop Dose Admin Acetaminophen 500 mg 10/22/24 14:27 Acetaminophen 500 Mg Tablet PO Q6H PRN Pain Rated 1-3 Amiodarone HCl 200 mg 10/22/24 08:00 10/24/24 08:35 Amiodarone Hcl 200 Mg Tablet PO 200 mg BIDWM [place] Administration Dextrose 12.5 gm 10/23/24 10:15 Dextrose 50% 25 Gm/50 Ml Syringe IV PUSH PRN PRN Hypoglycemia Protocol Dicyclomine HCl 10 mg 10/22/24 09:00 10/24/24 12:17 Dicyclomine Hcl 10 Mg Capsule PO 10 mg QID [place] Administration Enoxaparin Sodium 40 mg 10/23/24 09:00 10/23/24 08:43 Enoxaparin 40 Mg/0.4 Ml Syringe SUB-Q Not Given DAILY [facility] Fentanyl Citrate 25 mcg 10/22/24 14:27 Fentanyl Citrate Inj (*Crx) 100 Mcg/2 Ml Vial IV PUSH Q2H PRN Breakthrough Pain Rated 7-10 or NPO Glucagon 1 mg 10/23/24 10:15 Glucagon For Inj 1 Mg Vial IM PRN PRN Hypoglycemia Protocol Glucose 15 gm 10/23/24 10:15 Glucose Oral Gel 15 Gm Of Glucse In 37.5 Gm Tube PO PRN PRN Hypoglycemia Protocol Vancomycin HCl 1,250 mg in 250 mls @ 166.667 mls/hr 10/23/24 11:00 10/23/24 13:45 Vancomycin 1,250 Mg/Ns 250 Ml IVPB Infused Q36H [place] Infusion Ceftriaxone Sodium 2 gm in 100 mls @ 200 mls/hr 10/22/24 14:00 10/23/24 14:51 Rocephin 2 Gm/Ns 100 Ml IVPB Infused Q24H [place] Infusion Dextrose 1,000 mls @ 100 mls/hr 10/23/24 10:15 Dextrose 5% 1,000 Ml IVPB PRN PRN Hypoglycemia Protocol Insulin Aspart 4 - 8 units 10/23/24 12:00 10/24/24 12:16 Insulin Aspart (*Bkc) 100 Units/Ml SUB-Q Not Given TIDWM [place] Protocol Insulin Aspart 8 units 10/23/24 12:00 10/24/24 12:16 Insulin Aspart (*Bkc) 100 Units/Ml SUB-Q 8 units TIDWM [place] Administration Insulin Glargine 20 units 10/23/24 21:00 10/23/24 21:04 Insulin Glargine (*Bkc) 100 Units/Ml SUB-Q 20 units HS [place] Administration Magnesium Oxide 400 mg 10/22/24 09:00 10/24/24 08:35 Magnesium Oxide 400 Mg Tablet PO 400 mg BID [place] Administration Metoprolol Succinate 50 mg 10/22/24 09:00 10/24/24 08:35 Metoprolol Succinate Ext Rel 50 Mg Tabcr PO 50 mg Q12HR [place] Administration Metronidazole 500 mg 10/22/24 14:00 10/24/24 05:09 Metronidazole 500 Mg Tablet PO 500 mg Q8HR [place] Administration Oxycodone/Acetaminophen 0.5 tablet 10/22/24 14:27 Oxycodone/Acetaminophen (*Crx) 5-325 Mg Tablet PO Q4H PRN Pain Rated 4-6 Pantoprazole Sodium 40 mg 10/22/24 09:00 10/24/24 08:35 Pantoprazole 40 Mg Tablet PO 40 mg DAILY [facility] Administration Rosuvastatin Calcium 20 mg 10/22/24 09:00 10/24/24 08:35 Rosuvastatin 20 Mg Tablet PO 20 mg DAILY [place] Administration Sertraline HCl 25 mg 10/22/24 09:00 10/24/24 08:35 Sertraline Hcl 25 Mg Tablet PO 25 mg DAILY [place] Administration Sodium Zirconium Cyclosilicate 10 gm 10/22/24 10:00 10/23/24 10:15 Sodium Zirconium Cyclosilicate 10 Gm Powd.Pack PO Not Given TID@1000,1500,2200 [facility] Trazodone HCl 50 mg 10/22/24 21:00 10/23/24 21:04 Trazodone Hcl 50 Mg Tablet PO 50 mg HS [place] Administration Radiology Results: ITS Impressions Foot X-Ray 10/21/24 15:25 IMPRESSION: Significant soft tissue swelling with bony erosion the peripheral most portion of the distal phalanx of the second toe Chest X-Ray 10/23/24 20:13 IMPRESSION: No focal infiltrate or effusion. Labs Labs: Laboratory Results - last 24 hr 10/23/24 10/23/24 10/23/24 10:12 16:48 19:58 WBC RBC Hgb 9.0 L Hct 28.3 L MCV MCH MCHC RDW Plt Count MPV Immature Gran % (Auto) Neut % (Auto) Lymph % (Auto) [place] % (Auto) Eos % (Auto) Baso % (Auto) Lymph # (Auto) [place] # (Auto) Eos # (Auto) Baso # (Auto) Abs Immat Gran (auto) Absolute Neuts (auto) Absolute Nucleated RBC Nucleated RBC % ESR Sodium Potassium Chloride Carbon Dioxide Anion Gap BUN Creatinine Estim Creat Clear Calc Estimated GFR Glucose POC Capillary Glucose 156 H Calcium Phosphorus Magnesium Total Bilirubin AST ALT Alkaline Phosphatase C-Reactive Protein Total Protein Albumin Procalcitonin Blood Type A Negative Antibody Screen Negative Crossmatch See Detail 10/23/24 10/24/24 10/24/24 21:02 07:24 08:05 WBC 15.0 H RBC 2.68 L Hgb 8.3 L Hct 26.0 L MCV 97.0 MCH 31.0 MCHC 31.9 L RDW 15.6 H Plt Count 269 MPV 9.3 Immature Gran % (Auto) 1.3 H Neut % (Auto) 79.8 H Lymph % (Auto) 11.7 L [place] % (Auto) 6.1 Eos % (Auto) 0.5 Baso % (Auto) 0.6 Lymph # (Auto) 1.75 [place] # (Auto) 0.9 H Eos # (Auto) 0.1 Baso # (Auto) 0.1 Abs Immat Gran (auto) 0.19 H Absolute Neuts (auto) 12.0 H Absolute Nucleated RBC 0.000 Nucleated RBC % 0.0 ESR > 140 H Sodium 133 L Potassium 5.1 H Chloride 105 Carbon Dioxide 22 Anion Gap 6 BUN 37 H Creatinine 1.07 H Estim Creat Clear Calc 38 Estimated GFR 51 L Glucose 141 H POC Capillary Glucose 191 H 158 H Calcium 8.6 Phosphorus 3.5 Magnesium 2.0 Total Bilirubin 0.4 AST 34 ALT 15 Alkaline Phosphatase 71 C-Reactive Protein 5.7 H Total Protein 6.0 L Albumin 2.7 L Procalcitonin 0.2 Blood Type Antibody Screen Crossmatch 10/24/24 11:43 WBC RBC Hgb Hct MCV MCH MCHC RDW Plt Count MPV Immature Gran % (Auto) Neut % (Auto) Lymph % (Auto) [place] % (Auto) Eos % (Auto) Baso % (Auto) Lymph # (Auto) [place] # (Auto) Eos # (Auto) Baso # (Auto) Abs Immat Gran (auto) Absolute Neuts (auto) Absolute Nucleated RBC Nucleated RBC % ESR Sodium Potassium Chloride Carbon Dioxide Anion Gap BUN Creatinine Estim Creat Clear Calc Estimated GFR Glucose POC Capillary Glucose 194 H Calcium Phosphorus Magnesium Total Bilirubin AST ALT Alkaline Phosphatase C-Reactive Protein Total Protein Albumin Procalcitonin Blood Type Antibody Screen Crossmatch
[2024-10-24] MEDS: cefTRIAXone 2 GM/NS 100 ML 2 GM/100 ML BAG IVPB (14:50)
[2024-10-24 16:29] LABS: Glucose Point of Care 175 mg/dl (65-105)
[2024-10-24 21:15] LABS: Glucose Point of Care 222 mg/dl (65-105)
[2024-10-24] MEDS: traZODone HCL 50 MG TABLET PO (21:31)
[2024-10-24] MEDS: INSULIN GLARGINE (*BKC) 100 UNITS/ML 20 UNITS SUB-Q (21:32)
[2024-10-24 22:41] LABS: Vancomycin Trough 10.7 ug/mL (10.0-20.0)
[2024-10-24] MEDS: VANCOMYCIN 1,250 MG/NS 250 ML 1,250 MG/250 ML BAG 166.67 MG IVPB (23:16)
[2024-10-25 03:27] VITALS: BP 120/49; PULSE 69; RESP 12; TEMP 36.4; O2SAT 98
[2024-10-25] MEDS: metroNIDAZOLE 500 MG TABLET PO (05:52)
[2024-10-25 06:27] LABS: Basophils Absolute Auto 0.1 K/mm3 (0.0-0.1); Basophils Percent Auto 0.5 % (0.2-1.2); Eosinophils Absolute Auto 0.2 K/mm3 (0-0.3); Hematocrit 25.6 % (37.0-47.0); Immature Granulocyte Absolute 0.09 K/mm3 (0.00-0.031); Immature Granulocyte Percent A 0.8 % (0-0.5); Lymphocytes Absolute Auto 1.37 K/mm3 (0.9-3.2); Lymphocytes Percent Auto 12.4 % (18.3-44.2); Mean Corpuscular HGB Conc 31.3 g/dl (32-36); Mean Corpuscular Hemoglobin 30.4 pg (26-34); Mean Corpuscular Volume 97.3 fl (80-100); Mean Platelet Volume 8.8 fl (7.4-10.4); Monocytes Absolute Auto 0.7 K/mm3 (0.1-0.6); Neutrophils Absolute Auto 8.7 K/mm3 (1.3-6.7); Neutrophils Percent Auto 78.3 % (45.5-73.1); Platelet Count Result 221 k/mm3 (150-375); Red Blood Count 2.63 M/mm3 (4.2-5.4); White Blood Count 11.1 K/mm3 (4.5-10.0)
[2024-10-25 06:42] LABS: Alanine Aminotransferase 13 U/L (6-35); Albumin Level 2.5 g/dL (3.5-5.1); Alkaline Phosphatase 68 U/L (38-126); Anion Gap 6 mmol/L (4-12); Aspartate Amino Transferase 20 U/L (14-36); Bilirubin,Total 0.5 mg/dL (0.2-1.3); Blood Urea Nitrogen 31 mg/dL (7-17); Calcium 8.2 mg/dL (8.4-10.2); Carbon Dioxide 21 mmol/L (22-30); Chloride 105 mmol/L (98-107); Estimated CRCL calculation 43 ml/min; Estimated Glomerular Filt Rate 58; Glucose 198 mg/dL (65-110); Magnesium 2.1 mg/dL (1.6-2.3); Phosphorus 3.1 mg/dL (2.5-4.5); Potassium 4.7 mmol/L (3.4-5.0); Sodium 132 mmol/L (137-145)
[2024-10-25] MEDS: AMIODARONE HCL 200 MG TABLET PO (07:57)
[2024-10-25] MEDS: DICYCLOMINE HCL 10 MG CAPSULE PO ×3 (07:57→20:58)
[2024-10-25] MEDS: MAGNESIUM OXIDE 400 MG TABLET PO (07:57)
[2024-10-25] MEDS: METOPROLOL SUCCINATE EXT REL 50 MG TABCR PO ×2 (07:57→20:57)
[2024-10-25] MEDS: PANTOPRAZOLE 40 MG TABLET PO (07:57)
[2024-10-25] MEDS: ROSUVASTATIN 20 MG TABLET PO (07:57)
[2024-10-25] MEDS: ENOXAPARIN 40 MG/0.4 ML SYRINGE SUB-Q (07:57)
[2024-10-25] MEDS: SERTRALINE HCL 25 MG TABLET PO (07:58)
[2024-10-25 08:00] VITALS: BP 113/51; PULSE 70; PULSE 72; RESP 16; TEMP 36.8; O2SAT 92; O2SAT 97
[2024-10-25] MEDS: INSULIN ASPART (*BKC) 100 UNITS/ML 8 UNITS SUB-Q ×2 (08:05→12:33)
[2024-10-25 08:17] LABS: Glucose Point of Care 178 mg/dl (65-105)
--- NOTE | 2024-10-25 11:15 | PCNFU ---
Nutrition Follow-Up Complete: Unintentional weight loss related to loss of appetite as evidenced by 17% weight loss/6 months Goal:Diet orders Improve PO intake to at least 75% when diet is advanced Pt meeting goal. Continue with same goal Pt current nutrition is Diabetic consistent carb. Nutrition recommendation: Continue with current plan of care Last recorded weight is 70.7 kg. Bowel Motility: +BM 10/25 Labs Reviewed: Hgb:8.0, HCT:25.6, Alb:2.5, NA:132, BUN:31, Glu:198 Meds Noted: insulin Skin: toe amputation Additional Notes: Pt on a diabetic diet, good appetite and intake charted at 75-100% at this time. Pt reports weight loss was following heart surgery and she is happy with her current wt as it is more appropriate for her height. Encourage good po intake. Monitoring diet orders, weights, labs, intakes, skin, plan of care Follow up in 7 days
[2024-10-25 11:51] VITALS: BP 122/46; PULSE 70; RESP 16; TEMP 36.8; O2SAT 97
[2024-10-25 12:03] LABS: Glucose Point of Care 186 mg/dl (65-105)
--- NOTE | 2024-10-25 12:11 | PM.IMPN ---
Progress Note: A&P Assessment and Plan (1) Essential hypertension: Code(s): I10 - Essential (primary) hypertension Status: Acute (2) Coronary artery disease: Onset Date: 11/04/17 Code(s): I25.10 - Atherosclerotic heart disease of [place] coronary artery without angina pectoris Status: Acute (3) Hyperlipidemia: Code(s): E78.5 - Hyperlipidemia, unspecified Status: Acute (4) Type 2 diabetes mellitus with hyperglycemia, with long-term current use of insulin: Code(s): E11.65 - Type 2 diabetes mellitus with hyperglycemia; Z79.4 - detention (current) use of insulin Status: Acute (5) Diabetic foot ulcer: Code(s): E11.621 - Type 2 diabetes mellitus with foot ulcer; L97.509 - Non-pressure chronic ulcer of other part of unspecified foot with unspecified severity Status: Chronic Plan A 69-year-old female who presents to the ER from nursing facility with concerns for infected 2nd toe right foot. She noticed redness and sore spot in the beginning of this month. She went to see primary provider with been watching the wound. Continued worsening she was sent to the ER for evaluation. She denies any fever chills leg swelling calf pain. She does have history of diabetes. He had recent complicated course after CABG in May followed by bowel ischemia leading to i.e. ostomy placement. She has been in rehab since then. Patient is not on any antibiotics currently. On ED evaluation her vitals were stable she was afebrile. EKG showed normal sinus rhythm with no signs of acute ischemia. Laboratory evaluation revealed leukocytosis of 15.4 hemoglobin of 8 which is around baseline sodium of 126 potassium 6.3 bicarb 17 BUN 69 creatinine 1.7 which is higher than her baseline creatinine level. CRP is 3.2. Urinalysis revealed 51-100 WBC 3 +leukocyte esterase. Patient received calcium gluconate IV insulin dextrose Kayexalate and albuterol for hyperkalemia and was started on IV fluids. X-ray of the right foot was obtained which showed significant soft tissue swelling with bony erosions the peripheral most portion of the distal phalanx of the 2nd toe consistent with osteomyelitis. Patient has been started on IV vancomycin and ciprofloxacin for osteomyelitis. Blood cultures were obtained. General surgery has been consulted. Purulent discharge comes from the toe infection site on evaluation. She underwent right 2nd toe amputation 10/22/2024. Will continue IV antibiotics which was switched to ceftriaxone vancomycin and metronidazole. Her blood culture came back positive for Gram-positive cocci in chains Which is identified as Streptococcus. Sensitive to ceftriaxone. Wound cultures growing Staphylococcus aureus sensitivity pending. Will continue current antibiotics. Metronidazole for possible concurrent anaerobic infection Dressing changes per General surgery. Diabetic toe infection with osteomyelitis of phalanx status post toe amputation culture MRSA bacteremia with Streptococcus MILENA creatinine 1.7. Baseline creatinine 0.9 IV fluid to continue will hold Lasix. Renal failure resolved Acute on Chronic anemia hemoglobin down to 6.5 status. IV fluids. Aspirin Plavix on hold Hyponatremia mild on admission 126. Improved UTI on ceftriaxone. Urine culture mixed genital alan Hyperkalemia treated. Resolved Coronary artery disease status post CABG May of 2024 Hypertension Hyperlipidemia Status post partial colectomy and ostomy placement June 2024. Peptic ulcer disease Type 2 diabetes on insulin A1c at 8. Add basal insulin DVTprophylaxis SCDs Lovenox which will be held due to anemia Code status full code PT OT to see Subjective Date/time seen: 10/25/24 12:11 Interval history: No overnight events. Feels well. Has not work with therapy yet. Labs reviewed. Review of Systems Review of Systems: All systems reviewed & are unremarkable except as noted in HPI and below Exam Narrative: General: Alert, awake, afebrile, in no acute distress. HEENT: PERRL, no rhinorrhea, no post nasal drip, oropharynx clear. Neck: Trachea midline, no JVD, no lymphadenopathy. Cardiovascular: Regular rate and rhythm, no murmurs, rubs or gallops, no peripheral edema. Respiratory: Clear to auscultation bilaterally, no tachypnea, no wheezing, no rhonchi, no rubs, no respiratory distress. Abdomen: Soft, nontender, nondistended, no rebound, no guarding, no peritoneal signs. Musculoskeletal: Right foot with dressing in place Skin: No rashes or petechia, no signs of infection. Psychiatric: Alert and oriented, normal behavior and judgment for situation. Neurological: Alert and oriented to person, place, and time. Follows all commands. No focal deficits, speech is clear and fluent. Objective Data Vital Signs Vital Signs: Vital Signs - 24 hr 10/24/24 16:00 10/24/24 19:37 10/24/24 21:31 Temperature 98 F 98.1 F Pulse Rate 75 78 80 Respiratory Rate 18 14 Blood Pressure 113/49 L 145/44 H Pulse Oximetry 96 99 10/24/24 23:52 10/25/24 03:27 10/25/24 08:00 Temperature 98.3 F 97.5 F L 98.3 F Pulse Rate 74 69 72 Respiratory Rate 14 12 16 Blood Pressure 120/39 L 120/49 L 113/51 L Pulse Oximetry 97 98 92 Intake/Output Intake/Output: Intake & Output 10/22/24 10/23/24 10/24/24 10/25/24 23:59 23:59 23:59 23:59 Intake Total 3540 4280 2814 375 Output Total 3125 950 2590 300 Balance 415 3330 224 75 Meds/Results Medications: Active Medications Generic Name Dose Route Start Last Admin Trade Name Freq PRN Reason Stop Dose Admin Acetaminophen 500 mg 10/22/24 14:27 Acetaminophen 500 Mg Tablet PO Q6H PRN Pain Rated 1-3 Amiodarone HCl 200 mg 10/22/24 08:00 10/25/24 07:57 Amiodarone Hcl 200 Mg Tablet PO 200 mg BIDWM [place] Administration Dextrose 12.5 gm 10/23/24 10:15 Dextrose 50% 25 Gm/50 Ml Syringe IV PUSH PRN PRN Hypoglycemia Protocol Dicyclomine HCl 10 mg 10/22/24 09:00 10/25/24 07:57 Dicyclomine Hcl 10 Mg Capsule PO 10 mg QID [facility] Administration Enoxaparin Sodium 40 mg 10/23/24 09:00 10/25/24 07:57 Enoxaparin 40 Mg/0.4 Ml Syringe SUB-Q 40 mg DAILY [facility] Administration Fentanyl Citrate 25 mcg 10/22/24 14:27 Fentanyl Citrate Inj (*Crx) 100 Mcg/2 Ml Vial IV PUSH Q2H PRN Breakthrough Pain Rated 7-10 or NPO Glucagon 1 mg 10/23/24 10:15 Glucagon For Inj 1 Mg Vial IM PRN PRN Hypoglycemia Protocol Glucose 15 gm 10/23/24 10:15 Glucose Oral Gel 15 Gm Of Glucse In 37.5 Gm Tube PO PRN PRN Hypoglycemia Protocol Ceftriaxone Sodium 2 gm in 100 mls @ 200 mls/hr 10/22/24 14:00 10/24/24 14:50 Rocephin 2 Gm/Ns 100 Ml IVPB 200 mls/hr Q24H [facility] Administration Dextrose 1,000 mls @ 100 mls/hr 10/23/24 10:15 Dextrose 5% 1,000 Ml IVPB PRN PRN Hypoglycemia Protocol Vancomycin HCl 1,250 mg in 250 mls @ 166.667 mls/hr 10/25/24 00:00 10/24/24 23:16 Vancomycin 1,250 Mg/Ns 250 Ml IVPB 166.67 mls/hr Q24H [facility] Administration Insulin Aspart 4 - 8 units 10/23/24 12:00 10/24/24 17:31 Insulin Aspart (*Bkc) 100 Units/Ml SUB-Q Not Given TIDWM [place] Protocol Insulin Aspart 8 units 10/23/24 12:00 10/25/24 08:05 Insulin Aspart (*Bkc) 100 Units/Ml SUB-Q 8 units TIDWM [place] Administration Insulin Glargine 20 units 10/23/24 21:00 10/24/24 21:32 Insulin Glargine (*Bkc) 100 Units/Ml SUB-Q 20 units HS [facility] Administration Magnesium Oxide 400 mg 10/22/24 09:00 10/25/24 07:57 Magnesium Oxide 400 Mg Tablet PO 400 mg BID [facility] Administration Metoprolol Succinate 50 mg 10/22/24 09:00 10/25/24 07:57 Metoprolol Succinate Ext Rel 50 Mg Tabcr PO 50 mg Q12HR [facility] Administration Metronidazole 500 mg 10/22/24 14:00 10/25/24 05:52 Metronidazole 500 Mg Tablet PO 500 mg Q8HR [facility] Administration Oxycodone/Acetaminophen 0.5 tablet 10/22/24 14:27 Oxycodone/Acetaminophen (*Crx) 5-325 Mg Tablet PO Q4H PRN Pain Rated 4-6 Pantoprazole Sodium 40 mg 10/22/24 09:00 10/25/24 07:57 Pantoprazole 40 Mg Tablet PO 40 mg DAILY [facility] Administration Rosuvastatin Calcium 20 mg 10/22/24 09:00 10/25/24 07:57 Rosuvastatin 20 Mg Tablet PO 20 mg DAILY [facility] Administration Sertraline HCl 25 mg 10/22/24 09:00 10/25/24 07:58 Sertraline Hcl 25 Mg Tablet PO 25 mg DAILY [facility] Administration Sodium Zirconium Cyclosilicate 10 gm 10/22/24 10:00 10/23/24 10:15 Sodium Zirconium Cyclosilicate 10 Gm Powd.Pack PO Not Given TID@1000,1500,2200 [facility] Trazodone HCl 50 mg 10/22/24 21:00 10/24/24 21:31 Trazodone Hcl 50 Mg Tablet PO 50 mg HS [facility] Administration Radiology Results: ITS Impressions Foot X-Ray 10/21/24 15:25 IMPRESSION: Significant soft tissue swelling with bony erosion the peripheral most portion of the distal phalanx of the second toe Chest X-Ray 10/23/24 20:13 IMPRESSION: No focal infiltrate or effusion. Labs Labs: Laboratory Results - last 24 hr 10/24/24 10/24/24 10/24/24 16:27 19:47 22:12 WBC RBC Hgb Hct MCV MCH MCHC RDW Plt Count MPV Immature Gran % (Auto) Neut % (Auto) Lymph % (Auto) [place] % (Auto) Eos % (Auto) Baso % (Auto) Lymph # (Auto) [place] # (Auto) Eos # (Auto) Baso # (Auto) Abs Immat Gran (auto) Absolute Neuts (auto) Absolute Nucleated RBC Nucleated RBC % Sodium Potassium Chloride Carbon Dioxide Anion Gap BUN Creatinine Estim Creat Clear Calc Estimated GFR Glucose POC Capillary Glucose 175 H 222 H Calcium Phosphorus Magnesium Total Bilirubin AST ALT Alkaline Phosphatase Total Protein Albumin Vancomycin Trough 10.7 10/25/24 10/25/24 10/25/24 06:20 07:58 11:56 WBC 11.1 H RBC 2.63 L Hgb 8.0 L Hct 25.6 L MCV 97.3 MCH 30.4 MCHC 31.3 L RDW 15.0 H Plt Count 221 MPV 8.8 Immature Gran % (Auto) 0.8 H Neut % (Auto) 78.3 H Lymph % (Auto) 12.4 L [place] % (Auto) 6.0 Eos % (Auto) 2.0 Baso % (Auto) 0.5 Lymph # (Auto) 1.37 [place] # (Auto) 0.7 H Eos # (Auto) 0.2 Baso # (Auto) 0.1 Abs Immat Gran (auto) 0.09 H Absolute Neuts (auto) 8.7 H Absolute Nucleated RBC 0.000 Nucleated RBC % 0.0 Sodium 132 L Potassium 4.7 Chloride 105 Carbon Dioxide 21 L Anion Gap 6 BUN 31 H Creatinine 0.95 Estim Creat Clear Calc 43 Estimated GFR 58 L Glucose 198 H POC Capillary Glucose 178 H 186 H Calcium 8.2 L Phosphorus 3.1 Magnesium 2.1 Total Bilirubin 0.5 AST 20 ALT 13 Alkaline Phosphatase 68 Total Protein 6.0 L Albumin 2.5 L Vancomycin Trough
--- NOTE | 2024-10-25 16:18 | PM.PNGS ---
Progress Note: A&P Assessment and Plan (1) Osteomyelitis: Qualifiers: Laterality: right Osteomyelitis location: foot Osteomyelitis type: chronic, with draining sinus Qualified Code(s): M86.471 - Chronic osteomyelitis with draining sinus, right ankle and foot Code(s): M86.9 - Osteomyelitis, unspecified Status: Acute Assessment and Plan: Second toe amputation wound healing appropriately. Wound cultures showing MRSA with sensitivities resulted. Continue to use postop shoe with ambulation. Encouraged heel touch weight-bearing of the right lower extremity. Okay from a surgical standpoint to discharge the patient on Bactrim for 7 days and follow up with Dr. Hernadez in our office in 2 weeks. (2) Insulin dependent type 2 diabetes mellitus: Code(s): E11.9 - Type 2 diabetes mellitus without complications; Z79.4 - skilled nursing (current) use of insulin Status: Chronic Plan I have discussed the patient's case and plan of care with Dr. Hernadez. Subjective Subjective Date/Time Seen: 10/25/24 16:18 Post Op day: 3 (Right second toe amputation) Patient reports: feels better, tolerating a regular diet, flatus, bowel movement and afebrile Interval history: No specific complaints. Denies any pain in her right foot. She has a walking shoe and has done a transfer to the bedside commode, but has not ambulated. No specific complaints at this time. Exam Const: General: comfortable and no acute distress Orientation/consciousness: patient oriented x3 Extrem: Right lower extremity: foot (Healing erythema at amputation site, skin well approximated, no drainage) Details: normal capillary refill, no edema and other; no unusual warmth and no crepitus Objective Data Vital Signs Vital Signs: Vital Signs - 24 hr 10/24/24 19:37 10/24/24 21:31 10/24/24 23:52 Temperature 98.1 F 98.3 F Pulse Rate 78 80 74 Respiratory Rate 14 14 Blood Pressure 145/44 H 120/39 L Pulse Oximetry 99 97 Oxygen Delivery 10/25/24 03:27 10/25/24 08:00 10/25/24 08:00 Temperature 97.5 F L 98.3 F Pulse Rate 69 72 70 Respiratory Rate 12 16 16 Blood Pressure 120/49 L 113/51 L Pulse Oximetry 98 92 97 Oxygen Delivery Room Air 10/25/24 11:51 Temperature 98.3 F Pulse Rate 70 Respiratory Rate 16 Blood Pressure 122/46 L Pulse Oximetry 97 Oxygen Delivery Intake/Output Intake/Output: Intake & Output 10/22/24 10/23/24 10/24/24 10/25/24 23:59 23:59 23:59 23:59 Intake Total 3540 4280 2814 1205 Output Total 3125 950 2590 1450 Balance 415 3330 224 -245 Meds/Results Medications: Active Medications Generic Name Dose Route Start Last Admin Trade Name Freq PRN Reason Stop Dose Admin Acetaminophen 500 mg 10/22/24 14:27 Acetaminophen 500 Mg Tablet PO Q6H PRN Pain Rated 1-3 Amiodarone HCl 200 mg 10/22/24 08:00 10/25/24 07:57 Amiodarone Hcl 200 Mg Tablet PO 200 mg BIDWM [facility] Administration Aspirin 81 mg 10/26/24 09:00 Aspirin 81 Mg Enteric Tablet PO QAM [facility] Calcium Polycarbophil 625 mg 10/26/24 09:00 Calcium Polycarbophil 625 Mg Tablet PO QAM [facility] Clopidogrel Bisulfate 75 mg 10/26/24 09:00 Clopidogrel Bisulfate 75 Mg Tablet PO DAILY [facility] Dextrose 12.5 gm 10/23/24 10:15 Dextrose 50% 25 Gm/50 Ml Syringe IV PUSH PRN PRN Hypoglycemia Protocol Dicyclomine HCl 10 mg 10/22/24 09:00 10/25/24 12:39 Dicyclomine Hcl 10 Mg Capsule PO 10 mg QID [place] Administration Doxycycline Hyclate 100 mg 10/25/24 21:00 Doxycycline Hyclate 100 Mg Tablet PO 11/05/24 23:59 Q12HR [facility] Enoxaparin Sodium 40 mg 10/23/24 09:00 10/25/24 07:57 Enoxaparin 40 Mg/0.4 Ml Syringe SUB-Q 40 mg DAILY [facility] Administration Fentanyl Citrate 25 mcg 10/22/24 14:27 Fentanyl Citrate Inj (*Crx) 100 Mcg/2 Ml Vial IV PUSH Q2H PRN Breakthrough Pain Rated 7-10 or NPO Glucagon 1 mg 10/23/24 10:15 Glucagon For Inj 1 Mg Vial IM PRN PRN Hypoglycemia Protocol Glucose 15 gm 10/23/24 10:15 Glucose Oral Gel 15 Gm Of Glucse In 37.5 Gm Tube PO PRN PRN Hypoglycemia Protocol Ceftriaxone Sodium 2 gm in 100 mls @ 200 mls/hr 10/22/24 14:00 10/24/24 14:50 Rocephin 2 Gm/Ns 100 Ml IVPB 10/28/24 23:59 200 mls/hr Q24H [facility] Administration Dextrose 1,000 mls @ 100 mls/hr 10/23/24 10:15 Dextrose 5% 1,000 Ml IVPB PRN PRN Hypoglycemia Protocol Insulin Aspart 4 - 8 units 10/23/24 12:00 10/25/24 12:33 Insulin Aspart (*Bkc) 100 Units/Ml SUB-Q Not Given TIDWM [place] Protocol Insulin Aspart 8 units 10/23/24 12:00 10/25/24 12:33 Insulin Aspart (*Bkc) 100 Units/Ml SUB-Q 8 units TIDWM [place] Administration Insulin Glargine 20 units 10/23/24 21:00 10/24/24 21:32 Insulin Glargine (*Bkc) 100 Units/Ml SUB-Q 20 units HS [place] Administration Magnesium Oxide 400 mg 10/22/24 09:00 10/25/24 07:57 Magnesium Oxide 400 Mg Tablet PO 400 mg BID [place] Administration Metoprolol Succinate 50 mg 10/22/24 09:00 10/25/24 07:57 Metoprolol Succinate Ext Rel 50 Mg Tabcr PO 50 mg Q12HR [facility] Administration Oxycodone/Acetaminophen 0.5 tablet 10/22/24 14:27 Oxycodone/Acetaminophen (*Crx) 5-325 Mg Tablet PO Q4H PRN Pain Rated 4-6 Pantoprazole Sodium 40 mg 10/22/24 09:00 10/25/24 07:57 Pantoprazole 40 Mg Tablet PO 40 mg DAILY [facility] Administration Rosuvastatin Calcium 20 mg 10/22/24 09:00 10/25/24 07:57 Rosuvastatin 20 Mg Tablet PO 20 mg DAILY [facility] Administration Sertraline HCl 25 mg 10/22/24 09:00 10/25/24 07:58 Sertraline Hcl 25 Mg Tablet PO 25 mg DAILY [facility] Administration Sodium Zirconium Cyclosilicate 10 gm 10/22/24 10:00 10/23/24 10:15 Sodium Zirconium Cyclosilicate 10 Gm Powd.Pack PO Not Given TID@1000,1500,2200 [facility] Trazodone HCl 50 mg 10/22/24 21:00 10/24/24 21:31 Trazodone Hcl 50 Mg Tablet PO 50 mg HS [place] Administration Radiology Results: ITS Impressions Foot X-Ray 10/21/24 15:25 IMPRESSION: Significant soft tissue swelling with bony erosion the peripheral most portion of the distal phalanx of the second toe Chest X-Ray 10/23/24 20:13 IMPRESSION: No focal infiltrate or effusion. Labs Labs: Laboratory Results - last 24 hr 10/24/24 10/24/24 10/24/24 16:27 19:47 22:12 WBC RBC Hgb Hct MCV MCH MCHC RDW Plt Count MPV Immature Gran % (Auto) Neut % (Auto) Lymph % (Auto) [place] % (Auto) Eos % (Auto) Baso % (Auto) Lymph # (Auto) [place] # (Auto) Eos # (Auto) Baso # (Auto) Abs Immat Gran (auto) Absolute Neuts (auto) Absolute Nucleated RBC Nucleated RBC % Sodium Potassium Chloride Carbon Dioxide Anion Gap BUN Creatinine Estim Creat Clear Calc Estimated GFR Glucose POC Capillary Glucose 175 H 222 H Calcium Phosphorus Magnesium Total Bilirubin AST ALT Alkaline Phosphatase Total Protein Albumin Vancomycin Trough 10.7 10/25/24 10/25/24 10/25/24 06:20 07:58 11:56 WBC 11.1 H RBC 2.63 L Hgb 8.0 L Hct 25.6 L MCV 97.3 MCH 30.4 MCHC 31.3 L RDW 15.0 H Plt Count 221 MPV 8.8 Immature Gran % (Auto) 0.8 H Neut % (Auto) 78.3 H Lymph % (Auto) 12.4 L [place] % (Auto) 6.0 Eos % (Auto) 2.0 Baso % (Auto) 0.5 Lymph # (Auto) 1.37 [place] # (Auto) 0.7 H Eos # (Auto) 0.2 Baso # (Auto) 0.1 Abs Immat Gran (auto) 0.09 H Absolute Neuts (auto) 8.7 H Absolute Nucleated RBC 0.000 Nucleated RBC % 0.0 Sodium 132 L Potassium 4.7 Chloride 105 Carbon Dioxide 21 L Anion Gap 6 BUN 31 H Creatinine 0.95 Estim Creat Clear Calc 43 Estimated GFR 58 L Glucose 198 H POC Capillary Glucose 178 H 186 H Calcium 8.2 L Phosphorus 3.1 Magnesium 2.1 Total Bilirubin 0.5 AST 20 ALT 13 Alkaline Phosphatase 68 Total Protein 6.0 L Albumin 2.5 L Vancomycin Trough
[2024-10-25 16:25] VITALS: BP 133/45; PULSE 73; RESP 17; TEMP 37.2; O2SAT 96
[2024-10-25 17:06] LABS: Glucose Point of Care 195 mg/dl (65-105)
[2024-10-25] MEDS: cefTRIAXone 2 GM/NS 100 ML 2 GM/100 ML BAG IVPB (17:25)
[2024-10-25 20:00] VITALS: BP 134/48; PULSE 76; RESP 16; TEMP 36.5; O2SAT 94
[2024-10-25 20:57] VITALS: PULSE 85
[2024-10-25] MEDS: traZODone HCL 50 MG TABLET PO (20:58)
[2024-10-25] MEDS: DOXYCYCLINE HYCLATE 100 MG TABLET PO (20:58)
[2024-10-25] MEDS: INSULIN GLARGINE (*BKC) 100 UNITS/ML 20 UNITS SUB-Q (20:59)
[2024-10-25 22:09] LABS: Glucose Point of Care 281 mg/dl (65-105)
[2024-10-26] VITALS (10 sets, daily range): BP systolic 120–158; BP diastolic 40–114; PULSE 66–79; RESP 16–20; TEMP 36.1–36.8; O2SAT 95–100
[2024-10-26 06:28] LABS: Basophils Absolute Auto 0.1 K/mm3 (0.0-0.1); Basophils Percent Auto 0.7 % (0.2-1.2); Eosinophils Absolute Auto 0.3 K/mm3 (0-0.3); Eosinophils Percent Auto 3.3 % (0-4.4); Hematocrit 26.4 % (37.0-47.0); Hemoglobin 8.3 g/dL (12.0-15.0); Immature Granulocyte Absolute 0.07 K/mm3 (0.00-0.031); Immature Granulocyte Percent A 0.7 % (0-0.5); Lymphocytes Absolute Auto 1.57 K/mm3 (0.9-3.2); Lymphocytes Percent Auto 15.6 % (18.3-44.2); Mean Corpuscular HGB Conc 31.4 g/dl (32-36); Mean Corpuscular Hemoglobin 30.4 pg (26-34); Mean Corpuscular Volume 96.7 fl (80-100); Mean Platelet Volume 9.1 fl (7.4-10.4); Monocytes Absolute Auto 0.5 K/mm3 (0.1-0.6); Monocytes Percent Auto 5.4 % (2.6-8.5); Neutrophils Absolute Auto 7.5 K/mm3 (1.3-6.7); Neutrophils Percent Auto 74.3 % (45.5-73.1); Platelet Count Result 235 k/mm3 (150-375); Red Blood Count 2.73 M/mm3 (4.2-5.4); Red Cell Distribution Width 14.8 % (11.5-14.5); White Blood Count 10.1 K/mm3 (4.5-10.0)
[2024-10-26 06:59] LABS: Alanine Aminotransferase 11 U/L (6-35); Albumin Level 2.5 g/dL (3.5-5.1); Alkaline Phosphatase 68 U/L (38-126); Anion Gap 7 mmol/L (4-12); Aspartate Amino Transferase 17 U/L (14-36); Bilirubin,Total 0.4 mg/dL (0.2-1.3); Blood Urea Nitrogen 27 mg/dL (7-17); Calcium 8.2 mg/dL (8.4-10.2); Carbon Dioxide 20 mmol/L (22-30); Chloride 104 mmol/L (98-107); Estimated CRCL calculation 43 ml/min; Estimated Glomerular Filt Rate 57; Glucose 197 mg/dL (65-110); Phosphorus 3.2 mg/dL (2.5-4.5); Potassium 4.4 mmol/L (3.4-5.0); Sodium 131 mmol/L (137-145)
[2024-10-26 08:22] LABS: Glucose Point of Care 171 mg/dl (65-105)
[2024-10-26] MEDS: SERTRALINE HCL 25 MG TABLET PO (09:58)
[2024-10-26] MEDS: METOPROLOL SUCCINATE EXT REL 50 MG TABCR PO ×2 (09:58→20:34)
[2024-10-26] MEDS: PANTOPRAZOLE 40 MG TABLET PO (09:58)
[2024-10-26] MEDS: AMIODARONE HCL 200 MG TABLET PO ×2 (09:59→17:32)
[2024-10-26] MEDS: MAGNESIUM OXIDE 400 MG TABLET PO ×2 (09:59→17:32)
[2024-10-26] MEDS: calcium polycarbophiL 625 MG TABLET PO (09:59)
[2024-10-26] MEDS: CLOPIDOGREL BISULFATE 75 MG TABLET PO (09:59)
[2024-10-26] MEDS: ASPIRIN 81 MG ENTERIC TABLET PO (09:59)
[2024-10-26] MEDS: DOXYCYCLINE HYCLATE 100 MG TABLET PO ×2 (09:59→20:34)
[2024-10-26] MEDS: INSULIN ASPART (*BKC) 100 UNITS/ML 8 UNITS SUB-Q ×2 (10:00→12:16)
[2024-10-26] MEDS: ROSUVASTATIN 20 MG TABLET PO (10:00)
[2024-10-26] MEDS: ENOXAPARIN 40 MG/0.4 ML SYRINGE SUB-Q (10:00)
[2024-10-26] MEDS: DICYCLOMINE HCL 10 MG CAPSULE PO ×4 (10:00→20:34)
[2024-10-26 11:57] LABS: Glucose Point of Care 258 mg/dl (65-105)
[2024-10-26] MEDS: INSULIN ASPART (*BKC) 100 UNITS/ML SUB-Q (12:17)
--- NOTE | 2024-10-26 12:47 | P.PNIM_ITS ---
Progress Note: A&P Assessment and Plan (1) Essential hypertension: Code(s): I10 - Essential (primary) hypertension Status: Acute (2) Coronary artery disease: Onset Date: 11/04/17 Code(s): I25.10 - Atherosclerotic heart disease of [place] coronary artery without angina pectoris Status: Acute (3) Hyperlipidemia: Code(s): E78.5 - Hyperlipidemia, unspecified Status: Acute (4) Type 2 diabetes mellitus with hyperglycemia, with long-term current use of insulin: Code(s): E11.65 - Type 2 diabetes mellitus with hyperglycemia; Z79.4 - detention (current) use of insulin Status: Acute (5) Diabetic foot ulcer: Code(s): E11.621 - Type 2 diabetes mellitus with foot ulcer; L97.509 - Non-pressure chronic ulcer of other part of unspecified foot with unspecified severity Status: Chronic Plan A 69-year-old female who presents to the ER from nursing facility with concerns for infected 2nd toe right foot. She noticed redness and sore spot in the beginning of this month. She went to see primary provider with been watching the wound. Continued worsening she was sent to the ER for evaluation. She denies any fever chills leg swelling calf pain. She does have history of diabetes. He had recent complicated course after CABG in May followed by bowel ischemia leading to i.e. ostomy placement. She has been in rehab since then. Patient is not on any antibiotics currently. On ED evaluation her vitals were stable she was afebrile. EKG showed normal sinus rhythm with no signs of acute ischemia. Laboratory evaluation revealed leukocytosis of 15.4 hemoglobin of 8 which is around baseline sodium of 126 potassium 6.3 bicarb 17 BUN 69 creatinine 1.7 which is higher than her baseline creatinine level. CRP is 3.2. Urinalysis revealed 51-100 WBC 3 +leukocyte esterase. Patient received calcium gluconate IV insulin dextrose Kayexalate and albuterol for hyperkalemia and was started on IV fluids. X-ray of the right foot was obtained which showed significant soft tissue swelling with bony erosions the peripheral most portion of the distal phalanx of the 2nd toe consistent with osteomyelitis. Patient has been started on IV vancomycin and ciprofloxacin for osteomyelitis. Blood cultures were obtained. General surgery has been consulted. Purulent discharge comes from the toe infection site on evaluation. She underwent right 2nd toe amputation 10/22/2024. Will continue IV antibiotics which was switched to ceftriaxone vancomycin and metronidazole. Her blood culture came back positive for Gram-positive cocci in chains Which is identified as Streptococcus. Sensitive to ceftriaxone. Wound cultures growing Staphylococcus aureus found to be MRSA> switched to doxycycline. Metronidazole for possible concurrent anaerobic infection. Dressing changes per General surgery. Tentative plan to continue for 7 more days. on ceftraixone for strepptococcus bacteremia need 7 days total course. concludes 10/28/24 Diabetic toe infection with osteomyelitis of phalanx status post toe amputation culture MRSA bacteremia with Streptococcus MILENA creatinine 1.7. Baseline creatinine 0.9 IV fluid to continue will hold Lasix. Renal failure resolved Acute on Chronic anemia hemoglobin down to 6.5 status. IV fluids. Aspirin Plavix on hold which is resumed. Hyponatremia mild on admission 126. Improved UTI on ceftriaxone. Urine culture mixed genital alan Hyperkalemia treated. Resolved Coronary artery disease status post CABG May of 2024 Hypertension Hyperlipidemia Status post partial colectomy and ostomy placement June 2024. Peptic ulcer disease Type 2 diabetes on insulin A1c at 8. Add basal insulin DVTprophylaxis SCDs Lovenox which will be held due to anemia Code status full code PT OT to see Subjective Date/time seen: 10/26/24 12:47 Interval history: No overnight events. no new complaints. no fever, chills. Review of Systems Review of Systems: All systems reviewed & are unremarkable except as noted in HPI and below Exam Narrative: General: Alert, awake, afebrile, in no acute distress. HEENT: PERRL, no rhinorrhea, no post nasal drip, oropharynx clear. Neck: Trachea midline, no JVD, no lymphadenopathy. Cardiovascular: Regular rate and rhythm, no murmurs, rubs or gallops, no peripheral edema. Respiratory: Clear to auscultation bilaterally, no tachypnea, no wheezing, no rhonchi, no rubs, no respiratory distress. Abdomen: Soft, nontender, nondistended, no rebound, no guarding, no peritoneal signs. Musculoskeletal: Right foot with dressing in place Skin: No rashes or petechia, no signs of infection. Psychiatric: Alert and oriented, normal behavior and judgment for situation. Neurological: Alert and oriented to person, place, and time. Follows all commands. No focal deficits, speech is clear and fluent. Objective Data Vital Signs Vital Signs: Vital Signs - 24 hr 10/25/24 16:25 10/25/24 20:00 10/25/24 20:57 Temperature 98.9 F 97.7 F Pulse Rate 73 76 85 Respiratory Rate 17 16 Blood Pressure 133/45 L 134/48 L Pulse Oximetry 96 94 Oxygen Delivery 10/26/24 00:00 10/26/24 04:00 10/26/24 08:00 Temperature 98.2 F 97.7 F 97.0 F L Pulse Rate 71 66 69 Respiratory Rate 20 20 18 Blood Pressure 124/58 L 127/59 L 139/55 L Pulse Oximetry 96 95 95 Oxygen Delivery 10/26/24 09:58 10/26/24 09:59 10/26/24 10:00 Temperature Pulse Rate 69 69 Respiratory Rate Blood Pressure Pulse Oximetry Oxygen Delivery Room Air 10/26/24 10:15 10/26/24 11:58 Temperature 98.1 F Pulse Rate 79 Respiratory Rate 18 Blood Pressure 120/40 L Pulse Oximetry 100 Oxygen Delivery Room Air Intake/Output Intake/Output: Intake & Output 10/23/24 10/24/24 10/25/24 10/26/24 23:59 23:59 23:59 23:59 Intake Total 4280 2814 1995 530 Output Total 950 2590 2240 300 Balance 3330 224 -245 230 Meds/Results Medications: Active Medications Generic Name Dose Route Start Last Admin Trade Name Freq PRN Reason Stop Dose Admin Acetaminophen 500 mg 10/22/24 14:27 Acetaminophen 500 Mg Tablet PO Q6H PRN Pain Rated 1-3 Amiodarone HCl 200 mg 10/22/24 08:00 10/26/24 09:59 Amiodarone Hcl 200 Mg Tablet PO 200 mg BIDWM [place] Administration Aspirin 81 mg 10/26/24 09:00 10/26/24 09:59 Aspirin 81 Mg Enteric Tablet PO 81 mg QAM [place] Administration Calcium Polycarbophil 625 mg 10/26/24 09:00 10/26/24 09:59 Calcium Polycarbophil 625 Mg Tablet PO 625 mg QAM [place] Administration Clopidogrel Bisulfate 75 mg 10/26/24 09:00 10/26/24 09:59 Clopidogrel Bisulfate 75 Mg Tablet PO 75 mg DAILY [place] Administration Dextrose 12.5 gm 10/23/24 10:15 Dextrose 50% 25 Gm/50 Ml Syringe IV PUSH PRN PRN Hypoglycemia Protocol Dicyclomine HCl 10 mg 10/22/24 09:00 10/26/24 12:16 Dicyclomine Hcl 10 Mg Capsule PO 10 mg QID [place] Administration Doxycycline Hyclate 100 mg 10/25/24 21:00 10/26/24 09:59 Doxycycline Hyclate 100 Mg Tablet PO 11/05/24 23:59 100 mg Q12HR [place] Administration Enoxaparin Sodium 40 mg 10/23/24 09:00 10/26/24 10:00 Enoxaparin 40 Mg/0.4 Ml Syringe SUB-Q 40 mg DAILY [place] Administration Fentanyl Citrate 25 mcg 10/22/24 14:27 Fentanyl Citrate Inj (*Crx) 100 Mcg/2 Ml Vial IV PUSH Q2H PRN Breakthrough Pain Rated 7-10 or NPO Glucagon 1 mg 10/23/24 10:15 Glucagon For Inj 1 Mg Vial IM PRN PRN Hypoglycemia Protocol Glucose 15 gm 10/23/24 10:15 Glucose Oral Gel 15 Gm Of Glucse In 37.5 Gm Tube PO PRN PRN Hypoglycemia Protocol Ceftriaxone Sodium 2 gm in 100 mls @ 200 mls/hr 10/22/24 14:00 10/25/24 20:54 Rocephin 2 Gm/Ns 100 Ml IVPB 10/28/24 23:59 Not Given Q24H [place] Dextrose 1,000 mls @ 100 mls/hr 10/23/24 10:15 Dextrose 5% 1,000 Ml IVPB PRN PRN Hypoglycemia Protocol Insulin Aspart 4 - 8 units 10/23/24 12:00 10/26/24 12:17 Insulin Aspart (*Bkc) 100 Units/Ml SUB-Q 5 units TIDWM [place] Administration Protocol Insulin Aspart 8 units 10/23/24 12:00 10/26/24 12:16 Insulin Aspart (*Bkc) 100 Units/Ml SUB-Q 8 units TIDWM [place] Administration Insulin Glargine 20 units 10/23/24 21:00 10/25/24 20:59 Insulin Glargine (*Bkc) 100 Units/Ml SUB-Q 20 units HS [place] Administration Magnesium Oxide 400 mg 10/22/24 09:00 10/26/24 09:59 Magnesium Oxide 400 Mg Tablet PO 400 mg BID [place] Administration Metoprolol Succinate 50 mg 10/22/24 09:00 10/26/24 09:58 Metoprolol Succinate Ext Rel 50 Mg Tabcr PO 50 mg Q12HR [place] Administration Oxycodone/Acetaminophen 0.5 tablet 10/22/24 14:27 Oxycodone/Acetaminophen (*Crx) 5-325 Mg Tablet PO Q4H PRN Pain Rated 4-6 Pantoprazole Sodium 40 mg 10/22/24 09:00 10/26/24 09:58 Pantoprazole 40 Mg Tablet PO 40 mg DAILY [place] Administration Rosuvastatin Calcium 20 mg 10/22/24 09:00 10/26/24 10:00 Rosuvastatin 20 Mg Tablet PO 20 mg DAILY [place] Administration Sertraline HCl 25 mg 10/22/24 09:00 10/26/24 09:58 Sertraline Hcl 25 Mg Tablet PO 25 mg DAILY [place] Administration Sodium Zirconium Cyclosilicate 10 gm 10/22/24 10:00 10/23/24 10:15 Sodium Zirconium Cyclosilicate 10 Gm Powd.Pack PO Not Given TID@1000,1500,2200 [place] Trazodone HCl 50 mg 10/22/24 21:00 10/25/24 20:58 Trazodone Hcl 50 Mg Tablet PO 50 mg HS [place] Administration Radiology Results: ITS Impressions Foot X-Ray 10/21/24 15:25 IMPRESSION: Significant soft tissue swelling with bony erosion the peripheral most portion of the distal phalanx of the second toe Chest X-Ray 10/23/24 20:13 IMPRESSION: No focal infiltrate or effusion. Labs Labs: Laboratory Results - last 24 hr 10/25/24 10/25/24 10/26/24 16:56 20:36 06:09 WBC 10.1 H RBC 2.73 L Hgb 8.3 L Hct 26.4 L MCV 96.7 MCH 30.4 MCHC 31.4 L RDW 14.8 H Plt Count 235 MPV 9.1 Immature Gran % (Auto) 0.7 H Neut % (Auto) 74.3 H Lymph % (Auto) 15.6 L [place] % (Auto) 5.4 Eos % (Auto) 3.3 Baso % (Auto) 0.7 Lymph # (Auto) 1.57 [place] # (Auto) 0.5 Eos # (Auto) 0.3 Baso # (Auto) 0.1 Abs Immat Gran (auto) 0.07 H Absolute Neuts (auto) 7.5 H Absolute Nucleated RBC 0.000 Nucleated RBC % 0.0 Sodium 131 L Potassium 4.4 Chloride 104 Carbon Dioxide 20 L Anion Gap 7 BUN 27 H Creatinine 0.96 Estim Creat Clear Calc 43 Estimated GFR 57 L Glucose 197 H POC Capillary Glucose 195 H 281 H Calcium 8.2 L Phosphorus 3.2 Magnesium 2.0 Total Bilirubin 0.4 AST 17 ALT 11 Alkaline Phosphatase 68 Total Protein 6.0 L Albumin 2.5 L 10/26/24 10/26/24 07:59 11:37 WBC RBC Hgb Hct MCV MCH MCHC RDW Plt Count MPV Immature Gran % (Auto) Neut % (Auto) Lymph % (Auto) [place] % (Auto) Eos % (Auto) Baso % (Auto) Lymph # (Auto) [place] # (Auto) Eos # (Auto) Baso # (Auto) Abs Immat Gran (auto) Absolute Neuts (auto) Absolute Nucleated RBC Nucleated RBC % Sodium Potassium Chloride Carbon Dioxide Anion Gap BUN Creatinine Estim Creat Clear Calc Estimated GFR Glucose POC Capillary Glucose 171 H 258 H Calcium Phosphorus Magnesium Total Bilirubin AST ALT Alkaline Phosphatase Total Protein Albumin
--- NOTE | 2024-10-26 13:06 | P.PNGS_ITS ---
Progress Note: A&P Assessment and Plan (1) Osteomyelitis: Qualifiers: Laterality: right Osteomyelitis location: foot Osteomyelitis type: chronic, with draining sinus Qualified Code(s): M86.471 - Chronic osteomyelitis with draining sinus, right ankle and foot Code(s): M86.9 - Osteomyelitis, unspecified Status: Acute Assessment and Plan: healing well after right 2nd toe amputation 4 days ago. Okay to discharge tomorrow on either doxycycline or Bactrim for another 7 days. I will see her in the office in 3 weeks. She plans to return to [facility] in [place]. (2) Insulin dependent type 2 diabetes mellitus: Code(s): E11.9 - Type 2 diabetes mellitus without complications; Z79.4 - half-way (current) use of insulin Status: Chronic Subjective Subjective Date/Time Seen: 10/26/24 13:06 Post Op day: 4 Patient reports: no new complaints, feels better and afebrile Interval history: Patient able to ambulate well with walking shoe and bandage in place right foot. Exam Const: General: cooperative, comfortable, alert and awake Orientation/consciousness: No confusion Extrem: Right lower extremity: foot ( 2nd toe amputation wound healing well) Details: no tenderness, no unusual warmth and no crepitus Objective Data Vital Signs Vital Signs: Vital Signs - 24 hr 10/25/24 16:25 10/25/24 20:00 10/25/24 20:57 Temperature 37.2 C 36.5 C Pulse Rate 73 76 85 Respiratory Rate 17 16 Blood Pressure 133/45 L 134/48 L Pulse Oximetry 96 94 Oxygen Delivery 10/26/24 00:00 10/26/24 04:00 10/26/24 08:00 Temperature 36.8 C 36.5 C 36.1 C L Pulse Rate 71 66 69 Respiratory Rate 20 20 18 Blood Pressure 124/58 L 127/59 L 139/55 L Pulse Oximetry 96 95 95 Oxygen Delivery 10/26/24 09:58 10/26/24 09:59 10/26/24 10:00 Temperature Pulse Rate 69 69 Respiratory Rate Blood Pressure Pulse Oximetry Oxygen Delivery Room Air 10/26/24 10:15 10/26/24 11:58 Temperature 36.7 C Pulse Rate 79 Respiratory Rate 18 Blood Pressure 120/40 L Pulse Oximetry 100 Oxygen Delivery Room Air Intake/Output Intake/Output: Intake & Output 10/23/24 10/24/24 10/25/24 10/26/24 23:59 23:59 23:59 23:59 Intake Total 4280 2814 1995 530 Output Total 950 2590 2240 300 Balance 3330 224 -245 230 Meds/Results Medications: Active Medications Generic Name Dose Route Start Last Admin Trade Name Freq PRN Reason Stop Dose Admin Acetaminophen 500 mg 10/22/24 14:27 Acetaminophen 500 Mg Tablet PO Q6H PRN Pain Rated 1-3 Amiodarone HCl 200 mg 10/22/24 08:00 10/26/24 09:59 Amiodarone Hcl 200 Mg Tablet PO 200 mg BIDWM [place] Administration Aspirin 81 mg 10/26/24 09:00 10/26/24 09:59 Aspirin 81 Mg Enteric Tablet PO 81 mg QAM [place] Administration Calcium Polycarbophil 625 mg 10/26/24 09:00 10/26/24 09:59 Calcium Polycarbophil 625 Mg Tablet PO 625 mg QAM [place] Administration Clopidogrel Bisulfate 75 mg 10/26/24 09:00 10/26/24 09:59 Clopidogrel Bisulfate 75 Mg Tablet PO 75 mg DAILY [place] Administration Dextrose 12.5 gm 10/23/24 10:15 Dextrose 50% 25 Gm/50 Ml Syringe IV PUSH PRN PRN Hypoglycemia Protocol Dicyclomine HCl 10 mg 10/22/24 09:00 10/26/24 12:16 Dicyclomine Hcl 10 Mg Capsule PO 10 mg QID [place] Administration Doxycycline Hyclate 100 mg 10/25/24 21:00 10/26/24 09:59 Doxycycline Hyclate 100 Mg Tablet PO 11/05/24 23:59 100 mg Q12HR [place] Administration Enoxaparin Sodium 40 mg 10/23/24 09:00 10/26/24 10:00 Enoxaparin 40 Mg/0.4 Ml Syringe SUB-Q 40 mg DAILY [place] Administration Fentanyl Citrate 25 mcg 10/22/24 14:27 Fentanyl Citrate Inj (*Crx) 100 Mcg/2 Ml Vial IV PUSH Q2H PRN Breakthrough Pain Rated 7-10 or NPO Glucagon 1 mg 10/23/24 10:15 Glucagon For Inj 1 Mg Vial IM PRN PRN Hypoglycemia Protocol Glucose 15 gm 10/23/24 10:15 Glucose Oral Gel 15 Gm Of Glucse In 37.5 Gm Tube PO PRN PRN Hypoglycemia Protocol Ceftriaxone Sodium 2 gm in 100 mls @ 200 mls/hr 10/22/24 14:00 10/25/24 20:54 Rocephin 2 Gm/Ns 100 Ml IVPB 10/28/24 23:59 Not Given Q24H [place] Dextrose 1,000 mls @ 100 mls/hr 10/23/24 10:15 Dextrose 5% 1,000 Ml IVPB PRN PRN Hypoglycemia Protocol Insulin Aspart 4 - 8 units 10/23/24 12:00 10/26/24 12:17 Insulin Aspart (*Bkc) 100 Units/Ml SUB-Q 5 units TIDWM [place] Administration Protocol Insulin Aspart 8 units 10/23/24 12:00 10/26/24 12:16 Insulin Aspart (*Bkc) 100 Units/Ml SUB-Q 8 units TIDWM [place] Administration Insulin Glargine 20 units 10/23/24 21:00 10/25/24 20:59 Insulin Glargine (*Bkc) 100 Units/Ml SUB-Q 20 units HS [place] Administration Magnesium Oxide 400 mg 10/22/24 09:00 10/26/24 09:59 Magnesium Oxide 400 Mg Tablet PO 400 mg BID [place] Administration Metoprolol Succinate 50 mg 10/22/24 09:00 10/26/24 09:58 Metoprolol Succinate Ext Rel 50 Mg Tabcr PO 50 mg Q12HR [place] Administration Oxycodone/Acetaminophen 0.5 tablet 10/22/24 14:27 Oxycodone/Acetaminophen (*Crx) 5-325 Mg Tablet PO Q4H PRN Pain Rated 4-6 Pantoprazole Sodium 40 mg 10/22/24 09:00 10/26/24 09:58 Pantoprazole 40 Mg Tablet PO 40 mg DAILY [place] Administration Rosuvastatin Calcium 20 mg 10/22/24 09:00 10/26/24 10:00 Rosuvastatin 20 Mg Tablet PO 20 mg DAILY [place] Administration Sertraline HCl 25 mg 10/22/24 09:00 10/26/24 09:58 Sertraline Hcl 25 Mg Tablet PO 25 mg DAILY [place] Administration Sodium Zirconium Cyclosilicate 10 gm 10/22/24 10:00 10/23/24 10:15 Sodium Zirconium Cyclosilicate 10 Gm Powd.Pack PO Not Given TID@1000,1500,2200 [place] Trazodone HCl 50 mg 10/22/24 21:00 10/25/24 20:58 Trazodone Hcl 50 Mg Tablet PO 50 mg HS [place] Administration Radiology Results: ITS Impressions Foot X-Ray 10/21/24 15:25 IMPRESSION: Significant soft tissue swelling with bony erosion the peripheral most portion of the distal phalanx of the second toe Chest X-Ray 10/23/24 20:13 IMPRESSION: No focal infiltrate or effusion. Labs Labs: Laboratory Results - last 24 hr 10/25/24 10/25/24 10/26/24 16:56 20:36 06:09 WBC 10.1 H RBC 2.73 L Hgb 8.3 L Hct 26.4 L MCV 96.7 MCH 30.4 MCHC 31.4 L RDW 14.8 H Plt Count 235 MPV 9.1 Immature Gran % (Auto) 0.7 H Neut % (Auto) 74.3 H Lymph % (Auto) 15.6 L [place] % (Auto) 5.4 Eos % (Auto) 3.3 Baso % (Auto) 0.7 Lymph # (Auto) 1.57 [place] # (Auto) 0.5 Eos # (Auto) 0.3 Baso # (Auto) 0.1 Abs Immat Gran (auto) 0.07 H Absolute Neuts (auto) 7.5 H Absolute Nucleated RBC 0.000 Nucleated RBC % 0.0 Sodium 131 L Potassium 4.4 Chloride 104 Carbon Dioxide 20 L Anion Gap 7 BUN 27 H Creatinine 0.96 Estim Creat Clear Calc 43 Estimated GFR 57 L Glucose 197 H POC Capillary Glucose 195 H 281 H Calcium 8.2 L Phosphorus 3.2 Magnesium 2.0 Total Bilirubin 0.4 AST 17 ALT 11 Alkaline Phosphatase 68 Total Protein 6.0 L Albumin 2.5 L 10/26/24 10/26/24 07:59 11:37 WBC RBC Hgb Hct MCV MCH MCHC RDW Plt Count MPV Immature Gran % (Auto) Neut % (Auto) Lymph % (Auto) [place] % (Auto) Eos % (Auto) Baso % (Auto) Lymph # (Auto) [place] # (Auto) Eos # (Auto) Baso # (Auto) Abs Immat Gran (auto) Absolute Neuts (auto) Absolute Nucleated RBC Nucleated RBC % Sodium Potassium Chloride Carbon Dioxide Anion Gap BUN Creatinine Estim Creat Clear Calc Estimated GFR Glucose POC Capillary Glucose 171 H 258 H Calcium Phosphorus Magnesium Total Bilirubin AST ALT Alkaline Phosphatase Total Protein Albumin
--- NOTE | 2024-10-26 13:32 | P.DS_ITS ---
DS: Admitting Diagnosis Discharge Date 10/26/2024 Admitting Diagnosis Right toe infection DS: Discharge Diagnosis Discharge Diagnosis (1) Essential hypertension: Code(s): I10 - Essential (primary) hypertension Status: Acute (2) Coronary artery disease: Onset Date: 11/04/17 Code(s): I25.10 - Atherosclerotic heart disease of [place] coronary artery without angina pectoris Status: Acute (3) Hyperlipidemia: Code(s): E78.5 - Hyperlipidemia, unspecified Status: Acute (4) Type 2 diabetes mellitus with hyperglycemia, with long-term current use of insulin: Code(s): E11.65 - Type 2 diabetes mellitus with hyperglycemia; Z79.4 - terminal system operator (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 She noticed redness and sore spot in the beginning of this month. She went to see primary provider with been watching the wound. Continued worsening she was sent to the ER for evaluation. She denies any fever chills leg swelling calf pain. She does have history of diabetes. He had recent complicated course after CABG in May followed by bowel ischemia leading to i.e. ostomy placement. She has been in rehab since then. Patient is not on any antibiotics currently. On ED evaluation her vitals were stable she was afebrile. EKG showed normal sinus rhythm with no signs of acute ischemia. Laboratory evaluation revealed leukocytosis of 15.4 hemoglobin of 8 which is around baseline sodium of 126 potassium 6.3 bicarb 17 BUN 69 creatinine 1.7 which is higher than her baseline creatinine level. CRP is 3.2. Urinalysis revealed 51-100 WBC 3 +leukocyte esterase. Patient received calcium gluconate IV insulin dextrose Kayexalate and albuterol for hyperkalemia and was started on IV fluids. X-ray of the right foot was obtained which showed significant soft tissue swelling with bony erosions the peripheral most portion of the distal phalanx of the 2nd toe consistent with osteomyelitis. Patient has been started on IV vancomycin and ciprofloxacin for osteomyelitis. Blood cultures were obtained. General surgery has been consulted. Purulent discharge comes from the toe infection site on evaluation. She underwent right 2nd toe amputation 10/22/2024. she was continued on IV antibiotics which was switched to ceftriaxone vancomycin and metronidazole. Her blood culture came back positive for Gram-positive cocci in chains Which is identified as Streptococcus. Sensitive to ceftriaxone. Wound cultures growing Staphylococcus aureus found to be MRSA> switched to doxycycline. Metronidazole for possible concurrent anaerobic infection. Dressing changes per General surgery. Tentative plan to continue for 7 more days. on ceftraixone for strepptococcus bacteremia need 7 days total course. concludes 10/28/24 . this will be continued at her current nursing facility which was confirmed prior to discharge. Diabetic toe infection with osteomyelitis of phalanx status post toe amputation culture MRSA bacteremia with Streptococcus treat with ceftraixone for total one week MILENA creatinine 1.7. Baseline creatinine 0.9 IV fluid to continue will hold Lasix. Renal failure resolved Acute on Chronic anemia hemoglobin down to 6.5 status. IV fluids. Aspirin Plavix on hold which is resumed. Hyponatremia mild on admission 126. Improved UTI on ceftriaxone. Urine culture mixed genital alan Hyperkalemia treated. Resolved. losasrtan will be resumed in lower dose but hyperkalemia likely due to MILENA from his diabetic foot infection. monitor Coronary artery disease status post CABG May of 2024 Hypertension hold lasix, restart losratan 50 mg at discharge Hyperlipidemia Status post partial colectomy and ostomy placement June 2024. Peptic ulcer disease Type 2 diabetes on insulin A1c at 8. Add basal insulin DVTprophylaxis SCDs Lovenox which will be held due to anemia Code status full code PT OT to see and evaluated during the hospital stay Time Spent with Patient Time attestation: Total time spent providing and/or coordinating discharge services:45 mins Exam Narrative: General: Alert, awake, afebrile, in no acute distress. HEENT: PERRL, no rhinorrhea, no post nasal drip, oropharynx clear. Neck: Trachea midline, no JVD, no lymphadenopathy. Cardiovascular: Regular rate and rhythm, no murmurs, rubs or gallops, no peripheral edema. Respiratory: Clear to auscultation bilaterally, no tachypnea, no wheezing, no rhonchi, no rubs, no respiratory distress. Abdomen: Soft, nontender, nondistended, no rebound, no guarding, no peritoneal signs. Musculoskeletal: Right foot with dressing in place Skin: No rashes or petechia, no signs of infection. Psychiatric: Alert and oriented, normal behavior and judgment for situation. Neurological: Alert and oriented to person, place, and time. Follows all commands. No focal deficits, speech is clear and fluent. DS: Data Data Completed and Pending Completed studies during hospitalization: Pending at discharge 10/22/24 13:14 Surgical [PTH] Routine Labs on day of discharge: Labs from last 24 hours 10/26/24 10/26/24 10/26/24 11:37 07:59 06:09 WBC 10.1 H RBC 2.73 L Hgb 8.3 L Hct 26.4 L MCV 96.7 MCH 30.4 MCHC 31.4 L RDW 14.8 H Plt Count 235 MPV 9.1 Immature Gran % (Auto) 0.7 H Neut % (Auto) 74.3 H Lymph % (Auto) 15.6 L [place] % (Auto) 5.4 Eos % (Auto) 3.3 Baso % (Auto) 0.7 Lymph # (Auto) 1.57 [place] # (Auto) 0.5 Eos # (Auto) 0.3 Baso # (Auto) 0.1 Abs Immat Gran (auto) 0.07 H Absolute Neuts (auto) 7.5 H Absolute Nucleated RBC 0.000 Nucleated RBC % 0.0 Sodium 131 L Potassium 4.4 Chloride 104 Carbon Dioxide 20 L Anion Gap 7 BUN 27 H Creatinine 0.96 Estim Creat Clear Calc 43 Estimated GFR 57 L Glucose 197 H POC Capillary Glucose 258 H 171 H Calcium 8.2 L Phosphorus 3.2 Magnesium 2.0 Total Bilirubin 0.4 AST 17 ALT 11 Alkaline Phosphatase 68 Total Protein 6.0 L Albumin 2.5 L 10/25/24 10/25/24 20:36 16:56 WBC RBC Hgb Hct MCV MCH MCHC RDW Plt Count MPV Immature Gran % (Auto) Neut % (Auto) Lymph % (Auto) [place] % (Auto) Eos % (Auto) Baso % (Auto) Lymph # (Auto) [place] # (Auto) Eos # (Auto) Baso # (Auto) Abs Immat Gran (auto) Absolute Neuts (auto) Absolute Nucleated RBC Nucleated RBC % Sodium Potassium Chloride Carbon Dioxide Anion Gap BUN Creatinine Estim Creat Clear Calc Estimated GFR Glucose POC Capillary Glucose 281 H 195 H Calcium Phosphorus Magnesium Total Bilirubin AST ALT Alkaline Phosphatase Total Protein Albumin Preliminary micro results at discharge 10/24/24 14:39 Blood Culture - Preliminary Blood 10/24/24 14:39 Blood Culture - Preliminary Blood 10/21/24 19:54 Blood Culture - Preliminary Blood Strep infantarius sub coli Procedures/Treatments: Procedure Note - Detailed Date of Procedure 10/22/24 Pre-op Diagnosis Osteomyelitis right 2nd toe, distal phalanx Post-op Diagnosis Same Procedure Performed Right 2nd toe amputation Surgeon Ang Hernadez MD 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 This probes to bone. Plain films suggest distal phalanx osteomyelitis. There was purulent fluid coming from the tip of the toe. Patient is diabetic. After discussion, she is taken to surgery now for right 2nd toe amputation. Findings Well vascularized right 2nd toe. No evidence of infection at base of toe Description of Procedure Patient was taken to surgery and anesthesia was induced. The right foot was prepped and draped. Local anesthetic was infiltrated creating a digital block at the base of the right 2nd toe. The proposed incision which was transversely oriented with dorsal and plantar flaps was drawn on the skin. Incision was then made. The base of the proximal phalanx was exposed using a periosteal elevator. A bone cutter was then used and divided the toe at the proximal phalanx. The toe was passed off as a specimen. We then did some additional dissection. Rongeurs were used to remove more of the base of the proximal phalanx so that there was a smooth surface to the bone. Cautery was used for hemostasis but there was considerable oozing from the skin and subcutaneous. We then placed interrupted 3-0 Vicryl subcutaneous sutures. The skin was then loosely approximated with subcuticular interrupted 4-0 Vicryl suture. The wound was now dry. All skin surfaces appeared to be viable. The area of the foot was then cleaned. The amputation wound was dressed with Xeroform gauze, fluffs, Kerlix roll. Patient was then awakened and taken to recovery in good condition. Sponge and needle counts were correct x2. Estimated Blood Loss -10 Urine Output 700 Drains No Packing No Pathology Yes (Right 2nd toe) Complications None Condition Stable Disposition PACU [facility] Billing Surgery - Charge Forward: Surgery Billing (Right 2nd toe amputation) Imaging Radiologist's impression: ITS Impressions Foot X-Ray 10/21/24 15:25 IMPRESSION: Significant soft tissue swelling with bony erosion the peripheral most portion of the distal phalanx of the second toe Chest X-Ray 10/23/24 20:13 IMPRESSION: No focal infiltrate or effusion. Discharge Plan Discharge Attending physician on discharge: Kevin Harris Consulting providers: Ang Hernadez Discharging Clinician: Kevin Harris Anticipated Discharge Date/Time: 10/26/24 13:35 Patient Disposition: SNF Activity: may shower and as tolerated Diet: heart healthy and diabetic Wound Care Instructions: change dressing daily Discharge Instructions: * Call to schedule an appointment to follow up with Dr. Hernadez in 3 weeks. [phone] * Wound care: Apply Xeroform gauze and cover with 4 x 4 gauze over the amputation site, then wrap with Kerlix rolled gauze and Keith wrap. Change dressing daily. Okay to remove dressing and shower over the wound with mild soap and water daily to keep clean. * Wear your postop shoe with any activity or walking. Heel touch weight-bearing to right lower extremity. 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 * * patient goes on iv peripheral line for two more days of iv antibiotics. * accucheck ac and hs. Patient Language: Italian Stand Alone Forms: General Discharge Information, Alf Discharge Follow-up/Referrals: Ang Hernadez MD [Physician] - 3 Weeks Torres Pedroza MD [Primary Care Provider] - 1 Week Discharge Medications: New ceftriaxone 2 gram Recon Soln 2 g IV Q24H Qty: 2 0RF Rx Instructions: give on 10/27/2024 and 10/28/2024 doxycycline hyclate 100 mg Tablet 100 mg PO Q12HR Qty: 20 0RF Continued sucralfate 100 mg/mL suspension 10 ml PO ACHS rosuvastatin 20 mg tablet 20 mg PO DAILY acetaminophen 325 mg Tablet 650 mg PO Q8H PRN (Reason: Pain (Scale Score 1-3)) trazodone 50 mg tablet 50 mg PO HS amiodarone 200 mg tablet 200 mg PO BID clopidogrel 75 mg tablet 75 mg PO DAILY pantoprazole 40 mg tablet,delayed release (DR/EC) 20 mg PO DAILY calcium polycarbophil [Fiber (calcium polycarbophil)] 625 mg Tablet 625 mg PO QAM Qty: 30 0RF dicyclomine 10 mg Capsule 10 mg PO QID Qty: 90 0RF ondansetron 4 mg tablet,disintegrating 4 mg PO Q6H PRN (Reason: nausea and vomiting) magnesium oxide 400 mg magnesium capsule 400 mg PO BID sertraline 25 mg tablet 25 mg PO DAILY metoprolol succinate 100 mg tablet extended release 24 hr 50 mg PO BID aspirin 81 mg Capsule 81 mg PO DAILY Humulin 70/30 U-100 Insulin 100 unit/mL (70-30) suspension 50 unit SUBCUT BID Changed losartan 100 mg tablet 50 mg PO DAILY Qty: 30 0RF Discontinued furosemide 40 mg tablet 40 mg PO DAILY Date of admission: 10/21/24 19:47 Primary Care Provider: Torres Pedroza Admitting Provider: Liana Novoa Attending physician on admission: Liana Novoa Condition: Improved Hospitalist MIPS Heart Failure (Exclusion) Patient has history of Heart Transplant or Left Ventricular Assistive Device?: No IF YES, STOP HERE Heart Failure (Qualifier) Patient has current or prior documentation of LVEF less than or equal to 40%, or mod/servere depressed LVSF?: No IF NO, STOP HERE
[2024-10-26] MEDS: cefTRIAXone 2 GM/NS 100 ML 2 GM/100 ML BAG IVPB (14:41)
[2024-10-26 17:02] LABS: Glucose Point of Care 106 mg/dl (65-105)
[2024-10-26] MEDS: INSULIN ASPART (*BKC) 100 UNITS/ML 10 UNITS SUB-Q (17:33)
[2024-10-26] MEDS: traZODone HCL 50 MG TABLET PO (20:34)
[2024-10-26] MEDS: INSULIN GLARGINE (*BKC) 100 UNITS/ML 26 UNITS SUB-Q (20:46)
[2024-10-26 21:03] LABS: Glucose Point of Care 129 mg/dl (65-105)
== END 2024-10-26 21:00 | DRG 617 ==
LOC: ANHED 19:57 → ANHIMU 21:07 → ANH3MEDSUR 10-25 13:45 → ANHIMU 10-28 13:45
PROVIDERS: Anesthesiology; Nurse Practitioner; Registered Nurse; Surgery; Admitting Provider Internal Medicine; Emergency Provider Emergency Medicine; PCP Internal Medicine; Visit Provider Internal Medicine
PROC: 0Y6R0Z1 Detachment at Right 2nd Toe, High, Open Approach (ICD-10-PCS; principal; 2024-10-22 12:30)
DX: E11.69 Type 2 diabetes mellitus with other specified complication (principal); E87.1 Hypo-osmolality and hyponatremia; M86.671 Other chronic osteomyelitis, right ankle and foot; N39.0 Urinary tract infection, site not specified; R78.81 Bacteremia; I96 Gangrene, not elsewhere classified; N17.9 Acute kidney failure, unspecified; E11.621 Type 2 diabetes mellitus with foot ulcer; L03.031 Cellulitis of right toe; L97.519 Non-pressure chronic ulcer of other part of right foot with unspecified severity; I25.10 Atherosclerotic heart disease of native coronary artery without angina pectoris; I10 Essential (primary) hypertension; D64.9 Anemia, unspecified; E11.42 Type 2 diabetes mellitus with diabetic polyneuropathy; E87.5 Hyperkalemia; E78.5 Hyperlipidemia, unspecified; B95.62 Methicillin resistant Staphylococcus aureus infection as the cause of diseases classified elsewhere; B95.5 Unspecified streptococcus as the cause of diseases classified elsewhere; I25.2 Old myocardial infarction; Z95.5 Presence of coronary angioplasty implant and graft; Z87.11 Personal history of peptic ulcer disease; Z95.1 Presence of aortocoronary bypass graft; Z79.4 Long term (current) use of insulin; Z79.82 Long term (current) use of aspirin; Z93.4 Other artificial openings of gastrointestinal tract status; Z79.02 Long term (current) use of antithrombotics/antiplatelets
CPT/HCPCS: 36415; 36430; 71045; 73630; 80048; 80053; 80069; 80202; 81001; 82607; 82728; 82746; 82803; 82948; 83036; 83540; 83550; 83605; 83735; 84132; 84145; 84484; 85014; 85018; 85025; 85610; 85652; 85730; 86140; 86850; 86900; 86901; 86923; 87040; 87070; 87086; 87181; 87205; 88305; 88311; 93005; 94640; 96365; 96367; 96375; 97165; 99285; A9270; J0612; J0696; J0744; J1100; J1650; J1815; J1836; J2003; J2405; J2704; J3010; J3370; J7030; J7050; J7120; P9016

== ENCOUNTER 2025-08-03 20:09 | Inpatient (IN) | payer MEDICARE, MEDICAID, SELFPAY ==
--- OUTSIDE RECORDS SUMMARY | 2025-08-02 17:45 | XMS_ITS | Encounter Summary ---
Author Organization [facility] Address [address] [place] [address] Care Team Providers Care Welt Rougher Name Role Phone Torres Pedroza MD Primary Care Provider [phone] Buck Tran MD Unavailable [phone] Encounter Details Date Type Department Care Team (Late st Contact Info) Description 08/02/2025 5:45 PM SUSTAINABLE AGRICULTURE FACULTY - 08/02/2025 11:59 PM [facility] Hospital Encounter [facility] [address] [place] [address] Connor Mccollum MD [address] [address] Discharge Disposition: Home or Self Care (Routine Discharge) Social History Tobacco Use Types Packs/Day Years Used Date Smoking Tobacco: Never Smokeless Tobacco: Never Alcohol Use Standard Drinks/Week Comments No 0 (1 standard drink = 0.6 oz pur e alcohol) Comments Unknown Sex and Gender Information Value Date Recorded Sex Assigned at Not on file Legal Sex Female 1:34 AM CDT Gender Identity Not on file Sexual Orientation Not on file 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 Not on f ile Not on file Not on file documented as of this encounter Functional Status * RETIRED Are you deaf or do you have serious difficulty hearing Answer Date of Assessment Author Status No 04/06/2022 6:00 AM CDT Activ e * RETIRED Are you blind or do you have serious difficulty seeing, even when wearing glasses? Answer Date of Assessment Author Status No 04/06/2022 6:00 AM CDT Activ e * Do you have serious difficulty walking or climbing stairs? Answer Date of Assessment Author Status No 04/06/2022 6:00 AM Nia Badillo RN Active * Do you have difficulty dressing or bathing? Answer Date of Assessment Author Status No 04/06/2022 6:00 AM Nia Badillo RN Active * Because of a physical, mental, or emotional condition, do you have difficulty doing errands alone such as visiting a doctor's office or shopping? Answer Date of Assessment Author Status No 04/06/2022 6:00 AM Nia Badillo RN Active documented as of this encounter Mental Status * Because of a physical, mental, or emotional condition, do you have serious difficulty concentrating, remembering, or making decisions? Answer Entry Date Author Status No 04/06/2022 6:00 AM Nia Badillo RN Active documented in this encounter Medications at Time of Discharge aspirin 81 MG chewable tabletIndications :Anticoagulant Therapy Chew 1 tablet (81 mg total) by mouth daily. Indications: Anticoagulant Therapy 01/12/2014 BD INSULIN SYRINGE U/F 31G X 02/11 1 ML Misc USE TWICE A DAY TO INJECT INSULIN DIRECTED 11/25/2021 HUMULIN 70/30 (70-30) 100 UNIT/ML injectionIndicati ons:Diabetes Mellitus Inject 70 Units into the skin 2 (two) times daily before meals. Indications: Diabetes 70 units in the morning and 70 units at night 03/27/2020 isosorbide mononitrate ER (IMDUR) 30 MG 24 hr tablet Take 1 tablet (30 mg total) by mouth daily. 90 tablet 3 05/05/2024 losartan 100 MG tabletIndications :Hypertension Take 1 tablet (100 mg total) by mouth nightly at bedtime. Indications: High Blood Pressure Disorder at bedtime. 02/28/2022 METOPROLOL SUCCINATE ER 100 MG 24 hr tablet [The details of the medication are not available because there are pending changes by a home health clinician.] 90 tablet 3 05/28/2021 Multiple Vitamins-Minerals (HM MULTIVITAMIN ADULT GUMMY OR)Indications:Mullen pplement Take 1 each by mouth daily. Indications: Supplement 04/18/2022 NIFEdipine ER (ADALAT CC) 60 MG 24 hr tablet take 1 tablet by mouth every day 90 tablet 1 06/28/2024 NITROGLYCERIN 0.[address] 1 TABLET UNDER THE TONGUE EVERY 5 MINUTES NEEDED FOR CHEST PAIN. 25 tablet 2 11/19/2021 Mascot-3 Fatty Acids (EQL FISH OIL) 1000 MG CapIndications:[place] pplement Take 1,000 mg by mouth daily. Indications: Supplement 04/18/2022 pantoprazole EC (PROTONIX) 40 MG tablet Take 1 tablet (40 mg total) by mouth 2 (two) times daily. 12/23/2022 pioglitazone (ACTOS) 15 MG tablet Take 1 tablet (15 mg total) by mouth daily. 07/26/2023 rosuvastatin (CRESTOR) 20 MG tablet Take 1 tablet (20 mg total) by mouth daily. DIRECTED 07/20/2023 Senna (SENOKOT) 8.6 MG tabletIndications :Constipation Take 1 tablet (8.6 mg total) by mouth daily as needed. Indications: Constipation 04/18/2022 sucralfate (CARAFATE) 1 GM/10ML suspension SHAKE WELL AND TAKE 10 MLS BY MOUTH 4 TIMES A DAY BEFORE MEALS AND AT BEDTIME 12/31/2022 documented as of this encounter Plan of Treatment Pending Results Name Type Priority Associated Diagnoses Date /Time URINE BACTERIA CULTURE Microbiology Routine Dysuria 08/02/2025 4:30 PM SUSTAINABLE AGRICULTURE FACULTY documented as of this encounter Procedures Procedure Name Priority Date/Time Associated Diagnosis Comments HC URINALYSIS AUTO W/O MICRO Routine 08/02/2025 4:30 PM SUSTAINABLE AGRICULTURE FACULTY Dysuria URINE BACTERIA CULTURE Routine 08/02/2025 4:30 PM SUSTAINABLE AGRICULTURE FACULTY Dysuria URINALYSIS MICRO ONLY Routine 08/02/2025 4:30 PM SUSTAINABLE AGRICULTURE FACULTY documented in this encounter Results * URINALYSIS MICRO ONLY (08/02/2025 4:30 PM SUSTAINABLE AGRICULTURE FACULTY) WBC/HPF TOO NUMEROUS TO COUNT 0 - 5 /HPF 08/02/2025 6:17 PM SUSTAINABLE AGRICULTURE FACULTY [facility] RBC/HPF 0-5 0 - 5 /HPF 08/02/2025 6:17 PM [facility] EPI/HPF FEW /HPF 08/02/2025 6:17 PM [facility] BACTERIA (U) FEW /HPF 08/02/2025 6:17 PM [facility] 08/02/2025 4:30 PM SUSTAINABLE AGRICULTURE FACULTY Connorjulissa Mccollum MD URINE ORDERABLES Final Result [facility] [address] [place] [address], [place] [phone] * (ABNORMAL) URINALYSIS (08/02/2025 4:30 PM SUSTAINABLE AGRICULTURE FACULTY) COLOR (U) YELLOW 08/02/2025 6:17 PM [facility] TRANSPARENCY TURBID 08/02/2025 6:17 PM [facility] SPECIFIC GRAVITY (U) 1.020 1.000 - 1.030 08/02/2025 6:17 PM [facility] U PH 5.5 5.0 - 9.0 08/02/2025 6:17 PM [facility] LEUKOCYTES (U) 3+(A) NEGATIVE 08/02/2025 6:17 PM [facility] NITRITES NEGATIVE NEGATIVE 08/02/2025 6:17 PM [facility] PROTEIN RANDOM (U) 1+(A) NEGATIVE 08/02/2025 6:17 PM [facility] GLUCOSE (U) NEGATIVE NEGATIVE 08/02/2025 6:17 PM [facility] KETONES MG/DL (U) NEGATIVE NEGATIVE 08/02/2025 6:17 PM [facility] BILIRUBIN (U) NEGATIVE NEGATIVE 08/02/2025 6:17 PM SUSTAINABLE AGRICULTURE FACULTY [facility] BLOOD (U) 2+(A) NEGATIVE 08/02/2025 6:17 PM SUSTAINABLE AGRICULTURE FACULTY [facility] URINE SPECIMEN / Unknown 08/02/2025 4:30 PM SUSTAINABLE AGRICULTURE FACULTY [place] Connorjulissa Mccollum MD URINE ORDERABLES Final Result Performing Organization Address City/State/[facility] de Phone Number [facility] [address] [place] [address], documented in this encounter Visit Diagnoses Diagnosis Dysuria documented in this encounter Care Teams Welt Rougher Relationship Specialty Start Date End Date Torres Pedroza MD [address] [place] [address] PCP - General INTERNAL MEDICINE 12/14/18 Buck Tran MD [address] [facility] [address] [place] [address] Physician INTERVENTIONAL CARDIOLOGY 12/03/24 documented as of this encounter
--- NOTE | ~2025-08-03 | XR_ITS ---
EXAMINATION: XR chest 1V portable DATE: 08/05/2025 09:26 INDICATION: Shortness of breath TECHNIQUE: A single frontal view of the chest was obtained. COMPARISON: October 23, 2024 FINDINGS: The lungs are clear. No jazmin pulmonary edema or large effusion. Heart size normal. Sternal retention wires stable configuration. Bones and upper abdomen appear stable as well. IMPRESSION: 1. No focal acute process. Reviewed, dictated and finalized at location A. NSED PRACTICAL VOCATIONAL NURSE IMPRESSION: 1. No focal acute process.
--- NOTE | ~2025-08-03 | CT_ITS ---
EXAMINATION: CT chest abdomen pelvis wo con DATE: 08/03/2025 21:34 MEDICAL ENGINEER INDICATION: Acute renal failure TECHNIQUE: Computed tomography (CT) of the chest, abdomen, and pelvis was performed without intravenous contrast. The dose-length product was 627.74 mGy- cm. Automated exposure control and iterative reconstruction technique were employed. COMPARISON: CT dated 07/10/2024 FINDINGS: CHEST CT: There is dependent atelectasis. There are no suspicious pulmonary nodules or masses. There is atherosclerosis. Status post median sternotomy for CABG. No significant pleural or pericardial effusion. No thoracic lymphadenopathy. ABDOMEN/PELVIS CT: Fatty infiltration of the liver. The spleen, pancreas, adrenal glands and kidneys are unremarkable. There are gallstones. There is laxity of the anterior abdominal wall musculature with ventral hernia. No bowel obstruction. There is a stent in the superior mesenteric artery. There is stenosis of the renal arteries. There is an and ileostomy on the right. 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 No free air or free fluid. Colonic diverticulosis without evidence for diverticulitis. There is evidence of pelvic relaxation. Severe thoracic and lumbar spondylosis. IMPRESSION: 1. Cholelithiasis. 2: Pelvic relaxation. 3: No acute abnormality of the chest, abdomen or pelvis. Reviewed, dictated and finalized at location O. CAL ENGINEER
--- NOTE | ~2025-08-03 | US_ITS ---
EXAM/PROCEDURE: US renal BI HISTORY: Acute kidney injury COMPARISON: None available. TECHNIQUE: Bilateral renal ultrasound FINDINGS: Right kidney: 11.5 x 5.5 x 5.6 cm Left kidney: 11.6 and 5.1 x 5.2 cm. Echotexture for both kidneys appears slightly increased. No discrete lesion mass or hydronephrosis. The urinary bladder is markedly distended with no obvious abnormality seen. IMPRESSION: 1. Mildly increased echotexture of the kidneys may represent underlying medical renal disease. 2. Limited evaluation of the urinary bladder. Reviewed, dictated and finalized at location A. LE END SEWER
--- OUTSIDE RECORDS SUMMARY | 2025-08-03 16:51 | XMS_ITS | Encounter Summary ---
Author Organization 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 Not on f ile Not on [...] Badillo RN Active documented in this encounter Plan of Treatment Not on file documented as of this encounter Procedures Procedure Name Priority Date/Time Associated Diagnosis Comments PRO-BRAIN NATRIURETIC PEPTIDE Routine 08/03/2025 12:30 PM SEO ASSOCIATE Anemia, unspecified Heart failure ([facility]/HCC HHS/HCC) Chronic kidney disease, unspecified Diabetes mellitus ([facility]/HCC HHS/HCC) Hyperlipemia HEMOGLOBIN, GLYCOSYLATED Routine 08/03/2025 12:30 PM SEO ASSOCIATE Anemia, unspecified Heart failure ([facility]/HCC HHS/HCC) Chronic kidney disease, unspecified Diabetes mellitus ([facility]/HCC HHS/HCC) Hyperlipemia BASIC METABOLIC PANEL Routine 08/03/2025 12:30 PM SEO ASSOCIATE Anemia, unspecified Heart failure ([facility]/HCC HHS/HCC) Chronic kidney disease, unspecified Diabetes mellitus ([facility]/HCC HHS/HCC) Hyperlipemia CBC W/DIFF AUTOMATED Routine 08/03/2025 12:30 PM SEO ASSOCIATE Anemia, unspecified Heart failure ([facility]/HCC HHS/HCC) Chronic kidney disease, unspecified Diabetes mellitus ([facility]/HCC HHS/HCC) Hyperlipemia documented in this encounter Results * (ABNORMAL) BASIC METABOLIC PANEL (08/03/2025 12:30 PM SEO ASSOCIATE) GLUCOSE 245(H) 70 - 99 MG/DL 08/03/2025 5:51 PM [facility] BUN 95(HH) 7 - 18 MG/DL 08/03/2025 5:51 PM [facility] Comment: Critical Result(s) Called at: 17:49:26 on 08/03/2025 by: LOUIE SALDANA to and read back by:DANIELA DIAZ RN CREATININE S/P/B 8.03(HH) 0.55 - 1.02 MG/DL 08/03/2025 5:51 PM [facility] Comment: Critical Result(s) Called at: 17:49:56 on 08/03/2025 by: LOUIE SALDANA to and read back by:DANIELA DIAZ RN SODIUM S/P/B 123(L) 136 - 145 MMOL/L 08/03/2025 5:51 PM [facility] POTASSIUM S/P/B 7.2(HH) 3.5 - 5.1 MMOL/L 08/03/2025 5:51 PM [facility] Comment: Critical Result(s) Called at: 17:50:09 on 08/03/2025 by: LOUIE SALDANA to and read back by:DANIELA DIAZ RN&XD&&XA&&XD&&XA&REPEATED AND VERIFIED CHLORIDE S/P/B 95(L) 100 - 108 MMOL/L 08/03/2025 5:51 PM [facility] CO2 14.4(L) 21 - 32 MMOL/L 08/03/2025 5:51 PM [facility] CALCIUM S/P/B 8.0(L) 8.5 - 10.1 MG/DL 08/03/2025 5:51 PM [facility] ANION GAP 13.6 5 - 15 MMOL/L 08/03/2025 5:51 PM [facility] BUN CREATININE RATIO 11.8 6 - 26 08/03/2025 5:51 PM [facility] GFR ESTIMATE 5(L) >90 ML/MIN/1.7 3 M2 08/03/2025 5:51 PM [facility] Comment: NOTE: eGFR is not calculated for patients <18 years of age. This is an estimated GFR calculation using the new CKD EPI creatinine equation without race and so does not require a correction factor for race. This estimated GFR should not be used for calculating drug doses. 08/03/2025 12:3 0 PM SEO ASSOCIATE us Connorjulissa Mccollum MD LABORATORY Final Result [facility] [address] [place] [address], * (ABNORMAL) CBC W/DIFF AUTOMATED (08/03/2025 12:30 PM SEO ASSOCIATE) WBC 9.23 4.4 - 11.0 x10'3/uL 08/03/2025 5:10 PM [facility] RBC 2.92(L) 4.50 - 5.10 x10'6/uL 08/03/2025 5:10 PM [facility] HGB 9.0(L) 12.3 - 15.3 G/DL 08/03/2025 5:10 PM [facility] HCT 27.6(L) 35.9 - 44.6 % 08/03/2025 5:10 PM [facility] MCV 94.5 80.0 - 96.0 FL 08/03/2025 5:10 PM [facility] MCH 30.8 25.3 - 30.9 PG 08/03/2025 5:10 PM [facility] MCHC 32.6 31.0 - 34.1 G/DL 08/03/2025 5:10 PM [facility] RDW 13.2 12.4 - 15.1 % 08/03/2025 5:10 PM [facility] PLT 227 151 - 353 x10'3/uL 08/03/2025 5:10 PM [facility] MPV 10.4 9.6 - 12.0 FL 08/03/2025 5:10 PM [facility] RBC MORPHOLOGY NORMAL 08/03/2025 5:10 PM [facility] PLT MORPH. NORMAL 08/03/2025 5:10 PM [facility] WBC MORPHOLOGY NORMAL 08/03/2025 5:10 PM [facility] LYMPHOCYTES % 23.1 15.8 - 45.0 % 08/03/2025 5:10 PM [facility] NEUTROPHILS % 66.6 42.1 - 71.9 % 08/03/2025 5:10 PM [facility] MONOCYTES % 6.9 5.7 - 12.5 % 08/03/2025 5:10 PM [facility] EOSINOPHILS 1.8 0.0 - 5.6 % 08/03/2025 5:10 PM [facility] BASOPHILS 0.9 0.0 - 1.3 % 08/03/2025 5:10 PM [facility] ABS. NEUTROPHILS 6.15(H) 1.40 - 6.00 x10'3/uL 08/03/2025 5:10 PM [facility] IMMATURE GRANS % 0.7(H) 0.0 - 0.5 % 08/03/2025 5:10 PM [facility] ABS. LYMPHOCYTES 2.13 0.80 - 4.70 x10'3/uL 08/03/2025 5:10 PM [facility] 08/03/2025 12:3 0 PM SEO ASSOCIATE us Connor Mccollum MD LABORATORY Final Result Performing Organization Address [facility]/ZIP Co de Phone Number [facility] [address] [place] [address], [place] [phone] * (ABNORMAL) PRO-BRAIN NATRIURETIC PEPTIDE (08/03/2025 12:30 PM SEO ASSOCIATE) PRO-B TYPE NATRIURETIC PEPTIDE 1,959(H) <125 PG/ML 08/03/2025 5:51 PM SEO ASSOCIATE [facility] Comment: CUT POINTS ESTABLISHED BY INTERNATIONAL COLLABORATIVE ON NT PROBNP (ICON) STUDY (2005). AGE INDEPENDENT: <300 PG/ML HAS A 99% NEGATIVE PREDICTIVE VALUE FOR EXCLUDING ACUTE CHF <50 YEARS: >450 PG/ML IS CONSISTENT WITH ACUTE CHF 50-75 YEARS: >900 PG/ML IS CONSISTENT WITH ACUTE CHF >75 YEARS: >1800 PG/ML IS CONSISTENT WITH ACUTE CHF IN PATIENTS WITH RENAL INSUFFICIENCY (GFR <60), >1200 PG/ML YIELDS A DIAGNOSTIC SENSITIVITY AND SPECIFICITY OF 89% AND 72% FOR ACUTE CHF. 08/03/2025 12:3 0 PM SEO ASSOCIATE us Connor Mccollum MD LABORATORY Final Result Performing Organization Address [facility] Co de Phone Number [facility] [address] [place] [address], [place] [phone] * (ABNORMAL) HEMOGLOBIN, GLYCOSYLATED (08/03/2025 12:30 PM SEO ASSOCIATE) HGB A1C 7.5(H) <5.7 % 08/03/2025 5:14 PM SEO ASSOCIATE [facility] Comment: INCREASED RISK OF DIABETES <5.7% NON-DIABETES 5.7-6.4% INCREASED RISK FOR FUTURE DIABETES > OR = 6.5 CONSISTENT WITH DIABETES STANDARDS OF MEDICAL CARE IN DIABETES-2010 DIABETES CARE, 33(SUPP 1): S1-S61,2009 ESTIMATED AVG GLUCOSE 169 mg/dL 08/03/2025 5:14 PM SEO ASSOCIATE [facility] 08/03/2025 12:3 0 PM SEO ASSOCIATE Connorjulissa Mccollum MD LABORATORY Final Result [facility] [address] [place] [address], documented in this encounter Visit Diagnoses Diagnosis Anemia, unspecified Heart failure ([facility] HHS/[facility]) Heart failure Chronic kidney disease, unspecified Diabetes mellitus ([facility]) Diabetes mellitus Hyperlipemia Other and unspecified hyperlipidemia documented in this encounter Care Teams Button Clamper Relationship Specialty Start Date End Date Torres Pedroza MD [address] [place] [address] PCP - General INTERNAL MEDICINE 12/14/18 Buck Tran MD [address] [facility] [address] [address] Physician INTERVENTIONAL CARDIOLOGY 12/03/24 documented as of this encounter
[2025-08-03 20:43] VITALS: BP 140/94; PULSE 62; RESP 17; TEMP 36.7; O2SAT 100
[2025-08-03 20:46] LABS: Hematocrit 29.8 % (37.0-47.0); Hemoglobin 9.8 g/dL (12.0-15.0); Immature Granulocyte Percent A 0.6 % (0-0.5); Lymphocytes Absolute Auto 2.08 K/mm3 (0.9-3.2); Mean Corpuscular HGB Conc 32.9 g/dl (32-36); Mean Corpuscular Hemoglobin 30.5 pg (26-34); Mean Corpuscular Volume 92.8 fl (80-100); Nucleated Red Blood Cells Absolute Auto 0.000 K/mm3 (0.0-0.012); Nucleated Red Blood Cells Perc 0.0 % (0.0-0.2); Platelet Count Result 241 k/mm3 (150-375); Red Blood Count 3.21 M/mm3 (4.2-5.4); White Blood Count 8.7 K/mm3 (4.5-10.0)
--- NOTE | 2025-08-03 20:55 | ECG_ITS ---
Test Date: 2025-08-03 21:01:04 Measurements Intervals [place] Rate: 59 P: 89 NV: 190 QRS: 59 QRSD: 100 T: 81 QT: 396 QTc: 393 Interpretive Statements SINUS BRADYCARDIA WITH SINUS ARRHYTHMIA Compared to ECG 10/21/2024 19:44:10 Sinus rhythm no longer present T-wave abnormality no longer present Electronically Signed On 08-04-2025 08:53:11 [employer] by Greg Jamison M.D.
[2025-08-03 20:58] LABS: Alanine Aminotransferase 13 U/L (6-35); Albumin Level 4.2 g/dL (3.5-5.1); Alkaline Phosphatase 90 U/L (38-126); Anion Gap 14 mmol/L (4-12); Aspartate Amino Transferase 19 U/L (14-36); Bilirubin,Total 0.6 mg/dL (0.2-1.3); Blood Urea Nitrogen 89 mg/dL (7-17); Calcium 8.9 mg/dL (8.4-10.2); Carbon Dioxide 13 mmol/L (22-30); Chloride 102 mmol/L (98-107); Estimated CRCL calculation 5 ml/min; Estimated Glomerular Filt Rate 5; Glucose 78 mg/dL (65-110); Potassium 6.3 mmol/L (3.4-5.0); Sodium 129 mmol/L (137-145); Total Protein 8.0 g/dL (6.3-8.2)
[2025-08-03 21:13] LABS: NT Pro B Type Natriuretic Pept 2210 pg/mL (19.9-100)
[2025-08-03 21:18] LABS: Add Urine Microscopic? YES; Appearance Urine Turbid (Clear); Glucose Urine UA Negative (Negative); Leukocyte Esterase Ur 3+ LEU/UL (Negative); Need Manual Microscopic Reviewed; Nitrate Urine Negative (Negative); Specific Grav Ur 1.012 (1.001-1.035)
[2025-08-03] MEDS: SODIUM ZIRCONIUM CYCLOSILICATE 10 GM POWD.PACK PO (21:46)
[2025-08-03] MEDS: INSULIN HUMAN REGULAR (*BKC) 100 UNITS/ML 10 UNITS IV PUSH (21:50)
[2025-08-03] MEDS: DEXTROSE 50% 25 GM/50 ML SYRINGE IV PUSH (21:50)
--- NOTE | 2025-08-03 21:52 | ED.GENADULT ---
HPI - General Adult General Chief complaint: Recheck/Abnormal Lab/Rx Stated complaint: ABNORMAL HIGH LABS Time Seen by Provider: 08/03/25 20:09 History of Present Illness HPI narrative: This is a 70-year-old female presenting for abnormal labs. Patient was sent in because she elevated BUN creatinine and a urinary tract infection. Patient herself says that she has felt slightly nauseous over the last several days but otherwise has no complaints. She denies fevers headaches chest pain difficulty breathing abdominal pain urinary symptoms. Related Data Home Medications ?Medication ?Instructions ?Recorded ?Confirmed ?Last Taken ?Type metoprolol succinate 100 mg 50 mg PO BID 04/23/22 12/16/24 10/21/24 History tablet,extended release 24 hr aspirin 81 mg capsule 81 mg PO DAILY 08/08/22 12/16/24 10/21/24 History insulin human U-100 NPH-regulr 50 unit subcut BID 08/08/22 12/16/24 10/21/24 History 70-30 mix 100 unit/mL subcutaneous susp (Humulin 70/30 U-100 Insulin) rosuvastatin 20 mg tablet 20 mg PO DAILY 04/06/24 12/16/24 10/21/24 History sucralfate 100 mg/mL oral 10 ml PO ACHS 04/06/24 12/16/24 10/21/24 History suspension amiodarone 200 mg tablet 200 mg PO BID 07/09/24 12/16/24 10/21/24 History clopidogrel 75 mg tablet 75 mg PO DAILY 07/09/24 12/16/24 10/21/24 History pantoprazole 40 mg tablet,delayed 20 mg PO DAILY 07/09/24 12/16/24 10/21/24 History release magnesium oxide 400 mg PO BID 10/22/24 12/16/24 10/21/24 History sertraline 25 mg tablet 25 mg PO DAILY 10/22/24 12/16/24 10/21/24 History Allergies Allergy/AdvReac Type Severity Reaction Status Date / Time cephalexin (Keflex) Allergy Intermediate Hives Verified 08/03/25 21:36 [facility] Past Medical History Medical History Anxiety Esophagitis with gastritis Peptic ulcer of stomach Insulin dependent type 2 diabetes mellitus Pneumonia due to COVID-19 virus (04/05/22) Coronary artery disease (11/04/17) Non-STEMI (non-ST elevated myocardial infarction) (04/06/22) Hypertension Hyperlipidemia Surgical History Surgical History History of amputation of right second toe 10/22/[address]nd toe am[address] Dr. Hernadez History of partial colectomy History of four vessel coronary artery bypass graft (05/2024) [facility] History of coronary artery stent placement History of appendectomy Family History Family History Father CHF (congestive heart failure) Mother Hypertension Social History Social History Social History: Surrogate medical decision maker: Babatunde Prakash, son ([phone]). Code status: Full code. Alcohol intake: never Alcohol use details: rare alcohol use only in small amounts Substance use: never Substance use type: does not use Do You Feel Safe in your Home?: Yes Lack of Transportation: No Lack of Food: Never True Current Housing: I Have Housing Concerned About Future Housing: No Difficulty Paying Gas/Electric Bills: No Difficulty Paying for Meds: No Currently Unemployed: No Education: High School Diploma/GED Difficulty w/ Childcare or Family Care: No Living arrangements: with family Additional living arrangements comments: She lives with her brother and her beagle Vick. She has 1 son. 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 Spiritual care concerns: No Exam Narrative: APPEARANCE: No apparent distress. Head: atraumatic. EYES: EOMI, NOSE: Atraumatic NECK: Trachea midline RESPIRATORY: No increased rate of breathing clear to auscultation CARDIOVASCULAR: RRR, no peripheral edema ABDOMINAL: ileostomy x2, MUSCULOSKELETAl: No obvious deformities NEURO: Alert. Moving 4/4 extremities SKIN:: Warm, dry. Normal color PSYCHIATRIC: Normal affect Course Vital Signs Vital signs: Vital Signs Temperature 98.0 F 08/03/25 20:43 Pulse Rate 62 08/03/25 20:43 Respiratory Rate 17 08/03/25 20:43 Blood Pressure 140/94 H 08/03/25 20:43 Pulse Oximetry 100 08/03/25 20:43 Oxygen Delivery Room Air 08/03/25 20:43 Temperature 98.0 F 08/03/25 20:43 Pulse Rate 62 08/03/25 20:43 Respiratory Rate 17 08/03/25 20:43 Blood Pressure 140/94 H 08/03/25 20:43 Pulse Oximetry 100 08/03/25 20:43 Oxygen Delivery Room Air 08/03/25 20:43 Medical Decision Making MDM Narrative Medical decision making narrative: -Course: 70-year-old female presenting with abnormal labs. The on exam she looks well overall has stable vital signs. Laboratory studies showed acute kidney failure with BUN of 89 and creatinine 7.94. Potassium is 6.3. EKG shows sinus bradycardia with a T-waves as compared to priors. Patient given insulin, dextrose, bicarb, Lokelma and calcium gluconate. Urine was indicative infection she was started on ceftriaxone given 30 cc/kilogram bolus lactated Ringer's. CT chest abdomen pelvis without causative findings.Patient be admitted the hospital further management of her acute kidney failure urinary tract infection. Nephro consulted. -DDX includes but is not limited to: Dehydration, sepsis, acute kidney injury, medication side effect, urinary tract infection, pneumonia, bacteremia Vital Signs Vital Signs: Vital Signs Temperature 98.0 F 08/03/25 20:43 Pulse Rate 62 08/03/25 20:43 Respiratory Rate 17 08/03/25 20:43 Blood Pressure 140/94 H 08/03/25 20:43 Pulse Oximetry 100 08/03/25 20:43 Oxygen Delivery Room Air 08/03/25 20:43 Temperature 98.0 F 08/03/25 20:43 Pulse Rate 62 08/03/25 20:43 Respiratory Rate 17 08/03/25 20:43 Blood Pressure 140/94 H 08/03/25 20:43 Pulse Oximetry 100 08/03/25 20:43 Oxygen Delivery Room Air 08/03/25 20:43 Lab Data 08/03/25 20:41 08/03/25 20:41 Labs: Lab Results 08/03/25 08/03/25 Range/Units 20:41 20:58 WBC 8.7 (4.5-10.0) K/mm3 RBC 3.21 L (4.2-5.4) M/mm3 Hgb 9.8 L (12.0-15.0) g/dL Hct 29.8 L (37.0-47.0) % MCV 92.8 (80-100) fl MCH 30.5 (26-34) pg MCHC 32.9 (32-36) g/dl RDW 13.3 (11.5-14.5) % Plt Count 241 (150-375) k/mm3 MPV 9.6 (7.4-10.4) fl Immature Gran % (Auto) 0.6 H (0-0.5) % Neut % (Auto) 65.7 (45.5-73.1) % Lymph % (Auto) 23.8 (18.3-44.2) % [place] % (Auto) 6.9 (2.6-8.5) % Eos % (Auto) 2.3 (0-4.4) % Baso % (Auto) 0.7 (0.2-1.2) % Lymph # (Auto) 2.08 (0.9-3.2) K/mm3 [place] # (Auto) 0.6 (0.1-0.6) K/mm3 Eos # (Auto) 0.2 (0-0.3) K/mm3 Baso # (Auto) 0.1 (0.0-0.1) K/mm3 Abs Immat Gran (auto) 0.05 H (0.00-0.031) K/mm3 Absolute Neuts (auto) 5.8 (1.3-6.7) K/mm3 Absolute Nucleated RBC 0.000 (0.0-0.012) K/mm3 Nucleated RBC % 0.0 (0.0-0.2) % Sodium 129 L (137-145) mmol/L Potassium 6.3 H* (3.4-5.0) mmol/L Chloride 102 (98-107) mmol/L Carbon Dioxide 13 L (22-30) mmol/L Anion Gap 14 H (4-12) mmol/L BUN 89 H D (7-17) mg/dL Creatinine 7.94 H (0.7-1.0) mg/dL Estim Creat Clear Calc 5 ml/min Estimated GFR 5 L (59 - ) Glucose 78 (65-110) mg/dL Calcium 8.9 (8.4-10.2) mg/dL Total Bilirubin 0.6 (0.2-1.3) mg/dL AST 19 (14-36) U/L ALT 13 (6-35) U/L Alkaline Phosphatase 90 (38-126) U/L NT-Pro-B Natriuret Pep 2210 H (19.9-100) pg/mL Total Protein 8.0 (6.3-8.2) g/dL Albumin 4.2 (3.5-5.1) g/dL Urine Color Yellow (Yellow) Urine Appearance Turbid H (Clear) Urine pH 5.0 (5.0-9.0) Ur Specific [place] 1.012 (1.001-1.035) Urine Protein 1+ H (Negative) mg/dL Urine Glucose (UA) Negative (Negative) mg/dL Urine Ketones Negative (Negative) mg/dL Ur Blood (Man) 1+ H (Negative) Urine Nitrate Negative (Negative) Urine Bilirubin Negative (Negative) Urine Urobilinogen 0.2 (<2.0) mg/dL Add Ur Microanalysis Reviewed Leukocyte Esterase Rfl 3+ H (Negative) MILLI/UL Urine RBC 0-2 (0-2) /hpf Urine WBC >100 H (0-3) /hpf Ur Squamous Epith Cells Occasional (Few) /hpf Urine Bacteria 4+ H /hpf Urine Casts 3-5 Discharge Plan Discharge Clinical Impression: Acute kidney failure, Acute hyperkalemia Patient Disposition: Still a Patient Condition: Stable Patient Language: Welsh Prescriptions: No Action sucralfate 100 mg/mL suspension 10 ml PO ACHS rosuvastatin 20 mg tablet 20 mg PO DAILY amiodarone 200 mg tablet 200 mg PO BID clopidogrel 75 mg tablet 75 mg PO DAILY pantoprazole 40 mg tablet,delayed release (DR/EC) 20 mg PO DAILY calcium polycarbophil [Fiber (calcium polycarbophil)] 625 mg Tablet 625 mg PO QAM Qty: 30 0RF dicyclomine 10 mg Capsule 10 mg PO QID Qty: 90 0RF magnesium oxide 400 mg magnesium capsule 400 mg PO BID sertraline 25 mg tablet 25 mg PO DAILY ceftriaxone 2 gram Recon Soln 2 g IV Q24H Qty: 2 0RF Rx Instructions: give on 10/27/2024 and 10/28/2024 losartan 100 mg tablet 50 mg PO DAILY Qty: 30 0RF metoprolol succinate 100 mg tablet extended release 24 hr 50 mg PO BID aspirin 81 mg Capsule 81 mg PO DAILY Humulin 70/30 U-100 Insulin 100 unit/mL (70-30) suspension 50 unit SUBCUT BID alprazolam 0.5 mg tablet 0.5 mg PO BID PRN (Reason: anxiety) Qty: 20 0RF Follow-up/Referrals: Connor Mccollum MD [Primary Care Provider, Family Practice]
[2025-08-03] MEDS: LACTATED RINGERS 1,000 ML 999 ML IV CONT ×2 (21:55→22:43)
[2025-08-03] MEDS: CALCIUM GLUCONATE 1,000 MG/10 ML VIAL 1000 MG IV PUSH (22:38)
[2025-08-03] MEDS: SODIUM BICARBONATE 8.4% 50 MEQ/50 ML SYRINGE IV PUSH (22:39)
[2025-08-03] MEDS: cefTRIAXone 1 GM in SODIUM CHLORIDE 0.9% IV 50 ML 100 ML IVPB (22:41)
[2025-08-03 22:46] VITALS: BP 153/56; PULSE 67; RESP 14; TEMP 36.5; O2SAT 100
[2025-08-03 23:22] VITALS: BP 116/50; PULSE 67; RESP 20; TEMP 36.4; O2SAT 100
[2025-08-03 23:27] VITALS: BMI 26.6
--- NOTE | 2025-08-03 23:28 | ADMGEN ---
This patient, Sujata Prakash, was admitted to [facility] Surg Room 303-01. Patient/family oriented to hospital policies and general routines including ID bracelet, bed and alarms, visiting hours, pain management, procedures, bathroom and other care routines, personal items, smoking policy, room service/diet, and visiting hours. Information on how to activate the Rapid Response Team has been discussed. Patient/Family are encouraged to report perceived risks to care and to ask questions if they do not understand what they are told or what they should do.
--- NOTE | 2025-08-03 23:42 | PM.IMHP ---
H&P: HPI History of Present Illness Date/Time: 08/03/25 23:42 Chief Complaint: Urinary symptoms and abnormal labs. Narrative: This is a 70-year-old female patient who had been complaining about abdominal pain a week ago and had a CT scan at [facility]. She is currently staying at [facility] in [place] and currently developed urinary symptoms. She stated that she had been dribbling and urinating frequently been only in small amounts. She has had no prior history of any chronic kidney disease. She is currently complaining of lower back pain from lying in the bed. The patient was sent to the emergency room for elevated BUN and creatinine with a urinary tract infection. She stated when she had her CT scan recently (one week ago) , her labs were normal. Her H&H is 9.8 and 29.8 which is improved from her previous labs. Her sodium is 129 which appears to be her baseline. Potassium is 5.7. BUN is 87 creatinine 6.87. Her GFR is low at 67 with a previous value of 57 on a 10/26/2024. Her urine is turbid was 1+ blood, 3+ leukocyte esterase, greater than 100 wbc's, and 4+ bacteria. Chest/abdomen/pelvis CT today impression cholelithiasis, pelvic relaxation, no acute abnormality the chest abdomen or pelvis. She has fatty infiltration of the liver. She does have an ileostomy and a colostomy. The patient was started on IV fluids and ceftriaxone. She was given D50, insulin, calcium gluconate, Lokelma, and bicarb. Nephrology has been consulted. The patient is being admitted to inpatient status on the date of service of 08/03/2025. Review of Systems Constitutional: Constitutional: Reports as per HPI and Reports no additional constitutional complaints Eyes: Eyes: Reports as per HPI and Reports no additional eye complaints ENT: Reports system reviewed and no additional complaints, except as documented and Reports Normal hearing present Cardiovascular: Cardiovascular: Reports no additional cardiovascular complaints Respiratory: Respiratory: Reports as per HPI and Reports no additional respiratory complaints Gastrointestinal: Gastrointestinal: Reports as per HPI and Reports no additional gastrointestinal complaints Genitourinary: Genitourinary: Reports no additional female genitourinary complaints Musculoskeletal: Musculoskeletal: Reports no additional musculoskeletal complaints Integumentary/Breasts: Skin/Breast: Reports system reviewed and no additional complaints, except as docu Neurologic: Reports system reviewed and no additional complaints, except as documented and Reports Normal hearing present Psychiatric: Psychiatric: Reports no additional psychiatric complaints and Reports as per HPI Hematologic/Lymphatic: Hematologic/Lymphatic: Reports no additional hematologic/lymphatic complaints Allergic/Immunologic: Allergic/Immunologic: Reports no additional allergic/immunologic complaints [facility] Past Medical History Medical History (Updated 08/05/25 @ 16:43 by Leeann Mckinney MD) Atherosclerotic heart disease of [place] coronary artery without angina pectoris Urinary tract infection Essential hypertension Acute hyperkalemia Acute dehydration Acute kidney failure Ischemic bowel disease Anxiety Esophagitis with gastritis Peptic ulcer of stomach Insulin dependent type 2 diabetes mellitus Pneumonia due to COVID-19 virus (04/05/22) Coronary artery disease (11/04/17) Non-STEMI (non-ST elevated myocardial infarction) (04/06/22) Hypertension Hyperlipidemia Surgical History Surgical History (Updated 08/04/25 @ 00:39 by Helena Arndt APRN) H/O cardiac catheterization History of amputation of right second toe 10/22/[address]nd [address] am[address] Dr. 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 She is . She only has the 1 son who she now been 8 to be her durable power associate attorney for healthcare. She is currently staying at the [facility] rehab facility in [place]. Surrogate medical decision maker: Babatunde Prakash, son ([phone]). Code status: Full code. Second hand tobacco smoke exposure: No Alcohol intake: never Alcohol use details: rare alcohol use only in small amounts Substance use: never Substance use type: does not use Do You Feel Safe in your Home?: Yes Lack of Transportation: No Lack of Food: Never True Current Housing: I Have Housing Concerned About Future Housing: No Difficulty Paying Gas/Electric Bills: No Difficulty Paying for Meds: No Currently Unemployed: No Education: High School Diploma/GED Difficulty w/ Childcare or Family Care: No Living arrangements: with family Additional living arrangements comments: She lives with her brother and her bebridgettee Vick. She has 1 son. Occupation/Education: retired Additional occupation/education comments: Worked in a long-term and in the cafeteria for the [employer]. Spiritual care concerns: No Meds Home Medications and Allergies Home Medications ?Medication ?Instructions ?Recorded ?Confirmed ?Type metoprolol succinate 100 mg 50 mg PO BID 04/23/22 08/03/25 History tablet,extended release 24 hr aspirin 81 mg capsule 81 mg PO DAILY 08/08/22 08/03/25 History insulin human U-100 NPH-regulr 50 unit subcut BID 08/08/22 08/03/25 History 70-30 mix 100 unit/mL subcutaneous susp (Humulin 70/30 U-100 Insulin) rosuvastatin 20 mg tablet 20 mg PO HS 04/06/24 08/03/25 History sucralfate 100 mg/mL oral 10 ml PO ACHS 04/06/24 08/03/25 History suspension amiodarone 200 mg tablet 200 mg PO BID 07/09/24 08/03/25 History clopidogrel 75 mg tablet 75 mg PO DAILY 07/09/24 08/03/25 History pantoprazole 40 mg tablet,delayed 20 mg PO DAILY 07/09/24 08/03/25 History release dicyclomine 10 mg capsule 10 mg PO QID #90 caps 07/20/24 08/03/25 Rx magnesium oxide 400 mg PO BID 10/22/24 08/03/25 History sertraline 25 mg tablet 25 mg PO DAILY 10/22/24 08/03/25 History acetaminophen 325 mg capsule 650 mg PO Q6H PRN pain 08/03/25 08/03/25 History calcium polycarbophil 625 mg 625 mg PO DAILY 08/03/25 08/03/25 History tablet (Fiber (calcium polycarbophil)) cetirizine 10 mg tablet (24Hour 10 mg PO DAILY 08/03/25 08/03/25 History Allergy) diphenoxylate-atropine 2.5 2 tablet PO BID PRN diarrhea 08/03/25 08/03/25 History mg-0.025 mg tablet (Lomotil) insulin lispro 100 unit/mL 1 sliding scale dose subcut 08/03/25 08/03/25 History subcutaneous solution (Humalog USEASDIRECTD U-100 Insulin) losartan 100 mg tablet 25 mg PO DAILY 08/03/25 08/03/25 History ondansetron HCl 4 mg tablet 4 mg PO Q8H PRN nausea and vomiting 08/03/25 08/03/25 History cefdinir 300 mg capsule 300 mg PO Q12H #4 caps 08/08/25 Rx sodium bicarbonate 650 mg tablet 650 mg PO BID #60 tabs 08/08/25 Rx Allergies Allergy/AdvReac Type Severity Reaction Status Date / Time cephalexin (Keflex) Allergy Intermediate Hives Verified 08/03/25 23:45 Vital Signs Vital Signs - 24 hr 08/03/25 20:43 08/03/25 22:46 08/03/25 23:22 Temperature 98.0 F 97.7 F 97.6 F Pulse Rate 62 67 67 Respiratory Rate 17 14 20 Blood Pressure 140/94 H 153/56 H 116/50 L Pulse Oximetry 100 100 100 Oxygen Delivery Room Air Exam Const: General: cooperative, healthy appearing, comfortable, no acute distress, well developed, awake, Physically active, average body habitus and well nourished Nutritional Appearance: average body habitus and well nourished Orientation/consciousness: oriented to person, oriented to place, oriented to time and patient oriented x3 Limitations: no limitations HENMT: Head: normal to inspection, No palpable skull fracture present and normocephalic Eyes: General: appearance normal, both eyes and all related structures Alignment and Position: alignment normal Periorbital: periorbital findings normal Eyelids: eyelids normal EOM: EOMs intact bilaterally Neck: Neck: normal visual inspection, full ROM and no lymphadenopathy Chest: Chest palpation & inspection: normal inspection of the chest Resp: Effort & Inspection: normal respiratory effort Auscultation: clear to auscultation bilaterally Percussion: percussion normal Cardio: Palpation: normal PMI Rate: regular rate Rhythm: regular rhythm Heart sounds: S1 normal heart sound present and S2 normal heart sound present Peripheral pulses: Peripheral pulses 2+ throughout GI: Inspection: normal to inspection Auscultation: normal bowel sounds Other: Ileostomy and colostomy bag intact. 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 Neuro: General: oriented to person, oriented to place, oriented to time and patient oriented x3 Cranial nerves: Yes Normal hearing present Cognition (Neuro): normal cognition Speech: normal speech Motor exam (neuro): 5/5 motor strength present throughout Sensory Exam: normal sensation Extrem: General: normal to inspection Right upper extremity: normal to inspection and shoulder/upper arm Left upper extremity: normal to inspection and shoulder/upper arm Right lower extremity: foot Left lower extremity: normal to inspection Other: Previous history of 2nd right toe amputated Psych: Appearance: grossly normal Mental Status: mental status grossly normal Speech and movement: Normal speech and movement present Affect: normal affect Attitude: cooperative H&P: Results Labs Labs: Short CBC 08/03/25 Range/Units 20:41 WBC 8.7 (4.5-10.0) K/mm3 Hgb 9.8 L (12.0-15.0) g/dL Hct 29.8 L (37.0-47.0) % Plt Count 241 (150-375) k/mm3 BMP 08/03/25 20:41 Sodium 129 L Potassium 6.3 H* Chloride 102 Carbon Dioxide 13 L BUN 89 H D Creatinine 7.94 H Glucose 78 Calcium 8.9 Liver Function 08/03/25 Range/Units 20:41 Total Bilirubin 0.6 (0.2-1.3) mg/dL AST 19 (14-36) U/L ALT 13 (6-35) U/L Alkaline Phosphatase 90 (38-126) U/L Albumin 4.2 (3.5-5.1) g/dL Urine 08/03/25 Range/Units 20:58 Urine Color Yellow (Yellow) Urine Appearance Turbid H (Clear) Urine pH 5.0 (5.0-9.0) Ur Specific [place] 1.012 (1.001-1.035) Urine Protein 1+ H (Negative) mg/dL Urine Glucose (UA) Negative (Negative) mg/dL ECG Interpretation: SINUS BRADYCARDIA WITH SINUS ARRHYTHMIA Compared to ECG 10/21/2024 19:44:10 Sinus rhythm no longer present T-wave abnormality no longer present Imaging CT scan - abdomen: Radiologist's impression: Impressions Chest/Abdomen/Pelvis CT 08/03/25 21:34 IMPRESSION: 1. Cholelithiasis. 2: Pelvic relaxation. 3: No acute abnormality of the chest, abdomen or pelvis. Assessment and Plan Assessment and plan (1) Acute kidney injury: Code(s): N17.9 - Acute kidney failure, unspecified Status: Acute Assessment and Plan: -her BUN is now 87 down from 89 creatinine is now 6.87 down from 7.94 her GFR is 6 with a previous level 57-58. -renal ultrasound has been ordered. -may be related to her dehydration. -hold toxic medication currently aspirin and losartan are on hold. -continue with IV fluids. -nephrology consult has been placed. -check daily BMP - acute renal failure protocol initiated (2) Acute hyperkalemia: Code(s): E87.5 - Hyperkalemia Status: Acute Assessment and Plan: Most likely secondary to acute kidney injury. -losartan is on hold. -patient was given combination medication in the emergency room. -her repeat potassium came down to 5.7 from 6.3. Will repeat the concoction that she received in the emergency room. This includes calcium gluconate, sodium bicarb, and Lokelma. I would not give the D50 or the insulin as her blood sugars have been in the 60s. -check daily BMP -telemetry. She does have some peaked T-waves. (3) Urinary tract infection: Code(s): N39.0 - Urinary tract infection, site not specified Status: Acute Assessment and Plan: -urine and blood cultures are pending. -patient was started on Rocephin. -she does not appear to be toxic at this time are septic. -Her urine is turbid was 1+ blood, 3+ leukocyte esterase, greater than 100 wbc's, and 4+ bacteria (4) Acute anemia: Code(s): D64.9 - Anemia, unspecified Status: Acute Assessment and Plan: -she has anemia of chronic disease. Patient is above her baseline. (5) Acute hyponatremia: Code(s): E87.1 - Hypo-osmolality and hyponatremia Status: Acute Assessment and Plan: -Most likely secondary to dehydration. -continue with IV fluids. -her sodium is chronically low. -check urine sodium and urine osmolality and blood osmolality -check daily BMP (6) Type 2 diabetes mellitus with hyperglycemia, with long-term current use of insulin: Code(s): E11.65 - Type 2 diabetes mellitus with hyperglycemia; Z79.4 - custodial (current) use of insulin Status: Acute Assessment and Plan: -Accu-Cheks AC and HS with sliding scale insulin. -check A1c. -her blood sugar was on the lower side earlier. Her blood sugar was 78-69. (7) Hyperlipidemia: Code(s): E78.5 - Hyperlipidemia, unspecified Status: Acute Assessment and Plan: -continue with Crestor (8) Coronary artery disease: Onset Date: 11/04/17 Code(s): I25.10 - Atherosclerotic heart disease of [place] coronary artery without angina pectoris Status: Chronic Assessment and Plan: -continue with aspirin -continue with clopidogrel -continue with Crestor -continue with metoprolol (9) Hypertension: Qualifiers: Hypertension type: primary hypertension Qualified Code(s): I10 - Essential (primary) hypertension Code(s): I10 - Essential (primary) hypertension Status: Chronic Assessment and Plan: -continue with metoprolol if blood pressure allows -continue with amiodarone. -blood pressure 153/55. (10) Cholelithiasis: Code(s): K80.20 - Calculus of gallbladder without cholecystitis without obstruction Status: Acute Assessment and Plan: -the patient had abdominal pain approximately 1 week ago. May consider surgical consult if discomfort continues. Plan The patient has an ileostomy and colostomy intact. Wound care consult has been placed. The patient stated that she is wanting her ostomies reversed but requires of colonoscopy 1st. Quality VTE Prophylaxis VTE prophylaxis: mechanical ordered
[2025-08-04] VITALS (11 sets, daily range): BP systolic 115–153; BP diastolic 36–55; PULSE 61–69; RESP 12–20; TEMP 35.9–36.6; O2SAT 97–100
[2025-08-04 00:19] LABS: Anion Gap 12 mmol/L (4-12); Blood Urea Nitrogen 87 mg/dL (7-17); Calcium 8.8 mg/dL (8.4-10.2); Carbon Dioxide 16 mmol/L (22-30); Chloride 101 mmol/L (98-107); Estimated CRCL calculation 6 ml/min; Estimated Glomerular Filt Rate 6; Glucose 69 mg/dL (65-110); Potassium 5.7 mmol/L (3.4-5.0); Sodium 129 mmol/L (137-145)
[2025-08-04 01:06] LABS: Hemoglobin A1C 6.7 % (<5.7)
[2025-08-04] MEDS: CALCIUM GLUC 1,000 MG/NS 50 ML 1,000 MG/50 ML BAG 100 MG IVPB (01:24)
[2025-08-04] MEDS: ACETAMINOPHEN 325 MG TABLET 650 MG PO (01:25)
[2025-08-04] MEDS: SODIUM ZIRCONIUM CYCLOSILICATE 10 GM POWD.PACK PO ×3 (01:25→23:31)
[2025-08-04] MEDS: SODIUM BICARBONATE 8.4% 50 MEQ/50 ML SYRINGE IV PUSH (01:26)
[2025-08-04 04:49] LABS: Total Protein Urine Random 20 mg/dL; Ur Ttl Prot Creatinine Ratio 0.29 mg/mg (0-0.20)
[2025-08-04 05:13] LABS: Urine Eos QC 2nd Tech Confirmed
[2025-08-04] MEDS: SUCRALFATE SUSP 100 MG/ML 10 ML UDC 1000 MG PO ×4 (05:14→20:45)
[2025-08-04 05:17] LABS: Hematocrit 24.1 % (37.0-47.0); Hemoglobin 8.1 g/dL (12.0-15.0); Mean Corpuscular HGB Conc 33.6 g/dl (32-36); Mean Corpuscular Hemoglobin 30.9 pg (26-34); Mean Corpuscular Volume 92.0 fl (80-100); Platelet Count Result 183 k/mm3 (150-375); Red Blood Count 2.62 M/mm3 (4.2-5.4); White Blood Count 7.2 K/mm3 (4.5-10.0)
[2025-08-04 05:35] LABS: Alanine Aminotransferase 12 U/L (6-35); Albumin Level 3.3 g/dL (3.5-5.1); Alkaline Phosphatase 79 U/L (38-126); Anion Gap 10 mmol/L (4-12); Aspartate Amino Transferase 17 U/L (14-36); Bilirubin,Total 0.4 mg/dL (0.2-1.3); Blood Urea Nitrogen 84 mg/dL (7-17); CRP 0.5 mg/dL (<1.0); Calcium 8.5 mg/dL (8.4-10.2); Carbon Dioxide 17 mmol/L (22-30); Chloride 103 mmol/L (98-107); Creatine Kinase 95 U/L (30-135); Estimated CRCL calculation 7 ml/min; Estimated Glomerular Filt Rate 7; Glucose 127 mg/dL (65-110); Potassium 5.3 mmol/L (3.4-5.0); Sodium 130 mmol/L (137-145); Total Protein 6.4 g/dL (6.3-8.2)
[2025-08-04 06:08] LABS: Hepatitis B Surface Antigen Negative (Negative)
[2025-08-04 06:13] LABS: Hepatitis B Core IgM Result Negative (Negative)
[2025-08-04 06:14] LABS: HIV 1/2 Ab P24 Ag Result Negative (Negative)
[2025-08-04 06:25] LABS: Hepatitis B Surface Anti Res Negative
[2025-08-04] MEDS: AMIODARONE HCL 200 MG TABLET PO ×2 (08:38→20:44)
[2025-08-04] MEDS: CLOPIDOGREL BISULFATE 75 MG TABLET PO (08:39)
[2025-08-04] MEDS: DICYCLOMINE HCL 10 MG CAPSULE PO ×4 (08:39→20:44)
[2025-08-04] MEDS: SERTRALINE HCL 25 MG TABLET PO (08:39)
[2025-08-04] MEDS: ASPIRIN 81 MG ENTERIC TABLET PO (08:39)
[2025-08-04] MEDS: LORATADINE 10 MG TABLET PO (08:39)
[2025-08-04] MEDS: METOPROLOL SUCCINATE EXT REL 50 MG TABCR PO ×2 (08:39→20:44)
[2025-08-04] MEDS: PANTOPRAZOLE SOD SESQUIHYDRATE 20 MG TAB PO (08:45)
--- NOTE | 2025-08-04 08:47 | PC.NURSE ---
Glucose 103 this am but did not cross over to computer
[2025-08-04] MEDS: INSULIN ASPART (*BKC) 100 UNITS/ML SUB-Q ×2 (12:11→16:52)
--- NOTE | 2025-08-04 13:50 | P.CONNP_ITS ---
Assessment and Plan Assessment and plan (1) Acute kidney injury: Code(s): N17.9 - Acute kidney failure, unspecified Status: Acute Assessment and Plan: * as noted by admission labs (creatinine 7.94mg/dl) * normal creatinine at baseline (by September 2024 discharge labs from here) * however, may have some underlying CKD based on outpatient labs: * creatinine 1.19mg/dl in late September 2024 * creatinine 1.37,g/dl in October 2024 * creatinine 1.7mg/dl in April 2025 * suspect multifactorial etiology: * prerenal factors * ARB use prior to admission * infection (UTI) * contrast exposure (on 07/[address] scan) * other(?) * evaluation to date noted: * CT imaging with obstruction * renal u/s without obstruction (but evidence of medical renal disease) * urine electrolytes prerenal * urine eosinophils rare - possibly due to UTI * moderate proteinuria * CPK normal * serological testing ordered * continue trial of IVFs * follow trend of repeat labs and UOP (2) Acute hyperkalemia: Code(s): E87.5 - Hyperkalemia Status: Acute Assessment and Plan: * due to MILENA and continued losartan use * s/p medical management * follow trend of repeat K+ levels (3) Hyponatremia: Code(s): E87.1 - Hypo-osmolality and hyponatremia Status: Chronic Assessment and Plan: * somewhat of a chronic issue * baseline sodium runs ~ 126 - 136mmol/L in the last year * admission sodium 129mmol/L * suspect partly due to MILENA and associated volume depletion * follow trend with IVFs (4) Metabolic acidosis: Code(s): E87.20 - Acidosis, unspecified Status: Acute Assessment and Plan: * due to MILENA/ARF * attempting to compensate with oral sodium bicarbonate * should improve as renal function does * wean off as tolerated (5) Urinary tract infection: Code(s): N39.0 - Urinary tract infection, site not specified Status: Acute Assessment and Plan: * suggested by admission * some clinical symptoms noted as well * follow urine culture results * on antibiotics (6) Anemia: Code(s): D64.9 - Anemia, unspecified Status: Chronic Assessment and Plan: * chronic issues as well * drop in H/H noted due to hemodilution/IVFs * also likely exacerbated by MILENA/ARF * follow trend of H/H (7) Hypertension: Qualifiers: Hypertension type: primary hypertension Qualified Code(s): I10 - Essential (primary) hypertension Code(s): I10 - Essential (primary) hypertension Status: Chronic Assessment and Plan: * reasonable control at this time * off losartan due to #1 * follow trend of hemodynamics (8) Insulin dependent type 2 diabetes mellitus: Code(s): E11.9 - Type 2 diabetes mellitus without complications; Z79.4 - 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 Thank you for allowing me to participate in the care of this patient. L History of Present Illness Reason for Consult Consult date: 08/04/25 Reason for consult: acute renal failure Chief Complaint Chief complaint: Kidney failure History of Present Illness Narrative: The patient is a 70-year-old female with a past medical history as outlined below who presented to [facility] Emergency Room due to abnormal outpatient labs. The patient reports that she has been having decreased urine output through her ileostomy for the past few days in association with mild nausea. She reports that she has been urinating only small amounts in general which is somewhat unusual. Her nursing facility did outpatient labs given these symptoms which demonstrated a significant decline in her kidney function in association with hyperkalemia. Given this significant change, EMS was called and she was subsequently transported to the emergency room for further assessment. Workup and evaluation in the emergency room demonstrated the patient to be hemodynamically stable and afebrile. routine blood tests were done which demonstrated white blood cell count of 8.7, hemoglobin 9.8, platelet count 241, sodium 129, potassium 6.3, bicarb 13, BUN 89, creatinine 7.94, with a glucose of 78, normal LFTs, albumin 4.2, proBNP of 2210. Her urinalysis was significant for 1+ protein, 1+ blood, 3+ leukocyte esterase, greater than 100 white blood cells, 4+ bacteria, and a turbid appearance. a subsequent CT scan of the chest/abdomen / pelvis did not demonstrate any acute pathology other than cholelithiasis and pelvic relaxation given her history of abnormal labs in conjunction with the laboratory abnormalities noted in the ER as well as her urine testing, appropriate cultures were obtained and she was initiated on IV fluids as well as IV antibiotics. She received medical management for hyperkalemia and was subsequently admitted to the hospital for further evaluation and therapy. Since her admission, her renal function and potassium have slowly improved and she has noted an increase in her urine output as well. Furthermore, she symptomatically feels somewhat better as well. Renal consultation was requested due to her acute kidney injury/acute renal failure in association with hyperkalemia. Her care home records indicate that she has chronic kidney disease although the most recent labs I have from September of this year here at [facility] show her creatinine to be fairly normal at 0.96 mg/dL. From review of records from the [facility], her creatinine has fluctuated anywhere from 1.2 - 1.7 mg/dL following her discharge from [facility] after that September 2024 hospitalization... her last creatinine in April of 2025 was 1.7 mg/dL. Further complicating matters is the fact that she states she had a CT scan with IV contrast on 07/29 for further assessment of her known history of an ileostomy and colostomy at the behest of her general surgeon. As far as I am aware, there was no testing prior to her IV contrast exposure to assess her kidney function at that time. The patient herself does not mention that she has ever been told that she has renal insufficiency or chronic kidney disease. Currently, at the time my evaluation, she appears to be in no acute distress. Review of Systems 2 Review of Systems: As per HPI. 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 Hernadez History of partial colectomy History of four vessel coronary artery bypass graft (05/2024) [facility] History of coronary artery stent placement History of appendectomy Family History Family History (Updated 08/04/25 @ 00:40 by Helena Arndt APRN) Father CHF (congestive heart failure) Diabetes mellitus Mother Hypertension Sibling Heart disease Social History Social History (Updated 08/04/25 @ 00:42 by Helena Arndt APRN) Social History: She is retired from working in the [employer]ia. She is . She only has the 1 son who she now been 8 to be her durable power real estate associate attorney for healthcare. [facility] [place]. Surrogate medical decision maker: Babatunde Prakash, son ([phone]). Code status: Full code. Smoking status: Never smoker Second hand tobacco smoke exposure: No Alcohol intake: never Alcohol use details: rare alcohol use only in small amounts Substance use: never Substance use type: does not use Do You Feel Safe in your Home?: Yes Lack of Transportation: No Lack of Food: Never True Current Housing: I Have Housing Concerned About Future Housing: No Difficulty Paying Gas/Electric Bills: No Difficulty Paying for Meds: No Currently Unemployed: No Education: High School Diploma/GED Difficulty w/ Childcare or Family Care: No Living arrangements: with family Additional living arrangements comments: She lives with her brother and her beagle Vick. She has 1 son. 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 Spiritual care concerns: No Meds Home Medications and Allergies Home Medications ?Medication ?Instructions ?Recorded ?Confirmed ?Type metoprolol succinate 100 mg 50 mg PO BID 04/23/2202/20 History tablet,extended release 24 hr aspirin 81 mg capsule 81 mg PO DAILY 08/08/2202/20 History insulin human U-100 NPH-regulr 50 unit subcut BID 07/3008/03/25 History 70-30 mix 100 unit/mL subcutaneous susp (Humulin 70/30 U-100 Insulin) rosuvastatin 20 mg tablet 20 mg PO HS 04/06/24 5 History sucralfate 100 mg/mL oral 10 ml PO ACHS 04/06/2408/03 History suspension amiodarone 200 mg tablet 200 mg PO BID 07/09/2408/03 History clopidogrel 75 mg tablet 75 mg PO DAILY 07/09/2402/20 History pantoprazole 40 mg tablet,delayed 20 mg PO DAILY 07/0908/03/25 History release dicyclomine 10 mg capsule 10 mg PO QID #90 caps 08/03/25 Rx magnesium oxide 400 mg PO BID 10/22/2408/03 History sertraline 25 mg tablet 25 mg PO DAILY 10/22/2402/20 History acetaminophen 325 mg capsule 650 mg PO Q6H PRN pain 08/03/25 History calcium polycarbophil 625 mg 625 mg PO DAILY 08/03/25 08/03/25 History tablet (Fiber (calcium polycarbophil)) cetirizine 10 mg tablet (24Hour 10 mg PO DAILY 5 08/03/25 History Allergy) diphenoxylate-atropine 2.5 2 tablet PO BID PRN diarrhe a 08/03/25 08/03/25 History mg-0.025 mg tablet (Lomotil) insulin lispro 100 unit/mL 1 sliding scale dose subcut 08/03/25 08/03/25 History subcutaneous solution (Humalog USEASDIRECTD U-100 Insulin) losartan 100 mg tablet 25 mg PO DAILY 08/03/2502/20 History ondansetron HCl 4 mg tablet 4 mg PO Q8H PRN nausea and vomiting 08/03/25 08/03/25 History Allergies Allergy/AdvReac Type Severity Reaction Status Date / Time cephalexin (Keflex) Allergy Intermediate Hives Verified 08/03/25 23:45 Vital Signs Vital Signs Temp Pulse Resp BP Pulse Ox O2 Del Method 08/04/25 12:00 97.0 F L 67 17 115/39 L 100 08/04/25 12:00 61 08/04/25 08:39 68 08/04/25 08:38 68 08/04/25 08:00 68 08/04/25 08:00 100 Room Air 08/04/25 08:00 97.2 F L 66 18 139/44 L 100 08/04/25 04:00 97.4 F L 65 12 137/47 L 99 08/04/25 04:00 62 08/04/25 00:06 66 08/04/25 00:00 96.7 F L 69 16 153/55 H 99 08/03/25 23:22 97.6 F 67 20 116/50 L 100 08/03/25 22:46 97.7 F 67 14 153/56 H 100 08/03/25 20:43 98.0 F 62 17 140/94 H 100 Room Air Exam 2 Narrative: GENERAL APPEARANCE: elderly but well developed well nourished female in no acute distress HEENT: normocephalic, atraumatic, normal conjunctiva and sclera, nares patient NECK: no lymphadenopathy, thyromegaly, or JVD MOUTH: normal lips, teeth, and gums CARDIOVASCULAR: RRR, normal S1 and S2, no rub RESPIRATORY: clear anteriolry ABDOMEN: soft, nontender, nondistended, positive bowel sounds present: + ileostomy noted EXTREMITIES: no evidence of cyanosis, clubbing, or edema NEUROLOGICAL: alert and oriented x 3; CN II - XII intact bilaterally; no focal deficits noted Results Lab Results 08/05/25 05:31 08/05/25 11:49 Lab results: Most recent lab results Calcium 8.5 mg/dL (8.4-10.2) 08/04/25 05:07 Phosphorus 8.0 mg/dL (2.5-4.5) H 08/04/25 05:07 Urine Creatinine 69.7 mg/dL 08/04/25 04:26 Urine Creatinine Cancelled 08/04/25 04:26
--- NOTE | 2025-08-04 14:52 | PM.IMPN ---
Progress Note: A&P Assessment and Plan (1) Acute kidney injury: Code(s): N17.9 - Acute kidney failure, unspecified Status: Acute Assessment and Plan: Came in with significantly elevated BUN/creatinine of 87/6.87, creatinine now improving to 6.19. No prior history of CKD or ESRD. Patient was significantly dehydrated with significant UTI as well. These are likely contributing factors to MILENA. Nephrology has been consulted. Continue monitoring renal function Avoid nephrotoxic agents Renal dosing of drugs Await Nephrology recommendations Renal ultrasound ordered IV fluids running Extensive autoimmune workup included SPEP, urine immunofixation, cryoglobulins, P and C Anca, BODY MAKER MACHINE SETTER, double-stranded DNA antibody, glomerular basement antibody, complement, ASO, anti DNase B has all been ordered and is pending this time will follow-up (2) Acute hyperkalemia: Code(s): E87.5 - Hyperkalemia Status: Acute Assessment and Plan: Significantly elevated potassium 6.3 on admission with some peaked T-waves on telemetry/EKG, now improved to 5.3 after 2 doses of Lokelma, calcium gluconate, sodium bicarbonate, insulin/dextrose. Additional dose of Lokelma ordered to further reduce potassium. Monitor potassium levels Avoid agents that would increase potassium Likely to continue improving secondary to improvement of MILENA (3) Urinary tract infection: Code(s): N39.0 - Urinary tract infection, site not specified Status: Acute Assessment and Plan: UTI noted on urinalysis with patient having significant symptoms. UA has been collected and culture has been sent. Patient is started on ceftriaxone, no current risk factors to be concern for sepsis or need to escalate antibiotic at this time. Continue ceftriaxone Follow urine culture (4) Acute hyponatremia: Code(s): E87.1 - Hypo-osmolality and hyponatremia Status: Acute Assessment and Plan: Sodium 129 on admission, now improved to 130 Continue monitoring sodium (5) Insulin dependent type 2 diabetes mellitus: Code(s): E11.9 - Type 2 diabetes mellitus without complications; Z79.4 - senior care (current) use of insulin Status: Chronic Assessment and Plan: On insulin at home Continue insulin and sliding scale Diabetic diet (6) Atherosclerotic heart disease of [place] coronary artery without angina pectoris: Code(s): I25.10 - Atherosclerotic heart disease of [place] coronary artery without angina pectoris Status: Acute Assessment and Plan: On aspirin, clopidogrel, atorvastatin, metoprolol Continue above, with renal dosing if needed (7) Colostomy in place: Code(s): Z93.3 - Colostomy status Status: Acute (8) Ileostomy in place: Code(s): Z93.2 - Ileostomy status Status: Acute (9) Hyperlipidemia: Code(s): E78.5 - Hyperlipidemia, unspecified Status: Acute Plan DVT prophylaxis Renal diabetic diet GI prophylaxis Subjective Date/time seen: 08/04/25 14:52 Interval history: This is a 70-year-old female patient who had been complaining about abdominal pain a week ago and had a CT scan at [facility]. She is currently staying at [facility] in [place] which he developed urinary symptoms. She stated that she had been dribbling and urinating frequently been only in small amounts. She has had no prior history of any chronic kidney disease. She is currently complaining of lower back pain from lying in the bed. The patient was sent to the emergency room for elevated BUN and creatinine with a urinary tract infection. She stated when she had her CT scan her labs were normal. Her H&H is 9.8 and 29.8 which is improved from her previous labs. Her sodium is 129 which appears to be her baseline. Potassium is 5.7. BUN is 87 creatinine 6.87. Her GFR is low at 67 with a previous value of 57 on a 10/26/2024. Her urine is turbid was 1+ blood, 3+ leukocyte esterase, greater than 100 wbc's, and 4+ bacteria. Chest/abdomen/pelvis CT today impression cholelithiasis, pelvic relaxation, no acute abnormality the chest abdomen or pelvis. She has fatty infiltration of the liver. She does have an ileostomy and a colostomy. The patient was started on IV fluids and ceftriaxone. She was given D50, insulin, calcium gluconate, Lokelma, and bicarb. Nephrology has been consulted. The patient is being admitted to inpatient status on the date of service of 08/03/2025. Review of Systems Constitutional: Constitutional: Reports as per HPI and Reports no additional constitutional complaints Eyes: Eyes: Reports as per HPI and Reports no additional eye complaints ENT: Reports system reviewed and no additional complaints, except as documented and Reports Normal hearing present Cardiovascular: Cardiovascular: Reports no additional cardiovascular complaints Respiratory: Respiratory: Reports as per HPI and Reports no additional respiratory complaints Gastrointestinal: Gastrointestinal: Reports as per HPI and Reports no additional gastrointestinal complaints Genitourinary: Genitourinary: Reports no additional female genitourinary complaints Musculoskeletal: Musculoskeletal: Reports no additional musculoskeletal complaints Integumentary/Breasts: Skin/Breast: Reports system reviewed and no additional complaints, except as docu Neurologic: Reports system reviewed and no additional complaints, except as documented and Reports Normal hearing present Psychiatric: Psychiatric: Reports no additional psychiatric complaints and Reports as per HPI Hematologic/Lymphatic: Hematologic/Lymphatic: Reports no additional hematologic/lymphatic complaints Allergic/Immunologic: Allergic/Immunologic: Reports no additional allergic/immunologic complaints Exam Const: General: cooperative, healthy appearing, comfortable, no acute distress, well developed, awake, Physically active, average body habitus and well nourished Nutritional Appearance: average body habitus and well nourished Orientation/consciousness: oriented to person, oriented to place, oriented to time and patient oriented x3 Limitations: no limitations HENMT: Head: normal to inspection, No palpable skull fracture present and normocephalic Eyes: General: appearance normal, both eyes and all related structures Alignment and Position: alignment normal Periorbital: periorbital findings normal Eyelids: eyelids normal EOM: EOMs intact bilaterally Neck: Neck: normal visual inspection, full ROM and no lymphadenopathy Chest: Chest palpation & inspection: normal inspection of the chest Resp: Effort & Inspection: normal respiratory effort Auscultation: clear to auscultation bilaterally Percussion: percussion normal Cardio: Palpation: normal PMI Rate: regular rate Rhythm: regular rhythm Heart sounds: S1 normal heart sound present and S2 normal heart sound present Peripheral pulses: Peripheral pulses 2+ throughout GI: Inspection: normal to inspection Auscultation: normal bowel sounds Other: Ileostomy and colostomy bag intact. 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 Neuro: General: oriented to person, oriented to place, oriented to time and patient oriented x3 Cranial nerves: Yes Normal hearing present Cognition (Neuro): normal cognition Speech: normal speech Motor exam (neuro): 5/5 motor strength present throughout Sensory Exam: normal sensation Extrem: General: normal to inspection Right upper extremity: normal to inspection and shoulder/upper arm Left upper extremity: normal to inspection and shoulder/upper arm Right lower extremity: foot Left lower extremity: normal to inspection Other: Previous history of 2nd right toe amputated Psych: Appearance: grossly normal Mental Status: mental status grossly normal Speech and movement: Normal speech and movement present Affect: normal affect Attitude: cooperative Objective Data Vital Signs Vital Signs: Vital Signs - 24 hr 08/03/25 20:43 08/03/25 22:46 08/03/25 23:22 Temperature 98.0 F 97.7 F 97.6 F Pulse Rate 62 67 67 Respiratory Rate 17 14 20 Blood Pressure 140/94 H 153/56 H 116/50 L Pulse Oximetry 100 100 100 Oxygen Delivery Room Air 08/04/25 00:00 08/04/25 00:06 08/04/25 04:00 Temperature 96.7 F L Pulse Rate 69 66 62 Respiratory Rate 16 Blood Pressure 153/55 H Pulse Oximetry 99 Oxygen Delivery 08/04/25 04:00 08/04/25 08:00 08/04/25 08:00 Temperature 97.4 F L 97.2 F L Pulse Rate 65 66 Respiratory Rate 12 18 Blood Pressure 137/47 L 139/44 L Pulse Oximetry 99 100 100 Oxygen Delivery Room Air 08/04/25 08:00 08/04/25 08:38 08/04/25 08:39 Temperature Pulse Rate 68 68 68 Respiratory Rate Blood Pressure Pulse Oximetry Oxygen Delivery 08/04/25 12:00 08/04/25 12:00 Temperature 97.0 F L Pulse Rate 61 67 Respiratory Rate 17 Blood Pressure 115/39 L Pulse Oximetry 100 Oxygen Delivery Intake/Output Intake/Output: Intake & Output 08/01/25 08/02/25 08/03/25 08/04/25 23:59 23:59 23:59 23:59 Intake Total 1050 840 Output Total 1800 Balance 1050 -960 Meds/Results Medications: Active Medications Generic Name Dose Route Start Last Admin Trade Name Freq PRN Reason Stop Dose Admin Acetaminophen 650 mg 08/04/25 00:46 08/04/25 01:25 Acetaminophen 325 Mg Tablet PO 650 mg Q6H PRN Administration Pain Amiodarone HCl 200 mg 08/04/25 09:00 08/04/25 08:38 Amiodarone Hcl 200 Mg Tablet PO 200 mg Q12HR [place] Administration Aspirin 81 mg 08/04/25 09:00 08/04/25 08:39 Aspirin 81 Mg Enteric Tablet PO 09/03/25 08:59 81 mg DAILY [place]ENIX Administration Calcium Polycarbophil 625 mg 08/04/25 09:00 08/04/25 08:39 Calcium Polycarbophil 625 Mg Tablet PO 625 mg DAILY [place] Administration Clopidogrel Bisulfate 75 mg 08/04/25 09:00 08/04/25 08:39 Clopidogrel Bisulfate 75 Mg Tablet PO 75 mg DAILY [place] Administration Dicyclomine HCl 10 mg 08/04/25 09:00 08/04/25 12:46 Dicyclomine Hcl 10 Mg Capsule PO 10 mg QID [place] Administration Diphenoxylate HCl/Atropine 2 tablet 08/04/25 00:46 Diphenoxylate/Atropine (*Crx) 2.5 Mg Tablet PO BID PRN Diarrhea Glucagon 1 mg 08/04/25 00:48 Glucagon For Inj 1 Mg Vial IM PRN PRN Hypoglycemia Protocol Glucose 15 gm 08/04/25 00:48 Glucose Oral Gel 15 Gm Of Glucse In 37.5 Gm Tube PO PRN PRN Hypoglycemia Protocol Ceftriaxone Sodium 1 gm/ 50 mls @ 100 mls/hr 08/04/25 22:00 Sodium Chloride IVPB Q24H [place] Dextrose 1,000 mls @ 100 mls/hr 08/04/25 00:48 Dextrose 5% 1,000 Ml IVPB PRN PRN Hypoglycemia Protocol Insulin Aspart 3 - 6 units 08/04/25 08:00 08/04/25 12:11 Insulin Aspart (*Bkc) 100 Units/Ml SUB-Q 3 units TIDWM [place] Administration Protocol Loratadine 10 mg 08/04/25 09:00 08/04/25 08:39 Loratadine 10 Mg Tablet PO 09/03/25 08:59 10 mg DAILY [place] Administration Metoprolol Succinate 50 mg 08/04/25 09:00 08/04/25 08:39 Metoprolol Succinate Ext Rel 50 Mg Tabcr PO 50 mg Q12HR [place] Administration Pantoprazole Sodium 20 mg 08/04/25 09:00 08/04/25 08:45 Pantoprazole Sod Sesquihydrate 20 Mg Tab PO 20 mg DAILY [place] Administration Rosuvastatin Calcium 10 mg 08/04/25 21:00 Rosuvastatin 10 Mg Tablet PO HS PHOENIX Sertraline HCl 25 mg 08/04/25 09:00 08/04/25 08:39 Sertraline Hcl 25 Mg Tablet PO 25 mg DAILY [place] Administration Sucralfate 1,000 mg 08/04/25 06:30 08/04/25 12:09 Sucralfate Susp 100 Mg/Ml 10 Ml Udc PO 1,000 mg ACHS [place] Administration Radiology Results: ITS Impressions Chest/Abdomen/Pelvis CT 08/03/25 21:34 IMPRESSION: 1. Cholelithiasis. 2: Pelvic relaxation. 3: No acute abnormality of the chest, abdomen or pelvis. Renal Ultrasound 08/04/25 11:51 IMPRESSION: 1. Mildly increased echotexture of the kidneys may represent underlying medical renal disease. 2. Limited evaluation of the urinary bladder. Labs Labs: Laboratory Results - last 24 hr 08/03/25 08/03/25 08/03/25 20:40 20:41 20:58 WBC 8.7 RBC 3.21 L Hgb 9.8 L Hct 29.8 L MCV 92.8 MCH 30.5 MCHC 32.9 RDW 13.3 Plt Count 241 MPV 9.6 Immature Gran % (Auto) 0.6 H Neut % (Auto) 65.7 Lymph % (Auto) 23.8 [place] % (Auto) 6.9 Eos % (Auto) 2.3 Baso % (Auto) 0.7 Lymph # (Auto) 2.08 [place] # (Auto) 0.6 Eos # (Auto) 0.2 Baso # (Auto) 0.1 Abs Immat Gran (auto) 0.05 H Absolute Neuts (auto) 5.8 Absolute Nucleated RBC 0.000 Nucleated RBC % 0.0 ESR Sodium 129 L Potassium 6.3 H* Chloride 102 Carbon Dioxide 13 L Anion Gap 14 H BUN 89 H D Creatinine 7.94 H Estim Creat Clear Calc 5 Estimated GFR 5 L Glucose 78 POC Capillary Glucose Hemoglobin A1c 6.7 H Calcium 8.9 Phosphorus Total Bilirubin 0.6 Direct Bilirubin AST 19 ALT 13 Alkaline Phosphatase 90 Total Creatine Kinase C-Reactive Protein NT-Pro-B Natriuret Pep 2210 H Total Protein 8.0 Albumin 4.2 Urine Color Yellow Urine Appearance Turbid H Urine pH 5.0 Ur Specific [place] 1.012 Urine Protein 1+ H Urine Glucose (UA) Negative Urine Ketones Negative Ur Blood (Man) 1+ H Urine Nitrate Negative Urine Bilirubin Negative Urine Urobilinogen 0.2 Add Ur Microanalysis Reviewed Leukocyte Esterase Rfl 3+ H Urine RBC 0-2 Urine WBC >100 H Ur Squamous Epith Cells Occasional Urine Bacteria 4+ H Urine Casts 3-5 Urine Eosinophils U Random Total Protein Ur Random Sodium Ur Random Potassium Urine Creatinine Protein/Creat Ratio 2 Cryoglobulin % Cryoglobulin Qualit MARLON Screen MARLON Titer MAR[place]ON Titer 2 MAR[place]ON Titer 3 MAR[place]ON Pattern MAR[place]ON Pattern 2 [place] Pattern 3 [place] Comment Sm (Pereyra) Antibody SM/BODY MAKER MACHINE SETTER IgG Antibody Glomerular Base Memb Ab Complement C3 Complement C4 Hep Bs Antigen Hep Bs Antibody Hep B Core IgM Ab Hepatitis C Ab Screen HIV 1&2 Ab/P24 Ag 4thGn 08/03/25 08/04/25 08/04/25 23:59 04:26 04:26 WBC RBC Hgb Hct MCV MCH MCHC RDW Plt Count MPV Immature Gran % (Auto) Neut % (Auto) Lymph % (Auto) [place] % (Auto) Eos % (Auto) Baso % (Auto) Lymph # (Auto) [place] # (Auto) Eos # (Auto) Baso # (Auto) Abs Immat Gran (auto) Absolute Neuts (auto) Absolute Nucleated RBC Nucleated RBC % ESR Sodium 129 L Potassium 5.7 H Chloride 101 Carbon Dioxide 16 L Anion Gap 12 BUN 87 H Creatinine 6.87 H Estim Creat Clear Calc 6 Estimated GFR 6 L Glucose 69 POC Capillary Glucose Hemoglobin A1c Calcium 8.8 Phosphorus Total Bilirubin Direct Bilirubin AST ALT Alkaline Phosphatase Total Creatine Kinase C-Reactive Protein NT-Pro-B Natriuret Pep Total Protein Albumin Urine Color Urine Appearance Urine pH Ur Specific [place] Urine Protein Urine Glucose (UA) Urine Ketones Ur Blood (Man) Urine Nitrate Urine Bilirubin Urine Urobilinogen Add Ur Microanalysis Leukocyte Esterase Rfl Urine RBC Urine WBC Ur Squamous Epith Cells Urine Bacteria Urine Casts Urine Eosinophils Rare U Random Total Protein 20 Ur Random Sodium 9 Ur Random Potassium 32.9 Urine Creatinine 69.7 Cancelled Protein/Creat Ratio 2 0.29 H Cryoglobulin % Cryoglobulin Qualit MARLON Screen MAR[place]ON Titer MAR[place]ON Titer 2 MAR[place] Titer 3 [place] Pattern MAR[place] Pattern 2 [place] Pattern 3 [place] Comment Sm (Pereyra) Antibody SM/BODY MAKER MACHINE SETTER IgG Antibody Glomerular Base Memb Ab Complement C3 Complement C4 Hep Bs Antigen Hep Bs Antibody Hep B Core IgM Ab Hepatitis C Ab Screen HIV 1&2 Ab/P24 Ag 4thGn 08/04/25 08/04/25 05:07 11:42 WBC 7.2 RBC 2.62 L Hgb 8.1 L Hct 24.1 L MCV 92.0 MCH 30.9 MCHC 33.6 RDW 13.4 Plt Count 183 MPV 9.6 Immature Gran % (Auto) Neut % (Auto) Lymph % (Auto) [place] % (Auto) Eos % (Auto) Baso % (Auto) Lymph # (Auto) [place] # (Auto) Eos # (Auto) Baso # (Auto) Abs Immat Gran (auto) Absolute Neuts (auto) Absolute Nucleated RBC Nucleated RBC % ESR > 140 H Sodium 130 L Potassium 5.3 H Chloride 103 Carbon Dioxide 17 L Anion Gap 10 BUN 84 H Creatinine 6.19 H Estim Creat Clear Calc 7 Estimated GFR 7 L Glucose 127 H POC Capillary Glucose 243 H Hemoglobin A1c Calcium 8.5 Phosphorus 8.0 H Total Bilirubin 0.4 Direct Bilirubin 0.0 AST 17 ALT 12 Alkaline Phosphatase 79 Total Creatine Kinase 95 C-Reactive Protein 0.5 NT-Pro-B Natriuret Pep Total Protein 6.4 Albumin 3.3 L Urine Color Urine Appearance Urine pH Ur Specific [place] Urine Protein Urine Glucose (UA) Urine Ketones Ur Blood (Man) Urine Nitrate Urine Bilirubin Urine Urobilinogen Add Ur Microanalysis Leukocyte Esterase Rfl Urine RBC Urine WBC Ur Squamous Epith Cells Urine Bacteria Urine Casts Urine Eosinophils U Random Total Protein Ur Random Sodium Ur Random Potassium Urine Creatinine Protein/Creat Ratio 2 Cryoglobulin % Cancelled Cryoglobulin Qualit Cancelled MAR[place]ON Screen Cancelled [place]ON Titer Cancelled MAR[place] Titer 2 Cancelled [place] Titer 3 Cancelled [place] Pattern Cancelled [place] Pattern 2 Cancelled [place] Pattern 3 Cancelled [place] Comment Cancelled Sm (Pereyra) Antibody Cancelled SM/BODY MAKER MACHINE SETTER IgG Antibody Cancelled Glomerular Base Memb Ab Cancelled Complement C3 125 Complement C4 24.6 Hep Bs Antigen Negative Hep Bs Antibody Negative Hep B Core IgM Ab Negative Hepatitis C Ab Screen Negative HIV 1&2 Ab/P24 Ag 4thGn Negative Hospitalist MIPS Advance Care Plan I have confirmed that the patient's Advanced Care Plan is present, code status is documented, or surrogate decision maker is listed in patient medical record.: Yes Medication Reconciliation I have utilized all available resources to obtain, update and review the patients current medications (includes all prescriptions, OTC, herbals, cannabis, and nutritional supplements).: Yes
--- OUTSIDE RECORDS SUMMARY | 2025-08-04 15:48 | XMS_ITS | Encounter Summary ---
Author Organization [facility] Address [address] [place] [address] Care Team Providers Care Dietetic Assistant Name Role Phone José Emmanuel MD Primary Care Provider Kai Bryson MD Unavailable Unavailable Torres Pedroza MD Primary Care Provider [phone] Akiko Hastings MD Unavailable [phone] Buck Tran MD Unavailable [phone] Encounter Details Date Type Department Care Team (Late st Contact Info) Description 03/18/2016 Abstract [facility] [address] [place] [address] Case Lawson MD Social History Tobacco Use Types Packs/Day Years Used Date Smoking Tobacco: Never Comments Unknown Sex and Gender Information Value Date Recorded Sex Assigned at Not on file Legal Sex Female 1:34 AM CDT Gender Identity Not on file Sexual Orientation Not on file documented as of this encounter Plan of Treatment Not on file documented as of this encounter Visit Diagnoses Not on filedocumented in this encounter Additional Health Concerns Infection Onset Date Last Indicated Resolved Time COVID-19 Rule Out 04/06/2022 04/06/2022 04/06/2022 7:09 AM CDT COVID-19 Confirmed Comment:04/04/22 per H&P (SB) 04/06/2022 04/06/2022 05/01/2022 1 2:32 AM CDT documented as of this encounter Care Teams Dietetic Assistant Relationship Specialty Start Date End Date José Emmanuel MD PCP - General SURGERY 09/05/16 12/13/18 Torres Pedroza MD [address] [place] [phone] PCP - General INTERNAL MEDICINE 12/14/18 Kai Herndon MD CARDIOVASCULAR DISEASE 09/05/16 10/07/19 Akiko Hastings MD [address] [place] [phone] CARDIOVASCULAR DISEASE 10/08/19 12/03/24 Buck Tran MD [address] [facility] [address] [place] [address] Physician INTERVENTIONAL CARDIOLOGY 12/03/24 documented as of this encounter
--- OUTSIDE RECORDS SUMMARY | 2025-08-04 15:48 | XMS_ITS | Encounter Summary ---
Author Organization [facility] Address [facility] [place] [address] Care Team Providers Care White Sourer Name Role Phone José Emmanuel MD Primary Care Provider Kai Bryson MD Unavailable Unavailable Torres Pedroza MD Primary Care Provider [phone] Akiko Hastings MD Unavailable [phone] Buck Tran MD Unavailable [phone] Encounter Details Date Type Department Care Team (Late st Contact Info) Description 03/06/2016 [facility] [address] [address] Case Lawson MD Social History [...] Industry 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 Not on f ile Not on [...] documented as of this encounter Care Teams White Sourer Relationship Specialty Start Date End Date José Emmanuel MD PCP - General SURGERY 09/05/16 12/13/18 Torres Pedroza MD [address] [place] [phone] PCP - General INTERNAL MEDICINE 12/14/18 Kai Herndon MD CARDIOVASCULAR DISEASE 09/05/16 10/07/19 Akiko Hastings MD [address] [place] [phone] CARDIOVASCULAR DISEASE 10/08/19 12/03/24 Buck Tran MD [address] [facility] [address] [place] [address] Physician INTERVENTIONAL CARDIOLOGY 12/03/24 documented as of this encounter
--- OUTSIDE RECORDS SUMMARY | 2025-08-04 15:48 | XMS_ITS | Clinical Summary ---
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 Ultrasonic Name Role Phone Torres Pedroza MD Primary Care Provider [phone] Akiko Hastings MD Unavailable [phone] Kevin Hancock MD Unavailable [phone] Babatunde Baron MD Unavailable [phone] Carlos Harding MD Unavailable Allergies Active Allergy [...] by mouth daily 30 tablet 11 4 Active Additional Information Patient not taking.Reported on 12/09/2024 dicyclomine (BENTYL) 10 mg capsule Take 1 [...] by mouth daily 30 tablet 2 4 Active ondansetron (ZOFRAN) 4 mg tablet Take 1 tablet (4 mg total) by mouth every 6 (six) hours as needed for nausea or vomiting Active sertraline (ZOLOFT) 25 mg tablet Take 1 tablet (25 mg total) by mouth daily Active collagenase (SANTYL) ointment Apply topically daily Active diphenoxylate-a tropine (LOMOTIL) 2.5-0.025 mg per tabletIndicatio ns:diarrhea Take 2 tablets by mouth 4 (four) times a day as needed for diarrhea Active Active Problems Problem Noted Date Diagnosed Date Acute ischemic enteritis 08/10/2024 MILENA (acute kidney injury) 06/28/2024 Superior mesenteric artery stenosis 06/28/2024 Ischemic colitis 06/23/2024 Atrial fibrillation with RVR 06/19/2024 S/P CABG (coronary artery bypass graft) 06/15/20 Coronary artery disease involving rappahannock heart 0 06/04/2024 Hypertension 05/20/2024 Overview (05/20/2024): History of hypertension treated with medication Hyperlipidemia 05/20/2024 Overview (05/20/2024): History of hyperlipidemia - treated. Diabetes 05/20/2024 CAD, multiple vessel 05/20/2024 Encounters Date Type Department Care Team Description 07/29/2025 11:30 AM CDT - 07/29/2025 11:59 PM CDT [facility] [address] [place] [address] Attention to ileostomy (HCC) Discharge Disposition: Discharge to home or self care from Last 3 Months Surgical History Surgery Date Site/Laterality Comments CORONARY ANGIOPLASTY 04/26/2011 N/A MANJULA to Circ APPENDECTOMY CARDIAC CATHETERIZATION 03/29/2024 - 04/28/2024 CORONARY ARTERY BYPASS GRAFT TOE AMPUTATION right 2nd toe on right foot Medical History Medical History Date Comments Hypertension Hyperlipidemia Diabetes mellitus CAD (coronary artery disease) Cardiomyopathy Acute respiratory distress s yndrome (ARDS) due to COVID-19 virus (HCC) 04/06/2022 Type 2 diabetes mellitus Gastric ulcer GERD (gastroesophageal reflux disease) Wears glasses Wears dentures upper Family History Medical History Relation Name Comments CABG Father 5 vessel CABG i n his 70's Coronary artery disease Other Fami ly history of premature CAD Relation Name Status Comments Father Other Social History Tobacco Use Types Packs/Day Years Used Date Smoking Tobacco: Never Smokeless Tobacco: Never Tobacco Cessation:Counseling Given: Not Answered [facility] Utilities Answer Date Recorded In the past 12 months has [employer], [employer], oil, or water [employer] threatened to shut off services in your home? No 06/16/2024 Social Connection and Isolation Panel Answer Date Recorded In a typical week, how many times do you talk on the phone with family, friends, or neighbors? Three times a week 06/16/2024 How often do you get togethe r with friends or relatives? More than three times a week 06/16/2024 How often do you attend chur ch or nondenominational services? Never 06/16/2024 Do you belong to any clubs o r organizations such as hindu groups, unions, fraternal or athletic groups, or [...] any time in the past 12 m [facility], were you homeless or living in a snf (including now)? No 06/16/2024 Personal Safety Answer [...] Sign Reading Time Taken Comments Blood Pressure 127/52 12/09/2024 9:39 AM CDT Pulse 81 12/09/2024 9:39 AM CDT Temperature 36.4 C (97.5 F) 12/09/2024 9:39 AM CDT Respiratory Rate 20 07/01/2024 11:0 0 AM CDT Oxygen Saturation 99% 12/09/2024 9:39 AM CDT Inhaled Oxygen Concentration - - Weight 70.7 kg (155 lb 12.8 oz) 12/09/2024 9:39 AM CDT Height 165.1 cm (5' 5) 12/09/2024 9:39 AM CDT Body Mass Index 25.93 12/09/2024 9:39 AM CDT Plan of Treatment Upcoming Encounters Date Type Department Care Team (Late st Contact Info) Description 08/30/2025 10:00 AM [employer]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 Hospital Encounter [facility] [address] [place] [address] Negin Ruiz MD [address] [place] [id number] 08/30/2025 10:00 AM 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 - 08/30/2025 10:30 AM 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 Surgery [facility] [address] [place] [address] Negin Ruiz MD [address] [place] [address] COLONOSCOPY Scheduled Procedures Name Priority Associated Diagnoses Date/Ti me COLONOSCOPY Ilesistomy 08/30/2025 10:00 AM 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 Health Maintenance Due Date Last Done Comments Albumin Creatinine Ratio, Urine 1953 Breast Cancer Screening-Mammogram 1953 Colon Cancer Screening-Colonoscopy 1955 Depression Screening 1953 Hepatitis C Screening 1953 Osteoporosis Screening-Bone Density Scan 1953 Dilated Eye Exam 1953 Foot Exam 1953 DTaP/Tdap/Td Vaccine (1 - Tdap) 1964 Hepatitis B Screening 1971 Well Visit 65+ 2018 Pneumococcal vaccine 65+ (2 of 2 - PPSV23, PCV20, or PCV21) 09/30/2018 08/05/2018 Hemoglobin A1C 12/08/2024 06/10/2024 Influenza Vaccine (#1) 2025 , 07/02/2022, 05/30/2021, Additional history exists eGFR 06/30/2025 06/30/2024, 09/2023, 06/28/2024, Additional history exists Fall Risk Assessment 07/01/2025 07/01/2024 Lipid Panel 05/03/2026 05/03/2025, 12/2024, 06/10/2024, Additional history exists Zoster Vaccine Completed 07/19/2022, 10/04/2019 Medical Devices Implanted Type Area Residential Plumber Device Identifier Shelf Expiration Date Model / Serial / Lot Dialogfeed Vasquez Distal Marker Radiology Stainless Steel Sterile Am-D - [id number] Implanted:Qty : 1 on 06/15/2024 by Kevin Hancock MD at [facility] Graft N/A: Heart Dialogfeed 05/29/2026 AMGM-D / / [id number] Medtronic Inc Visi-Pro Od6 Mm L37 Mm L80 Cm Balloon Expandable; Solid Radial St [id number] - [id number] Implanted:Qty : 1 on 06/22/2024 by Babatunde Baron MD at [facility] Stent N/A: Superior Mesenteric Artery Med[employer] Inc [id number] 10/10/2025 [id number] / / [id number] Stent Heart Montagect Implanted:Qty : 1 on 06/15/2024 by Kevin Hancock MD at [facility] N/A: Sternum [employer] 04/28/2027 OS-MON-1 [id number] / [id number] / Description:NOT APPROVED BY [facility] DO NOT CHARGE [employer] Device Closure Fibertape Sternal Cerclage Cutting Needle [id number] - [id number] Implanted:Qty : 3 on 06/15/2024 by Kevin Hancock MD at [facility] [employer] [id number] 03/28/2029 [id number]-[id number] / / [id number] Procedures Procedure Name Priority Date/Time Associated Diagnosis Comments CT ABDOMEN PELVIS W CONTRAST Schedule Routine, Read Routine (OP Routine) 07/29/2025 11:58 AM CDT Attention to ileostomy (HCC) EGFR Routine 06/30/2024 5:18 AM CDT HEMOGLOBIN A1C Routine 06/10/2024 11:51 AM CDT Coronary artery disease involving rappahannock heart with other form of angina pectoris, unspecified vessel or lesion type Type 2 diabetes mellitus without complication, unspecified whether long chain beamer insulin use (HCC) Pre-op exam LIPID PANEL Routine 06/10/2024 11:51 AM CDT Coronary artery disease involving rappahannock heart with other form of angina pectoris, unspecified vessel or lesion type Pre-op exam from Last 3 Months or Most Recently Relevant to Health Maintenance Results * CT Abdomen Pelvis W Contrast (07/29/2025 11:58 AM CDT) Anatomical Region Laterality Modality Body N/A Computed Tomogra phy 07/29/2025 3:10 PM CDT Impressions 07/29/2025 3:10 PM CDT 1. Interval postsurgical changes of right hemicolectomy with right lower quadrant ileostomy and left lower quadrant colostomy. No definite evidence of a bowel obstruction. No definite evidence of significant small bowel wall thickening, small bowel pneumatosis, or portal venous gas to suggest bowel compromise. 2. Mild mucosal thickening of the colon, which is likely related to underdistention and much less likely mild colitis of infectious or inflammatory etiology. 3. Scattered colonic diverticula without definite evidence of diverticulitis. 4. Mild mucosal thickening of the urinary bladder, which may related to underdistention versus mild colitis of infectious or inflammatory etiology. 5. Interval development of a couple of foci of fat necrosis in the right lower quadrant of the abdomen measuring up to 1.9 cm. 6. Cholelithiasis. 7. Mild diffuse hepatic steatosis. Electronically signed by: Mamadou Cabrera 07/29/2025 3:10 PM CDT EXAMINATION: CT ABDOMEN PELVIS W CONTRAST ORDERING HEALTHCARE PROVIDER: NEGIN RUIZ HISTORY: attention to ileostomy. TECHNIQUE: CT abdomen and pelvis with IV contrast and without oral contrast. Reconstructed coronal and sagittal MPR images reviewed. All images stored on PACS. Automated exposure control was used as a dose optimization technique for this examination. COMPARISON: 06/22/2024 FINDINGS: LOWER CHEST: There is cardiomegaly. There is no definite evidence of a pericardial effusion. There are atherosclerotic changes of the aorta and vasculature. There is interval placement of a superior mesenteric artery stent. There is minimal to mild bibasilar subsegmental atelectasis and scarring. There is a small hiatal hernia. LIVER: There is mild diffuse hepatic steatosis with focal fatty sparing along the gallbladder fossa. There is no definite evidence of focal hepatic lesion. The hepatic and portal veins are grossly patent. GALLBLADDER: The gallbladder is filled with cholelithiasis. BILIARY:There is no definite evidence of intrahepatic or extra hepatic biliary ductal dilatation. SPLEEN: The spleen is grossly normal in size and unremarkable. PANCREAS: The pancreas appears grossly unremarkable without definite evidence of pancreatic ductal dilatation, peripancreatic inflammatory changes, or peripancreatic fluid collection. ADRENALS: The bilateral adrenal glands are grossly stable and unremarkable. KIDNEYS/URINARY TRACT: The bilateral kidneys enhance symmetrically. There is no definite evidence of a focal renal lesion. There is no definite evidence of hydronephrosis or hydroureter.. There is mild circumferential mucosal thickening of the urinary bladder. GI: There are interval postsurgical changes of right hemicolectomy noted with the right lower quadrant ileostomy and left lower quadrant colostomy. There is no definite evidence of a bowel obstruction. There is mild mucosal thickening of the transverse colon, descending colon, and sigmoid colon, which is likely related to underdistention and much less likely mild colitis of infectious or inflammatory etiology. There are scattered fibrotic diverticula without definite evidence of diverticulitis. There is diastases recti. There is no definite evidence of free air or fluid in the abdomen and pelvis. There is no definite evidence of lymphadenopathy in the abdomen and pelvis. There are a couple of foci of fat necrosis noted in the lateral right lower quadrant the abdomen with the largest measuring 1.9 cm (axial image 79). REPRODUCTIVE: There is no definite CT evidence of a large ovarian or uterine mass. MUSCULOSKELETAL: There is mild osteopenia. There is a mild dextroscoliotic curvature the spine with degenerative changes. OTHER: No other acute findings. Procedure Note Oneal Fuller, DO - 07/29/2025 EXAMINATION: CT ABDOMEN PELVIS W CONTRAST ORDERING HEALTHCARE PROVIDER: NEGIN RUIZ HISTORY: attention to ileostomy. TECHNIQUE: CT abdomen and pelvis with IV contrast and without oral contrast. Reconstructed coronal and sagittal MPR images reviewed. All images stored on PACS. Automated exposure control was used as a dose optimization technique for this examination. COMPARISON: 06/22/2024 FINDINGS: LOWER CHEST: There is cardiomegaly. There is no definite evidence of a pericardial effusion. There are atherosclerotic changes of the aorta and vasculature. There is interval placement of a superior mesenteric artery stent. There is minimal to mild bibasilar subsegmental atelectasis and scarring. There is a small hiatal hernia. LIVER: There is mild diffuse hepatic steatosis with focal fatty sparing along the gallbladder fossa. There is no definite evidence of focal hepatic lesion. The hepatic and portal veins are grossly patent. GALLBLADDER: The gallbladder is filled with cholelithiasis. BILIARY:There is no definite evidence of intrahepatic or extra hepatic biliary ductal dilatation. SPLEEN: The spleen is grossly normal in size and unremarkable. PANCREAS: The pancreas appears grossly unremarkable without definite evidence of pancreatic ductal dilatation, peripancreatic inflammatory changes, or peripancreatic fluid collection. ADRENALS: The bilateral adrenal glands are grossly stable and unremarkable. KIDNEYS/URINARY TRACT: The bilateral kidneys enhance symmetrically. There is no definite evidence of a focal renal lesion. There is no definite evidence of hydronephrosis or hydroureter.. There is mild circumferential mucosal thickening of the urinary bladder. GI: There are interval postsurgical changes of right hemicolectomy noted with the right lower quadrant ileostomy and left lower quadrant colostomy. There is no definite evidence of a bowel obstruction. There is mild mucosal thickening of the transverse colon, descending colon, and sigmoid colon, which is likely related to underdistention and much less likely mild colitis of infectious or inflammatory etiology. There are scattered fibrotic diverticula without definite evidence of diverticulitis. There is diastases recti. There is no definite evidence of free air or fluid in the abdomen and pelvis. There is no definite evidence of lymphadenopathy in the abdomen and pelvis. There are a couple of foci of fat necrosis noted in the lateral right lower quadrant the abdomen with the largest measuring 1.9 cm (axial image 79). REPRODUCTIVE: There is no definite CT evidence of a large ovarian or uterine mass. MUSCULOSKELETAL: There is mild osteopenia. There is a mild dextroscoliotic curvature the spine with degenerative changes. OTHER: No other acute findings. IMPRESSION: 1. Interval postsurgical changes of right hemicolectomy with right lower quadrant ileostomy and left lower quadrant colostomy. No definite evidence of a bowel obstruction. No definite evidence of significant small bowel wall thickening, small bowel pneumatosis, or portal venous gas to suggest bowel compromise. 2. Mild mucosal thickening of the colon, which is likely related to underdistention and much less likely mild colitis of infectious or inflammatory etiology. 3. Scattered colonic diverticula without definite evidence of diverticulitis. 4. Mild mucosal thickening of the urinary bladder, which may related to underdistention versus mild colitis of infectious or inflammatory etiology. 5. Interval development of a couple of foci of fat necrosis in the right lower quadrant of the abdomen measuring up to 1.9 cm. 6. Cholelithiasis. 7. Mild diffuse hepatic steatosis. Electronically signed by: Oneal Fuller D.O. Negin Ruiz MD [facility] CT PROCEDURES Final Result * eGFR (06/30/2024 5:18 AM CDT) eGFR 70 >=60 mL/min/1. 73 m2 Comment: Interpretive Data Reference Interval Normal >/= 90 mL/min/1.73m2 Mildly decreased* 60 - 89 mL/min/1.73m2 Mildly to moderately decreased 45 - 59 mL/min/1.73m2 Moderately to severely decreased 30 - 44 mL/min/1.73m2 Severely decreased 15 - 29 mL/min/1.73m2 Kidney Failure < 15 mL/min/1.73m2 *Relative to young adult level Estimated glomerular [...] 5:18 AM CDT 06/30/2024 6:10 AM CDT Joleen Brewer MD LAB BLOOD ORDERABLES Final Resu lt Performing Organization Address City/[facility] Co de Phone Number [address] [address] * (ABNORMAL) Hemoglobin A1c (06/10/2024 11:51 AM CDT) Hgb A1C 6.7(H) 4.0 - 5.6 % Estimated Average Glucose 146 mg/dL [facility] Comment: The ADA recommends reporting an estimated Average Glucose (eAG) with all Hemoglobin A1c results using the equation derived from a study of 507 normal and diabetic adults. Minority populations were underrepresented and children were not included. (Diabetes Care 31:6722-1864, 2008). The eAG is not equivalent to a fasting glucose. Blood 06/10/2024 11:5 1 AM CDT 06/10/2024 11:57 AM CDT Sol Flores NP LAB BLOOD ORDERABLES Final Result Performing Organization Address City/[facility] Co de Phone Number [address] [place] [address] * (ABNORMAL) Lipid panel (06/10/2024 11:51 AM CDT) Cholesterol 161 30 - 199 mg/dL Comment: Interpretive Data Ages < or = 19 years Acceptable: <170 mg/dL Borderline high: 170-199 mg/dL High: >or= 200 mg/dL Ages > or = 20 years Desirable: <200 mg/dL Borderline high: 200-239 mg/dL High: >or= 240 mg/dL Literature References: 1. Expert Panel on Integrated Guidelines for Cardiovascular Health and Risk Reduction in Children and Adolescents. Pediatrics 2011;128:S213 2. NCEP Expert Panel. Circulation 2004;110:227 Current Interpretive Data was last revised on 2018. Triglycerides 259(H) <=149 mg/dL [facility] Comment: Interpretive Data Ages < or = 9 years Acceptable: <75 mg/dL Borderline high: 75-99 mg/dL High: >or= 100 mg/dL Ages 10 to 20 years Acceptable: <90 mg/dL Borderline high: 90-129 mg/dL High: >or= 130 mg/dL Ages > or = 20 years Desirable: <150 mg/dL Borderline high: 150-199 mg/dL High: 200-499 mg/dL Very high: >or= 499 mg/dL Literature References: 1. Expert Panel on Integrated Guidelines for Cardiovascular Health and Risk Reduction in Children and Adolescents. Pediatrics 2011;128:S213 2. NCEP Expert Panel. Circulation 2004;110:227 Current Interpretive Data was last revised on 2018. HDL 53 >=40 mg/dL [facility] Comment: Interpretive Data Ages < or = 19 years Acceptable: >45 mg/dL Borderline low: 40-45 mg/dL Low: <40 mg/dL Ages > or = 20 years Desirable: >or= 60 mg/dL Low: <40 mg/dL Literature References: 1. Expert Panel on Integrated Guidelines for Cardiovascular Health and Risk Reduction in Children and Adolescents. Pediatrics 2011;128:S213 2. NCEP Expert Panel. Circulation 2004;110:227 Current Interpretive Data was last revised on 2018. LDL, calculated 67 <=129 mg/dL [facility] Comment: Interpretive Data Ages < or = 19 years Acceptable: <110 mg/dL Borderline high: 110-129 mg/dL High: >or= 130 mg/dL Ages > or = 20 years Optimal: <100 mg/dL Near optimal: 100-129 mg/dL Borderline high: 130-159 mg/dL High: >160 mg/dL Calculated using the Sánchez LDL-C estimating equation. This equation was implemented on 2024. Prior to this date LDL-C was estimated using the Friedewald equation. Literature References: 1. Expert Panel on Integrated Guidelines for Cardiovascular Health and Risk Reduction in Children and Adolescents. Pediatrics 2011;128:S213 2. NCEP Expert Panel. Circulation 2004;110:227 3. Gonzalo Shearer et al. BRANDI Cardiol. 2019January 27;5(5):540-548. doi: 10.1001/jamacardio.2020.0013 Current Interpretive Data was last revised on 2024. Non-HDL Cholesterol 108 mg/dL [facility] Comment: Interpretive Data Ages < or = 19 years Acceptable: <120 mg/dL Borderline high: 120-144 mg/dL High: >145 mg/dL Ages > or = 20 years When triglycerides are >200 mg/dL, Non-HDL cholesterol is a secondary target of therapy with treatment goals that are 30 mg/dL greater than the LDL cholesterol target. Literature References: 1. Expert Panel on Integrated Guidelines for Cardiovascular Health and Risk Reduction in Children and Adolescents. Pediatrics 2011;128:S213 2. NCEP Expert Panel. Circulation 2004;110:227 Current Interpretive Data was last revised on 2018. Chol/HDL ratio 3 [facility] MARTEL Blood 06/10/2024 11:5 1 AM CDT 06/10/2024 11:57 AM CDT Sol Flores NP LAB BLOOD ORDERABLES Final Result Performing Organization Address City/State/[facility] Co de Phone Number MARIIA [address] [facility] Department [place] [address] from Last 3 Months or Most Recently Relevant to Health Maintenance Insurance IDPA [facility] MEDICARE ADVANTAGE IDPA [employer] MEDICARE ADVANTAGE Advance Directives For more information, please contact: [phone] * Full Code (Latest Code Status on File) Date Activated Date Inactivated Comments 06/15/2024 3:04 PM 07/01/2024 10:16 PM Care Teams Welding 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
--- OUTSIDE RECORDS SUMMARY | 2025-08-04 15:49 | XMS_ITS | Patient Health Record ---
Author Organization [facility] Address [address] [place], [place] [id number] Care Team Providers Care Contact Lens Flashing Puncher Name Role Phone ЮЛИЯ Montejo Unavailable [phone] Torres Pedroza Unavailable Unavailable Reason For Referral No Information Social History Social History Additional Details Category Social Info Options Details Migrated Social History Migrated Social History Smoking Status : Never used tobacco , History of tobacco use : Plan Of Treatment No Information Insurance Providers Payer Name Payer Address Payer Phone Subscriber Number Group Number Insured Name Patient Relationship to Insured Coverage Start Date Coverage End Date [facility] [address] [address] [place] [id number] KALE COPPOLA Self - patient is the insured
--- OUTSIDE RECORDS SUMMARY | 2025-08-04 15:49 | XMS_ITS | Clinical Summary ---
Author Organization [facility] Address [address] [place] [address] Care Team Providers Care Button Puncher Name Role Phone Torres Pedroza MD Primary Care Provider [phone] Buck Tran MD Unavailable [phone] Allergies Active Allergy Reactions Criticality Noted Date [...] Active BD INSULIN SYRINGE U/F 31G X 5/16 1 ML Misc USE TWICE A DAY TO INJECT INSULIN DIRECTED 11/25/19 22 Active losartan 100 MG tabletIndication s:Hypertension Take 1 tablet (100 mg total) by mouth nightly at bedtime. Indications: High Blood Pressure Disorder at bedtime. 02/29/20 22 Active [place]-3 Fatty Acids (EQL FISH OIL) 1000 MG [...] s yndrome (ARDS) due to COVID-19 virus 04/06/2022 Chest pain of uncertain etiology 05/15/2018 Coronary artery disease invo lving [place] coronary artery of [place] heart without angina pectoris 09/03/2016 S/P angioplasty with stent 09/03/2016 Hypertension Overview (09/03/2016): History of hypertension treated with medication Hyperlipidemia Overview (09/03/2016): History of hyperlipidemia - treated. Diabetes Encounters Date Type Department Care Team Description 08/03/2025 4:51 PM [facility] Hospital Encounter [facility] [address] [place], [place] [id number] Connor Mccollum MD 08/03/2025 Orders Only [facility] [address] [place] [address] Connor Mccollum MD 08/02/2025 5:45 PM WARE FINISHER - 08/02/2025 11:59 PM WARE FINISHER Hospital Encounter [facility] [address] [place] [address] Connor Mccollum MD Discharge Disposition: Home or Self Care (Routine Discharge) 08/02/2025 Orders Only [facility] [address] [place] [address] Connor Mccollum MD from Last 3 Months Family History Medical History Relation Comments CABG [...] Industry Job Start Date Job End Date 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 Not on file Not on file Last Filed Vital Signs Vital Sign Reading Time Taken Comments Blood Pressure 152/56 05/05/2024 3:17 PM CDT Pulse 91 05/05/2024 3:16 PM CDT Temperature 36.8 C (98.2 F) 05/16/2022 1:36 PM CDT Respiratory Rate 18 05/05/2024 3:16 PM CDT Oxygen Saturation 99% 05/05/2024 3:16 PM CDT Inhaled Oxygen Concentration - - Weight 82.2 kg (181 lb 4.8 oz) 05/05/2024 3:16 P M CDT Height 165.1 cm (5' 5) 05/05/2024 3:16 PM CDT Body Mass Index 30.17 05/05/2024 3:16 PM CDT Plan of Treatment Health Maintenance Due Date Last Done Comments ASCVD Statin 1955 Colorectal Cancer Screening Colonoscopy (10 Years) 1953 Kidney Health Evaluation 1953 Diabetes: Retinopathy Eye Exam 1971 Hepatitis C 1971 DTaP, Tdap and Td Vaccines (1 - Tdap) 1972 Pneumococcal Vaccine: 50+ Years (1 of 2 - PCV) 1972 Mammogram Screening 1993 RSV Immunization or 60+ Years (1 - Risk 60-74 years 1-dose series) 2013 Annual Medicare Wellness Visit 2018 Dexa Scan (General) 2018 Zoster Vaccines (2 of 2) 11/29/2019 10/04/2019 PHQ-2 (Physician [place]) 09/29/2024 COVID-19 Vaccine ( - season) 2025 Influenza Adult (#1) 2025 06/16/2019 Hemoglobin A1C 01/31/2026 08/03/2025, 08/0 01/2025, 01/31/2025, Additional history exists Lipid Panel 05/03/2026 05/03/2025, 020 12/2024, 04/06/2024, Additional history exists Hepatitis A Vaccines Aged Out No long er eligible based on patient's age to complete this topic Meningococcal B Vaccine Aged Out No l onger eligible based on patient's age to complete this topic Meningococcal Vaccine Aged Out No miquel lucretia eligible based on patient's age to complete this topic RSV Immunizations Under 20 Months Aged Out No longer eligible based on patient's age to complete this topic Procedures Procedure Name Priority Date/Time Associated Diagnosis Comments BASIC METABOLIC PANEL Routine 08/03/2025 12:30 PM WARE FINISHER Anemia, unspecified Heart failure (CMS/HCC HHS/HCC) Chronic kidney disease, unspecified Diabetes mellitus (CMS/HCC HHS/HCC) Hyperlipemia CBC W/DIFF AUTOMATED Routine 08/03/2025 12:30 PM WARE FINISHER Anemia, unspecified Heart failure (CMS/HCC HHS/HCC) Chronic kidney disease, unspecified Diabetes mellitus (CMS/HCC HHS/HCC) Hyperlipemia PRO-BRAIN NATRIURETIC PEPTIDE Routine 08/03/2025 12:30 PM WARE FINISHER Anemia, unspecified Heart failure ([facility]/HCC HHS/HCC) Chronic kidney disease, unspecified Diabetes mellitus ([facility]/HCC HHS/HCC) Hyperlipemia HEMOGLOBIN, GLYCOSYLATED Routine 08/03/2025 12:30 PM WARE FINISHER Anemia, unspecified Heart failure ([facility]/HCC HHS/HCC) Chronic kidney disease, unspecified Diabetes mellitus ([facility]/HCC HHS/HCC) Hyperlipemia URINE BACTERIA CULTURE Routine 08/02/2025 4:30 PM WARE FINISHER Dysuria URINALYSIS MICRO ONLY Routine 08/02/2025 4:30 PM WARE FINISHER HC URINALYSIS AUTO W/O MICRO Routine 08/02/2025 4:30 PM WARE FINISHER Dysuria LIPID PANEL Routine 05/03/2025 6:40 AM CDT Hyperlipidemia DM (diabetes mellitus) ([facility] HHS/HCC) CHF (congestive heart failure) ([facility] HHS/HCC) from Last 3 Months or Most Recently Relevant to Health Maintenance Results * (ABNORMAL) PRO-BRAIN NATRIURETIC PEPTIDE (08/03/2025 12:30 PM WARE FINISHER) [facility] PRO-B TYPE NATRIURETIC PEPTIDE 1,959(H) <125 PG/ML 08/03/2025 5:51 PM WARE FINISHER [facility] Comment: CUT POINTS ESTABLISHED BY INTERNATIONAL [employer]LL[employer]AT[employer] ON NT PROBNP (ICON) STUDY (2006). AGE INDEPENDENT: <300 PG/ML HAS A 99% [...] FOR ACUTE CHF. 08/03/2025 12:3 0 PM WARE FINISHER us Connor Edmonder MD LABORATORY Final Result Performing Organization Address [facility]/ZIP Co de Phone Number [facility] [address] [place] [address], * (ABNORMAL) HEMOGLOBIN, GLYCOSYLATED (08/03/2025 12:30 PM WARE FINISHER) HGB A1C 7.5(H) <5.7 % 08/03/2025 5:14 PM WARE FINISHER [facility] Comment: INCREASED RISK OF DIABETES <5.7% NON-DIABETES 5.7-6.4% INCREASED RISK FOR FUTURE DIABETES > OR = 6.5 CONSISTENT WITH DIABETES STANDARDS OF MEDICAL CARE IN DIABETES-2010 DIABETES CARE, 33(SUPP 1): S1-S61,2010 ESTIMATED AVG GLUCOSE 169 mg/dL 08/03/2025 5:14 PM WARE FINISHER [facility] 08/03/2025 12:3 0 PM WARE FINISHER Connor Mccollum MD LABORATORY Final Result Performing Organization Address [facility] Co de Phone Number [facility] [address] [place] [address], * (ABNORMAL) BASIC METABOLIC PANEL (08/03/2025 12:30 PM WARE FINISHER) GLUCOSE 245(H) 70 - 99 MG/DL 08/03/2025 5:51 PM WARE FINISHER [facility] BUN 95(HH) 7 - 18 MG/DL 08/03/2025 5:51 PM WARE FINISHER [facility] Comment: Critical Result(s) Called at: 17:49:26 on 08/03/2025 by: LOUIE SALDANA to and read back by:DANIELA DIAZ RN CREATININE S/P/B 8.03(HH) 0.55 - 1.02 MG/DL 08/03/2025 5:51 PM WARE FINISHER [facility] Comment: Critical Result(s) Called at: 17:49:56 on 08/03/2025 by: LOUIE SALDANA to and read back by:DANIELA DIAZ RN SODIUM S/P/B 123(L) 136 - 145 MMOL/L 08/03/2025 5:51 PM [facility] POTASSIUM S/P/B 7.2(HH) 3.5 - 5.1 MMOL/L 08/03/2025 5:51 PM [facility] Comment: Critical Result(s) Called at: 17:50:09 on 08/03/2025 by: LOUIE SALDANA to and read back by:DANIELA DIAZ RN&XD&&XA&&XD&&XA&REPEATED AND VERIFIED CHLORIDE S/P/B 95(L) 100 - 108 MMOL/L 08/03/2025 5:51 PM [facility] CO2 14.4(L) 21 - 32 MMOL/L 08/03/2025 5:51 PM [facility] CALCIUM S/P/B 8.0(L) 8.5 - 10.1 MG/DL 08/03/2025 5:51 PM [facility] ANION GAP 13.6 5 - 15 MMOL/L 08/03/2025 5:51 PM [facility] BUN CREATININE RATIO 11.8 6 - 26 08/03/2025 5:51 PM [facility] GFR ESTIMATE 5(L) >90 ML/MIN/1.7 3 M2 08/03/2025 5:51 PM [facility] Comment: NOTE: eGFR is not calculated for patients <18 years of age. This is an estimated GFR calculation using the new CKD EPI creatinine equation without race and so does not require a correction factor for race. This estimated GFR should not be used for calculating drug doses. 08/03/2025 12:3 0 PM WARE FINISHER us Connor Mccollum MD LABORATORY Final Result [facility] [address] [place] [address], * (ABNORMAL) CBC W/DIFF AUTOMATED (08/03/2025 12:30 PM WARE FINISHER) WBC 9.23 4.4 - 11.0 x10'3/uL 08/03/2025 5:10 PM [facility] RBC 2.92(L) 4.50 - 5.10 x10'6/uL 08/03/2025 5:10 PM [facility] HGB 9.0(L) 12.3 - 15.3 G/DL 08/03/2025 5:10 PM [facility] HCT 27.6(L) 35.9 - 44.6 % 08/03/2025 5:10 PM [facility] MCV 94.5 80.0 - 96.0 FL 08/03/2025 5:10 PM [facility] MCH 30.8 25.3 - 30.9 PG 08/03/2025 5:10 PM [facility] MCHC 32.6 31.0 - 34.1 G/DL 08/03/2025 5:10 PM [facility] RDW 13.2 12.4 - 15.1 % 08/03/2025 5:10 PM [facility] PLT 227 151 - 353 x10'3/uL 08/03/2025 5:10 PM [facility] MPV 10.4 9.6 - 12.0 FL 08/03/2025 5:10 PM [facility] RBC MORPHOLOGY NORMAL 08/03/2025 5:10 PM [facility] PLT MORPH. NORMAL 08/03/2025 5:10 PM WARE FINISHER [facility] WBC MORPHOLOGY NORMAL 08/03/2025 5:10 PM [facility] LYMPHOCYTES % 23.1 15.8 - 45.0 % 08/03/2025 5:10 PM [facility] NEUTROPHILS % 66.6 42.1 - 71.9 % 08/03/2025 5:10 PM WARE FINISHER [facility] MONOCYTES % 6.9 5.7 - 12.5 % 08/03/2025 5:10 PM [facility] EOSINOPHILS 1.8 0.0 - 5.6 % 08/03/2025 5:10 PM [facility] BASOPHILS 0.9 0.0 - 1.3 % 08/03/2025 5:10 PM [facility] ABS. NEUTROPHILS 6.15(H) 1.40 - 6.00 x10'3/uL 08/03/2025 5:10 PM [facility] IMMATURE GRANS % 0.7(H) 0.0 - 0.5 % 08/03/2025 5:10 PM [facility] ABS. LYMPHOCYTES 2.13 0.80 - 4.70 x10'3/uL 08/03/2025 5:10 PM [facility] 08/03/2025 12:3 0 PM WARE FINISHER us Connorjulissa Mccollum MD LABORATORY Final Result [facility] [address] [place] [address], * (ABNORMAL) URINALYSIS (08/02/2025 4:30 PM WARE FINISHER) COLOR (U) YELLOW 08/02/2025 6:17 PM WARE FINISHER [facility] TRANSPARENCY TURBID 08/02/2025 6:17 PM [facility] SPECIFIC GRAVITY (U) 1.020 1.000 - 1.030 08/02/2025 6:17 PM [facility] U PH 5.5 5.0 - 9.0 08/02/2025 6:17 PM [facility] LEUKOCYTES (U) 3+(A) NEGATIVE 08/02/2025 6:17 PM [facility] NITRITES NEGATIVE NEGATIVE 08/02/2025 6:17 PM [facility] PROTEIN RANDOM (U) 1+(A) NEGATIVE 08/02/2025 6:17 PM [facility] GLUCOSE (U) NEGATIVE NEGATIVE 08/02/2025 6:17 PM [facility] KETONES MG/DL (U) NEGATIVE NEGATIVE 08/02/2025 6:17 PM [facility] BILIRUBIN (U) NEGATIVE NEGATIVE 08/02/2025 6:17 PM [facility] BLOOD (U) 2+(A) NEGATIVE 08/02/2025 6:17 PM [facility] URINE SPECIMEN / Unknown 08/02/2025 4:30 PM WARE FINISHER us Connorjulissa Mccollum MD URINE ORDERABLES Final Result [facility] [address] [place] [address], * URINALYSIS MICRO ONLY (08/02/2025 4:30 PM WARE FINISHER) WBC/HPF TOO NUMEROUS TO COUNT 0 - 5 /HPF 08/02/2025 6:17 PM [facility] RBC/HPF 0-5 0 - 5 /HPF 08/02/2025 6:17 PM WARE FINISHER [facility] EPI/HPF FEW /HPF 08/02/2025 6:17 PM WARE FINISHER [facility] BACTERIA (U) FEW /HPF 08/02/2025 6:17 PM WARE FINISHER [facility] 08/02/2025 4:30 PM WARE FINISHER Connor Chun AGUERO URINE ORDERABLES Final Result [facility] [address] [place] [address], * (ABNORMAL) LIPID PANEL (05/03/2025 6:40 AM CDT) CHOLESTEROL 130 <200.0 MG/DL 05/03/2025 10:28 AM CDT [facility] TRIGLYCERIDES 191(H) <150 MG/DL 05/03/2025 10:28 AM CDT [facility] HDL 46 >40.0 MG/DL 05/03/2025 10:28 AM T [facility] LDL (CALCULATED) 46 <100 MG/DL 05/03/2025 10:28 AM T [facility] Comment:CALCULATED USING THE FRIEDEWALD EQUATION NON HDL CHOLESTEROL 84 <130 MG/DL 05/03/2025 10:28 AM T [facility] CHOL/HDL RATIO 2.8 0.0 - 4.5 05/03/2025 10:28 AM T [facility] VLDL CALCULATION 38 5 - 55 MG/DL 05/03/2025 10:28 AM [facility] LIPID INTERPRETATION 05/03/2025 10:28 AM T [facility] Comment: NIH CONCENSUS REPORT RECOMMENDATIONS: ADULT CHILD LOW RISK: CHOLESTEROL <200 <170 TRIGLYCERIDE <150 --- HDL >=60 --- LDL <100 <110 BORDERLINE: CHOLESTEROL 200-239 170-199 TRIGLYCERIDE 150-199 --- HDL 40-59 --- LDL 100-159 110-129 HIGH RISK: CHOLESTEROL >=240 >=200 TRIGLYCERIDE >=200 --- HDL <40 --- LDL >=160 >=130 05/03/2025 6:40 AM CDT Connorjulissa Mccollum MD LABORATORY Final Result Performing Organization Address City/State/[facility] Co de Phone Number [facility] [address] [place] [address], from Last 3 Months or Most Recently Relevant to Health Maintenance Insurance MEDICAID MEDICAID [facility] MEDICARE Advance Directives * Full Code (Latest Code Status on File) Date Activated Date Inactivated Comments 04/18/2022 4:27 PM * Full Code Date Activated Date Inactivated Comments 04/06/2022 5:43 AM 04/16/2022 5:39 PM Care Teams Button Puncher Relationship Specialty Start Date End Date Torres Pedroza MD [address] [place] [address] PCP - General INTERNAL MEDICINE 12/14/18 Buck Tran MD [address] [facility] [address] [place] [address] Physician INTERVENTIONAL CARDIOLOGY 12/03/24
--- OUTSIDE RECORDS SUMMARY | 2025-08-04 15:49 | XMS_ITS | Encounter Summary ---
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 Not on [...] documented in this encounter Plan of Treatment Pending Results Name Type Priority Associated Diagnoses Date /Time URINE BACTERIA CULTURE Microbiology Routine Dysuria 08/02/2025 4:30 PM PHARMACY CARE COORDINATOR documented as of this encounter Results * (ABNORMAL) URINALYSIS (08/02/2025 4:30 PM PHARMACY CARE COORDINATOR) COLOR (U) YELLOW 08/02/2025 6:17 PM [facility] TRANSPARENCY TURBID 08/02/2025 6:17 PM [facility] SPECIFIC GRAVITY (U) 1.020 1.000 - 1.030 08/02/2025 6:17 PM [facility] U PH 5.5 5.0 - 9.0 08/02/2025 6:17 PM [facility] LEUKOCYTES (U) 3+(A) NEGATIVE 08/02/2025 6:17 PM [facility] NITRITES NEGATIVE NEGATIVE 08/02/2025 6:17 PM [facility] PROTEIN RANDOM (U) 1+(A) NEGATIVE 08/02/2025 6:17 PM [facility] GLUCOSE (U) NEGATIVE NEGATIVE 08/02/2025 6:17 PM [facility] KETONES MG/DL (U) NEGATIVE NEGATIVE 08/02/2025 6:17 PM PHARMACY CARE COORDINATOR [facility] BILIRUBIN (U) NEGATIVE NEGATIVE 08/02/2025 6:17 PM PHARMACY CARE COORDINATOR [facility] BLOOD (U) 2+(A) NEGATIVE 08/02/2025 6:17 PM PHARMACY CARE COORDINATOR [facility] URINE SPECIMEN / Unknown 08/02/2025 4:30 PM PHARMACY CARE COORDINATOR us Connor Chun AGUERO URINE ORDERABLES Final Result Performing Organization Address City/State/[facility] Co de Phone Number [facility] [address] [place] [phone], documented in this encounter Visit Diagnoses Diagnosis Dysuria- Primary documented in this encounter Care Teams Inspector Subassemblies Relationship Specialty Start Date End Date Torres Pedroza MD [address] [place] [address] PCP - General INTERNAL MEDICINE 12/14/18 Buck Tran MD [address] [facility] [address] [place] [address] Physician INTERVENTIONAL CARDIOLOGY 12/03/24 documented as of this encounter
--- OUTSIDE RECORDS SUMMARY | 2025-08-04 15:49 | XMS_ITS | Encounter Summary ---
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 Not on [...] on file documented as of this encounter Results * (ABNORMAL) HEMOGLOBIN, GLYCOSYLATED (08/03/2025 12:30 PM PASTE UP ARTIST APPRENTICE) Pathologist [facility] HGB A1C 7.5(H) <5.7 % 08/03/2025 5:14 PM PASTE UP ARTIST APPRENTICE [facility] Comment: INCREASED RISK OF DIABETES <5.7% NON-DIABETES 5.7-6.4% INCREASED RISK FOR FUTURE DIABETES > OR = 6.5 CONSISTENT WITH DIABETES STANDARDS OF MEDICAL CARE IN DIABETES-2010 DIABETES CARE, 33(SUPP 1): S1-S61,2010 ESTIMATED AVG GLUCOSE 169 mg/dL 08/03/2025 5:14 PM PASTE UP ARTIST APPRENTICE [facility] 08/03/2025 12:3 0 PM PASTE UP ARTIST APPRENTICE us Connorjulissa Mccollum MD LABORATORY Final Result [facility] [address] [place] [address], * (ABNORMAL) PRO-BRAIN NATRIURETIC PEPTIDE (08/03/2025 12:30 PM PASTE UP ARTIST APPRENTICE) PRO-B TYPE NATRIURETIC PEPTIDE 1,959(H) <125 PG/ML 08/03/2025 5:51 PM PASTE UP ARTIST APPRENTICE [facility] Comment: CUT POINTS ESTABLISHED BY INTERNATIONAL [...] FOR ACUTE CHF. 08/03/2025 12:3 0 PM PASTE UP ARTIST APPRENTICE us Connorjulissa Mccollum MD LABORATORY Final Result [facility] [address] [place] [address], * (ABNORMAL) CBC W/DIFF AUTOMATED (08/03/2025 12:30 PM PASTE UP ARTIST APPRENTICE) WBC 9.23 4.4 - 11.0 x10'3/uL 08/03/2025 5:10 PM [facility] RBC 2.92(L) 4.50 - 5.10 x10'6/uL 08/03/2025 5:10 PM [facility] HGB 9.0(L) 12.3 - 15.3 G/DL 08/03/2025 5:10 PM [facility] HCT 27.6(L) 35.9 - 44.6 % 08/03/2025 5:10 PM [facility] MCV 94.5 80.0 - 96.0 FL 08/03/2025 5:10 PM [facility] MCH 30.8 25.3 - 30.9 PG 08/03/2025 5:10 PM [facility] MCHC 32.6 31.0 - 34.1 G/DL 08/03/2025 5:10 PM [facility] RDW 13.2 12.4 - 15.1 % 08/03/2025 5:10 PM [facility] PLT 227 151 - 353 x10'3/uL 08/03/2025 5:10 PM [facility] MPV 10.4 9.6 - 12.0 FL 08/03/2025 5:10 PM [facility] RBC MORPHOLOGY NORMAL 08/03/2025 5:10 PM [facility] PLT MORPH. NORMAL 08/03/2025 5:10 PM [facility] WBC MORPHOLOGY NORMAL 08/03/2025 5:10 PM [facility] LYMPHOCYTES % 23.1 15.8 - 45.0 % 08/03/2025 5:10 PM [facility] NEUTROPHILS % 66.6 42.1 - 71.9 % 08/03/2025 5:10 PM [facility] MONOCYTES % 6.9 5.7 - 12.5 % 08/03/2025 5:10 PM [facility] EOSINOPHILS 1.8 0.0 - 5.6 % 08/03/2025 5:10 PM [facility] BASOPHILS 0.9 0.0 - 1.3 % 08/03/2025 5:10 PM [facility] ABS. NEUTROPHILS 6.15(H) 1.40 - 6.00 x10'3/uL 08/03/2025 5:10 PM [facility] IMMATURE GRANS % 0.7(H) 0.0 - 0.5 % 08/03/2025 5:10 PM [facility] ABS. LYMPHOCYTES 2.13 0.80 - 4.70 x10'3/uL 08/03/2025 5:10 PM [facility] 08/03/2025 12:3 0 PM PASTE UP ARTIST APPRENTICE Connorjulissa Mccollum MD LABORATORY Final Result [facility] [address] [place] [address], * (ABNORMAL) BASIC METABOLIC PANEL (08/03/2025 12:30 PM PASTE UP ARTIST APPRENTICE) GLUCOSE 245(H) 70 - 99 MG/DL 08/03/2025 5:51 PM [facility] BUN 95(HH) 7 - 18 MG/DL 08/03/2025 5:51 PM [facility] Comment: Critical Result(s) Called at: 17:49:26 on 08/03/2025 by: LOUIE SALDANA to and read back by:DANIELA DIAZ RN CREATININE S/P/B 8.03(HH) 0.55 - 1.02 MG/DL 08/03/2025 5:51 PM [facility] Comment: Critical Result(s) Called at: 17:49:56 on 08/03/2025 by: LOUIE SALDANA to and read back by:DANIELA DIAZ RN SODIUM S/P/B 123(L) 136 - 145 MMOL/L 08/03/2025 5:51 PM [facility] POTASSIUM S/P/B 7.2(HH) 3.5 - 5.1 MMOL/L 08/03/2025 5:51 PM [facility] Comment: Critical Result(s) Called at: 17:50:09 on 08/03/2025 by: LOUIE SALDANA to and read back by:DANIELA DIAZ RN&XD&&XA&&XD&&XA&REPEATED AND VERIFIED CHLORIDE S/P/B 95(L) 100 - 108 MMOL/L 08/03/2025 5:51 PM [facility] CO2 14.4(L) 21 - 32 MMOL/L 08/03/2025 5:51 PM [facility] CALCIUM S/P/B 8.0(L) 8.5 - 10.1 MG/DL 08/03/2025 5:51 PM [facility] ANION GAP 13.6 5 - 15 MMOL/L 08/03/2025 5:51 PM [facility] BUN CREATININE RATIO 11.8 6 - 26 08/03/2025 5:51 PM [facility] GFR ESTIMATE 5(L) >90 ML/MIN/1.7 3 M2 08/03/2025 5:51 PM [facility] Comment: NOTE: eGFR is not calculated for patients <18 years of age. This is an estimated GFR calculation using the new CKD EPI creatinine equation without race and so does not require a correction factor for race. This estimated GFR should not be used for calculating drug doses. 08/03/2025 12:3 0 PM [facility] UP ARTIST APPRENTICE us Connorjulissa Mccollum MD LABORATORY Final Result [facility] [address] [place] [address], documented in this encounter Visit Diagnoses Diagnosis Anemia, unspecified- Primary Heart failure ([facility] HHS/HCC) Heart failure Chronic kidney disease, unspecified Diabetes mellitus ([facility] HHS/HCC) Diabetes mellitus Hyperlipemia Other and unspecified hyperlipidemia documented in this encounter Care Teams Jewelry Salesperson Relationship Specialty Start Date End Date Torres Pedroza MD [address] [place] [address] PCP - General INTERNAL MEDICINE 12/14/18 Buck Tran MD [address] [facility], [facility] [id number] [place] [address] Physician INTERVENTIONAL CARDIOLOGY 12/03/24 documented as of this encounter
[2025-08-04 20:20] LABS: Albumin Level 3.5 g/dL (3.5-5.1); Anion Gap 8 mmol/L (4-12); Blood Urea Nitrogen 73 mg/dL (7-17); Calcium 7.8 mg/dL (8.4-10.2); Carbon Dioxide 18 mmol/L (22-30); Chloride 102 mmol/L (98-107); Estimated CRCL calculation 9 ml/min; Estimated Glomerular Filt Rate 9; Glucose 218 mg/dL (65-110); Potassium 5.4 mmol/L (3.4-5.0); Sodium 128 mmol/L (137-145)
[2025-08-04] MEDS: ROSUVASTATIN 10 MG TABLET PO (20:45)
[2025-08-04] MEDS: cefTRIAXone 1 GM in SODIUM CHLORIDE 0.9% IV 50 ML 100 ML IVPB (21:01)
[2025-08-05] VITALS (12 sets, daily range): BP systolic 106–149; BP diastolic 40–58; PULSE 57–73; RESP 14–22; TEMP 36.2–36.6; O2SAT 97–100
[2025-08-05] MEDS: SUCRALFATE SUSP 100 MG/ML 10 ML UDC 1000 MG PO ×4 (06:22→21:22)
[2025-08-05 06:37] LABS: Hematocrit 23.7 % (37.0-47.0); Hemoglobin 7.7 g/dL (12.0-15.0); Immature Granulocyte Percent A 0.4 % (0-0.5); Lymphocytes Absolute Auto 1.47 K/mm3 (0.9-3.2); Mean Corpuscular HGB Conc 32.5 g/dl (32-36); Mean Corpuscular Hemoglobin 30.6 pg (26-34); Mean Corpuscular Volume 94.0 fl (80-100); Nucleated Red Blood Cells Absolute Auto 0.000 K/mm3 (0.0-0.012); Nucleated Red Blood Cells Perc 0.0 % (0.0-0.2); Platelet Count Result 187 k/mm3 (150-375); Red Blood Count 2.52 M/mm3 (4.2-5.4); White Blood Count 6.7 K/mm3 (4.5-10.0)
[2025-08-05 06:47] LABS: Alanine Aminotransferase 13 U/L (6-35); Albumin Level 3.1 g/dL (3.5-5.1); Alkaline Phosphatase 79 U/L (38-126); Anion Gap 8 mmol/L (4-12); Aspartate Amino Transferase 20 U/L (14-36); Bilirubin,Total 0.3 mg/dL (0.2-1.3); Blood Urea Nitrogen 70 mg/dL (7-17); Calcium 7.9 mg/dL (8.4-10.2); Carbon Dioxide 16 mmol/L (22-30); Chloride 105 mmol/L (98-107); Estimated CRCL calculation 10 ml/min; Estimated Glomerular Filt Rate 11; Glucose 193 mg/dL (65-110); Potassium 5.1 mmol/L (3.4-5.0); Sodium 129 mmol/L (137-145); Total Protein 6.3 g/dL (6.3-8.2)
[2025-08-05] MEDS: LORATADINE 10 MG TABLET PO (08:17)
[2025-08-05] MEDS: ASPIRIN 81 MG ENTERIC TABLET PO (08:17)
[2025-08-05] MEDS: METOPROLOL SUCCINATE EXT REL 50 MG TABCR PO ×2 (08:17→21:22)
[2025-08-05] MEDS: AMIODARONE HCL 200 MG TABLET PO ×2 (08:17→21:21)
[2025-08-05] MEDS: SERTRALINE HCL 25 MG TABLET PO (08:17)
[2025-08-05] MEDS: PANTOPRAZOLE SOD SESQUIHYDRATE 20 MG TAB PO (08:17)
[2025-08-05] MEDS: CLOPIDOGREL BISULFATE 75 MG TABLET PO (08:18)
[2025-08-05] MEDS: DICYCLOMINE HCL 10 MG CAPSULE PO ×4 (08:18→21:21)
--- NOTE | 2025-08-05 09:46 | P.PNNP_ITS ---
Progress Note: A&P Assessment and Plan (1) Acute kidney injury: Code(s): N17.9 - Acute kidney failure, unspecified Status: Acute Assessment and Plan: * as noted by admission labs (creatinine 7.94mg/dl) * normal creatinine at baseline (by September 2024 discharge labs from here) * however, may have some underlying CKD based on outpatient labs: * creatinine 1.19mg/dl in late September 2024 * creatinine 1.37,g/dl in October 2024 * creatinine 1.7mg/dl in April 2025 * suspect multifactorial etiology: * prerenal factors * ARB use prior to admission * infection (UTI) * contrast exposure (with CT scan on 07/29/25) * other(?) * evaluation to date noted: * CT imaging with obstruction * renal u/s without obstruction (but evidence of medical renal disease) * urine electrolytes prerenal * urine eosinophils rare - possibly due to UTI * moderate proteinuria * CPK normal * ESR elevated (chronically elevated since September 2024) * CRP normal * extensive serologies pending * continue trial of IVFs * follow trend of repeat labs and UOP (2) Acute hyperkalemia: Code(s): E87.5 - Hyperkalemia Status: Acute Assessment and Plan: * due to MILENA and continued losartan use prior to admission * s/p medical management * follow trend of repeat K+ levels (3) Hyponatremia: Code(s): E87.1 - Hypo-osmolality and hyponatremia Status: Chronic Assessment and Plan: * somewhat of a chronic issue * baseline sodium runs ~ 126 - 136mmol/L in the last year * admission sodium 129mmol/L * suspect partly due to MILENA and associated volume depletion * follow trend with IVFs (4) Metabolic acidosis: Code(s): E87.20 - Acidosis, unspecified Status: Acute Assessment and Plan: * due to MILENA/ARF * attempting to compensate with oral sodium bicarbonate * should improve as renal function does * wean off as tolerated (5) Urinary tract infection: Code(s): N39.0 - Urinary tract infection, site not specified Status: Acute Assessment and Plan: * suggested by admission * some clinical symptoms noted as well * follow urine culture results * on antibiotics (6) Anemia: Code(s): D64.9 - Anemia, unspecified Status: Chronic Assessment and Plan: * chronic issues as well * drop in H/H noted due to hemodilution/IVFs * also likely exacerbated by MILENA/ARF * follow trend of H/H (7) Hypertension: Qualifiers: Hypertension type: primary hypertension Qualified Code(s): I10 - Essential (primary) hypertension Code(s): I10 - Essential (primary) hypertension Status: Chronic Assessment and Plan: * reasonable control at this time * off losartan due to #1 * follow trend of hemodynamics (8) Insulin dependent type 2 diabetes mellitus: Code(s): E11.9 - Type 2 diabetes mellitus without complications; Z79.4 - longterm (current) use of insulin Status: Chronic Assessment and Plan: * follow accu-cheks * glycemic control per hospitalist Will continue to follow. Subjective Date/time seen: 08/05/25 09:46 Interval history: Follow-up for acute kidney injury/acute renal failure Renal function/creatinine slowly improving with good urine output and stabilization of potassium; no apparent distress noted at the time of my visit; no other issues/events overnight or earlier this morning. Exam Narrative: General: elderly but WD/WN female in NAD Heart: normal S1 and S2; no rub Lungs: clear to auscultation Abdomen: soft, nontender, nondistended, positive bowel sounds; + ileostomy and colostomy Extremities: no cyanosis or clubbing; no edema Skin: warm and dry Objective Data Vital Signs Vital Signs: Vital Signs Temp Pulse Resp BP Pulse Ox O2 Del Method 08/05/25 09:22 97 Room Air 08/05/25 08:17 66 08/05/25 08:17 66 08/05/25 08:00 97.1 F L 63 14 106/58 L 97 08/05/25 08:00 73 08/05/25 08:00 Room Air 08/05/25 04:32 97.8 F 73 22 H 137/40 L 97 08/05/25 04:00 64 08/05/25 00:00 63 08/05/25 00:00 97.7 F 63 16 120/46 L 97 08/04/25 20:56 97.6 F 66 16 117/41 L 100 08/04/25 20:44 67 08/04/25 20:44 67 08/04/25 20:00 63 16 97 Room Air 08/04/25 20:00 67 08/04/25 20:00 97.6 F 66 16 117/41 L 100 Intake/Output Intake/Output: Intake & Output 08/02/25 08/03/25 08/04/25 08/05/25 23:59 23:59 23:59 23:59 Intake Total 1050 2020 1080 Output Total 3675 0710 Balance 6312 -1700 -038 Meds/Results Medications: Active Medications Generic Name Dose Route Start Last Admin Trade Name Freq PRN Reason Stop Dose Admin Acetaminophen 650 mg 08/04/25 00:46 08/04/25 01:25 Acetaminophen 325 Mg Tablet PO 650 mg Q6H PRN Administration Pain Amiodarone HCl 200 mg 08/04/25 09:00 08/05/25 08:17 Amiodarone Hcl 200 Mg Tablet PO 200 mg Q12HR [place] Administration Aspirin 81 mg 08/04/25 09:00 08/05/25 08:17 Aspirin 81 Mg Enteric Tablet PO 09/03/25 08:59 81 mg DAILY [place] Administration Calcium Polycarbophil 625 mg 08/04/25 09:00 08/05/25 08:18 Calcium Polycarbophil 625 Mg Tablet PO 625 mg DAILY [place] Administration Clopidogrel Bisulfate 75 mg 08/04/25 09:00 08/05/25 08:18 Clopidogrel Bisulfate 75 Mg Tablet PO 75 mg DAILY [place] Administration Dicyclomine HCl 10 mg 08/04/25 09:00 08/05/25 12:09 Dicyclomine Hcl 10 Mg Capsule PO 10 mg QID [place] Administration Diphenoxylate HCl/Atropine 2 tablet 08/04/25 00:46 Diphenoxylate/Atropine (*Crx) 2.5 Mg Tablet PO BID PRN Diarrhea Glucagon 1 mg 08/04/25 00:48 Glucagon For Inj 1 Mg Vial IM PRN PRN Hypoglycemia Protocol Glucose 15 gm 08/04/25 00:48 Glucose Oral Gel 15 Gm Of Glucse In 37.5 Gm Tube PO PRN PRN Hypoglycemia Protocol Ceftriaxone Sodium 1 gm/ 50 mls @ 100 mls/hr 08/04/25 22:00 08/04/25 21:01 Sodium Chloride IVPB 100 mls/hr Q24H [place] Administration Dextrose 1,000 mls @ 100 mls/hr 08/04/25 00:48 Dextrose 5% 1,000 Ml IVPB PRN PRN Hypoglycemia Protocol Sodium Chloride 1,000 mls @ 100 mls/hr 08/05/25 09:10 08/05/25 10:08 Normal Saline Iv IV CONT 100 mls/hr .Q10H [place] Administration Insulin Aspart 3 - 6 units 08/04/25 08:00 08/05/25 12:32 Insulin Aspart (*Bkc) 100 Units/Ml SUB-Q 4 units TIDWM [place] Administration Protocol Loratadine 10 mg 08/04/25 09:00 08/05/25 08:17 Loratadine 10 Mg Tablet PO 09/03/25 08:59 10 mg DAILY [place] Administration Metoprolol Succinate 50 mg 08/04/25 09:00 08/05/25 08:17 Metoprolol Succinate Ext Rel 50 Mg Tabcr PO 50 mg Q12HR [place] Administration Pantoprazole Sodium 20 mg 08/04/25 09:00 08/05/25 08:17 Pantoprazole Sod Sesquihydrate 20 Mg Tab PO 20 mg DAILY [place] Administration Rosuvastatin Calcium 10 mg 08/04/25 21:00 08/04/25 20:45 Rosuvastatin 10 Mg Tablet PO 10 mg HS [place] Administration Sertraline HCl 25 mg 08/04/25 09:00 08/05/25 08:17 Sertraline Hcl 25 Mg Tablet PO 25 mg DAILY [place] Administration Sodium Bicarbonate 650 mg 08/05/25 09:05 08/05/25 10:08 Sodium Bicarbonate Tab 650 Mg Tablet PO 650 mg BID [place] Administration Sodium Zirconium Cyclosilicate 10 gm 08/05/25 10:00 08/05/25 10:07 Sodium Zirconium Cyclosilicate 10 Gm Powd.Pack PO 10 gm BID@1000,1800 [place] Administration Sucralfate 1,000 mg 08/04/25 06:30 08/05/25 12:09 Sucralfate Susp 100 Mg/Ml 10 Ml Udc PO 1,000 mg ACHS [place] Administration Radiology Results: ITS Impressions Chest/Abdomen/Pelvis CT 08/03/25 21:34 IMPRESSION: 1. Cholelithiasis. 2: Pelvic relaxation. 3: No acute abnormality of the chest, abdomen or pelvis. Renal Ultrasound 08/04/25 11:51 IMPRESSION: 1. Mildly increased echotexture of the kidneys may represent underlying medical renal disease. 2. Limited evaluation of the urinary bladder. Chest X-Ray 08/05/25 09:33 IMPRESSION: 1. No focal acute process. Labs Labs: Laboratory Tests 08/05/25 05:31 WBC 6.7 Hgb 7.7 L Hct 23.7 L Plt Count 187 Sodium 129 L Potassium 5.1 H Chloride 105 Carbon Dioxide 16 L Anion Gap 8 BUN 70 H Creatinine 4.14 H Estim Creat Clear Calc 10 Estimated GFR 11 L Glucose 193 H Calcium 7.9 L Phosphorus 4.9 H Total Bilirubin 0.3 AST 20 ALT 13 Alkaline Phosphatase 79 Total Protein 6.3 Albumin 3.1 L
[2025-08-05] MEDS: SODIUM ZIRCONIUM CYCLOSILICATE 10 GM POWD.PACK PO ×2 (10:07→18:32)
[2025-08-05] MEDS: SODIUM CHLORIDE 0.9% IV 1,000 ML 100 ML IV CONT ×2 (10:08→21:25)
[2025-08-05] MEDS: SODIUM BICARBONATE TAB 650 MG TABLET PO ×2 (10:08→16:33)
--- NOTE | 2025-08-05 10:24 | PM.IMPN ---
Progress Note: A&P Assessment and Plan (1) Acute kidney injury: Code(s): N17.9 - Acute kidney failure, unspecified Status: Acute Assessment and Plan: Came in with significantly elevated BUN/creatinine of 87/6.87, creatinine now improving to 6.19. No prior history of CKD or ESRD. Patient was significantly dehydrated with significant UTI as well. These are likely contributing factors to MILENA. Nephrology has been consulted. Cr 7.94>>4.14 today Continue monitoring renal function Avoid nephrotoxic agents Renal dosing of drugs Await Nephrology recommendations Renal ultrasound ordered IV fluids running Extensive autoimmune workup included SPEP, urine immunofixation, cryoglobulins, P and C Anca, FLO[employer] LIQUID, double-stranded DNA antibody, glomerular basement antibody, complement, ASO, anti DNase B has all been ordered and is pending this time will follow-up (2) Acute hyperkalemia: Code(s): E87.5 - Hyperkalemia Status: Acute Assessment and Plan: Significantly elevated potassium 6.3 on admission with some peaked T-waves on telemetry/EKG, now improved to 5.3 after 2 doses of Lokelma, calcium gluconate, sodium bicarbonate, insulin/dextrose. Additional dose of Lokelma ordered to further reduce potassium. Monitor potassium levels On standing Lokelma order per Nephrology Avoid agents that would increase potassium Likely to continue improving secondary to improvement of MILENA (3) Urinary tract infection: Code(s): N39.0 - Urinary tract infection, site not specified Status: Acute Assessment and Plan: UTI noted on urinalysis with patient having significant symptoms. UA has been collected and culture has been sent. Patient is started on ceftriaxone, no current risk factors to be concern for sepsis or need to escalate antibiotic at this time. 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: Code(s): I25.10 - Atherosclerotic heart disease of [place] coronary artery without angina pectoris Status: Acute Assessment and Plan: On aspirin, clopidogrel, atorvastatin, metoprolol Continue above, with renal dosing if needed (7) Colostomy in place: Code(s): Z93.3 - Colostomy status Status: Acute (8) Ileostomy in place: Code(s): Z93.2 - Ileostomy status Status: Acute (9) Hyperlipidemia: Code(s): E78.5 - Hyperlipidemia, unspecified Status: Acute Plan DVT prophylaxis Renal diabetic diet GI prophylaxis Subjective Date/time seen: 08/05/25 10:24 Interval history: This is a 70-year-old female patient who had been complaining about abdominal pain a week ago and had a CT scan at [facility]. She is currently staying at [facility] in [place] which he developed urinary symptoms. She stated that she had been dribbling and urinating frequently been only in small amounts. She has had no prior history of any chronic kidney disease. She is currently complaining of lower back pain from lying in the bed. The patient was sent to the emergency room for elevated BUN and creatinine with a urinary tract infection. She stated when she had her CT scan her labs were normal. Her H&H is 9.8 and 29.8 which is improved from her previous labs. Her sodium is 129 which appears to be her baseline. Potassium is 5.7. BUN is 87 creatinine 6.87. Her GFR is low at 67 with a previous value of 57 on a 10/26/2024. Her urine is turbid was 1+ blood, 3+ leukocyte esterase, greater than 100 wbc's, and 4+ bacteria. Chest/abdomen/pelvis CT today impression cholelithiasis, pelvic relaxation, no acute abnormality the chest abdomen or pelvis. She has fatty infiltration of the liver. She does have an ileostomy and a colostomy. The patient was started on IV fluids and ceftriaxone. She was given D50, insulin, calcium gluconate, Lokelma, and bicarb. Nephrology has been consulted. The patient is being admitted to inpatient status on the date of service of 08/03/2025. Review of Systems Constitutional: Constitutional: Reports as per HPI and Reports no additional constitutional complaints Eyes: Eyes: Reports as per HPI and Reports no additional eye complaints ENT: Reports system reviewed and no additional complaints, except as documented and Reports Normal hearing present Cardiovascular: Cardiovascular: Reports no additional cardiovascular complaints Respiratory: Respiratory: Reports as per HPI and Reports no additional respiratory complaints Gastrointestinal: Gastrointestinal: Reports as per HPI and Reports no additional gastrointestinal complaints Genitourinary: Genitourinary: Reports no additional female genitourinary complaints Musculoskeletal: Musculoskeletal: Reports no additional musculoskeletal complaints Integumentary/Breasts: Skin/Breast: Reports system reviewed and no additional complaints, except as docu Neurologic: Reports system reviewed and no additional complaints, except as documented and Reports Normal hearing present Psychiatric: Psychiatric: Reports no additional psychiatric complaints and Reports as per HPI Hematologic/Lymphatic: Hematologic/Lymphatic: Reports no additional hematologic/lymphatic complaints Allergic/Immunologic: Allergic/Immunologic: Reports no additional allergic/immunologic complaints Exam Const: General: cooperative, healthy appearing, comfortable, no acute distress, well developed, awake, Physically active, average body habitus and well nourished Nutritional Appearance: average body habitus and well nourished Orientation/consciousness: oriented to person, oriented to place, oriented to time and patient oriented x3 Limitations: no limitations HENMT: Head: normal to inspection, No palpable skull fracture present and normocephalic Eyes: General: appearance normal, both eyes and all related structures Alignment and Position: alignment normal Periorbital: periorbital findings normal Eyelids: eyelids normal EOM: EOMs intact bilaterally Neck: Neck: normal visual inspection, full ROM and no lymphadenopathy Chest: Chest palpation & inspection: normal inspection of the chest Resp: Effort & Inspection: normal respiratory effort Auscultation: clear to auscultation bilaterally Percussion: percussion normal Cardio: Palpation: normal PMI Rate: regular rate Rhythm: regular rhythm Heart sounds: S1 normal heart sound present and S2 normal heart sound present Peripheral pulses: Peripheral pulses 2+ throughout GI: Inspection: normal to inspection Auscultation: normal bowel sounds Other: Ileostomy and colostomy bag intact. 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 Neuro: General: oriented to person, oriented to place, oriented to time and patient oriented x3 Cranial nerves: Yes Normal hearing present Cognition (Neuro): normal cognition Speech: normal speech Motor exam (neuro): 5/5 motor strength present throughout Sensory Exam: normal sensation Extrem: General: normal to inspection Right upper extremity: normal to inspection and shoulder/upper arm Left upper extremity: normal to inspection and shoulder/upper arm Right lower extremity: foot Left lower extremity: normal to inspection Other: Previous history of 2nd right toe amputated Psych: Appearance: grossly normal Mental Status: mental status grossly normal Speech and movement: Normal speech and movement present Affect: normal affect Attitude: cooperative Objective Data Vital Signs Vital Signs: Vital Signs - 24 hr 08/04/25 12:00 08/04/25 12:00 08/04/25 16:00 Temperature 97.0 F L 97.9 F Pulse Rate 61 67 65 Respiratory Rate 17 20 Blood Pressure 115/39 L 134/36 L Pulse Oximetry 100 100 Oxygen Delivery 08/04/25 16:00 08/04/25 20:00 08/04/25 20:00 Temperature 97.6 F Pulse Rate 67 66 67 Respiratory Rate 16 Blood Pressure 117/41 L Pulse Oximetry 100 Oxygen Delivery 08/04/25 20:00 08/04/25 20:44 08/04/25 20:44 Temperature Pulse Rate 63 67 67 Respiratory Rate 16 Blood Pressure Pulse Oximetry 97 Oxygen Delivery Room Air 08/04/25 20:56 08/05/25 00:00 08/05/25 00:00 Temperature 97.6 F 97.7 F Pulse Rate 66 63 63 Respiratory Rate 16 16 Blood Pressure 117/41 L 120/46 L Pulse Oximetry 100 97 Oxygen Delivery 08/05/25 04:00 08/05/25 04:32 08/05/25 08:00 Temperature 97.8 F Pulse Rate 64 73 Respiratory Rate 22 H Blood Pressure 137/40 L Pulse Oximetry 97 Oxygen Delivery Room Air 08/05/25 08:00 08/05/25 08:00 08/05/25 08:17 Temperature 97.1 F L Pulse Rate 73 63 66 Respiratory Rate 14 Blood Pressure 106/58 L Pulse Oximetry 97 Oxygen Delivery 08/05/25 08:17 08/05/25 09:22 Temperature Pulse Rate 66 Respiratory Rate Blood Pressure Pulse Oximetry 97 Oxygen Delivery Room Air Intake/Output Intake/Output: Intake & Output 08/02/25 08/03/25 08/04/25 08/05/25 23:59 23:59 23:59 23:59 Intake Total 1050 2391 973 Output Total 3927 9202 Balance 3409 -0181 -107 Meds/Results Medications: Active Medications Generic Name Dose Route Start Last Admin Trade Name Freq PRN Reason Stop Dose Admin Acetaminophen 650 mg 08/04/25 00:46 08/04/25 01:25 Acetaminophen 325 Mg Tablet PO 650 mg Q6H PRN Administration Pain Amiodarone HCl 200 mg 08/04/25 09:00 08/05/25 08:17 Amiodarone Hcl 200 Mg Tablet PO 200 mg Q12HR [place] Administration Aspirin 81 mg 08/04/25 09:00 08/05/25 08:17 Aspirin 81 Mg Enteric Tablet PO 09/03/25 08:59 81 mg DAILY [place] Administration Calcium Polycarbophil 625 mg 08/04/25 09:00 08/05/25 08:18 Calcium Polycarbophil 625 Mg Tablet PO 625 mg DAILY [place] Administration Clopidogrel Bisulfate 75 mg 08/04/25 09:00 08/05/25 08:18 Clopidogrel Bisulfate 75 Mg Tablet PO 75 mg DAILY [place] Administration Dicyclomine HCl 10 mg 08/04/25 09:00 08/05/25 08:18 Dicyclomine Hcl 10 Mg Capsule PO 10 mg QID [place] Administration Diphenoxylate HCl/Atropine 2 tablet 08/04/25 00:46 Diphenoxylate/Atropine (*Crx) 2.5 Mg Tablet PO BID PRN Diarrhea Glucagon 1 mg 08/04/25 00:48 Glucagon For Inj 1 Mg Vial IM PRN PRN Hypoglycemia Protocol Glucose 15 gm 08/04/25 00:48 Glucose Oral Gel 15 Gm Of Glucse In 37.5 Gm Tube PO PRN PRN Hypoglycemia Protocol Ceftriaxone Sodium 1 gm/ 50 mls @ 100 mls/hr 08/04/25 22:00 08/04/25 21:01 Sodium Chloride IVPB 100 mls/hr Q24H [place] Administration Dextrose 1,000 mls @ 100 mls/hr 08/04/25 00:48 Dextrose 5% 1,000 Ml IVPB PRN PRN Hypoglycemia Protocol Sodium Chloride 1,000 mls @ 100 mls/hr 08/05/25 09:10 08/05/25 10:08 Normal Saline Iv IV CONT 100 mls/hr .Q10H [place] Administration Insulin Aspart 3 - 6 units 11/06/25 08:00 08/05/25 08:27 Insulin Aspart (*Bkc) 100 Units/Ml SUB-Q Not Given TIDWM [facility] Protocol Loratadine 10 mg 08/04/25 09:00 08/05/25 08:17 Loratadine 10 Mg Tablet PO 09/03/25 08:59 10 mg DAILY [place] Administration Metoprolol Succinate 50 mg 08/04/25 09:00 08/05/25 08:17 Metoprolol Succinate Ext Rel 50 Mg Tabcr PO 50 mg Q12HR [place] Administration Pantoprazole Sodium 20 mg 08/04/25 09:00 08/05/25 08:17 Pantoprazole Sod Sesquihydrate 20 Mg Tab PO 20 mg DAILY [place] Administration Rosuvastatin Calcium 10 mg 08/04/25 21:00 08/04/25 20:45 Rosuvastatin 10 Mg Tablet PO 10 mg HS [place] Administration Sertraline HCl 25 mg 08/04/25 09:00 08/05/25 08:17 Sertraline Hcl 25 Mg Tablet PO 25 mg DAILY [place] Administration Sodium Bicarbonate 650 mg 08/05/25 09:05 08/05/25 10:08 Sodium Bicarbonate Tab 650 Mg Tablet PO 650 mg BID [place] Administration Sodium Zirconium Cyclosilicate 10 gm 08/05/25 10:00 08/05/25 10:07 Sodium Zirconium Cyclosilicate 10 Gm Powd.Pack PO 10 gm BID@1000,1800 [place] Administration Sucralfate 1,000 mg 08/04/25 06:30 08/05/25 06:22 Sucralfate Susp 100 Mg/Ml 10 Ml Udc PO 1,000 mg ACHS [place] Administration Radiology Results: ITS Impressions Chest/Abdomen/Pelvis CT 08/03/25 21:34 IMPRESSION: 1. Cholelithiasis. 2: Pelvic relaxation. 3: No acute abnormality of the chest, abdomen or pelvis. Renal Ultrasound 08/04/25 11:51 IMPRESSION: 1. Mildly increased echotexture of the kidneys may represent underlying medical renal disease. 2. Limited evaluation of the urinary bladder. Chest X-Ray 08/05/25 09:33 IMPRESSION: 1. No focal acute process. Labs Labs: Laboratory Results - last 24 hr 08/04/25 08/04/25 08/04/25 05:07 11:42 16:23 WBC RBC Hgb Hct MCV MCH MCHC RDW Plt Count MPV Immature Gran % (Auto) Neut % (Auto) Lymph % (Auto) [place] % (Auto) Eos % (Auto) Baso % (Auto) Lymph # (Auto) [place] # (Auto) Eos # (Auto) Baso # (Auto) Abs Immat Gran (auto) Absolute Neuts (auto) Absolute Nucleated RBC Nucleated RBC % Sodium Potassium Chloride Carbon Dioxide Anion Gap BUN Creatinine Estim Creat Clear Calc Estimated GFR Glucose POC Capillary Glucose 243 H 301 H Calcium Phosphorus Total Bilirubin AST ALT Alkaline Phosphatase Total Protein Albumin FLO[employer] AND WALL [employer]PL[employer] LIQUID Antibodies <0.2 Double Strand DNA Ab <1 Anti-Streptolysin O Ab 37.7 08/04/25 08/04/25 08/05/25 19:34 20:54 05:31 WBC 6.7 RBC 2.52 L Hgb 7.7 L Hct 23.7 L MCV 94.0 MCH 30.6 MCHC 32.5 RDW 13.5 Plt Count 187 MPV 10.2 Immature Gran % (Auto) 0.4 Neut % (Auto) 64.3 Lymph % (Auto) 21.9 [place] % (Auto) 8.6 H Eos % (Auto) 4.2 Baso % (Auto) 0.6 Lymph # (Auto) 1.47 [place] # (Auto) 0.6 Eos # (Auto) 0.3 Baso # (Auto) 0.0 Abs Immat Gran (auto) 0.03 Absolute Neuts (auto) 4.3 Absolute Nucleated RBC 0.000 Nucleated RBC % 0.0 Sodium 128 L 129 L Potassium 5.4 H 5.1 H Chloride 102 105 Carbon Dioxide 18 L 16 L Anion Gap 8 8 BUN 73 H D 70 H Creatinine 4.86 H 4.14 H Estim Creat Clear Calc 9 10 Estimated GFR 9 L 11 L Glucose 218 H 193 H POC Capillary Glucose 230 H Calcium 7.8 L 7.9 L Phosphorus 6.2 H 4.9 H Total Bilirubin 0.3 AST 20 ALT 13 Alkaline Phosphatase 79 Total Protein 6.3 Albumin 3.5 3.1 L FLO[employer]ALL [employer] LIQUID Antibodies Double Strand DNA Ab Anti-Streptolysin O Ab 08/05/25 07:42 WBC RBC Hgb Hct MCV MCH MCHC RDW Plt Count MPV Immature Gran % (Auto) Neut % (Auto) Lymph % (Auto) [place] % (Auto) Eos % (Auto) Baso % (Auto) Lymph # (Auto) [place] # (Auto) Eos # (Auto) Baso # (Auto) Abs Immat Gran (auto) Absolute Neuts (auto) Absolute Nucleated RBC Nucleated RBC % Sodium Potassium Chloride Carbon Dioxide Anion Gap BUN Creatinine Estim Creat Clear Calc Estimated GFR Glucose POC Capillary Glucose 198 H Calcium Phosphorus Total Bilirubin AST ALT Alkaline Phosphatase Total Protein Albumin [employer] LIQUID Antibodies Double Strand DNA Ab Anti-Streptolysin O Ab Hospitalist MIPS Advance Care Plan I have confirmed that the patient's Advanced Care Plan is present, code status is documented, or surrogate decision maker is listed in patient medical record.: Yes Medication Reconciliation I have utilized all available resources to obtain, update and review the patients current medications (includes all prescriptions, OTC, herbals, cannabis, and nutritional supplements).: Yes
[2025-08-05 11:08] LABS: Chloride, Urine 21 mmol/L (Not Estab.)
[2025-08-05 12:12] LABS: Anion Gap 10 mmol/L (4-12); Blood Urea Nitrogen 64 mg/dL (7-17); Calcium 8.0 mg/dL (8.4-10.2); Carbon Dioxide 18 mmol/L (22-30); Chloride 103 mmol/L (98-107); Estimated CRCL calculation 11 ml/min; Estimated Glomerular Filt Rate 12; Glucose 231 mg/dL (65-110); Potassium 5.0 mmol/L (3.4-5.0); Sodium 131 mmol/L (137-145)
[2025-08-05] MEDS: INSULIN ASPART (*BKC) 100 UNITS/ML SUB-Q ×2 (12:32→17:39)
[2025-08-05 16:08] LABS: ANA by IFA Rfx Titer/Pattern Negative (.)
[2025-08-05] MEDS: cefTRIAXone 1 GM in SODIUM CHLORIDE 0.9% IV 50 ML 100 ML IVPB (21:21)
[2025-08-05] MEDS: ROSUVASTATIN 10 MG TABLET PO (21:22)
[2025-08-06] VITALS (11 sets, daily range): BP systolic 130–163; BP diastolic 36–44; PULSE 54–66; RESP 14–18; TEMP 35.7–36.5; O2SAT 97–100
[2025-08-06] MEDS: SUCRALFATE SUSP 100 MG/ML 10 ML UDC 1000 MG PO ×4 (05:42→21:34)
[2025-08-06 06:05] LABS: Hematocrit 24.6 % (37.0-47.0); Hemoglobin 7.9 g/dL (12.0-15.0); Immature Granulocyte Percent A 0.4 % (0-0.5); Lymphocytes Absolute Auto 1.88 K/mm3 (0.9-3.2); Mean Corpuscular HGB Conc 32.1 g/dl (32-36); Mean Corpuscular Hemoglobin 30.7 pg (26-34); Mean Corpuscular Volume 95.7 fl (80-100); Nucleated Red Blood Cells Absolute Auto 0.000 K/mm3 (0.0-0.012); Nucleated Red Blood Cells Perc 0.0 % (0.0-0.2); Platelet Count Result 182 k/mm3 (150-375); Red Blood Count 2.57 M/mm3 (4.2-5.4); White Blood Count 6.9 K/mm3 (4.5-10.0)
[2025-08-06 06:36] LABS: Alanine Aminotransferase 12 U/L (6-35); Albumin Level 3.2 g/dL (3.5-5.1); Alkaline Phosphatase 77 U/L (38-126); Anion Gap 5 mmol/L (4-12); Aspartate Amino Transferase 17 U/L (14-36); Bilirubin,Total 0.3 mg/dL (0.2-1.3); Blood Urea Nitrogen 51 mg/dL (7-17); Calcium 8.0 mg/dL (8.4-10.2); Carbon Dioxide 19 mmol/L (22-30); Chloride 111 mmol/L (98-107); Estimated CRCL calculation 15 ml/min; Estimated Glomerular Filt Rate 17; Glucose 182 mg/dL (65-110); Potassium 4.9 mmol/L (3.4-5.0); Sodium 135 mmol/L (137-145); Total Protein 6.3 g/dL (6.3-8.2)
[2025-08-06] MEDS: METOPROLOL SUCCINATE EXT REL 50 MG TABCR PO ×2 (08:14→21:34)
[2025-08-06] MEDS: ASPIRIN 81 MG ENTERIC TABLET PO (08:15)
[2025-08-06] MEDS: PANTOPRAZOLE SOD SESQUIHYDRATE 20 MG TAB PO (08:15)
[2025-08-06] MEDS: AMIODARONE HCL 200 MG TABLET PO ×2 (08:15→21:34)
[2025-08-06] MEDS: LORATADINE 10 MG TABLET PO (08:15)
[2025-08-06] MEDS: DICYCLOMINE HCL 10 MG CAPSULE PO ×4 (08:15→21:34)
[2025-08-06] MEDS: SODIUM BICARBONATE TAB 650 MG TABLET PO ×2 (08:15→16:36)
[2025-08-06] MEDS: SERTRALINE HCL 25 MG TABLET PO (08:15)
[2025-08-06] MEDS: CLOPIDOGREL BISULFATE 75 MG TABLET PO (08:15)
[2025-08-06] MEDS: SODIUM CHLORIDE 0.9% IV 1,000 ML 50 ML IV CONT (09:20)
[2025-08-06] MEDS: SODIUM ZIRCONIUM CYCLOSILICATE 10 GM POWD.PACK PO ×2 (10:40→18:33)
--- NOTE | 2025-08-06 11:30 | P.PNIM_ITS ---
Progress Note: A&P Assessment and Plan (1) Acute kidney injury: Code(s): N17.9 - Acute kidney failure, unspecified Status: Acute Assessment and Plan: Came in with significantly elevated BUN/creatinine of 87/6.87, creatinine now improving to 6.19. No prior history of CKD or ESRD. Patient was significantly dehydrated with significant UTI as well. These are likely contributing factors to MILENA. Nephrology has been consulted. Cr 7.94>>2.72 today Continue monitoring renal function Avoid nephrotoxic agents Renal dosing of drugs Await Nephrology recommendations Renal ultrasound ordered IV fluids running - reduced NS from 100 cc/hr to 50 cc/hr as patient continues to improve and is eating and hydrating well orally. Extensive autoimmune workup included SPEP, urine immunofixation, cryoglobulins, P and C An[place], [employer], double-stranded DNA antibody, glomerular basement antibody, complement, ASO, anti DNase B has all been ordered and is pending this time will follow-up (2) Acute hyperkalemia: Code(s): E87.5 - Hyperkalemia Status: Acute Assessment and Plan: Significantly elevated potassium 6.3 on admission with some peaked T-waves on telemetry/EKG, now improved to 5.3 after 2 doses of Lokelma, calcium gluconate, sodium bicarbonate, insulin/dextrose. Additional dose of Lokelma ordered to further reduce potassium. Monitor potassium levels On standing Lokelma order per Nephrology Avoid agents that would increase potassium Likely to continue improving secondary to improvement of MILENA (3) Urinary tract infection: Code(s): N39.0 - Urinary tract infection, site not specified Status: Acute Assessment and Plan: UTI noted on urinalysis with patient having significant symptoms. UA has been collected and culture has been sent. Patient is started on ceftriaxone, no current risk factors to be concern for sepsis or need to escalate antibiotic at this time. Continue ceftriaxone Follow urine culture (4) Acute hyponatremia: Code(s): E87.1 - Hypo-osmolality and hyponatremia Status: Acute Assessment and Plan: Sodium 129, review of prior labs from prior hospitalizations shows the patient seems to manage slightly low sodium level. Now improved to 135. Continue monitoring sodium (5) Insulin dependent type 2 diabetes mellitus: Code(s): E11.9 - Type 2 diabetes mellitus without complications; Z79.4 - terminal carman (current) use of insulin Status: Chronic Assessment and Plan: On insulin at home Continue insulin and sliding scale Diabetic diet (6) Atherosclerotic heart disease of [place] coronary artery without angina pectoris: Code(s): I25.10 - Atherosclerotic heart disease of [place] coronary artery without angina pectoris Status: Acute Assessment and Plan: On aspirin, clopidogrel, atorvastatin, metoprolol Continue above, with renal dosing if needed (7) Colostomy in place: Code(s): Z93.3 - Colostomy status Status: Acute Assessment and Plan: Patient is scheduled for colonoscopy with GI and getting colostomy/ileostomy removed. (8) Ileostomy in place: Code(s): Z93.2 - Ileostomy status Status: Acute Assessment and Plan: Patient is scheduled for colonoscopy with GI and getting colostomy/ileostomy removed. (9) Hyperlipidemia: Code(s): E78.5 - Hyperlipidemia, unspecified Status: Acute Plan DVT prophylaxis Renal diabetic diet GI prophylaxis Continue to follow nephrology recommendations and monitor improving renal function Likely can transition to oral antibiotics on discharge if needed. Subjective Date/time seen: 08/06/25 11:30 Interval history: This is a 70-year-old female patient who had been complaining about abdominal pain a week ago and had a CT scan at [facility]. She is currently staying at [facility] in [place] which he developed urinary symptoms. She stated that she had been dribbling and urinating frequently been only in small amounts. She has had no prior history of any chronic kidney disease. She is currently complaining of lower back pain from lying in the bed. The patient was sent to the emergency room for elevated BUN and creatinine with a urinary tract infection. She stated when she had her CT scan her labs were normal. Her H&H is 9.8 and 29.8 which is improved from her previous labs. Her sodium is 129 which appears to be her baseline. Potassium is 5.7. BUN is 87 creatinine 6.87. Her GFR is low at 67 with a previous value of 57 on a 10/26/2024. Her urine is turbid was 1+ blood, 3+ leukocyte esterase, greater than 100 wbc's, and 4+ bacteria. Chest/abdomen/pelvis CT today impression cholelithiasis, pelvic relaxation, no acute abnormality the chest abdomen or pelvis. She has fatty infiltration of the liver. She does have an ileostomy and a colostomy. The patient was started on IV fluids and ceftriaxone. She was given D50, insulin, calcium gluconate, Lokelma, and bicarb. Nephrology has been consulted. The patient is being admitted to inpatient status on the date of service of 08/03/2025. Review of Systems Constitutional: Constitutional: Reports as per HPI and Reports no additional constitutional complaints Eyes: Eyes: Reports as per HPI and Reports no additional eye complaints ENT: Reports system reviewed and no additional complaints, except as documented and Reports Normal hearing present Cardiovascular: Cardiovascular: Reports no additional cardiovascular complaints Respiratory: Respiratory: Reports as per HPI and Reports no additional respiratory complaints Gastrointestinal: Gastrointestinal: Reports as per HPI and Reports no additional gastrointestinal complaints Genitourinary: Genitourinary: Reports no additional female genitourinary complaints Musculoskeletal: Musculoskeletal: Reports no additional musculoskeletal complaints Integumentary/Breasts: Skin/Breast: Reports system reviewed and no additional complaints, except as docu Neurologic: Reports system reviewed and no additional complaints, except as documented and Reports Normal hearing present Psychiatric: Psychiatric: Reports no additional psychiatric complaints and Reports as per HPI Hematologic/Lymphatic: Hematologic/Lymphatic: Reports no additional hematologic/lymphatic complaints Allergic/Immunologic: Allergic/Immunologic: Reports no additional allergic/immunologic complaints Exam Const: General: cooperative, healthy appearing, comfortable, no acute distress, well developed, awake, Physically active, average body habitus and well nourished Nutritional Appearance: average body habitus and well nourished Orientation/consciousness: oriented to person, oriented to place, oriented to time and patient oriented x3 Limitations: no limitations HENMT: Head: normal to inspection, No palpable skull fracture present and normocephalic Eyes: General: appearance normal, both eyes and all related structures Alignment and Position: alignment normal Periorbital: periorbital findings normal Eyelids: eyelids normal EOM: EOMs intact bilaterally Neck: Neck: normal visual inspection, full ROM and no lymphadenopathy Chest: Chest palpation & inspection: normal inspection of the chest Resp: Effort & Inspection: normal respiratory effort Auscultation: clear to auscultation bilaterally Percussion: percussion normal Cardio: Palpation: normal PMI Rate: regular rate Rhythm: regular rhythm Heart sounds: S1 normal heart sound present and S2 normal heart sound present Peripheral pulses: Peripheral pulses 2+ throughout GI: Inspection: normal to inspection Auscultation: normal bowel sounds Other: Ileostomy and colostomy bag intact. 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 Neuro: General: oriented to person, oriented to place, oriented to time and patient oriented x3 Cranial nerves: Yes Normal hearing present Cognition (Neuro): normal cognition Speech: normal speech Motor exam (neuro): 5/5 motor strength present throughout Sensory Exam: normal sensation Extrem: General: normal to inspection Right upper extremity: normal to inspection and shoulder/upper arm Left upper extremity: normal to inspection and shoulder/upper arm Right lower extremity: foot Left lower extremity: normal to inspection Other: Previous history of 2nd right toe amputated Psych: Appearance: grossly normal Mental Status: mental status grossly normal Speech and movement: Normal speech and movement present Affect: normal affect Attitude: cooperative Objective Data Vital Signs Vital Signs: Vital Signs - 24 hr 08/05/25 12:00 08/05/25 12:00 08/05/25 16:00 Temperature 97.3 F L 97.2 F L Pulse Rate 57 L 57 L 62 Respiratory Rate 16 18 Blood Pressure 127/47 L 149/54 H Pulse Oximetry 100 100 Oxygen Delivery 08/05/25 16:00 08/05/25 20:00 08/05/25 20:00 Temperature 97.4 F L Pulse Rate 65 67 67 Respiratory Rate 16 16 Blood Pressure 140/40 L Pulse Oximetry 98 98 Oxygen Delivery Room Air 08/05/25 20:00 08/05/25 21:21 08/05/25 21:22 Temperature Pulse Rate 66 67 67 Respiratory Rate Blood Pressure Pulse Oximetry Oxygen Delivery 08/05/25 21:37 08/06/25 00:00 08/06/25 04:00 Temperature 97.4 F L Pulse Rate 67 66 60 Respiratory Rate 16 Blood Pressure 140/40 L Pulse Oximetry 98 Oxygen Delivery 08/06/25 04:00 08/06/25 05:44 08/06/25 08:00 Temperature 97.7 F 97.7 F 96.3 F L Pulse Rate 59 L 59 L 58 L Respiratory Rate 16 16 14 Blood Pressure 130/40 L 130/40 L 133/44 L Pulse Oximetry 97 97 100 Oxygen Delivery 08/06/25 08:00 08/06/25 08:00 08/06/25 08:14 Temperature Pulse Rate 56 L 58 L Respiratory Rate Blood Pressure Pulse Oximetry Oxygen Delivery Room Air 08/06/25 08:15 Temperature Pulse Rate 58 L Respiratory Rate Blood Pressure Pulse Oximetry Oxygen Delivery Intake/Output Intake/Output: Intake & Output 08/03/25 08/04/25 08/05/25 08/06/25 23:59 23:59 23:59 23:59 Intake Total 1050 2070 3310 1790 Output Total 3675 2700 2100 Balance 1050 1605 610 -310 Meds/Results Medications: Active Medications Generic Name Dose Route Start Last Admin Trade Name Freq PRN Reason Stop Dose Admin Acetaminophen 650 mg 08/04/25 00:46 08/04/25 01:25 Acetaminophen 325 Mg Tablet PO 650 mg Q6H PRN Administration Pain Amiodarone HCl 200 mg 08/04/25 09:00 08/06/25 08:15 Amiodarone Hcl 200 Mg Tablet PO 200 mg Q12HR [place] Administration Aspirin 81 mg 08/04/25 09:00 08/06/25 08:15 Aspirin 81 Mg Enteric Tablet PO 09/03/25 08:59 81 mg DAILY [place] Administration Calcium Polycarbophil 625 mg 08/04/25 09:00 08/06/25 08:14 Calcium Polycarbophil 625 Mg Tablet PO 625 mg DAILY [place] Administration Clopidogrel Bisulfate 75 mg 08/04/25 09:00 08/06/25 08:15 Clopidogrel Bisulfate 75 Mg Tablet PO 75 mg DAILY [place] Administration Dicyclomine HCl 10 mg 08/04/25 09:00 08/06/25 08:15 Dicyclomine Hcl 10 Mg Capsule PO 10 mg QID [place] Administration Diphenoxylate HCl/Atropine 2 tablet 08/04/25 00:46 Diphenoxylate/Atropine (*Crx) 2.5 Mg Tablet PO BID PRN Diarrhea Glucagon 1 mg 08/04/25 00:48 Glucagon For Inj 1 Mg Vial IM PRN PRN Hypoglycemia Protocol Glucose 15 gm 08/04/25 00:48 Glucose Oral Gel 15 Gm Of Glucse In 37.5 Gm Tube PO PRN PRN Hypoglycemia Protocol Ceftriaxone Sodium 1 gm/ 50 mls @ 100 mls/hr 08/04/25 22:00 08/05/25 21:21 Sodium Chloride IVPB 100 mls/hr Q24H [place] Administration Dextrose 1,000 mls @ 100 mls/hr 08/04/25 00:48 Dextrose 5% 1,000 Ml IVPB PRN PRN Hypoglycemia Protocol Sodium Chloride 1,000 mls @ 50 mls/hr 08/05/25 09:10 08/06/25 09:20 Normal Saline Iv IV CONT 50 mls/hr .Q20H [place] Administration Insulin Aspart 3 - 6 units 08/04/25 08:00 08/06/25 09:20 Insulin Aspart (*Bkc) 100 Units/Ml SUB-Q Not Given TIDWM [place] Protocol Loratadine 10 mg 08/04/25 09:00 08/06/25 08:15 Loratadine 10 Mg Tablet PO 09/03/25 08:59 10 mg DAILY PHOENXI Administration Metoprolol Succinate 50 mg 08/04/25 09:00 08/06/25 08:14 Metoprolol Succinate Ext Rel 50 Mg Tabcr PO 50 mg Q12HR [place] Administration Pantoprazole Sodium 20 mg 08/04/25 09:00 08/06/25 08:15 Pantoprazole Sod Sesquihydrate 20 Mg Tab PO 20 mg DAILY [place] Administration Rosuvastatin Calcium 10 mg 08/04/25 21:00 08/05/25 21:22 Rosuvastatin 10 Mg Tablet PO 10 mg HS [place] Administration Sertraline HCl 25 mg 08/04/25 09:00 08/06/25 08:15 Sertraline Hcl 25 Mg Tablet PO 25 mg DAILY [place] Administration Sodium Bicarbonate 650 mg 08/05/25 09:05 08/06/25 08:15 Sodium Bicarbonate Tab 650 Mg Tablet PO 650 mg BID [place] Administration Sodium Zirconium Cyclosilicate 10 gm 08/05/25 10:00 08/06/25 10:40 Sodium Zirconium Cyclosilicate 10 Gm Powd.Pack PO 10 gm BID@1000,1800 [place] Administration Sucralfate 1,000 mg 08/04/25 06:30 08/06/25 10:40 Sucralfate Susp 100 Mg/Ml 10 Ml Udc PO 1,000 mg ACHS [place] Administration Radiology Results: ITS Impressions Chest/Abdomen/Pelvis CT 08/03/25 21:34 IMPRESSION: 1. Cholelithiasis. 2: Pelvic relaxation. 3: No acute abnormality of the chest, abdomen or pelvis. Renal Ultrasound 08/04/25 11:51 IMPRESSION: 1. Mildly increased echotexture of the kidneys may represent underlying medical renal disease. 2. Limited evaluation of the urinary bladder. Chest X-Ray 08/05/25 09:33 IMPRESSION: 1. No focal acute process. Labs Labs: Laboratory Results - last 24 hr 08/04/25 08/04/25 08/05/25 04:26 05:07 11:37 WBC RBC Hgb Hct MCV MCH MCHC RDW Plt Count MPV Immature Gran % (Auto) Neut % (Auto) Lymph % (Auto) [place] % (Auto) Eos % (Auto) Baso % (Auto) Lymph # (Auto) [place] # (Auto) Eos # (Auto) Baso # (Auto) Abs Immat Gran (auto) Absolute Neuts (auto) Absolute Nucleated RBC Nucleated RBC % Sodium Potassium Chloride Carbon Dioxide Anion Gap BUN Creatinine Estim Creat Clear Calc Estimated GFR Glucose POC Capillary Glucose 263 H Calcium Phosphorus Total Bilirubin AST ALT Alkaline Phosphatase Total Protein Albumin Ur Random Creatinine Cancelled U Random Total Protein Cancelled Protein/Creatinin Ratio Cancelled Urine Albumin Cancelled U Stfoo-3-Cbvehawp Cancelled U Vilww-3-Rmjwsxey Cancelled U Beta Globulin Cancelled U Gamma Globulin Cancelled U Abnormal Prot Band 1 Cancelled U Abnormal Prot Band 2 Cancelled U Abnormal Prot Band 3 Cancelled Urine PEP Interpret Cancelled MARLON Screen Negative c-ANCA Antibody <1:20 Atypical p-ANCA <1:20 p-ANCA Antibody <1:20 Tot Complement (CH50) >60 08/05/25 08/05/25 08/05/25 11:49 16:25 19:42 WBC RBC Hgb Hct MCV MCH MCHC RDW Plt Count MPV Immature Gran % (Auto) Neut % (Auto) Lymph % (Auto) [place] % (Auto) Eos % (Auto) Baso % (Auto) Lymph # (Auto) [place] # (Auto) Eos # (Auto) Baso # (Auto) Abs Immat Gran (auto) Absolute Neuts (auto) Absolute Nucleated RBC Nucleated RBC % Sodium 131 L Potassium 5.0 Chloride 103 Carbon Dioxide 18 L Anion Gap 10 BUN 64 H Creatinine 3.76 H Estim Creat Clear Calc 11 Estimated GFR 12 L Glucose 231 H POC Capillary Glucose 250 H 280 H Calcium 8.0 L Phosphorus Total Bilirubin AST ALT Alkaline Phosphatase Total Protein Albumin Ur Random Creatinine U Random Total Protein Protein/Creatinin Ratio Urine Albumin U [id number]-1-Yctxgljr U Rwwsm-5-Dgzlracy U Beta Globulin U Gamma Globulin U Abnormal Prot Band 1 U Abnormal Prot Band 2 U Abnormal Prot Band 3 Urine PEP Interpret MARLON Screen c-ANCA Antibody Atypical p-ANCA p-ANCA Antibody Tot Complement (CH50) 08/06/25 08/06/25 05:41 07:43 WBC 6.9 RBC 2.57 L Hgb 7.9 L Hct 24.6 L MCV 95.7 MCH 30.7 MCHC 32.1 RDW 13.5 Plt Count 182 MPV 9.9 Immature Gran % (Auto) 0.4 Neut % (Auto) 58.7 Lymph % (Auto) 27.4 [place] % (Auto) 8.2 Eos % (Auto) 4.7 H Baso % (Auto) 0.6 Lymph # (Auto) 1.88 [place] # (Auto) 0.6 Eos # (Auto) 0.3 Baso # (Auto) 0.0 Abs Immat Gran (auto) 0.03 Absolute Neuts (auto) 4.0 Absolute Nucleated RBC 0.000 Nucleated RBC % 0.0 Sodium 135 L Potassium 4.9 Chloride 111 H Carbon Dioxide 19 L Anion Gap 5 BUN 51 H D Creatinine 2.72 H Estim Creat Clear Calc 15 Estimated GFR 17 L Glucose 182 H POC Capillary Glucose 173 H Calcium 8.0 L Phosphorus 4.1 Total Bilirubin 0.3 AST 17 ALT 12 Alkaline Phosphatase 77 Total Protein 6.3 Albumin 3.2 L Ur Random Creatinine U Random Total Protein Protein/Creatinin Ratio Urine Albumin U Jngfy-7-[place] U Qbizl-9-Mciiaznj U Beta Globulin U Gamma Globulin U Abnormal Prot Band 1 U Abnormal Prot Band 2 U Abnormal Prot Band 3 Urine PEP Interpret MARLON Screen c-ANCA Antibody Atypical p-ANCA p-ANCA Antibody Tot Complement (CH50) Hospitalist MIPS Advance Care Plan I have confirmed that the patient's Advanced Care Plan is present, code status is documented, or surrogate decision maker is listed in patient medical record.: Yes Medication Reconciliation I have utilized all available resources to obtain, update and review the patients current medications (includes all prescriptions, OTC, herbals, cannabis, and nutritional supplements).: Yes
--- NOTE | 2025-08-06 11:50 | P.PNNP_ITS ---
Progress Note: A&P Assessment and Plan (1) Acute kidney injury: Code(s): N17.9 - Acute kidney failure, unspecified Status: Acute Assessment and Plan: * as noted by admission labs (creatinine 7.94mg/dl) * normal creatinine at baseline (by September 2024 discharge labs from here) * however, may have some underlying CKD based on outpatient labs: * creatinine 1.19mg/dl in late September 2024 * creatinine 1.37,g/dl in October 2024 * creatinine 1.7mg/dl in April 2025 * suspect multifactorial etiology: * prerenal factors * ARB use prior to admission * infection (UTI) * contrast exposure (with CT scan on 07/29/25) * other(?) * evaluation to date noted: * CT imaging with obstruction * renal u/s without obstruction (but evidence of medical renal disease) * urine electrolytes prerenal * urine eosinophils rare - possibly due to UTI * moderate proteinuria * CPK normal * ESR elevated (chronically elevated since September 2024) * CRP normal * extensive serologies pending * Patient still getting IV fluids. * Her creatinine has come down from over 7 to current level of 2.72. * Will continue the fluids * Check another lab tomorrow (2) Acute hyperkalemia: Code(s): E87.5 - Hyperkalemia Status: Acute Assessment and Plan: * Resolved (3) Hyponatremia: Code(s): E87.1 - Hypo-osmolality and hyponatremia Status: Chronic Assessment and Plan: * somewhat of a chronic issue * baseline sodium runs ~ 126 - 136mmol/L in the last year * admission sodium 129mmol/L * suspect partly due to MILENA and associated volume depletion * Sodium improved. Today it is 135. (4) Metabolic acidosis: Code(s): E87.20 - Acidosis, unspecified Status: Acute Assessment and Plan: * due to MILENA/ARF * Currently getting oral sodium bicarbonate * CO2 level is up to 19 * wean off as tolerated after the bicarbonate level improved (5) Urinary tract infection: Code(s): N39.0 - Urinary tract infection, site not specified Status: Acute Assessment and Plan: * suggested by admission * some clinical symptoms noted as well * follow urine culture results * on ceftriaxone (6) Anemia: Code(s): D64.9 - Anemia, unspecified Status: Chronic Assessment and Plan: * chronic issues as well * Hemoglobin bouncing her around in the vicinity of 8.0. 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 Subjective Date/time seen: 08/06/25 11:50 Interval history: Alert. Sitting up in a chair. No chest pain or shortness of breath Exam Narrative: General: elderly but WD/WN female in NAD Heart: normal S1 and S2; no rub or gallop Lungs: clear to auscultation Abdomen: soft, nontender, nondistended, positive bowel sounds; + ileostomy and colostomy Extremities: no edema Skin: warm and dry without rash Objective Data Vital Signs Vital Signs: Vital Signs - 24 hr 08/05/25 12:00 08/05/25 12:00 08/05/25 16:00 Temperature 97.3 F L 97.2 F L Pulse Rate 57 L 57 L 62 Respiratory Rate 16 18 Blood Pressure 127/47 L 149/54 H Pulse Oximetry 100 100 Oxygen Delivery 08/05/25 16:00 08/05/25 20:00 08/05/25 20:00 Temperature 97.4 F L Pulse Rate 65 67 67 Respiratory Rate 16 16 Blood Pressure 140/40 L Pulse Oximetry 98 98 Oxygen Delivery Room Air 08/05/25 20:00 08/05/25 21:21 08/05/25 21:22 Temperature Pulse Rate 66 67 67 Respiratory Rate Blood Pressure Pulse Oximetry Oxygen Delivery 08/05/25 21:37 08/06/25 00:00 08/06/25 04:00 Temperature 97.4 F L Pulse Rate 67 66 60 Respiratory Rate 16 Blood Pressure 140/40 L Pulse Oximetry 98 Oxygen Delivery 08/06/25 04:00 08/06/25 05:44 08/06/25 08:00 Temperature 97.7 F 97.7 F 96.3 F L Pulse Rate 59 L 59 L 58 L Respiratory Rate 16 16 14 Blood Pressure 130/40 L 130/40 L 133/44 L Pulse Oximetry 97 97 100 Oxygen Delivery 08/06/25 08:00 08/06/25 08:00 08/06/25 08:14 Temperature Pulse Rate 56 L 58 L Respiratory Rate Blood Pressure Pulse Oximetry Oxygen Delivery Room Air 08/06/25 08:15 Temperature Pulse Rate 58 L Respiratory Rate Blood Pressure Pulse Oximetry Oxygen Delivery Intake/Output Intake/Output: Intake & Output 08/03/25 08/04/25 08/05/25 08/06/25 23:59 23:59 23:59 23:59 Intake Total 1050 2070 3310 1790 Output Total 3675 2700 2340 Balance 1050 -1605 610 -550 Meds/Results Medications: Active Medications Generic Name Dose Route Start Last Admin Trade Name Sharathq PRN Reason Stop Dose Admin Acetaminophen 650 mg 08/04/25 00:46 08/04/25 01:25 Acetaminophen 325 Mg Tablet PO 650 mg Q6H PRN Administration Pain Amiodarone HCl 200 mg 08/04/25 09:00 08/06/25 08:15 Amiodarone Hcl 200 Mg Tablet PO 200 mg Q12HR [place] Administration Aspirin 81 mg 08/04/25 09:00 08/06/25 08:15 Aspirin 81 Mg Enteric Tablet PO 09/03/25 08:59 81 mg DAILY [place] Administration Calcium Polycarbophil 625 mg 08/04/25 09:00 08/06/25 08:14 Calcium Polycarbophil 625 Mg Tablet PO 625 mg DAILY [place] Administration Clopidogrel Bisulfate 75 mg 08/04/25 09:00 08/06/25 08:15 Clopidogrel Bisulfate 75 Mg Tablet PO 75 mg DAILY [place] Administration Dicyclomine HCl 10 mg 08/04/25 09:00 08/06/25 08:15 Dicyclomine Hcl 10 Mg Capsule PO 10 mg QID [place] Administration Diphenoxylate HCl/Atropine 2 tablet 08/04/25 00:46 Diphenoxylate/Atropine (*Crx) 2.5 Mg Tablet PO BID PRN Diarrhea Glucagon 1 mg 08/04/25 00:48 Glucagon For Inj 1 Mg Vial IM PRN PRN Hypoglycemia Protocol Glucose 15 gm 08/04/25 00:48 Glucose Oral Gel 15 Gm Of Glucse In 37.5 Gm Tube PO PRN PRN Hypoglycemia Protocol Ceftriaxone Sodium 1 gm/ 50 mls @ 100 mls/hr 08/04/25 22:00 08/05/25 21:21 Sodium Chloride IVPB 100 mls/hr Q24H [place] Administration Dextrose 1,000 mls @ 100 mls/hr 08/04/25 00:48 Dextrose 5% 1,000 Ml IVPB PRN PRN Hypoglycemia Protocol Sodium Chloride 1,000 mls @ 50 mls/hr 08/05/25 09:10 08/06/25 09:20 Normal Saline Iv IV CONT 50 mls/hr .Q20H [place] Administration Insulin Aspart 3 - 6 units 08/04/25 08:00 08/06/25 09:20 Insulin Aspart (*Bkc) 100 Units/Ml SUB-Q Not Given TIDWM [place] Protocol Loratadine 10 mg 08/04/25 09:00 08/06/25 08:15 Loratadine 10 Mg Tablet PO 09/03/25 08:59 10 mg DAILY [place] Administration Metoprolol Succinate 50 mg 08/04/25 09:00 08/06/25 08:14 Metoprolol Succinate Ext Rel 50 Mg Tabcr PO 50 mg Q12HR [place] Administration Pantoprazole Sodium 20 mg 08/04/25 09:00 08/06/25 08:15 Pantoprazole Sod Sesquihydrate 20 Mg Tab PO 20 mg DAILY [place] Administration Rosuvastatin Calcium 10 mg 08/04/25 21:00 08/05/25 21:22 Rosuvastatin 10 Mg Tablet PO 10 mg HS [facility] Administration Sertraline HCl 25 mg 08/04/25 09:00 08/06/25 08:15 Sertraline Hcl 25 Mg Tablet PO 25 mg DAILY [place] Administration Sodium Bicarbonate 650 mg 08/05/25 09:05 08/06/25 08:15 Sodium Bicarbonate Tab 650 Mg Tablet PO 650 mg BID [place] Administration Sodium Zirconium Cyclosilicate 10 gm 08/05/25 10:00 08/06/25 10:40 Sodium Zirconium Cyclosilicate 10 Gm Powd.Pack PO 10 gm BID@1000,1800 [place] Administration Sucralfate 1,000 mg 08/04/25 06:30 08/06/25 10:40 Sucralfate Susp 100 Mg/Ml 10 Ml Udc PO 1,000 mg ACHS [place] Administration Radiology Results: ITS Impressions Chest/Abdomen/Pelvis CT 08/03/25 21:34 IMPRESSION: 1. Cholelithiasis. 2: Pelvic relaxation. 3: No acute abnormality of the chest, abdomen or pelvis. Renal Ultrasound 08/04/25 11:51 IMPRESSION: 1. Mildly increased echotexture of the kidneys may represent underlying medical renal disease. 2. Limited evaluation of the urinary bladder. Chest X-Ray 08/05/25 09:33 IMPRESSION: 1. No focal acute process. Labs Labs: Laboratory Results - last 24 hr 08/04/25 08/04/25 08/05/25 04:26 05:07 11:49 WBC RBC Hgb Hct MCV MCH MCHC RDW Plt Count MPV Immature Gran % (Auto) Neut % (Auto) Lymph % (Auto) [place] % (Auto) Eos % (Auto) Baso % (Auto) Lymph # (Auto) [place] # (Auto) Eos # (Auto) Baso # (Auto) Abs Immat Gran (auto) Absolute Neuts (auto) Absolute Nucleated RBC Nucleated RBC % Sodium 131 L Potassium 5.0 Chloride 103 Carbon Dioxide 18 L Anion Gap 10 BUN 64 H Creatinine 3.76 H Estim Creat Clear Calc 11 Estimated GFR 12 L Glucose 231 H POC Capillary Glucose Calcium 8.0 L Phosphorus Total Bilirubin AST ALT Alkaline Phosphatase Total Protein Albumin Ur Random Creatinine Cancelled U Random Total Protein Cancelled Protein/Creatinin Ratio Cancelled Urine Albumin Cancelled U Xucgo-5-Crqfvjgx Cancelled U Jkxkg-5-Wrkucbib Cancelled U Beta Globulin Cancelled U Gamma Globulin Cancelled U Abnormal Prot Band 1 Cancelled U Abnormal Prot Band 2 Cancelled U Abnormal Prot Band 3 Cancelled Urine PEP Interpret Cancelled [place] Screen Negative c-ANCA Antibody <1:20 Atypical p-ANCA <1:20 p-ANCA Antibody <1:20 Tot Complement (CH50) >60 08/05/25 08/05/25 08/06/25 16:25 19:42 05:41 WBC 6.9 RBC 2.57 L Hgb 7.9 L Hct 24.6 L MCV 95.7 MCH 30.7 MCHC 32.1 RDW 13.5 Plt Count 182 MPV 9.9 Immature Gran % (Auto) 0.4 Neut % (Auto) 58.7 Lymph % (Auto) 27.4 [place] % (Auto) 8.2 Eos % (Auto) 4.7 H Baso % (Auto) 0.6 Lymph # (Auto) 1.88 [place] # (Auto) 0.6 Eos # (Auto) 0.3 Baso # (Auto) 0.0 Abs Immat Gran (auto) 0.03 Absolute Neuts (auto) 4.0 Absolute Nucleated RBC 0.000 Nucleated RBC % 0.0 Sodium 135 L Potassium 4.9 Chloride 111 H Carbon Dioxide 19 L Anion Gap 5 BUN 51 H D Creatinine 2.72 H Estim Creat Clear Calc 15 Estimated GFR 17 L Glucose 182 H POC Capillary Glucose 250 H 280 H Calcium 8.0 L Phosphorus 4.1 Total Bilirubin 0.3 AST 17 ALT 12 Alkaline Phosphatase 77 Total Protein 6.3 Albumin 3.2 L Ur Random Creatinine U Random Total Protein Protein/Creatinin Ratio Urine Albumin U Mjoxl-8-Sqgmqiqe U Jwscw-2-Lppzxdxw U Beta Globulin U Gamma Globulin U Abnormal Prot Band 1 U Abnormal Prot Band 2 U Abnormal Prot Band 3 Urine PEP Interpret [place]ON Screen c-ANCA Antibody Atypical p-ANCA p-ANCA Antibody Tot Complement (CH50) 08/06/25 08/06/25 07:43 10:55 WBC RBC Hgb Hct MCV MCH MCHC RDW Plt Count MPV Immature Gran % (Auto) Neut % (Auto) Lymph % (Auto) [place] % (Auto) Eos % (Auto) Baso % (Auto) Lymph # (Auto) [place] # (Auto) Eos # (Auto) Baso # (Auto) Abs Immat Gran (auto) Absolute Neuts (auto) Absolute Nucleated RBC Nucleated RBC % Sodium Potassium Chloride Carbon Dioxide Anion Gap BUN Creatinine Estim Creat Clear Calc Estimated GFR Glucose POC Capillary Glucose 173 H 258 H Calcium Phosphorus Total Bilirubin AST ALT Alkaline Phosphatase Total Protein Albumin Ur Random Creatinine U Random Total Protein Protein/Creatinin Ratio Urine Albumin U Oqxmd-5-Ouzysggn U Pugkw-5-Ipayvjpb U Beta Globulin U Gamma Globulin U Abnormal Prot Band 1 U Abnormal Prot Band 2 U Abnormal Prot Band 3 Urine PEP Interpret MAR[place]ON Screen c-ANCA Antibody Atypical p-ANCA p-ANCA Antibody Tot Complement (CH50)
[2025-08-06] MEDS: INSULIN ASPART (*BKC) 100 UNITS/ML SUB-Q ×2 (12:40→17:53)
[2025-08-06] MEDS: ROSUVASTATIN 10 MG TABLET PO (21:34)
[2025-08-06] MEDS: cefTRIAXone 1 GM in SODIUM CHLORIDE 0.9% IV 50 ML 100 ML IVPB (21:34)
[2025-08-07] VITALS (8 sets, daily range): BP systolic 131–154; BP diastolic 34–70; PULSE 58–72; RESP 14–18; TEMP 36.2–37.2; O2SAT 96–100
[2025-08-07] MEDS: SUCRALFATE SUSP 100 MG/ML 10 ML UDC 1000 MG PO ×4 (05:56→20:54)
[2025-08-07 06:51] LABS: Hematocrit 24.7 % (37.0-47.0); Hemoglobin 7.9 g/dL (12.0-15.0); Immature Granulocyte Percent A 0.3 % (0-0.5); Lymphocytes Absolute Auto 1.54 K/mm3 (0.9-3.2); Mean Corpuscular HGB Conc 32.0 g/dl (32-36); Mean Corpuscular Hemoglobin 30.7 pg (26-34); Mean Corpuscular Volume 96.1 fl (80-100); Nucleated Red Blood Cells Absolute Auto 0.000 K/mm3 (0.0-0.012); Nucleated Red Blood Cells Perc 0.0 % (0.0-0.2); Platelet Count Result 196 k/mm3 (150-375); Red Blood Count 2.57 M/mm3 (4.2-5.4); White Blood Count 9.0 K/mm3 (4.5-10.0)
[2025-08-07] MEDS: SODIUM CHLORIDE 0.9% IV 1,000 ML 50 ML IV CONT (06:55)
[2025-08-07 07:21] LABS: Alanine Aminotransferase 13 U/L (6-35); Albumin Level 3.2 g/dL (3.5-5.1); Alkaline Phosphatase 76 U/L (38-126); Anion Gap 7 mmol/L (4-12); Aspartate Amino Transferase 19 U/L (14-36); Bilirubin,Total 0.4 mg/dL (0.2-1.3); Blood Urea Nitrogen 38 mg/dL (7-17); Calcium 8.3 mg/dL (8.4-10.2); Carbon Dioxide 19 mmol/L (22-30); Chloride 112 mmol/L (98-107); Estimated CRCL calculation 20 ml/min; Estimated Glomerular Filt Rate 24; Glucose 192 mg/dL (65-110); Potassium 4.8 mmol/L (3.4-5.0); Sodium 138 mmol/L (137-145); Total Protein 6.4 g/dL (6.3-8.2)
--- NOTE | 2025-08-07 07:50 | P.PNIM_ITS ---
Progress Note: A&P Assessment and Plan (1) Acute kidney injury: Code(s): N17.9 - Acute kidney failure, unspecified Status: Acute Assessment and Plan: Came in with significantly elevated BUN/creatinine of 87/6.87, creatinine now improving to 6.19. No prior history of CKD or ESRD. Patient was significantly dehydrated with significant UTI as well. These are likely contributing factors to MILENA. Nephrology has been consulted. Cr 7.94>>2.07 today Continue monitoring renal function Avoid nephrotoxic agents Renal dosing of drugs Await Nephrology recommendations Renal ultrasound ordered IV fluids running - reduced NS from 100 cc/hr to 50 cc/hr as patient continues to improve and is eating and hydrating well orally. Extensive autoimmune workup included SPEP, urine immunofixation, cryoglobulins, P and C Anca, LIN[employer] MACHINE OPERATOR, double-stranded DNA antibody, glomerular basement antibody, complement, ASO, anti DNase B has all been ordered and is pending this time will follow-up AM labs ordered (2) Acute hyperkalemia: Code(s): E87.5 - Hyperkalemia Status: Acute Assessment and Plan: Significantly elevated potassium 6.3 on admission with some peaked T-waves on telemetry/EKG, now improved to 5.3 after 2 doses of Lokelma, calcium gluconate, sodium bicarbonate, insulin/dextrose. Additional dose of Lokelma ordered to further reduce potassium. Monitor potassium levels On standing Lokelma order per Nephrology Avoid agents that would increase potassium Likely to continue improving secondary to improvement of MILENA potassium wnl today AM labs (3) Urinary tract infection: Code(s): N39.0 - Urinary tract infection, site not specified Status: Acute Assessment and Plan: UTI noted on urinalysis with patient having significant symptoms. UA has been collected and culture has been sent. Patient is started on ceftriaxone, no current risk factors to be concern for sepsis or need to escalate antibiotic at this time. Continue ceftriaxone Urine culture with pansensitive klebsiella pneumonaie AM labs (4) Acute hyponatremia: Code(s): E87.1 - Hypo-osmolality and hyponatremia Status: Acute Assessment and Plan: Sodium 129, review of prior labs from prior hospitalizations shows the patient seems to manage slightly low sodium level. Now improved to 135. Continue monitoring sodium (5) Insulin dependent type 2 diabetes mellitus: Code(s): E11.9 - Type 2 diabetes mellitus without complications; Z79.4 - halfway (current) use of insulin Status: Chronic Assessment and Plan: On insulin at home Continue insulin and sliding scale Diabetic diet (6) Atherosclerotic heart disease of [place] coronary artery without angina pectoris: Code(s): I25.10 - Atherosclerotic heart disease of [place] coronary artery without angina pectoris Status: Acute Assessment and Plan: On aspirin, clopidogrel, atorvastatin, metoprolol Continue above, with renal dosing if needed (7) Colostomy in place: Code(s): Z93.3 - Colostomy status Status: Acute Assessment and Plan: Patient is scheduled for colonoscopy with GI and getting colostomy/ileostomy removed. (8) Ileostomy in place: Code(s): Z93.2 - Ileostomy status Status: Acute Assessment and Plan: Patient is scheduled for colonoscopy with GI and getting colostomy/ileostomy removed. (9) Hyperlipidemia: Code(s): E78.5 - Hyperlipidemia, unspecified Status: Acute Plan DVT prophylaxis Renal diabetic diet GI prophylaxis Continue to follow nephrology recommendations and monitor improving renal function Likely can transition to oral antibiotics on discharge if needed. Subjective Date/time seen: 08/07/25 07:50 Interval history: Patient seen for follow up visit. Patient sitting up in chair, in no acute distress. Patient denies acute pain. Patient's kidney function continues to improve. Nephrology following patient. urine culture with klebsiella pneumoniae, pansensitive, patient on IV ceftriaxone. Continue IV fluids. Labs in the AM. Review of Systems Constitutional: Constitutional: Reports as per HPI and Reports no additional constitutional complaints Eyes: Eyes: Reports as per HPI and Reports no additional eye complaints ENT: Reports system reviewed and no additional complaints, except as documented and Reports Normal hearing present Cardiovascular: Cardiovascular: Reports no additional cardiovascular co mplaints Respiratory: Respiratory: Reports as per HPI and Reports no additional respiratory complaints Gastrointestinal: Gastrointestinal: Reports as per HPI and Reports no additional gastrointestinal complaints Genitourinary: Genitourinary: Reports no additional female genitourinary complaints Musculoskeletal: Musculoskeletal: Reports no additional musculoskeletal complaints Integumentary/Breasts: Skin/Breast: Reports system reviewed and no additional complaints, except as docu Neurologic: Reports system reviewed and no additional complaints, except as documented and Reports Normal hearing present Psychiatric: Psychiatric: Reports no additional psychiatric complaints and Reports as per HPI Hematologic/Lymphatic: Hematologic/Lymphatic: Reports no additional hematologic/lymphatic complaints Allergic/Immunologic: Allergic/Immunologic: Reports no additional allergic/immunologic complaints Exam Const: General: cooperative, healthy appearing, comfortable, no acute distress, well developed, awake, Physically active, average body habitus and well nourished Nutritional Appearance: average body habitus and well nourished Orientation/consciousness: oriented to person, oriented to place, oriented to time and patient oriented x3 Limitations: no limitations HENMT: Head: normal to inspection, No palpable skull fracture present and normocephalic Eyes: General: appearance normal, both eyes and all related structures Alignment and Position: alignment normal Periorbital: periorbital findings normal Eyelids: eyelids normal EOM: EOMs intact bilaterally Neck: Neck: normal visual inspection, full ROM and no lymphadenopathy Resp: Effort & Inspection: normal respiratory effort Auscultation: clear to auscultation bilaterally Percussion: percussion normal Cardio: Rate: regular rate Rhythm: regular rhythm GI: Inspection: normal to inspection Auscultation: normal bowel sounds Other: Ileostomy and colostomy bag intact. 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 Neuro: General: oriented to person, oriented to place, oriented to time and patient oriented x3 Cranial nerves: Yes Normal hearing present Cognition (Neuro): normal cognition Speech: normal speech Motor exam (neuro): 5/5 motor strength present throughout Sensory Exam: normal sensation Extrem: General: normal to inspection Right upper extremity: normal to inspection and shoulder/upper arm Left upper extremity: normal to inspection and shoulder/upper arm Right lower extremity: foot Left lower extremity: normal to inspection Other: Previous history of 2nd right toe amputated Psych: Appearance: grossly normal Mental Status: mental status grossly normal Speech and movement: Normal speech and movement present Affect: normal affect Attitude: cooperative Objective Data Vital Signs Vital Signs: Vital Signs - 24 hr 08/06/25 08:00 08/06/25 08:00 08/06/25 08:00 Temperature 96.3 F L Pulse Rate 58 L 56 L Respiratory Rate 14 Blood Pressure 133/44 L Pulse Oximetry 100 Oxygen Delivery Room Air 08/06/25 08:14 08/06/25 08:15 08/06/25 12:00 Temperature 96.4 F L Pulse Rate 58 L 58 L 55 L Respiratory Rate 18 Blood Pressure 152/36 H Pulse Oximetry 100 Oxygen Delivery 08/06/25 12:00 08/06/25 16:00 08/06/25 16:00 Temperature 97.5 F L Pulse Rate 54 L 58 L 65 Respiratory Rate 18 Blood Pressure 163/40 H Pulse Oximetry 100 Oxygen Delivery 08/06/25 20:00 08/06/25 20:00 08/06/25 21:34 Temperature Pulse Rate 66 64 65 Respiratory Rate 18 Blood Pressure Pulse Oximetry 100 Oxygen Delivery Room Air 08/06/25 21:34 08/06/25 22:00 08/07/25 00:00 Temperature 97.0 F L Pulse Rate 65 66 64 Respiratory Rate 18 Blood Pressure 157/41 H Pulse Oximetry 100 Oxygen Delivery 08/07/25 04:00 08/07/25 05:49 Temperature 97.1 F L Pulse Rate 62 63 Respiratory Rate 16 Blood Pressure 131/48 L Pulse Oximetry 100 Oxygen Delivery Intake/Output Intake/Output: Intake & Output 08/04/25 08/05/25 08/06/25 08/07/25 23:59 23:59 23:59 23:59 Intake Total 2070 3360 2330 1400 Output Total 3675 2700 3940 2025 Balance -160 660 -1610 -532 Meds/Results Medications: Active Medications Generic Name Dose Route Start Last Admin Trade Name Freq PRN Reason Stop Dose Admin Acetaminophen 650 mg 08/04/25 00:46 08/04/25 01:25 Acetaminophen 325 Mg Tablet PO 650 mg Q6H PRN Administration Pain Amiodarone HCl 200 mg 08/04/25 09:00 08/06/25 21:34 Amiodarone Hcl 200 Mg Tablet PO 200 mg Q12HR [place] Administration Aspirin 81 mg 08/04/25 09:00 08/06/25 08:15 Aspirin 81 Mg Enteric Tablet PO 09/03/25 08:59 81 mg DAILY [place] Administration Calcium Polycarbophil 625 mg 08/04/25 09:00 08/06/25 08:14 Calcium Polycarbophil 625 Mg Tablet PO 625 mg DAILY [place] Administration Clopidogrel Bisulfate 75 mg 08/04/25 09:00 08/06/25 08:15 Clopidogrel Bisulfate 75 Mg Tablet PO 75 mg DAILY [place] Administration Dicyclomine HCl 10 mg 08/04/25 09:00 08/06/25 21:34 Dicyclomine Hcl 10 Mg Capsule PO 10 mg QID [place] Administration Diphenoxylate HCl/Atropine 2 tablet 08/04/25 00:46 Diphenoxylate/Atropine (*Crx) 2.5 Mg Tablet PO BID PRN Diarrhea Glucagon 1 mg 08/04/25 00:48 Glucagon For Inj 1 Mg Vial IM PRN PRN Hypoglycemia Protocol Glucose 15 gm 08/04/25 00:48 Glucose Oral Gel 15 Gm Of Glucse In 37.5 Gm Tube PO PRN PRN Hypoglycemia Protocol Ceftriaxone Sodium 1 gm/ 50 mls @ 100 mls/hr 08/04/25 22:00 08/06/25 21:34 Sodium Chloride IVPB 100 mls/hr Q24H [place] Administration Dextrose 1,000 mls @ 100 mls/hr 08/04/25 00:48 Dextrose 5% 1,000 Ml IVPB PRN PRN Hypoglycemia Protocol Sodium Chloride 1,000 mls @ 50 mls/hr 08/05/25 09:10 08/07/25 06:55 Normal Saline Iv IV CONT 50 mls/hr .Q20H [place] Administration Insulin Aspart 3 - 6 units 08/04/25 08:00 08/06/25 17:53 Insulin Aspart (*Bkc) 100 Units/Ml SUB-Q 3 units TIDWM [place] Administration Protocol Loratadine 10 mg 08/04/25 09:00 08/06/25 08:15 Loratadine 10 Mg Tablet PO 09/03/25 08:59 10 mg DAILY [place] Administration Metoprolol Succinate 50 mg 08/04/25 09:00 08/06/25 21:34 Metoprolol Succinate Ext Rel 50 Mg Tabcr PO 50 mg Q12HR [place] Administration Pantoprazole Sodium 20 mg 08/04/25 09:00 08/06/25 08:15 Pantoprazole Sod Sesquihydrate 20 Mg Tab PO 20 mg DAILY [place] Administration Rosuvastatin Calcium 10 mg 08/04/25 21:00 08/06/25 21:34 Rosuvastatin 10 Mg Tablet PO 10 mg HS [place] Administration Sertraline HCl 25 mg 08/04/25 09:00 08/06/25 08:15 Sertraline Hcl 25 Mg Tablet PO 25 mg DAILY [place] Administration Sodium Bicarbonate 650 mg 08/05/25 09:05 08/06/25 16:36 Sodium Bicarbonate Tab 650 Mg Tablet PO 650 mg BID [place] Administration Sodium Zirconium Cyclosilicate 10 gm 08/05/25 10:00 08/06/25 18:33 Sodium Zirconium Cyclosilicate 10 Gm Powd.Pack PO 10 gm BID@1000,1800 [place] Administration Sucralfate 1,000 mg 08/04/25 06:30 08/07/25 05:56 Sucralfate Susp 100 Mg/Ml 10 Ml Udc PO 1,000 mg ACHS [place] Administration Radiology Results: ITS Impressions Chest/Abdomen/Pelvis CT 08/03/25 21:34 IMPRESSION: 1. Cholelithiasis. 2: Pelvic relaxation. 3: No acute abnormality of the chest, abdomen or pelvis. Renal Ultrasound 08/04/25 11:51 IMPRESSION: 1. Mildly increased echotexture of the kidneys may represent underlying medical renal disease. 2. Limited evaluation of the urinary bladder. Chest X-Ray 08/05/25 09:33 IMPRESSION: 1. No focal acute process. Labs Labs: Laboratory Results - last 24 hr 08/06/25 08/06/25 08/06/25 07:43 10:55 11:23 WBC RBC Hgb Hct MCV MCH MCHC RDW Plt Count MPV Immature Gran % (Auto) Neut % (Auto) Lymph % (Auto) [place] % (Auto) Eos % (Auto) Baso % (Auto) Lymph # (Auto) [place] # (Auto) Eos # (Auto) Baso # (Auto) Abs Immat Gran (auto) Absolute Neuts (auto) Absolute Nucleated RBC Nucleated RBC % Sodium Potassium Chloride Carbon Dioxide Anion Gap BUN Creatinine Estim Creat Clear Calc Estimated GFR Glucose POC Capillary Glucose 173 H 258 H 251 H Calcium Phosphorus Total Bilirubin AST ALT Alkaline Phosphatase Total Protein Albumin 08/06/25 08/06/25 08/07/25 16:32 20:00 05:55 WBC 9.0 RBC 2.57 L Hgb 7.9 L Hct 24.7 L MCV 96.1 MCH 30.7 MCHC 32.0 RDW 13.4 Plt Count 196 MPV 10.4 Immature Gran % (Auto) 0.3 Neut % (Auto) 73.2 H Lymph % (Auto) 17.1 L [place] % (Auto) 5.3 Eos % (Auto) 3.5 Baso % (Auto) 0.6 Lymph # (Auto) 1.54 [place] # (Auto) 0.5 Eos # (Auto) 0.3 Baso # (Auto) 0.1 Abs Immat Gran (auto) 0.03 Absolute Neuts (auto) 6.6 Absolute Nucleated RBC 0.000 Nucleated RBC % 0.0 Sodium 138 Potassium 4.8 Chloride 112 H Carbon Dioxide 19 L Anion Gap 7 BUN 38 H D Creatinine 2.07 H Estim Creat Clear Calc 20 Estimated GFR 24 L Glucose 192 H POC Capillary Glucose 249 H 223 H Calcium 8.3 L Phosphorus 3.3 Total Bilirubin 0.4 AST 19 ALT 13 Alkaline Phosphatase 76 Total Protein 6.4 Albumin 3.2 L Quality VTE Prophylaxis VTE prophylaxis: mechanical ordered Hospitalist [facility] Advance Care Plan I have confirmed that the patient's Advanced Care Plan is present, code status is documented, or surrogate decision maker is listed in patient medical record.: Yes Medication Reconciliation I have utilized all available resources to obtain, update and review the patients current medications (includes all prescriptions, OTC, herbals, cannabis, and nutritional supplements).: Yes
[2025-08-07] MEDS: SODIUM BICARBONATE TAB 650 MG TABLET PO ×2 (09:11→18:02)
[2025-08-07] MEDS: SERTRALINE HCL 25 MG TABLET PO (09:11)
[2025-08-07] MEDS: CLOPIDOGREL BISULFATE 75 MG TABLET PO (09:12)
[2025-08-07] MEDS: PANTOPRAZOLE SOD SESQUIHYDRATE 20 MG TAB PO (09:12)
[2025-08-07] MEDS: ASPIRIN 81 MG ENTERIC TABLET PO (09:12)
[2025-08-07] MEDS: LORATADINE 10 MG TABLET PO (09:12)
[2025-08-07] MEDS: METOPROLOL SUCCINATE EXT REL 50 MG TABCR PO ×2 (09:12→20:54)
[2025-08-07] MEDS: AMIODARONE HCL 200 MG TABLET PO ×2 (09:12→20:53)
[2025-08-07] MEDS: SODIUM ZIRCONIUM CYCLOSILICATE 10 GM POWD.PACK PO (09:12)
[2025-08-07] MEDS: DICYCLOMINE HCL 10 MG CAPSULE PO ×4 (09:12→20:53)
--- NOTE | 2025-08-07 10:13 | P.PNNP_ITS ---
Progress Note: A&P Assessment and Plan (1) Acute kidney injury: Code(s): N17.9 - Acute kidney failure, unspecified Status: Acute Assessment and Plan: * as noted by admission labs (creatinine 7.94mg/dl) * normal creatinine at baseline (by September 2024 discharge labs from here) * however, may have some underlying CKD based on outpatient labs: * creatinine 1.19mg/dl in late September 2024 * creatinine 1.37,g/dl in October 2024 * creatinine 1.7mg/dl in April 2025 * suspect multifactorial etiology: * prerenal factors * ARB use prior to admission * infection (UTI) * contrast exposure (with CT scan on 07/29/25) * other(?) * evaluation to date noted: * CT imaging with obstruction * renal u/s without obstruction (but evidence of medical renal disease) * urine electrolytes prerenal * urine eosinophils rare - possibly due to UTI * moderate proteinuria * CPK normal * ESR elevated (chronically elevated since September 2024) * CRP normal * extensive serologies pending * Patient still getting IV fluids : 0.9 % saline at 50 an hour. * Her creatinine has come down from over 7 to current level of 2.07. * Will continue the fluids for now. * Sodium, potassium, are okay. Bicarbonate level is still a bit low but on it s way up. She is on bicarb supplements. * Check another lab tomorrow (2) Acute hyperkalemia: Code(s): E87.5 - Hyperkalemia Status: Acute Assessment and Plan: * Resolved (3) Hyponatremia: Code(s): E87.1 - Hypo-osmolality and hyponatremia Status: Chronic Assessment and Plan: * somewhat of a chronic issue * baseline sodium runs ~ 126 - 136mmol/L in the last year * admission sodium 129mmol/L * suspect partly due to MILENA and associated volume depletion * Sodium improved. Today it is 138. (4) Metabolic acidosis: Code(s): E87.20 - Acidosis, unspecified Status: Acute Assessment and Plan: * due to MILENA/ARF * CO2 level is up to 19 * Still on sodium bicarb tablets. Will continue these for now. (5) Urinary tract infection: Code(s): N39.0 - Urinary tract infection, site not specified Status: Acute Assessment and Plan: * suggested by admission * some clinical symptoms noted as well * follow urine culture results * on ceftriaxone (6) Anemia: Code(s): D64.9 - Anemia, unspecified Status: Chronic Assessment and Plan: * chronic issues as well * Hemoglobin bouncing her around in the vicinity of 8.0. * also likely exacerbated by MILENA/ARF * hemoglobin stable (7) Hypertension: Qualifiers: Hypertension type: primary hypertension Qualified Code(s): I10 - Essential (primary) hypertension Code(s): I10 - Essential (primary) hypertension Status: Chronic Assessment and Plan: * reasonable control at this time * off losartan due to #1 * Systolic 131-150 today (8) Insulin dependent type 2 diabetes mellitus: Code(s): E11.9 - Type 2 diabetes mellitus without complications; Z79.4 - [place] (current) use of insulin Status: Chronic Assessment and Plan: * follow accu-cheks * glycemic control per hospitalist Will continue to follow. Subjective Date/time seen: 08/07/25 10:13 Interval history: patient is up in a chair. She feels a little better. Exam Narrative: General: elderly but WD/WN female in NAD Heart: normal S1 and S2; no rub or gallop Lungs: clear to auscultation Abdomen: soft, nontender, nondistended, positive bowel sounds; + ileostomy and colostomy Extremities: no edema Skin: warm and dry without rash Objective Data Vital Signs Vital Signs: Vital Signs - 24 hr 08/06/25 12:00 08/06/25 12:00 08/06/25 16:00 Temperature 96.4 F L Pulse Rate 55 L 54 L 58 L Respiratory Rate 18 Blood Pressure 152/36 H Pulse Oximetry 100 Oxygen Delivery 08/06/25 16:00 08/06/25 20:00 08/06/25 20:00 Temperature 97.5 F L Pulse Rate 65 66 64 Respiratory Rate 18 18 Blood Pressure 163/40 H Pulse Oximetry 100 100 Oxygen Delivery Room Air 08/06/25 21:34 08/06/25 21:34 08/06/25 22:00 Temperature 97.0 F L Pulse Rate 65 65 66 Respiratory Rate 18 Blood Pressure 157/41 H Pulse Oximetry 100 Oxygen Delivery 08/07/25 00:00 08/07/25 04:00 08/07/25 05:49 Temperature 97.1 F L Pulse Rate 64 62 63 Respiratory Rate 16 Blood Pressure 131/48 L Pulse Oximetry 100 Oxygen Delivery 08/07/25 08:00 Temperature 99.0 F Pulse Rate 65 Respiratory Rate 14 Blood Pressure 150/34 H Pulse Oximetry 96 Oxygen Delivery Intake/Output Intake/Output: Intake & Output 08/04/25 08/05/25 08/06/25 08/07/25 23:59 23:59 23:59 23:59 Intake Total 2070 3360 2330 2130 Output Total 3675 2700 3940 2525 Balance -1601 660 -1610 -016 Meds/Results Medications: Active Medications Generic Name Dose Route Start Last Admin Trade Name Freq PRN Reason Stop Dose Admin Acetaminophen 650 mg 08/04/25 00:46 08/04/25 01:25 Acetaminophen 325 Mg Tablet PO 650 mg Q6H PRN Administration Pain Amiodarone HCl 200 mg 08/04/25 09:00 08/07/25 09:12 Amiodarone Hcl 200 Mg Tablet PO 200 mg Q12HR [place] Administration Aspirin 81 mg 08/04/25 09:00 08/07/25 09:12 Aspirin 81 Mg Enteric Tablet PO 09/03/25 08:59 81 mg DAILY [place] Administration Calcium Polycarbophil 625 mg 08/04/25 09:00 08/07/25 09:11 Calcium Polycarbophil 625 Mg Tablet PO 625 mg DAILY [place] Administration Clopidogrel Bisulfate 75 mg 08/04/25 09:00 08/07/25 09:12 Clopidogrel Bisulfate 75 Mg Tablet PO 75 mg DAILY [place] Administration Dicyclomine HCl 10 mg 08/04/25 09:00 08/07/25 09:12 Dicyclomine Hcl 10 Mg Capsule PO 10 mg QID [place] Administration Diphenoxylate HCl/Atropine 2 tablet 08/04/25 00:46 Diphenoxylate/Atropine (*Crx) 2.5 Mg Tablet PO BID PRN Diarrhea Glucagon 1 mg 08/04/25 00:48 Glucagon For Inj 1 Mg Vial IM PRN PRN Hypoglycemia Protocol Glucose 15 gm 08/04/25 00:48 Glucose Oral Gel 15 Gm Of Glucse In 37.5 Gm Tube PO PRN PRN Hypoglycemia Protocol Ceftriaxone Sodium 1 gm/ 50 mls @ 100 mls/hr 08/04/25 22:00 08/06/25 21:34 Sodium Chloride IVPB 100 mls/hr Q24H [place] Administration Dextrose 1,000 mls @ 100 mls/hr 08/04/25 00:48 Dextrose 5% 1,000 Ml IVPB PRN PRN Hypoglycemia Protocol Sodium Chloride 1,000 mls @ 50 mls/hr 08/05/25 09:10 08/07/25 06:55 Normal Saline Iv IV CONT 50 mls/hr .Q20H [place] Administration Insulin Aspart 3 - 6 units 08/04/25 08:00 08/07/25 09:09 Insulin Aspart (*Bkc) 100 Units/Ml SUB-Q Not Given TIDWM [place] Protocol Loratadine 10 mg 08/04/25 09:00 08/07/25 09:12 Loratadine 10 Mg Tablet PO 09/03/25 08:59 10 mg DAILY [place] Administration Metoprolol Succinate 50 mg 08/04/25 09:00 08/07/25 09:12 Metoprolol Succinate Ext Rel 50 Mg Tabcr PO 50 mg Q12HR [place] Administration Pantoprazole Sodium 20 mg 08/04/25 09:00 08/07/25 09:12 Pantoprazole Sod Sesquihydrate 20 Mg Tab PO 20 mg DAILY [place] Administration Rosuvastatin Calcium 10 mg 08/04/25 21:00 08/06/25 21:34 Rosuvastatin 10 Mg Tablet PO 10 mg HS [place] Administration Sertraline HCl 25 mg 08/04/25 09:00 08/07/25 09:11 Sertraline Hcl 25 Mg Tablet PO 25 mg DAILY [place] Administration Sodium Bicarbonate 650 mg 08/05/25 09:05 08/07/25 09:11 Sodium Bicarbonate Tab 650 Mg Tablet PO 650 mg BID [place] Administration Sodium Zirconium Cyclosilicate 10 gm 08/05/25 10:00 08/07/25 09:12 Sodium Zirconium Cyclosilicate 10 Gm Powd.Pack PO 10 gm BID@1000,1800 [place] Administration Sucralfate 1,000 mg 08/04/25 06:30 08/07/25 05:56 Sucralfate Susp 100 Mg/Ml 10 Ml Udc PO 1,000 mg ACHS [place] Administration Radiology Results: ITS Impressions Chest/Abdomen/Pelvis CT 08/03/25 21:34 IMPRESSION: 1. Cholelithiasis. 2: Pelvic relaxation. 3: No acute abnormality of the chest, abdomen or pelvis. Renal Ultrasound 08/04/25 11:51 IMPRESSION: 1. Mildly increased echotexture of the kidneys may represent underlying medical renal disease. 2. Limited evaluation of the urinary bladder. Chest X-Ray 08/05/25 09:33 IMPRESSION: 1. No focal acute process. Labs Labs: Laboratory Results - last 24 hr 08/06/25 08/06/25 08/06/25 10:55 11:23 16:32 WBC RBC Hgb Hct MCV MCH MCHC RDW Plt Count MPV Immature Gran % (Auto) Neut % (Auto) Lymph % (Auto) [place] % (Auto) Eos % (Auto) Baso % (Auto) Lymph # (Auto) [place] # (Auto) Eos # (Auto) Baso # (Auto) Abs Immat Gran (auto) Absolute Neuts (auto) Absolute Nucleated RBC Nucleated RBC % Sodium Potassium Chloride Carbon Dioxide Anion Gap BUN Creatinine Estim Creat Clear Calc Estimated GFR Glucose POC Capillary Glucose 258 H 251 H 249 H Calcium Phosphorus Total Bilirubin AST ALT Alkaline Phosphatase Total Protein Albumin 08/06/25 08/07/25 08/07/25 20:00 05:55 07:36 WBC 9.0 RBC 2.57 L Hgb 7.9 L Hct 24.7 L MCV 96.1 MCH 30.7 MCHC 32.0 RDW 13.4 Plt Count 196 MPV 10.4 Immature Gran % (Auto) 0.3 Neut % (Auto) 73.2 H Lymph % (Auto) 17.1 L [place] % (Auto) 5.3 Eos % (Auto) 3.5 Baso % (Auto) 0.6 Lymph # (Auto) 1.54 [place] # (Auto) 0.5 Eos # (Auto) 0.3 Baso # (Auto) 0.1 Abs Immat Gran (auto) 0.03 Absolute Neuts (auto) 6.6 Absolute Nucleated RBC 0.000 Nucleated RBC % 0.0 Sodium 138 Potassium 4.8 Chloride 112 H Carbon Dioxide 19 L Anion Gap 7 BUN 38 H D Creatinine 2.07 H Estim Creat Clear Calc 20 Estimated GFR 24 L Glucose 192 H POC Capillary Glucose 223 H 191 H Calcium 8.3 L Phosphorus 3.3 Total Bilirubin 0.4 AST 19 ALT 13 Alkaline Phosphatase 76 Total Protein 6.4 Albumin 3.2 L
[2025-08-07] MEDS: INSULIN ASPART (*BKC) 100 UNITS/ML SUB-Q ×2 (12:04→18:01)
[2025-08-07] MEDS: ROSUVASTATIN 10 MG TABLET PO (20:54)
[2025-08-07] MEDS: cefTRIAXone 1 GM in SODIUM CHLORIDE 0.9% IV 50 ML 100 ML IVPB (21:05)
[2025-08-08] VITALS (7 sets, daily range): BP systolic 136–145; BP diastolic 43–69; PULSE 67–75; RESP 16–18; TEMP 36.5–37.1; O2SAT 91–100
[2025-08-08] MEDS: SUCRALFATE SUSP 100 MG/ML 10 ML UDC 1000 MG PO ×2 (05:49→10:35)
[2025-08-08 06:41] LABS: Hematocrit 24.2 % (37.0-47.0); Hemoglobin 7.7 g/dL (12.0-15.0); Immature Granulocyte Percent A 0.8 % (0-0.5); Lymphocytes Absolute Auto 1.29 K/mm3 (0.9-3.2); Mean Corpuscular HGB Conc 31.8 g/dl (32-36); Mean Corpuscular Hemoglobin 30.4 pg (26-34); Mean Corpuscular Volume 95.7 fl (80-100); Nucleated Red Blood Cells Absolute Auto 0.000 K/mm3 (0.0-0.012); Nucleated Red Blood Cells Perc 0.0 % (0.0-0.2); Platelet Count Result 187 k/mm3 (150-375); Red Blood Count 2.53 M/mm3 (4.2-5.4); White Blood Count 12.0 K/mm3 (4.5-10.0)
[2025-08-08 07:06] LABS: Alanine Aminotransferase 13 U/L (6-35); Albumin Level 3.2 g/dL (3.5-5.1); Alkaline Phosphatase 80 U/L (38-126); Anion Gap 6 mmol/L (4-12); Aspartate Amino Transferase 18 U/L (14-36); Bilirubin,Total 0.6 mg/dL (0.2-1.3); Blood Urea Nitrogen 31 mg/dL (7-17); Calcium 8.1 mg/dL (8.4-10.2); Carbon Dioxide 19 mmol/L (22-30); Chloride 107 mmol/L (98-107); Estimated CRCL calculation 22 ml/min; Estimated Glomerular Filt Rate 26; Glucose 241 mg/dL (65-110); Potassium 4.6 mmol/L (3.4-5.0); Sodium 132 mmol/L (137-145); Total Protein 6.4 g/dL (6.3-8.2)
[2025-08-08] MEDS: AMIODARONE HCL 200 MG TABLET PO (08:20)
[2025-08-08] MEDS: INSULIN ASPART (*BKC) 100 UNITS/ML SUB-Q (08:20)
[2025-08-08] MEDS: LORATADINE 10 MG TABLET PO (08:21)
[2025-08-08] MEDS: METOPROLOL SUCCINATE EXT REL 50 MG TABCR PO (08:21)
[2025-08-08] MEDS: SODIUM BICARBONATE TAB 650 MG TABLET PO (08:21)
[2025-08-08] MEDS: CLOPIDOGREL BISULFATE 75 MG TABLET PO (08:21)
[2025-08-08] MEDS: DICYCLOMINE HCL 10 MG CAPSULE PO (08:21)
[2025-08-08] MEDS: ASPIRIN 81 MG ENTERIC TABLET PO (08:21)
[2025-08-08] MEDS: PANTOPRAZOLE SOD SESQUIHYDRATE 20 MG TAB PO (08:21)
[2025-08-08] MEDS: SERTRALINE HCL 25 MG TABLET PO (08:21)
--- NOTE | 2025-08-08 09:35 | P.PNNP_ITS ---
Progress Note: A&P Assessment and Plan (1) Acute kidney injury: Code(s): N17.9 - Acute kidney failure, unspecified Status: Acute Assessment and Plan: * as noted by admission labs (creatinine 7.94mg/dl) * normal creatinine at baseline (by September 2024 discharge labs from here) * however, may have some underlying CKD based on outpatient labs: * creatinine 1.19mg/dl in late September 2024 * creatinine 1.37,g/dl in October 2024 * creatinine 1.7mg/dl in April 2025 * suspect multifactorial etiology: * prerenal factors * ARB use prior to admission * infection (UTI) * contrast exposure (with CT scan on 07/29/25) * other(?) * evaluation to date noted: * CT imaging with obstruction * renal u/s without obstruction (but evidence of medical renal disease) * urine electrolytes prerenal * urine eosinophils rare - possibly due to UTI * moderate proteinuria * CPK normal * ESR elevated (chronically elevated since September 2024) * CRP normal * serologies to date negative (some still pending) * follow trend of labs and UOP (2) Acute hyperkalemia: Code(s): E87.5 - Hyperkalemia Status: Acute Assessment and Plan: * resolved (3) Hyponatremia: Code(s): E87.1 - Hypo-osmolality and hyponatremia Status: Chronic Assessment and Plan: * somewhat of a chronic issue * baseline sodium runs ~ 126 - 136mmol/L in the last year * admission sodium 129mmol/L * suspect partly due to MILENA and associated volume depletion * stable if not better... (4) Metabolic acidosis: Code(s): E87.20 - Acidosis, unspecified Status: Acute Assessment and Plan: * due to MILENA/ARF * CO2 level is up to 19 * on oral sodium bicarbonate to compensate * attempt to wean off (but may need this due to her colostomy/GI loss) * follow the trend (5) Urinary tract infection: Code(s): N39.0 - Urinary tract infection, site not specified Status: Acute Assessment and Plan: * suggested by admission * some clinical symptoms noted as well * follow urine culture results - Klebsiella noted * on antibiotics (6) Anemia: Code(s): D64.9 - Anemia, unspecified Status: Chronic Assessment and Plan: * chronic issue as well * also likely exacerbated by MILENA/ARF and IVF resuscitation (hemodilution) * consider DARREL if renal function does not normalize * follow trend of H/H (7) Hypertension: Qualifiers: Hypertension type: primary hypertension Qualified Code(s): I10 - Essential (primary) hypertension Code(s): I10 - Essential (primary) hypertension Status: Chronic Assessment and Plan: * reasonable control at this time * off losartan due to #1 * follow trend of hemodynamics (8) Insulin dependent type 2 diabetes mellitus: Code(s): E11.9 - Type 2 diabetes mellitus without complications; Z79.4 - intermediate accountant (current) use of insulin Status: Chronic Assessment and Plan: * follow accu-cheks * glycemic control per hospitalist Will continue to follow. L Subjective Date/time seen: 08/08/25 09:35 Interval history: Follow-up for acute kidney injury/acute renal failure Chart reviewed since last seen -- renal function/creatinine continues to slowly improve with current interventions/therapy; no apparent distress noted at the time of my visit; feels reasonably well; no issues/events overnight or earlier this morning. Exam 2 Narrative: General: elderly but WD/WN female in NAD Heart: normal S1 and S2; no rub Lungs: clear to auscultation Abdomen: soft, nontender, nondistended, positive bowel sounds; + ileostomy and colostomy Extremities: no cyanosis or clubbing; no edema Skin: warm and intact Objective Data Vital Signs Vital Signs: Vital Signs Temp Pulse Resp BP Pulse Ox O2 Del Method 08/08/25 08:21 75 08/08/25 08:20 75 08/08/25 08:00 75 08/08/25 08:00 Room Air 08/08/25 04:42 98.2 F 72 18 136/49 L 91 08/08/25 04:00 72 08/08/25 00:00 98.8 F 67 16 145/69 H 100 08/08/25 00:00 68 08/07/25 20:53 68 08/07/25 20:23 98.8 F 72 18 141/70 H 97 08/07/25 16:00 98.7 F 64 16 140/42 L 100 08/07/25 16:00 62 08/07/25 12:00 58 L 08/07/25 12:00 98.8 F 63 18 154/43 H 97 Intake/Output Intake/Output: Intake & Output 08/05/25 08/06/25 08/07/25 08/08/25 23:59 23:59 23:59 23:59 Intake Total 3360 2380 2850 644 Output Total 2700 3940 4150 675 Balance 660 -1560 -1300 -31 Meds/Results Medications: Active Medications Generic Name Dose Route Start Last Admin Trade Name Freq PRN Reason Stop Dose Admin Acetaminophen 650 mg 08/04/25 00:46 08/04/25 01:25 Acetaminophen 325 Mg Tablet PO 650 mg Q6H PRN Administration Pain Amiodarone HCl 200 mg 08/04/25 09:00 08/08/25 08:20 Amiodarone Hcl 200 Mg Tablet PO 200 mg Q12HR [place] Administration Aspirin 81 mg 08/04/25 09:00 08/08/25 08:21 Aspirin 81 Mg Enteric Tablet PO 09/03/25 08:59 81 mg DAILY [facility] Administration Calcium Polycarbophil 625 mg 08/04/25 09:00 08/08/25 08:21 Calcium Polycarbophil 625 Mg Tablet PO 625 mg DAILY [facility] Administration Clopidogrel Bisulfate 75 mg 08/04/25 09:00 08/08/25 08:21 Clopidogrel Bisulfate 75 Mg Tablet PO 75 mg DAILY [facility] Administration Dicyclomine HCl 10 mg 08/04/25 09:00 08/08/25 08:21 Dicyclomine Hcl 10 Mg Capsule PO 10 mg QID [place] Administration Diphenoxylate HCl/Atropine 2 tablet 08/04/25 00:46 Diphenoxylate/Atropine (*Crx) 2.5 Mg Tablet PO BID PRN Diarrhea Glucagon 1 mg 08/04/25 00:48 Glucagon For Inj 1 Mg Vial IM PRN PRN Hypoglycemia Protocol Glucose 15 gm 08/04/25 00:48 Glucose Oral Gel 15 Gm Of Glucse In 37.5 Gm Tube PO PRN PRN Hypoglycemia Protocol Ceftriaxone Sodium 1 gm/ 50 mls @ 100 mls/hr 08/04/25 22:00 08/07/25 21:05 Sodium Chloride IVPB 100 mls/hr Q24H [place] Administration Dextrose 1,000 mls @ 100 mls/hr 08/04/25 00:48 Dextrose 5% 1,000 Ml IVPB PRN PRN Hypoglycemia Protocol Sodium Chloride 1,000 mls @ 50 mls/hr 08/05/25 09:10 08/07/25 18:02 Normal Saline Iv IV CONT Not Given .Q20H [place] Insulin Aspart 3 - 6 units 08/04/25 08:00 08/08/25 08:20 Insulin Aspart (*Bkc) 100 Units/Ml SUB-Q 3 units TIDWM [place] Administration Protocol Loratadine 10 mg 08/04/25 09:00 08/08/25 08:21 Loratadine 10 Mg Tablet PO 09/03/25 08:59 10 mg DAILY [place] Administration Metoprolol Succinate 50 mg 08/04/25 09:00 08/08/25 08:21 Metoprolol Succinate Ext Rel 50 Mg Tabcr PO 50 mg Q12HR [place] Administration Pantoprazole Sodium 20 mg 08/04/25 09:00 08/08/25 08:21 Pantoprazole Sod Sesquihydrate 20 Mg Tab PO 20 mg DAILY [place] Administration Rosuvastatin Calcium 10 mg 08/04/25 21:00 08/07/25 20:54 Rosuvastatin 10 Mg Tablet PO 10 mg HS [facility] Administration Sertraline HCl 25 mg 08/04/25 09:00 08/08/25 08:21 Sertraline Hcl 25 Mg Tablet PO 25 mg DAILY [place] Administration Sodium Bicarbonate 650 mg 08/05/25 09:05 08/08/25 08:21 Sodium Bicarbonate Tab 650 Mg Tablet PO 650 mg BID [place] Administration Sucralfate 1,000 mg 08/04/25 06:30 08/08/25 10:35 Sucralfate Susp 100 Mg/Ml 10 Ml Udc PO 1,000 mg ACHS [place] Administration Radiology Results: ITS Impressions Chest/Abdomen/Pelvis CT 08/03/25 21:34 IMPRESSION: 1. Cholelithiasis. 2: Pelvic relaxation. 3: No acute abnormality of the chest, abdomen or pelvis. Renal Ultrasound 08/04/25 11:51 IMPRESSION: 1. Mildly increased echotexture of the kidneys may represent underlying medical renal disease. 2. Limited evaluation of the urinary bladder. Chest X-Ray 08/05/25 09:33 IMPRESSION: 1. No focal acute process. Labs Labs: Laboratory Tests 08/08/25 05:42 08/08/25 05:42 Calcium 8.1 L Phosphorus 2.8 Total Bilirubin 0.6 AST 18 ALT 13 Alkaline Phosphatase 80 Total Protein 6.4 Albumin 3.2 L Microbiology 08/03/25 20:58 Unspecified Urine - Final Klebsiella pneumoniae 08/03/25 21:55 Blood Blood Culture - Preliminary 08/03/25 22:32 Blood Blood Culture - Preliminary
--- NOTE | 2025-08-08 09:55 | P.DS_ITS ---
DS: Admitting Diagnosis Discharge Date 08/08/2025 0915 Admitting Diagnosis Acute kidney failure DS: Discharge Diagnosis Discharge Diagnosis (1) Acute kidney injury: Code(s): N17.9 - Acute kidney failure, unspecified Status: Acute Assessment and Plan: Came in with significantly elevated BUN/creatinine of 87/6.87, creatinine now improving to 6.19. No prior history of CKD or ESRD. Patient was significantly dehydrated with significant UTI as well. These are likely contributing factors to MILENA. Nephrology has been consulted. Cr 7.94>>2.07 today Continue monitoring renal function Avoid nephrotoxic agents Renal dosing of drugs Await Nephrology recommendations Renal ultrasound ordered IV fluids running - reduced NS from 100 cc/hr to 50 cc/hr as patient continues to improve and is eating and hydrating well orally. Extensive autoimmune workup included SPEP, urine immunofixation, cryoglobulins, P and C Anca, [employer], double-stranded DNA antibody, glomerular basement antibody, complement, ASO, anti DNase B has all been ordered and is pending this time will follow-up AM labs ordered (2) Acute hyperkalemia: Code(s): E87.5 - Hyperkalemia Status: Acute Assessment and Plan: Significantly elevated potassium 6.3 on admission with some peaked T-waves on telemetry/EKG, now improved to 5.3 after 2 doses of Lokelma, calcium gluconate, sodium bicarbonate, insulin/dextrose. Additional dose of Lokelma ordered to further reduce potassium. Monitor potassium levels On standing Lokelma order per Nephrology Avoid agents that would increase potassium Likely to continue improving secondary to improvement of MILENA potassium wnl today AM labs (3) Urinary tract infection: Code(s): N39.0 - Urinary tract infection, site not specified Status: Acute Assessment and Plan: UTI noted on urinalysis with patient having significant symptoms. UA has been collected and culture has been sent. Patient is started on ceftriaxone, no current risk factors to be concern for sepsis or need to escalate antibiotic at this time. Continue ceftriaxone Urine culture with pansensitive klebsiella pneumonaie AM labs (4) Acute hyponatremia: Code(s): E87.1 - Hypo-osmolality and hyponatremia Status: Acute Assessment and Plan: Sodium 129, review of prior labs from prior hospitalizations shows the patient seems to manage slightly low sodium level. Now improved to 135. 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 (8) Ileostomy in place: Code(s): Z93.2 - Ileostomy status Status: Acute Assessment and Plan: Patient is scheduled for colonoscopy with GI and getting colostomy/ileostomy removed. (9) Hyperlipidemia: Code(s): E78.5 - Hyperlipidemia, unspecified Status: Acute Plan DVT prophylaxis Renal diabetic diet GI prophylaxis Continue to follow nephrology recommendations and monitor improving renal function Likely can transition to oral antibiotics on discharge if needed. DS: Summary Hospital Course Hospital Course: Patient is 68-year-old female with a past medical history of hypertension, hyperkalemia, chronic kidney disease, insulin-dependent diabetes hyperlipidemia who presents to the ED with urinary symptoms. Labs were performed initially showed a creatinine of 7.94. Patient was given IV fluids and creatinine is currently stable and back to her baseline at 1.8. Potassium on admission was 6.3 and patient was given Lokelma per Nephrology. Nephrology was consulted and did trend and monitor her renal function. Patient noted to have a UTI and was started on ceftriaxone which has been completed. Sodium was also noted to be 129 on admission is currently 132. Currently potassium is stable at 4.6. Patient did state that she was feeling better and is stable for discharge for labs and vital signs. Patient stated she was [facility] where she was getting [facility]. Spoke to Nephrology is recommending the patient repeat labs in 1 week. Currently patient is stable and is going back to the [facility] for further PT and OT. Status at Discharge Functional status at discharge: uses cane/walker Overall status at discharge: patient is progressing back to baseline Time Spent with Patient Time attestation: Total time spent providing and/or coordinating discharge services: 49 minutes Time spent: Greater than 30 minutes Specific discharge activities: Diagnostic testing, chart review, developing a treatment plan, education, care coordination documentation, physical exam, result review Exam Narrative: General: well appearing, appears stated age. HEENT: normocephalic, atraumatic. Mucous membranes moist. EOMI, PERRLA, bilateral sclera anicteric, no conjunctival injection. Neck supple without JVD, lymphadenopathy, or bruit. Respiratory: clear to ascultation bilaterally. No rales/rhonic/wheezes. Cardiovascular: Regular rate and rhythm, normal S1-S2 upon ascultation. No murmurs, rubs, or clicks. PMI is nondisplaced, capillary refill less than 3 second. Abdomen: Soft, round, no pulsatile masses, nondistended and nontender. No rebound, no guarding. No CVA tenderness, no hepatosplenomegaly. Bowel sounds present to all four quadrants. No high pitch or tinkling sounds, resonant to percussion. Extremities: No cyanosis, clubbing, or edema present. Pulses are palpable 2/2. Active ROM to all four extremities. Neuro: Alert and orientated x 4. PERRLA. Cranial nerves 2-12 intact without focal deficit. Skin: Warm, dry, and intact, without rash, erythema, or lesion. Psych: pleasant, cooperative, normal speech, normal affect, no hallucinations, no dysarthia DS: Data Data Completed and Pending Labs on day of discharge: Labs from last 24 hours 08/08/25 08/08/25 08/07/25 07:33 05:42 20:34 WBC 12.0 H RBC 2.53 L Hgb 7.7 L Hct 24.2 L MCV 95.7 MCH 30.4 MCHC 31.8 L RDW 13.2 Plt Count 187 MPV 10.4 Immature Gran % (Auto) 0.8 H Neut % (Auto) 81.7 H Lymph % (Auto) 10.7 L Page % (Auto) 5.1 Eos % (Auto) 1.2 Baso % (Auto) 0.5 Lymph # (Auto) 1.29 Page # (Auto) 0.6 Eos # (Auto) 0.1 Baso # (Auto) 0.1 Abs Immat Gran (auto) 0.10 H Absolute Neuts (auto) 9.8 H Absolute Nucleated RBC 0.000 Nucleated RBC % 0.0 Sodium 132 L Potassium 4.6 Chloride 107 Carbon Dioxide 19 L Anion Gap 6 BUN 31 H Creatinine 1.88 H Estim Creat Clear Calc 22 Estimated GFR 26 L Glucose 241 H POC Capillary Glucose 243 H 275 H Calcium 8.1 L Phosphorus 2.8 Total Bilirubin 0.6 AST 18 ALT 13 Alkaline Phosphatase 80 Total Protein 6.4 Albumin 3.2 L 08/07/25 08/07/25 16:42 11:50 WBC RBC Hgb Hct MCV MCH MCHC RDW Plt Count MPV Immature Gran % (Auto) Neut % (Auto) Lymph % (Auto) Page % (Auto) Eos % (Auto) Baso % (Auto) Lymph # (Auto) Page # (Auto) Eos # (Auto) Baso # (Auto) Abs Immat Gran (auto) Absolute Neuts (auto) Absolute Nucleated RBC Nucleated RBC % Sodium Potassium Chloride Carbon Dioxide Anion Gap BUN Creatinine Estim Creat Clear Calc Estimated GFR Glucose POC Capillary Glucose 264 H 333 H Calcium Phosphorus Total Bilirubin AST ALT Alkaline Phosphatase Total Protein Albumin Preliminary micro results at discharge 08/03/25 21:55 Blood Culture - Preliminary Blood 08/03/25 22:32 Blood Culture - Preliminary Blood Discharge Plan Discharge Attending physician on discharge: Frida Martinez Consulting providers: Leeann Mckinney Discharging Clinician: Bk Burks Patient Disposition: SNF Activity: may shower, unlimited and as tolerated Diet: heart healthy Discharge Instructions: * Take all medications as prescribed even if feeling better * Eat well balanced meals and stay hydrated * Keep active to remain strong * Avoid use of diapers or pads * [facility] every 2 hours * Trend urine output * If you should experience any chest pain, shortness of breath, temps >100.4 or any other worrisome symptoms please follow up with your PCP come back to the hospital * Follow up with your primary in 1 weeks * get labs in one week * It has been a pleasure taking care of you thank you for using our services Patient Language: Citizen Of [place] Stand Alone Forms: General Discharge Information Follow-up/Referrals: Connor Mccollum MD [Primary Care Provider, Family Practice] - 1 Week Discharge Medications: New sodium bicarbonate 650 mg Tablet 650 mg PO BID Qty: 60 0RF Continued sucralfate 100 mg/mL suspension 10 ml PO ACHS rosuvastatin 20 mg tablet 20 mg PO HS amiodarone 200 mg tablet 200 mg PO BID clopidogrel 75 mg tablet 75 mg PO DAILY pantoprazole 40 mg tablet,delayed release (DR/EC) 20 mg PO DAILY dicyclomine 10 mg Capsule 10 mg PO QID Qty: 90 0RF magnesium oxide 400 mg magnesium capsule 400 mg PO BID sertraline 25 mg tablet 25 mg PO DAILY metoprolol succinate 100 mg tablet extended release 24 hr 50 mg PO BID aspirin 81 mg Capsule 81 mg PO DAILY Humulin 70/30 U-100 Insulin 100 unit/mL (70-30) suspension 50 unit SUBCUT BID acetaminophen 325 mg capsule 650 mg PO Q6H PRN (Reason: pain) cetirizine [24Hour Allergy] 10 mg tablet 10 mg PO DAILY calcium polycarbophil [Fiber (calcium polycarbophil)] 625 mg tablet 625 mg PO DAILY diphenoxylate-atropine [Lomotil] 2.5-0.025 mg tablet 2 tablet PO BID PRN (Reason: diarrhea) ondansetron HCl 4 mg tablet 4 mg PO Q8H PRN (Reason: nausea and vomiting) insulin lispro [Humalog U-100 Insulin] 100 unit/mL solution 1 sliding scale dose subcut USEASDIRECTD Rx Instructions: inject as per sliding scale if 151-200 = 3 units. 201-250=5 units. 251-300 = 7 units. 301-350 = 9 units. 351-400 = 11 units. If 401 or above call md for further orders. subcutaneously before meals and at bedtime. losartan 100 mg tablet 25 mg PO DAILY Other Ambulatory Orders: Comprehensive Metabolic Panel (Routine) Timeframe: 1 Week Location: Determined by Patient Ordered By: Bk Burks Date of admission: 08/03/25 22:09 Primary Care Provider: Connor Mccollum Admitting Provider: Frida Martinez Attending physician on admission: Frida Martinez Condition: Stable Quality VTE Prophylaxis VTE prophylaxis: mechanical ordered Hospitalist MIPS Heart Failure (Exclusion) Patient has history of Heart Transplant or Left Ventricular Assistive Device?: No IF YES, STOP HERE Heart Failure (Qualifier) Patient has current or prior documentation of LVEF less than or equal to 40%, or mod/servere depressed LVSF?: No IF NO, STOP HERE
[2025-08-08 14:08] LABS: Immunoglobulin A, Qn 399 mg/dL (64-422); Immunoglobulin G, Qn 1010 mg/dL (586-1602); Immunoglobulin M, Qn 67 mg/dL (26-217)
[2025-08-08 18:08] LABS: Immunofixation (IFE), Urine Comment: (.)
[2025-08-08 19:08] LABS: Anti-GBM Antibodies <0.2 units (0.0-0.9)
[2025-08-10 04:07] LABS: Osmolality, Urine 253 mOsmol/kg (.)
[2025-08-10 15:09] LABS: Osmolality, Serum 303 mOsmol/kg (280-301)
== END 2025-08-08 12:20 | DRG 683 ==
LOC: ANHED 22:04 → ANH3MEDSUR 22:49
PROVIDERS: Internal Medicine Nephrology; Nurse Practitioner; Student in an Organized Health Care Education/Training Program; Admitting Provider General Practice; Emergency Provider Emergency Medicine; PCP Family Medicine; Visit Provider General Practice
DX: N17.9 Acute kidney failure, unspecified (principal); E87.1 Hypo-osmolality and hyponatremia; N39.0 Urinary tract infection, site not specified; E87.21 Acute metabolic acidosis; E86.0 Dehydration; E87.5 Hyperkalemia; B96.1 Klebsiella pneumoniae [K. pneumoniae] as the cause of diseases classified elsewhere; I12.9 Hypertensive chronic kidney disease with stage 1 through stage 4 chronic kidney disease, or unspecified chronic kidney disease; N18.9 Chronic kidney disease, unspecified; E11.22 Type 2 diabetes mellitus with diabetic chronic kidney disease; D63.1 Anemia in chronic kidney disease; I25.10 Atherosclerotic heart disease of native coronary artery without angina pectoris; E78.5 Hyperlipidemia, unspecified; M54.9 Dorsalgia, unspecified; K76.0 Fatty (change of) liver, not elsewhere classified; F41.9 Anxiety disorder, unspecified; E11.65 Type 2 diabetes mellitus with hyperglycemia; K80.20 Calculus of gallbladder without cholecystitis without obstruction; Z86.16 Personal history of COVID-19; I25.2 Old myocardial infarction; Z87.11 Personal history of peptic ulcer disease; Z79.4 Long term (current) use of insulin; Z89.421 Acquired absence of other right toe(s); Z95.5 Presence of coronary angioplasty implant and graft; Z93.3 Colostomy status; Z79.82 Long term (current) use of aspirin; Z93.2 Ileostomy status
CPT/HCPCS: 36415; 71045; 71250; 74176; 76770; 80048; 80053; 80069; 80076; 81001; 82436; 82550; 82570; 82595; 82784; 82948; 83036; 83880; 83930; 83935; 84100; 84133; 84156; 84166; 84300; 85025; 85027; 85652; 85999; 86037; 86038; 86060; 86140; 86160; 86162; 86215; 86225; 86235; 86334; 86335; 86364; 86703; 86705; 86706; 86803; 87040; 87086; 87186; 87340; 93005; 96374; 99285; A9270; G0432; J0612; J0696; J1815; J7030; J7120